=== PATIENT | female | born 1955 | race Caucasian/White ===

== ENCOUNTER 2019-06-06 12:31 | Observation (INO) | payer OTHER ==
[2019-05-30 11:30] LABS: BASOPHILS % 0.7 % (0.0-1.0); EOSINOPHILS # (AUTO) 0.1 (0.0-0.4); EOSINOPHILS % 1.8 % (0.0-6.0); HEMATOCRIT 42.1 % (34.2-44.1); HEMOGLOBIN 13.6 g/dL (12.0-16.0); LYMPHOCYTES # (AUTO) 1.9 (1.0-3.2); LYMPHOCYTES % 34.1 % (18.0-39.1); MEAN CORPUSCULAR HEMOGLOBIN 28.3 pg (28-32); MEAN CORPUSCULAR HGB CONC 32.3 g/dL (31-35); MEAN CORPUSCULAR VOLUME 87.5 fL (81-99); MONOCYTES # (AUTO) 0.7 (0.2-0.8); MONOCYTES % 11.8 % (4.4-11.3); NEUTROPHILS # (AUTO) 2.8 (2.1-6.9); NEUTROPHILS % 51.1 % (38.7-80.0); PLATELET COUNT 192 x10e3/uL (140-360); RED BLOOD COUNT 4.81 x10e6/uL (3.6-5.1); RED CELL DISTRIBUTION WIDTH 13.7 % (11.7-14.4)
[~2019-06-06] VITALS: Ht 154.9 cm; Wt 87.1 kg
[~2019-06-06 12:31] MED LIST: ADVAIR HFA 115-12 GM; ADVAIR HFA 115-12 GM IH; ADVAIR HFA 115-12 GM INH; AMITRIPTYLINE H10 MG PO; ATORVASTATIN CA10 MG PO; Aspirin PO; BACLOFEN10 MG PO; CETIRIZINE HCL10 MG PO; CLONAZEPAM0.5 MG PO; CLONAZEPAM1 MG PO; DICYCLOMINE HCL20 MG PO; FAMOTIDINE20 MG PO; GABAPENTIN400 MG PO; HYDROCHLOROTHIA25 MG PO; HYDROXYZINE HCL25 MG PO; METOPROLOL SUCC50 MG PO; MIRTAZAPINE15 MG PO; MONTELUKAST SOD10 MG PO; NORVASC5 MG PO; OMEPRAZOLE40 MG PO; PROTONIX40 MG/ML PO; PROVENTIL HFA6.7 GM; PROVENTIL HFA6.7 GM INH; REFRESH OPTIVE15 ML; SERTRALINE HCL50 MG PO; THEO-24100 MG PO; WELCHOL625 MG PO; [UNRECOGNIZED DRUG - CODE] PO
[2019-06-06] MEDS ORDERED: LIDOCAINE HCL 2% LOCAL INJ 5 ML SDV VIAL INJ ONE (14:05)
[2019-06-06] MEDS ORDERED: PROPOFOL IV EMULSION 10 MG/ML 50 ML VIAL ONE (14:05)
[2019-06-06] MEDS ORDERED: MIDAZOLAM HCL 2 MG/2 ML VIAL ONE ×2 (15:14→15:30)
[2019-06-06 20:00] VITALS: BP 147/101
[2019-06-06] MEDS: LORAZEPAM INJ 2 MG/ML VIAL IV PRN (20:45)
[2019-06-06] MEDS ORDERED: LORAZEPAM INJ 2 MG/ML VIAL ONE (20:48)
[2019-06-06 20:56] VITALS: BP 141/107
[2019-06-06 21:00] VITALS: BP 147/101
[2019-06-06 23:32] VITALS: BP 141/107
[2019-06-06 23:47] VITALS: BP 111/64
[2019-06-07] VITALS (8 sets, daily range): BP systolic 102–144; BP diastolic 64–73
[2019-06-07] MEDS: LORAZEPAM INJ 2 MG/ML VIAL IV PRN (03:45)
--- NOTE | 2019-06-07 06:27 | NUR ---
Called and spoke to Dr Russell Re: consult. She stated her privileges have for this facility. I called Dr Alba ( also consulted) office not open, was re-routed to and I left a message.
--- NOTE | 2019-06-07 07:45 | NUR ---
ASSESSMENT: Spiritual distress Pt tired and confused. Pt states she is "tired of being in pain." Pt's at bedside. Pt states she has been ill most of her life and is weary. Pt describes having a "sixth sense" and has had paranormal encounters. Pt struggles to make meaning of unusual experiences. Pt identifies as Religion. Intervention: Provided unhurried pastoral presence and empathic listening. Facilitated illness review and identification of emotions. 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 Outcome: Pt & expressed appreciation for visit. Will follow as able. MANOLO LAGUERRE Sustainable Design Coordinator Spiritual Care Department O: [phone]
--- NOTE | 2019-06-07 11:05 | Diagnostic Imaging Report ---
Examination: CT BRAIN WO CONTRAST History:Seizures. Comparison studies:Head CT performed January 24, 2016 Technique: Axial images were obtained from the skull base to the vertex. Coronal and sagittal images reconstructed from the axial data. Dose modulation, iterative reconstruction, and/or weight based adjustment of the mA/kV was utilized to reduce the radiation dose to as low as reasonably achievable. Intravenous contrast: None Findings: Scalp: No abnormalities. Bones: No fractures, blastic or lytic lesions. Brain sulci: Appropriate for age. Ventricles: Normal in size and configuration. No hydrocephalus. Extra-axial space: No abnormalities. Parenchyma: No masses, hemorrhage, or acute or chronic cortical based vascular insults.. Sellar/suprasellar region: No abnormalities. Craniocervical junction: Patent foramen magnum. No Chiari one malformation. Incidental findings: None. Impression: No new or acute intracranial abnormalities when compared to prior head CT performed January 24, 2016. Signed by: Dr. Margie Beaulieu M.D. on 06/07/2019 11:01 AM
--- NOTE | 2019-06-07 12:42 | NUR ---
DISCUSSED IN MDR'S OBSERVATION; POSSIBLE SEIZURES NURSING TO CALL FOR DC ORDERS WITH 2 OCLOCK F/U
[2019-06-07] MEDS ORDERED: HYDROXYZINE HCL 25 MG TAB PO SCH (17:00)
[2019-06-07] MEDS ORDERED: MONTELUKAST SODIUM 10 MG TAB PO SCH (21:00)
[2019-06-07] MEDS ORDERED: MIRTAZAPINE 15 MG TAB PO SCH ×2 (21:00)
[2019-06-07] MEDS ORDERED: GABAPENTIN 400 MG CAP PO SCH (21:00)
[2019-06-07] MEDS ORDERED: FAMOTIDINE 20 MG TAB PO SCH (21:00)
--- NOTE | 2019-06-08 04:41 | History and Physical ---
HISTORY OF PRESENT ILLNESS: The patient is a 64-year-old female, who has a past medical history positive for depression and anxiety, pseudoseizures, fatty liver, obesity, hyperlipidemia, hypertension, chronic back pain, came to the hospital for an EEG. She had a seizure-like episode and admitted to the medical floor for monitoring. CT of the head was negative. Rest of blood work negative. Dr. Alba, neurologist, saw the patient and recommended the patient to be discharged home. REVIEW OF SYSTEMS: CARDIOVASCULAR: NO chest pain or palpitation. RESPIRATORY: No shortness of breath. No cough. GASTROINTESTINAL: No nausea or vomiting. No diarrhea. GENITOURINARY: No frequency. No dysuria. ALLERGIES: SHE IS ALLERGIC TO A LONG LIST OF MEDICATION. SOCIAL HISTORY: She does not smoke. She does not drink. PAST MEDICAL HISTORY: Positive for fatty liver, obesity, hyperlipidemia, hypertension, gastritis, pseudoseizures, insomnia, and depression. PHYSICAL EXAMINATION: HEART: Showed regular rhythm. Normal S1, S2 sound. LUNGS: Clear bilaterally. EXTREMITIES: Show no evidence of cyanosis or hematoma. VITAL SIGNS: Blood pressure 117/73, temperature 97.8, heart rate 85 per minute, respiratory rate 18 per minute, O2 saturation 97%. FINAL IMPRESSION: 1. Pseudo-seizure. 2. Fatty liver. 3. Obesity. 4. Hyperlipidemia. 5. Hypertension. 6. Gastritis. 7. Back pain. 8. History of brain injury in the past. PLAN OF TREATMENT: Continue Bentyl 20 mg daily, Pepcid 20 mg at bedtime, gabapentin 400 mg three times a day, hydrochlorothiazide 25 mg daily. We are going to discontinue that and continue with Remeron 7.5 mg at bedtime, Singulair 10 mg daily, Protonix 40 mg daily, sertraline 25 mg daily. The patient is going to be discharged home and follow up with Dr. Alba, Neurology, who has recommended for her to be discharged home and do a followup EEG. She has diagnosis of seizure before. MD JOSE Pugh/CIARA /[id number]
[2019-06-08] MEDS ORDERED: HYDROCHLOROTHIAZIDE 25 MG TAB PO SCH (09:00)
[2019-06-08] MEDS ORDERED: PANTOPRAZOLE SOD 40 MG TABEC PO SCH (09:00)
[2019-06-08] MEDS ORDERED: SERTRALINE HCL 50 MG TAB PO SCH (09:00)
[2019-06-08] MEDS ORDERED: DICYCLOMINE HCL 20 MG TAB PO SCH (09:00)
--- NOTE | 2019-06-08 15:11 | Discharge Summary ---
HOSPITAL COURSE: A 64-year-old female, who has a past medical history positive for pseudoseizures, brain injury, fatty liver, obesity, hyperlipidemia, hypertension and recently diagnosed with gastritis, who had endoscopic evaluation. She came for an EGD. She had an episode of pseudoseizures, admitted to the hospital for observation. CT of the head came back negative. Blood work essentially unremarkable including CBC. The patient was seen by Neurology, Dr. Alba, who recommend the patient to be discharged home and follow up with him in a week for followup outpatient EEG. PHYSICAL EXAMINATION: VITAL SIGNS: Blood pressure 117/73, temperature 97.8, heart rate 85 per minute, respiratory rate 18 per minute, oxygen saturation 97%. HEART: Showed regular rhythm. Normal S1, S2 sound. LUNGS: Clear bilaterally. ABDOMEN: Soft. EXTREMITIES: Show no evidence of cyanosis or hematoma. IMPRESSION: 1. Pseudoseizures. 2. Fatty liver. 3. Obesity. 4. Gastritis. 5. Hyperlipidemia. 6. Hypertension. 7. Chronic back pain. 8. Insomnia. 9. Depression. PLAN OF TREATMENT: Continue same medication as dictated in my prior history and physical. Follow up with Neurology, Dr. Alba in a week for outpatient EEG. MD JOSE Pugh/CIARA /[id number]
--- OUTSIDE RECORDS SUMMARY | 2019-06-09 13:21 | XMS REPORT ---
Author [facility] Address Unknown Phone Unavailable Care Team Providers Care Bone Grinder Name Role Phone CECILKIANNA Unavailable Unavailable DILLAN IBRAHIM Unavailable Unavailable YOLANDA AGUILAR Unavailable Unavailable MACO DODD Unavailable Unavailable Payers Payer Name Policy Type Policy Number Effective Date Expiration Date Problems This patient has no known problems. Allergies, Adverse Reactions, Alerts Allergy Name Allergy Type Status Severity Reaction(s) Onset Date Inactive Date Treating Clinician Comments shellfish derived DA Active 2018-04-25 00:00:00 STEROIDS DA Active UT 2018-04-25 00:00:00 BLOOD THINNERS DA Active U 2018-04-25 00:00:00 tetanus and diphtheria toxoids DA Active 2017-08-01 00:00:00 penicillin G DA Active 2017-08-01 00:00:00 Sulfa (Sulfonamide Antibiotics) DA Active UT 2016-06-17 00:00:00 Tetanus Vaccines and Toxoid DA Active UT 2016-06-17 00:00:00 iodine DA Active UT 2016-06-17 00:00:00 codeine DA Active MO 2016-06-17 00:00:00 benzonatate DA Active MO 2016-06-17 00:00:00 albuterol DA Active MO 2016-06-17 00:00:00 aminocaproic acid DA Active MO 2016-06-17 00:00:00 clindamycin DA Active UT 2016-06-17 00:00:00 ciprofloxacin DA Active MO 2016-06-17 00:00:00 cyclobenzaprine DA Active MO 2016-06-17 00:00:00 brimonidine DA Active MO 2016-06-17 00:00:00 STERIODS DA Active UT 2016-06-17 00:00:00 Medications This patient has no known medications. Encounters Start Date/Time End Date/Time Encounter Type Admission Type Attending [facility] Facility Care Department Encounter ID 2019-03-08 13:44:00 2019-03-08 13:44:00 Emergency E MHSE [id number] Results Test Description Test Time Test Comments Text Results Atomic Results Result Comments CT BRAIN WO 2019-06-07 11:00:00 [place] [address] Patient Name: FIDELINA SARMIENTO MR #: [id number] : 1955 Age/Sex: 64/F Req #: [id number] Adm Physician: KIANNA HOYT MD Ordered by: KIANNA HOYT MD Report #: [id number] Location: [facility] Room/Bed: [place] [address] Procedure: [id number] CT/CT BRAIN WO Exam Date: 06/07/19 Exam Time: 1000 REPORT STATUS: Signed Examination: CT BRAIN WO CONTRAST History:Seizures. Comparison studies:Head CT performed January 24, 2016 Technique: Axial images were obtained from the skull base to the vertex. Coronal and sagittal images reconstructed from the axial data. Dose modulation, iterative reconstruction, and/or weight based adjustment of the mA/kV was utilized to reduce the radiation dose to as low as reasonably achievable. Intravenous contrast: None Findings: Scalp: No abnormalities. Bones: No fractures, blastic or lytic lesions. Brain sulci: Appropriate for age. Ventricles: Normal in size and configuration. No hydrocephalus. Extra-axial space: No abnormalities. Parenchyma: No masses, hemorrhage, or acute or chronic cortical based vascular insults.. Sellar/suprasellar region: No abnormalities. Craniocervical junction: Patent foramen magnum. No Chiari one malformation. Incidental findings: None. Impression: No new or acute intracranial abnormalities when compared to prior head CT performed January 24, 2016. Signed by: Dr. Tyrone Beaulieu M.D. on 06/07/2019 11:01 AM Dictated By: TYRONE DING MD 00 Transcribed By: DAREN on 06/07/191100 COPY TO: KIANNA HOYT MD TERMINAL ILEUM 2018-07-18 13:02:00 RUN DATE: 07/18/18 [facility] PAGE 1 RUN TIME: 1302 Specimen Inquiry RUN USER: INTERFACE PATIENT: FIDELINA SARMIENTO LOC: [facility] U #: [id number] AGE/SX: 63/F ROOM: RE07/14/18REG DR: Kianna Hoyt MD : 57 BED: DIS: STATUS: [facility] TLOC: SPEC #: [id number] RECD: 07/15/18 STATUS: FEMI SRIVASTAVA #: [id number] BOB: [birth year] [facility] DR: Kianna Hoyt MD ENTERED: 07/15/18 SP TYPE: TERM ILEUM OTHR DR: Mark Pacheco MD ORDERED: GROSS COPIES TO: Kianna Hoyt MD [address] [place] [id number] Mark Pacheco MD [address] [id number] PROCEDURES: GROSS (07/18/18-8928) TISSUES: 1. ILEUM, NOS - TERMINAL BX 2. COLON, NOS - RANDOM BX 3. DESCENDING COLON - BX CLINICAL HISTORY COLLECTION DATE: 07/14/18 ABDOMINAL PAIN, LOOSE STOOLS, COLON SCREENING FINAL DIAGNOSIS Terminal ileum, biopsy: SMALL BOWEL MUCOSA WITH UNREMARKABLE VILLOUS ARCHITECTURE AND MINIMAL CHRONIC INFLAMMATION NEGATIVE FOR MALIGNANCY Random colon, biopsy: COLONIC MUCOSA WITH MILD CHRONIC INFLAMMATION AND SCATTERED LYMPHOID AGGREGATES MILD REACTIVE EPITHELIAL CHANGE PRESENT NO HYPERPLASTIC OR ADENOMATOUS CHANGE PRESENT NEGATIVE FOR MALIGNANCY Descending colon, biopsy: COLONIC MUCOSA WITH PROMINENT LYMPHOID AGGREGATES AND MILD EDEMA NO HYPERPLASTIC OR ADENOMATOUS CHANGE PRESENT CONTINUED ON NEXT PAGE RUN DATE: 07/18/18 [place] - [facility] PAGE 2 RUN TIME: 1302 Specimen Inquiry RUN USER: INTERFACE SPEC #: [id number] PATIENT: FIDELINA SARMIENTO #[id number] (Continued) FINAL DIAGNOSIS (Continued) NEGATIVE FOR MALIGNANCY RRB/sm D [phone] MACROSCOPIC Specimen (1) is received in formalin, labeled with the patient's name, identified as "terminal ileum", and consists of oviedo biopsy tissue measuring 0.3 cm, submitted as (1). Specimen (2) is received in formalin, labeled with the patient's name, identified as "random colon", and consists of muliplt pink-light oviedo biopsy tissue measuring 0.5 cm in aggregate, submitted as (2). Specimen (3) is received in formalin, labeled with the patient's name, identified as "descending colon", and consists of red-brown biopsy tissue measuring 0.25 cm in aggregate, submitted as (3). GROSS PERFORMED AT [facility] [address] [place] [address] [phone] MICROSCOPIC MICROSCOPIC PERFORMED AT [facility] All of the stains, including any controls performed, stain appropriately. [facility] [address] [place] [address] (p)[phone] PERFORMING SITE Diagnosis performed at: [facility], [place] [address] [place], [place] [address] CONTINUED ON NEXT PAGE RUN DATE: 07/18/18 [facility]ella Cardeeo [facility] PAGE 3 RUN TIME: 1302 Specimen Inquiry RUN USER: INTERFACE SPEC #: [id number] PATIENT: FIDELINA SARMIENTO #[id number] (Continued) Signed SIGNATURE ON FILE Luis Chew 07/18/18 1302 END OF REPORT GLUBED 2018-07-14 13:39:00 GLUBED (test code=GLUBED) 91 mg/dL 74-106 Performed by certified cold molding press operator at [facility] [id number] 12:18:00* Test Item Value Reference Range Comments POTASSIUM (test code=K) 3.2 mmol/L 3.5-5.1 BASIC METABOLIC [id number] 12:23:00* Test Item Value Reference Range Comments SODIUM (test code=NA) 139 mmol/L 136-145 POTASSIUM (test code=K) 3.1 mmol/L 3.5-5.1 CHLORIDE (test code=CL) 103.0 mmol/L 98-107 CARBON DIOXIDE (test code=CO2) 27.0 mmol/L 21-32 ANION GAP (test code=GAP) 12.1 10-20 GLUCOSE (test code=GLU) 93 mg/dL 74-106 BLOOD UREA NITROGEN (test code=BUN) 14 mg/dL 7-18 GLOMERULAR FILTRATION RATE (test code=GFR) > 60 mL/min >=60 Estimated GFR by using Modified MDRD formula.Chronic kidney disease is defined as either kidney damageor GFR <60 mL/min/1.73 m2 for >3 months. CREATININE (test code=CREAT) 0.70 mg/dL 0.55-1.02 Note change in reference range due to change in reagent. BUN/CREATININE RATIO (test code=BUN/CREA) 20.6 10-20 CALCIUM (test code=CA) 9.5 mg/dL 8.5-10.1 CBC W/AUTO [id number] 12:19:00* Test Item Value Reference Range Comments WHITE BLOOD CELL (test code=WBC) 6.3 K/mm3 4.5-12.5 RED BLOOD CELL (test code=RBC) 4.97 mill/mm3 3.7-5.2 HEMOGLOBIN (test code=HGB) 13.7 gram/dL 11.5-15.5 HEMATOCRIT (test code=HCT) 42.4 % 36.0-46.0 MEAN CELL VOLUME (test code=MCV) 85.3 fL 80-98 MEAN CELL HGB (test code=MCH) 27.6 picogram 27.0-33.0 MEAN CELL HGB CONCETRATION (test code=MCHC) 32.3 gram/dL 33.0-36.0 RED CELL DISTRIBUTION WIDTH (test code=RDW) 14.0 % 11.6-16.2 RED CELL DISTRIBUTION WIDTH SD (test code=RDW-SD) 43.2 fL 37.0-51.0 PLATELET COUNT (test code=PLT) 201 K/mm3 150-450 MEAN PLATELET VOLUME (test code=MPV) 11.3 fL 6.7-11.0 NEUTROPHIL % (test code=NT%) 64.8 % 39.0-69.0 IMMATURE GRANULOCYTE % (test code=IG%) 0.5 % 0.0-5.0 LYMPHOCYTE % (test code=LY%) 26.3 % 25.0-55.0 MONOCYTE % (test code=MO%) 7.8 % 0.0-10.0 EOSINOPHIL % (test code=EO%) 0.0 % 0.0-5.0 BASOPHIL % (test code=BA%) 0.6 % 0.0-1.0 NUCLEATED RBC % (test code=NRBC%) 0.0 % 0-0 NEUTROPHIL # (test code=NT#) 4.07 K/mm3 1.8-7.7 IMMATURE GRANULOCYTE # (test code=IG#) 0.03 x10 3/uL 0-0.03 LYMPHOCYTE # (test code=LY#) 1.65 K/mm3 1.0-5.0 MONOCYTE # (test code=MO#) 0.49 K/mm3 0-0.8 EOSINOPHIL # (test code=EO#) 0.00 K/mm3 0.0-0.5 BASOPHIL # (test code=BA#) 0.04 K/mm3 0.0-0.2 NUCLEATED RBC # (test code=NRBC#) 0.00 K/mm3 0.0-0.1 MANUAL DIFF REQUIRED (test code=MDIFF) NO BASIC METABOLIC [id number] 12:18:00* Test Item Value Reference Range Comments SODIUM (test code=NA) 139 mmol/L 136-145 POTASSIUM (test code=K) 3.1 mmol/L 3.5-5.1 CHLORIDE (test code=CL) 103.0 mmol/L 98-107 CARBON DIOXIDE (test code=CO2) mmol/L 21-32 ANION GAP (test code=GAP) 10-20 GLUCOSE (test code=GLU) mg/dL 74-106 BLOOD UREA NITROGEN (test code=BUN) mg/dL 7-18 GLOMERULAR FILTRATION RATE (test code=GFR) mL/min >=60 CREATININE (test code=CREAT) mg/dL 0.55-1.02 BUN/CREATININE RATIO (test code=BUN/CREA) 10-20 CALCIUM (test code=CA) mg/dL 8.5-10.1 GASTRIC,[id number] 15:58:00 RUN DATE: 06/10/18 [place] - Lab PAGE 1 RUN TIME: 1558 Specimen Inqui ry RUN USER: INTERFACE PATIENT: FIDELINA SARMIENTO ACCT #: V [id number] LOC: [facility] U #: [id number] AGE/SX: 63/F ROOM: RE06/09/18[facility] DR: Kianna Hoyt MD : 57 BED: DIS: STATUS: [facility] TLOC: SPEC #: [id number] RECD: 06/09/18 STATUS: FEMI SRIVASTAVA #: [id number] BOB: [birth year]- SUBM DR: Kianna Hoyt MD ENTERED: 06/09/18 SP TYPE: GASTRIC BX OTHR DR: Mark Pacheco MD ORDERED: GROSS COPIES TO: Kianna oHyt MD [address] [place] [address] Mark Pacheco MD [address] [facility] [address] [place], [place] [address] PROCEDURES: GR OSS (06/10/18-105) TISSUES: GASTRIC FUNDUS - POLYP BX CS CLIN ICAL HISTORY COLLECTION DATE: 06/09/2018 HX: STOMACH POLYP DIANE VASQUEZ POLYPS FINAL DIAGNOSIS Gastric polyps, biopsy: FUNDIC TYPE GASTRIC POLYPS NEGATIVE FOR MALIGNANCY DMW/sm D 04605 MACROSCOPIC The specimen is received in formalin, labeled with the taylor ent's name, and identified as "gastric polyp snare". It consists of a oviedo dc ypoid fragment of tissue measuring 0.6 X 0.4 X 0.4 cm and multiple oviedo fragmen ts of tissue measuring 1.2 cm in aggregate. The polypoid portion is bisected and submitted CONTINUED ON NEXT PAGE ------ ------RUN DATE: 06/10/18 [facility] PAGE 2 RUN TIME: 1558 Specimen Inquiry RUN USER: INTERFACE SPEC #: [id number] PATIENT: FIDELINA SARMIENTO #[id number] (Continued) MACROSCOPIC (Continued) for microscopic evaluation in cassette (1A) and the remaining fragments are submitted for microscopic evaluation in cassette (1B). GROSS PERFORMED AT [facility] [address] [place] [address] ([phone] MICROSCOPIC MICR OSCOPIC PERFORMED AT [facility] All of the stains, including any c ontrols performed, stain appropriately. [facility] [address] [place] [address] (p)[phone] PERFORMING SITE Mabel gnosis performed at: [facility], [place] [address] [place] [address] Signed SIGN ATURE ON FILE Dee Dee Dey 06/10/18 1558 -------- ---- END OF REPORT TROPONIN [id number] 16:49:00* Test Item Value Reference Range Comments TROPONIN I (MICHAEL) (test swbw=341) < ng/mL 0.00-0.03 B-TYPE NATRIURETIC FACTOR (BNP)2018-05-14 16:49:00* Test Item Value Reference Range Comments B-TYPE NATRIURETIC PEPTIDE (BEAKER) (test ssss=133) 13 pg/mL 0-100 [id number] 16:42:00* Test Item Value Reference Range Comments MAGNESIUM (BEAKER) (test npjb=411) 2.2 mg/dL 1.6-2.6 Specimen slightly hemolyzed BASIC METABOLIC [id number] 16:42:00* Test Item Value Reference Range Comments SODIUM (BEAKER) (test cmyi=241) 143 meq/L 136-145 POTASSIUM (BEAKER) (test ijtb=238) 3.5 meq/L 3.5-5.1 Specimen slightly hemolyzed CHLORIDE (BEAKER) (test keia=660) 100 meq/L 98-107 CO2 (BEAKER) (test zkrf=993) 30 meq/L 22-29 BLOOD UREA NITROGEN (BEAKER) (test bxor=666) 9 mg/dL 7-21 CREATININE (BEAKER) (test rotl=942) 0.76 mg/dL 0.57-1.25 Specimen slightly hemolyzed GLUCOSE RANDOM (BEAKER) (test bivp=226) 108 mg/dL 70-105 CALCIUM (BEAKER) (test whbr=019) 10.3 mg/dL 8.4-10.2 EGFR (BEAKER) (test ifat=5665) 77 mL/min/1.73 sq m ESTIMATED GFR IS NOT ACCURATE CREATININE CLEARANCE IN PREDICTING GLOMERULAR FILTRATION RATE. ESTIMATED GFR IS NOT APPLICABLE FOR DIALYSIS PATIENTS. CBC W/PLT COUNT & AUTO [id number] 16:27:00* Test Item Value Reference Range Comments WHITE BLOOD CELL COUNT (BEAKER) (test rnwo=440) 6.8 K/ L 3.5-10.5 RED BLOOD CELL COUNT (BEAKER) (test eszv=453) 5.11 M/ L 3.93-5.22 HEMOGLOBIN (BEAKER) (test rczq=115) 14.4 GM/DL 11.2-15.7 HEMATOCRIT (BEAKER) (test jtxa=328) 44.5 % 34.1-44.9 MEAN CORPUSCULAR VOLUME (BEAKER) (test wpkq=779) 87.1 fL 79.4-94.8 MEAN CORPUSCULAR HEMOGLOBIN (BEAKER) (test rjqx=985) 28.2 pg 25.6-32.2 MEAN CORPUSCULAR HEMOGLOBIN CONC (BEAKER) (test qkms=620) 32.4 GM/DL 32.2-35.5 RED CELL DISTRIBUTION WIDTH (BEAKER) (test qxtg=947) 13.5 % 11.7-14.4 PLATELET COUNT (BEAKER) (test zbbn=755) 214 K/CU MM 150-450 MEAN PLATELET VOLUME (BEAKER) (test pdpl=015) 10.9 fL 9.4-12.3 NUCLEATED RED BLOOD CELLS (BEAKER) (test iuoi=659) 0 /100 WBC 0-0 NEUTROPHILS RELATIVE PERCENT (BEAKER) (test wjcg=718) 67 % LYMPHOCYTES RELATIVE PERCENT (BEAKER) (test nlae=830) 25 % MONOCYTES RELATIVE PERCENT (BEAKER) (test etgu=538) 8 % EOSINOPHILS RELATIVE PERCENT (BEAKER) (test gkwb=621) 0 % BASOPHILS RELATIVE PERCENT (BEAKER) (test ghql=736) 0 % NEUTROPHILS ABSOLUTE COUNT (BEAKER) (test stfh=077) 4.57 K/ L 1.56-6.13 LYMPHOCYTES ABSOLUTE COUNT (BEAKER) (test drvr=573) 1.68 K/ L 1.18-3.74 MONOCYTES ABSOLUTE COUNT (BEAKER) (test ceib=875) 0.51 K/ L 0.24-0.36 EOSINOPHILS ABSOLUTE COUNT (BEAKER) (test ikqf=438) 0.00 K/ L 0.04-0.36 BASOPHILS ABSOLUTE COUNT (BEAKER) (test zksk=078) 0.03 K/ L 0.01-0.08 IMMATURE GRANULOCYTES-RELATIVE PERCENT (BEAKER) (test adxo=1460) 0 % 0-1 RAD, CHEST, 1 VIEW, NON [id number] 15:54:00Reason for exam:->chest painFINAL REPORT INDICATION: chest pain COMPARISON:January 20, 2016 TECHNIQUE: Chest radiograph, single view, portable technique. FINDINGS / IM PRESSION: No pneumothorax, consolidation, pulmonary edema, or pleural effusion i s demonstrated. Cardiac and mediastinal contours are unremarkable for portable t echnique. Osseous structures unremarkable. Signed: Nelson Adam MDReport Cyndi ified Date/Time: 05/14/2018 15:54:56 Reading Location: [facility] C013X Ortho Consu Reading Room Electronically signed by: NELSON ADAM M.D. on 05/14 03:54 PM [id number] 13:35:00 RUN DATE: 04/01/18 [place] - Lab PAGE 1 RUN TIME: 1335 Specimen Inqui ry RUN USER: INTERFACE PATIENT: FIDELINA SARMIENTO ACCT #: V [id number] LOC: [facility] U #: [id number] AGE/SX: 63/F ROOM: RE03/31/18REG DR: Kianna Hoyt MD : 57 BED: DIS: STATUS: [facility] TLOC: SPEC #: [id number] RECD: 03/31/18 STATUS: FEMI REVandana #: [id number] BOB: [birth year]- SUBM DR: Kianna Hoyt MD ENTERED: 03/31/18 SP TYPE: STOMACH OTHR DR: Mark Pacheco MD ORDERED: GROSS COPIES TO: Kianna Hoyt MD [address] [place] [address] Mark Pacheco MD [address] [facility] [address] [place], [place] [address] PROCEDURES: GR OSS (04/01/18-1134) TISSUES: 1. BODY BIOPSY OF STOMACH - POLYP 2. DUODENUM, NOS - BX 3. ANTRAL BIOPSY - H-PYLORI 4. BODY BIOPSY OF STOMACH - BX CLINICAL HISTORY COLLECTION DATE: 03/31/18 HE ARTBURN FINAL DIAGNOSIS Gastric body polyp, biopsy: HYPERPLAST IC POLYP, GASTRIC MUCOSA SEPARATE FRAGMENTS GASTRIC MUCOSA WITH NO SIGNIF ICANT PATHOLOGIC ALTERATION NEGATIVE FOR HELICOBACTER ORGANISMS NEGATIVE FOR MALIGNANCY Duodenum, biopsy: DUODENAL MUCOSA WITH UNREMARKABLE VILLOUS ARCHITECTURE AND MILD CHRONIC INFLAMMATION NO INTRAEPITHELIAL ACUTE OR CHRONIC INFLAMMATION NEGATIVE FOR MAL IGNANCY Gastric antrum, biopsy: CONT INUED ON NEXT PAGE RUN DATE: 04/01/18 [place] - Lab PAGE 2 RUN TIME: 1335 Specimen Inquiry RUN USER: INTERFACE SPEC #: [id number] PATIENT: FIDELINA SARMIENTO #[id number] (Continued) FINAL DIAGNOSIS (Continued) REACTIVE GASTROPATHY NO ACUTE INFLAMMATORY INFILTRATE PRESENT NEGATIVE FOR INTESTINAL METAPLA ROMA NEGATIVE FOR HELICOBACTER ORGANISMS NEGATIVE FOR MALIGNANCY Gastric body, biopsy: FRAGMENT OF GASTRIC MUCOSA WITH NO PATHOLO GIC ALTERATION NEGATIVE FOR HELICOBACTER ORGANISMS RRB/duke Dye [phone] MACROSCOPIC The first specimen is received in formalin, labeled with the patient's name, identified as "polyp body", and consists of pink-oviedo biopsy tissue measuring 0.3 cm in aggregate, submitted as (1). The second specimen is received in formalin, labeled with the patie nt's name, identified as "duodenum", and consists of oviedo biopsy tissue measuri ng 0.35 cm in aggregate, submitted as (2). The third specimen is receive d in formalin, labeled with the patient's name, identified as "antrum", and co nsists of pink biopsy tissue measuring 0.3 cm in aggregate, submitted as (3) f or H E and Giemsa stains. The fourth specimen is received in formalin, lab eled with the patient's name, identified as "body", and consists of pink biops y tissue measuring 0.4 cm in aggregate, submitted as (4). GROSS PERFORME D AT [facility] [address] [place] [address], [place] [address] (p)[phone] MICROSCOPIC MICROSCOPIC PERFORMED A T [facility] All of the stains, including any controls performed, stain appropriately. [facility] [address] [place] [address], CONTINUED ON NEXT PAGE RUN DATE: [facility] PAGE 3 RUN TIME: 1335 Specimen Inquiry RUN US ER: INTERFACE -------- ----SPEC #: [id number] PATIENT: FIDELINA SARMIENTO #[id number] (Continued) MICROSCOPIC (Continued) [place] [address] (P)[phone] PERFORMING SITE Diagnosis lilibeth d at: [facility], [place] [address] [facility] [address] Signed SIGNATURE ON FILE Luis Chew 04/01/18 1335 END OF REPORT BASIC METABOLIC [id number] 09:09:00* Test Item Value Reference Range Comments SODIUM (MICHAEL) (test xxro=266) 141 meq/L 136-145 POTASSIUM (BEAKER) (test ofin=625) 4.0 meq/L 3.5-5.1 CHLORIDE (BEAKER) (test jeks=928) 104 meq/L 98-107 CO2 (BEAKER) (test mxez=574) 27 meq/L 22-29 BLOOD UREA NITROGEN (BEAKER) (test gqrq=401) 19 mg/dL 7-21 CREATININE (BEAKER) (test sybu=009) 0.87 mg/dL 0.57-1.25 GLUCOSE RANDOM (BEAKER) (test bmay=823) 100 mg/dL 70-105 CALCIUM (BEAKER) (test fbhn=158) 10.1 mg/dL 8.4-10.2 EGFR (BEAKER) (test etmh=5985) 66 mL/min/1.73 sq m ESTIMATED GFR IS NOT ACCURATE CREATININE CLEARANCE IN PREDICTING GLOMERULAR FILTRATION RATE. ESTIMATED GFR IS NOT APPLICABLE FOR DIALYSIS PATIENTS. [id number] 08:53:00* Test Item Value Reference Range Comments PARTIAL THROMBOPLASTIN TIME (BEAKER) (test koct=259) 30.3 seconds 22.5-36.0 CBC (HEMOGRAM ONLY)2017-12-06 08:44:00* Test Item Value Reference Range Comments WHITE BLOOD CELL COUNT (BEAKER) (test aytw=316) 7.9 K/ L 3.5-10.5 RED BLOOD CELL COUNT (BEAKER) (test ousv=147) 5.35 M/ L 3.93-5.22 HEMOGLOBIN (BEAKER) (test aekd=616) 15.1 GM/DL 11.2-15.7 HEMATOCRIT (BEAKER) (test wolo=311) 46.9 % 34.1-44.9 MEAN CORPUSCULAR VOLUME (BEAKER) (test ydjf=503) 87.7 fL 79.4-94.8 MEAN CORPUSCULAR HEMOGLOBIN (BEAKER) (test egbk=551) 28.2 pg 25.6-32.2 MEAN CORPUSCULAR HEMOGLOBIN CONC (BEAKER) (test pytu=300) 32.2 GM/DL 32.2-35.5 RED CELL DISTRIBUTION WIDTH (BEAKER) (test nawz=844) 13.7 % 11.7-14.4 PLATELET COUNT (BEAKER) (test ioje=594) 230 K/CU MM 150-450 MEAN PLATELET VOLUME (BEAKER) (test sfqd=721) 10.6 fL 9.4-12.3 NUCLEATED RED BLOOD CELLS (BEAKER) (test izui=091) 0 /100 WBC 0-0 EEG MONITORING WITH VIDEO RECORDING EACH 24 [id number] 16:47:00Reason for exam:->EMU admit- h/o PNESEPILEPSY MONITORING UNIT - VIDEO EEG STUDY EEG NUMBER: [id number] ACCESSION NUMBERS: [id number], [id number], [id number], [id number] OF RECORDIN10/04/17, and recording started at 10:42 END OF RECORDIN10/08/17, and recording ended at 08:04 TOTAL RECORDING HOURS: 93.5ICD - 10: F44.9 TECHNICAL SUMMARY: This continuous Video-EEG record is run with a digital EEG machine, 24 channels, with standard International System 10-20 electrode placements, eye movement leads, and an EKG lead.Recording Day #1 (10/04/17, 10:42 to 10/05/17, 06:15) BASELINE AWAKE: During the maximally awake state, a posterior dominant rhythm of 10 Hz alpha is present over bilateral occipital regions. More anteriorly, similar as well as faster activities occur, including much admixtures of 18-21 Hz beta activity. SLEEP: As the patient enters drowsiness, the overall background amplitudes are relatively diminished, while increased amounts of diffuse 5-7 Hz theta and rhythmical slowing emerge. With sleep, positive occipital sharp transients, vertex waves, and sleep spindles are present and symmetrically expressed. HYPERVENTILATION is not performed. PHOTIC STIMULATION is not performed. EVENTS: There are approximately 13 typical clinical events observed during recording day #1 Clinical: The typical clinical semiology is variable with waxing and waning intensity throughout each event and throughout the day, often with indistinct clinical offset. Onset is exclusively out of wakefulness. The majority of events start with right arm irregular/starting-stopping tremulousness with subsequent regional and occasion al contralateral propagation. There is often irregular/starting-stopping lateral head movement. At times, there is axial flexion/extension (rocking/swaying move ments); grimacing facial expression with eyes closed and mouth open; crying/moan ing vocalizations; dysarthric, halting and immature style speech; occasional upw horace gaze deviation with eyes open; and decreased responsiveness to stimulation. At times, the patient is able to respond to questions and commands appropriately during these events. On other occasions, patient is poorly responsive and amnes tic for some details of events. Electrographically, these events coincide with no epileptiform correlate. During periods of clinical unresponsiveness, the pat ient's typical awake background activity is present, including a normal posterio r dominant rhythm. Recording Day #2 (10/05/17, 06:15 to 10/06/17, 06:15) BASE LINE AWAKE, SLEEP: Not significantly changed compared to the previous day. EV ENTS: There are approximately 16 typical events observed during recording day #2 .Clinical: The events observed during recording day #2 are of a similar variable waxing/waning semiology as those described during recording day #1. In addition, several events are triggered by or associated with pain or noxious stimuli, e.g. "stabbing" sensation in chest/back, "electric shock" sensations in the back or legs, "high-pitched noise." Electrographically, these events coincide with no epileptiform correlate. Recording Day #3 (10/06/17, 06:15 to 10/07/17, 06:15) BASELINE AWAKE, SLEEP: Not significantly changed compared to the previous day. EVENTS: There are approximately 14 typical events observed during recording day #3.Clinical: The events observed during recording day #3 are of a similar robb iable waxing/waning semiology as those described during recording days #1 and 2. Electrographically, these events coincide with no epileptiform correlate. Rec ording Day #4 (10/07/17, 06:15 to 10/08/17, 08:04) BASELINE AWAKE, SLEEP: Not significantly changed compared to the previous day. EVENTS: There are approxi mately 10 typical events observed during recording day #4.Clinical: The events o bserved during recording day #4 are of a similar variable waxing/waning semiolog y as those described during recording days #1-3. SUMMARY OF VIDEO-EEG MONITORI NG COURSE: 1). Normal EEG of the awake, drowsy, and asleep states. 2). Approxim ately 53 habitual clinical events are observed as detailed above, described by t he patient and her as representing the full spectrum of the patient's charles bitual events of interest. Events are mostly characterized by unilateral arm irr egular/starting-stopping tremulousness with subsequent regional or contralateral propagation. There is wax/waning lateral head movement, followed by axial flexi on/extension (rocking/swaying movements), grimacing facial expression with eyes closed and mouth open, crying/moaning vocalizations, dysarthric, halting and imm ature style speech. For all captured events, concurrent EEG recordings coincide with no epileptiform correlate. Clinical Correlation: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
--- OUTSIDE RECORDS SUMMARY | 2019-06-09 13:21 | XMS REPORT | Summary of Care ---
Author Author [facility] - Health Organization [facility] - Health Address Unknown Phone Unavailable Care Team Providers Care Company Controller Name Role Phone Fabien Fernandes MD Unavailable Leena Bañuelosynpatricia MURILLO PCP Reason for Visit * Reason Comments Pain Encounter Details Care Team Description Date Type Department Sukh Harris MD [id number] [place] [address] Spondylosis of lumbar region without myelopathy or radiculopathy (Primary Dx); Chronic lumbar radiculopathy 01/12/2019 Office Visit [facility] - [address], [address] [place] [address] Allergies Comments Active Allergy Reactions Severity Noted Date Azithromycin Itching 01/07/2019 Ciprofloxacin Rash 01/27/2018 Clindamycin Other - See Medium 10/05/2016 comments, Itching Clonazepam Itching, Medium 11/23/2017 Rash, Swelling All steroids-muscle weakness t Corticosteroids Rash 01/20/2016 (Glucocorticoids) Iodine Rash 10/05/2016 Lincomycin Rash Medium 09/15/2017 Nitrofurantoin Rash 01/27/2018 steroid Other [place]-3s Anaphylaxis 01/27/2018 States it would be fatal Penicillins Other - See High 01/20/2016 comments, Shortness of Breath Sulfa (Sulfonamide Other - See 01/20/2016 Antibiotics) comments, Swelling New string of tetanus- went to ER , medication for throat closing up Tetanus Vaccines And Swelling High 01/20/2016 Toxoid documented as of this encounter (statuses as of 01/12/2019) Medications End Date Status Medication Sig Dispensed Refills Start Date Active ALBUTEROL SULFATE Inhale. 0 (PROVENTIL INHALE) Active hydrOXYzine 25 mg tablet Take 25 mg by 0 mouth every 6 (six) hours. Active montelukast 10 mg tablet Take 10 mg by 0 mouth. Active cetirizine 10 mg tablet Take 10 mg by 3 mouth every 8 morning. Active LORazepam 0.5 mg tablet Take 0.5 mg 0 by mouth 8 daily. Active fluticasone-salmeterol Inhale 2 0 (ADVAIR HFA) 115-21 Puffs 2 (two) 8 mcg/actuation inhaler times daily. Active albuterol 90 Inhale 2 0 mcg/actuation inhaler Puffs 2 (two) times daily. Active hydroCHLOROthiazide 25 mg Take 1 tablet 90 tablet 3 tablet by mouth 8 daily. Active lidocaine 5 % (700 Apply 1 Patch 30 Each 2 mg/patch) to area(s) 9 patchIndications: Chronic every 12 bilateral low back pain (twelve) with right-sided hours. sciatica, Facet arthritis of lumbar region, DDD (degenerative disc disease), lumbar Active omeprazole 40 mg capsule TAKE 1 3 CAPSULE BY 9 MOUTH EVERY DAY Active VITAMIN D2 50,000 unit TAKE ONE 2 capsule CAPSULE BY 9 MOUTH ONCE A WEEK Active famotidine 20 mg tablet Take 20 mg by 3 mouth daily. 9 Active dicyclomine 20 mg tablet 0 9 Active estradiol (ESTRACE) 0.01 Insert 0.5 g 42.5 g 3 % (0.1 mg/gram) vaginal vaginally 9 creamIndications: with Recurrent UTI fingertip x 7 days , then x 2 week Active acetaminophen-codeine Take 1 tablet 60 tablet 2 (TYLENOL-CODEINE #3) by mouth 9 300-30 mg daily. tabletIndications: Radiculopathy of thoracolumbar region Active CBD oil (ABELARDO'S HOPE) Take by 0 20:1 with safflower mouth as needed (Seizure, pain). Active AMLODIPINE 5 mg tablet TAKE 1 TABLET 30 tablet 0 BY MOUTH 9 EVERY DAY Active GABAPENTIN 400 mg TAKE 1 90 capsule 2 capsuleIndications: CAPSULE BY 9 Radiculopathy of MOUTH THREE thoracolumbar region TIMES A DAY Active mirtazapine 30 mg Take 1 tablet 30 tablet 0 tabletIndications: by mouth at 9 Pseudoseizures bedtime. 01/12/2019 Active diphenhydrAMINE Take 1 20 capsule 0 (BENADRYL) 25 mg capsule by 9 capsuleIndications: mouth every 6 Allergic reaction, (six) hours initial encounter as needed for Itching or Allergies for up to 5 days. Active famotidine (PEPCID) 20 mg Take 1 tablet 10 tablet 0 tabletIndications: by mouth 2 9 Allergic reaction, (two) times initial encounter daily. Active LISINOPRIL 5 mg TAKE 1 TABLET 30 tablet 1 tabletIndications: BY MOUTH 9 Essential hypertension EVERY DAY documented as of this encounter (statuses as of 01/12/2019) Active Problems Problem Noted Date Seizures 12/16/2018 Obesity (BMI 30-39.9) 12/16/2018 Seizure disorder 05/17/2018 Recurrent UTI 05/17/2018 Diarrhea, unspecified type 05/17/2018 Frequent falls Seizure Overview: (nonepileptic psychogenic) documented as of this encounter (statuses as of 01/12/2019) Immunizations Name Administration Dates Next Due Influenza Virus Vaccine 03/21/2017 Influenza Virus Vaccine 04/19/2018 Quad ID [id number] YRS documented as of this encounter Social History Date Tobacco Use Types Packs/Day Years Used Former Smoker Smokeless Tobacco: Never Used Drinks/Week oz/Week Comments Alcohol Use No Sex Assigned at Date Recorded Not on file Industry Job Start Date Occupation Not on file Not on file Not on file Travel End Travel History Travel Start No recent travel history available. documented as of this encounter Last Filed Vital Signs Reading Time Taken Comments Vital Sign 115/76 01/12/2019 2:10 PM CDT Blood Pressure 104 01/12/2019 2:10 PM CDT Pulse - - Temperature - - Respiratory Rate - - Oxygen Saturation - - Inhaled Oxygen Concentration 83 kg (183 lb) 01/12/2019 2:10 PM CDT Weight 154.9 cm (5' 1") 01/12/2019 2:10 PM CDT Height 34.58 01/12/2019 2:10 PM CDT Body Mass Index documented in this encounter Progress Notes * Sukh Harris MD - 01/12/2019 2:00 PM CDT Chief Complaint:continuing back pain History of Present illness: John Nieto is a 63 year old female with longstanding lower back pain. Has had problems with constipation. . 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 Seen in neurology clinic here yesterday with a manifestation of pseudo seizure, recovered without incident; desired an increase in her T3 at that time to among other things assist her in sleeping, and presents today for evaluation to that end. Location: generalized through the lower back, but also the thoracic and cervical spines and the head and scalp as well -duration: longstanding/for years -context: in the context of also psychogenic factors and pseudoseizures -radiation: equivocal -timing: longstanding -quality: rather generalized and nonspecific -improves with: medication -worsens with: certain movements PAIN NRS SCALE 0-10 SCORE OVER LAST WEEK (0=no pain and 10=worst pain imaginable): Best:3/10 Worst: 10/10 Now: 12/28 CURRENT PAIN REGIMEN: -Tylenol #3 one tablet PO bid ADVERSE EFFECTS FROM CURRENT REGIMEN: A propensity for constipation. FUNCTIONAL STATUS ON CURRENT REGIMEN: Walks using walker or behind wheelchair. Baseline impairment/cerebral palsy is u nchanged; has adapted to slide down a nearby wall to avoid injuring herself when the episodes/pseudoseizures occur OTHER MEDS TRIED/ ADVERSE SIDE EFFECTS: Muscle relaxants: Flexeril, Robaxin, Baclofen, Zanaflex, Other Neuropathic agents:Lyrica, Gabapentin, Amitriptyline, Cymbalta, Other NSAIDS: Naproxen, Mobic, Celebrex, other Patient discontinued Tylenol 3 PAIN INTERVENTIONAL PROCEDURES DONE BY US/ DATES: No recent pain interventions. Current Outpatient Prescriptions Medication Sig Dispense Refill mirtazapine 15 mg tablet Take one tab at night for 10 days then 2 tablets at night for ten days then 3 tablets at night 90 tablet 2 acetaminophen-codeine (TYLENOL-CODEINE #3) 300-30 mg tablet Take 1 tablet by mouth daily. 30 tablet 0 gabapentin 400 mg capsule Take 1 capsule by mouth 3 (three) times daily. 90 capsule 2 lisinopril 5 mg tablet Take 1 tablet by mouth daily. 30 tablet 1 dicyclomine 20 mg tablet estradiol (ESTRACE) 0.01 % (0.1 mg/gram) vaginal cream Insert 0.5 g vaginall y with fingertip x 7 days , then x 2 week 42.5 g 3 famotidine 20 mg tablet Take 20 mg by mouth daily. 3 omeprazole 40 mg capsule TAKE 1 CAPSULE BY MOUTH EVERY DAY 3 VITAMIN D2 50,000 unit capsule TAKE ONE CAPSULE BY MOUTH TWICE A WEEK 2 lidocaine 5 % (700 mg/patch) patch Apply 1 Patch to area(s) every 12 (twelve ) hours. 30 Each 2 hydroCHLOROthiazide 25 mg tablet Take 1 tablet by mouth daily. 90 tablet 3 albuterol 90 mcg/actuation inhaler Inhale 2 Puffs 2 (two) times daily. cetirizine 10 mg tablet Take 10 mg by mouth every morning. 3 fluticasone-salmeterol (ADVAIR HFA) 115-21 mcg/actuation inhaler Inhale 2 Pu ffs 2 (two) times daily. gabapentin 300 mg capsule Take 300 mg by mouth 3 (three) times daily. LORazepam 0.5 mg tablet Take 0.5 mg by mouth daily. ALBUTEROL SULFATE (PROVENTIL INHALE) Inhale. amLODIPine 5 mg tablet Take 5 mg by mouth daily. hydrOXYzine 25 mg tablet Take 25 mg by mouth every 6 (six) hours. montelukast 10 mg tablet Take 10 mg by mouth. No current facility-administered medications for this visit. Past Medical History: Diagnosis Date Depression Hyperlipidemia Hypertension IBS (irritable bowel syndrome) Osteoporosis b/l hip Seizure (nonepileptic psychogenic) Past Surgical History: Procedure Laterality Date CHOLECYSTECTOMY HYSTERECTOMY TONSILLECTOMY Review of Systems (BOLDED IF POSITIVE, OTHERWISE NEGATIVE) Other pertinent positives annotated above in HPI. General: Fatigue, Unintentional Weight Loss or Weight Gain HEENT: Dry Mouth Cardio: Myocardial infarction/Heart Attack, Heart Rhythm Abnormalities, Abnormal EKGs, History of Coronary Stents, Blood Thinning Medication (Aspirin, Plavix/Cl opidogrel, Heparin/Lovenox) Pulm: Obstructive Sleep Apnea, Snore at night, Use CPAP machine, Smoker, Chron ic Obstructive Pulmonary Disease (COPD) GI: Constipation, Diarrhea, Nausea and Peptic Ulcer Disease, Blood in Stool :Difficulty Urinating Endo: Diabetesand Steroid use Neuro: Glaucoma, Difficulty Walking,Headaches, Numbness, Seizures, Strokes and Weakness MS:Neck Pain,Back Pain, Back Surgery and Muscle Aches Heme: Clotting Difficulties and Easy Bleeding Sleep: Daytime Somnolence, Fogginess of Thought, Inability to Complete Tasks,I nsomnia Psych: Depression, Anxiety, Thoughts Harming Oneself or Thoughts of Harming Ot hers All other systems reviewed and are normal. Physical Exam: BP 108/76 (BP Location: Left arm, Patient Position: Sitting, BP CUFF SIZE: Adult Large) | Pulse 82 | Ht 5' 1" (1.549 m) | Wt 177 lb (80.3 kg) | BMI 33.44 kg/m Body mass index is 33.44 kg/m. GENERAL:John mark is a well developed, well nourishedwoman HEENT:normocephalic atraumatic and moist mucous membranes, anicteric sclera bilaterally LUNGS:normal excursion, no respiratory distress CARDIOVASCULAR:normal pulse rate, warm extremities, no gross edema noted MUSCULOSKELETAL/NEUROLOGIC EXAM: Mental Status:there is some emotional lability and halting speech, but not herbert ssly mentally impaired; there is a little latency Gait-antalgic Upper Extremities Strength: Moves upper extremities well, but displays signs of congenital nerve palsies/poo r gripping. All of this is chronic/longstanding. Spine Exam: There is generalized tenderness of the cervical, thoracic, and lumbar spines, wo rse in the lower lumbar spine, right greater than left, without radiculopathy an d with negative bilateral straight leg raise. Sree signs- positive Axial loading Skin rolling Overreaction Laboratory Last Metabolic Panel (including BUN/Cr and LFTs) CMP NA (mmol/L) Date Value 08/31/2018 145 K (mmol/L) Date Value 08/31/2018 3.4 (L) CALCIUM (mg/dL) Date Value 08/31/2018 9.7 08/31/2018 9.7 CL (mmol/L) Date Value 08/31/2018 100 BUN (mg/dL) Date Value 08/31/2018 18 CREATININE (mg/dL) Date Value 08/31/2018 0.80 GLUCOSE (mg/dL) Date Value 08/31/2018 101 CO2 TOTAL (mmol/L) Date Value 08/31/2018 33 (H) ALBUMIN (g/dL) Date Value 05/02/2018 5.1 (H) T PROTEIN (g/dL) Date Value 05/02/2018 7.6 TOTAL BILI (mg/dL) Date Value 05/02/2018 0.4 ALT(SGPT) (U/L) Date Value 05/02/2018 55 (H) AST(SGOT) (U/L) Date Value 05/02/2018 32 ALK PHOS (U/L) Date Value 05/02/2018 80 Radiology Pertinent Films No recent imaging Medical Decision Making: Dx: - Encounter Diagnosis Name Primary? Radiculopathy of thoracolumbar region Yes Assessment/Plan: It is not untoward to resume T3 BID; we have cautioned to use OTC laxatives to c ompensate for constipating effects. Medications -increase T3 to BID Rehab: Physical therapy We will recommend an evaluation by PT with sessions to start in the future once patient's pain is better controlled. Psych: Pseudoseizures are perhaps a maladaptive pain behavior Follow Up: Right lumbar medial branch blocks at L2 -L3 , L3-L4 and L4-L5 levels. documented in this encounter Plan of Treatment Care Team Description Date Type Specialty Chas Poon MD [address] [place] [id number] [place] [address] [phone] Juanita Casas, PT 01/20/2019 Ancillary Visit Physical Therapy Chas Poon MD [address] [place] [id number] [place] [address] [id number] Juanita Casas, PT 01/25/2019 Ancillary Visit Physical Therapy Cassandra Pierre MD [address] [place] [address]. [place] [address] 01/30/2019 Office Visit Internal Medicine Dieter Zohu MD [address] [place] [id number] [place] [address] [id number] 02/01/2019 Office Visit Pulmonary Disease Juanita Casas, PT 02/03/2019 Ancillary Visit Physical Therapy Sukh Harris MD [address] [facility] [id number] [place] [address] [id number] 02/09/2019 Office Visit Pain Medicine Zoila Rodas AGNP [address] [place] [address] [phone] 03/01/2019 Office Visit Nephrology Sukh Harris MD [address] [address] [phone] 03/23/2019 Office Visit Pain Medicine Health Maintenance Due Date Last Done Comments HEPATITIS C (HCV) SCREEN 1955 DTaP,Tdap,and Td Vaccines 02/23/1975 (1 - Tdap) COLONOSCOPY 02/23/2006 Zoster Recombinant 02/23/2006 Vaccine (SHINGRIX) (1 of 2) INFLUENZA VACCINE 02/19/2019 04/19/2018, 03/21/2017 MAMMOGRAM 08/08/2019 08/08/2018 LUNG CANCER SCREEN: 10/19/2019 10/18/2018 Recommended for age 55-80 with 30 + pack year history PAP SMEAR 08/02/2021 08/02/2018 PNEUMOCOCCAL 0-64 YEARS Aged Out No longer eligible based COMBINED SERIES on patient's age to complete this topic documented as of this encounter Results Not on filedocumented in this encounter Visit Diagnoses Diagnosis Spondylosis of lumbar region without myelopathy or radiculopathy - Primary Lumbosacral spondylosis without myelopathy Chronic lumbar radiculopathy Thoracic or lumbosacral neuritis or radiculitis, unspecified documented in this encounter Insurance Type Payer Benefit Subscriber ID Effective Phone Address Plan / Dates Group Medicaid [facility] xxxxxxxxx 2015-P PLAN - MANAGED MEDICAID STAR PLUS resent documented as of this encounter
--- OUTSIDE RECORDS SUMMARY | 2019-06-09 13:21 | XMS REPORT | Summary of Care ---
Author Author [facility] - Health Organization [facility] - Health Address Unknown Phone Unavailable Care Team Providers Care Petrophysical Engineer Name Role Phone Fabien Fernandes MD Unavailable Leena Bañuelosynpatricia MURILLO PCP Reason for Visit * Reason Comments Pain Encounter Details Care Team Description Date Type Department Sukh Harris MD [id number] [place] [address] Spondylosis of lumbar region without myelopathy or radiculopathy (Primary Dx); Chronic lumbar radiculopathy 01/12/2019 Office Visit [facility] - [address], [address] [place] [address] Allergies Comments Active Allergy Reactions Severity Noted Date Azithromycin Itching 01/07/2019 Ciprofloxacin Rash 01/27/2018 Clindamycin Other - See Medium 10/05/2016 comments, Itching Clonazepam Itching, Medium 11/23/2017 Rash, Swelling All steroids-muscle weakness t Corticosteroids Rash 01/20/2016 (Glucocorticoids) Iodine Rash 10/05/2016 Lincomycin Rash Medium 09/15/2017 Nitrofurantoin Rash 01/27/2018 steroid Other [place]-3s Anaphylaxis 01/27/2018 States it would be fatal [...] Description Date Type Specialty Chas Poon MD [address] [place] [id number] [place] [address] [phone] Juanita Casas, PT 01/20/2019 Ancillary Visit Physical Therapy Chas Poon MD [address] [place] [id number] [place] [address] [phone] Juanita Casas, PT 01/25/2019 Ancillary Visit Physical Therapy Cassandra Pierre MD [address] [place] [address]. [place] [address] 01/30/2019 Office Visit Internal Medicine Dieter Zhou MD [address] [place] [id number] [place] [address] [id number] 02/01/2019 Office Visit Pulmonary Disease Juanita Casas, PT 02/03/2019 Ancillary Visit Physical Therapy Sukh Harris MD 301 [facility] [id number] [place], [place] [address] 02/09/2019 Office Visit Pain Medicine Zoila Rodas AGNP [address] [place] [address] [phone] 03/01/2019 Office Visit Nephrology Health Maintenance Due Date Last Done Comments [...] Phone Address Plan / Dates Group Medicaid [employer] [place] xxxxxxxxx 2015-P PLAN - MANAGED MEDICAID STAR PLUS resent documented as of this encounter
--- OUTSIDE RECORDS SUMMARY | 2019-06-09 13:21 | XMS REPORT | Summary of Care ---
Author Author [facility] - Health Organization [facility] - Health Address Unknown Phone Unavailable Care Team Providers Care Movie Editor Name Role Phone Fabien Fernandes MD Unavailable Leena Bañuelosynpatricia MURILLO PCP Reason for Visit * Reason Comments Pain Encounter Details Care Team Description Date Type Department Sukh Harris MD [id number] [place] [address] Spondylosis of lumbar region without myelopathy or radiculopathy (Primary Dx); Chronic lumbar radiculopathy 01/12/2019 Office Visit [facility] - [address], [address] [place] [address] Allergies Comments Active Allergy Reactions Severity Noted Date Azithromycin Itching 01/07/2019 Ciprofloxacin Rash 01/27/2018 Clindamycin Other - See Medium 10/05/2016 comments, Itching Clonazepam Itching, Medium 11/23/2017 Rash, Swelling All steroids-muscle weakness t Corticosteroids Rash 01/20/2016 (Glucocorticoids) Iodine Rash 10/05/2016 Lincomycin Rash Medium 09/15/2017 Nitrofurantoin Rash 01/27/2018 steroid Other [place]-3s Anaphylaxis 01/27/2018 States it would be fatal [...] Description Date Type Specialty Chas Poon MD [address] [place] [id number] [place] [address] [phone] Juanita Casas, PT 01/20/2019 Ancillary Visit Physical Therapy Chas Poon MD [address] [place] [id number] [place] [address] [phone] Juanita Casas, PT 01/25/2019 Ancillary Visit Physical Therapy Cassandra Pierre MD [address] [place] [address]. [place] [address] 01/30/2019 Office Visit Internal Medicine Dieter Zhou MD [address] [place] [id number] [place] [address] [phone] 02/01/2019 Office Visit Pulmonary Disease Juanita Casas, PT 02/03/2019 Ancillary Visit Physical Therapy Sukh Harris MD 301 [facility] [id number] [place], [place] 7[address] 02/09/2019 Office Visit Pain Medicine Zoila Rodas AGNP [address] [place] [address] [phone] 03/01/2019 Office Visit Nephrology Health Maintenance Due [...]
--- OUTSIDE RECORDS SUMMARY | 2019-06-09 13:21 | XMS REPORT ---
Author Author Admin, [place] Organization [facility] Address [address] [facility] [address] [place] [address] Phone Allergies, Adverse Reactions, Alerts Allergy Name Reaction Description Start Date Severity Status Provider SULFA Critical Active Chirag Yin MD IODINE Critical Active Chirag Yin MD PENICILLIN Critical Active Chirag Yin MD Conditions or Problems Problem Name Problem Code Onset Date Status Entry Date Provider Comment Standard Description Annotate Depression/anxiety 300.4 Active Chirag Yin MD Dysthymic disorder Hyperlipidemia 272.4 Active Chirag Yin MD Other and unspecified hyperlipidemia Hypertension 401.1 Active Chirag Yin MD Benign essential hypertension Seizure disorder 780.39 Active Chirag Yin MD Other convulsions Medication List Medication Instructions Start Date Stop Date Generic Name NDC Status Provider Patient Instruction No Drug Therapy Prescribed - none known did ask Chirag Yin MD Vital Signs Date Name Value Unit Range Description blood pressure, diastolic 71 mm[Hg] BP cruz blood pressure, systolic 109 mm[Hg] BP sys height E&M 61 [in_us] Bdy height pulse rate E&M 77 /min Heart rate respiratory rate E&M 18 /min Resp rate temperature E&M 98.0 [degF] Body temperature weight E&M 178.13 [lb_av] Weight Measured Encounters Date Encounter Provider Code Facility 14:00:59 [facility] New Patient [facility] - [id number] Chirag Yin MD [id number] [facility]
--- OUTSIDE RECORDS SUMMARY | 2019-06-09 13:22 | XMS REPORT | Summary of Care ---
Author Author [facility] - Health Organization [facility] - Health Address Unknown Phone Unavailable Care Team Providers Care Occupational Ther Name Role Phone Fabien Fernandes MD Unavailable Dewayne Almonte DO PCP Reason for Referral * (Routine) Referred By Contact Referred To Contact Status Reason Specialty Diagnoses / Procedures Leticia Handy MD [address] [place] [phone] New Request Obstetrics & Diagnoses Gynecology Interstitial cystitis P rocedures CONSULT/REFERRAL UROGYN UroGyn Reason for Visit * Reason Comments Follow-up * (Routine) Referred By Contact Referred To Contact Status Reason Specialty Diagnoses / Procedures De Sherman, NICOLE [address] [place] [address] Dewayne Almonte DO [address] [address] New Request Internal Diagnoses Medicine Pseudoseizures P rocedures Discharge Follow-up: PCP DEWAYNE ALMONTE; 2 Weeks Encounter Details Care Team Description Date Type Department Leticia Handy MD [address] [place] [phone] Mireille Peralta MD [address] [place] [phone] Interstitial cystitis (Primary Dx) 01/16/2019 Office Visit [facility] Internal Medicine- [facility] [address] [place] [phone] Allergies Comments Active Allergy Reactions Severity Noted Date Azithromycin Itching 01/07/2019 Ciprofloxacin Rash 01/27/2018 Clindamycin Other - See Medium 10/05/2016 comments, Itching Clonazepam Itching, Medium 11/23/2017 Rash, Swelling All steroids-muscle weakness t Corticosteroids Rash 01/20/2016 (Glucocorticoids) Iodine Rash 10/05/2016 Lincomycin Rash Medium 09/15/2017 Nitrofurantoin Rash 01/27/2018 steroid Other [place]-3s Anaphylaxis 01/27/2018 States it would be fatal Penicillins Other - See High 01/20/2016 comments, Shortness of Breath Sulfa (Sulfonamide Other - See 01/20/2016 Antibiotics) comments, Swelling New string of tetanus- went to ER , medication for throat closing up Tetanus Vaccines And Swelling High 01/20/2016 Toxoid documented as of this encounter (statuses as of 01/16/2019) Medications End Date Status Medication Sig Dispensed Refills Start Date Active hydrOXYzine 25 mg tablet Take 25 mg by 0 mouth every 6 (six) hours. Active cetirizine 10 mg tablet Take 10 mg by 3 mouth every 8 morning. Active LORazepam 0.5 mg tablet Take 0.5 mg 0 by mouth 8 daily. Active hydroCHLOROthiazide 25 mg Take 1 tablet 90 tablet 3 tablet by mouth 8 daily. Active omeprazole 40 mg capsule TAKE 1 3 CAPSULE BY 9 MOUTH EVERY DAY Active VITAMIN D2 50,000 unit TAKE ONE 2 capsule CAPSULE BY 9 MOUTH ONCE A WEEK Active dicyclomine 20 mg tablet 0 9 Active CBD oil (ABELARDO'S HOPE) Take by [...] tabletIndications: by mouth at 9 Pseudoseizures bedtime. Active LISINOPRIL 5 mg TAKE 1 TABLET 30 tablet 1 tabletIndications: BY MOUTH 9 Essential hypertension EVERY DAY 01/16/2019 Discontinued ALBUTEROL SULFATE Inhale. 0 (PROVENTIL INHALE) 01/16/2019 Discontinued montelukast 10 mg tablet Take 10 mg by 0 mouth. 01/16/2019 Discontinued fluticasone-salmeterol Inhale 2 0 (ADVAIR HFA) 115-21 Puffs 2 (two) 8 mcg/actuation inhaler times daily. 01/16/2019 Discontinued albuterol 90 Inhale 2 0 mcg/actuation inhaler Puffs 2 (two) times daily. 01/16/2019 Discontinued lidocaine 5 % (700 Apply 1 Patch 30 Each 2 mg/patch) to area(s) 9 patchIndications: Chronic every 12 bilateral low back pain (twelve) with right-sided hours. sciatica, Facet arthritis of lumbar region, DDD (degenerative disc disease), lumbar 01/16/2019 Discontinued famotidine 20 mg tablet Take 20 mg by 3 mouth daily. 9 01/16/2019 Discontinued estradiol (ESTRACE) 0.01 Insert 0.5 g 42.5 g 3 % (0.1 mg/gram) vaginal vaginally 9 creamIndications: with Recurrent UTI fingertip x 7 days , then x 2 week 01/16/2019 Discontinued acetaminophen-codeine Take 1 tablet 60 tablet 2 (TYLENOL-CODEINE #3) by mouth 9 300-30 mg daily. tabletIndications: Radiculopathy of thoracolumbar region 01/16/2019 Discontinued famotidine (PEPCID) 20 mg Take 1 tablet 10 tablet 0 tabletIndications: by mouth 2 9 Allergic reaction, (two) times initial encounter daily. Status Hospital, Clinic, or Ordered Dose Route Frequency Start End Date Other Facility Date Administered Medication Discontinued lactated ringers IV 1000 mL IV Infusion CONTINUOUS 01/13/20 infusion 1,000 mL 19 9 documented as of this encounter (statuses as of 01/16/2019) Active Problems Problem Noted Date Chronic lumbar radiculopathy 01/12/2019 Overview: Added automatically from request for surgery [id number] 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/12/2019 Overview: Added automatically from request for surgery [id number] Obesity (BMI 30-39.9) 12/16/2018 Psychogenic nonepileptic seizure 05/17/2018 Recurrent UTI 05/17/2018 Diarrhea, unspecified type 05/17/2018 Frequent falls documented as of this encounter (statuses as of 01/16/2019) Resolved Problems Problem Noted Date Resolved Date 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/12/2019 01/16/2019 Overview: Added automatically from request for surgery [id number] documented as of this encounter (statuses as of 01/16/2019) Immunizations Name Administration Dates Next Due Influenza [...] Signs Reading Time Taken Comments Vital Sign 128/76 01/16/2019 2:29 PM CDT Blood Pressure 92 01/16/2019 2:29 PM CDT Pulse - - Temperature 18 01/16/2019 2:29 PM CDT Respiratory Rate 94% 01/16/2019 2:29 PM CDT Oxygen Saturation - - Inhaled Oxygen Concentration 82.9 kg (182 lb 11.2 oz) 01/16/2019 2:29 PM CDT Weight 154.9 cm (5' 1") 01/16/2019 2:29 PM CDT Height 34.52 01/16/2019 2:29 PM CDT Body Mass Index documented in this encounter Patient Instructions * Patient Instructions* Leticia Handy MD - 01/16/2019 2:10 PM CDT Referral made to urogynecology Recommend to follow up with [facility] Outpatient Psychiatry You may call these numbers to schedule: Ranjan: [phone] Sudhakar: [phone] [facility]: [facility]: [facility]: [phone] documented in this encounter Progress Notes * Leticia Handy MD - 01/16/2019 2:10 PM CDT After discussion with resident, Dr. Peralta, I personally examined this pa tient on 01/16/2019 and agree with the resident's note as written. Patient has h x of nonepileptic psychogenic seizures, recurrent UTI, bipolar who presents in c linic today for flank pain the past 4 days. Describes having calcium stones in h er urine though CT abd/pelvis from 02/2018 and 09/2018 have not showed nephrolithi asis. Multiple times checked UA/urine culture in past few months which have bee n negative. Last visit with urology was on 09/01/2018. Plan to refer to Urogyn. For psychogenic seizures and bipolar, patient should be seen by psychiatry. I actively participated in the decision-making process and in formulating the plan of care. Please see the resident's note for additional details. Leticia Handy MD, MPH [facility] Internal Medicine * Dasia Nicole MA - 01/16/2019 2:10 PM CDT John Nieto is a 63 year old female seen for a follow up visit Appearance: healthy,alert,cooperative. Medications and allergies reviewed with patient by tony * Mireille Peralta MD - 01/16/2019 2:10 PM CDT Internal Medicine Clinic Note CC: HFU HPI: John Nieto is a 63 year old female with a pertinent PMH of anxiety, depr ession, non-epileptic seizures, interstitial cystitis, bipolar disorder, hyperl ipidemia, hypertension, tobacco abuse, asthma, obesity who presents to clinic wi th for routine follow up. #Flank pain Patient has had bilateral flank pain, diffuse abdominal pain, and bloating for t he past 4 days. Also endorses dysuria, increased urinary frequency. No change in smell or appearance of urine. No fever/chills. She states that she has been [place] calcium stones in her urine again and that this induces bladder spasms. Fee ls that flank pain worsens with BM and that kidneys feel swollen. 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 Episodes still occurring 15-25 times per day, same frequency as prior to hospitalization last month. notes that they are more frequent with stres s. No falls/injuries since last visit due to seizures. Seen by psychiatry during hospitalization 1 month ago and they recommended outpatient follow up, however patient has not been scheduled. states that she has an appointment with [facility] psychiatrist in January, but would like to try for an appointment at [facility]. #HTN Taking lisinopril, amlodipine, and HCTZ as prescribed. checks blood pres sures a few times per week, while patient is sitting, at least 10 minutes after seizure episode. Highest 148/68, lowest 108/56 in past few weeks. Medications: Current Outpatient Medications Medication Sig LISINOPRIL 5 mg tablet TAKE 1 TABLET BY MOUTH EVERY DAY famotidine (PEPCID) 20 mg tablet Take 1 tablet by mouth 2 (two) times daily. mirtazapine 30 mg tablet Take 1 tablet by mouth at bedtime. GABAPENTIN 400 mg capsule TAKE 1 CAPSULE BY MOUTH THREE TIMES A DAY AMLODIPINE 5 mg tablet TAKE 1 TABLET BY MOUTH EVERY DAY CBD oil (ABELARDO'S HOPE) 20:1 with safflower Take by mouth as needed (Seizu re, pain). acetaminophen-codeine (TYLENOL-CODEINE #3) 300-30 mg tablet Take 1 tablet by mouth daily. dicyclomine 20 mg tablet estradiol (ESTRACE) 0.01 % (0.1 mg/gram) vaginal cream Insert 0.5 g vaginall y with fingertip x 7 days , then x 2 week famotidine 20 mg tablet Take 20 mg by mouth daily. omeprazole 40 mg capsule TAKE 1 CAPSULE BY MOUTH EVERY DAY VITAMIN D2 50,000 unit capsule TAKE ONE CAPSULE BY MOUTH ONCE A WEEK lidocaine 5 % (700 mg/patch) patch Apply 1 Patch to area(s) every 12 (twelve ) hours. hydroCHLOROthiazide 25 mg tablet Take 1 tablet by mouth daily. albuterol 90 mcg/actuation inhaler Inhale 2 Puffs 2 (two) times daily. cetirizine 10 mg tablet Take 10 mg by mouth every morning. fluticasone-salmeterol (ADVAIR HFA) 115-21 mcg/actuation inhaler Inhale 2 Pu ffs 2 (two) times daily. LORazepam 0.5 mg tablet Take 0.5 mg by mouth daily. ALBUTEROL SULFATE (PROVENTIL INHALE) Inhale. hydrOXYzine 25 mg tablet Take 25 mg by mouth every 6 (six) hours. montelukast 10 mg tablet Take 10 mg by mouth. PMHx: Past Medical History: Diagnosis Date Depression Frequent falls Hyperlipidemia Hypertension IBS (irritable bowel syndrome) Low back pain Osteoporosis b/l hip Seizure (nonepileptic psychogenic) PSurgical Hx: Past Surgical History: Procedure Laterality Date CHOLECYSTECTOMY HYSTERECTOMY TONSILLECTOMY Family Hx: Family History Problem Relation Age of Onset Heart Mother Hypertension Mother Diabetes Father Hypertension Father Social Hx: Social History Tobacco Use Smoking status: Former Smoker Smokeless tobacco: Never Used Substance Use Topics Alcohol use: No Drug use: No ROS: Review of Systems Constitutional: Negative for activity change, fatigue and fever. HENT: Negative for congestion and sore throat. Respiratory: Negative for cough, shortness of breath and wheezing. Cardiovascular: Negative for chest pain. Gastrointestinal: Positive for abdominal pain. Negative for constipation, diarrh ea and vomiting. Genitourinary: Positive for dysuria, frequency and flank pain. Psychiatric/Behavioral: Positive for agitation. The patient is nervous/anxious. PE: There were no vitals filed for this visit. Physical Exam Constitutional: She appears distressed. HENT: Head: Normocephalic and atraumatic. Mouth/Throat: Oropharynx is clear and moist. Eyes: EOM are normal. Cardiovascular: Normal rate and regular rhythm. Pulmonary/Chest: Breath sounds normal. Abdominal: Soft. Bowel sounds are normal. There is tenderness. Patient jumps at light touch in all quadrants of abdomen and in bilateral flank Assessment / Plan: John Nieto is a 63 year old female presents to clinic today for: #Bilateral flank pain Patient has had multiple negative UA's and urine cultures in past few months and [address] abd that did not show any evidence of stones. She has been referred to urology in the past. -Refer to urogynecology #Psychogenic non-epileptic seizures Patient needs to be seen by psychiatry, especially given unclear history of bipo lar disorder. Was told to follow up with [facility] psychiatry at last admission. -Patient's given phone numbers to obtain psychiatry appointment with [facility] Torres #HTN Patient stable and well controlled. -continue on current regimen Patient was checked out to faculty: Dr. Ole Peralta MD Internal Medicine, PGY1 [facility] Team Pager#: [phone] documented in this encounter Plan of Treatment Care Team Description Date Type Specialty Chas Poon MD [address] [id number] Juanita Casas, PT 01/20/2019 Ancillary Visit Physical Therapy Sukh Harris MD [address] [phone] Chronic lumbar radiculopathy 01/23/2019 Hospital Surgery Encounter Belkys Medley, RN [address] [place] [address] 01/23/2019 Anesthesia Surgery Event Sukh Harris MD [address] [place] [address] [phone] MEDIAL BRANCH BLOCK 01/23/2019 Surgery Surgery Chas Poon MD [address] [id number] Juanita Casas, PT 01/25/2019 Ancillary Visit Physical Therapy Gerber Ni 301 [facility] [id number] [place] [address] [phone] 01/31/2019 Office Visit Obstetrics & Gynecology Dieter Zhou MD 301 [facility] [id number] [place] [address] [phone] 02/01/2019 Office Visit Pulmonary Disease RussellJuanita issa, PT 02/03/2019 Ancillary Visit Physical Therapy Sukh Harris MD 301 [facility] [id number] [place] [address] [phone] 02/09/2019 Office Visit Pain Medicine Zoila Rodas AGNP [address] [place] [address] [phone] 03/01/2019 Office Visit Nephrology Sukh Harris MD 301 [facility] [id number] [place], [place] [phone] 03/23/2019 Office Visit Pain Medicine Health Maintenance [...] filedocumented in this encounter Visit Diagnoses Diagnosis Interstitial cystitis - Primary Chronic interstitial cystitis documented in this encounter Insurance Type Payer Benefit Subscriber ID Effective Phone Address Plan / Dates Group Medicaid [employer]HC [place] xxxxxxxxx 2015-P PLAN - MANAGED MEDICAID STAR PLUS resent documented as of this encounter
--- OUTSIDE RECORDS SUMMARY | 2019-06-09 13:22 | XMS REPORT | Summary of Care ---
Author Author [facility] - Health Organization [facility] - Health Address Unknown Phone Unavailable Care Team Providers Care Pageant Director Name Role Phone Fabien Fernandes MD Unavailable Leena Bañuelos DO PCP Reason for Visit * Reason Comments Back Pain Kidney Problem Seizures Encounter Details Care Team Description Date Type Department Unknown, Attending Silvana Florian FNP [address] [place], [place] [address] Nurse, dAam Urgent Flank pain, acute (Primary Dx); Seizure disorder 01/18/2019 Nurse Visit [facility] [address] [place] [address] Allergies Comments Active Allergy Reactions Severity Noted Date Azithromycin Itching 01/07/2019 Ciprofloxacin Rash 01/27/2018 Clindamycin Other - See Medium 10/05/2016 comments, Itching Clonazepam Itching, Medium 11/23/2017 Rash, Swelling All steroids-muscle weakness t Corticosteroids Rash 01/20/2016 (Glucocorticoids) Iodine Rash 10/05/2016 Lincomycin Rash Medium 09/15/2017 Nitrofurantoin Rash 01/27/2018 steroid Other [place]-3s Anaphylaxis 01/27/2018 States it would be fatal Penicillins Other - See High 01/20/2016 comments, Shortness of Breath Sulfa (Sulfonamide Other - See 01/20/2016 Antibiotics) comments, Swelling New string of tetanus- went to ER , medication for throat closing up Tetanus Vaccines And Swelling High 01/20/2016 Toxoid documented as of this encounter (statuses as of 01/19/2019) Medications End Date Status Medication Sig Dispensed [...] mg tablet 0 9 Active CBD oil ([employer]'S HOPE) Take by 0 20:1 with safflower [...] BY MOUTH 9 Essential hypertension EVERY DAY Active acetaminophen 500 mg Take 500 mg 0 tablet by mouth. Active acetaminophen-codeine Take 1 tablet 2 300-30 mg tablet by mouth 9 daily. Active famotidine 20 mg tablet Take 20 mg by 0 mouth. 8 Active fexofenadine 180 mg Take 180 mg 0 tablet by mouth. Active KCL 20 mEq tablet TAKE 2 0 TABLETS BY 9 MOUTH NOW FOR 1 DOSE Active SERTraline 100 mg tablet Take 100 mg 0 by mouth. Active metFORMIN 1,000 mg tablet Take 1,000 mg 0 by mouth. Active montelukast 10 mg tablet Take 10 mg by 0 mouth. 8 Active PARoxetine 20 mg tablet Take 20 mg by 0 mouth. documented as of this encounter (statuses as of 01/19/2019) Active Problems Problem Noted Date Chronic lumbar radiculopathy 01/12/2019 Overview: Added automatically from request for surgery [id number] 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/12/2019 Overview: Added automatically from request for surgery [id number] Obesity (BMI 30-39.9) 12/16/2018 Recurrent UTI 05/17/2018 Diarrhea, unspecified type 05/17/2018 Left sided numbness 01/20/2018 Altered gait 11/30/2017 Precordial pain 11/30/2017 Urinary tract infection without hematuria 11/25/2017 Psychogenic nonepileptic seizure 03/18/2016 Seizure 03/16/2016 Acute stress reaction 03/08/2016 Essential hypertension 03/08/2016 GERD (gastroesophageal reflux disease) 03/08/2016 History of asthma 03/08/2016 History of depression 03/08/2016 Hypokalemia 03/08/2016 Episodic altered awareness 02/19/2016 Frequent falls documented as of this encounter (statuses as of 01/19/2019) Resolved Problems Problem Noted Date Resolved Date 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/12/2019 01/16/2019 Overview: Added automatically from request for surgery [id number] documented as of this encounter (statuses as of 01/19/2019) Immunizations Name Administration Dates Next Due Influenza [...] Signs Reading Time Taken Comments Vital Sign 146/73 01/18/2019 4:04 PM CDT Blood Pressure 90 01/18/2019 4:04 PM CDT Pulse 36.9 C (98.5 F) 01/18/2019 4:04 PM CDT Temperature 26 01/18/2019 4:04 PM CDT Respiratory Rate 97% 01/18/2019 4:04 PM CDT Oxygen Saturation - - Inhaled Oxygen Concentration - - Weight - - Height - - Body Mass Index documented in this encounter Progress Notes * Tirso Hammond, RN - 01/18/2019 3:30 PM CDT 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 She has a hx of seizure disorder and had mult iple seizures during the rooming process. Pt unable to communicate. NICOLE Redd, called into room and ordered 3L O2 via nasal cannula which patient betty ated. EMS called and arrived on scene. Report given. Pt transferred to [facility]. Janneth Hammond RN documented in this encounter Plan of Treatment Care Team Description Date Type Specialty Sukh Harris MD [address] [id number] Chronic lumbar radiculopathy 01/23/2019 Hospital Surgery Encounter Belkys Medley RN [address] [place] [address] 01/23/2019 Anesthesia Surgery Event Sukh Harris MD [address] [place] [address] [phone] MEDIAL BRANCH BLOCK 01/23/2019 Surgery Surgery Chas Poon MD [address] [place] [id number] [place] [phone] Juanita Casas, PT 01/25/2019 Ancillary Visit Physical Therapy Gerber Ni [address] [place] [id number] [place] [address] [phone] 01/31/2019 Office Visit Obstetrics & Gynecology Dieter Zhou MD 301 [facility] [id number] [place] [address] [phone] 02/01/2019 Office Visit Pulmonary Disease Juanita Casas, PT 02/03/2019 Ancillary Visit Physical Therapy Sukh Harris MD [address] [id number] 02/09/2019 Office Visit Pain Medicine Zoila Rodas AGNP [address] [place] [address] [phone] 03/01/2019 Office Visit Nephrology Sukh Harris MD [address] [id number] [place] [address] [phone] 03/23/2019 Office Visit Pain Medicine Health Maintenance [...] filedocumented in this encounter Visit Diagnoses Diagnosis Flank pain, acute - Primary Abdominal pain, unspecified site Seizure disorder Unspecified epilepsy without mention of intractable epilepsy documented in this encounter Insurance Type Payer Benefit Subscriber ID Effective Phone Address Plan / Dates Group Medicaid [employer] [place] xxxxxxxxx 2015-P PLAN - MANAGED MEDICAID STAR PLUS resent documented as of this encounter
--- OUTSIDE RECORDS SUMMARY | 2019-06-09 13:22 | XMS REPORT | Summary of Care ---
Author Author [facility] - Health Organization [facility] - Health Address Unknown Phone Unavailable Care Team Providers Care Special Education Curriculum Specialist Name Role Phone Fabien Fernandes MD Unavailable Leena Bañuelosynh PCP Reason for Referral * Radiology Services (STAT) Referred By Contact Referred To Contact Status Reason Specialty Diagnoses / Procedures Adebayo Parker MD [address] [address] New Request Diagnostic Diagnoses Radiology Dysuria P rocedures XR KUB * Radiology Services (STAT) Referred By Contact Referred To Contact Status Reason Specialty Diagnoses / Procedures Adebayo Parker MD [address] [address] New Request Diagnostic Diagnoses Radiology Dysuria P rocedures XR KUB Reason for Visit * Reason Comments Seizures Back Pain * Auth/Cert Referred By Contact Referred To Contact Status Reason Specialty Diagnoses / Procedures [facility] Emergency Dept [address] [place] [phone] Emergency Medicine Encounter Details Care Team Description Date Type Department Adebayo Parker MD [address] [address] Dysuria (Primary Dx); History of pseudoseizure 01/18/2019 Emergency [facility] [address] [place] [phone] Allergies Comments Active Allergy Reactions Severity Noted Date Azithromycin Itching 01/07/2019 Ciprofloxacin Rash 01/27/2018 Clindamycin Other - See Medium 10/05/2016 comments, Itching Clonazepam Itching, Medium 11/23/2017 Rash, Swelling All steroids-muscle weakness t Corticosteroids Rash 01/20/2016 (Glucocorticoids) Iodine Rash 10/05/2016 Lincomycin Rash Medium 09/15/2017 Nitrofurantoin Rash 01/27/2018 steroid Other [place]-3s Anaphylaxis 01/27/2018 States it would be fatal Penicillins Other - See High 01/20/2016 comments, Shortness of Breath Sulfa (Sulfonamide Other - See 01/20/2016 Antibiotics) comments, Swelling New string of tetanus- went to ER , medication for throat closing up Tetanus Vaccines And Swelling High 01/20/2016 Toxoid documented as of this encounter (statuses as of 01/18/2019) Medications End Date Status Medication Sig Dispensed [...] tablet Take 20 mg by 0 mouth. 01/25/2019 Active cephALEXin 500 mg Take 1 14 capsule 0 capsuleIndications: capsule by 9 Dysuria mouth 2 (two) times daily for 7 days. Active phenazopyridine 200 mg Take 1 tablet 9 tablet 0 tabletIndications: by mouth 3 9 Dysuria (three) times daily. documented as of this encounter (statuses as of 01/18/2019) Active Problems Problem Noted Date Chronic lumbar radiculopathy 01/12/2019 Overview: Added automatically from request for surgery [id number] 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/12/2019 Overview: Added automatically from request for surgery [id number] Obesity (BMI 30-39.9) 12/16/2018 Recurrent UTI 05/17/2018 [...] as of this encounter (statuses as of 01/18/2019) Resolved Problems Problem Noted Date Resolved Date 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/12/2019 01/16/2019 Overview: Added automatically from request for surgery [id number] documented as of this encounter (statuses as of 01/18/2019) Immunizations Name Administration Dates Next Due Influenza [...] Signs Reading Time Taken Comments Vital Sign 102/53 01/18/2019 7:10 PM CDT Blood Pressure 58 01/18/2019 7:10 PM CDT Pulse 37 C (98.6 F) 01/18/2019 4:11 PM CDT Temperature 17 01/18/2019 7:10 PM CDT Respiratory Rate 100% 01/18/2019 7:10 PM CDT Oxygen Saturation - - Inhaled Oxygen Concentration 82.6 kg (182 lb) 01/18/2019 4:11 PM CDT Weight - - Height 34.39 01/16/2019 2:29 PM CDT Body Mass Index documented in this encounter Discharge Instructions * Instructions* Adebayo Parker MD - 01/18/2019 DIAGNOSIS 1. DYSURIA / URINARY TRACT INFECTION 2. NON-EPILEPTIC / PSEUDOSEIZURE WITHOUT CRITICAL EXAM FINDINGS NO LIFE-THREATENING FINDINGS ON TODAY'S EXAM. PROCEDURES IN THE ER TODAY: NONE MEDICATIONS ADMINISTERED IN THE ER TODAY: MORPHINE YOUR PRESCRIPTIONS AND [id number] MEDICATION RECOMMENDATIONS: RECOMMEND KEFLEX PRESCRIBED UNTIL ALL GONE RECOMMEND PYRIDIUM PRESCRIBED FOR DYSURIA (PAINFUL URINATION) CONTINUE YOUR HOME MEDICATIONS PRESCRIBED SPECIAL CARE INSTRUCTIONS: NONE FOLLOW-UP RECOMMENDATIONS: RECOMMEND FOLLOW-UP WITH A PRIMARY CARE PROVIDER IN A WEEK, ESPECIALLY IF NO IMP ROVEMENT IN SYMPTOMS. KEEP YOUR REFERRAL APPOINTMENT WITH UROGYNECOLOGY TO FOLLOW-UP WITHIN THE [facility], TRY THESE OPTIONS (CLINIC APPOIN TMENTS AVAILABLE ON [id number] BASIS): 1. SCHEDULE AN APPOINTMENT ONLINE AT WWW.[facility] 2. OR CALL THE [facility] ACCESS CENTER AT OR 3. OR CALL YOUR [facility] PHYSICIAN'S OFFICE DIRECTLY IF YOU ARE ALREADY AN ESTABLISH ED [facility] PATIENT. MAY FOLLOW-UP WITH A PROVIDER OF YOUR CHOICE, SUCH : 1. A PHYSICIAN OF YOUR CHOICE 2. [facility], . LOCATIONS IN [facility] 3. [facility], [address] [facility], [place], [place], [place]; [phone] RETURN TO ER FOR WORSENING OF SYMPTOMS. * Attachments The following attachments cannot be sent through Care Everywhere.* Dysuria (Filipino) * Urinary Tract Infections in Women (Filipino) * Cephalexin tablets or capsules (Filipino) * Phenazopyridine tablets (Filipino) documented in this encounter Plan of Treatment Care Team Description Date Type Specialty Chas Poon MD [address] [phone] Juanita Casas, PT 01/20/2019 Ancillary Visit Physical Therapy Sukh Harris MD [address] [phone] Chronic lumbar radiculopathy 01/23/2019 Hospital Surgery Encounter Belkys Medley, RN 301 [place] [address] 01/23/2019 Anesthesia Surgery Event Sukh Harris MD [address] [phone] MEDIAL BRANCH BLOCK 01/23/2019 Surgery Surgery Chas Poon MD [address] 6[address] Juanita Casas, PT 01/25/2019 Ancillary Visit Physical Therapy Gerber Ni 301 [facility] [id number] [place] [phone] 01/31/2019 Office Visit Obstetrics & Gynecology Dieter Zhou MD 301 [facility] [id number] [place], [place] [address] 02/01/2019 Office Visit Pulmonary Disease Juanita Casas, PT 02/03/2019 Ancillary Visit Physical Therapy Sukh Harris MD 301 [facility] [id number] [place] [address] 857755 02/09/2019 Office Visit Pain Medicine Zoila Rodas AGNP [address] [place] [address] [phone] 03/01/2019 Office Visit Nephrology Sukh Harris MD [address] [place] [phone] 03/23/2019 Office Visit Pain Medicine Health Maintenance [...] this topic documented as of this encounter Procedures Comments Procedure Name Priority Date/Time Associated Diagnosis XR KUB STAT 01/18/2019 Dysuria 6:04 PM CDT CBC WITH DIFFERENTIAL STAT 01/18/2019 Dysuria 5:30 PM CDT URINALYSIS STAT 01/18/2019 Dysuria 5:30 PM CDT CBC WITH DIFF Routine 01/18/2019 Dysuria 5:30 PM CDT BASIC METABOLIC PANEL STAT 01/18/2019 Dysuria (NA, K, CL, CO2, GLUCOSE, 5:30 PM CDT BUN, CREATININE, CA) HEPATIC FUNCTION PANEL STAT 01/18/2019 Dysuria (51049) (ALB,T.PRO,BILI 5:30 PM CDT T,BU/BC,ALT,AST,ALK PHOS) LIPASE STAT 01/18/2019 Dysuria 5:30 PM CDT documented in this encounter Results * XR KUB (01/18/2019 6:04 PM CDT) Specimen Impressions Performed At Findings/impression: PACS/VR/DOSE The bowel gas pattern is nonobstructive. No radiopaque stone or mass detected. Boubacar Sam MD., have reviewed this study and agree with the above report. Narrative Performed At XR KUB PACS/VR/DOSE Comparison: None available History: abdominal distention Procedure Note [facility], Radiant Results Inft User - 01/18/2019 6:20 PM CDT XR KUB Comparison: None available History: abdominal distention IMPRESSION Findings/impression: The bowel gas pattern is nonobstructive. No radiopaque stone or mass detected. Iqra Sam MD., have reviewed this study and agree with the above report. Performing Organization Address City/State/Zipcode Phone Number PACS/VR/DOSE * CBC WITH DIFFERENTIAL (01/18/2019 5:30 PM CDT) WBC 5.69 4.30 - 11.10 [facility] 10*3/L [facility] RBC 4.81 3.93 - 5.25 10*6/L [facility] HGB 13.5 11.6 - 15.0 g/dL [facility] HCT 40.6 35.7 - 45.2 % [facility] MCV 84.4 80.6 - 95.5 fL [facility] MCH 28.1 25.9 - 32.8 pg [facility] MCHC 33.3 31.6 - 35.1 g/dL [facility] RDW-SD 43.9 39.0 - 49.9 fL [facility] RDW-CV 14.3 12.0 - 15.5 % [facility] PLT 186 166 - 358 10*3/L [facility] MPV 11.1 9.5 - 12.9 fL [facility] NRBC/100 WBC 0.0 0.0 - 10.0 /100 WBCs [facility] NRBC x10^3 <0.01 10*3/L [facility] GRAN MAT (NEUT) 54.9 % [facility] % [facility] IMM GRAN % 0.40 % [facility] LYMPH % 33.7 % [facility] MONO % 10.5 % [facility] EOS % 0.0 % [facility] BASO % 0.5 % [facility] GRAN MAT 3.12 1.88 - 7.09 10*3/uL [facility] x10^3(ANC) [facility] IMM GRAN x10^3 <0.03 0.00 - 0.06 10*3/uL [facility] LYMPH x10^3 1.92 1.32 - 3.29 10*3/uL [facility] MONO x10^3 0.60 0.33 - 0.92 10*3/uL [facility] EOS x10^3 <0.03 (L) 0.03 - 0.39 10*3/uL [facility] BASO x10^3 0.03 0.01 - 0.07 10*3/uL [facility] Specimen Blood - VENOUS Performing Organization Address City/[facility]/Zipcode Phone Number [facility] CLIA: [id number], [address] [place], [place] [address] [facility] * Lipase Serum (01/18/2019 5:30 PM CDT) LIPASE 146 0 - 220 U/L [facility] Specimen Blood - VENOUS Performing Organization Address City/[facility]/Zipcode Phone Number [facility] CLIA: [id number], [address] [place], [place] [address] [facility] * Hepatic Function Panel (ALB, T.PRO, BILI T, BU/BC, ALT, AST, ALK PHOS) (01/18/2019 5:30 PM CDT) Pathologist [facility] TOTAL BILI 0.4 0.1 - 1.1 mg/dL [facility] BILI UNCON 0.2 0.1 - 1.1 mg/dL [facility] BILI CONJ 0.0 0.0 - 0.3 mg/dL [facility] T PROTEIN 7.1 6.3 - 8.2 g/dL [facility] ALBUMIN 4.5 3.5 - 5.0 g/dL [facility] ALK PHOS 70 34 - 122 U/L [facility] ALT(SGPT) 38 9 - 51 U/L [facility] AST(SGOT) 32 13 - 40 U/L [facility] Specimen Blood - VENOUS Performing Organization Address City/[facility]/Zipcode Phone Number [facility] CLIA: [id number], [address] [place], [place] [address] [facility] * Basic Metabolic Panel (NA, K, CL, CO2, GLUCOSE, BUN, CREATININE, CA) (01/18/2019 5:30 PM CDT) [facility] NA 142 135 - 145 mmol/L [facility] K 3.5 3.5 - 5.0 mmol/L [facility] CL 104 98 - 108 mmol/L [facility] CO2 TOTAL 29 23 - 31 mmol/L [facility] AGAP 9 2 - 16 [facility] BUN 15 7 - 23 mg/dL [facility] GLUCOSE 95 70 - 110 mg/dL [facility] CREATININE 0.66 0.50 - 1.04 mg/dL [facility] CALCIUM 9.7 8.6 - 10.6 mg/dL [facility] eGFR 90.7 mL/min/1.73m2 [facility] Calculation SERVICES-[facility] (Non-[facility]) eGFR 110.0 mL/min/1.73m2 [facility] Calculation [facility] ([facility]) Specimen Blood - VENOUS Narrative Performed At [facility] of Glomerular Filtration Rate (GFR) and Staging of Kidney Disease* [facility] + + + + [facility] | GFR (mL/min/1.73 m2)| With Kidney Damage|Without Kidney Damage CAMPUS + + + + |>90|Stage one| Normal + + + + |60-89|Stage two| Decreased GFR + + + + |30-59|Stage three| Stage three + + + + |15-29|Stage four | Stage four + + + + |<15 (or dialysis)|Stage five | Stage five + + + + *Each stage assumes the associated GFR level has been in effect for at least three months.Stages 1 to 5, with or without kidney disease, indicate chronic kidney disease. Notes: Determination of stages one and two (with eGFR >59mL/min/1.73 m2) requires estimation of kidney damage for at least three months as defined by structural or functional abnormalities of the kidney, manifested by either: Pathological abnormalities or Markers of kidney damage (including abnormalities in the composition of the blood or urine or abnormalities in imaging tests). Performing Organization Address City/State/Zipcode Phone Number [facility] CLIA: [id number], [address] [place] [address] [facility] * Urinalysis (01/18/2019 5:30 PM CDT) APPEARANCE Hazy (A) Clear [facility] COLOR Yellow Yellow [facility] PH 7.0 4.8 - 8.0 [facility] SP GRAVITY 1.014 1.003 - 1.030 [facility] GLU U QUAL Normal Normal [facility] BLOOD Negative Negative [facility] KETONES Negative Negative [facility] PROTEIN Negative Negative [facility] UROBILIN Normal Normal [facility] BILIRUBIN Negative Negative [facility] NITRITE Negative Negative [facility] LEUK MICHAEL 500/uL (A) Negative [facility] RBC/HPF 10 (H) 0 - 3 HPF [facility] WBC/HPF 19 (H) 0 - 5 HPF [facility] BACTERIA Moderate (A) Negative [facility] MUCOUS Slight (A) Negative LPF [facility] SQ EPITH 6 (H) <=2 HPF [facility] TRANS EPI 3 (H) <=1 HPF [facility] Specimen Urine - URINE, CLEAN CATCH Performing Organization Address City/State/Zipcode Phone Number [facility] CLIA: [id number], [address] [place] [address] [facility] documented in this encounter Visit Diagnoses Diagnosis Dysuria - Primary History of pseudoseizure documented in this encounter Administered Medications Action Date Dose Rate Site Medication Order MAR Action 01/18/2019 5:31 PM CDT 4 mg morpHINE injection 4 mg Given 4 mg, Slow IV Push, ONCE, 1 dose, Wed01/18/19 at 1830, STAT documented in this encounter Insurance Type Payer Benefit Subscriber ID Effective Phone Address Plan / Dates Group Medicaid [facility] xxxxxxxxx 2015-P PLAN - MANAGED MEDICAID STAR PLUS resent (Home) [place] [address] documented as of this encounter"
--- OUTSIDE RECORDS SUMMARY | 2019-06-09 13:22 | XMS REPORT | Summary of Care ---
Author Author [facility] - Health Organization [facility] - Health Address Unknown Phone Unavailable Care Team Providers Care Quartz Orientator Name Role Phone Fabien Fernandes MD Unavailable Leena Bañuelos DO PCP Reason for Visit * Reason Comments Results Encounter Details Care Team Description Date Type Department Leena Bañuelos DO [address] [place] [address] [place] [address] Results 12/29/2018 Telephone [facility] Internal Medicine- [facility] [address] [place] [address] Allergies Comments Active Allergy Reactions Severity Noted Date Azithromycin Itching 01/07/2019 Ciprofloxacin Rash 01/27/2018 Clindamycin Other - See Medium 10/05/2016 comments, Itching Clonazepam Itching, Medium 11/23/2017 Rash, Swelling All steroids-muscle weakness t Corticosteroids Rash 01/20/2016 (Glucocorticoids) Iodine Rash 10/05/2016 Lincomycin Rash Medium 09/15/2017 Nitrofurantoin Rash 01/27/2018 steroid Other [place]-3s Anaphylaxis 01/27/2018 States it would be fatal [...] tabletIndications: by mouth at 9 Pseudoseizures bedtime. documented as of this encounter (statuses as of 01/18/2019) Active Problems Problem Noted Date Chronic lumbar radiculopathy 01/12/2019 Overview: Added automatically from request for surgery [id number] 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/12/2019 Overview: Added automatically from request for surgery [id number] Obesity (BMI 30-39.9) 12/16/2018 Psychogenic nonepileptic seizure 05/17/2018 Recurrent UTI 05/17/2018 Diarrhea, unspecified type 05/17/2018 Frequent falls documented as of this encounter (statuses as of 01/18/2019) Resolved Problems Problem Noted Date Resolved Date 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/12/2019 01/16/2019 Overview: Added automatically from request for surgery [id number] documented as of this encounter (statuses as [...] of this encounter Last Filed Vital Signs Not on filedocumented in this encounter Plan of Treatment Care Team Description Date Type Specialty Chas Poon MD [address] [phone] Juanita Casas, PT 01/20/2019 Ancillary Visit Physical Therapy Sukh Harris MD [address] [phone] Chronic lumbar radiculopathy 01/23/2019 Hospital Surgery Encounter Belkys Medley RN 301 [place] [address] 01/23/2019 Anesthesia Surgery Event Sukh Harris MD [address] [id number] MEDIAL BRANCH BLOCK 01/23/2019 Surgery Surgery Chas Poon MD [address] [id number] Juanita Casas, PT 01/25/2019 Ancillary Visit Physical Therapy Gerber Ni [address] [id number] 01/31/2019 Office Visit Obstetrics & Gynecology Dieter Zhou MD 301 [facility] [id number] [place] [address] 609[address] 02/01/2019 Office Visit Pulmonary Disease Juanita Casas, PT 02/03/2019 Ancillary Visit Physical Therapy Sukh Harris MD [address] 697805 02/09/2019 Office Visit Pain Medicine oZila Rodas AGNP 301 [place], [place] [id number] 03/01/2019 Office Visit Nephrology Sukh Harris MD [id number] [place] [address] [phone] 03/23/2019 Office Visit Pain Medicine Health Maintenance [...] Results Not on filedocumented in this encounter Insurance Type Payer Benefit Subscriber ID Effective Phone Address Plan / Dates Group Medicaid [facility] xxxxxxxxx 2015-P PLAN - MANAGED MEDICAID STAR PLUS resent documented as of this encounter
--- OUTSIDE RECORDS SUMMARY | 2019-06-09 13:22 | XMS REPORT | Summary of Care ---
Author Author [facility] - Health Organization [facility] - Health Address Unknown Phone Unavailable Care Team Providers Care Beauty Sales Consultant Name Role Phone Fabien Fernandes MD Unavailable Leena Bañuelosynpatricia MURILLO PCP Reason for Visit * Reason Comments Pain Encounter Details Care Team Description Date Type Department Sukh Harris MD [id number] [place] [address] Spondylosis of lumbar region without myelopathy or radiculopathy (Primary Dx); Chronic lumbar radiculopathy 01/12/2019 Office Visit [facility] Pain Management - [address], [address] [place] [address] Allergies Comments Active Allergy Reactions Severity Noted Date Azithromycin Itching 01/07/2019 Ciprofloxacin Rash 01/27/2018 Clindamycin Other - See Medium 10/05/2016 comments, Itching Clonazepam Itching, Medium 11/23/2017 Rash, Swelling All steroids-muscle weakness t Corticosteroids Rash 01/20/2016 (Glucocorticoids) Iodine Rash 10/05/2016 Lincomycin Rash Medium 09/15/2017 Nitrofurantoin Rash 01/27/2018 steroid Other [place]-3s Anaphylaxis 01/27/2018 States it would be fatal [...] BY MOUTH 9 Essential hypertension EVERY DAY Status Hospital, Clinic, or Ordered Dose Route Frequency Start End Date Other Facility Date Administered Medication Active lactated ringers IV 1000 mL IV Infusion CONTINUOUS 01/13/20 infusion 1,000 mL 19 documented as of this encounter (statuses as [...] Description Date Type Specialty Chas Poon MD [address] [place] [id number] [place] [id number] Juanita Casas, PT 01/20/2019 Ancillary Visit Physical Therapy Chas Poon MD [address] [place] [id number] [place] [address] [id number] Juanita Casas, PT 01/25/2019 Ancillary Visit Physical Therapy Cassandra Pierre MD [address] [place] [address]. [place] [phone] 01/30/2019 Office Visit Internal Medicine Dieter Zhou MD [address] [place] [id number] [place] [address] [phone] 02/01/2019 Office Visit Pulmonary Disease Juanita Casas, PT 02/03/2019 Ancillary Visit Physical Therapy Sukh Harris MD [address] [address] [phone] 02/09/2019 Office Visit Pain Medicine Zoila Rodas AGNP [address] [place] [address] [phone] 03/01/2019 Office Visit Nephrology Sukh Harris MD [address] [address] [phone] 03/23/2019 Office Visit Pain Medicine Health Maintenance [...]
--- OUTSIDE RECORDS SUMMARY | 2019-06-09 13:22 | XMS REPORT | Summary of Care ---
Author Author [facility] - Health Organization [facility] - Health Address Unknown Phone Unavailable Care Team Providers Care Display Mechanic Name Role Phone Fabien Fernandes MD Unavailable Dewayne Almonte DO PCP Reason for Referral * (Routine) Referred By Contact Referred To Contact Status Reason Specialty Diagnoses / Procedures Leticia Handy MD [address] [place] [phone] New Request Obstetrics & Diagnoses Gynecology Interstitial cystitis P rocedures CONSULT/REFERRAL UROGYN UroGyn Reason for Visit * Reason Comments Follow-up * (Routine) Referred By Contact Referred To Contact Status Reason Specialty Diagnoses / Procedures De Sherman, NICOLE [address] [place] [address] Dewayne Almonte DO [address] [address] New Request Internal Diagnoses Medicine Pseudoseizures P rocedures Discharge Follow-up: PCP DEWAYNE ALMONTE; 2 Weeks Encounter Details Care Team Description Date Type Department Leticia Handy MD [address] [place] [phone] Mireille Peralta MD [address] [place] [phone] Interstitial cystitis (Primary Dx) 01/16/2019 Office Visit [facility] Internal Medicine- [facility]ty C[facility] [address] [place] [phone] Allergies Comments Active Allergy Reactions Severity Noted Date Azithromycin Itching 01/07/2019 Ciprofloxacin Rash 01/27/2018 Clindamycin Other - See Medium 10/05/2016 comments, Itching Clonazepam Itching, Medium 11/23/2017 Rash, Swelling All steroids-muscle weakness t Corticosteroids Rash 01/20/2016 (Glucocorticoids) Iodine Rash 10/05/2016 Lincomycin Rash Medium 09/15/2017 Nitrofurantoin Rash 01/27/2018 steroid Other [place]-3s Anaphylaxis 01/27/2018 States it would be fatal [...] Overview: Added automatically from request for surgery [id number] 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/12/2019 Overview: Added automatically from request for surgery [id number] Obesity (BMI 30-39.9) 12/16/2018 Psychogenic nonepileptic seizure 05/17/2018 Recurrent UTI 05/17/2018 Diarrhea, unspecified type 05/17/2018 Frequent falls documented as of this encounter (statuses as of 01/16/2019) Resolved Problems Problem Noted Date Resolved Date 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/12/2019 01/16/2019 Overview: Added automatically from request for surgery [id number] documented as of this encounter (statuses as [...] to urogynecology Recommend to follow up with [facility] Outpatient Psychiatry You may call these numbers to schedule: Ranjan: [phone] Sudhakar: [phone] [facility]: [facility]: [facility]: [phone] documented in this encounter Progress Notes * [...] for additional details. Leticia Handy MD, MPH [facility] Internal Medicine * Dasia Nicole [...] feel swollen. #Psychogenic non-epileptic seizures Per patient healthcare associate, patient had pseudoseizure episode in clinic while [...] states that she has an appointment with [facility] psychiatrist in January, but would like to try for an appointment at [facility]. #HTN Taking lisinopril, amlodipine, and [...] disorder. Was told to follow up with [facility] psychiatry at last admission. -Patient's given phone numbers to obtain psychiatry appointment with [facility] Torres #HTN Patient stable and well controlled. -continue on current regimen Patient was checked out to faculty: Dr. Ole Peralta MD Internal Medicine, PGY1 [facility] Team Pager#: [phone] documented in this encounter Plan of Treatment Care Team Description Date Type Specialty Chas Poon MD [address] [phone] Juanita Casas, PT 01/20/2019 Ancillary Visit Physical Therapy Sukh Harris MD [address] [phone] Chronic lumbar radiculopathy 01/23/2019 Hospital Surgery Encounter Belkys Medley, RN 301 [place] [address] 01/23/2019 Anesthesia Surgery Event Sukh Harris MD [address] [place] [address] [phone] MEDIAL BRANCH BLOCK 01/23/2019 Surgery Surgery Chas Poon MD [address] 612735 Juanita Casas, PT 01/25/2019 Ancillary Visit Physical Therapy Gerber Ni 301 [facility] [id number] [place] [address] [phone] 01/31/2019 Office Visit Obstetrics & Gynecology Dieter Zhou MD 301 [facility] [id number] [place] [address] 339235 02/01/2019 Office Visit Pulmonary Disease VigoJuanita issa, PT 02/03/2019 Ancillary Visit Physical Therapy Sukh Harris MD 301 [facility] [id number] [place] [address] 225855 02/09/2019 Office Visit Pain Medicine Zoila Rodas AGNP [address] [place] [address] [phone] 03/01/2019 Office Visit Nephrology Sukh Harris MD 301 [facility] [id number] [place], [place] 540745 03/23/2019 Office Visit Pain Medicine Health Maintenance [...]
--- OUTSIDE RECORDS SUMMARY | 2019-06-09 13:23 | XMS REPORT | Summary of Care ---
Author Author [facility] - Health Organization [facility] - Health Address Unknown Phone Unavailable Care Team Providers Care Production Hand Name Role Phone Fabien Fernandes MD Unavailable Dewayne Almonte DO PCP Reason for Referral * (Routine) Referred By Contact Referred To Contact Status Reason Specialty Diagnoses / Procedures Leticia Handy MD [address] [place] [phone] New Request Obstetrics & Diagnoses Gynecology Interstitial cystitis P rocedures CONSULT/REFERRAL UROGYN UroGyn Reason for Visit * Reason Comments Follow-up * (Routine) Referred By Contact Referred To Contact Status Reason Specialty Diagnoses / Procedures De Sherman, NICOLE [address] [place] [address] Dewayne Almonte DO [address] [address] New Request Internal Diagnoses Medicine Pseudoseizures P rocedures Discharge Follow-up: PCP DEWAYNE ALMONTE; 2 Weeks Encounter Details Care Team Description Date Type Department Leticia Handy MD [address] [place] [phone] Mireille Peralta MD [address] [place] [phone] Interstitial cystitis (Primary Dx) 01/16/2019 Office Visit [facility] Internal Medicine- Multispecialty Ctr [address] [place] [phone] Allergies Comments Active Allergy Reactions Severity Noted Date Azithromycin Itching 01/07/2019 Ciprofloxacin Rash 01/27/2018 Clindamycin Other - See Medium 10/05/2016 comments, Itching Clonazepam Itching, Medium 11/23/2017 Rash, Swelling All steroids-muscle weakness t Corticosteroids Rash 01/20/2016 (Glucocorticoids) Iodine Rash 10/05/2016 Lincomycin Rash Medium 09/15/2017 Nitrofurantoin Rash 01/27/2018 steroid Other [place]-3s Anaphylaxis 01/27/2018 States it would be fatal Penicillins Other - See High 01/20/2016 comments, Shortness of Breath Sulfa (Sulfonamide Other - See 01/20/2016 Antibiotics) comments, Swelling New string of tetanus- went to ER , medication for throat closing up Tetanus Vaccines And Swelling High 01/20/2016 Toxoid documented as of this encounter (statuses as of 01/20/2019) Medications End Date Status Medication Sig Dispensed [...] as of this encounter (statuses as of 01/20/2019) Active Problems Problem Noted Date Chronic lumbar radiculopathy 01/12/2019 Overview: Added automatically from request for surgery [id number] 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/12/2019 Overview: Added automatically from request for surgery [id number] Obesity (BMI 30-39.9) 12/16/2018 Recurrent UTI 05/17/2018 [...] as of this encounter (statuses as of 01/20/2019) Resolved Problems Problem Noted Date Resolved Date 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/12/2019 01/16/2019 Overview: Added automatically from request for surgery [id number] documented as of this encounter (statuses as of 01/20/2019) Immunizations Name Administration Dates Next Due Influenza [...] to urogynecology Recommend to follow up with [facility] Outpatient Psychiatry You may call these numbers to schedule: Ranjan: [phone] Sudhakar: [phone] [facility] ER: [facility]: [facility]: [phone] documented in this encounter Progress Notes * Leticia Handy MD - 01/16/2019 2:10 PM CDT After discussion with resident, Dr. Peralta, I personally examined this pa tient on 01/16/2019 and agree with the resident's note as written with following exception: CC: f/u flank pain. Patient has hx of nonepileptic psychogenic seizures, recurrent UTI, bipolar who presents in clinic today for flank pain the past 4 days. Describes having calciu m stones in her urine though CT abd/pelvis from 02/2018 and 09/2018 have not showe d nephrolithiasis. Multiple times checked UA/urine culture in past few months w hich have been negative. Last visit with urology was on 09/01/2018. Plan to ref er to Urogyn. For psychogenic seizures and bipolar, advised for patient to f/u with psychiatry. I actively participated in the decision-making process and in formulating the pl an of care. Please see the resident's note for additional details. Leticia Handy MD, MPH [facility] Internal Medicine * Dasia Nicole MA [...] feel swollen. #Psychogenic non-epileptic seizures Per patient child care leader, patient had pseudoseizure episode in clinic while [...] states that she has an appointment with [facility] psychiatrist in January, but would like to try for an appointment at [facility]. #HTN Taking lisinopril, amlodipine, and HCTZ [...] disorder. Was told to follow up with [facility] psychiatry at last admission. -Patient's given phone numbers to obtain psychiatry appointment with [facility] #HTN Patient stable and well controlled. -continue on current regimen Patient was checked out to faculty: Dr. Ole Peralta MD Internal Medicine, PGY1 [facility] Team Pager#: [phone] documented in this encounter Plan of Treatment Care Team Description Date Type Specialty Sukh Harris MD [address] [place] [address] [id number] Chronic lumbar radiculopathy 01/23/2019 Hospital Surgery Encounter Belkys Medley RN 301 [place] [address] 01/23/2019 Anesthesia Surgery Event Sukh Harris MD [address] [phone] MEDIAL BRANCH BLOCK 01/23/2019 Surgery Surgery Chas Poon MD 301 [facility] [id number] [place] [address]695 Juanita Casas, MURIEL 01/25/2019 Ancillary Visit Physical Therapy Gerber Ni 301 [facility] [id number] [place], [place] [address] 01/31/2019 Office Visit Obstetrics & Gynecology Dieter Zhou MD 301 [facility] [id number] [place], [place] [phone] 02/01/2019 Office Visit Pulmonary Disease Juanita Casas, PT 02/03/2019 Ancillary Visit Physical Therapy Sukh Harris MD 301 [facility] [id number] [place] [address] [phone] 02/09/2019 Office Visit Pain Medicine Zoila Rodas AGNP [address] [place] [address] [phone] 03/01/2019 Office Visit Nephrology Sukh Harris MD [address] [phone] 03/23/2019 Office Visit Pain Medicine Health Maintenance [...] Phone Address Plan / Dates Group Medicaid [facility] xxxxxxxxx 2015-P PLAN - MANAGED MEDICAID STAR PLUS resent documented as of this encounter
--- OUTSIDE RECORDS SUMMARY | 2019-06-09 13:23 | XMS REPORT | Summary of Care ---
Author Author [facility] - Health Organization [facility] Address Unknown Phone Unavailable Care Team Providers Care Customer Assistance Representative Name Role Phone Fabien Fernandes MD Unavailable Leena Bañuelosynpatricia MURILLO PCP Reason for Visit * Reason Comments Assessment Back Pain Encounter Details Care Team Description Date Type Department Sukh Harris MD [address] [id number] [place] [address] Assessment; Back Pain 01/23/2019 Telephone [facility] Anesthesia [facility] [address] [place] [phone] Allergies Comments Active Allergy Reactions Severity Noted Date Azithromycin Itching 01/07/2019 Ciprofloxacin Rash 01/27/2018 Clindamycin Other - See Medium 10/05/2016 comments, Itching Clonazepam Itching, Medium 11/23/2017 Rash, Swelling All steroids-muscle weakness t Corticosteroids Rash 01/20/2016 (Glucocorticoids) Iodine Rash 10/05/2016 Lincomycin Rash Medium 09/15/2017 Nitrofurantoin Rash 01/27/2018 steroid Other [place]-3s Anaphylaxis 01/27/2018 States it would be fatal Penicillins Other - See High 01/20/2016 comments, Shortness of Breath Sulfa (Sulfonamide Other - See 01/20/2016 Antibiotics) comments, Swelling New string of tetanus- went to ER , medication for throat closing up Tetanus Vaccines And Swelling High 01/20/2016 Toxoid documented as of this encounter (statuses as of 01/23/2019) Medications End Date Status Medication Sig Dispensed [...] mg tablet 0 9 Active CBD oil ([employer]S HOPE) Take by 0 20:1 with safflower [...] as of this encounter (statuses as of 01/23/2019) Active Problems Problem Noted Date Chronic lumbar radiculopathy 01/12/2019 Overview: Added automatically from request for surgery [id number] 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/12/2019 Overview: Added automatically from request for surgery [id number] Obesity (BMI 30-39.9) 12/16/2018 Recurrent UTI 05/17/2018 [...] as of this encounter (statuses as of 01/23/2019) Resolved Problems Problem Noted Date Resolved Date 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/12/2019 01/16/2019 Overview: Added automatically from request for surgery [id number] documented as of this encounter (statuses as of 01/23/2019) Immunizations Name Administration Dates Next Due Influenza [...] Date Type Specialty Chas Poon MD [address] [id number] [place] [address] [phone] Juanita Casas, PT 01/25/2019 Ancillary Visit Physical Therapy Gerber Ni [address] [id number] [place], [place] [phone] 01/31/2019 Office Visit Obstetrics & Gynecology Dieter Zhou MD 301 [facility] [id number] [place], [place] [phone] 02/01/2019 Office Visit Pulmonary Disease AugustoJuanita, PT 02/03/2019 Ancillary Visit Physical Therapy Sukh Harris MD [address] [phone] 02/09/2019 Office Visit Pain Medicine Zoila Rodas AGNP [address] [place] [address] [phone] 03/01/2019 Office Visit Nephrology Sukh Harris MD 301 [facility] [id number] [place] [address] [phone] 03/23/2019 Office Visit Pain Medicine Health Maintenance [...]
--- OUTSIDE RECORDS SUMMARY | 2019-06-09 13:23 | XMS REPORT | Summary of Care ---
Author Author [facility] - Health Organization [facility] - Health Address Unknown Phone Unavailable Care Team Providers Care Forge Utility Worker Name Role Phone Fabien Fernandes MD Unavailable Leena Bañuelosynpatricia MURILLO PCP Encounter Details Care Team Description Date Type Department Doctor Unassigned, Keachi [address] [place] [address] 01/23/2019 Orders Only [facility] 301 [place] [address] Allergies Comments Active Allergy Reactions Severity Noted Date Azithromycin Itching 01/07/2019 Ciprofloxacin Rash 01/27/2018 Clindamycin Other - See Medium 10/05/2016 comments, Itching Clonazepam Itching, Medium 11/23/2017 Rash, Swelling All steroids-muscle weakness t Corticosteroids Rash 01/20/2016 (Glucocorticoids) Iodine Rash 10/05/2016 Lincomycin Rash Medium 09/15/2017 Nitrofurantoin Rash 01/27/2018 steroid Other [place]-3s Anaphylaxis 01/27/2018 States it would be fatal [...] Overview: Added automatically from request for surgery [id number] 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/12/2019 Overview: Added automatically from request for surgery [id number] Obesity (BMI 30-39.9) 12/16/2018 Recurrent UTI 05/17/2018 [...] Overview: Added automatically from request for surgery [id number] documented as of this encounter (statuses as [...] Specialty Chas Poon MD [address] [id number] [place] [address] [phone] Juanita Casas, MURIEL 01/25/2019 Ancillary Visit Physical Therapy Gerber Ni [address] [id number] [place], [place] [phone] 01/31/2019 Office Visit Obstetrics & Gynecology Dieter Zhou MD [address] [id number] [place], [place] 196635 02/01/2019 Office Visit Pulmonary Disease Augusto Juanita, PT 02/03/2019 Ancillary Visit Physical Therapy Sukh Harris MD 301 [facility] [id number] [place] [address] 648405 02/09/2019 Office Visit Pain Medicine Zoila Rodas AGNP [address] [place] [address] [phone] 03/01/2019 Office Visit Nephrology Sukh Harris MD 301 [facility] [id number] [place] [address] [phone] 03/23/2019 Office Visit Pain Medicine Health Maintenance [...] Comments Procedure Name Priority Date/Time Associated Diagnosis DAY SURGERY - VICTORY Routine 01/23/2019 [place] 12:01 AM CDT documented in this encounter Results Not on filedocumented in this encounter Insurance Type Payer Benefit Subscriber ID Effective Phone Address Plan / Dates Group Medicaid [employer] [place] xxxxxxxxx 2015-P PLAN - MANAGED MEDICAID STAR PLUS resent documented as of this encounter
--- OUTSIDE RECORDS SUMMARY | 2019-06-09 13:23 | XMS REPORT | Summary of Care ---
Author Author [facility] - Health Organization [facility] - Health Address Unknown Phone Unavailable Care Team Providers Care Data Center Consultant Name Role Phone Fabien Fernandes MD Unavailable Leena Bañuelosynpatricia MURILLO PCP Reason for Visit * Reason Comments ED F/U Encounter Details Care Team Description Date Type Department Unique Campos, CARLITA [address] [place] [address] ED F/U 01/20/2019 Patient [facility] Allergies Comments Active Allergy Reactions Severity Noted Date Azithromycin Itching 01/07/2019 Ciprofloxacin Rash 01/27/2018 Clindamycin Other - See Medium 10/05/2016 comments, Itching Clonazepam Itching, Medium 11/23/2017 Rash, Swelling All steroids-muscle weakness t Corticosteroids Rash 01/20/2016 (Glucocorticoids) Iodine Rash 10/05/2016 Lincomycin Rash Medium 09/15/2017 Nitrofurantoin Rash 01/27/2018 steroid Other [place]-3s Anaphylaxis 01/27/2018 States it would be fatal [...] Overview: Added automatically from request for surgery [id number] 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/12/2019 Overview: Added automatically from request for surgery [id number] Obesity (BMI 30-39.9) 12/16/2018 Recurrent UTI 05/17/2018 [...] Overview: Added automatically from request for surgery [id number] documented as of this encounter (statuses as [...] Signs Not on filedocumented in this encounter Progress Notes * Unique Campos RN - 01/20/2019 2:56 PM CDT CM attempted ED follow up call. No answer, no voicemail. documented in this encounter Plan of Treatment Care Team Description Date Type Specialty Sukh Harris MD [address] [place] [address] [id number] [place] [address] [phone] Chronic lumbar radiculopathy 01/23/2019 Hospital Surgery Encounter Belkys Medley RN [address] [place] [address] 01/23/2019 Anesthesia Surgery Event Sukh Harris MD [address] [id number] MEDIAL BRANCH BLOCK 01/23/2019 Surgery Surgery Chas Poon MD 301 [facility] [id number] [place] [address] [phone] Juanita Casas, PT 01/25/2019 Ancillary Visit Physical Therapy Gerber Ni [address] [phone] 01/31/2019 Office Visit Obstetrics & Gynecology Dieter Zhou MD [address] 289455 02/01/2019 Office Visit Pulmonary Disease Juanita Casas, PT 02/03/2019 Ancillary Visit Physical Therapy Sukh Harris MD [address] [phone] 02/09/2019 Office Visit Pain Medicine Zoila Rodas AGNP 301 [place], [place] 964855 03/01/2019 Office Visit Nephrology Sukh Harris MD [address] 935165 03/23/2019 Office Visit Pain Medicine Health Maintenance [...]
--- OUTSIDE RECORDS SUMMARY | 2019-06-09 13:23 | XMS REPORT | Summary of Care ---
Author Author [facility] - Health Organization [facility] - Health Address Unknown Phone Unavailable Care Team Providers Care Compressor Assembler Name Role Phone Fabien Fernandes MD Unavailable Leena Bañuelosynh PCP Reason for Referral * (Routine) Referred By Contact Referred To Contact Status Reason Specialty Diagnoses / Procedures Sukh Harris MD [address] [facility] [address] [address] [address] New Request Diagnostic Diagnoses Radiology Spondylosis of lumbar region without myelopathy or radiculopathy Chronic lumbar radiculopathy P rocedures FL TIME OR (NON-REPORTABLE) * (Routine) Referred By Contact Referred To Contact Status Reason Specialty Diagnoses / Procedures Sukh Harris MD 301 [facility] [address] [address] New Request Diagnostic Diagnoses Radiology Spondylosis of lumbar region without myelopathy or radiculopathy Chronic lumbar radiculopathy P rocedures FL TIME OR (NON-REPORTABLE) Reason for Visit * Auth/Cert Referred By Contact Referred To Contact Status Reason Specialty Diagnoses / Procedures Encounter Details Care Team Description Date Type Department Sukh Harris MD 301 [facility] [address] [address] Chronic lumbar radiculopathy 01/23/2019 Hospital [facility] Encounter Post Anesthesia Care Unit [address] [place] [address] Allergies Comments Active Allergy Reactions Severity Noted Date Azithromycin Itching 01/07/2019 Ciprofloxacin Rash 01/27/2018 Clindamycin Other - See Medium 10/05/2016 comments, Itching Clonazepam Itching, Medium 11/23/2017 Rash, Swelling All steroids-muscle weakness t Corticosteroids Rash 01/20/2016 (Glucocorticoids) Iodine Rash 10/05/2016 Lincomycin Rash Medium 09/15/2017 Nitrofurantoin Rash 01/27/2018 steroid Other [place]-3s Anaphylaxis 01/27/2018 States it would be fatal [...] Overview: Added automatically from request for surgery [id number] 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/12/2019 Overview: Added automatically from request for surgery [id number] Obesity (BMI 30-39.9) 12/16/2018 Recurrent UTI 05/17/2018 [...] Overview: Added automatically from request for surgery [id number] documented as of this encounter (statuses as [...] Signs Reading Time Taken Comments Vital Sign 120/70 01/23/2019 10:40 AM CDT Blood Pressure 76 01/23/2019 10:40 AM CDT Pulse 36.7 C (98.1 F) 01/23/2019 9:41 AM CDT Temperature 19 01/23/2019 10:40 AM CDT Respiratory Rate 95% 01/23/2019 10:40 AM CDT Oxygen Saturation - - Inhaled Oxygen Concentration 82.6 kg (182 lb) 01/23/2019 7:52 AM CDT Weight 154.9 cm (5' 1") 01/23/2019 7:52 AM CDT Height 34.39 01/23/2019 7:52 AM CDT Body Mass Index documented in this encounter Discharge Instructions * Instructions* Trang Martin RN - 01/23/2019 Pain Discharge Instructions 1. Activity as tolerated. Try to take it easy the day of the procedure with no heavy lifting for the next few days. 2. Advance diet as tolerated. 3. Resume home medications as directed. 4. Apply ice pack to procedure site as needed for pain/discomfort. Place on fo r 20 minutes then remove for 20 minutes. Can do this 3-4 times a day. 5. May remove dressing in 24 hours. Then you may shower after dressing is remov ed. 6. No driving for the next 24 hours. 7. Call surgeon if uncontrolled pain or bleeding, or new onset of numbness or t ingling, or a headache that changes with position changes or any other concerns or questions. Contact Information [facility] ~ Daytime: [phone] After Hours: [facility] Access Line [phone] and ask to speak to the Nurse On-Juan l General Surgical Discharge Instructions: ? The medication that was used will be acting in your system for the next 24 donna rs, so you might feel a little drowsy, with impaired judgment and/ or motor func tion. This feeling should wear off. Because the medication is still in your sy stem for the next 24 hours you SHOULD NOT:o Drive a car, operate machinery or po wer tools.o Drink any alcoholic beverages.o Make any important decisions or sign any legal documents.? You should rest the remainder of the day and not engage in any physical activity. YOU ARE RESPONSIBLE FOR HAVING SOMEONE AT HOME WITH YOU DURING THE AFTERNOON AND NIGHT IMMEDIATELY FOLLOWING YOUR SURGERY. Patients s hould cough and deep breathe every 2-4 hours while awake to avoid respiratory co mplications.? Because the medications used could produce some residual nausea an d vomiting after you go home, you should eat lightly today, starting with clear liquids (broth, soft drinks, apple juice, jello) and toast or crackers, progress ing to your normal diet as tolerated. If you get sick, wait a couple of hours a nd then begin to eat. After 24 hours the nausea should be gone. If your nausea persists, call your physician.? You may experience some pain and your physician will advise you on what to take for discomfort. This should be taken as direct ed. If the pain is not relieved, contact your physician. You may also have a s ore throat from the airway/ breathing tube that was in place. You may use lozen ges, throat spray (Chloraseptic), or warm salt water gargles for symptomatic rel ief.? If you are unable to urinate within five hours after your procedure, call your physician.? The type of surgery performed will determine how much bleeding (if any) to expect. Normally, some spotting might occur. If your dressing pad become saturated, notify your physician. Elevate surgical site, if applicable, to reduce swelling and pain.? Preventing a surgical site infection:o Montez bhakta ke. It is best to quit at least 30 days before surgery, but quitting after surg carrie is also helpful. o If you are a diabetic, keep your blood sugar well controlled. WASH YOUR HANDS . o Keep your wound clean and remember to wash your hands before and after contact with the area. o Call your doctor if you have signs of infection: ? increased tenderness at the surgical site ? red streaks or increased redness of the area ? bad-smelling discharge from the incision ? fever of 101 or higher TOBACCO AVOIDANCE Exposure to tobacco either from smoking or from second hand (environmental)smoke or smokeless tobacco (snuff) is damaging to your health. This information is to encourage everyone to avoid tobacco exposure. It is recommended that you: If you smoke or use smokeless tobacco, we encourage you to quit. If you have already quit smoking, continue your good work! If you do not smoke or use smokeless tobacco, do not start. Avoid secondhand smoke. Additional Resources: You may want to contact these organizations for further information on smokin g and how to quit- [place] [employer] - http://www.lungusa.org/stop-smoking/ [place] [employer] - http://www.cancer.org/Healthy/StayAwayfromTobacco/i ndex [place] [employer] - http://www.heart.org/HEARTORG/GettingHealthy/Jamil tSmoking/Quit-Smoking_[facility]_001085_SubHomePage.jsp documented in this encounter Plan of Treatment Care Team Description Date Type Specialty Chas Poon MD 301 [facility] [id number] [place], [place] [phone] Juanita Casas, PT 01/25/2019 Ancillary Visit Physical Therapy Gerber Ni [address] [place], [place] [id number] [place], [place] [phone] 01/31/2019 Office Visit Obstetrics & Gynecology Dieter Zhou MD 301 [facility] [id number] [place], [place] [phone] 02/01/2019 Office Visit Pulmonary Disease Juanita Casas, PT 02/03/2019 Ancillary Visit Physical Therapy Sukh Harris MD 301 [facility] [place] [phone] 02/09/2019 Office Visit Pain Medicine Zoila Rodas AGNP [address] [place] [phone] 03/01/2019 Office Visit Nephrology Sukh Harris MD [address] [phone] 03/23/2019 Office Visit Pain Medicine Health Maintenance [...] Comments Procedure Name Priority Date/Time Associated Diagnosis FL TIME OR Routine 01/23/2019 Spondylosis of lumbar (NON-REPORTABLE) 9:36 AM CDT region without myelopathy or radiculopathy Chronic lumbar radiculopathy documented in this encounter Results * FL TIME OR (NON-REPORTABLE) (01/23/2019 9:36 AM CDT) Specimen Narrative Performed At These images do not require a Radiology diagnostic report. PACS Performing Organization Address City/State/[place] Phone Number PACS documented in this encounter Visit Diagnoses Diagnosis Spondylosis of lumbar region without myelopathy or radiculopathy Lumbosacral spondylosis without myelopathy Chronic lumbar radiculopathy Thoracic or lumbosacral neuritis or radiculitis, unspecified documented in this encounter Administered Medications Action Date Dose Rate Site Medication Order [facility] Action 01/23/2019 9:35 AM CDT 8 mL bupivacaine (preserv free) 0.5% Given (SENSORCAINE MPF) 0.5 % (5 mg/mL) injection PRN, Starting 01/23/19 at 0935, Until Discontinued, Routine, Intra-op 01/23/2019 9:35 AM CDT 12 mL lidocaine 1% (PF) (XYLOCAINE) injection Given PRN, Starting 01/23/19 at 0935, Until Discontinued, Routine, Intra-op 01/23/2019 9:26 AM CDT 20 mL NaCl 0.9% (NS) injection Given PRN, Starting 01/23/19 at 0926, Until Discontinued, Routine, Intra-op Action Date Dose Rate Site Medication Order [facility] Action 01/23/2019 8:00 AM CDT 1,000 mL 20 mL/hr lactated ringers IV infusion 1,000 mL New Bag at 20 mL/hr, 1,000 mL, IV Infusion, ONCE, 1 dose, 01/23/19 at 0800, Routine, DSU Pre-op documented in this encounter Insurance Type Payer Benefit Subscriber ID Effective Phone Address Plan / Dates Group Medicaid [employer]HC [place] xxxxxxxxx 2015-P PLAN - MANAGED MEDICAID STAR PLUS resent documented as of this encounter
--- OUTSIDE RECORDS SUMMARY | 2019-06-09 13:23 | XMS REPORT | Summary of Care ---
Author Author [facility] - Health Organization [facility] - Health Address Unknown Phone Unavailable Care Team Providers Care Technical Laboratory Asst Name Role Phone Fabien Fernandes MD Unavailable Leena Bañuelosynpatricia MURILLO PCP Reason for Visit * Reason Comments Assessment Encounter Details Care Team Description Date Type Department Sukh Harris MD [address] [place] [address] Assessment 01/23/[address] [facility] Anesthesia [facility] [address] [place] [address] Allergies Comments Active Allergy Reactions Severity Noted Date Azithromycin Itching 01/07/2019 Ciprofloxacin Rash 01/27/2018 Clindamycin Other - See Medium 10/05/2016 comments, Itching Clonazepam Itching, Medium 11/23/2017 Rash, Swelling All steroids-muscle weakness t Corticosteroids Rash 01/20/2016 (Glucocorticoids) Iodine Rash 10/05/2016 Lincomycin Rash Medium 09/15/2017 Nitrofurantoin Rash 01/27/2018 steroid Other [place]-3s Anaphylaxis 01/27/2018 States it would be fatal [...] mg tablet 0 9 Active CBD oil (Namely'S HOPE) Take by 0 20:1 with safflower [...] Overview: Added automatically from request for surgery [id number] 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/12/2019 Overview: Added automatically from request for surgery [id number] Obesity (BMI 30-39.9) 12/16/2018 Recurrent UTI 05/17/2018 [...] Overview: Added automatically from request for surgery [id number] documented as of this encounter (statuses as [...] Date Type Specialty Chas Poon MD [address] [place] [address] [phone] Juanita Casas, PT 01/25/2019 Ancillary Visit Physical Therapy Gerber Ni [id number] [place], [place] [address] 01/31/2019 Office Visit Obstetrics & Gynecology Dieter Zhou MD 301 [facility] [id number] [place], [place] [address] 02/01/2019 Office Visit Pulmonary Disease AugustoJuanita deal, PT 02/03/2019 Ancillary Visit Physical Therapy Sukh Harris MD [address] [id number] 02/09/2019 Office Visit Pain Medicine Zoila Rodas AGNP [address] [place] [phone] 03/01/2019 Office Visit Nephrology Sukh Harris MD 301 [facility] [id number] [place] [phone] 03/23/2019 Office Visit Pain Medicine Health Maintenance [...]
--- OUTSIDE RECORDS SUMMARY | 2019-06-09 13:24 | XMS REPORT | Summary of Care ---
Author Author [facility] - Health Organization [facility] - Health Address Unknown Phone Unavailable Care Team Providers Care Physics Tutor Name Role Phone Fabien Fernandes MD Unavailable Leena Bañuelosynpatrciia MURILLO PCP Reason for Visit * Reason Comments New Evaluation IC / hx of bladder susp * (Routine) Referred By Contact Referred To Contact Status Reason Specialty Diagnoses / Procedures Leticia Handy MD [address] [place] [phone] Closed Obstetrics & Diagnoses Gynecology Interstitial cystitis P rocedures CONSULT/REFERRAL UROGYN UroGyn Encounter Details Care Team Description Date Type Department Gerber Ni 301 [facility] [id number] [place] [address] Mixed urge and stress incontinence (Primary Dx); Chronic interstitial cystitis 01/31/2019 Office Visit [facility] [address] [place] [address] [address] [place] [address] Allergies Comments Active Allergy Reactions Severity Noted Date Azithromycin Itching 01/07/2019 Ciprofloxacin Rash 01/27/2018 Clindamycin Other - See Medium 10/05/2016 comments, Itching Clonazepam Itching, Medium 11/23/2017 Rash, Swelling All steroids-muscle weakness t Corticosteroids Rash 01/20/2016 (Glucocorticoids) Iodine Rash 10/05/2016 Lincomycin Rash Medium 09/15/2017 Nitrofurantoin Rash 01/27/2018 steroid Other [place]-3s Anaphylaxis 01/27/2018 States it would be fatal Penicillins Other - See High 01/20/2016 comments, Shortness of Breath Sulfa (Sulfonamide Other - See 01/20/2016 Antibiotics) comments, Swelling New string of tetanus- went to ER , medication for throat closing up Tetanus Vaccines And Swelling High 01/20/2016 Toxoid documented as of this encounter (statuses as of 01/31/2019) Medications End Date Status Medication Sig Dispensed [...] tablet Take 20 mg by 0 mouth. Active phenazopyridine 200 mg Take 1 tablet 9 tablet 0 tabletIndications: by mouth 3 9 Dysuria (three) times daily. documented as of this encounter (statuses as of 01/31/2019) Active Problems Problem Noted Date Chronic lumbar radiculopathy 01/12/2019 Overview: Added automatically from request for surgery [id number] 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/12/2019 Overview: Added automatically from request for surgery [id number] Obesity (BMI 30-39.9) 12/16/2018 Recurrent UTI 05/17/2018 [...] as of this encounter (statuses as of 01/31/2019) Resolved Problems Problem Noted Date Resolved Date 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/12/2019 01/16/2019 Overview: Added automatically from request for surgery [id number] documented as of this encounter (statuses as of 01/31/2019) Immunizations Name Administration Dates Next Due Influenza [...] Signs Reading Time Taken Comments Vital Sign - - Blood Pressure - - Pulse - - Temperature - - Respiratory Rate - - Oxygen Saturation - - Inhaled Oxygen Concentration 82.6 kg (182 lb 1.6 oz) 01/31/2019 3:11 PM CDT Weight - - Height 34.41 01/23/2019 7:52 AM CDT Body Mass Index documented in this encounter Progress Notes * Radha Sandoval MA - 01/31/2019 2:30 PM CDT Examination chaperoned by Radha Sandoval MA. * Betsy Valdes MD - 01/31/2019 2:30 PM CDT 01/31/2019 Visit Type: Clinic Note Primary M.D.: Leena Bañuelos John Nieto is a 63 year old female, . Chief complaint is "interstitial cystitis" HPI s/p abdominal hysterectomy and bladder suspension for endometriosis in 1991, bel ieves she still has a cervix, no h/o abnl pap smears. Has a h/o recurrent UTIs, under care of urology, last seen 08/2018 by uro [employer] and started on vaginal estroge n but was taken off due to fibrocystic breast changes. Dx with interstitial cyst itis "years ago" and given phenazopyridine in December. Currently c/o bladder spasms and sometimes difficulty urinating. Leaks continuou sly, also leaks with cough or sneeze. Feels strong urge prior to leaking. Has be en wearing diapers since 2015. Also loses urine with seizure. Gets up 3-4 times at night to urinate. Has been on medication for these problems. Has not tried ph ysical therapy. Last took antibiotics for UTI, keflex 2 weeks ago, discontinued due to swelling. Leaks stool occassionally, has internal and external hemorrhoid s. Feels bulging of vagina. Is not sexually active. MEDICATIONS none HISTORY Allergies Allergen Reactions Pcn [Penicillins] Other - See comments and Shortness of Breath States it would be fatal Tetanus Vaccines And Toxoid Swelling New string of tetanus- went to ER , medication for throat closing up Clindamycin Other - See comments and Itching Clonazepam Itching, Rash and Swelling Lincomycin Rash Azithromycin Itching Ciprofloxacin Rash Corticosteroids (Glucocorticoids) Rash All steroids-muscle weakness t Iodine Rash Nitrofurantoin Rash Other [place]-3s Anaphylaxis steroid Sulfa (Sulfonamide Antibiotics) Other - See comments and Swelling Social History Tobacco Use Smoking status: Former Smoker Smokeless tobacco: Never Used Substance Use Topics Alcohol use: No Drug use: No Family History Problem Relation Age of Onset Heart Mother Hypertension Mother Diabetes Father Hypertension Father Past Medical History: Diagnosis Date Depression Frequent falls Hyperlipidemia Hypertension IBS (irritable bowel syndrome) Low back pain Osteoporosis b/l hip Seizure (nonepileptic psychogenic) Past Surgical History: Procedure Laterality Date CHOLECYSTECTOMY HYSTERECTOMY MEDIAL BRANCH BLOCK (SHX) Right 01/23/2019 Surgeon: Sukh Harris MD; Location: [facility] TONSILLECTOMY Review of Systems Constitutional: Positive for diaphoresis, fever and unexpected weight change. HENT: Positive for hearing loss, sinus pressure, tinnitus and trouble swallowing . Negative for nosebleeds. Eyes: Positive for redness. Cataracts, glasses/contacts, blurred and double vision Respiratory: Positive for cough and shortness of breath. Cardiovascular: Positive for chest pain and palpitations. Gastrointestinal: Positive for abdominal pain, nausea and vomiting. Genitourinary: Positive for bladder incontinence, urgency, frequency, enuresis, pelvic pain and nocturia. Musculoskeletal: Positive for gait problem, joint swelling and myalgias. Neurological: Positive for dizziness, seizures, syncope, speech difficulty, weak ness and headaches. Negative for facial asymmetry. Psychiatric/Behavioral: The patient is nervous/anxious. Endocrine: Thyroid and "borderline" diabetes Physical Exam Vitals reviewed. Constitutional: She is oriented to person, place, and time. She appears well-dev eloped and well-nourished. Pulmonary/Chest: Normal inspiratory effort. Abdominal: Abdomen is soft. No tenderness present. There is no rigidity and no g uarding. Neuro/Psychiatric: Inappropriate mood and affect. Patient with speech and movement difficulties. Child-like affect, poor eye conta ct. She is oriented to person, place, and time. Skin: Skin normal. Genitourinary Comments: Patient with hx of seizure with pelvic exam. External ge nitalia examined only, without lesions. Stage 1 POP noted with valsalva. POP-Q EXAM Not done ASSESSMENT/PLAN Mixed urge and stress incontinence (primary encounter diagnosis) Comment: see HPI. Pt with hx of seizure with pelvic exam, likely unable to betty ate in office cysto or cmg. In office exam today limited but unremarkable. Plan: follow up with [facility] and follow up for pre op exam under anesthesia, cystos copy, urethral bulking. Pt may benefit from bladder instillation if able to tole rate in the future - patient states that prophylactic Tylenol and CBD oil may pr event seizure Chronic interstitial cystitis Comment: previously followed by urology, on gabapentin 400 mg TID. Reports recur rent UTIs, UDip negative today, last culture 12/2018 contaminated Plan: EUA and cysto as above Discussed treatment options and patient given educational materials on IC, bladd er irritants, and urethral bulking. Return for preop for exam under anesthesia, cystoscopy, urethral bulking. Will e mail [facility] for preop eval. Total time of visit: 45 minutes I spent less than 50% of the visit counseling and coordinating with the patient regarding bladder complaints. Betsy Valdes MD * Leticia Mcadams RN - 01/31/2019 2:30 PM CDT POCT U SP GRAV (mg/dl) Date Value 01/31/2019 1.005 POCT PH U (mg/dl) Date Value 01/31/2019 5 POCT U LEUK EST (no units) Date Value 01/31/2019 neg POCT U NIT (no units) Date Value 01/31/2019 neg POCT U PROT (no units) Date Value 01/31/2019 neg POCT U GLU (no units) Date Value 01/31/2019 neg POCT U KETONE (no units) Date Value 01/31/2019 neg POCT U UROBILI (mg/dl) Date Value 01/31/2019 neg POCT U BILI (no units) Date Value 01/31/2019 neg POCT U BLD (no units) Date Value 01/31/2019 neg POCT U COLOR (no units) Date Value 01/31/2019 yellow POCT U APPEAR (no units) Date Value 01/31/2019 clear documented in this encounter Plan of Treatment Care Team Description Date Type Specialty Dieter Zhou MD [address] [id number] [place], [place] [address] 02/01/2019 Office Visit Pulmonary Disease Juanita Casas, PT 02/03/2019 Ancillary Visit Physical Therapy Sukh Harris MD [address] [address] 02/09/2019 Office Visit Pain Medicine Gerber Ni [address] [phone] 02/21/2019 Office Visit Obstetrics & Gynecology Zoila Rodas AGNP [address] [place] [phone] 03/01/2019 Office Visit Nephrology Sukh Harris MD [address] [phone] 03/23/2019 Office Visit Pain Medicine Health Maintenance [...] Comments Procedure Name Priority Date/Time Associated Diagnosis POCT URINALYSIS Routine 01/31/2019 3:11 PM CDT documented in this encounter Results * POCT URINALYSIS W SPECIFIC GRAVITY (01/31/2019 3:11 PM CDT) POCT U SP GRAV 1.005 1.005 - 1.025 mg/dl POCT PH U 5 5 - 8 mg/dl POCT U LEUK EST neg Negative - Negative POCT U NIT neg Negative - Negative POCT U PROT neg Negative - Negative POCT U GLU neg Negative - Negative POCT U KETONE neg Negative - Negative POCT U UROBILI neg 0.2 - 1 mg/dl POCT U BILI neg Negative - Negative POCT U BLD neg Negative - Negative POCT U COLOR yellow POCT U APPEAR clear Specimen Urine - URINE, CLEAN CATCH documented in this encounter Visit Diagnoses Diagnosis Mixed urge and stress incontinence - Primary Mixed incontinence urge and stress (male)(female) Chronic interstitial cystitis documented in this encounter Insurance Type Payer Benefit Subscriber ID Effective Phone Address Plan / Dates Group Medicaid [employer]HC [place] xxxxxxxxx 2015-P PLAN - MANAGED MEDICAID STAR PLUS resent documented as of this encounter
--- OUTSIDE RECORDS SUMMARY | 2019-06-09 13:24 | XMS REPORT | Summary of Care ---
Author Author [facility] - Health Organization [facility] - Health Address Unknown Phone Unavailable Care Team Providers Care Ccnp Name Role Phone Fabien Fernandes MD Un[facility] Reason for Visit * Reason Comments Forms Encounter Details Care Team Description Date Type Department Jamison Bañuelos Addy [address] [place] [address] Forms 01/31/2019 Telephone [facility] Internal Medicine- [facility] [address] [place] [address] Allergies Comments Active Allergy Reactions Severity Noted Date Azithromycin Itching 01/07/2019 Ciprofloxacin Rash 01/27/2018 Clindamycin Other - See Medium 10/05/2016 comments, Itching Clonazepam Itching, Medium 11/23/2017 Rash, Swelling All steroids-muscle weakness t Corticosteroids Rash 01/20/2016 (Glucocorticoids) Iodine Rash 10/05/2016 Lincomycin Rash Medium 09/15/2017 Nitrofurantoin Rash 01/27/2018 steroid Other [place]-3s Anaphylaxis 01/27/2018 States it would be fatal [...] Overview: Added automatically from request for surgery [id number] 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/12/2019 Overview: Added automatically from request for surgery [id number] Obesity (BMI 30-39.9) 12/16/2018 Recurrent UTI 05/17/2018 [...] Overview: Added automatically from request for surgery [id number] documented as of this encounter (statuses as [...] Treatment Care Team Description Date Type Specialty Gerber Ni [address] [id number] [place], [place] [phone] 01/31/2019 Office Visit Obstetrics & Gynecology Dieter Zhou MD [address] [id number] [place], [place] [phone] 02/01/2019 Office Visit Pulmonary Disease Juanita Casas, PT 02/03/2019 Ancillary Visit Physical Therapy Sukh Harris MD 301 [facility] [id number] [place] [address] [phone] 02/09/2019 Office Visit Pain Medicine Zoila Rodas AGNP 301 [place] [address] [phone] 03/01/2019 Office Visit Nephrology Sukh Harris MD 301 [facility] [id number] [place] [address] [phone] 03/23/2019 Office Visit Pain Medicine Health Maintenance [...]
--- OUTSIDE RECORDS SUMMARY | 2019-06-09 13:24 | XMS REPORT | Summary of Care ---
Author Author [facility] - Health Organization [facility] - Health Address Unknown Phone Unavailable Care Team Providers Care Hoe Worker Name Role Phone Fabien Fernandes MD [facility] Reason for Visit * Reason Comments Forms Encounter Details Care Team Description Date Type Department Jamison Bañuelos Addy [address] [place] [address] Forms 01/31/2019 Telephone [facility] Internal Medicine- [facility] C[facility] [address] [place] [address] Allergies Comments Active Allergy Reactions Severity Noted Date Azithromycin Itching 01/07/2019 Ciprofloxacin Rash 01/27/2018 Clindamycin Other - See Medium 10/05/2016 comments, Itching Clonazepam Itching, Medium 11/23/2017 Rash, Swelling All steroids-muscle weakness t Corticosteroids Rash 01/20/2016 (Glucocorticoids) Iodine Rash 10/05/2016 Lincomycin Rash Medium 09/15/2017 Nitrofurantoin Rash 01/27/2018 steroid Other [place]-3s Anaphylaxis 01/27/2018 States it would be fatal [...] Overview: Added automatically from request for surgery [id number] 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/12/2019 Overview: Added automatically from request for surgery [id number] Obesity (BMI 30-39.9) 12/16/2018 Recurrent UTI 05/17/2018 [...] Overview: Added automatically from request for surgery [id number] documented as of this encounter (statuses as [...] Date Type Specialty Dieter Zhou MD 301 [facility] [id number] [place] [address] 02/01/2019 Office Visit Pulmonary Disease Juanita Casas, PT 02/03/2019 Ancillary Visit Physical Therapy Sukh Harris MD 301 [facility] [id number] [place] [address] 02/09/2019 Office Visit Pain Medicine Zoila Rodas AGNP [address] [place] [address] [phone] 03/01/2019 Office Visit Nephrology Sukh Harris MD [address] [id number] [place] [address] [phone] 03/23/2019 Office Visit Pain Medicine Health Maintenance [...]
--- OUTSIDE RECORDS SUMMARY | 2019-06-09 13:24 | XMS REPORT | Summary of Care ---
Author Author [facility] - Health Organization [facility] - Health Address Unknown Phone Unavailable Care Team Providers Care Master Machinist Name Role Phone Fabien Fernandes MD Unavailable Leena Bañuelos DO PCP Reason for Visit * Reason Comments Rx Concern/Question Assessment Encounter Details Care Team Description Date Type Department Leena Bañuelos DO [address] [address] Rx Concern/Question; Assessment 01/02/2019 Telephone [facility] Internal Medicine- [facility] C[facility] [address] [place] [address] Allergies Comments Active Allergy Reactions Severity Noted Date Azithromycin Itching 01/07/2019 Ciprofloxacin Rash 01/27/2018 Clindamycin Other - See Medium 10/05/2016 comments, Itching Clonazepam Itching, Medium 11/23/2017 Rash, Swelling All steroids-muscle weakness t Corticosteroids Rash 01/20/2016 (Glucocorticoids) Iodine Rash 10/05/2016 Lincomycin Rash Medium 09/15/2017 Nitrofurantoin Rash 01/27/2018 steroid Other [place]-3s Anaphylaxis 01/27/2018 States it would be fatal Penicillins Other - See High 01/20/2016 comments, Shortness of Breath Sulfa (Sulfonamide Other - See 01/20/2016 Antibiotics) comments, Swelling New string of tetanus- went to ER , medication for throat closing up Tetanus Vaccines And Swelling High 01/20/2016 Toxoid documented as of this encounter (statuses as of 01/30/2019) Medications End Date Status Medication Sig Dispensed Refills Start Date Active hydrOXYzine 25 mg tablet Take 25 mg by 0 mouth every 6 (six) hours. Active cetirizine 10 mg tablet Take 10 mg by 3 07/30/201 mouth every 8 morning. Active LORazepam 0.5 [...] as of this encounter (statuses as of 01/30/2019) Active Problems Problem Noted Date Chronic lumbar radiculopathy 01/12/2019 Overview: Added automatically from request for surgery [id number] 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/12/2019 Overview: Added automatically from request for surgery [id number] Obesity (BMI 30-39.9) 12/16/2018 Recurrent UTI 05/17/2018 [...] as of this encounter (statuses as of 01/30/2019) Resolved Problems Problem Noted Date Resolved Date 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/12/2019 01/16/2019 Overview: Added automatically from request for surgery [id number] documented as of this encounter (statuses as of 01/30/2019) Immunizations Name Administration Dates Next Due Influenza [...] Description Date Type Specialty Gerber Ni 301 [facility] [id number] [place], [place] [phone] 01/31/2019 Office Visit Obstetrics & Gynecology Dieter Zhou MD 301 [facility] [id number] [place] [phone] 02/01/2019 Office Visit Pulmonary Disease Juanita Casas, PT 02/03/2019 Ancillary Visit Physical Therapy Sukh Harris MD [address] [phone] 02/09/2019 Office Visit Pain Medicine Zoila Rodas AGNP [address] [place] [phone] 03/01/2019 Office Visit Nephrology Sukh Harris MD [address] [phone] 03/23/2019 Office Visit Pain Medicine Health Maintenance [...]
--- OUTSIDE RECORDS SUMMARY | 2019-06-09 13:24 | XMS REPORT | Summary of Care ---
Author Author [facility] - Health Organization [facility] - Health Address Unknown Phone Unavailable Care Team Providers Care Wastewater Superintendent Name Role Phone Fabien Fernandes MD Unavailable Leena Bañuelos DO PCP Reason for Visit * Reason Comments Assessment Encounter Details Care Team Description Date Type Department SofiaAlex turcios MD [address] [place] [address] Assessment 01/25/2019 Telephone [facility] [address] [place] [address] Allergies Comments Active Allergy Reactions Severity Noted Date Azithromycin Itching 01/07/2019 Ciprofloxacin Rash 01/27/2018 Clindamycin Other - See Medium 10/05/2016 comments, Itching Clonazepam Itching, Medium 11/23/2017 Rash, Swelling All steroids-muscle weakness t Corticosteroids Rash 01/20/2016 (Glucocorticoids) Iodine Rash 10/05/2016 Lincomycin Rash Medium 09/15/2017 Nitrofurantoin Rash 01/27/2018 steroid Other [place]-3s Anaphylaxis 01/27/2018 States it would be fatal Penicillins Other - See High 01/20/2016 comments, Shortness of Breath Sulfa (Sulfonamide Other - See 01/20/2016 Antibiotics) comments, Swelling New string of tetanus- went to ER , medication for throat closing up Tetanus Vaccines And Swelling High 01/20/2016 Toxoid documented as of this encounter (statuses as of 01/25/2019) Medications End Date Status Medication Sig Dispensed [...] as of this encounter (statuses as of 01/25/2019) Active Problems Problem Noted Date Chronic lumbar radiculopathy 01/12/2019 Overview: Added automatically from request for surgery [id number] 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/12/2019 Overview: Added automatically from request for surgery [id number] Obesity (BMI 30-39.9) 12/16/2018 Recurrent UTI 05/17/2018 [...] as of this encounter (statuses as of 01/25/2019) Resolved Problems Problem Noted Date Resolved Date 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/12/2019 01/16/2019 Overview: Added automatically from request for surgery [id number] documented as of this encounter (statuses as of 01/25/2019) Immunizations Name Administration Dates Next Due Influenza [...] Description Date Type Specialty Gerber Ni [id number] [place], [place] [address] 01/31/2019 Office Visit Obstetrics & Gynecology Dieter Zhou MD [address] [id number] [place], [place] [address] 02/01/2019 Office Visit Pulmonary Disease Lolita, Juanita, PT 02/03/2019 Ancillary Visit Physical Therapy Sukh Harris MD [address] [phone] 02/09/2019 Office Visit Pain Medicine Zoila Rodas AGNP [address] [place] [phone] 03/01/2019 Office Visit Nephrology Sukh Harris MD [address] [phone] 03/23/2019 Office Visit Pain Medicine Health Maintenance [...]
--- OUTSIDE RECORDS SUMMARY | 2019-06-09 13:24 | XMS REPORT | Summary of Care ---
Author Author [facility] - Health Organization [facility] - Health Address Unknown Phone Unavailable Care Team Providers Care Informal Waiter/Waitress Name Role Phone Fabien Fernandes MD Unavailable Leena Bañuelosynpatricia MURILLO PCP Reason for Visit * Reason Comments New Evaluation IC / hx of bladder susp * (Routine) Referred By Contact Referred To Contact Status Reason Specialty Diagnoses / Procedures Leticia Handy MD [address] [place] [phone] Closed Obstetrics & Diagnoses Gynecology Interstitial cystitis P rocedures CONSULT/REFERRAL UROGYN UroGyn Encounter Details Care Team Description Date Type Department Gerber Ni [address] [facility] [id number] [place] [address] Mixed urge and stress incontinence (Primary Dx); Chronic interstitial cystitis 01/31/2019 Office Visit [facility] [address] [place] [address] 2.[address] [place] [address] Allergies Comments Active Allergy Reactions Severity Noted Date Azithromycin Itching 01/07/2019 Ciprofloxacin Rash 01/27/2018 Clindamycin Other - See Medium 10/05/2016 comments, Itching Clonazepam Itching, Medium 11/23/2017 Rash, Swelling All steroids-muscle weakness t Corticosteroids Rash 01/20/2016 (Glucocorticoids) Iodine Rash 10/05/2016 Lincomycin Rash Medium 09/15/2017 Nitrofurantoin Rash 01/27/2018 steroid Other [place]-3s Anaphylaxis 01/27/2018 States it would be fatal [...] Overview: Added automatically from request for surgery [id number] 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/12/2019 Overview: Added automatically from request for surgery [id number] Obesity (BMI 30-39.9) 12/16/2018 Recurrent UTI 05/17/2018 [...] Overview: Added automatically from request for surgery [id number] documented as of this encounter (statuses as [...] of urology, last seen 08/2018 by uro EDITOR [employer]OOK and started on vaginal estroge n but [...] weakness t Iodine Rash Nitrofurantoin Rash Other [place]-3s Anaphylaxis steroid Sulfa (Sulfonamide Antibiotics) Other - [...] Right 01/23/2019 Surgeon: Sukh Harris MD; Location: [facility] TONSILLECTOMY Review of Systems Constitutional: [...] anesthesia, cystoscopy, urethral bulking. Will e mail [facility] for preop eval. Total time of visit: [...] Specialty Dieter Zhou MD [address] [id number] [place], [place] [address] 02/01/2019 Office Visit Pulmonary Disease Juanita Casas, PT 02/03/2019 Ancillary Visit Physical Therapy Sukh Harris MD [address] [phone] 02/09/2019 Office Visit Pain Medicine Gerber Ni [address] [phone] 02/21/2019 Office Visit Obstetrics & Gynecology Zoila Rodas AGNP [address] [place] [phone] 03/01/2019 Office Visit Nephrology Sukh Harris MD [address] [phone] 03/23/2019 Office Visit Pain Medicine Health Maintenance [...]
--- OUTSIDE RECORDS SUMMARY | 2019-06-09 13:24 | XMS REPORT | Summary of Care ---
Author Author [facility] - Health Organization [facility] Address Unknown Phone Unavailable Care Team Providers Care Kick Boxer Name Role Phone Fabien Fernandes MD Unavailable Leena Bañuelosynpatricia MURILLO PCP Reason for Visit * Reason Comments Assessment Back Pain Encounter Details Care Team Description Date Type Department Sukh Harris MD [id number] [place] [address] Assessment; Back Pain 01/23/2019 Telephone [facility] [address] [place] [address] Allergies Comments Active Allergy Reactions Severity Noted Date Azithromycin Itching 01/07/2019 Ciprofloxacin Rash 01/27/2018 Clindamycin Other - See Medium 10/05/2016 comments, Itching Clonazepam Itching, Medium 11/23/2017 Rash, Swelling All steroids-muscle weakness t Corticosteroids Rash 01/20/2016 (Glucocorticoids) Iodine Rash 10/05/2016 Lincomycin Rash Medium 09/15/2017 Nitrofurantoin Rash 01/27/2018 steroid Other [place]-3s Anaphylaxis 01/27/2018 States it would be fatal Penicillins Other - See High 01/20/2016 comments, Shortness of Breath Sulfa (Sulfonamide Other - See 01/20/2016 Antibiotics) comments, Swelling New string of tetanus- went to ER , medication for throat closing up Tetanus Vaccines And Swelling High 01/20/2016 Toxoid documented as of this encounter (statuses as of 01/24/2019) Medications End Date Status Medication Sig Dispensed [...] mg tablet 0 9 Active CBD oil ([employer] HOPE) Take by 0 20:1 with safflower [...] as of this encounter (statuses as of 01/24/2019) Active Problems Problem Noted Date Chronic lumbar radiculopathy 01/12/2019 Overview: Added automatically from request for surgery [id number] 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/12/2019 Overview: Added automatically from request for surgery [id number] Obesity (BMI 30-39.9) 12/16/2018 Recurrent UTI 05/17/2018 [...] as of this encounter (statuses as of 01/24/2019) Resolved Problems Problem Noted Date Resolved Date 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/12/2019 01/16/2019 Overview: Added automatically from request for surgery [id number] documented as of this encounter (statuses as of 01/24/2019) Immunizations Name Administration Dates Next Due Influenza [...] Specialty Chas Poon MD [address] [id number] [place] [address] [phone] Juanita Casas, PT 01/25/2019 Ancillary Visit Physical Therapy Gerber Ni [address] [id number] [place], [place] [phone] 01/31/2019 Office Visit Obstetrics & Gynecology Dieter Zhou MD 301 [facility] [id number] [place], [place] [address] 02/01/2019 Office Visit Pulmonary Disease AugustoJuanita, PT 02/03/2019 Ancillary Visit Physical Therapy Sukh Harris MD [address] [phone] 02/09/2019 Office Visit Pain Medicine Zoila Rodas AGNP [address] [place] [phone] 03/01/2019 Office Visit Nephrology Sukh Harris MD 301 [facility] [id number] [place] [phone] 03/23/2019 Office Visit Pain Medicine Health Maintenance [...]
--- OUTSIDE RECORDS SUMMARY | 2019-06-09 13:25 | XMS REPORT | Summary of Care ---
Author Author [facility] - Health Organization [facility] - Health Address Unknown Phone Unavailable Care Team Providers Care Manager Operational Name Role Phone Fabien Fernandes MD Unavailable Leena Bañuelosynpatricia MURILLO PCP Reason for Visit * Reason Comments Refill Request Encounter Details Care Team Description Date Type Department Mark Pacheco MD [address] [place] [address] Refill Request 02/01/2019 Refill [facility], [address] [place] [address] Allergies Comments Active Allergy Reactions Severity Noted Date Azithromycin Itching 01/07/2019 Ciprofloxacin Rash 01/27/2018 Clindamycin Other - See Medium 10/05/2016 comments, Itching Clonazepam Itching, Medium 11/23/2017 Rash, Swelling All steroids-muscle weakness t Corticosteroids Rash 01/20/2016 (Glucocorticoids) Iodine Rash 10/05/2016 Lincomycin Rash Medium 09/15/2017 Nitrofurantoin Rash 01/27/2018 steroid Other [place]-3s Anaphylaxis 01/27/2018 States it would be fatal Penicillins Other - See High 01/20/2016 comments, Shortness of Breath Sulfa (Sulfonamide Other - See 01/20/2016 Antibiotics) comments, Swelling New string of tetanus- went to ER , medication for throat closing up Tetanus Vaccines And Swelling High 01/20/2016 Toxoid documented as of this encounter (statuses as of 02/01/2019) Medications End Date Status Medication Sig Dispensed [...] mg tablet 0 9 Active CBD oil ([employer] HOPE) Take by 0 20:1 with safflower [...] as of this encounter (statuses as of 02/01/2019) Active Problems Problem Noted Date Chronic lumbar radiculopathy 01/12/2019 Overview: Added automatically from request for surgery [id number] 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/12/2019 Overview: Added automatically from request for surgery [id number] Obesity (BMI 30-39.9) 12/16/2018 Recurrent UTI 05/17/2018 [...] as of this encounter (statuses as of 02/01/2019) Resolved Problems Problem Noted Date Resolved Date 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/12/2019 01/16/2019 Overview: Added automatically from request for surgery [id number] documented as of this encounter (statuses as of 02/01/2019) Immunizations Name Administration Dates Next Due Influenza Virus Vaccine 03/21/2017 Influenza Virus Vaccine 04/19/2018 Quad ID [id number] documented as of this encounter Social History Date Tobacco Use Types Packs/Day Years Used Never Smoker Smokeless Tobacco: Never Used Drinks/Week oz/Week [...] Treatment Care Team Description Date Type Specialty Juanita Casas, MURIEL 02/03/2019 Ancillary Visit Physical Therapy Dieter Zhou MD [address] [id number] [place], [place] [phone] 02/04/2019 Appointment Radiology Sukh Harris MD [address] [id number] [place], [place] [phone] 02/09/2019 Office Visit Pain Medicine Gerber Ni [address] [id number] [place] [address] [phone] 02/21/2019 Office Visit Obstetrics & Gynecology Zoila Rodas AGNP 301 [place] [address] [phone] 03/01/2019 Office Visit Nephrology Test, [facility] Pulmonary Function 03/07/2019 Veneer Jointer Returner Pulmonary Function Visit Technologist Sukh Harris MD 301 [facility] [id number] [place] [address] [phone] 03/23/2019 Office Visit Pain Medicine ZhouDieter stovall MD 301 [facility] VC0028 [place] [address] [phone] 07/05/2019 Office Visit Pulmonary Disease Health Maintenance Due Date Last Done Comments [...]
--- OUTSIDE RECORDS SUMMARY | 2019-06-09 13:25 | XMS REPORT | Summary of Care ---
Author Author [facility] - Health Organization [facility] - Health Address Unknown Phone Unavailable Care Team Providers Care Director Of Medical Services Name Role Phone Fabien Fernandes MD Unavailable Leena Bañuelos DO PCP Reason for Visit * Reason Comments Forms wheelchair Encounter Details Care Team Description Date Type Department Leena Bañuelos DO [address] [place] [address] [place] [address] Forms (wheelchair) 02/06/2019 Telephone [facility] Internal Medicine- Mult[facility]ialty Ctr [address] [place] [address] Allergies Comments Active Allergy Reactions Severity Noted Date Azithromycin Itching 01/07/2019 Ciprofloxacin Rash 01/27/2018 Clindamycin Other - See Medium 10/05/2016 comments, Itching Clonazepam Itching, Medium 11/23/2017 Rash, Swelling All steroids-muscle weakness t Corticosteroids Rash 01/20/2016 (Glucocorticoids) Iodine Rash 10/05/2016 Lincomycin Rash Medium 09/15/2017 Nitrofurantoin Rash 01/27/2018 steroid Other [place]-3s Anaphylaxis 01/27/2018 States it would be fatal Penicillins Other - See High 01/20/2016 comments, Shortness of Breath Sulfa (Sulfonamide Other - See 01/20/2016 Antibiotics) comments, Swelling New string of tetanus- went to ER , medication for throat closing up Tetanus Vaccines And Swelling High 01/20/2016 Toxoid documented as of this encounter (statuses as of 02/06/2019) Medications End Date Status Medication Sig Dispensed [...] mg tablet 0 9 Active CBD oil ([employer] HOPE) Take by 0 20:1 with safflower [...] as of this encounter (statuses as of 02/06/2019) Active Problems Problem Noted Date Chronic lumbar radiculopathy 01/12/2019 Overview: Added automatically from request for surgery [id number] 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/12/2019 Overview: Added automatically from request for surgery [id number] Obesity (BMI 30-39.9) 12/16/2018 Recurrent UTI 05/17/2018 [...] as of this encounter (statuses as of 02/06/2019) Resolved Problems Problem Noted Date Resolved Date 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/12/2019 01/16/2019 Overview: Added automatically from request for surgery [id number] documented as of this encounter (statuses as of 02/06/2019) Immunizations Name Administration Dates Next Due Influenza [...] Date Type Specialty Sukh Harris MD 301 [facility] [id number] [place], [place] [phone] 02/09/2019 Office Visit Pain Medicine Gerber Ni 301 [facility] [id number] [place], [place] [address] 02/21/2019 Office Visit Obstetrics & Gynecology Zoila Rodas AGNP [address] [place] [address] [phone] 03/01/2019 Office Visit Nephrology Test, [facility] Pulmonary Function 03/07/2019 Title I Instructional Assistant Pulmonary Function Visit Technologist Sukh Harris MD [address] [id number] [place] [address] [phone] 03/23/2019 Office Visit Pain Medicine Mio Castro MD [address] [phone] 04/26/2019 Office Visit Cardiology Dieter Zhou MD [address] [id number] [place] [address] [phone] 07/05/2019 Office Visit Pulmonary Disease Health Maintenance Due Date Last Done Comments HEPATITIS C (HCV) SCREEN 1956 DTaP,Tdap,and Td Vaccines 02/23/1975 (1 - Tdap) COLONOSCOPY 02/23/2006 Zoster Recombinant 02/23/2006 Vaccine (SHINGRIX) (1 of 2) INFLUENZA VACCINE (#1) 2019 03/21/2017 MAMMOGRAM 08/08/2019 08/08/2018 PAP SMEAR 08/02/2021 08/02/2018 PNEUMOCOCCAL 0-64 YEARS [...]
--- OUTSIDE RECORDS SUMMARY | 2019-06-09 13:25 | XMS REPORT | Summary of Care ---
Author Author [facility] Organization [facility] Address Unknown Phone Unavailable Care Team Providers Care Well Testing Operator Name Role Phone JuniorMark Ashely PCP Reason for Visit * Reason Comments Follow Up pt also had seizures today Encounter Details Care Team Description Date Type Department Yenifer Rosario, DO [address] [facility] 9th [address] [place] [address] Follow Up (pt also had seizures today) 02/01/2019 Office Visit [facility] [address] [facility] 9th Floor, [address] [place] [address] Allergies Comments Active Allergy Reactions Severity Noted Date Ciprofloxacin 01/27/2018 Clindamycin/Lincomycin 09/15/2017 Iodine 01/15/2016 Clonazepam Itching, Medium 11/23/2017 Swelling, Rash Nitrofurantoin Rash 01/27/2018 steroid Other Anaphylaxis 01/27/2018 Penicillins 01/15/2016 Sulfa Antibiotics 01/15/2016 documented as of this encounter (statuses as of 02/01/2019) Medications End Date Status Medication Sig Dispensed Refills Start Date Active amlodipine (NORVASC) 5 MG Take 5 mg by 0 tabletIndications: mouth daily. Essential hypertension, Dyslipidemia, Precordial pain, SU (dyspnea on exertion) Active montelukast (SINGULAIR) Take 10 mg by 0 10 MG tabletIndications: mouth daily. Essential hypertension, Dyslipidemia, Precordial pain, SU (dyspnea on exertion) Active hydrOXYzine (ATARAX) 25 Take 25 mg by 0 MG tabletIndications: mouth 3 times Palpitations daily as needed for Itching. Active Cetirizine HCl 10 MG CAPS Take by 0 mouth. Active acetaminophen-codeine TAKE ONE (1) 0 (TYLENOL #3) 300-30 MG TABLET(S) BY 8 per tablet MOUTH EVERY SIX HOURS NEEDED FOR PAIN. Active albuterol (PROVENTIL HFA) Inhale 4 0 108 (90 base) mcg/act Puffs by inhaler mouth two times daily. Active Ergocalciferol (VITAMIN Take 50,000 0 D2 OR) Int'l Units by mouth every 7 days. Active metformin (GLUCOPHAGE) TAKE 1 TABLET 0 1000 MG tablet BY MOUTH WITH 8 A MEAL TWICE A DAY Active hydrochlorothiazide Take 25 mg by 0 (HYDRODIURIL) 25 MG mouth. 8 tablet Active Famotidine 20 MG CHEW Take by 0 mouth. Active cefdinir (OMNICEF) 300 MG Take 300 mg 0 capsule by mouth. 8 Active omeprazole (PRILOSEC) 40 Take 40 mg by 0 MG capsule mouth daily. Active famotidine (PEPCID) 20 MG TAKE 1 TABLET 3 tablet BY MOUTH 8 EVERY DAY Active dicyclomine (BENTYL) 20 0 MG tablet 9 Active lisinopril (PRINIVIL, TAKE 1 TABLET 1 ZESTRIL) 5 MG tablet BY MOUTH 9 EVERY DAY Active mirtazapine (REMERON) 15 Take one tab 0 MG tablet at night for 9 10 days then 2 tablets at night for ten days then 3 tablets at night Active gabapentin (NEURONTIN) TAKE 1 2 400 MG capsule CAPSULE BY 9 MOUTH THREE TIMES A DAY Active lorazepam (ATIVAN) 0.5 MG TAKE 1 TABLET 30 Tab 1 tablet BY MOUTH 9 EVERY DAY NEEDED FOR ANXIETY Active amitriptyline (ELAVIL) 10 Take 1 Tab by 30 Tab 5 MG tablet mouth 9 nightly. 02/01/2019 Discontinued Fluticasone-Salmeterol Inhale by 0 (ADVAIR HFA) 115-21 mouth. MCG/ACT AEROIndications: Essential hypertension, Dyslipidemia, Precordial pain, SU (dyspnea on exertion) documented as of this encounter (statuses as of 02/01/2019) Active Problems Problem Noted Date Psychogenic nonepileptic seizure 01/27/2018 Essential hypertension 12/23/2017 Precordial pain 11/30/2017 Altered gait 11/30/2017 Episodic altered awareness 02/19/2016 documented as of this encounter (statuses as of 02/01/2019) Social History Date Tobacco Use Types Packs/Day [...] Signs Reading Time Taken Comments Vital Sign 119/75 02/01/2019 1:39 PM CDT Blood Pressure 90 02/01/2019 1:39 PM CDT Pulse - - Temperature - - Respiratory Rate - - Oxygen Saturation - - Inhaled Oxygen Concentration 83.5 kg (184 lb) 02/01/2019 1:39 PM CDT Weight 160 cm (5' 3") 02/01/2019 1:39 PM CDT Height 32.59 02/01/2019 1:39 PM CDT Body Mass Index documented in this encounter Progress Notes * Yenifer Rosario DO - 02/01/2019 1:40 PM CDT Chief Complaint Patient presents with Follow Up pt also had seizures today HPI: John Nieto is a 63 y.o. year old female with history of pre-DM, HT N, HLD, chronic anxiety/depression and seizure-like episodes that have been dete rmined to be Psychogenic Nonepileptic Events. She has had her EEG 01/2016: showing 51 typical episodes with no epileptiform act ivities. MRI brain 01/2018: from [facility] w/wo - normal Past meds: topamax, keppra, Zoloft Currently: Neurontin She had her EMU stay 10/2017: with 50+ typical episodes and no epileptiform activ ity. 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 Patient has been havin g a lot of SOB and now has a CT scan planned. She was told to also see cardiolog y. She also has been having more headaches and usually after her seizure events. Her whole body feels numb and tingling all over. When it touches the sheet she f eels burning at the bottoms of her feet. She also feels hot all over. She is diaz ing Neurontin 400mg TID. She was taking Tylenol #3. This caused constipation and didn't seem to help with pain. She is seeing a pain specialist. She feels like she is being shocked. She feels like she can't control the events as well as she could in the past. She wants to know if she needs to be rechecke d. She doesn't like going to doctor's offices because it tires her out. Past Medical History: Diagnosis Date Glaucoma High blood sugar HLD (hyperlipidemia) HTN (hypertension) Kidney stone Sensorineural hearing loss acetaminophen-codeine (TYLENOL #3) 300-30 MG per tablet TAKE ONE (1) TABLET( S) BY MOUTH EVERY SIX HOURS NEEDED FOR PAIN. albuterol (PROVENTIL HFA) 108 (90 base) mcg/act inhaler Inhale 4 Puffs by [facility] two times daily. amlodipine (NORVASC) 5 MG tablet Take 5 mg by mouth daily. cefdinir (OMNICEF) 300 MG capsule Take 300 mg by mouth. Cetirizine HCl 10 MG CAPS Take by mouth. dicyclomine (BENTYL) 20 MG tablet Ergocalciferol (VITAMIN D2 OR) Take 50,000 Int'l Units by mouth every 7 days . famotidine (PEPCID) 20 MG tablet TAKE 1 TABLET BY MOUTH EVERY DAY Famotidine 20 MG CHEW Take by mouth. gabapentin (NEURONTIN) 400 MG capsule TAKE 1 CAPSULE BY MOUTH THREE TIMES A DAY hydrochlorothiazide (HYDRODIURIL) 25 MG tablet Take 25 mg by mouth. hydrOXYzine (ATARAX) 25 MG tablet Take 25 mg by mouth 3 times daily as neede d for Itching. lisinopril (PRINIVIL, ZESTRIL) 5 MG tablet TAKE 1 TABLET BY MOUTH EVERY DAY lorazepam (ATIVAN) 0.5 MG tablet TAKE 1 TABLET BY MOUTH EVERY DAY NEEDED FOR ANXIETY metformin (GLUCOPHAGE) 1000 MG tablet TAKE 1 TABLET BY MOUTH WITH A MEAL TWI CE A DAY mirtazapine (REMERON) 15 MG tablet Take one tab at night for 10 days then 2 tablets at night for ten days then 3 tablets at night montelukast (SINGULAIR) 10 MG tablet Take 10 mg by mouth daily. omeprazole (PRILOSEC) 40 MG capsule Take 40 mg by mouth daily. Review of Systems: all negative except as noted in HPI Constitutional:No weight change, fever, chills, fatigue Eyes:No diplopia, blurry vision, dry eyes Ears, Mouth, Nose, Throat:No hearing loss, tinnitus, dry mouth, vertigo Cardiovascular:No chest pain Respiratory:No difficulty breathing GI:No abdominal pain, constipation/diarrhea, nausea :No pain on urination, incontinence Skin/Teg:No rash, lacerations Musculoskeletal:No significant neck or back pain Psychiatric:No anxiety, depression Endocrine:No thyroid abnormalities, DM Hematologic:No anemia Immunologic:No recent infections Neurologic:See above Vital Signs: Vitals: 02/01/19 1339 BP: 119/75 BP Location: right arm Patient Position: Sitting Cuff Size: regular Pulse: 90 Weight: 184 lb (83.5 kg) Height: 5' 3" (1.6 m) NEUROLOGICAL EXAMINATION: GEN: NAD, intact attention and concentration Fundi: difficult to visualize due to patient cooperation Neck: no LAD, supple Mental status: Alert, oriented to person, place and time. Speech: no dysarthria Cranial Nerves: II:Acuity: deferred. PERRL, VFF III, IV, : EOMI V1-V3: decreased on left V1-3 VII: face symmetric VIII: intact to finger rub bilaterally IX, X: palate elevates equally and symmetrically XI: Shoulder shrug 5/5 XII: tongue movements symmetric and midline. Motor Examination - normal bulk and tone, no fasciculations noted in muscles R L Deltoids 5 5 Biceps 5 5 Triceps 5 5 Wrist Extension 5 5 Iliopsoas 5 5 Quadriceps 5 5 Hamstrings 5 5 Tibialis Anterior 5 5 Deep Tendon Reflexes toes downgoing bilaterally DTRs Bic Tric BR Pat Right 2+ 2+ 2+ 2+ Left 2+ 2+ 2+ 2+ Sensory Examination Decreased on left side Coordination Finger to nose testing: intact markell Gait and Station Comes in wheelchair Impression: John Nieto is a 63 y.o. year old female with pre-DM, HTN, HLD, kidney s tones, glaucoma, chronic anxiety/depression and seizure-like episodes that have been determined to be Psychogenic Nonepileptic Seizures. Patient has history of migraines as well. Neurontin has seemed to help in the past with pain control an d seizure control as well. Patient complains of continued headaches and whole tony dy pain. She also has been off any anti-depressants. Will add Elavil 10mg nightl y to help with all these symptoms. Today patient provided counseling about accep ting her diagnosis and not allowing others to stress her out. 1. Chronic migraine without aura, intractable, without status migrainosus 2. Psychogenic nonepileptic seizure Plan: 1. Elavil 10mg nightly 2. Neurontin 400mg TID Time spent: 30 minutes, > 75% spent in counseling and coordination of care CC: Markdarleen Pacheco [address] [place], [place] [address] [place] [address] Yenifer Rosario D.O. Kiosk Sales Representative Department of Neurology [facility] documented in this encounter Plan of Treatment Care Team Description Date Type Specialty Yenifer Rosario DO [address] [facility] 9th [address] [place] [address] 05/04/2019 Office Visit Neurology Health Maintenance Due Date Last Done Comments COLON CANCER SCREENIN1956 COLONOSCOPY TETANUS SHOT (ADULT) 02/23/1971 BMI FOLLOW UP PLAN 02/23/1974 HEPATITIS C SCREENING 02/23/1974 HIV SCREENING 02/23/1974 FLU VACCINE > 6 MONTHS 01/19/2019 07/07/2018 (Declined) MAMMOGRAM ANNUAL 08/08/2019 08/08/2018 CERVICAL CANCER SCREENING 08/02/2021 08/02/2018 3 YEAR FOLLOW UP documented as of this encounter Results Not on filedocumented in this encounter Visit Diagnoses Diagnosis Chronic migraine without aura, intractable, without status migrainosus - Primary Psychogenic nonepileptic seizure documented in this encounter Insurance Type Payer Benefit Subscriber ID Effective Phone Address Plan / Dates Group Medicaid [employer] xxxxxxxxx 2015- [address] [place] [id number] [place] [phone] (Home) DARLENE GARCIA [phone] documented as of this encounter
--- OUTSIDE RECORDS SUMMARY | 2019-06-09 13:25 | XMS REPORT | Summary of Care ---
Author Author [facility] - [facility] Organization [facility] - [facility] Address Unknown Phone Unavailable Care Team Providers Care Vice Admiral Name Role Phone Fabien Fernandes MD Unavailable Leena Bañuelosynpatricia MURILLO PCP Encounter Details Care Team Description Date Type Department Doctor Unassigned, [place] [address] [place] [address] 01/31/2019 Orders Only [facility] [address] [place] [address] Allergies Comments Active Allergy Reactions Severity Noted Date Azithromycin Itching 01/07/2019 Ciprofloxacin Rash 01/27/2018 Clindamycin Other - See Medium 10/05/2016 comments, Itching Clonazepam Itching, Medium 11/23/2017 Rash, Swelling All steroids-muscle weakness t Corticosteroids Rash 01/20/2016 (Glucocorticoids) Iodine Rash 10/05/2016 Lincomycin Rash Medium 09/15/2017 Nitrofurantoin Rash 01/27/2018 steroid Other [place]-3s Anaphylaxis 01/27/2018 States it would be fatal Penicillins Other - See High 01/20/2016 comments, Shortness of Breath Sulfa (Sulfonamide Other - See 01/20/2016 Antibiotics) comments, Swelling New string of tetanus- went to ER , medication for throat closing up Tetanus Vaccines And Swelling High 01/20/2016 Toxoid documented as of this encounter (statuses as of 02/02/2019) Medications End Date Status Medication Sig Dispensed [...] as of this encounter (statuses as of 02/02/2019) Active Problems Problem Noted Date Chronic lumbar radiculopathy 01/12/2019 Overview: Added automatically from request for surgery [id number] 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/12/2019 Overview: Added automatically from request for surgery [id number] Obesity (BMI 30-39.9) 12/16/2018 Recurrent UTI 05/17/2018 [...] as of this encounter (statuses as of 02/02/2019) Resolved Problems Problem Noted Date Resolved Date 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/12/2019 01/16/2019 Overview: Added automatically from request for surgery [id number] documented as of this encounter (statuses as of 02/02/2019) Immunizations Name Administration Dates Next Due Influenza [...] Treatment Care Team Description Date Type Specialty Augusto Juanita, PT 02/03/2019 Ancillary Visit Physical Therapy Dieter Zhou MD [address] [facility] [id number] [place], [place] [address] 02/04/2019 Appointment Radiology Sukh Harris MD [address] [facility] [id number] [place], [place] [phone] 02/09/2019 Office Visit Pain Medicine Gerber Ni [address] [facility] [id number] [place], [place] [phone] 02/21/2019 Office Visit Obstetrics & Gynecology Zoila Rodas AGNP [address] [place] [address] [phone] 03/01/2019 Office Visit Nephrology Test, Vtc Pulmonary Function 03/07/2019 Meat Boner Pulmonary Function Visit Technologist Sukh Harris MD [address] [facility] [id number] [place] [address] [phone] 03/23/2019 Office Visit Pain Medicine Dieter Zhou MD [address] [facility] [id number] [place] [address] [phone] 07/05/2019 Office Visit Pulmonary Disease Health Maintenance Due Date Last Done Comments HEPATITIS C (HCV) SCREEN 1955 DTaP,Tdap,and Td Vaccines 02/23/1975 (1 - Tdap) COLONOSCOPY 02/23/2006 Zoster Recombinant 02/23/2006 Vaccine (SHINGRIX) (1 of 2) INFLUENZA VACCINE 02/19/2019 04/19/2018, 03/21/2017 (Retired version) MAMMOGRAM 08/08/2019 08/08/2018 PAP SMEAR 08/02/2021 08/02/2018 PNEUMOCOCCAL 0-64 YEARS Aged Out No longer eligible based COMBINED SERIES on patient's age to complete this topic documented as of this encounter Procedures Comments Procedure Name Priority Date/Time Associated Diagnosis PATIENT QUESTIONNAIRE Routine 01/31/2019 12:01 AM CDT documented in this encounter Results Not on filedocumented in this encounter Insurance Type Payer Benefit Subscriber ID Effective Phone Address Plan / Dates Group Medicaid [employer] [place] xxxxxxxxx 2015-P PLAN - MANAGED MEDICAID STAR PLUS resent documented as of this encounter
--- OUTSIDE RECORDS SUMMARY | 2019-06-09 13:25 | XMS REPORT | Summary of Care ---
Author Author [facility] - Health Organization [facility] - Health Address Unknown Phone Unavailable Care Team Providers Care Business Analytics Specialist Name Role Phone Fabien Fernandes MD Unavailable Leena Bañuelosynpatricia MURILLO PCP Reason for Visit * Reason Comments LOW BACK PAIN Encounter Details Care Team Description Date Type Department Sukh Harris MD [address] [id number] [place] [address] Spondylosis of lumbar region without myelopathy or radiculopathy (Primary Dx) 02/09/2019 Office Visit [facility] - [address], [address] [place] [address] Allergies Comments Active Allergy Reactions Severity Noted Date Azithromycin Itching 01/07/2019 Ciprofloxacin Rash 01/27/2018 Clindamycin Other - See Medium 10/05/2016 comments, Itching Clonazepam Itching, Medium 11/23/2017 Rash, Swelling All steroids-muscle weakness t Corticosteroids Rash 01/20/2016 (Glucocorticoids) Iodine Rash 10/05/2016 Lincomycin Rash Medium 09/15/2017 Nitrofurantoin Rash 01/27/2018 steroid Other [place]-3s Anaphylaxis 01/27/2018 States it would be fatal Penicillins Other - See High 01/20/2016 comments, Shortness of Breath Sulfa (Sulfonamide Other - See 01/20/2016 Antibiotics) comments, Swelling New string of tetanus- went to ER , medication for throat closing up Tetanus Vaccines And Swelling High 01/20/2016 Toxoid documented as of this encounter (statuses as of 02/09/2019) Medications End Date Status Medication Sig Dispensed [...] mg tablet 0 9 Active CBD oil (Ne[employer]S HOPE) Take by 0 20:1 with safflower [...] as of this encounter (statuses as of 02/09/2019) Active Problems Problem Noted Date Chronic lumbar radiculopathy 01/12/2019 Overview: Added automatically from request for surgery [id number] 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/12/2019 Overview: Added automatically from request for surgery [id number] Obesity (BMI 30-39.9) 12/16/2018 Recurrent UTI 05/17/2018 [...] as of this encounter (statuses as of 02/09/2019) Resolved Problems Problem Noted Date Resolved Date 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/12/2019 01/16/2019 Overview: Added automatically from request for surgery [id number] documented as of this encounter (statuses as of 02/09/2019) Immunizations Name Administration Dates Next Due Influenza [...] Signs Reading Time Taken Comments Vital Sign 116/78 02/09/2019 1:21 PM CDT Blood Pressure 89 02/09/2019 1:21 PM CDT Pulse - - Temperature - - Respiratory Rate - - Oxygen Saturation - - Inhaled Oxygen Concentration 82.6 kg (182 lb) 02/09/2019 1:21 PM CDT Weight 154.9 cm (5' 1") 02/09/2019 1:21 PM CDT Height 34.39 02/09/2019 1:21 PM CDT Body Mass Index documented in this encounter Progress Notes * Sukh Harris MD - 02/09/2019 1:00 PM CDT Chief Complaint:back pain in remission after the injection of medial branch ordonez pplying the facets on the right side History of Present illness: John Nieto is [...] and presents today for evaluation to that end.She recently had injection of medial branch supplying the facets o n the right side and re[ported significant relief of her back pain. Location: generalized through the lower back, but [...] 10=worst pain imaginable): Best:3/10 Worst: 10/10 Now: 7/10 CURRENT PAIN REGIMEN: -Tylenol #3 one tablet [...] Wt 177 lb (80.3 kg) | BMI 33.4 4 kg/m Body mass index is 33.44 kg/m. [...] Follow Up: Right lumbar medial branch blocks RFTC at L2 -L3 , L3-L4 and L4-L5 levels on 28t h of January 2019 documented in this encounter Plan of Treatment Care Team Description Date Type Specialty Dieter Zhou MD [address] [facility] [id number] [place], [place] [phone] Test, Vtc Pulmonary Function 02/10/2019 Cable Systems Installer Pulmonary Function Visit Technologist Gerber Ni [address] [facility] [id number] [place], [place] [phone] 02/21/2019 Office Visit Obstetrics & Gynecology Zoila Rodas AGNP [address] [place], [place] [phone] 03/01/2019 Office Visit Nephrology Mio Castro MD [address] [place] [address] [place] [address] [phone] 04/26/2019 Office Visit Cardiology Dieter Zhou MD [address] [id number] [place], [place] [address] 07/05/2019 Office Visit Pulmonary Disease Sukh Harris MD [address] [id number] [place], [place] [address] 07/13/2019 Office Visit Pain Medicine Health Maintenance Due [...] radiculopathy - Primary Lumbosacral spondylosis without myelopathy documented in this encounter Insurance Type Payer Benefit Subscriber ID Effective Phone Address Plan / Dates Group Medicaid [employer] [place] xxxxxxxxx 2015-P PLAN - MANAGED MEDICAID STAR PLUS resent documented as of this encounter
--- OUTSIDE RECORDS SUMMARY | 2019-06-09 13:25 | XMS REPORT | Summary of Care ---
Author Author [facility] - Health Organization [facility] - Health Address Unknown Phone Unavailable Care Team Providers Care Clay Press Operator Name Role Phone Fabien Fernandes MD Unavailable Leena Bañuelosynh PCP Reason for Referral * MRI/CAT Scan (Routine) Referred By Contact Referred To Contact Status Reason Specialty Diagnoses / Procedures Dieter Zhou MD [address] [place] [address] [address] Closed Diagnostic Diagnoses Radiology Lung nodule P rocedures CT LOW DOSE LUNG NODULE * MRI/CAT Scan (Routine) Referred By Contact Referred To Contact Status Reason Specialty Diagnoses / Procedures Dieter Zhou MD [address] [place] [address] [address] Closed Diagnostic Diagnoses Radiology Lung nodule P rocedures CT LOW DOSE LUNG NODULE Reason for Visit * MRI/CAT Scan (Routine) Referred By Contact Referred To Contact Status Reason Specialty Diagnoses / Procedures Dieter Zhou MD [address] [facility] [address] [address] Closed Diagnostic Diagnoses Radiology Lung nodule P rocedures CT LOW DOSE LUNG NODULE Encounter Details Care Team Description Date Type Department Dieter Zhou MD [address] [facility] [address] [address] Arrived 02/04/[address] [facility] Encounter [facility] [address] [place] [phone] Allergies Comments Active Allergy Reactions Severity Noted Date Azithromycin Itching 01/07/2019 Ciprofloxacin Rash 01/27/2018 Clindamycin Other - See Medium 10/05/2016 comments, Itching Clonazepam Itching, Medium 11/23/2017 Rash, Swelling All steroids-muscle weakness t Corticosteroids Rash 01/20/2016 (Glucocorticoids) Iodine Rash 10/05/2016 Lincomycin Rash Medium 09/15/2017 Nitrofurantoin Rash 01/27/2018 steroid Other [place]-3s Anaphylaxis 01/27/2018 States it would be fatal Penicillins Other - See High 01/20/2016 comments, Shortness of Breath Sulfa (Sulfonamide Other - See 01/20/2016 Antibiotics) comments, Swelling New string of tetanus- went to ER , medication for throat closing up Tetanus Vaccines And Swelling High 01/20/2016 Toxoid documented as of this encounter (statuses as of 02/05/2019) Medications End Date Status Medication Sig Dispensed [...] as of this encounter (statuses as of 02/05/2019) Active Problems Problem Noted Date Chronic lumbar radiculopathy 01/12/2019 Overview: Added automatically from request for surgery [id number] 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/12/2019 Overview: Added automatically from request for surgery [id number] Obesity (BMI 30-39.9) 12/16/2018 Recurrent UTI 05/17/2018 [...] as of this encounter (statuses as of 02/05/2019) Resolved Problems Problem Noted Date Resolved Date 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/12/2019 01/16/2019 Overview: Added automatically from request for surgery [id number] documented as of this encounter (statuses as of 02/05/2019) Immunizations Name Administration Dates Next Due Influenza [...] Date Type Specialty Sukh Harris MD [address] [address] 02/09/2019 Office Visit Pain Medicine Gerber Ni [address] [facility] [id number] [place] [phone] 02/21/2019 Office Visit Obstetrics & Gynecology Zoila Rodas AGNP [address] [place] [phone] 03/01/2019 Office Visit Nephrology Test, Vtc Pulmonary Function 03/07/2019 Coater Brake Linings Pulmonary Function Visit Technologist Sukh Harris MD [address] [phone] 03/23/2019 Office Visit Pain Medicine Mio Catsro MD [address] [phone] 04/26/2019 Office Visit Cardiology Dieter Zhou MD [address] [facility] [id number] [place] [phone] 07/05/2019 Office Visit Pulmonary Disease Date/Time Name Type Priority Associated Diagnoses 02/04/2019 9:[address] LOW DOSE LUNG NODULE IMAGING Routine Lung nodule Order Schedule Name Type Priority Associated Diagnoses 1 Occurrences starting 02/04/2019 until 02/04/2019 CT LOW DOSE LUNG NODULE IMAGING Routine Lung nodule Health Maintenance Due Date Last Done Comments [...] filedocumented in this encounter Visit Diagnoses Diagnosis Lung nodule Solitary pulmonary nodule documented in this encounter Insurance Type Payer Benefit Subscriber ID Effective Phone Address Plan / Dates Group Medicaid [employer] [place] xxxxxxxxx 2015-P PLAN - MANAGED MEDICAID STAR PLUS resent documented as of this encounter
--- OUTSIDE RECORDS SUMMARY | 2019-06-09 13:25 | XMS REPORT | Summary of Care ---
Author Author [facility] - Health Organization [facility] - Health Address Unknown Phone Unavailable Care Team Providers Care Director Compliance Name Role Phone Mark Pacheco MD PCP Fabien Fernandes MD Unavailable Leena Bañuelos DO PCP Encounter Details Care Team Description Date Type Department Doctor Unassigned, [place] [address] [place] [address] 11/29/2018 Orders Only [facility] [address] [place] [address] Allergies Comments Active Allergy Reactions Severity Noted Date Azithromycin Itching 01/07/2019 Ciprofloxacin Rash 01/27/2018 Clindamycin Other - See Medium 10/05/2016 comments, Itching Clonazepam Itching, Medium 11/23/2017 Rash, Swelling All steroids-muscle weakness t Corticosteroids Rash 01/20/2016 (Glucocorticoids) Iodine Rash 10/05/2016 Lincomycin Rash Medium 09/15/2017 Nitrofurantoin Rash 01/27/2018 steroid Other [place]-3s Anaphylaxis 01/27/2018 States it would be fatal Penicillins Other - See High 01/20/2016 comments, Shortness of Breath Sulfa (Sulfonamide Other - See 01/20/2016 Antibiotics) comments, Swelling New string of tetanus- went to ER , medication for throat closing up Tetanus Vaccines And Swelling High 01/20/2016 Toxoid documented as of this encounter (statuses as of 02/08/2019) Medications End Date Status Medication Sig Dispensed [...] tablet 0 BY MOUTH 9 EVERY DAY documented as of this encounter (statuses as of 02/08/2019) Active Problems Problem Noted Date Chronic lumbar radiculopathy 01/12/2019 Overview: Added automatically from request for surgery [id number] 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/12/2019 Overview: Added automatically from request for surgery [id number] Obesity (BMI 30-39.9) 12/16/2018 Recurrent UTI 05/17/2018 [...] as of this encounter (statuses as of 02/08/2019) Resolved Problems Problem Noted Date Resolved Date 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/12/2019 01/16/2019 Overview: Added automatically from request for surgery [id number] documented as of this encounter (statuses as of 02/08/2019) Immunizations Name Administration Dates Next Due Influenza [...] Date Type Specialty Sukh Harris MD [address] [phone] 02/09/2019 Office Visit Pain Medicine Dieter Zhou MD [address] [phone] Test, Vt Pulmonary Function 02/10/2019 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 Pulmonary Function Visit Technologist Gerber Ni [address] [place] [address] [phone] 02/21/2019 Office Visit Obstetrics & Gynecology Zoila Rodas AGNP [address] [place] [address] [phone] 03/01/2019 Office Visit Nephrology Sukh Harris MD [address] [phone] 03/23/2019 Office Visit Pain Medicine Mio Castro MD [address] [phone] 04/26/2019 Office Visit Cardiology Dieter Zhou MD [address] [phone] 07/05/2019 Office Visit Pulmonary Disease Health Maintenance [...] Comments Procedure Name Priority Date/Time Associated Diagnosis DME/SUPPLY JUSTIFICATION Routine 11/29/2018 12:01 AM CDT documented in this encounter Results Not on filedocumented in this encounter Insurance Type Payer Benefit Subscriber ID Effective Phone Address Plan / Dates Group Medicaid [employer] COMM [place]HC [place] xxxxxxxxx 2015-P PLAN - MANAGED MEDICAID STAR PLUS resent documented as of this encounter
--- OUTSIDE RECORDS SUMMARY | 2019-06-09 13:26 | XMS REPORT | Summary of Care ---
Author Author [facility] - Health Organization [facility] - Health Address Unknown Phone Unavailable Care Team Providers Care Dental Surgeon Name Role Phone Fabien Fernandes MD Unavailable Leena Bañuelosynh PCP Reason for Referral * (Routine) Referred By Contact Referred To Contact Status Reason Specialty Diagnoses / Procedures Sukh Harris MD 301 [employer] [address] [address] New Request Diagnostic Diagnoses Radiology Spondylosis of lumbar region without myelopathy or radiculopathy P rocedures FL TIME OR (NON-REPORTABLE) * (Routine) Referred By Contact Referred To Contact Status Reason Specialty Diagnoses / Procedures Sukh Harris MD 301 [facility] [employer] [address] [address] New Request Diagnostic Diagnoses Radiology Spondylosis of lumbar region without myelopathy or radiculopathy P rocedures FL TIME OR (NON-REPORTABLE) Reason for Visit * Auth/Cert Referred By Contact Referred To Contact Status Reason Specialty Diagnoses / Procedures Encounter Details Care Team Description Date Type Department Sukh Harris MD 301 [facility] [employer] [address] [address] Spondylosis of lumbar region without myelopathy or radiculopathy 02/15/2019 Hospital [facility] Encounter Post Anesthesia Care Unit [address] [place] [address] Allergies Comments Active Allergy Reactions Severity Noted Date Azithromycin Itching 01/07/2019 Ciprofloxacin Rash 01/27/2018 Clindamycin Other - See Medium 10/05/2016 comments, Itching Clonazepam Itching, Medium 11/23/2017 Rash, Swelling All steroids-muscle weakness t Corticosteroids Rash 01/20/2016 (Glucocorticoids) Iodine Rash 10/05/2016 Lincomycin Rash Medium 09/15/2017 Nitrofurantoin Rash 01/27/2018 steroid Other [place]-3s Anaphylaxis 01/27/2018 States it would be fatal Penicillins Other - See High 01/20/2016 comments, Shortness of Breath Sulfa (Sulfonamide Other - See 01/20/2016 Antibiotics) comments, Swelling New string of tetanus- went to ER , medication for throat closing up Tetanus Vaccines And Swelling High 01/20/2016 Toxoid documented as of this encounter (statuses as of 02/15/2019) Medications End Date Status Medication Sig Dispensed [...] as of this encounter (statuses as of 02/15/2019) Active Problems Problem Noted Date Chronic lumbar radiculopathy 01/12/2019 Overview: Added automatically from request for surgery [id number] 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/12/2019 Overview: Added automatically from request for surgery [id number] Obesity (BMI 30-39.9) 12/16/2018 Recurrent UTI 05/17/2018 [...] as of this encounter (statuses as of 02/15/2019) Resolved Problems Problem Noted Date Resolved Date 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/12/2019 01/16/2019 Overview: Added automatically from request for surgery [id number] documented as of this encounter (statuses as of 02/15/2019) Immunizations Name Administration Dates Next Due Influenza [...] Signs Reading Time Taken Comments Vital Sign 165/97 02/15/2019 2:40 PM CDT Blood Pressure 62 02/15/2019 2:40 PM CDT Pulse 36.7 C (98 F) 02/15/2019 1:55 PM CDT Temperature 16 02/15/2019 1:55 PM CDT Respiratory Rate 97% 02/15/2019 2:40 PM CDT Oxygen Saturation - - Inhaled Oxygen Concentration 83.5 kg (184 lb) 02/15/2019 12:02 PM CDT Weight 162.6 cm (5' 4") 02/15/2019 12:02 PM CDT Height 31.58 02/15/2019 12:02 PM CDT Body Mass Index documented in this encounter Discharge Instructions * Instructions* Reema Ramirez, RN - 02/15/2019 Pain Discharge Instructions 1. Activity as tolerated. [...] changes or any other concerns or questions. 8. If you are a diabetic, please monitor your blood sugars more closely for one week following your injection. Steroid injections can cause an increase in your blood sugar level. Please contact your physician if you need additional hero tance in managing a high blood sugar level following your procedure. Contact Information Pain Management [facility] ~ Daytime: [phone] After Hours: [facility] Access Line [phone] and ask to speak to the Nurse [...] and pain.? Preventing a surgical site infection:o Dont smo ke. It is best to quit at [...] on smokin g and how to quit- [place] [employer] - http://www.lungusa.org/stop-smoking/ [place] [employer] - http://www.cancer.org/Healthy/StayAwayfromTobacco/i ndex [place] [employer] - http://www.heart.org/HEARTORG/GettingHealthy/Jamil tSmoking/Quit-Smoking_[facility]_001085_SubHomePage.jsp documented in this encounter Plan of Treatment Care Team Description Date Type Specialty Gerber Ni 301 [facility] [place], [place] [address] 02/21/2019 Office Visit Obstetrics & Gynecology Zoila Rodas AGNP [address] [place] [phone] 03/01/2019 Office Visit Nephrology Mio Castro MD [address] [phone] 04/26/2019 Office Visit Cardiology Dietre Zhou MD 301 [facility] [id number] [place], [place] [address] 07/05/2019 Office Visit Pulmonary Disease Sukh Harris MD 301 [facility] [id number] [place], [place] [address] 07/13/2019 Office Visit Pain Medicine Order Schedule Name Type Priority Associated Diagnoses ONCE for 1 Occurrences starting 02/15/2019 until 02/15/2019 POCT Glucose LAB Routine Health Maintenance Due Date Last Done Comments [...] Date/Time Associated Diagnosis FL TIME OR Routine 02/15/2019 Spondylosis of lumbar (NON-REPORTABLE) 1:50 PM CDT region without myelopathy or radiculopathy CONSENT/REFUSAL FOR Routine 02/15/2019 DIAGNOSIS AND TREATMENT 10:55 AM CDT ASSIGNMENT OF BENEFITS Routine 02/15/2019 10:54 AM CDT documented in this encounter Results * FL TIME OR (NON-REPORTABLE) (02/15/2019 1:50 PM CDT) Specimen Narrative Performed At These images do not require a Radiology diagnostic report. PACS Performing Organization Address City/State/Zipcode Phone Number PACS documented in this encounter Visit Diagnoses Diagnosis Spondylosis of lumbar region without myelopathy or radiculopathy Lumbosacral spondylosis without myelopathy documented in this encounter Administered Medications Action Date Dose Rate Site Medication Order MAR Action 02/15/2019 2:02 PM CDT 1 tablet HYDROcodone-acetaminophen (NORCO 5) Given 5-325 mg tablet 1 tablet 1 tablet, Oral, PRN, Starting Wed02/15/19 at 1356, Until Discontinued, Routine, Pain (scale 4-6), PACU lactated ringers IV infusion 500 mL at 75 mL/hr, 500 mL, IV Infusion, CONTINUOUS, Starting Wed02/15/19 at 1400, Until Discontinued, Routine, PACU lactated ringers IV infusion 500 mL at 42 mL/hr, 500 mL, IV Infusion, CONTINUOUS, Starting Wed02/15/19 at 1400, Until Discontinued, Routine, PACU 02/15/2019 1:36 PM CDT 4 mL lidocaine 1% (PF) (XYLOCAINE) injection Given PRN, Starting Wed02/15/19 at 1336, Until Discontinued, Routine, Intra-op 02/15/2019 1:29 PM CDT 2 mL lidocaine PF 2% (XYLOCAINE-MPF) Given injection PRN, Starting Wed02/15/19 at 1329, Until Discontinued, Routine, Intra-op 02/15/2019 2:03 PM CDT 2 mg morpHINE injection 2 mg Given 2 mg, Slow IV Push, Q5MIN PRN, 5 doses, Starting Wed02/15/19 at 1356, Until Discontinued, Routine, Pain (scale 4-6), PACU morpHINE injection 4 mg 4 mg, Slow IV Push, Q5MIN PRN, 2 doses, Starting Wed02/15/19 at 1356, Until Discontinued, Routine, Pain (scale 7-10), PACU 02/15/2019 1:29 PM CDT 20 mL NaCl 0.9% (NS) injection Given PRN, Starting Wed02/15/19 at 1329, Until Discontinued, Routine, Intra-op ondansetron (ZOFRAN (PF)) injection 4 mg 4 mg, Slow IV Push, PRN, 1 dose, Starting Wed02/15/19 at 1356, Until Discontinued, Routine, Nausea and Vomiting (N/V), PACU Action Date Dose Rate Site Medication Order MAR Action 02/15/2019 11:47 AM CDT 500 mL 20 mL/hr lactated ringers IV infusion 1,000 mL New Bag at 20 mL/hr, 1,000 mL, IV Infusion, ONCE, 1 dose, Wed02/15/19 at 1130, Routine, DSU Pre-op documented in this encounter Insurance Type Payer Benefit Subscriber ID Effective Phone Address Plan / Dates Group Medicaid [employer] COMM UHC [place] xxxxxxxxx 2015-P PLAN - MANAGED MEDICAID STAR PLUS resent documented as of this encounter
--- OUTSIDE RECORDS SUMMARY | 2019-06-09 13:26 | XMS REPORT | Summary of Care ---
Author Author [facility] - Health Organization [facility] - Health Address Unknown Phone Unavailable Care Team Providers Care Piece Hand Name Role Phone Fabien Fernandes MD Unavailable Leena Bañuelosynpatricia MURILLO PCP Reason for Visit * Reason Comments LOW BACK PAIN Encounter Details Care Team Description Date Type Department Sukh Harris MD [address] [id number] [place] [address] Spondylosis of lumbar region without myelopathy or radiculopathy (Primary Dx) 02/09/2019 Office Visit [facility] Pain Management - [address], [address] [place] [address] Allergies Comments Active Allergy Reactions Severity Noted Date Azithromycin Itching 01/07/2019 Ciprofloxacin Rash 01/27/2018 Clindamycin Other - See Medium 10/05/2016 comments, Itching Clonazepam Itching, Medium 11/23/2017 Rash, Swelling All steroids-muscle weakness t Corticosteroids Rash 01/20/2016 (Glucocorticoids) Iodine Rash 10/05/2016 Lincomycin Rash Medium 09/15/2017 Nitrofurantoin Rash 01/27/2018 steroid Other [place]-3s Anaphylaxis 01/27/2018 States it would be fatal [...] mg tablet 0 9 Active CBD oil ([employer]'S HOPE) Take by 0 20:1 with safflower [...] Overview: Added automatically from request for surgery [id number] 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/12/2019 Overview: Added automatically from request for surgery [id number] Obesity (BMI 30-39.9) 12/16/2018 Recurrent UTI 05/17/2018 [...] Overview: Added automatically from request for surgery [id number] documented as of this encounter (statuses as [...] Date Type Specialty Dieter Zhou MD 301 [facility] [id number] [place], [place] [phone] Test, Vtc Pulmonary Function 02/10/2019 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
--- OUTSIDE RECORDS SUMMARY | 2019-06-09 13:26 | XMS REPORT | Summary of Care ---
Author Author [facility] - Health Organization [facility] - Health Address Unknown Phone Unavailable Care Team Providers Care Welder Apprentice Gas Name Role Phone Fabien Fernandes MD Unavailable BañuelosLeena Alberta PCP Encounter Details Care Team Description Date Type Department Dieter Zhou MD 301 [facility] [id number] [place] [address] [phone] 02/10/2019 Orders Only [facility] [address] [place] [phone] Allergies Comments Active Allergy Reactions Severity Noted Date Azithromycin Itching 01/07/2019 Ciprofloxacin Rash 01/27/2018 Clindamycin Other - See Medium 10/05/2016 comments, Itching Clonazepam Itching, Medium 11/23/2017 Rash, Swelling All steroids-muscle weakness t Corticosteroids Rash 01/20/2016 (Glucocorticoids) Iodine Rash 10/05/2016 Lincomycin Rash Medium 09/15/2017 Nitrofurantoin Rash 01/27/2018 steroid Other [place]-3s Anaphylaxis 01/27/2018 States it would be fatal Penicillins Other - See High 01/20/2016 comments, Shortness of Breath Sulfa (Sulfonamide Other - See 01/20/2016 Antibiotics) comments, Swelling New string of tetanus- went to ER , medication for throat closing up Tetanus Vaccines And Swelling High 01/20/2016 Toxoid documented as of this encounter (statuses as of 02/13/2019) Medications End Date Status Medication Sig Dispensed [...] mouth 3 9 Dysuria (three) times daily. Status Hospital, Clinic, or Ordered Dose Route Frequency Start End Date Other Facility Date Administered Medication Active lactated ringers IV 1000 mL IV Infusion CONTINUOUS 02/10/20 infusion 1,000 mL 19 documented as of this encounter (statuses as of 02/13/2019) Active Problems Problem Noted Date Chronic lumbar radiculopathy 01/12/2019 Overview: Added automatically from request for surgery [id number] 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/12/2019 Overview: Added automatically from request for surgery [id number] Obesity (BMI 30-39.9) 12/16/2018 Recurrent UTI 05/17/2018 [...] as of this encounter (statuses as of 02/13/2019) Resolved Problems Problem Noted Date Resolved Date 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/12/2019 01/16/2019 Overview: Added automatically from request for surgery [id number] documented as of this encounter (statuses as of 02/13/2019) Immunizations Name Administration Dates Next Due Influenza [...] Date Type Specialty Sukh Harris MD 301 [facility] [id number] [place] [address] Spondylosis of lumbar region without myelopathy or radiculopathy 02/15/2019 Hospital Surgery Encounter Alisa Mejía RN 02/15/2019 Anesthesia Surgery Event Sukh Harris MD 301 [facility] [id number] [place], [place] [address] RADIOFREQUENCY THERMOCOAGULATION 02/15/2019 Surgery Surgery Gerber Ni 301 [facility] [id number] [place], [place] [address] 02/21/2019 Office Visit Obstetrics & Gynecology Zoila Rodas AGNP 301 [place], [place] [address] 03/01/2019 Office Visit Nephrology Mio Castro MD [address] [phone] 04/26/2019 Office Visit Cardiology Dieter Zhou MD 301 [facility] [id number] [place], [place] [address] 07/05/2019 Office Visit Pulmonary Disease Sukh Harris MD 301 [facility] [id number] [place], [place] [address] 07/13/2019 Office Visit Pain Medicine Health Maintenance [...] Comments Procedure Name Priority Date/Time Associated Diagnosis PULMONARY FUNCTION TEST Routine 02/10/2019 (RESULTS) 11:14 AM CDT documented in this encounter Results Not on filedocumented in this encounter Insurance Type Payer Benefit Subscriber ID Effective Phone Address Plan / Dates Group Medicaid [employer] COMM [employer]HC [place] xxxxxxxxx 2015-P PLAN - MANAGED MEDICAID STAR PLUS resent documented as of this encounter
--- OUTSIDE RECORDS SUMMARY | 2019-06-09 13:26 | XMS REPORT | Summary of Care ---
Author Author [facility] - Health Organization [facility] - Health Address Unknown Phone Unavailable Care Team Providers Care Mosaic Tile Maker Name Role Phone Fabien Fernandes MD Unavailable Leena Bañuelosynpatricia MURILLO PCP Reason for Visit * Reason Comments LOW BACK PAIN Encounter Details Care Team Description Date Type Department Sukh Harris MD [address] [id number] [place] [address] Spondylosis of lumbar region without myelopathy or radiculopathy (Primary Dx) 02/09/2019 Office Visit [facility] Pain Management - [address], [address] [place] [address] Allergies Comments Active Allergy Reactions [...] mg tablet 0 9 Active CBD oil ([employer]S HOPE) Take by 0 20:1 with safflower [...] Overview: Added automatically from request for surgery [id number] 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/12/2019 Overview: Added automatically from request for surgery [id number] Obesity (BMI 30-39.9) 12/16/2018 Recurrent UTI 05/17/2018 [...] Overview: Added automatically from request for surgery [id number] documented as of this encounter (statuses as [...] Date Type Specialty Dieter Zhou MD 301 [facility] [id number] [place], [place] [phone] Test, Vtc Pulmonary Function 02/10/2019 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 Pulmonary Function Visit Technologist Gerber Ni [address] [place] [address] [id number] [place], [place] [phone] 02/21/2019 Office Visit Obstetrics & Gynecology Zoila Rodas AGNP [address] [place] [phone] 03/01/2019 Office Visit Nephrology Mio Castro MD [address] [place] [phone] 04/26/2019 Office Visit Cardiology Dieter Zhou MD [address] [id number] [place], [place] [phone] 07/05/2019 Office Visit Pulmonary Disease Sukh Harris MD [address] [id number] [place] [address] 07/13/2019 Office Visit Pain Medicine Order Schedule Name Type Priority Associated Diagnoses ONCE for 1 Occurrences starting 02/09/2019 until 02/09/2019 CASE REQUEST: PROCEDURES Routine Spondylosis of lumbar RADIOFREQUENCY region without myelopathy THERMOCOAGULATION or radiculopathy Health Maintenance Due Date Last Done Comments [...]
--- OUTSIDE RECORDS SUMMARY | 2019-06-09 13:26 | XMS REPORT | Summary of Care ---
Author Author [facility] - Health Organization [facility] - Health Address Unknown Phone Unavailable Care Team Providers Care Mobile Sales Technician Name Role Phone Fabien Fernandes MD Unavailable Leena Bañuelos DO PCP Reason for Visit * Reason Comments Forms Encounter Details Care Team Description Date Type Department Isak Butt [address] [phone] Forms 02/15/2019 Telephone [facility] Internal Medicine- [facility]ty Ctr [address] [place] [address] Allergies Comments Active Allergy Reactions Severity Noted Date Azithromycin Itching 01/07/2019 Ciprofloxacin Rash 01/27/2018 Clindamycin Other - See Medium 10/05/2016 comments, Itching Clonazepam Itching, Medium 11/23/2017 Rash, Swelling All steroids-muscle weakness t Corticosteroids Rash 01/20/2016 (Glucocorticoids) Iodine Rash 10/05/2016 Lincomycin Rash Medium 09/15/2017 Nitrofurantoin Rash 01/27/2018 steroid Other [place]-3s Anaphylaxis 01/27/2018 States it would be fatal [...] mg tablet 0 9 Active CBD oil ([employer]'S HOPE) Take by 0 20:1 with safflower [...] Overview: Added automatically from request for surgery [id number] 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/12/2019 Overview: Added automatically from request for surgery [id number] Obesity (BMI 30-39.9) 12/16/2018 Recurrent UTI 05/17/2018 [...] Overview: Added automatically from request for surgery [id number] documented as of this encounter (statuses as [...] Description Date Type Specialty Gerber Ni 301 [facility] [id number] [place] [address] 02/21/2019 Office Visit Obstetrics & Gynecology Zoila Rodas AGNP [address] [place] [address] 03/01/2019 Office Visit Nephrology Mio Castro MD [address] [place] [phone] 04/26/2019 Office Visit Cardiology Dieter Zhou MD [address] [id number] [place], [place] [phone] 07/05/2019 Office Visit Pulmonary Disease Sukh Harris MD [address] [id number] [place] [address] 07/13/2019 Office Visit Pain Medicine Health Maintenance [...]
--- OUTSIDE RECORDS SUMMARY | 2019-06-09 13:26 | XMS REPORT | Summary of Care ---
Author Author [facility] - Health Organization [facility] - Health Address Unknown Phone Unavailable Care Team Providers Care Remote Pilot Operator Name Role Phone Fabien Fernandes MD Unavailable Leena Bañuelosynpatricia MURILLO PCP Encounter Details Care Team Description Date Type Department Doctor Unassigned, [place] [address] [place] [address] 02/15/2019 Orders Only [facility] [address] [place] [address] Allergies Comments Active Allergy Reactions Severity Noted Date Azithromycin Itching 01/07/2019 Ciprofloxacin Rash 01/27/2018 Clindamycin Other - See Medium 10/05/2016 comments, Itching Clonazepam Itching, Medium 11/23/2017 Rash, Swelling All steroids-muscle weakness t Corticosteroids Rash 01/20/2016 (Glucocorticoids) Iodine Rash 10/05/2016 Lincomycin Rash Medium 09/15/2017 Nitrofurantoin Rash 01/27/2018 steroid Other [place]-3s Anaphylaxis 01/27/2018 States it would be fatal [...] Overview: Added automatically from request for surgery [id number] 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/12/2019 Overview: Added automatically from request for surgery [id number] Obesity (BMI 30-39.9) 12/16/2018 Recurrent UTI 05/17/2018 [...] Overview: Added automatically from request for surgery [id number] documented as of this encounter (statuses as [...] Description Date Type Specialty Gerber Ni [address] [facility] [id number] [place], [place] [phone] 02/21/2019 Office Visit Obstetrics & Gynecology Zoila Rodas AGNP [address] [place] [phone] 03/01/2019 Office Visit Nephrology Mio Castro MD [address] MACK [address] [place] [phone] 04/26/2019 Office Visit Cardiology Dieter Zhou MD [address] [id number] [place], [place] [phone] 07/05/2019 Office Visit Pulmonary Disease Sukh Harris MD [address] [id number] [place], [place] [phone] 07/13/2019 Office Visit Pain Medicine Health Maintenance [...] Associated Diagnosis DAY SURGERY - VICTORY Routine 02/15/2019 [place] 12:01 AM CDT documented in this encounter Results Not on filedocumented in this encounter Insurance Type Payer Benefit Subscriber ID Effective Phone Address Plan / Dates Group Medicaid [facility] xxxxxxxxx 2015-P PLAN - MANAGED MEDICAID STAR PLUS resent documented as of this encounter
--- OUTSIDE RECORDS SUMMARY | 2019-06-09 13:26 | XMS REPORT | Summary of Care ---
Author Author [facility] - Health Organization [facility] - Health Address Unknown Phone Unavailable Care Team Providers Care Pipe And Tank Fabricator Name Role Phone Fabien Fernandes MD Unavailable Edda Leena Alberta PCP Reason for Visit * Reason Comments Shortness of Breath Cough * (Routine) Referred By Contact Referred To Contact Status Reason Specialty Diagnoses / Procedures Dieter Zhou MD [address] [facility] [id number] [place] [address] Closed Pulmonary Diagnoses Function Dyspnea on Technologist exertion P rocedures SIX MINUTE WALK Preferred Location: [facility] [place] PULMONARY STRESS TESTING Encounter Details Care Team Description Date Type Department Dieter Zhou MD [address] [employer] [id number] [place] [address] Test, Vtc Pulmonary Function Dyspnea on exertion 02/10/2019 Patient Centered Care Specialist [facility] Health Pulmonary- Visit [facility] [address] [place] [phone] Allergies Comments Active Allergy Reactions Severity Noted Date Azithromycin Itching 01/07/2019 Ciprofloxacin Rash 01/27/2018 Clindamycin Other - See Medium 10/05/2016 comments, Itching Clonazepam Itching, Medium 11/23/2017 Rash, Swelling All steroids-muscle weakness t Corticosteroids Rash 01/20/2016 (Glucocorticoids) Iodine Rash 10/05/2016 Lincomycin Rash Medium 09/15/2017 Nitrofurantoin Rash 01/27/2018 steroid Other [place]-3s Anaphylaxis 01/27/2018 States it would be fatal Penicillins Other - See High 01/20/2016 comments, Shortness of Breath Sulfa (Sulfonamide Other - See 01/20/2016 Antibiotics) comments, Swelling New string of tetanus- went to ER , medication for throat closing up Tetanus Vaccines And Swelling High 01/20/2016 Toxoid documented as of this encounter (statuses as of 02/10/2019) Medications End Date Status Medication Sig Dispensed [...] as of this encounter (statuses as of 02/10/2019) Active Problems Problem Noted Date Chronic lumbar radiculopathy 01/12/2019 Overview: Added automatically from request for surgery [id number] 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/12/2019 Overview: Added automatically from request for surgery [id number] Obesity (BMI 30-39.9) 12/16/2018 Recurrent UTI 05/17/2018 [...] as of this encounter (statuses as of 02/10/2019) Resolved Problems Problem Noted Date Resolved Date 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/12/2019 01/16/2019 Overview: Added automatically from request for surgery [id number] documented as of this encounter (statuses as of 02/10/2019) Immunizations Name Administration Dates Next Due Influenza [...] Date Type Specialty Sukh Harris MD [address] [phone] Spondylosis of lumbar region without myelopathy or radiculopathy 02/15/2019 Hospital Surgery Encounter Sukh Harris MD [address] [phone] RADIOFREQUENCY THERMOCOAGULATION 02/15/2019 Surgery Surgery Gerber Ni [address] [place] [id number] [place] [address] [phone] 02/21/2019 Office Visit Obstetrics & Gynecology Zoila Rodas AGNP [address] [place] [phone] 03/01/2019 Office Visit Nephrology Mio Castro MD [address] [phone] 04/26/2019 Office Visit Cardiology Dieter Zhou MD 301 [facility] [id number] [place] [phone] 07/05/2019 Office Visit Pulmonary Disease Sukh Harris MD [address] [phone] 07/13/2019 Office Visit Pain Medicine Health Maintenance [...] filedocumented in this encounter Visit Diagnoses Diagnosis Dyspnea on exertion Other dyspnea and respiratory abnormality documented in this encounter Insurance Type Payer Benefit Subscriber ID Effective Phone Address Plan / Dates Group Medicaid [employer] [place] xxxxxxxxx 2015-P PLAN - MANAGED MEDICAID STAR PLUS resent documented as of this encounter
--- OUTSIDE RECORDS SUMMARY | 2019-06-09 13:27 | XMS REPORT | Summary of Care ---
Author Author [facility] - Health Organization [facility] - Health Address Unknown Phone Unavailable Care Team Providers Care Human Resources Records Clerk Name Role Phone Fabien Fernandes MD Unavailable Leena Bañuelos DO PCP Reason for Visit * Reason Comments Forms wheel chair Encounter Details Care Team Description Date Type Department Leena Bañuelos DO [address] [place] [place] [phone] Forms (wheel chair) 02/16/2019 Telephone [facility] Internal [facility]- [facility] [address] [place] [phone] Allergies Comments Active Allergy Reactions Severity Noted Date Azithromycin Itching 01/07/2019 Ciprofloxacin Rash 01/27/2018 Clindamycin Other - See Medium 10/05/2016 comments, Itching Clonazepam Itching, Medium 11/23/2017 Rash, Swelling All steroids-muscle weakness t Corticosteroids Rash 01/20/2016 (Glucocorticoids) Iodine Rash 10/05/2016 Lincomycin Rash Medium 09/15/2017 Nitrofurantoin Rash 01/27/2018 steroid Other [place]-3s Anaphylaxis 01/27/2018 States it would be fatal Penicillins Other - See High 01/20/2016 comments, Shortness of Breath Sulfa (Sulfonamide Other - See 01/20/2016 Antibiotics) comments, Swelling New string of tetanus- went to ER , medication for throat closing up Tetanus Vaccines And Swelling High 01/20/2016 Toxoid documented as of this encounter (statuses as of 02/16/2019) Medications End Date Status Medication Sig Dispensed [...] mg tablet 0 9 Active CBD oil ([employer] HOPE) Take by 0 20:1 with safflower [...] as of this encounter (statuses as of 02/16/2019) Active Problems Problem Noted Date Chronic lumbar radiculopathy 01/12/2019 Overview: Added automatically from request for surgery [id number] 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/12/2019 Overview: Added automatically from request for surgery [id number] Obesity (BMI 30-39.9) 12/16/2018 Recurrent UTI 05/17/2018 [...] as of this encounter (statuses as of 02/16/2019) Resolved Problems Problem Noted Date Resolved Date 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/12/2019 01/16/2019 Overview: Added automatically from request for surgery [id number] documented as of this encounter (statuses as of 02/16/2019) Immunizations Name Administration Dates Next Due Influenza [...] Team Description Date Type Specialty Gerber Ni [address] [place] [address] [id number] [place], [place] [phone] 02/21/2019 Office Visit Obstetrics & Gynecology Zoila Rodas AGNP [address] [place] [phone] 03/01/2019 Office Visit Nephrology Mio Castro MD [address] [place] [phone] 04/26/2019 Office Visit Cardiology Dieter Zhou MD [address] [id number] [place], [place] [phone] 07/05/2019 Office Visit Pulmonary Disease Sukh Harris MD [address] [id number] [place] [address] 07/13/2019 Office Visit Pain Medicine [...]
--- OUTSIDE RECORDS SUMMARY | 2019-06-09 13:27 | XMS REPORT | Summary of Care ---
Author Author [facility] - Health Organization [facility] - Health Address Unknown Phone Unavailable Care Team Providers Care Passenger Booking Clerk Name Role Phone Fabien Fernandes MD Unavailable Leena Bañuelosynh PCP Reason for Referral * (JAMES) Referred By Contact Referred To Contact Status Reason Specialty Diagnoses / Procedures Dieter Zhou MD [address] [place] [address] New Request Cardiology Diagnoses Dyspnea on exertion Chest pain, unspecified type P rocedures CONSULT/REFERRAL CARDIOLOGY * (Routine) Referred By Contact Referred To Contact Status Reason Specialty Diagnoses / Procedures Dieter Zhou MD [address] [place] [address] Closed Pulmonary Diagnoses Function Dyspnea on Technologist exertion P rocedures SIX MINUTE WALK Preferred Location: [facility] PFT Lab [place] PULMONARY STRESS TESTING * MRI/CAT Scan (Routine) Referred By Contact Referred To Contact Status Reason Specialty Diagnoses / Procedures Dieter Zhou MD [address] [place] [address] Closed Diagnostic Diagnoses Radiology Lung nodule P rocedures CT LOW DOSE LUNG NODULE Reason for Visit * Reason Comments Follow-up Encounter Details Care Team Description Date Type Department iDeter Zhou MD [address] [facility] [place] [address] [phone] Lung nodule (Primary Dx); Dyspnea on exertion; Chest pain, unspecified type 02/01/2019 [facility] [address] [place] [phone] Allergies Comments Active Allergy Reactions Severity Noted [...] as of this encounter (statuses as of 02/23/2019) Medications End Date Status Medication Sig Dispensed [...] as of this encounter (statuses as of 02/23/2019) Active Problems Problem Noted Date Chronic lumbar radiculopathy 01/12/2019 Overview: Added automatically from request for surgery [id number] 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/12/2019 Overview: Added automatically from request for surgery [id number] Obesity (BMI 30-39.9) 12/16/2018 Recurrent UTI 05/17/2018 [...] as of this encounter (statuses as of 02/23/2019) Resolved Problems Problem Noted Date Resolved Date 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/12/2019 01/16/2019 Overview: Added automatically from request for surgery [id number] documented as of this encounter (statuses as of 02/23/2019) Immunizations Name Administration Dates Next Due Influenza [...] Signs Reading Time Taken Comments Vital Sign 103/72 02/01/2019 10:33 AM CDT Blood Pressure 84 02/01/2019 10:33 AM CDT Pulse 35.8 C (96.4 F) 02/01/2019 10:33 AM CDT Temperature - - Respiratory Rate 94% 02/01/2019 10:33 AM CDT Oxygen Saturation - - Inhaled Oxygen Concentration 83 kg (183 lb) 02/01/2019 10:33 AM CDT Weight - - Height 34.58 01/23/2019 7:52 AM CDT Body Mass Index documented in this encounter Progress Notes * Dieter Zhou MD - 02/01/2019 10:30 AM CDT Attestation: Today 01 February 2019, I interviewed, examined, and discussed the patient with Dr Damian. I concur with his note, assessments, plans as written. [facility] * Bhupinder Damian MD - 02/01/2019 10:30 AM CDT Pulmonology Note CC: Patient presents to clinic today as f/u SOB and SU HPI: Ms Nieto is a 63 year old female with history of HTN, anxiety, Vit D defi ciency, anxiety, depression, Non epileptic psychogenic seizure here for f/u SOB and SU. Patient previously w ith reported h/o asthma in which SOB episodes related to having psychogenic seiz ures. She was previously hospitalized in 11/2018 for having non-epileptic seizure s in which seizures were terminated in injection of saline per charts from disch arge summary. She reports that a previous hospital physician stopped her inhaler medication and she has not had any inhalers in past 2 months without any worsen ing of SOB, SU. She still has substantial daily baseline level of SOB, SU as p revious visit which she increased with chest tightness and chest pain especially worsened when she has increased stress at home. Medications: phenazopyridine 200 mg tablet Take 1 tablet by mouth 3 (three) times daily. acetaminophen 500 mg tablet Take 500 mg by mouth. acetaminophen-codeine 300-30 mg tablet Take 1 tablet by mouth daily. famotidine 20 mg tablet Take 20 mg by mouth. fexofenadine 180 mg tablet Take 180 mg by mouth. KCL 20 mEq tablet TAKE 2 TABLETS BY MOUTH NOW FOR 1 DOSE metFORMIN 1,000 mg tablet Take 1,000 mg by mouth. montelukast 10 mg tablet Take 10 mg by mouth. PARoxetine 20 mg tablet Take 20 mg by mouth. SERTraline 100 mg tablet Take 100 mg by mouth. LISINOPRIL 5 mg tablet TAKE 1 TABLET BY MOUTH EVERY DAY mirtazapine 30 mg tablet Take 1 tablet by mouth at bedtime. GABAPENTIN 400 mg capsule TAKE 1 CAPSULE BY MOUTH THREE TIMES A DAY AMLODIPINE 5 mg tablet TAKE 1 TABLET BY MOUTH EVERY DAY CBD oil ([employer]) 20:1 with safflower Take by mouth as needed ([place] re, pain). dicyclomine 20 mg tablet omeprazole 40 mg capsule TAKE 1 CAPSULE BY MOUTH EVERY DAY VITAMIN D2 50,000 unit capsule TAKE ONE CAPSULE BY MOUTH ONCE A WEEK hydroCHLOROthiazide 25 mg tablet Take 1 tablet by mouth daily. cetirizine 10 mg tablet Take 10 mg by mouth every morning. LORazepam 0.5 mg tablet Take 0.5 mg by mouth daily. hydrOXYzine 25 mg tablet Take 25 mg by mouth every 6 (six) hours. Allergies: Allergies Allergen Reactions Pcn [Penicillins] Other - [...] weakness t Iodine Rash Nitrofurantoin Rash Other [place]-3s Anaphylaxis steroid Sulfa (Sulfonamide Antibiotics) Other - See comments and Swelling Past Medical History: Diagnosis Date Depression Frequent falls Hyperlipidemia Hypertension IBS (irritable bowel syndrome) Low back pain Osteoporosis b/l hip Seizure (nonepileptic psychogenic) Past Surgical History: Procedure Laterality Date CHOLECYSTECTOMY HYSTERECTOMY MEDIAL BRANCH BLOCK (SHX) Right 01/23/2019 Surgeon: Sukh Harris MD; Location: [facility] TONSILLECTOMY Social History Tobacco Use Smoking status: Never Smoker Smokeless tobacco: Never Used Substance Use Topics Alcohol use: No Drug use: No Social History Social History Narrative Not on file Family History Problem Relation Age of Onset Heart Mother Hypertension Mother Diabetes Father Hypertension Father REVIEW OF SYSTEMS Constitutional: appetite: good , no chills, no fatigue, no fever ,no weight gain , no weight loss Eyes: - itching, - redness and - change in vision Ears: - ear pain, - discharge and - infection Nose: - clear rhinorrhea, - congestion, - itching and - post nasal drip Mouth/Throat: - hoarseness, - throat itching, - throat soreness and - throat swe lling Cardiovascular: - chest pain, - palpitations, - high blood pressure and -swellin g of hands or feet Respiratory: - cough, - sputum, - wheezing, + short of breath and - chest tightn ess Gastrointestinal: - change in appetite, - nausea, - vomiting and - sour taste Skin: - dryness, - hives, - itching and - rash Endocrine: - diabetes, - thyroid problems and - cold or heat intolerance Allergy/Immunology: As above Musculoskeletal: no back pain, no joint pain, nojoint stiffness and joint swelli ng Hem/Lymph: No anemia,no bleeding disorder,no blood clots and no bruising Neuro: no dizziness, no fainting,no headache and no paresthesia Psych: no anxiety, no attention problems and no depression PHYSICAL EXAM BP 103/72 (BP Location: Left arm, Patient Position: Sitting, BP CUFF SIZE: Adult Large) | Pulse 84 | Temp 35.8 C (96.4 F) (Oral) | Wt 183 lb (83 kg) | L MP (LMP Unknown) | SpO2 94% | BMI 34.58 kg/m General: alert, oriented times three, no apparent distress, appearing age approp riate. Head: normocephalic and atraumatic Eyes: anicteric sclera, pupils are equally round and reactive to light, extraocu lar movements are intact. Ears: external ears normal, canals clear, tympanic membranes normal. Nose: no drainage or sinus tenderness Oropharynx: mucosa pink and moist. Neck: supple, no bruit, no lymphadenopathy or thyromegaly Cardiovascular: regular rate and rhythm, no murmur, peripheral pulses palpable a nd normal. Lungs: no wheezes or crackles. Lymphatic: non-palpable nodes in neck, clavicular, axillary regions Extremities: no cyanosis, no edema, intact times four. Skin: skin color, texture, and turgor are normal. Neurologic: normal gait and station LABS: 10/18/2018 CT thorax: IMPRESSION 1. Scattered bilateral pulmonary nodules measuring up to 11 mm in the left lower lobe. The largest nodules in the left lower lobe and right middle lobe are grossly unchanged compared to the prior CT abdomen/pelvis from 02/25/2018. In addition comment there is slight mosaic attenuation pattern throughout both lungs. This constellation of findings is nonspecific, but can be seen with DIPNECH (diffuse idiopathic pulmonary neuroendocrine cell hyperplasia). Short-term 3 month follow-up chest CT, PET/CT, and/or tissue sampling is recommended. ASSESSMENT/PLAN ICD-10-CM ICD-9-CM 1. Lung nodule R91.1 793.11 2. Dyspnea on exertion R06.09 786.09 3. Chest pain, unspecified type R07.9 786.50 Ms Nieto is a 64 year old female here for f/u SOB and SU. She previously had a diagnosis of asthma but has been off all inhalers without any significant worse fly of symptoms and did not previously had any obstruction on previous PFTs. He r SOB, SU, and CP are likely related to significant anxiety with uncontrolled p sychogenic seizures. Patient wanting referral to see cardiology for chest pain w hich is not unreasonable having some cardiac risk factors with DM, HTN, HLD. We will monitor off inhaler therapy and do 6MWT. She will need a repeat CT to f/u p revious pulmonary nodules seen on last CT along with mosiac pattern nonspecific to DIPNECH. Plan: -CT thorax to evaluate nodules -6 minute walk test -continue to monitor off inhalers Follow up in 3 months Patient seen and discussed with Dr. Winnie Damian M.D. Allergy and Immunology Fellow, PGY-4 * Jacob Gutierrez - 02/01/2019 10:30 AM CDT John Nieto is a 63 year old female Chief Complaint Patient presents with Follow-up documented in this encounter Plan of Treatment Care Team Description Date Type Specialty Zoila Rodas AGNP [address] [place], [place] [id number] 03/01/2019 Office Visit Nephrology Mio Castro MD [address] [address] 04/26/2019 Office Visit Cardiology Dieter Zhou MD [address] [facility] [id number] [place], [place] [id number] 07/05/2019 Office Visit Pulmonary Disease Sukh Harris MD [address] [facility] [facility] [id number] [place], [place] [id number] 07/13/2019 Office Visit Pain Medicine Order Schedule Name Type Priority Associated Diagnoses Ordered: 02/01/2019 SIX MINUTE WALK Preferred PULMONARY Routine Dyspnea on exertion Location: [place] [facility] PFT Lab Health Maintenance Due Date Last Done Comments [...] topic documented as of this encounter Results * CT LOW DOSE LUNG NODULE (02/04/2019 9:54 AM CDT) Specimen Impressions Performed At .Scattered bilateral pulmonary nodules measuring up to 11 mm in the left PACS/VR/DOSE lower lobe, unchanged compared to be prior CT from 10/18/2018, with the larger nodules in the left lower and right middle lobes unchanged compared to the prior CT abdomen/pelvis from 02/25/2018. In addition, there is slight mosaic attenuation pattern throughout both lungs. This constellation of findings is nonspecific, but can be seen with diffuse idiopathic pulmonary neuroendocrine cell hyperplasia (DIPNECH). If the patient has certain high risk factors (significant smoking history), a follow-up chest CT is recommended in 18-24 months, otherwisechest, an optional CT in 18-24 months can be performed. Recommendations for Follow-up and Management of Indeterminate Lung Nodules Detected Incidentally on Non-screening CT can be found in the following article (Adapted from the Fleischner Society 2017). http://pubs.rsna.org/doi/full/10.1148/radiol.2098743828 Narrative Performed At PROCEDURE: CT CHEST NON CONTRAST - NODULE PROTOCOL PACS/VR/DOSE CLINICAL INDICATION: previous lung nodules COMPARISON: Chest CT 10/18/2018. TECHNIQUE: Low dose helical CT was acquired from lung apices to bases, and reconstructed at 1.25 mm, without intravenous contrast. Axial MIPS and coronal and sagittal MPR reconstructions were generated and reviewed. MIP and coronal & sagittal MPR images were generated and reviewed. (DFOV=40 cm) FINDINGS: Lower neck/thyroid: Unremarkable. Lungs: A left lower lobe 11 mm nodule is unchanged (2:299). A right middle lobe 6 mm nodule is unchanged (2:262). A right lower lobe 3 mm nodule is unchanged (2:203). An ill-defined medial right lower lobe 5 mm nodule is unchanged (2:314). Right lower lobe 4 mm nodule is unchanged (2:311). Other scattered 2 to 3 mm nodules also unchanged. No new suspicious pulmonary nodules are seen. Slight mosaic attenuation pattern is noted in both lungs. Central airway: The central airways are patent. Pleura: No pleural effusion, thickening or pneumothorax. Thoracic aorta and great vessels:Normal in diameter. Pulmonary arteries: Unremarkable. Heart and pericardium: Scattered multivessel coronary arterial calcification. Calcification of the mitral annulus is noted. The heart is normal in size. No significant pericardial effusion is seen. Lymph nodes: No enlarged thoracic lymph nodes. Mediastinum: Unremarkable. Thoracic spine and chest wall: No aggressive osseous lesion is seen. An intraosseous hemangioma is again noted in the T2 vertebral body. Other Lines/Tubes/Devices/Hardware: None Visualized upper abdomen: The liver is diffusely hypoattenuating compared to the spleen, suggestive of fatty infiltration. Changes of cholecystectomy are noted. Procedure Note [facility], Radiant Results Inft User - 02/05/2019 12:40 PM CDT PROCEDURE: CT CHEST NON CONTRAST - NODULE PROTOCOL CLINICAL INDICATION: previous lung nodules COMPARISON: Chest CT 10/18/2018. TECHNIQUE: Low dose helical CT was acquired from lung apices to bases, and reconstructed at 1.25 mm, without intravenous contrast. Axial MIPS and coronal and sagittal MPR reconstructions were generated and reviewed. MIP and coronal & sagittal MPR images were generated and reviewed. (DFOV=40 cm) FINDINGS: Lower neck/thyroid: Unremarkable. Lungs: A left lower lobe 11 mm nodule is unchanged (2:299). A right middle lobe 6 mm nodule is unchanged (2:262). A right lower lobe 3 mm nodule is unchanged (2:203). An ill-defined medial right lower lobe 5 mm nodule is unchanged (2:314). Right lower lobe 4 mm nodule is unchanged (2:311). Other scattered 2 to 3 mm nodules also unchanged. No new suspicious pulmonary nodules are seen. Slight mosaic attenuation pattern is noted in both lungs. Central airway: The central airways are patent. Pleura: No pleural effusion, thickening or pneumothorax. Thoracic aorta and great vessels: Normal in diameter. Pulmonary arteries: Unremarkable. Heart and pericardium: Scattered multivessel coronary arterial calcification. Calcification of the mitral annulus is noted. The heart is normal in size. No significant pericardial effusion is seen. Lymph nodes: No enlarged thoracic lymph nodes. Mediastinum: Unremarkable. Thoracic spine and chest wall: No aggressive osseous lesion is seen. An intraosseous hemangioma is again noted in the T2 vertebral body. Other Lines/Tubes/Devices/Hardware: None Visualized upper abdomen: The liver is diffusely hypoattenuating compared to the spleen, suggestive of fatty infiltration. Changes of cholecystectomy are noted. IMPRESSION 1. Scattered bilateral pulmonary nodules measuring up to 11 mm in the left lower lobe, unchanged compared to be prior CT from 10/18/2018, with the larger nodules in the left lower and right middle lobes unchanged compared to the prior CT abdomen/pelvis from 02/25/2018. In addition, there is slight mosaic attenuation pattern throughout both lungs. This constellation of findings is nonspecific, but can be seen with diffuse idiopathic pulmonary neuroendocrine cell hyperplasia (DIPNECH). If the patient has certain high risk factors (significant smoking history), a follow-up chest CT is recommended in 18-24 months, otherwisechest, an optional CT in 18-24 months can be performed. Recommendations for Follow-up and Management of Indeterminate Lung Nodules Detected Incidentally on Non-screening CT can be found in the following article (Adapted from the Fleischner Society 2017). http://pubs.rsna.org/doi/full/10.1148/radiol.0870494009 Performing Organization Address City/State/Zipcode Phone Number PACS/VR/DOSE documented in this encounter Visit Diagnoses Diagnosis Lung nodule - Primary Solitary pulmonary nodule Dyspnea on exertion Other dyspnea and respiratory abnormality Chest pain, unspecified type documented in this encounter Insurance Type Payer Benefit Subscriber ID Effective Phone Address Plan / Dates Group Medicaid [employer] [place] xxxxxxxxx 2015- PLAN - MANAGED MEDICAID [place] documented as of this encounter"
--- OUTSIDE RECORDS SUMMARY | 2019-06-09 13:27 | XMS REPORT | Summary of Care ---
Author Author [facility] - Health Organization [facility] - Health Address Unknown Phone Unavailable Care Team Providers Care Lever Tender Name Role Phone Fabien Fernandes MD Unavailable Leena Bañuelosynpatricia MURILLO PCP Encounter Details Care Team Description Date Type Department Doctor Unassigned, [place] [address] [place] [address] 03/01/[address] [facility] [address] [place] [address] Allergies Comments Active Allergy Reactions Severity Noted Date Azithromycin Itching 01/07/2019 Ciprofloxacin Rash 01/27/2018 Clindamycin Other - See Medium 10/05/2016 comments, Itching Clonazepam Itching, Medium 11/23/2017 Rash, Swelling All steroids-muscle weakness t Corticosteroids Rash 01/20/2016 (Glucocorticoids) Iodine Rash 10/05/2016 Lincomycin Rash Medium 09/15/2017 Nitrofurantoin Rash 01/27/2018 steroid Other [place]-3s Anaphylaxis 01/27/2018 States it would be fatal Penicillins Other - See High 01/20/2016 comments, Shortness of Breath Sulfa (Sulfonamide Other - See 01/20/2016 Antibiotics) comments, Swelling New string of tetanus- went to ER , medication for throat closing up Tetanus Vaccines And Swelling High 01/20/2016 Toxoid documented as of this encounter (statuses as of 03/01/2019) Medications End Date Status Medication Sig Dispensed [...] as of this encounter (statuses as of 03/01/2019) Active Problems Problem Noted Date Chronic lumbar radiculopathy 01/12/2019 Overview: Added automatically from request for surgery [id number] 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/12/2019 Overview: Added automatically from request for surgery [id number] Obesity (BMI 30-39.9) 12/16/2018 Recurrent UTI 05/17/2018 [...] as of this encounter (statuses as of 03/01/2019) Resolved Problems Problem Noted Date Resolved Date 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/12/2019 01/16/2019 Overview: Added automatically from request for surgery [id number] documented as of this encounter (statuses as of 03/01/2019) Immunizations Name Administration Dates Next Due Influenza [...] Description Date Type Specialty Zoila Rodas AGNP [address] [place] [id number] Arrived 03/01/2019 Office Visit Nephrology Mio Castro MD [address] [address] 04/26/2019 Office Visit Cardiology Dieter Zhou MD [address] [facility] [id number] [place] [address] 07/05/2019 Office Visit Pulmonary Disease Sukh Harris MD [id number] [place] [address] [phone] 07/13/2019 Office Visit Pain Medicine Health Maintenance [...] Comments Procedure Name Priority Date/Time Associated Diagnosis NO SHOW OR MISSED Routine 03/01/2019 APPOINTMENT POLICY 1:04 PM CDT ACKNOWLEDGEMENT documented in this encounter Results Not on filedocumented in this encounter Insurance Type Payer Benefit Subscriber ID Effective Phone Address Plan / Dates Group [facility] [id number] 2019-P [phone] [address] [facility] [address] [place] [address] documented as of this encounter
--- OUTSIDE RECORDS SUMMARY | 2019-06-09 13:27 | XMS REPORT | Summary of Care ---
Author Author [facility] - Health Organization [facility] - Health Address Unknown Phone Unavailable Care Team Providers Care Accounting Administrative Assistant Name Role Phone Fabien Fenrandes MD Unavailable Leena Bañuelosynpatricia MURILLO PCP Reason for Visit * Reason Comments Assessment Encounter Details Care Team Description Date Type Department Carmel Gamez MD [address] [place] [address] Assessment 02/17/2019 Telephone [facility] [address] [place] [phone] Allergies Comments Active Allergy Reactions Severity Noted Date Azithromycin Itching 01/07/2019 Ciprofloxacin Rash 01/27/2018 Clindamycin Other - See Medium 10/05/2016 comments, Itching Clonazepam Itching, Medium 11/23/2017 Rash, Swelling All steroids-muscle weakness t Corticosteroids Rash 01/20/2016 (Glucocorticoids) Iodine Rash 10/05/2016 Lincomycin Rash Medium 09/15/2017 Nitrofurantoin Rash 01/27/2018 steroid Other [place]-3s Anaphylaxis 01/27/2018 States it would be fatal Penicillins Other - See High 01/20/2016 comments, Shortness of Breath Sulfa (Sulfonamide Other - See 01/20/2016 Antibiotics) comments, Swelling New string of tetanus- went to ER , medication for throat closing up Tetanus Vaccines And Swelling High 01/20/2016 Toxoid documented as of this encounter (statuses as of 02/17/2019) Medications End Date Status Medication Sig Dispensed [...] as of this encounter (statuses as of 02/17/2019) Active Problems Problem Noted Date Chronic lumbar radiculopathy 01/12/2019 Overview: Added automatically from request for surgery [id number] 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/12/2019 Overview: Added automatically from request for surgery [id number] Obesity (BMI 30-39.9) 12/16/2018 Recurrent UTI 05/17/2018 [...] as of this encounter (statuses as of 02/17/2019) Resolved Problems Problem Noted Date Resolved Date 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/12/2019 01/16/2019 Overview: Added automatically from request for surgery [id number] documented as of this encounter (statuses as of 02/17/2019) Immunizations Name Administration Dates Next Due Influenza [...] Description Date Type Specialty Zoila Rodas AGNP [address] [place] [address] 03/01/2019 Office Visit Nephrology Mio Castro MD [address] [place] [phone] 04/26/2019 Office Visit Cardiology Dieter Zhou MD [id number] [place], [place] [address] 07/05/2019 Office Visit Pulmonary Disease Sukh Harris MD [id number] [place] [address] [phone] 07/13/2019 Office Visit Pain Medicine Health Maintenance [...] Phone Address Plan / Dates Group Medicaid [facility] xxxxxxxxx 2015-P PLAN - MANAGED MEDICAID [place] documented as of this encounter
--- OUTSIDE RECORDS SUMMARY | 2019-06-09 13:27 | XMS REPORT | Summary of Care ---
Author Author [facility] - Health Organization [facility] - Health Address Unknown Phone Unavailable Care Team Providers Care Wire Twisting Machine Operator Name Role Phone Fabien Fernandes MD Unavailable Leena Bañuelosynh PCP Reason for Referral * (JAMES) Referred By Contact Referred To Contact Status Reason Specialty Diagnoses / Procedures Dieter Zhou MD [address] [place] [address] New Request Cardiology Diagnoses Dyspnea on exertion Chest pain, unspecified type P rocedures CONSULT/REFERRAL CARDIOLOGY * (Routine) Referred By Contact Referred To Contact Status Reason Specialty Diagnoses / Procedures Dieter Zhou MD [address] [place] [address] Closed Pulmonary Diagnoses Function Dyspnea on Technologist exertion P rocedures SIX MINUTE WALK Preferred Location: [facility] PFT Lab [facility] PULMONARY STRESS TESTING * MRI/CAT Scan (Routine) Referred By Contact Referred To Contact Status Reason Specialty Diagnoses / Procedures Dieter Zhou MD [address] [place] [address] Closed Diagnostic Diagnoses Radiology Lung nodule P rocedures CT LOW DOSE LUNG NODULE Reason for Visit * Reason Comments Follow-up Encounter Details Care Team Description Date Type Department Dieter Zhou MD [address] [facility] [employer] [place] [address] [phone] Lung nodule (Primary Dx); Dyspnea on exertion; Chest pain, unspecified type 02/01/2019 [facility] [address] [place] [phone] Allergies Comments Active Allergy Reactions Severity Noted Date Azithromycin Itching 01/07/2019 Ciprofloxacin Rash 01/27/2018 Clindamycin Other - See Medium 10/05/2016 comments, Itching Clonazepam Itching, Medium 11/23/2017 Rash, Swelling All steroids-muscle weakness t Corticosteroids Rash 01/20/2016 (Glucocorticoids) Iodine Rash 10/05/2016 Lincomycin Rash Medium 09/15/2017 Nitrofurantoin Rash 01/27/2018 steroid Other [place]-3s Anaphylaxis 01/27/2018 States it would be fatal [...] Overview: Added automatically from request for surgery [id number] 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/12/2019 Overview: Added automatically from request for surgery [id number] Obesity (BMI 30-39.9) 12/16/2018 Recurrent UTI 05/17/2018 [...] Overview: Added automatically from request for surgery [id number] documented as of this encounter (statuses as [...] TABLET BY MOUTH EVERY DAY CBD oil ([employer]OPE) 20:1 with safflower Take by mouth [...] weakness t Iodine Rash Nitrofurantoin Rash Other [place]-3s Anaphylaxis steroid Sulfa (Sulfonamide Antibiotics) Other - See comments and Swelling Past Medical History: Diagnosis Date Depression Frequent falls Hyperlipidemia Hypertension IBS (irritable bowel syndrome) Low back pain Osteoporosis b/l hip Seizure (nonepileptic psychogenic) Past Surgical History: Procedure Laterality Date CHOLECYSTECTOMY HYSTERECTOMY MEDIAL BRANCH BLOCK (SHX) Right 01/23/2019 Surgeon: Sukh Harris MD; Location: [facility] ([facility]3] TONSILLECTOMY Social History Tobacco Use Smoking status: [...] Date Type Specialty Zoila Rodas AGNP [address] [place], [place] [phone] 03/01/2019 Office Visit Nephrology Mio Castro MD [address] [phone] 04/26/2019 Office Visit Cardiology Dieter Zhou MD [address] [facility] [id number] [place], [place] [phone] 07/05/2019 Office Visit Pulmonary Disease Sukh Harris MD [address] [facility] [id number] [place], [place] [phone] 07/13/2019 Office Visit Pain Medicine Order Schedule Name Type Priority Associated Diagnoses Ordered: 02/01/2019 SIX MINUTE WALK Preferred PULMONARY Routine Dyspnea on exertion Location: [place] [facility] PFT Lab Health Maintenance Due Date [...] article (Adapted from the Fleischner Society 2017). http://pubs.rsna.org/doi/full/10.1148/radiol.9669632841 Narrative Performed At PROCEDURE: CT CHEST NON [...] article (Adapted from the Fleischner Society 2017). http://pubs.rsna.org/doi/full/10.1148/radiol.4923196661 Performing Organization Address City/State/Zipcode Phone Number PACS/VR/DOSE documented in this encounter Visit Diagnoses Diagnosis Lung nodule - Primary Solitary pulmonary nodule Dyspnea on exertion Other dyspnea and respiratory abnormality Chest pain, unspecified type documented in this encounter Insurance Type Payer Benefit Subscriber ID Effective Phone Address Plan / Dates Group Medicaid [employer] [place] xxxxxxxxx 2015- PLAN - MANAGED MEDICAID DWARF documented as of this encounter"
--- OUTSIDE RECORDS SUMMARY | 2019-06-09 13:27 | XMS REPORT | Summary of Care ---
Author Author [facility] - Health Organization [facility] - Health Address Unknown Phone Unavailable Care Team Providers Care Cell Attendant Name Role Phone Fabien Fernandes MD Unavailable Leena Bañuelos DO PCP Reason for Visit * Reason Comments Forms Encounter Details Care Team Description Date Type Department Isak Butt [address] [phone] Forms 02/16/2019 Telephone [facility] Internal [facility]- [facility] [address] [place] [phone] Allergies Comments Active Allergy Reactions Severity Noted Date Azithromycin Itching 01/07/2019 Ciprofloxacin Rash 01/27/2018 Clindamycin Other - See Medium 10/05/2016 comments, Itching Clonazepam Itching, Medium 11/23/2017 Rash, Swelling All steroids-muscle weakness t Corticosteroids Rash 01/20/2016 (Glucocorticoids) Iodine Rash 10/05/2016 Lincomycin Rash Medium 09/15/2017 Nitrofurantoin Rash 01/27/2018 steroid Other [place]-3s Anaphylaxis 01/27/2018 States it would be fatal [...] mg tablet 0 9 Active CBD oil ([employer] H[employer]) Take by 0 20:1 with safflower [...] Overview: Added automatically from request for surgery [id number] 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/12/2019 Overview: Added automatically from request for surgery [id number] Obesity (BMI 30-39.9) 12/16/2018 Recurrent UTI 05/17/2018 [...] Overview: Added automatically from request for surgery [id number] documented as of this encounter (statuses as [...] Description Date Type Specialty Gerber Ni [address] [facility] [id number] [place] [address] 02/21/2019 Office Visit Obstetrics & Gynecology Zoila Rodas AGNP [address] [place] [phone] 03/01/2019 Office Visit Nephrology Mio Castro MD [address] [place] [phone] 04/26/2019 Office Visit Cardiology Dieter Zhou MD [address] [id number] [place], [place] [phone] 07/05/2019 Office Visit Pulmonary Disease Sukh Harris MD [address] [id number] [place] [address] 07/13/2019 Office Visit Pain Medicine [...]
--- OUTSIDE RECORDS SUMMARY | 2019-06-09 13:28 | XMS REPORT | Summary of Care ---
Author Author [facility] - Health Organization [facility] - Health Address Unknown Phone Unavailable Care Team Providers Care Communications Clerk Name Role Phone Fabien Fernandes MD Unavailable Leena Bañuelosynpatricia MURILLO PCP Reason for Visit * Reason Comments LAB Encounter Details Care Team Description Date Type Department Zoila Rodas AGNP [address] [place] [phone] Vtc-Lab Hypertension, unspecified type 03/01/2019 Contact Centre Supervisor [facility] [address] [place] [phone] Allergies Comments Active Allergy Reactions Severity Noted Date Azithromycin Itching 01/07/2019 Ciprofloxacin Rash 01/27/2018 Clindamycin Other - See Medium 10/05/2016 comments, Itching Clonazepam Itching, Medium 11/23/2017 Rash, Swelling All steroids-muscle weakness t Corticosteroids Rash 01/20/2016 (Glucocorticoids) Iodine Rash 10/05/2016 Lincomycin Rash Medium 09/15/2017 Nitrofurantoin Rash 01/27/2018 steroid Other [place]-3s Anaphylaxis 01/27/2018 States it would be fatal [...] mg tablet 0 9 Active CBD oil ([employer] HOPE) Take by 0 20:1 with safflower [...] Overview: Added automatically from request for surgery [id number] 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/12/2019 Overview: Added automatically from request for surgery [id number] Obesity (BMI 30-39.9) 12/16/2018 Recurrent UTI 05/17/2018 [...] Overview: Added automatically from request for surgery [id number] documented as of this encounter (statuses as [...] Treatment Care Team Description Date Type Specialty Mio Castro MD [address] [place] [phone] 04/26/2019 Office Visit Cardiology Dieter Zhou MD [address] [id number] [place] [address] 07/05/2019 Office Visit Pulmonary Disease Sukh Harris MD [address] [facility] [id number] [place], [place] [phone] 07/13/2019 Office Visit Pain Medicine Zoila Rodas AGNP [address] [place] [phone] 08/30/2019 Office Visit Nephrology Health Maintenance Due Date [...] filedocumented in this encounter Visit Diagnoses Diagnosis Hypertension, unspecified type documented in this encounter Insurance Type Payer Benefit Subscriber ID Effective Phone Address Plan / Dates Group O [facility] [id number] 2019-P [phone] [address] [facility] [id number] [place] [address] (Home) [place] [address] documented as of this encounter
--- OUTSIDE RECORDS SUMMARY | 2019-06-09 13:28 | XMS REPORT | Summary of Care ---
Author Author [facility] - Health Organization [facility] - Health Address Unknown Phone Unavailable Care Team Providers Care Clam Bed Laborer Name Role Phone Fabien Fernandes MD Unavailable Leena Bañuelosynpatricia MURILLO PCP Reason for Visit * Reason Comments Refill Request Encounter Details Care Team Description Date Type Department Sukh Harris MD [id number] [place] [address] Refill Request 03/06/2019 Refill [facility] Pain Management - [address], [address] [place] [address] Allergies Comments Active Allergy Reactions Severity Noted Date Azithromycin Itching 01/07/2019 Ciprofloxacin Rash 01/27/2018 Clindamycin Other - See Medium 10/05/2016 comments, Itching Clonazepam Itching, Medium 11/23/2017 Rash, Swelling All steroids-muscle weakness t Corticosteroids Rash 01/20/2016 (Glucocorticoids) Iodine Rash 10/05/2016 Lincomycin Rash Medium 09/15/2017 Nitrofurantoin Rash 01/27/2018 steroid Other [place]-3s Anaphylaxis 01/27/2018 States it would be fatal Penicillins Other - See High 01/20/2016 comments, Shortness of Breath Sulfa (Sulfonamide Other - See 01/20/2016 Antibiotics) comments, Swelling New string of tetanus- went to ER , medication for throat closing up Tetanus Vaccines And Swelling High 01/20/2016 Toxoid documented as of this encounter (statuses as of 03/06/2019) Medications End Date Status Medication Sig Dispensed Refills Start Date Active hydrOXYzine 25 mg tablet Take 25 mg by 0 mouth every 6 (six) hours. Active cetirizine 10 mg tablet Take 10 mg by 3 mouth every 8 morning. Active LORazepam 0.5 mg tablet Take 0.5 mg 0 by mouth 8 daily. Active omeprazole 40 [...] 0 BY MOUTH 9 EVERY DAY Active mirtazapine 30 mg Take 1 [...] mouth 3 9 Dysuria (three) times daily. Active hydroCHLOROthiazide 25 mg Take 1 tablet 90 tablet 3 tabletIndications: by mouth 9 Hypertension, unspecified daily. type Active GABAPENTIN 400 mg TAKE 1 90 capsule 2 capsuleIndications: CAPSULE BY 9 Radiculopathy of MOUTH THREE thoracolumbar region TIMES A DAY 03/06/2019 Discontinued GABAPENTIN 400 mg TAKE 1 90 capsule 2 capsuleIndications: CAPSULE BY 9 Radiculopathy of MOUTH THREE thoracolumbar region TIMES A DAY Status Hospital, Clinic, or Ordered Dose Route Frequency Start End Date Other Facility Date Administered Medication Active lactated ringers IV 1000 mL IV Infusion CONTINUOUS 02/10/20 infusion 1,000 mL 19 documented as of this encounter (statuses as of 03/06/2019) Active Problems Problem Noted Date Chronic lumbar radiculopathy 01/12/2019 Overview: Added automatically from request for surgery [id number] 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/12/2019 Overview: Added automatically from request for surgery [id number] Obesity (BMI 30-39.9) 12/16/2018 Recurrent UTI 05/17/2018 [...] as of this encounter (statuses as of 03/06/2019) Resolved Problems Problem Noted Date Resolved Date 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/12/2019 01/16/2019 Overview: Added automatically from request for surgery [id number] documented as of this encounter (statuses as of 03/06/2019) Immunizations Name Administration Dates Next Due Influenza [...] Castro MD [address] [place] [phone] 04/26/2019 Office Visit Cardiology Dieter Zhou MD [address] [facility] [id number] [place], [place] [phone] 07/05/2019 Office Visit Pulmonary Disease Sukh Harris MD [address] [facility] [id number] [place], [place] [address] 07/13/2019 Office Visit Pain Medicine Zoila Rodas AGNP [address] [place], [place] [phone] 08/30/2019 Office Visit Nephrology Health Maintenance Due [...] filedocumented in this encounter Visit Diagnoses Diagnosis Radiculopathy of thoracolumbar region Thoracic or lumbosacral neuritis or radiculitis, unspecified documented in this encounter Insurance Type Payer Benefit Subscriber ID Effective Phone Address Plan / Dates Group O [facility] [id number] 2019-P [phone] [address] [id number] [id number] [place] [address] documented as of this encounter
--- OUTSIDE RECORDS SUMMARY | 2019-06-09 13:28 | XMS REPORT | Summary of Care ---
Author Author [facility] - Health Organization [facility] - Health Address Unknown Phone Unavailable Care Team Providers Care Golf Manager Name Role Phone Fabien Fernandes MD Unavailable Leena Bañuelosynpatricia MURILLO PCP Reason for Visit * Reason Comments Follow-up Kidney Problem Encounter Details Care Team Description Date Type Department Zoila Rodas AGNP [address] [place] [id number] Hypertension, unspecified type (Primary Dx) 03/01/2019 Office Visit [facility] [address] [place] [address] Allergies Comments Active Allergy Reactions Severity Noted Date Azithromycin Itching 01/07/2019 Ciprofloxacin Rash 01/27/2018 Clindamycin Other - See Medium 10/05/2016 comments, Itching Clonazepam Itching, Medium 11/23/2017 Rash, Swelling All steroids-muscle weakness t Corticosteroids Rash 01/20/2016 (Glucocorticoids) Iodine Rash 10/05/2016 Lincomycin Rash Medium 09/15/2017 Nitrofurantoin Rash 01/27/2018 steroid Other High Falls-3s Anaphylaxis 01/27/2018 States it would be fatal Penicillins Other - See High 01/20/2016 comments, Shortness of Breath Sulfa (Sulfonamide Other - See 01/20/2016 Antibiotics) comments, Swelling New string of tetanus- went to ER , medication for throat closing up Tetanus Vaccines And Swelling High 01/20/2016 Toxoid documented as of this encounter (statuses as of 03/02/2019) Medications End Date Status Medication Sig Dispensed [...] by mouth 9 Hypertension, unspecified daily. type 03/02/2019 Discontinued hydroCHLOROthiazide 25 mg Take 1 tablet 90 tablet 3 tablet by mouth 8 daily. Status Hospital, Clinic, or Ordered Dose Route Frequency Start End Date Other Facility Date Administered Medication Active lactated ringers IV 1000 mL IV Infusion CONTINUOUS 02/10/20 infusion 1,000 mL 19 documented as of this encounter (statuses as of 03/02/2019) Active Problems Problem Noted Date Chronic lumbar radiculopathy 01/12/2019 Overview: Added automatically from request for surgery [id number] 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/12/2019 Overview: Added automatically from request for surgery [id number] Obesity (BMI 30-39.9) 12/16/2018 Recurrent UTI 05/17/2018 [...] as of this encounter (statuses as of 03/02/2019) Resolved Problems Problem Noted Date Resolved Date 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/12/2019 01/16/2019 Overview: Added automatically from request for surgery [id number] documented as of this encounter (statuses as of 03/02/2019) Immunizations Name Administration Dates Next Due Influenza Virus Vaccine 03/21/2017 Influenza Virus Vaccine 04/19/2018 Quad ID [id number] documented as of this encounter Social History Date Tobacco Use Types Packs/Day Years Used Never Smoker Smokeless Tobacco: Never Used Tobacco Cessation: Counseling Given: No Drinks/Week oz/Week Comments Alcohol Use No Sex Assigned at Date Recorded Not on file Industry Job Start Date Occupation Not on file Not on file Not on file Travel End Travel History Travel Start No recent travel history available. documented as of this encounter Last Filed Vital Signs Reading Time Taken Comments Vital Sign 167/107 03/01/2019 2:33 PM CDT Blood Pressure 94 03/01/2019 2:33 PM CDT Pulse 36.8 C (98.3 F) 03/01/2019 2:31 PM CDT Temperature 18 03/01/2019 2:31 PM CDT Respiratory Rate 94% 03/01/2019 2:31 PM CDT Oxygen Saturation - - Inhaled Oxygen Concentration 82.6 kg (182 lb) 03/01/2019 2:31 PM CDT Weight - - Height 31.24 02/15/2019 12:02 PM CDT Body Mass Index documented in this encounter Progress Notes * Zoila Rodas AGNP - 03/01/2019 1:30 PM CDT DATE OF SERVICE: 03/01/2019 CHIEF COMPLAINT: Follow-Up for HTN and "Bladder and Kidney Pain" HISTORY OF PRESENT ILLNESS: John Nieto is a 63 year old female who has a pas t medical history of Depression, Frequent falls, Hyperlipidemia, Hypertension, I BS (irritable bowel syndrome), Low back pain, Osteoporosis b/l hip, and Seizure. She also has no past medical history of Pap smear abnormality of cervix, STD (s exually transmitted disease), or Tuberculosis. who presents for routine follow-u p. At last visit, patient was complaining of "passing lots of kidney stones" th at resembled "spikes" and passed a "white one the size of a thumbnail." At that time, we advised using a urine strainer so that we could see the stones. They did not follow-up regarding this and denies reoccurrence. Today, she is complai fly of persistent bladder and back pain that is causing her "to have more seizu res." She has tried phenazopyridine without much relief. On 02/16/2019, patient had a radiofrequency ablation of L2, L3, and L4 medial branches. At that time, patient stated her "pain was gone" but has now returned. Denies fever or chill s. Denies gross hematuria, slow stream, feeling of not emptying bladder, foul-s melling urine, and/or foamy/frothy urine. Denies chest pain, palpitations, dizz iness, syncope, presyncope, or peripheral edema. No peripheral edema. Endorses compliance with medications. It is important to note that she had three psycho genic nonepileptic events during this visit. MEDICATIONS: Current Outpatient Medications on File Prior to Visit Medication Sig Dispense Refill phenazopyridine 200 mg tablet Take 1 tablet by mouth 3 (three) times daily. 9 tablet 0 acetaminophen 500 mg tablet Take 500 mg by mouth. acetaminophen-codeine 300-30 mg tablet Take 1 tablet by mouth daily. 2 famotidine 20 mg tablet Take 20 mg by mouth. fexofenadine 180 mg tablet Take 180 mg by mouth. KCL 20 mEq tablet TAKE 2 TABLETS BY MOUTH NOW FOR 1 DOSE 0 metFORMIN 1,000 mg tablet Take 1,000 mg by mouth. montelukast 10 mg tablet Take 10 mg by mouth. PARoxetine 20 mg tablet Take 20 mg by mouth. SERTraline 100 mg tablet Take 100 mg by mouth. LISINOPRIL 5 mg tablet TAKE 1 TABLET BY MOUTH EVERY DAY 30 tablet 1 mirtazapine 30 mg tablet Take 1 tablet by mouth at bedtime. 30 tablet 0 GABAPENTIN 400 mg capsule TAKE 1 CAPSULE BY MOUTH THREE TIMES A DAY 90 capsu le 2 AMLODIPINE 5 mg tablet TAKE 1 TABLET BY MOUTH EVERY DAY 30 tablet 0 CBD oil (ABELARDO'S HOPE) 20:1 with safflower Take by mouth as needed (Seizu re, pain). dicyclomine 20 mg tablet omeprazole 40 mg capsule TAKE 1 CAPSULE BY MOUTH EVERY DAY 3 VITAMIN D2 50,000 unit capsule TAKE ONE CAPSULE BY MOUTH ONCE A WEEK 2 cetirizine 10 mg tablet Take 10 mg by mouth every morning. 3 LORazepam 0.5 mg tablet Take 0.5 mg by mouth daily. hydrOXYzine 25 mg tablet Take 25 mg by mouth every 6 (six) hours. Current Facility-Administered Medications on File Prior to Visit Medication Dose Route Frequency Provider Last Rate Last Dose lactated ringers IV infusion 1,000 mL 1,000 mL IV Infusion CONTINUOUS Sukh Murray MD PHYSICAL EXAMINATION: Vitals: 03/01/19 1431 03/01/19 1433 BP: (!) 155/92 (!) 167/107 BP Location: Right arm Patient Position: Standing Standing BP CUFF SIZE: Adult Large Pulse: 89 94 Resp: 18 Temp: 36.8 C (98.3 F) TempSrc: Oral SpO2: 94% Weight: 182 lb (82.6 kg) GENERAL: Patient is awake, alert, oriented, and cooperative. SKIN: No significant skin lesions, and/or color changes. HEENT: Normocephalic, atraumatic, pink conjunctivae NECK: Supple CHEST: Clear to auscultation and percussion. HEART: Normal S1, S2, without murmurs, rubs, and/or gallops. EXTREMITIES: No clubbing, cyanosis, and/or edema. NEURO: In wheelchair. No non-epileptic seizures during this visit. LABORATORY DATA: BMP NA (mmol/L) Date Value 03/01/2019 144 K (mmol/L) Date Value 03/01/2019 4.4 CALCIUM (mg/dL) Date Value 03/01/2019 10.1 CL (mmol/L) Date Value 03/01/2019 104 BUN (mg/dL) Date Value 03/01/2019 17 CREATININE (mg/dL) Date Value 03/01/2019 0.77 GLUCOSE (mg/dL) Date Value 03/01/2019 98 CO2 TOTAL (mmol/L) Date Value 03/01/2019 31 ASSESSMENT/PLAN: Calcium oxalate crystals in urine (primary encounter diagnosis) Comment: Patient has history calcium oxalate that are currently resolved per uri nalysis. Repeat CTAP (10/18/2018) showed no hydronephrosis, stones, or masses. Serum creatinine stable and WNL. UA unremarkable. Plan: Continue HCTZ 25mg daily. Hypertension, unspecified type Comment: Today, blood pressure is elevated due to psychogenic nonepileptic event s. Difficult to assess. Would like to increase lisinopril and decrease amlodip ine to reduce pill burden. We've been encouraging home blood pressure monitorin g so that we can adjust these doses but without compliance. Plan: Continue HCTZ 25mg daily. Continue lisinopril 5mg daily. Continue amlodi pine 5mg daily. Keep home record BID for one week. Call office if BP is > 150/90 or <100 systolic persistently. Today, due to seizure-like events, it is not an appropriate time for adjusting medications. Psychogenic Nonepileptic Events Comment: Patient had three events due to lower back per her report during this clinic visit. Plan: Continue to follow neurology. FOLLOW-UP: PRN. If more convenient, may follow PCP closely to adjust antihyper tensives to reduce pill burden as her kidney function is normal. Zoila Rodas, RN, MSN, AGPCNP- Nurse Practitioner Division of Nephrology & Hypertension 4.[address] [facility] O [phone] F [phone] M [phone] [email or web address] Louie Garcia RN - 03/01/2019 1:30 PM CDT Ns stat called,Pt has history of seizures, having multiple seizures in room. Hus band at side holding patient providing safety from injury. Pt came out of seizu re AOX3. Odilia Rodas at side with assessment, visit continued. No new rx given a t time. V/S 143/79, 87, 95%. Pt left in no distress * Devang Turk MA - 03/01/2019 1:30 PM CDT John Nieto is a 64 year old female seen for a follow up visit; patient has co mes to clinic independent in ambulation for follow up Chief Complaint Patient presents with Follow-up Kidney Problem . Pt comes accompanied by self and spouse . Pt in NAD w/ pain reported 02/28. Pt preferred language is Spanish. Pt. denies f all in last 12 months. Allergies and medications reviewed and updated. Patient Active Problem List Diagnosis Psychogenic nonepileptic seizure Recurrent UTI Diarrhea, unspecified type Frequent falls Obesity (BMI 30-39.9) Chronic lumbar radiculopathy Spondylosis of lumbar region without myelopathy or radiculopathy Acute stress reaction Altered gait Episodic altered awareness Essential hypertension GERD (gastroesophageal reflux disease) History of asthma History of depression Hypokalemia Left sided numbness Precordial pain Seizure Urinary tract infection without hematuria Allergies Allergen Reactions Pcn [Penicillins] Other - [...] weakness t Iodine Rash Nitrofurantoin Rash Other High Falls-3s Anaphylaxis steroid Sulfa (Sulfonamide Antibiotics) Other - See comments and Swelling Current Outpatient Medications on File Prior to Visit Medication Sig Dispense Refill phenazopyridine 200 mg tablet Take 1 tablet by mouth 3 (three) times daily. 9 tablet 0 acetaminophen 500 mg tablet Take 500 mg by mouth. acetaminophen-codeine 300-30 mg tablet Take 1 tablet by mouth daily. 2 famotidine 20 mg tablet Take 20 mg by mouth. fexofenadine 180 mg tablet Take 180 mg by mouth. KCL 20 mEq tablet TAKE 2 TABLETS BY MOUTH NOW FOR 1 DOSE 0 metFORMIN 1,000 mg tablet Take 1,000 mg by mouth. montelukast 10 mg tablet Take 10 mg by mouth. PARoxetine 20 mg tablet Take 20 mg by mouth. SERTraline 100 mg tablet Take 100 mg by mouth. LISINOPRIL 5 mg tablet TAKE 1 TABLET BY MOUTH EVERY DAY 30 tablet 1 mirtazapine 30 mg tablet Take 1 tablet by mouth at bedtime. 30 tablet 0 GABAPENTIN 400 mg capsule TAKE 1 CAPSULE BY MOUTH THREE TIMES A DAY 90 capsu le 2 AMLODIPINE 5 mg tablet TAKE 1 TABLET BY MOUTH EVERY DAY 30 tablet 0 CBD oil (ABELARDO'S HOPE) 20:1 with safflower Take by mouth as needed (Seizu re, pain). dicyclomine 20 mg tablet omeprazole 40 mg capsule TAKE 1 CAPSULE BY MOUTH EVERY DAY 3 VITAMIN D2 50,000 unit capsule TAKE ONE CAPSULE BY MOUTH ONCE A WEEK 2 hydroCHLOROthiazide 25 mg tablet Take 1 tablet by mouth daily. 90 tablet 3 cetirizine 10 mg tablet Take 10 mg by mouth every morning. 3 LORazepam 0.5 mg tablet Take 0.5 mg by mouth daily. hydrOXYzine 25 mg tablet Take 25 mg by mouth every 6 (six) hours. Current Facility-Administered Medications on File Prior to Visit Medication Dose Route Frequency Provider Last Rate Last Dose lactated ringers IV infusion 1,000 mL 1,000 mL IV Infusion CONTINUOUS Sukh Murray MD .fyp documented in this encounter Plan of Treatment Care Team Description Date Type Specialty Mio Castro MD [address] [place] [address] [phone] 04/26/2019 Office Visit Cardiology Dieter Zhou MD [id number] [place], [place] [id number] 07/05/2019 Office Visit Pulmonary Disease Sukh Harris MD [address] [facility] [id number] [place], [place] [address] 07/13/2019 Office Visit Pain Medicine Zoila Rodas AGNP [address] [place] [address] [phone] 08/30/2019 Office Visit Nephrology Health Maintenance Due [...] Comments Procedure Name Priority Date/Time Associated Diagnosis PROTEIN CREAT RATIO URINE Routine 03/01/2019 Hypertension, unspecified RANDOM 4:34 PM CDT type URINALYSIS Routine 03/01/2019 Hypertension, unspecified 4:34 PM CDT type PROFILE / HEMOGRAM Routine 03/01/2019 Hypertension, unspecified 3:36 PM CDT type BASIC METABOLIC PANEL Routine 03/01/2019 Hypertension, unspecified (NA, K, CL, CO2, GLUCOSE, 3:36 PM CDT type BUN, CREATININE, CA) MAGNESIUM Routine 03/01/2019 Hypertension, unspecified 3:36 PM CDT type PHOSPHORUS Routine 03/01/2019 Hypertension, unspecified 3:36 PM CDT type documented in this encounter Results * PROTEIN CREAT RATIO URINE RANDOM (03/01/2019 4:34 PM CDT) T. PROT U 7 mg/dL [facility] CREAT U 102.0 mg/dL [facility] Protein/Creatin 0.1 0.0 - 2.0 [facility] ine Ratio [facility] Specimen Urine - URINE, CLEAN CATCH Performing Organization Address [facility] Corporationcode Phone Number [facility] CLIA: [id number], [address] [place], [place] [id number] [facility] * URINALYSIS (03/01/2019 4:34 PM CDT) APPEARANCE Hazy (A) Clear [facility] COLOR Yellow Yellow [facility] PH 5.0 4.8 - 8.0 [facility] SP GRAVITY 1.017 1.003 - 1.030 [facility] GLU U QUAL Normal Normal [facility] BLOOD Negative Negative [facility] KETONES Negative Negative [facility] PROTE[facility] Negative Negative [facility] UROBILIN Normal Normal [facility] BILIRUBIN Negative Negative [facility] NITRITE Negative Negative [facility] LEUK MICHAEL 75/uL (A) Negative [facility] RBC/HPF 1 0 - 3 HPF [facility] WBC/HPF 2 0 - 5 HPF [facility] BACTERIA Few (A) Negative [facility] MUCOUS Slight (A) Negative LPF [facility] SQ EPITH 1 <=2 HPF [facility] Specimen Urine - URINE, CLEAN CATCH Performing Organization Address City/[facility]/Zipcode Phone Number [facility] CLIA: [id number], [address] [place] [address] [facility] * MAGNESIUM (03/01/2019 3:36 PM CDT) MAGNESIUM 2.0 1.7 - 2.4 mg/dL [facility] Specimen Blood Performing Organization Address City/[facility]/Zipcode Phone Number [facility] CLIA: [id number], [address] [place] [address] [facility] * PHOSPHORUS (03/01/2019 3:36 PM CDT) PHOSPHORUS 3.7 2.5 - 5.0 mg/dL [facility] Specimen Blood Performing Organization Address City/[facility]/Zipcode Phone Number [facility] CLIA: [id number], [address] [place] [address] [facility] * BASIC METABOLIC PANEL (03/01/2019 3:36 PM CDT) NA 144 135 - 145 mmol/L [facility] K 4.4 3.5 - 5.0 mmol/L [facility] CL 104 98 - 108 mmol/L [facility] CO2 TOTAL 31 23 - 31 mmol/L [facility] AGAP 9 2 - 16 [facility] BUN 17 7 - 23 mg/dL [facility] GLUCOSE 98 70 - 110 mg/dL [facility] CREATININE 0.77 0.50 - 1.04 mg/dL [facility] CALCIUM 10.1 8.6 - 10.6 mg/dL [facility] eGFR 75.7 mL/min/1.73m2 [facility] Calculation [facility] (Non-[facility] [place]) eGFR 91.8 mL/min/1.73m2 [facility] Calculation [facility] ([facility]) Specimen Blood Narrative Performed At Association of Glomerular Filtration Rate (GFR) and Staging of Kidney Disease* [facility] + + + + [facility] | GFR (mL/min/1.73 m2)| With Kidney Damage|Without [...] tests). Performing Organization Address City/State/Zipcode Phone Number [facility] CLIA: [id number], [address] [place] [address] [facility] * CBC W/NO DIFF (03/01/2019 3:36 PM CDT) WBC 6.21 4.30 - 11.10 [facility] 10*3/L [facility] RBC 5.05 3.93 - 5.25 10*6/L [facility] HGB 14.2 11.6 - 15.0 g/dL [facility] HCT 44.0 35.7 - 45.2 % [facility] MCH 28.1 25.9 - 32.8 pg [facility] MCV 87.1 80.6 - 95.5 fL [facility] MCHC 32.3 31.6 - 35.1 g/dL [facility] PLT 207 166 - 358 10*3/L [facility] MPV 10.5 9.5 - 12.9 fL [facility] RDW-CV 13.9 12.0 - 15.5 % [facility] RDW-SD 44.2 39.0 - 49.9 fL [facility] NRBC x10^3 <0.01 10*3/L [facility] NRBC/100 WBC 0.0 0.0 - 10.0 /100 WBCs [facility] IPF % 3.8Comment: Platelet count 1.3 - 7.7 % [facility] measured by fluorescence [facility] method. [facility] Specimen Blood Performing Organization Address City/State/Zipcode Phone Number [facility] CLIA: [id number], [address] [place] [address] [facility] documented in this encounter Visit Diagnoses Diagnosis Hypertension, unspecified type - Primary documented in this encounter Insurance Type Payer Benefit Subscriber ID Effective Phone Address Plan / Dates Group [facility] [id number] 2019-P [phone] [address] [facility] [id number] [place] [address] documented as of this encounter
--- OUTSIDE RECORDS SUMMARY | 2019-06-09 13:28 | XMS REPORT | Summary of Care ---
Author Author [facility] - Health Organization [facility] - Health Address Unknown Phone Unavailable Care Team Providers Care Numerical Control Lathe Operator Name Role Phone Fabien Fernandes MD Unavailable Leena Bañuelosynh PCP Reason for Visit * Reason Comments Refill Request Encounter Details Care Team Description Date Type Department Lidya Patel MD [address] [place] [address] Refill Request 03/01/2019 Refill [facility] [address] [place] [address] Allergies Comments Active Allergy Reactions Severity Noted Date Azithromycin Itching 01/07/2019 Ciprofloxacin Rash 01/27/2018 Clindamycin Other - See Medium 10/05/2016 comments, Itching Clonazepam Itching, Medium 11/23/2017 Rash, Swelling All steroids-muscle weakness t Corticosteroids Rash 01/20/2016 (Glucocorticoids) Iodine Rash 10/05/2016 Lincomycin Rash Medium 09/15/2017 Nitrofurantoin Rash 01/27/2018 steroid Other Henefer-3s Anaphylaxis 01/27/2018 States it would be fatal Penicillins Other - See High 01/20/2016 comments, Shortness of Breath Sulfa (Sulfonamide Other - See 01/20/2016 Antibiotics) comments, Swelling New string of tetanus- went to ER , medication for throat closing up Tetanus Vaccines And Swelling High 01/20/2016 Toxoid documented as of this encounter (statuses as of 03/03/2019) Medications End Date Status Medication Sig Dispensed [...] mouth 3 9 Dysuria (three) times daily. 03/02/2019 Discontinued hydroCHLOROthiazide 25 mg Take 1 tablet 90 tablet 3 tablet by mouth 8 daily. Status Hospital, Clinic, or Ordered Dose Route Frequency Start End Date Other Facility Date Administered Medication Active lactated ringers IV 1000 mL IV Infusion CONTINUOUS 02/10/20 infusion 1,000 mL 19 documented as of this encounter (statuses as of 03/03/2019) Active Problems Problem Noted Date Chronic lumbar radiculopathy 01/12/2019 Overview: Added automatically from request for surgery [id number] 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/12/2019 Overview: Added automatically from request for surgery [id number] Obesity (BMI 30-39.9) 12/16/2018 Recurrent UTI 05/17/2018 [...] as of this encounter (statuses as of 03/03/2019) Resolved Problems Problem Noted Date Resolved Date 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/12/2019 01/16/2019 Overview: Added automatically from request for surgery [id number] documented as of this encounter (statuses as of 03/03/2019) Immunizations Name Administration Dates Next Due Influenza [...] Castro MD [address] [place] [phone] 04/26/2019 Office Visit Cardiology Dieter Zhou MD [id number] [place] [address] [phone] 07/05/2019 Office Visit Pulmonary Disease Sukh Harris MD [address] [facility] [address] [place] [address] [phone] 07/13/2019 Office Visit Pain Medicine Zoila Rodas AGNP [address] [place] [phone] 08/30/2019 Office Visit Nephrology Health Maintenance Due [...] Effective Phone Address Plan / Dates Group [facility] [id number] 2019-P [phone] [address] [facility] [address] [place] [address] documented as of this encounter
--- OUTSIDE RECORDS SUMMARY | 2019-06-09 13:28 | XMS REPORT | Summary of Care ---
Author Author [facility] - Health Organization [facility] - Health Address Unknown Phone Unavailable Care Team Providers Care Multiple Cut Off Saw Operator Name Role Phone Fabien Fernandes MD Unavailable Leena Bañuelosynpatricia MURILLO PCP Reason for Visit * Reason Comments Refill Request Encounter Details Care Team Description Date Type Department Leticia Handy MD [address] [place] [phone] Refill Request 03/05/2019 Refill [facility] Internal Medicine- [facility] [place] [phone] Allergies Comments Active Allergy Reactions Severity Noted Date Azithromycin Itching 01/07/2019 Ciprofloxacin Rash 01/27/2018 Clindamycin Other - See Medium 10/05/2016 comments, Itching Clonazepam Itching, Medium 11/23/2017 Rash, Swelling All steroids-muscle weakness t Corticosteroids Rash 01/20/2016 (Glucocorticoids) Iodine Rash 10/05/2016 Lincomycin Rash Medium 09/15/2017 Nitrofurantoin Rash 01/27/2018 steroid Other Baxter-3s Anaphylaxis 01/27/2018 States it would be fatal Penicillins Other - See High 01/20/2016 comments, Shortness of Breath Sulfa (Sulfonamide Other - See 01/20/2016 Antibiotics) comments, Swelling New string of tetanus- went to ER , medication for throat closing up Tetanus Vaccines And Swelling High 01/20/2016 Toxoid documented as of this encounter (statuses as of 03/07/2019) Medications End Date Status Medication Sig Dispensed [...] by mouth at 9 Pseudoseizures bedtime. Active acetaminophen 500 mg Take 500 mg [...] mouth 9 Hypertension, unspecified daily. type Active LISINOPRIL 5 mg TAKE 1 TABLET 30 tablet 1 tabletIndications: BY MOUTH 9 Essential hypertension EVERY DAY 03/05/2019 Discontinued LISINOPRIL 5 mg TAKE 1 TABLET 30 tablet 1 tabletIndications: BY MOUTH 9 Essential hypertension EVERY DAY Status Hospital, Clinic, or Ordered Dose Route Frequency Start End Date Other Facility Date Administered Medication Active lactated ringers IV 1000 mL IV Infusion CONTINUOUS 02/10/20 infusion 1,000 mL 19 documented as of this encounter (statuses as of 03/07/2019) Active Problems Problem Noted Date Chronic lumbar radiculopathy 01/12/2019 Overview: Added automatically from request for surgery [id number] 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/12/2019 Overview: Added automatically from request for surgery [id number] Obesity (BMI 30-39.9) 12/16/2018 Recurrent UTI 05/17/2018 [...] as of this encounter (statuses as of 03/07/2019) Resolved Problems Problem Noted Date Resolved Date 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/12/2019 01/16/2019 Overview: Added automatically from request for surgery [id number] documented as of this encounter (statuses as of 03/07/2019) Immunizations Name Administration Dates Next Due Influenza [...] Castro MD [address] MACK [address] [place] [phone] 04/26/2019 Office Visit Cardiology Dieter Zhou MD [id number] [place] [address] [phone] 07/05/2019 Office Visit Pulmonary Disease Sukh Harris MD [address] [facility] [id number] [place] [address] [phone] 07/13/2019 Office Visit Pain Medicine Zoila Rodas AGNP [address] [place] [address] [phone] 08/30/2019 Office Visit Nephrology Health Maintenance Due [...] filedocumented in this encounter Visit Diagnoses Diagnosis Essential hypertension Unspecified essential hypertension documented in this encounter Insurance Type Payer Benefit Subscriber ID Effective Phone Address Plan / Dates Group [facility] [id number] 2019-P [phone] [address] [facility] [address] [place] [address] documented as of this encounter
--- OUTSIDE RECORDS SUMMARY | 2019-06-09 13:28 | XMS REPORT | Summary of Care ---
Author Author [facility] - Health Organization [facility] - Health Address Unknown Phone Unavailable Care Team Providers Care Scrip Clerk Name Role Phone Fabien Fernandes MD Unavailable Leena Bañuelosynpatricia MURILLO PCP Reason for Visit * Reason Comments Follow-up Kidney Problem Encounter Details Care Team Description Date Type Department Zoila Rodas AGNP [address] [place] [phone] Hypertension, unspecified type (Primary Dx) 03/01/2019 Office Visit [facility] [address] [place] [phone] Allergies Comments Active Allergy Reactions Severity Noted Date Azithromycin Itching 01/07/2019 Ciprofloxacin Rash 01/27/2018 Clindamycin Other - See Medium 10/05/2016 comments, Itching Clonazepam Itching, Medium 11/23/2017 Rash, Swelling All steroids-muscle weakness t Corticosteroids Rash 01/20/2016 (Glucocorticoids) Iodine Rash 10/05/2016 Lincomycin Rash Medium 09/15/2017 Nitrofurantoin Rash 01/27/2018 steroid 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 States it would be fatal [...] Overview: Added automatically from request for surgery [id number] 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/12/2019 Overview: Added automatically from request for surgery [id number] Obesity (BMI 30-39.9) 12/16/2018 Recurrent UTI 05/17/2018 [...] Overview: Added automatically from request for surgery [id number] documented as of this encounter (statuses as [...] Practitioner Division of Nephrology & Hypertension 4.200 [facility] O [phone] F [phone] M [phone] [email or web address] Louie Garcia RN - 03/01/2019 1:30 [...] pain reported 02/28. Pt preferred language is Romansh. Pt. denies f all in last 12 [...] weakness t Iodine Rash Nitrofurantoin Rash Other Solomon-3s Anaphylaxis steroid Sulfa (Sulfonamide Antibiotics) Other - [...] Castro MD [address] [place] [phone] 04/26/2019 Office Visit Cardiology Dieter Zhou MD [id number] [place], [place] [phone] 07/05/2019 Office Visit Pulmonary Disease Sukh Harris MD [address] [facility] [id number] [place], [place] [phone] 07/13/2019 Office Visit Pain Medicine Zoila Rodas AGNP [address] [place] [phone] 08/30/2019 Office Visit Nephrology Health Maintenance Due [...] PM CDT) T. PROT U 7 mg/dL [facility] CREAT U 102.0 mg/dL [facility] Protein/Creatin 0.1 0.0 - 2.0 [facility] ine Ratio [facility] Specimen Urine - URINE, CLEAN CATCH Performing Organization Address [facility] Cent[facility]ode Phone Number [facility] CLIA: [id number], [address] [place], [place] [phone] [facility] * URINALYSIS (03/01/2019 4:34 PM CDT) APPEARANCE Hazy (A) Clear [facility] COLOR Yellow Yellow [facility] PH 5.0 4.8 - 8.0 [facility] SP GRAVITY 1.017 1.003 - 1.030 [facility] GLU U QUAL Normal Normal [facility] BLOOD Negative Negative [facility] KETONES Negative Negative [facility] PROTEIN Negative Negative [facility] UROBILIN Normal Normal [facility] BILIRUBIN Negative Negative [facility] NITRITE Negative Negative [facility] LEUK MICHAEL 75/uL (A) Negative [facility] RBC/HPF 1 0 - 3 HPF [facility] WBC/HPF 2 0 - 5 HPF [facility] BACTERIA Few (A) Negative [facility] MUCOUS Slight (A) Negative LPF [facility] SQ EPITH 1 <=2 HPF [facility] Specimen Urine - URINE, CLEAN CATCH Performing Organization Address City/[facility]/Zipcode Phone Number [facility] CLIA: [id number], [address] [place] [address] [facility] * MAGNESIUM (03/01/2019 3:36 PM CDT) MAGNESIUM 2.0 1.7 - 2.4 mg/dL [facility] Specimen Blood Performing Organization Address City/[facility]/Zipcode Phone Number [facility] CLIA: [id number], [address] [place] [address] [facility] * PHOSPHORUS (03/01/2019 3:36 PM CDT) PHOSPHORUS 3.7 2.5 - 5.0 mg/dL [facility] Specimen Blood Performing Organization Address City/[facility]/Zipcode Phone Number [facility] CLIA: [id number], [address] [place] [address] [facility] * BASIC METABOLIC PANEL (03/01/2019 3:36 PM CDT) NA 144 135 - 145 mmol/L [facility] K 4.4 3.5 - 5.0 mmol/L [facility] CL 104 98 - 108 mmol/L [facility] CO2 TOTAL 31 23 - 31 mmol/L [facility] AGAP 9 2 - 16 [facility] BUN 17 7 - 23 mg/dL [facility] GLUCOSE 98 70 - 110 mg/dL [facility] CREATININE 0.77 0.50 - 1.04 mg/dL [facility] CALCIUM 10.1 8.6 - 10.6 mg/dL [facility] eGFR 75.7 mL/min/1.73m2 [facility] Calculation [facility] ([facility]) eGFR 91.8 mL/min/1.73m2 [facility] Calculation [facility] ([facility]) Specimen Blood Narrative Performed At Association of Glomerular Filtration Rate (GFR) and Staging of Kidney Disease* [facility] + + + + [facility] | GFR (mL/min/1.73 m2)| With Kidney Damage|Without [...] tests). Performing Organization Address City/State/Zipcode Phone Number [facility] CLIA: [id number], [address] [place] [address] [facility] * CBC W/NO DIFF (03/01/2019 3:36 PM CDT) WBC 6.21 4.30 - 11.10 [facility] 10*3/L [facility] RBC 5.05 3.93 - 5.25 10*6/L [facility] HGB 14.2 11.6 - 15.0 g/dL [facility] HCT 44.0 35.7 - 45.2 % [facility] MCH 28.1 25.9 - 32.8 pg [facility] MCV 87.1 80.6 - 95.5 fL [facility] MCHC 32.3 31.6 - 35.1 g/dL [facility] PLT 207 166 - 358 10*3/L [facility] MPV 10.5 9.5 - 12.9 fL [facility] RDW-CV 13.9 12.0 - 15.5 % [facility] RDW-SD 44.2 39.0 - 49.9 fL [facility] NRBC x10^3 <0.01 10*3/L [facility] NRBC/100 WBC 0.0 0.0 - 10.0 /100 WBCs [facility] IPF % 3.8Comment: Platelet count 1.3 - 7.7 % [facility] measured by fluorescence [facility] method. [facility] Specimen Blood Performing Organization Address City/State/Zipcode Phone Number [facility] CLIA: [id number], [address] [place] [address] [facility] documented in this encounter Visit Diagnoses Diagnosis Hypertension, unspecified type - Primary documented in this encounter Insurance Type Payer Benefit Subscriber ID Effective Phone Address Plan / Dates Group [facility] [id number] 2019-P [phone] [address] [employer] [facility] [address] [place] [address] documented as of this encounter
--- OUTSIDE RECORDS SUMMARY | 2019-06-09 13:29 | XMS REPORT | Clinical Summary ---
Author Author [facility] - Health Organization [facility] - Health Address Unknown Phone Unavailable Care Team Providers Care Head Bellhop Captain Name Role Phone Fabien Fernandes MD Unavailable Marvin Oconnor MD PCP Cady Team 25 Unavailable Allergies Comments Active Allergy Reactions Severity Noted Date Azithromycin Itching 01/07/2019 Ciprofloxacin Rash 01/27/2018 Clindamycin Other - See Medium 10/05/2016 comments, Itching Clonazepam Itching, Medium 11/23/2017 Rash, Swelling All steroids-muscle weakness t Corticosteroids Other - See 01/20/2016 (Glucocorticoids) comments Iodine Rash 10/05/2016 Lincomycin Rash Medium 09/15/2017 Nitrofurantoin Rash 01/27/2018 Other [place]-3s Anaphylaxis 01/27/2018 States it would be fatal Penicillins Other - See High 01/20/2016 comments, Shortness of Breath Shellfish Derived Other - See 03/18/2019 comments Sulfa (Sulfonamide Other - See 01/20/2016 Antibiotics) comments, Swelling New string of tetanus- went to ER , medication for throat closing up Tetanus Vaccines And Swelling High 01/20/2016 Toxoid Medications End Date Status Medication Sig Dispensed [...] A WEEK Active dicyclomine 20 mg tablet Take 20 mg by 0 mouth 4 9 (four) times daily. Active CBD oil (ABELARDO'S HOPE) Take by 0 20:1 with safflower mouth as needed (Seizure, pain). Active famotidine 20 mg tablet Take 20 mg by 0 mouth. 8 Active SERTraline 100 mg tablet Take 100 mg 0 by mouth. Active montelukast 10 mg tablet Take 10 mg by 0 mouth. 8 Active hydroCHLOROthiazide 25 mg Take 1 tablet 90 tablet 3 tabletIndications: by mouth 9 Hypertension, unspecified daily. type Active GABAPENTIN 400 mg TAKE 1 90 capsule 2 capsuleIndications: CAPSULE BY 9 Radiculopathy of MOUTH THREE thoracolumbar region TIMES A DAY Active amitriptyline 10 mg Take 10 mg by 0 tablet mouth at bedtime. Active triamcinolone 55 mcg Use 1 [place] 1 Bottle 1 nasal inhalerIndications: in each 9 Viral URI with cough, nostril 2 Nasal sinus congestion (two) times daily. Active LISINOPRIL 5 mg TAKE 1 TABLET 30 tablet 1 tabletIndications: BY MOUTH 9 Essential hypertension EVERY DAY Active SERTraline 25 mg Take one 60 tablet 1 tabletIndications: tablet by 9 Psychogenic nonepileptic mouth daily seizure Active mirtazapine 15 mg Take 1 tablet 30 tablet 1 tabletIndications: by mouth at 9 Psychogenic nonepileptic bedtime. seizure 04/06/2019 cefpodoxime 200 mg Take 1 tablet 20 tablet 0 tabletIndications: Acute by mouth 2 9 maxillary sinusitis, (two) times recurrence not specified daily for 10 days. Status Hospital, Clinic, or Ordered Dose Route Frequency Start End Date Other Facility Date Administered Medication Ended LORazepam (ATIVAN) 2 mg IM ONCE 03/27/20 injection 2 mg 19 9 Ended lidocaine 1% (XYLOCAINE) Bladder Irri ONCE 03/29/20 20 mL, sodium bicarbonate 19 9 1 mEq/mL (8.4 %) 5 mEq, heparin 50,000 Units, water for injection, sterile 15 mL irrigationIndications: Chronic interstitial cystitis Ended lidocaine 1% (XYLOCAINE) Bladder Irri ONCE 04/05/20 20 mL, sodium bicarbonate 19 9 1 mEq/mL (8.4 %) 5 mEq, heparin 50,000 Units, water for injection, sterile 15 mL irrigationIndications: Chronic interstitial cystitis Active Problems Problem Noted Date Chronic lumbar radiculopathy 01/12/2019 Overview: Added automatically from request for surgery [id number] 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/12/2019 Overview: Added automatically from request for surgery [id number] Obesity (BMI 30-39.9) 12/16/2018 Recurrent UTI 05/17/2018 Diarrhea, unspecified type 05/17/2018 Left sided numbness 01/20/2018 Altered gait 11/30/2017 Precordial pain 11/30/2017 Urinary tract infection without hematuria 11/25/2017 Psychogenic nonepileptic seizure 03/18/2016 Seizure 03/16/2016 Acute stress reaction 03/08/2016 Essential hypertension 03/08/2016 GERD (gastroesophageal reflux disease) 03/08/2016 History of asthma 03/08/2016 History of depression 03/08/2016 Hypokalemia 03/08/2016 Episodic altered awareness 02/19/2016 Frequent falls Resolved Problems Problem Noted Date Resolved Date 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/12/2019 01/16/2019 Overview: Added automatically from request for surgery [id number] Encounters Care Team Description Date Type Specialty Leticia Handy MD Refill Request 04/06/2019 Refill Internal Medicine Gerber Ni MD Nurse, [facility] Chronic interstitial cystitis (Primary Dx) 04/05/2019 Nurse Visit Obstetrics & Gynecology Marvin Oconnor MD Viral URI with cough (Primary Dx); Nasal sinus congestion; Encounter for HCV screening test for low risk patient 04/03/2019 Office Visit Internal Medicine Jessie De Leon MD 03/31/2019 Office Visit Allergy & Immunology: Internal Medicine Gerber Ni MD Nurse, [facility] Chronic interstitial cystitis (Primary Dx) 03/29/2019 Nurse Visit Obstetrics & Gynecology Charlotte Mijares RN ED F/U 03/28/2019 Patient Case Management Outreach Agata Erazo FNP Acute maxillary sinusitis, recurrence not specified (Primary Dx); Seizure-like activity; Chest pressure; Congestion of nasal sinus; Cough 03/27/2019 Emergency Emergency Medicine Unknown, Attending Nurse, [facility] Seizure (Primary Dx) 03/27/2019 Urgent Care Family Medicine Eleno Mcnamara MD Chronic interstitial cystitis (Primary Dx); Mixed stress and urge urinary incontinence; Recurrent UTI (urinary tract infection) 03/24/2019 Office Visit Obstetrics & Gynecology Doctor Unassigned, [place] 03/24/2019 Orders Only Charlotte Mijares RN Transition Of Care 03/22/2019 Transition of Case Management Care Giuliano Edwards, Maggie Mukherjee MD Seizure 03/18/2019 Emergency Medicine - Inpatient only - 03/21/2019 Leena Bañuelos DO Medical Records 03/15/2019 Telephone Internal [place] Lab Results 03/15/2019 Telephone Internal [place] MD Mixed incontinence urge and stress (Primary Dx); Bladder pain 03/13/2019 Office Visit Internal Medicine Zoila Rodas AGNP Notification 03/09/2019 Telephone Nephrology Zoila Rodas AGNP Assessment; Prescription; Allergic reaction 03/08/2019 Telephone Nephrology Sukh Harris MD Refill Request 03/06/2019 Refill Pain Medicine Leticia Handy MD Refill Request 03/05/2019 Refill Internal Medicine Zoila Rodas AGNP Vtc-Lab Hypertension, unspecified type 03/01/2019 Devulcanizer Loader Phlebotomy Visit Zoila Rodas AGNP Hypertension, unspecified type (Primary Dx) 03/01/2019 Office Visit Nephrology Doctor Unassigned, [place] 03/01/2019 Orders Only Lidya Patel MD Refill Request 03/01/2019 Refill Nephrology Carmel Gamez MD Assessment 02/17/2019 Telephone Surgery Leena Bañuelos DO Forms (wheel chair) 02/16/2019 Telephone Internal Medicine Isak Butt MD Forms 02/16/2019 Telephone Internal Medicine Esther Vickers MD Randle, Darlene, RN 02/15/2019 Anesthesia Surgery Event Sukh Harris MD RADIOFREQUENCY THERMOCOAGULATION 02/15/2019 Surgery Surgery Sukh Harris MD Spondylosis of lumbar region without myelopathy or radiculopathy 02/15/2019 Hospital Surgery Encounter Doctor Unassigned, [place] 02/15/2019 Orders Only Isak Butt MD Forms 02/15/2019 Telephone Internal Medicine Dieter Zhou MD Test, [facility] Pulmonary Function Dyspnea on exertion 02/10/2019 Devulcanizer Loader Pulmonary Function Visit Technologist Dieter Zhou MD 02/10/2019 Orders Only Pulmonary Disease Sukh Harris MD Spondylosis of lumbar region without myelopathy or radiculopathy (Primary Dx) 02/09/2019 Office Visit Pain Medicine Leena Bañuelos DO Forms (wheelchair) 02/06/2019 Telephone Internal Medicine Dieter Zhou MD 02/04/2019 [facility] Radiology Encounter Doctor Unassigned, [place] 02/02/2019 Orders Only Dieter Zhou MD Lung nodule (Primary Dx); Dyspnea on exertion; Chest pain, unspecified type 02/01/2019 Office Visit Pulmonary Disease Mark Pacheco MD Refill Request 02/01/2019 Refill Family Medicine Gerber Ni MD Mixed urge and stress incontinence (Primary Dx); Chronic interstitial cystitis 01/31/2019 Office Visit Obstetrics & Gynecology Doctor Unassigned, [place] 01/31/2019 Orders Only Jamison Bañuelos MD Forms 01/31/2019 Telephone Internal Medicine Alex Sofia MD Assessment 01/25/2019 Telephone Surgery Jamison Escobar MD Tamayo, Corina, RN 01/23/2019 Anesthesia Surgery Event Sukh Harris MD MEDIAL BRANCH BLOCK 01/23/2019 Surgery Surgery Sukh Harris MD Chronic lumbar radiculopathy 01/23/2019 Hospital Surgery Encounter Doctor Unassigned, [place] 01/23/2019 Orders Only Sukh Harris MD Assessment 01/23/2019 Telephone Pain Medicine Sukh Harris MD Assessment; Back Pain 01/23/2019 Telephone Pain Medicine Unique Campos, RESOURCE SPECIALIST F/U 01/20/2019 Patient Case Management Outreach Adebayo Parker MD Dysuria (Primary Dx); History of pseudoseizure 01/18/2019 Emergency Emergency Medicine Unknown, Attending Silvana Florian FNP Nurse, [facility] Fl[facility] pain, acute (Primary Dx); Seizure disorder 01/18/2019 Nurse Visit Family Medicine Leticia Handy MD Muraleedharan, Anjali, MD Interstitial cystitis (Primary Dx) 01/16/2019 Office Visit Internal Medicine Sukh Harris MD Spondylosis of lumbar region without myelopathy or radiculopathy (Primary Dx); Chronic lumbar radiculopathy 01/12/2019 Office Visit Pain Medicine Unique Campos, RESOURCE SPECIALIST F/U 01/10/2019 Patient Case Management Outreach Leticia Handy MD Refill Request 01/09/2019 Refill Internal Medicine Maria Del Rosario Saucedo, MICHELLE Allergic reaction, initial encounter (Primary Dx) 01/07/2019 Emergency Emergency Medicine Mark Pacheco MD Refill Request 01/07/2019 Refill Family Medicine Cahs Poon MD Litchfield, Patrica, PT Radiculopathy of thoracolumbar region (Primary Dx); Chronic bilateral low back pain without sciatica; Seizure disorder; Frequent falls 01/05/2019 Ancillary Visit Physical Therapy from Last 3 Months Immunizations Name Administration Dates Next Due Influenza Virus Vaccine 03/21/2017 Influenza Virus Vaccine 04/19/2018 Quad ID [id number] YRS Family History Medical History Relation Name Comments Diabetes Father Hypertension Father Heart Mother Hypertension Mother Relation Name Status Comments Father Mother Social History Date Tobacco Use Types Packs/Day Years Used Never Smoker Smokeless Tobacco: Never Used Tobacco Cessation: Counseling Given: No Drinks/Week oz/Week Comments Alcohol Use No Sex Assigned at Date Recorded Not on file Industry Job Start Date Occupation Not on file Not on file Not on file Travel End Travel History Travel Start No recent travel history available. Last Filed Vital Signs Reading Time Taken Comments Vital Sign 122/76 04/07/2019 1:56 PM CDT Blood Pressure 87 04/07/2019 1:56 PM CDT Pulse 37.2 C (98.9 F) 04/03/2019 10:49 AM CDT Temperature 18 04/07/2019 1:56 PM CDT Respiratory Rate 98% 04/03/2019 10:49 AM CDT RA Oxygen Saturation - - Inhaled Oxygen Concentration 82.6 kg (182 lb 1.6 oz) 04/05/2019 10:51 AM CDT Weight 154.9 cm (5' 1") 04/07/2019 1:56 PM CDT Height 34.41 04/03/2019 10:49 AM CDT Body Mass Index Plan of Treatment Care Team Description Date Type Specialty Gerber Ni MD [address] [facility] [id number] [place], [place] [phone] Nurse, [facility] 04/12/2019 Nurse Visit Obstetrics & Gynecology Nurse, [facility] 04/19/2019 Nurse Visit Obstetrics & Gynecology Nurse, [facility] 04/26/2019 Nurse Visit Obstetrics & Gynecology Mauricio Yip MD [address] [place] [address] [phone] 05/22/2019 Office Visit Cardiology Dieter Zhou MD [address] [place] [address] [id number] [place], [place] [phone] 07/05/2019 Office Visit Pulmonary Disease Marvin Oconnor MD [address] [place] [address] [phone] 07/12/2019 Office Visit Internal Medicine Sukh Harris MD [address] [place] [address] [id number] [place], [place] [phone] 07/13/2019 Office Visit Pain [place] MD [address] [place] [address] [place] [address] [phone] 08/07/2019 Office Visit Internal Medicine Zoila Rodas AGNP [address] [place] [address] [phone] 08/30/2019 Office Visit Nephrology Health Maintenance Due Date Last Done Comments HEPATITIS C (HCV) SCREEN 1955 DTaP,Tdap,and Td Vaccines 02/23/1975 (1 - Tdap) Zoster Recombinant 02/23/2006 Vaccine (SHINGRIX) (1 of 2) INFLUENZA VACCINE (#1) 2019 03/21/2017 Breast Cancer Screening 08/08/2019 08/08/2018 (MAMMOGRAM) PAP SMEAR 08/02/2021 08/02/2018 COLONOSCOPY 08/19/2021 08/19/2016 PNEUMOCOCCAL 0-64 YEARS Aged Out No longer eligible based COMBINED SERIES on patient's age to complete this topic Procedures Comments Procedure Name Priority Date/Time Associated Diagnosis TROPONIN I STAT 03/27/2019 Chest pressure 2:08 PM CDT XR CHEST 1 VW STAT 03/27/2019 Seizure-like activity 11:27 AM CDT CBC WITH DIFFERENTIAL STAT 03/27/2019 Seizure-like activity 11:15 AM CDT PHOSPHORUS STAT 03/27/2019 Seizure-like activity 11:15 AM CDT MAGNESIUM STAT 03/27/2019 Seizure-like activity 11:15 AM CDT CREATINE KINASE STAT 03/27/2019 Seizure-like activity 11:15 AM CDT N-TERMINAL PRO-BNP STAT 03/27/2019 Seizure-like activity 11:15 AM CDT TROPONIN I STAT 03/27/2019 Seizure-like activity 11:15 AM CDT HEPATIC FUNCTION PANEL STAT 03/27/2019 Seizure-like activity (64225) (ALB,T.PRO,BILI 11:15 AM CDT T,BU/BC,ALT,AST,ALK PHOS) BASIC METABOLIC PANEL STAT 03/27/2019 Seizure-like activity (NA, K, CL, CO2, GLUCOSE, 11:15 AM CDT BUN, CREATININE, CA) CBC WITH DIFFERENTIAL Routine 03/27/2019 Seizure-like activity 11:15 AM CDT URINALYSIS STAT 03/27/2019 Seizure-like activity 11:15 AM CDT EKG-12 LEAD STAT 03/27/2019 Chest pressure 10:37 AM CDT EMERGENCY SERVICES Routine 03/27/2019 AGREEMENTS AND 12:01 AM CDT AUTHORIZATIONS POCT URINALYSIS Routine 03/24/2019 Chronic interstitial 3:38 PM CDT cystitis Mixed stress and urge urinary incontinence Recurrent UTI (urinary tract infection) PATIENT QUESTIONNAIRE Routine 03/24/2019 12:01 AM CDT CBC WITH DIFFERENTIAL Routine 03/19/2019 3:56 AM CDT MAGNESIUM Routine 03/19/2019 3:56 AM CDT BASIC METABOLIC PANEL Routine 03/19/2019 (NA, K, CL, CO2, GLUCOSE, 3:56 AM CDT BUN, CREATININE, CA) CBC WITH DIFFERENTIAL Routine 03/19/2019 3:56 AM CDT URINE CULTURE Routine 03/18/2019 3:12 PM CDT GALV/CLC ONLY - URINE STAT 03/18/2019 Seizure DRUG (IMMUNOASSAY) - 4 ER 10:45 AM CDT PANEL URINALYSIS STAT 03/18/2019 Seizure 10:45 AM CDT EKG-12 LEAD Routine 03/18/2019 10:[address] HEAD WO CONTRAST STAT 03/18/2019 Seizure 10:24 AM CDT XR CHEST 1 VW STAT 03/18/2019 Seizure 10:24 AM CDT EXTRA TUBE URINE CULTURE Routine 03/18/2019 10:13 AM CDT EXTRA TUBE DK. GREEN STAT 03/18/2019 10:13 AM CDT CBC WITH DIFFERENTIAL STAT 03/18/2019 Seizure 10:13 AM CDT ETHANOL STAT 03/18/2019 Seizure 10:13 AM CDT N-TERMINAL PRO-BNP STAT 03/18/2019 Seizure 10:13 AM CDT PROTHROMBIN TIME / INR STAT 03/18/2019 Seizure 10:13 AM CDT ACTIVATED PARTIAL STAT 03/18/2019 Seizure THRMPLAS ULI 10:13 AM CDT TROPONIN I STAT 03/18/2019 Seizure 10:13 AM CDT HEPATIC FUNCTION PANEL STAT 03/18/2019 Seizure ([id number]) (ALB,T.PRO,BILI 10:13 AM CDT T,BU/BC,ALT,AST,ALK PHOS) BASIC METABOLIC PANEL STAT 03/18/2019 Seizure (NA, K, CL, CO2, GLUCOSE, 10:13 AM CDT BUN, CREATININE, CA) CBC WITH DIFFERENTIAL Routine 03/18/2019 Seizure 10:13 AM CDT EKG-12 LEAD STAT 03/18/2019 10:01 AM CDT HOSPITAL ADMISSION Routine 03/18/2019 12:01 AM CDT HOSPITAL ADMISSION Routine 03/18/2019 12:01 AM CDT URINE CULTURE Routine 03/13/2019 Mixed incontinence urge 1:04 PM CDT and stress URINALYSIS Routine 03/13/2019 Mixed incontinence urge 12:01 PM CDT and stress POCT URINALYSIS Routine 03/13/2019 Bladder pain REFERRAL- Routine 03/07/2019 REQUEST/RESPONSE 12:01 AM CDT PROTEIN CREAT RATIO URINE Routine 03/01/2019 Hypertension, unspecified RANDOM 4:34 PM CDT type URINALYSIS Routine 03/01/2019 Hypertension, unspecified 4:34 PM CDT type MAGNESIUM Routine 03/01/2019 Hypertension, unspecified 3:36 PM CDT type PHOSPHORUS Routine 03/01/2019 Hypertension, unspecified 3:36 PM CDT type BASIC METABOLIC PANEL Routine 03/01/2019 Hypertension, unspecified (NA, K, CL, CO2, GLUCOSE, 3:36 PM CDT type BUN, CREATININE, CA) PROFILE / HEMOGRAM Routine 03/01/2019 Hypertension, unspecified 3:36 PM CDT type [facility] PATIENT FINANCIAL Routine 03/01/2019 POLICY 1:05 PM CDT NO SHOW OR MISSED Routine 03/01/2019 APPOINTMENT POLICY 1:04 PM CDT ACKNOWLEDGEMENT FL TIME OR Routine 02/15/2019 Spondylosis of lumbar (NON-REPORTABLE) 1:50 PM CDT region without myelopathy or radiculopathy RADIOFREQUENCY Level 5 02/15/2019 Spondylosis of lumbar THERMOCOAGULATION (greater 12:52 PM CDT region without myelopathy than 5 or radiculopathy days) Special Needs . Radiofrequ ency of the Medial Branchof L2, L3, L4, and L5 CONSENT/REFUSAL FOR Routine 02/15/2019 DIAGNOSIS AND TREATMENT 10:55 AM CDT ASSIGNMENT OF BENEFITS Routine 02/15/2019 10:54 AM CDT DAY SURGERY - VICTORY Routine 02/15/2019 [place] 12:01 AM CDT PULMONARY FUNCTION TEST Routine 02/10/2019 (RESULTS) 11:[address] LOW DOSE LUNG NODULE Routine 02/04/2019 Lung nodule 9:54 AM CDT DME/SUPPLY JUSTIFICATION Routine 02/02/2019 12:01 AM CDT DME/SUPPLY JUSTIFICATION Routine 02/02/2019 12:01 AM CDT POCT URINALYSIS Routine 01/31/2019 3:11 PM CDT PATIENT QUESTIONNAIRE Routine 01/31/2019 12:01 AM CDT FL TIME OR Routine 01/23/2019 Spondylosis of lumbar (NON-REPORTABLE) 9:36 AM CDT region without myelopathy or radiculopathy Chronic lumbar radiculopathy MEDIAL BRANCH BLOCK Level 5 01/23/2019 Spondylosis of lumbar (greater 9:08 AM CDT region without myelopathy than 5 or radiculopathy days) Chronic lumbar radiculopathy Special Needs Medial branch block Right side Levels L2-L3, L3-L4,L4-L 5 CONSENT/REFUSAL FOR Routine 01/23/2019 DIAGNOSIS AND TREATMENT 6:56 AM CDT ASSIGNMENT OF BENEFITS Routine 01/23/2019 6:55 AM CDT DAY SURGERY - VICTORY Routine 01/23/2019 [place] 12:01 AM CDT XR KUB STAT 01/18/2019 Dysuria 6:04 PM CDT CBC WITH DIFFERENTIAL STAT 01/18/2019 Dysuria 5:30 PM CDT LIPASE STAT 01/18/2019 Dysuria 5:30 PM CDT HEPATIC FUNCTION PANEL STAT 01/18/2019 Dysuria ([id number]) (ALB,T.PRO,BILI 5:30 PM CDT T,BU/BC,ALT,AST,ALK PHOS) BASIC METABOLIC PANEL STAT 01/18/2019 Dysuria (NA, K, CL, CO2, GLUCOSE, 5:30 PM CDT BUN, CREATININE, CA) CBC WITH DIFF Routine 01/18/2019 Dysuria 5:30 PM CDT URINALYSIS STAT 01/18/2019 Dysuria 5:30 PM CDT EMERGENCY SERVICES Routine 01/18/2019 AGREEMENTS AND 12:01 AM CDT AUTHORIZATIONS URINALYSIS STAT 01/07/2019 Allergic reaction, 5:57 PM CDT initial encounter XR CHEST 1 VW STAT 01/07/2019 Allergic reaction, 5:41 PM CDT initial encounter EXTRA TUBE LT. BLUE STAT 01/07/2019 5:05 PM CDT CBC WITH DIFFERENTIAL STAT 01/07/2019 Allergic reaction, 5:05 PM CDT initial encounter TROPONIN I STAT 01/07/2019 Allergic reaction, 5:05 PM CDT initial encounter BASIC METABOLIC PANEL STAT 01/07/2019 Allergic reaction, (NA, K, CL, CO2, GLUCOSE, 5:05 PM CDT initial encounter BUN, CREATININE, CA) CBC WITH DIFF Routine 01/07/2019 Allergic reaction, 5:05 PM CDT initial encounter EKG-12 LEAD STAT 01/07/2019 4:55 PM CDT EKG-12 LEAD Routine 01/07/2019 4:45 PM CDT EMERGENCY SERVICES Routine 01/07/2019 AGREEMENTS AND 12:01 AM CDT AUTHORIZATIONS from Last 3 Months Results * TROPONIN I (03/27/2019 2:08 PM CDT) Only the most recent of 4 results within the time period is included. TROPONIN I 0.002 <=0.034 ng/mL [facility] Specimen Blood - ARM, LEFT Narrative Performed At Equal or Less than 0.034 ng/ml---Normal [facility] Note: Cardiac troponin begins to rise 3-4 hours after the onset of ischemia. [facility] Repeat in 4-6 hours if the sample was drawn within 3-4 hours of the onset of the SANBORN symptom and found normal. Between 0.035 and 0.120 ng/mL--- Borderline. Questionable myocardial injury or necrosis Note: Serial measurement may be necessary to confirm or exclude the diagnosis of myocardial injury or necrosis; Clinical correlation (symptoms, EKGs, imaging studies, and others) required; Repeat in 4-6 hours if clinically indicated. Equal or Higher than 0.121 ng/mL---Abnormal. Myocardial Injury or Necrosis Likely Biotin has been reported to cause a negative bias, interpret results relative to patient's use of biotin. Performing Organization Address City/State/Zipcode Phone Number [facility] CLIA: [id number], [address] [place] [address] [facility] * XR CHEST 1 VW (03/27/2019 11:27 AM CDT) Only the most recent of 3 results within the time period is included. Specimen Impressions Performed At Mild pulmonary vascular congestion. PACS/VR/DOSE I, Yeimi Red MD., have reviewed this study and agree with the above report. Narrative Performed At * * * * * * * * ORIGINAL REPORT * * * * * * * * PACS/VR/DOSE EXAM: XR CHEST 1 VW HISTORY: cough TECHNIQUE: AP view of the chest COMPARISON: 03/18/2019 FINDINGS: The study is slightly underpenetrated. Prominence of the pulmonary vasculature is likely due to mild congestion. The lungs are otherwise clear without focal consolidation. No pleural effusion or pneumothorax is identified. The heart measures on the upper limit of normal. No acute bony abnormality. Procedure Note Rust, Radiant Results Inft User - 03/27/2019 5:52 PM CDT * * * * * * * * ORIGINAL REPORT * * * * * * * * EXAM: XR CHEST 1 VW HISTORY: cough TECHNIQUE: AP view of the chest COMPARISON: 03/18/2019 FINDINGS: The study is slightly underpenetrated. Prominence of the pulmonary vasculature is likely due to mild congestion. The lungs are otherwise clear without focal consolidation. No pleural effusion or pneumothorax is identified. The heart measures on the upper limit of normal. No acute bony abnormality. IMPRESSION Mild pulmonary vascular congestion. IYeimi MD., have reviewed this study and agree with the above report. Performing Organization Address City/State/Zipcode Phone Number PACS/VR/DOSE * CBC WITH DIFFERENTIAL (03/27/2019 11:15 AM CDT) Only the most recent of 5 results within the time period is included. WBC 5.81 4.30 - 11.10 [facility] 10*3/L [facility] RBC 4.78 3.93 - 5.25 10*6/L [facility] HGB 13.5 11.6 - 15.0 g/dL [facility] HCT 41.0 35.7 - 45.2 % [facility] MCV 85.8 80.6 - 95.[address] [facility] MCH 28.2 25.9 - 32.[address] [facility] MCHC 32.9 31.6 - 35.1 g/dL [facility] RDW-SD 40.7 39.0 - 49.9 fL [facility] RDW-CV 13.1 12.0 - 15.5 % [facility] PLT 190 166 - 358 10*3/L [facility] MPV 10.8 9.5 - 12.[address] [facility] NRBC/100 WBC 0.0 0.0 - 10.0 /[address] [facility] NRBC x10^3 <0.01 10*3/L [facility] GRAN MAT (NEUT) 59.5 % [facility] % [facility] IMM GRAN % 0.20 % [facility] LYMPH % 30.5 % [facility] MONO % 9.3 % [facility] EOS % 0.0 % [facility] BASO % 0.5 % [facility] GRAN MAT 3.46 1.88 - 7.09 10*3/uL [facility] x10^3(ANC) [facility] IMM GRAN x10^3 <0.03 0.00 - 0.06 10*3/uL [facility] LYMPH x10^3 1.77 1.32 - 3.29 10*3/uL [facility] MONO x10^3 0.54 0.33 - 0.92 10*3/uL [facility] EOS x10^3 <0.03 (L) 0.03 - 0.39 10*3/uL [facility] BASO x10^3 0.03 0.01 - 0.07 10*3/uL [facility] Specimen Blood - ARM, LEFT Performing Organization Address City/State/Zipcode Phone Number [facility] CLIA: [id number], [facility] [place], [place] [id number] [facility] * N-TERMINAL PRO-BNP (03/27/2019 11:15 AM CDT) Only the most recent of 2 results within the time period is included. NT-proBNP 57 <=125 pg/mL [facility] [facility] Specimen Blood - ARM, LEFT Narrative Performed At Biotin has been reported to cause a negative bias, interpret results relative to [facility] patient's use of biotin. [facility] Performing Organization Address City/State/Zipcode Phone Number [facility] CLIA: [id number], [facility] [place] [address] [facility] * Urinalysis (03/27/2019 11:15 AM CDT) Only the most recent of 6 results within the time period is included. APPEARANCE Hazy (A) Clear [facility] COLOR Yellow Yellow [facility] PH 5.0 4.8 - 8.0 [facility] SP GRAVITY 1.016 1.003 - 1.030 [facility] GLU U QUAL Normal Normal [facility] BLOOD Negative Negative [facility] KETONES Negative Negative [facility] PROTEIN Negative Negative [facility] UROBILIN Normal Normal [facility] BILIRUBIN Negative Negative [facility] NITRITE Negative Negative [facility] LEUK MICHAEL 75/uL (A) Negative [facility] RBC/HPF 1 0 - 3 HPF [facility] WBC/HPF 5 0 - 5 HPF [facility] BACTERIA Negative Negative [facility] SQ EPITH 5 (H) <=2 HPF [facility] Specimen Urine - URINE, CLEAN CATCH Performing Organization Address City/[facility]/Zipcode Phone Number [facility] CLIA: [id number], [address] [place] [address] [facility] * Basic Metabolic Panel (NA, K, CL, CO2, GLUCOSE, BUN, CREATININE, CA) (03/27/2019 11:15 AM CDT) Only the most recent of 6 results within the time period is included. NA 142 135 - 145 mmol/L [facility] K 3.6 3.5 - 5.0 mmol/L [facility] CL 102 98 - 108 mmol/L [facility] CO2 TOTAL 30 23 - 31 mmol/L [facility] AGAP 10 2 - 16 [facility] BUN 20 7 - 23 mg/dL [facility] GLUCOSE 104 70 - 110 mg/dL [facility] CREATININE 0.74 0.50 - 1.04 mg/dL [facility] CALCIUM 9.9 8.6 - 10.6 mg/dL [facility] SERVICES-[facility] eGFR 79.3 mL/min/1.73m2 [facility] Calculation [facility] eGFR 96.1 mL/min/1.73m2 [facility] Calculation [facility] ([facility]) Specimen Blood - ARM, LEFT Narrative Performed At Association of Glomerular Filtration Rate (GFR) and Staging of Kidney Disease* [facility] + + + + [facility] | GFR (mL/min/1.73 m2) | With Kidney Damage | Without Kidney Damage CAMPUS + + + + | >90 | Stage one | Normal + + + + | 60-89 | Stage two | Decreased GFR + + + + | 30-59 | Stage three | Stage three + + + + | 15-29 | Stage four | Stage four + + + + | <15 (or dialysis) | Stage five | Stage five + + + + *Each stage assumes the associated GFR level has been in effect for at least three months. Stages 1 to 5, with or without kidney [...] tests). Performing Organization Address City/State/Zipcode Phone Number [facility] CLIA: [id number], [address] [place] [address] [facility] * Hepatic Function Panel (ALB, T.PRO, BILI T, BU/BC, ALT, AST, ALK PHOS) (03/27/2019 11:15 AM CDT) Only the most recent of 3 results within the time period is included. TOTAL BILI 0.3 0.1 - 1.1 mg/dL [facility] BILI UNCON 0.2 0.1 - 1.1 mg/dL [facility] BILI CONJ 0.0 0.0 - 0.3 mg/dL [facility] T PROTEIN 7.2 6.3 - 8.2 g/dL [facility] ALBUMIN 4.4 3.5 - 5.0 g/dL [facility] ALK PHOS 71 34 - 122 U/L [facility] ALT(SGPT) 37 9 - 51 U/L [facility] AST(SGOT) 25 13 - 40 U/L [facility] Specimen Blood - ARM, LEFT Performing Organization Address City/[facility] Phone Number [facility] CLIA: [id number], [address] [place] [address] [facility] * MAGNESIUM (03/27/2019 11:15 AM CDT) Only the most recent of 3 results within the time period is included. MAGNESIUM 1.9 1.7 - 2.4 mg/dL [facility] Specimen Blood - ARM, LEFT Performing Organization Address [facility] Centercode Phone Number [facility] CLIA: [id number], [address] [place] [address] [facility] * CREATINE KINASE (03/27/2019 11:15 AM CDT) CK 84 33 - 194 U/L [facility] Specimen Blood - ARM, LEFT Performing Organization Address [facility] Phone Number [facility] CLIA: [id number], [address] [place] [address] [facility] * PHOSPHORUS (03/27/2019 11:15 AM CDT) Only the most recent of 2 results within the time period is included. PHOSPHORUS 4.0 2.5 - 5.0 mg/dL [facility] Specimen Blood - ARM, LEFT Performing Organization Address [facility]/Zipcode Phone Number [facility] CLIA: [id number], [address] [place] [address] [facility] * EKG-12 LEAD ROUTINE (03/27/2019 10:37 AM CDT) Narrative Performed At Agata Erazo FNP 03/27/2019 3:04 PM EKG-12 LEAD ROUTINE Date/Time: 03/27/2019 12:26 PM Performed by: Agata Earzo FNP Authorized by: Agata Erazo FNP ECG reviewed by ED Physician in the absence of a cost reduction engineer: yes Previous ECG: Previous ECG: Compared to current Comparison ECG info: 11/2018 Similarity: No change Interpretation: Interpretation: non-specific Rate: ECG rate: 72 ECG rate assessment: normal Rhythm: Rhythm: sinus rhythm Ectopy: Ectopy: none QRS: QRS axis: Normal QRS intervals: Normal Conduction: Conduction: normal ST segments: ST segments: Normal T waves: T waves: normal Comments: Incomplete RBBB seen on old EKG as well. * EMERGENCY SERVICES AGREEMENTS AND AUTHORIZATIONS (03/27/2019 12:01 AM CDT) Only the most recent of 3 results within the time period is included. Specimen Performing Organization Address City/[facility] Phone Number [facility] * POCT URINALYSIS W SPECIFIC GRAVITY (03/24/2019 3:38 PM CDT) Only the most recent of 3 results within the time period is included. POCT U SP GRAV 1.025 1.005 - 1.025 mg/dl POCT PH U 5 5 - 8 mg/dl POCT U LEUK EST neg Negative - Negative POCT U NIT neg Negative - Negative POCT U PROT neg Negative - Negative POCT U GLU normal Negative - Negative POCT U KETONE neg Negative - Negative POCT U UROBILI normal 0.2 - 1 mg/dl POCT U BILI neg Negative - Negative POCT U BLD neg Negative - Negative POCT U COLOR belinda POCT U APPEAR cloudy Specimen Urine - URINE, CLEAN CATCH * PATIENT QUESTIONNAIRE (03/24/2019 12:01 AM CDT) Only the most recent of 2 results within the time period is included. Specimen Performing Organization Address City/[facility] Phone Number [facility] * URINE CULTURE (03/18/2019 3:12 PM CDT) Only the most recent of 2 results within the time period is included. URINE CULTURE >100,000 CFU/mL Escherichia [facility] coli SERVICES Specimen Urine - URINE, CLEAN CATCH Antibiotic Method Susceptibility Organism Amoxacillin/Clavulanic acid SUSCEPTIBILITY TESTING 4: Susceptible Escherichia coli Ampicillin SUSCEPTIBILITY TESTING >=32: Resistant Escherichia coli Ampicillin/Sulbactam SUSCEPTIBILITY TESTING 8: Susceptible Escherichia coli Cefazolin SUSCEPTIBILITY TESTING <=4: Susceptible Escherichia coli Ceftriaxone SUSCEPTIBILITY TESTING <=1: Susceptible Escherichia coli Ertapenem SUSCEPTIBILITY TESTING <=0.5: Susceptible Escherichia coli Gentamicin SUSCEPTIBILITY TESTING <=1: Susceptible Escherichia coli Levofloxacin SUSCEPTIBILITY TESTING <=0.12: Susceptible Escherichia coli Nitrofurantoin SUSCEPTIBILITY TESTING <=16: Susceptible Escherichia coli Piperacillin/Tazobactam SUSCEPTIBILITY TESTING <=4: Susceptible Escherichia coli Trimethoprim/Sulfamethoxazole SUSCEPTIBILITY TESTING >=320: Resistant Escherichia coli Comment: Nitrofurantoin is not recommended for use in treating pyelonephritis or systemic disease. Performing Organization Address City/State/Zipcode Phone Number [facility] CLIA: [id number], [address] [place] [address] [facility] * Drug Screen ER (03/18/2019 10:45 AM CDT) AMPHET Negative Negative [facility] Cocaine Negative Negative [facility] Metabolite SERVICES-[facility] OPIATES Negative Negative [facility] THC Negative Negative [facility] Specimen Urine - URINE, CLEAN CATCH Narrative Performed At Urine Drug Cutoff Ranges [facility] Amphetamine: 1,000 ng/mL [facility] Cocaine: 150 ng/mL [facility] Opiates: 300 ng/mL Cannabinoids: 50 ng/mL The results are to be used only for medical (i.e., treatment) purposes. Unconfirmed screening results must not be used for non-medical purposes (e.g., employment testing, legal testing). Performing Organization Address City/State/Zipcode Phone Number [facility] CLIA: [id number], [address] [place] [address] [facility] * EKG-12 LEAD (03/18/2019 10:42 AM CDT) Specimen Performing Organization Address City/[facility]/Zipcode Phone Number [facility] * CT HEAD WO CONTRAST (03/18/2019 10:24 AM CDT) Specimen Impressions Performed At Impression: PACS/VR/DOSE No acute intracranial abnormality I, Charmaine Self MD., have reviewed this study and agree with the above report. Narrative Performed At * * * * * * * * ORIGINAL REPORT * * * * * * * * PACS/VR/DOSE Exam: CT HEAD WO CONTRAST Clinical History: Seizure, new, abn neuro exam, nontraumatic Altered mental status (AMS), non-specific Dizziness, persistent/recurrent, cardiac or vascular cause suspected Technique:CT of head was obtained without intravenous contrast. Sagittal and coronal reformats were generated. Comparison: MRI head without contrast dated 12/20/2018 Findings: The ventricles and the cerebral sulci are normal in caliber and configuration. No hydrocephalus or pathological extra-axial collection noted. Basal cisterns are unremarkable. No intraparenchymal hemorrhage is noted. The galindo-white matter differentiation is maintained. No midline shift or brain herniation noted. Right sphenoid sinus retention cyst. Bilateral mastoid air cells and paranasal sinuses are otherwise clear. The calvarium and the skull base are intact. Procedure Note Rust, Radiant Results Inft User - 03/18/2019 10:35 AM CDT * * * * * * * * ORIGINAL REPORT * * * * * * * * Exam: CT HEAD WO CONTRAST Clinical History: Seizure, new, abn neuro exam, nontraumatic Altered mental status (AMS), non-specific Dizziness, persistent/recurrent, cardiac or vascular cause suspected Technique:CT of head was obtained without intravenous contrast. Sagittal and coronal reformats were generated. Comparison: MRI head without contrast dated 12/20/2018 Findings: The ventricles and the cerebral sulci are normal in caliber and configuration. No hydrocephalus or pathological extra-axial collection noted. Basal cisterns are unremarkable. No intraparenchymal hemorrhage is noted. The galindo-white matter differentiation is maintained. No midline shift or brain herniation noted. Right sphenoid sinus retention cyst. Bilateral mastoid air cells and paranasal sinuses are otherwise clear. The calvarium and the skull base are intact. IMPRESSION Impression: No acute intracranial abnormality I, Charmaine Self MD., have reviewed this study and agree with the above report. Performing Organization Address City/State/Zipcode Phone Number PACS/VR/DOSE * EXTRA TUBE CARLI. REGGIE (03/18/2019 10:13 AM CDT) Specimen Blood Performing Organization Address City/State/Zipcode Phone Number [facility] CLIA: [id number], [address] [place] [address] [facility] * EXTRA TUBE URINE CULTURE (03/18/2019 10:13 AM CDT) Specimen Urine - URINE, CLEAN CATCH Performing Organization Address [facility] Phone Number [facility] CLIA: [id number], [address] [place] [address] [facility] * aPTT (03/18/2019 10:13 AM CDT) APTT Patient 32 26 - 36 Seconds [facility] Specimen Blood - VENOUS Performing Organization Address [facility] Centercode Phone Number [facility] CLIA: [id number], [address] [place] [address] [facility] * Prothrombin Time (PT) / INR (03/18/2019 10:13 AM CDT) PROTIME PATIENT 11.4 10.1 - 12.6 Seconds [facility] INR 1.0Comment: Normal INR <1.1; [facility] Warfarin Therapeutic range 2.0 [facility] to 3.0 or 2.5 to 3.5, [facility] depending upon the indications. Specimen Blood - VENOUS Performing Organization Address [facility] Centercode Phone Number [facility] CLIA: [id number], [address] [place] [address] [facility] * Ethanol Level (03/18/2019 10:13 AM CDT) ALCOHOL <10 mg/dL [facility] Specimen Blood - VENOUS Narrative Performed At Toxic Greater than or equal to 80 mg/dL. [facility] NOTE: Whole blood values are approximately 10% to 15% lower than serum and [facility] plasma. CAMPUS Performing Organization Address [facility]/Zipcode Phone Number [facility] CLIA: [id number], [address] [place] [address] [facility] * HOSPITAL ADMISSION (03/18/2019 12:01 AM CDT) Only the most recent of 2 results within the time period is included. Specimen Performing Organization Address City/State/Zipcode Phone Number HIM * REFERRAL- REQUEST/RESPONSE (03/07/2019 12:01 AM CDT) Specimen Performing Organization Address City/State/Zipcode Phone Number [facility] * PROTEIN CREAT RATIO URINE RANDOM (03/01/2019 4:34 PM CDT) T. PROT U 7 mg/dL [facility] CREAT U 102.0 mg/dL [facility] Protein/Creatin 0.1 0.0 - 2.0 [facility] ine Ratio Urine [facility] Specimen Urine - URINE, CLEAN CATCH Performing Organization Address City/State/Zipcode Phone Number [facility] CLIA: [id number], [address] [place] [address] [facility] * CBC W/NO DIFF (03/01/2019 3:36 PM CDT) WBC 6.21 4.30 - 11.10 [facility] 10*3/L [facility] RBC 5.05 3.93 - 5.25 10*6/L [facility] HGB 14.2 11.6 - 15.0 g/dL [facility] HCT 44.0 35.7 - 45.2 % [facility] MCH 28.1 25.9 - 32.8 pg [facility] MCV 87.1 80.6 - 95.5 fL [facility] MCHC 32.3 31.6 - 35.1 g/dL [facility] PLT 207 166 - 358 10*3/L [facility] MPV 10.5 9.5 - 12.9 fL [facility] RDW-CV 13.9 12.0 - 15.5 % [facility] RDW-SD 44.2 39.0 - 49.9 fL [facility] NRBC x10^3 <0.01 10*3/L [facility] NRBC/100 WBC 0.0 0.0 - 10.0 /100 WBCs [facility] IPF % 3.8Comment: Platelet count 1.3 - 7.7 % [facility] measured by fluorescence [facility] method. [facility] Specimen Blood Performing Organization Address [facility]/State/[facility] Centercode Phone Number [facility] CLIA: [id number], [address] [place] [address] [facility] * [facility] PATIENT FINANCIAL POLICY (03/01/2019 1:05 PM CDT) Specimen Performing Organization Address [facility]/State/Zipcode Phone Number [facility] * NO SHOW OR MISSED APPOINTMENT POLICY ACKNOWLEDGEMENT (03/01/2019 1:04 PM CDT) Specimen Performing Organization Address [facility]/State/Zipcode Phone Number [facility] * [place] TIME OR (NON-REPORTABLE) (02/15/2019 1:50 PM CDT) Only the most recent of 2 results within the time period is included. Specimen Narrative Performed At These images do not require a Radiology diagnostic report. PACS Performing Organization Address [facility]/State/[facility] Centercode Phone Number PACS * CONSENT/REFUSAL FOR DIAGNOSIS AND TREATMENT (02/15/2019 10:55 AM CDT) Only the most recent of 2 results within the time period is included. Specimen Performing Organization Address [facility]/State/Zipcode Phone Number [facility] * ASSIGNMENT OF BENEFITS (02/15/2019 10:54 AM CDT) Only the most recent of 2 results within the time period is included. Specimen Performing Organization Address [facility]/State/Zipcode Phone Number [facility] * DAY SURGERY - [facility] (02/15/2019 12:01 AM CDT) Specimen Performing Organization Address [facility]/State/Zipcode Phone Number [facility] * PULMONARY FUNCTION TEST (RESULTS) (02/10/2019 11:14 AM CDT) Specimen Performing Organization Address [facility]/State/Zipcode Phone Number PFT * CT LOW DOSE LUNG NODULE (02/04/2019 9:54 AM CDT) Specimen Impressions Performed At 1. Scattered bilateral pulmonary nodules measuring up [...] article (Adapted from the Fleischner Society 2017). http://pubs.rsna.org/doi/full/10.1148/radiol.7628969122 Narrative Performed At PROCEDURE: CT CHEST NON [...] article (Adapted from the Fleischner Society 2017). http://pubs.rsna.org/doi/full/10.1148/radiol.4743678110 Performing Organization Address City/State/Zipcode Phone Number PACS/VR/DOSE * DME/SUPPLY JUSTIFICATION (02/02/2019 12:01 AM CDT) Only the most recent of 2 results within the time period is included. Specimen Performing Organization Address City/State/Zipcode Phone Number HIM * [facility] (01/23/2019 12:01 AM CDT) Specimen Performing Organization Address City/State/Zipcode Phone Number [facility] * XR KUB (01/18/2019 6:04 PM CDT) [...] Organization Address City/State/Zipcode Phone Number PACS/VR/DOSE * Lipase Serum (01/18/2019 5:30 PM CDT) LIPASE 146 0 - 220 U/L [facility] SERVICES-[facility] Specimen Blood - VENOUS Performing Organization Address City/State/Zipcode Phone Number [facility] CLIA: [id number], [address] [place] [address] SERVICES-[facility] * EXTRA TUBE LT. BLUE (01/07/2019 5:05 PM CDT) Specimen Blood Performing Organization Address City/State/Zipcode Phone Number [facility] CLIA: [id number], [address] [place] [address] [facility] * EKG-12 LEAD (01/07/2019 4:45 PM CDT) Specimen Performing Organization Address City/State/Zipcode Phone Number HST from Last 3 Months Insurance Type Payer Benefit Subscriber ID Effective Phone Address Plan / Dates Group HMO [facility] [id number] 2019-P [phone] [address] [facility] [address] [place] [address]
--- OUTSIDE RECORDS SUMMARY | 2019-06-09 13:29 | XMS REPORT | Summary of Care ---
Author Author [facility] - Health Organization [facility] - Health Address Unknown Phone Unavailable Care Team Providers Care [employer] Operations Manager Name Role Phone Fabien Fernandes MD Unavailable Leena Bañuelosynpatricia MURILLO PCP Reason for Visit * Reason Comments Assessment Prescription Allergic reaction Encounter Details Care Team Description Date Type Department Zoila Rodas AGNP [address] [place] [id number] Assessment; Prescription; Allergic reaction 03/08/2019 [facility]phone [facility] [address] [place] [phone] Allergies Comments Active Allergy Reactions Severity Noted Date Azithromycin Itching 01/07/2019 Ciprofloxacin Rash 01/27/2018 Clindamycin Other - See Medium 10/05/2016 comments, Itching Clonazepam Itching, Medium 11/23/2017 Rash, Swelling All steroids-muscle weakness t Corticosteroids Rash 01/20/2016 (Glucocorticoids) Iodine Rash 10/05/2016 Lincomycin Rash Medium 09/15/2017 Nitrofurantoin Rash 01/27/2018 steroid Other [place]-3s Anaphylaxis 01/27/2018 States it would be fatal Penicillins Other - See High 01/20/2016 comments, Shortness of Breath Sulfa (Sulfonamide Other - See 01/20/2016 Antibiotics) comments, Swelling New string of tetanus- went to ER , medication for throat closing up Tetanus Vaccines And Swelling High 01/20/2016 Toxoid documented as of this encounter (statuses as of 03/09/2019) Medications End Date Status Medication Sig Dispensed [...] MOUTH 9 Essential hypertension EVERY DAY Active GABAPENTIN 400 mg TAKE 1 90 capsule 2 capsuleIndications: CAPSULE BY 9 Radiculopathy of MOUTH THREE thoracolumbar region TIMES A DAY Status Hospital, Clinic, or Ordered Dose Route Frequency Start End Date Other Facility Date Administered Medication Active lactated ringers IV 1000 mL IV Infusion CONTINUOUS 08/22/20 infusion 1,000 mL 19 documented as of this encounter (statuses as of 03/09/2019) Active Problems Problem Noted Date Chronic lumbar radiculopathy 01/12/2019 Overview: Added automatically from request for surgery [id number] 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/12/2019 Overview: Added automatically from request for surgery [id number] Obesity (BMI 30-39.9) 12/16/2018 Recurrent UTI 05/17/2018 [...] as of this encounter (statuses as of 03/09/2019) Resolved Problems Problem Noted Date Resolved Date 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/12/2019 01/16/2019 Overview: Added automatically from request for surgery [id number] documented as of this encounter (statuses as of 03/09/2019) Immunizations Name Administration Dates Next Due Influenza [...] Castro MD [address] [place] [address] [place] [phone] 04/26/2019 Office Visit Cardiology Dieter Zhou MD [id number] [place] [address] [phone] 07/05/2019 Office Visit Pulmonary Disease Sukh Harris MD [address] [facility] [id number] [place], [place] [id number] 07/13/2019 Office Visit Pain Medicine Zoila Rodas AGNP [address] [place] [phone] 08/30/2019 Office Visit Nephrology Health Maintenance Due [...] Phone Address Plan / Dates Group HMO [facility] [id number] 2019-P [phone] [address] [facility] [id number] [place] [address] documented as of this encounter
--- OUTSIDE RECORDS SUMMARY | 2019-06-09 13:30 | XMS REPORT | Clinical Summary ---
Author Author [facility] - Health Organization [facility] - Health Address Unknown Phone Unavailable Care Team Providers Care Clipper Machine Name Role Phone Fabien Fernandes MD Unavailable [...] Rash Medium 09/15/2017 Nitrofurantoin Rash 01/27/2018 Other [place]-3s Anaphylaxis 01/27/2018 States it would be fatal [...] bedtime. Active triamcinolone 55 mcg Use 1 Roberts 1 Bottle 1 nasal inhalerIndications: in each [...] Overview: Added automatically from request for surgery [id number] 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/12/2019 Overview: Added automatically from request for surgery [id number] Obesity (BMI 30-39.9) 12/16/2018 Recurrent UTI 05/17/2018 [...] Overview: Added automatically from request for surgery [id number] Encounters Care Team Description Date Type Specialty Leticia Handy MD Refill Request 04/06/2019 Refill Internal Medicine Gerber Ni MD Nurse, [facility] Chronic interstitial cystitis (Primary Dx) 04/05/2019 Nurse Visit Obstetrics & Gynecology Marvin Oconnor MD Viral URI with cough (Primary Dx); Nasal sinus congestion; Encounter for HCV screening test for low risk patient 04/03/2019 Office Visit Internal Medicine Jessie De Leon MD 03/31/2019 Office Visit Allergy & Immunology: Internal Medicine Gerber Ni MD Nurse, [facility] Chronic interstitial cystitis (Primary Dx) 03/29/2019 [...] Office Visit Obstetrics & Gynecology Doctor Unassigned, [place] 03/24/2019 Orders Only Charlotte Mijares RN Transition Of Care 03/22/2019 Transition of Case Management Care Giuliano Edwards, Maggie Mukherjee MD Seizure 03/18/2019 Emergency Medicine - Inpatient only - 03/21/2019 Leena Bañuelos DO Medical Records 03/15/2019 Telephone Internal HolualoaMarvin Oconnor MD Lab Results 03/15/2019 Telephone Internal HolualoaMarvin Oconnor MD Mixed incontinence urge and stress (Primary Dx); Bladder pain 03/13/2019 Office Visit Internal Medicine Zoila Rodas AGNP Notification 03/09/2019 Telephone Nephrology Zoila Rodas AGNP Assessment; Prescription; Allergic reaction 03/08/2019 Telephone Nephrology Sukh Harris MD Refill Request 03/06/2019 Refill Pain Medicine Leticia Handy MD Refill Request 03/05/2019 Refill Internal Medicine Zoila Rodas AGNP Vtc-Lab Hypertension, unspecified type 03/01/2019 [facility] Phle[facility] Visit Zoila Rodas AGNP Hypertension, unspecified type (Primary Dx) 03/01/2019 Office Visit Nephrology Doctor Unassigned, [place] 03/01/2019 Orders Only Lidya Patel MD Refill [...] radiculopathy 02/15/2019 Hospital Surgery Encounter Doctor Unassigned, [place] 02/15/2019 Orders Only Isak Butt MD Forms 02/15/2019 Telephone Internal Medicine Dieter Zhou MD Test, [facility] Pulmonary Function Dyspnea on exertion 02/10/2019 [place] Pulmonary Function Visit Technologist Dieter Zhou MD 02/10/2019 Orders Only Pulmonary Disease Sukh Harris MD Spondylosis of lumbar region without myelopathy or radiculopathy (Primary Dx) 02/09/2019 Office Visit Pain Medicine Leena Bañuelos DO Forms (wheelchair) 02/06/2019 Telephone Internal Medicine Dieter Zhou MD 02/04/2019 [facility] Radiology Encounter Doctor Unassigned, [place] 02/02/2019 Orders Only Dieter Zhou MD Lung nodule (Primary Dx); Dyspnea on exertion; Chest pain, unspecified type 02/01/2019 Office Visit Pulmonary Disease Mark Pacheco MD Refill Request 02/01/2019 Refill Family Medicine Gerber Ni MD Mixed urge and stress incontinence (Primary Dx); Chronic interstitial cystitis 01/31/2019 Office Visit Obstetrics & Gynecology Doctor Unassigned, [place] 01/31/2019 Orders Only Jamison Bañuelos MD Forms 01/31/2019 Telephone Internal Medicine Alex Sofia MD Assessment 01/25/2019 Telephone Surgery Jamison Escobar MD Tamayo, Corina, RN 01/23/2019 Anesthesia Surgery Event Sukh Harris MD MEDIAL BRANCH BLOCK 01/23/2019 Surgery Surgery Sukh Harris MD Chronic lumbar radiculopathy 01/23/2019 Hospital Surgery Encounter Doctor Unassigned, [place] 01/23/2019 Orders Only Sukh Harris MD Assessment 01/23/2019 Telephone Pain Medicine Sukh Harris MD Assessment; Back Pain 01/23/2019 Telephone Pain Medicine Unique Campos, WEB SITE ADMIN F/U 01/20/2019 Patient Case Management Outreach Adebayo [...] 01/12/2019 Office Visit Pain Medicine Unique Campos, WEB SITE ADMIN F/U 01/10/2019 Patient Case Management Outreach Leticia Handy MD Refill Request 01/09/2019 Refill Internal Medicine Maria Del Rosario Saucedo, MICHELLE Allergic reaction, initial encounter (Primary Dx) 01/07/2019 Emergency Emergency Medicine Mark Pacheco MD Refill Request 01/07/2019 Refill Family Medicine Chas Poon MD [place], Patrica, PT Radiculopathy of [...] Date Type Specialty Gerber Ni MD [address] [facility] [id number] [place], [place] [phone] Nurse, [facility] 04/12/2019 Nurse Visit Obstetrics & Gynecology Nurse, [facility] 04/19/2019 Nurse Visit Obstetrics & Gynecology Nurse, [facility] 04/26/2019 Nurse Visit Obstetrics & Gynecology Mauricio Yip MD [address] [place] [phone] 05/22/2019 Office Visit Cardiology Dieter Zhou MD [address] [place] [address] [id number] [place], [place] [phone] 07/05/2019 Office Visit Pulmonary Disease Marvin Oconnor MD [address] [place] [phone] 07/12/2019 Office Visit Internal Medicine Sukh Harris MD [address] [place] [address] [id number] [place], [place] [phone] 07/13/2019 Office Visit Pain HolualoaMarvin Oconnor MD [address] [place] [address] [phone] 08/07/2019 Office Visit Internal Medicine Zoila Rodas AGNP [address] [place] [phone] 08/30/2019 Office Visit Nephrology Health Maintenance Due [...] HEPATIC FUNCTION PANEL STAT 03/27/2019 Seizure-like activity ([id number]) (ALB,T.PRO,BILI 11:15 AM CDT T,BU/BC,ALT,AST,ALK PHOS) BASIC [...] CDT HEPATIC FUNCTION PANEL STAT 03/18/2019 Seizure ([id number]) (ALB,T.PRO,BILI 10:13 AM CDT T,BU/BC,ALT,AST,ALK PHOS) BASIC [...] 03/01/2019 Hypertension, unspecified 3:36 PM CDT type [facility] PATIENT FINANCIAL Routine 03/01/2019 POLICY 1:05 PM [...] CDT HEPATIC FUNCTION PANEL STAT 01/18/2019 Dysuria ([id number]) (ALB,T.PRO,BILI 5:30 PM CDT T,BU/BC,ALT,AST,ALK PHOS) BASIC [...] is included. TROPONIN I 0.002 <=0.034 ng/mL [facility] Specimen Blood - ARM, LEFT Narrative Performed At Equal or Less than 0.034 ng/ml---Normal [facility] Note: Cardiac troponin begins to rise 3-4 hours after the onset of ischemia. [facility] Repeat in 4-6 hours if the sample was drawn within 3-4 hours of the onset of the [place] symptom and found normal. Between 0.035 and [...] biotin. Performing Organization Address City/State/Zipcode Phone Number [facility] CLIA: [id number], [address] [place] [address] [facility] * XR CHEST 1 VW [...] normal. No acute bony abnormality. Procedure Note [facility], Radiant Results Inft User - 03/27/2019 5:52 [...] 5.81 4.30 - 11.10 [facility] 10*3/L [facility] RBC 4.78 3.93 - 5.25 10*6/L [facility] HGB 13.5 11.6 - 15.0 g/dL [facility] HCT 41.0 35.7 - 45.2 % [facility] MCV 85.8 80.6 - 95.5 fL [facility] MCH 28.2 25.9 - 32.8 pg [facility] MCHC 32.9 31.6 - 35.1 g/dL [facility] RDW-SD 40.7 39.0 - 49.9 fL [facility] RDW-CV 13.1 12.0 - 15.5 % [facility] PLT 190 166 - 358 10*3/L [facility] MPV 10.8 9.5 - 12.9 fL [facility] NRBC/100 WBC 0.0 0.0 - 10.0 /100 WBCs [facility] NRBC x10^3 <0.01 10*3/L [facility] GRAN MAT (NEUT) 59.5 % [facility] % [facility] IMM GRAN % 0.20 % [facility] LYMPH % 30.5 % [facility] MONO % 9.3 % [facility] EOS % 0.0 % [facility] BASO % 0.5 % [facility] GRAN MAT 3.46 1.88 - 7.09 10*3/uL [facility] x10^3(ANC) [facility] IMM GRAN x10^3 <0.03 0.00 - 0.06 10*3/uL [facility] LYMPH x10^3 1.77 1.32 - 3.29 10*3/uL [facility] MONO x10^3 0.54 0.33 - 0.92 10*3/uL [facility] EOS x10^3 <0.03 (L) 0.03 - 0.39 10*3/uL [facility] BASO x10^3 0.03 0.01 - 0.07 10*3/uL [facility] Specimen Blood - ARM, LEFT Performing Organization Address City/State/Zipcode Phone Number [facility] CLIA: [id number], [facility] [place], [place] [address] [facility] * N-TERMINAL PRO-BNP (03/27/2019 11:15 AM CDT) Only the most recent of 2 results within the time period is included. NT-proBNP 57 <=125 pg/mL [facility] Specimen Blood - ARM, LEFT Narrative Performed At Biotin has been reported to cause a negative bias, interpret results relative to [facility] patient's use of biotin. [facility] Performing Organization Address City/State/Zipcode Phone Number [facility] CLIA: [id number], [facility] [place] [address] [facility] * Urinalysis (03/27/2019 11:15 AM CDT) Only the most recent of 6 results within the time period is included. APPEARANCE Hazy (A) Clear [facility] COLOR Yellow Yellow [facility] PH 5.0 4.8 - 8.0 [facility] SP GRAVITY 1.016 1.003 - 1.030 [facility] GLU U QUAL Normal Normal [facility] BLOOD Negative Negative [facility] KETONES Negative Negative [facility] PROTEIN Negative Negative [facility] UROBILIN Normal Normal [facility] BILIRUBIN Negative Negative [facility] NITRITE Negative Negative [facility] LEUK MICHAEL 75/uL (A) Negative [facility] RBC/HPF 1 0 - 3 HPF [facility] WBC/HPF 5 0 - 5 HPF [facility] BACTERIA Negative Negative [facility] SQ EPITH 5 (H) <=2 HPF [facility] Specimen Urine - URINE, CLEAN CATCH Performing Organization Address City/[facility]/Zipcode Phone Number [facility] CLIA: [id number], [address] [place] [address] [facility] * Basic Metabolic Panel (NA, K, CL, CO2, GLUCOSE, BUN, CREATININE, CA) (03/27/2019 11:15 AM CDT) Only the most recent of 6 results within the time period is included. NA 142 135 - 145 mmol/L [facility] K 3.6 3.5 - 5.0 mmol/L [facility] CL 102 98 - 108 mmol/L [facility] CO2 TOTAL 30 23 - 31 mmol/L [facility] AGAP 10 2 - 16 [facility] BUN 20 7 - 23 mg/dL [facility] GLUCOSE 104 70 - 110 mg/dL [facility] CREATININE 0.74 0.50 - 1.04 mg/dL [facility] CALCIUM 9.9 8.6 - 10.6 mg/dL [facility] eGFR 79.3 mL/min/1.73m2 [facility] Calculation [facility]) eGFR 96.1 mL/min/1.73m2 [facility] Calculation [facility] ([facility]) Specimen Blood - ARM, LEFT Narrative Performed At Association of Glomerular Filtration Rate (GFR) and Staging of Kidney Disease* [facility] + + + + [facility] | GFR (mL/min/1.73 m2) | With Kidney [...] tests). Performing Organization Address City/State/Zipcode Phone Number [facility] CLIA: [id number], [address] [place] [address] [facility] * Hepatic Function Panel (ALB, T.PRO, BILI T, BU/BC, ALT, AST, ALK PHOS) (03/27/2019 11:15 AM CDT) Only the most recent of 3 results within the time period is included. TOTAL BILI 0.3 0.1 - 1.1 mg/dL [facility] BILI UNCON 0.2 0.1 - 1.1 mg/dL [facility] BILI CONJ 0.0 0.0 - 0.3 mg/dL [facility] T PROTEIN 7.2 6.3 - 8.2 g/dL [facility] ALBUMIN 4.4 3.5 - 5.0 g/dL [facility] ALK PHOS 71 34 - 122 U/L [facility] ALT(SGPT) 37 9 - 51 U/L [facility] AST(SGOT) 25 13 - 40 U/L [facility] Specimen Blood - ARM, LEFT Performing Organization Address City/[facility] Phone Number [facility] CLIA: [id number], [address] [place] [phone] [facility] * MAGNESIUM (03/27/2019 11:15 AM CDT) Only the most recent of 3 results within the time period is included. MAGNESIUM 1.9 1.7 - 2.4 mg/dL [facility] Specimen Blood - ARM, LEFT Performing Organization Address [facility] Phone Number [facility] CLIA: [id number], [address] [place] [phone] [facility] * CREATINE KINASE (03/27/2019 11:15 AM CDT) CK 84 33 - 194 U/L [facility] Specimen Blood - ARM, LEFT Performing Organization Address [facility] Phone Number [facility] CLIA: [id number], [address] [place] [phone] [facility] * PHOSPHORUS (03/27/2019 11:15 AM CDT) Only the most recent of 2 results within the time period is included. PHOSPHORUS 4.0 2.5 - 5.0 mg/dL [facility] Specimen Blood - ARM, LEFT Performing Organization Address [facility]/Zipcode Phone Number [facility] CLIA: [id number], [address] [place] [phone] [facility] * EKG-12 LEAD ROUTINE (03/27/2019 10:37 AM CDT) Narrative Performed At Agata Erazo FNP 03/27/2019 3:04 PM EKG-12 LEAD ROUTINE Date/Time: 03/27/2019 12:26 PM Performed by: Agata Erazo FNP Authorized by: Agata Erazo FNP ECG reviewed by ED Physician in the absence of a lumber tallier: yes Previous ECG: Previous ECG: Compared to [...] Specimen Performing Organization Address City/[facility]/[place] Phone Number [facility] * POCT URINALYSIS W SPECIFIC GRAVITY [...] Specimen Performing Organization Address City/[facility] Phone Number [facility] * URINE CULTURE (03/18/2019 3:12 PM CDT) Only the most recent of 2 results within the time period is included. URINE CULTURE >100,000 CFU/mL Escherichia [facility] coli SERVICES Specimen Urine - URINE, [...] disease. Performing Organization Address City/State/Zipcode Phone Number [facility] SERVICES CLIA: [id number], [address] [place] [address] [facility] * Drug Screen ER (03/18/2019 10:45 AM CDT) AMPHET Negative Negative [facility] Cocaine Negative Negative [facility] Metabolite [facility] OPIATES Negative Negative [facility] THC Negative Negative [facility] Specimen Urine - URINE, CLEAN CATCH Narrative Performed At Urine Drug Cutoff Ranges [facility] Amphetamine: 1,000 ng/mL [facility] Cocaine: 150 ng/mL [place] Opiates: 300 ng/mL Cannabinoids: 50 ng/mL The results are to be used only for medical (i.e., treatment) purposes. Unconfirmed screening results must not be used for non-medical purposes (e.g., employment testing, legal testing). Performing Organization Address City/State/Zipcode Phone Number [facility] CLIA: [id number], [address] [place] [address] [facility] * EKG-12 LEAD (03/18/2019 10:42 AM [...] the skull base are intact. Procedure Note [facility], Radiant Results Inft User - 03/18/2019 10:35 [...] Blood Performing Organization Address City/State/Zipcode Phone Number [facility] CLIA: [id number], [address] [place] [address] [facility] * EXTRA TUBE URINE CULTURE (03/18/2019 10:13 AM CDT) Specimen Urine - URINE, CLEAN CATCH Performing Organization Address [facility] Phone Number [facility] CLIA: [id number], [address] [place] [address] [facility] * aPTT (03/18/2019 10:13 AM CDT) APTT Patient 32 26 - 36 Seconds [facility] Specimen Blood - VENOUS Performing Organization Address [facility] Phone Number [facility] CLIA: [id number], [address] [place] [address] [facility] * Prothrombin Time (PT) / INR (03/18/2019 10:13 AM CDT) PROTIME PATIENT 11.4 10.1 - 12.6 Seconds [facility] INR 1.0Comment: Normal INR <1.1; [facility] Warfarin Therapeutic range 2.0 [facility] to 3.0 or 2.5 to 3.5, [facility] depending upon the indications. Specimen Blood - VENOUS Performing Organization Address [facility] Phone Number [facility] CLIA: [id number], [address] [place] [address] [facility] * Ethanol Level (03/18/2019 10:13 AM CDT) ALCOHOL <10 mg/dL [facility] Specimen Blood - VENOUS Narrative Performed At Toxic Greater than or equal to 80 mg/dL. [facility] NOTE: Whole blood values are approximately 10% to 15% lower than serum and [facility] plasma. CAMPUS Performing Organization Address [facility]/Zipcode Phone Number [facility] CLIA: [id number], [address] [place] [address] [facility] * HOSPITAL ADMISSION (03/18/2019 12:01 AM CDT) Only the most recent of 2 results within the time period is included. Specimen Performing Organization Address City/State/Zipcode Phone Number [facility] * REFERRAL- REQUEST/RESPONSE (03/07/2019 12:01 AM CDT) Specimen Performing Organization Address City/State/Zipcode Phone Number [facility] * PROTEIN CREAT RATIO URINE RANDOM (03/01/2019 4:34 PM CDT) T. PROT U 7 mg/dL [facility] CREAT U 102.0 mg/dL [facility] Protein/Creatin 0.1 0.0 - 2.0 [facility] ine Ratio Urine [facility] Specimen Urine - URINE, CLEAN CATCH Performing Organization Address City/State/Zipcode Phone Number [facility] CLIA: [id number], [address] [place] [address] [facility] * CBC W/NO DIFF (03/01/2019 3:36 PM CDT) WBC 6.21 4.30 - 11.10 [facility] 10*3/L [facility] RBC 5.05 3.93 - 5.25 10*6/L [facility] HGB 14.2 11.6 - 15.0 g/dL [facility] HCT 44.0 35.7 - 45.2 % [facility] MCH 28.1 25.9 - 32.8 pg [facility] MCV 87.1 80.6 - 95.5 fL [facility] MCHC 32.3 31.6 - 35.1 g/dL [facility] PLT 207 166 - 358 10*3/L [facility] MPV 10.5 9.5 - 12.9 fL [facility] RDW-CV 13.9 12.0 - 15.5 % [facility] RDW-SD 44.2 39.0 - 49.9 fL [facility] NRBC x10^3 <0.01 10*3/L [facility] NRBC/100 WBC 0.0 0.0 - 10.0 /100 WBCs [facility] IPF % 3.8Comment: Platelet count 1.3 - 7.7 % [facility] measured by fluorescence [facility] method. [facility] Specimen Blood Performing Organization Address [facility] Phone Number [facility] CLIA: [id number], [address] [place] [address] [facility] * [facility] PATIENT FINANCIAL POLICY (03/01/2019 1:05 PM CDT) Specimen Performing Organization Address [facility]/State/Zipcode Phone Number [facility] * NO SHOW OR MISSED APPOINTMENT POLICY ACKNOWLEDGEMENT (03/01/2019 1:04 PM CDT) Specimen Performing Organization Address [facility]/State/Zipcode Phone Number HIM * [place] TIME OR (NON-REPORTABLE) (02/15/2019 1:50 PM CDT) Only the most recent of 2 results within the time period is included. Specimen Narrative Performed At These images do not require a Radiology diagnostic report. PACS Performing Organization Address [facility]/State[facility] Phone Number PACS * CONSENT/REFUSAL FOR DIAGNOSIS AND TREATMENT (02/15/2019 10:55 AM CDT) Only the most recent of 2 results within the time period is included. Specimen Performing Organization Address [facility]/State/Zipcode Phone Number HIM * ASSIGNMENT OF BENEFITS (02/15/2019 10:54 AM CDT) Only the most recent of 2 results within the time period is included. Specimen Performing Organization Address [facility]/State/Zipcode Phone Number HIM * DAY SURGERY - [facility] (02/15/2019 12:01 AM CDT) Specimen Performing Organization Address [facility]/State/Zipcode Phone Number [facility] * PULMONARY FUNCTION TEST (RESULTS) (02/10/2019 11:14 AM CDT) Specimen Performing Organization Address [facility]/State/Zipcode Phone Number PFT * CT LOW [...] article (Adapted from the Fleischner Society 2017). http://pubs.rsna.org/doi/full/10.1148/radiol.8118935911 Narrative Performed At PROCEDURE: CT CHEST NON [...] article (Adapted from the Fleischner Society 2017). http://pubs.rsna.org/doi/full/10.1148/radiol.5081700754 Performing Organization Address City/State/Zipcode Phone Number PACS/VR/DOSE * DME/SUPPLY JUSTIFICATION (02/02/2019 12:01 AM CDT) Only the most recent of 2 results within the time period is included. Specimen Performing Organization Address City/State/Zipcode Phone Number HIM * DAY SURGERY - [place] [facility] (01/23/2019 12:01 AM CDT) Specimen Performing Organization [...] CDT) LIPASE 146 0 - 220 U/L [facility] SERVICES-[facility] Specimen Blood - VENOUS Performing Organization Address City/State/Zipcode Phone Number [facility] CLIA: [id number], [address] [place] [address] SERVICES-[facility] * EXTRA TUBE LT. BLUE (01/07/2019 5:05 PM CDT) Specimen Blood Performing Organization Address City/State/Zipcode Phone Number [facility] CLIA: [id number], [address] [place] [address] [facility] * EKG-12 LEAD (01/07/2019 4:45 PM CDT) Specimen Performing Organization Address City/State/Zipcode Phone Number HST from Last 3 Months Insurance Type Payer Benefit Subscriber ID Effective Phone Address Plan / Dates Group HMO [facility] [id number] 2019-P [phone] [address] [facility] [id number] [place] [address]
--- OUTSIDE RECORDS SUMMARY | 2019-06-09 13:31 | XMS REPORT | Clinical Summary ---
Author Author [facility] - Health Organization [facility] - Health Address Unknown Phone Unavailable Care Team Providers Care Director Multimedia Name Role Phone Fabien Fernandes MD Unavailable Marvin Oconnor MD PCP [place], Team 25 Unavailable Allergies Comments Active Allergy Reactions Severity Noted Date Azithromycin Itching 01/07/2019 Ciprofloxacin Rash 01/27/2018 Clindamycin Other - See Medium 10/05/2016 comments, Itching Clonazepam Itching, Medium 11/23/2017 Rash, Swelling All steroids-muscle weakness Corticosteroids Other - See 01/20/2016 (Glucocorticoids) comments Iodine Rash 10/05/2016 Lincomycin Rash Medium 09/15/2017 Nitrofurantoin Rash 01/27/2018 Other [place]-3s Anaphylaxis 01/27/2018 States it would be fatal Penicillins Other - See High 01/20/2016 comments, Shortness of Breath Shellfish Derived Other - See 03/18/2019 comments New string of tetanus- went to ER [...] bedtime. Active triamcinolone 55 mcg Use 1 [place] 1 Bottle 1 nasal inhalerIndications: in each [...] mouth at 9 Psychogenic nonepileptic bedtime. seizure Active ketorolac 10 mg Take 1 tablet 10 tablet 0 tabletIndications: Chest by mouth 9 pain, unspecified type, every 6 (six) Atypical chest pain, hours as Psychogenic nonepileptic needed for seizure Pain (scale 4-6) or Pain (scale 7-10). Active Nitrofurantoin&Nit. 0 Macrocryst 100 mg capsule 9 Active sulfamethoxazole-trimetho Take 1 tablet 6 tablet 0 prim (BACTRIM DS) 800-160 by mouth 2 9 mg per tabletIndications: (two) times Recurrent UTI daily. Status Hospital, Clinic, or Ordered Dose Route Frequency Start End Date Other Facility Date Administered Medication Ended lidocaine 1% (XYLOCAINE) Bladder Irri ONCE 04/19/20 20 mL, sodium bicarbonate 19 9 1 mEq/mL (8.4 %) 5 mEq, heparin 50,000 Units, water for injection, sterile 15 mL irrigationIndications: Chronic interstitial cystitis Ended lidocaine 1% (XYLOCAINE) Bladder Irri ONCE 04/26/20 20 mL, sodium bicarbonate 19 9 1 mEq/mL (8.4 %) 5 mEq, heparin 50,000 Units, water for injection, sterile 15 mL irrigationIndications: Chronic interstitial cystitis Active Problems Problem Noted Date Chronic lumbar radiculopathy 01/12/2019 Overview: Added automatically from request for surgery [id number] 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/12/2019 Overview: Added automatically from request for surgery [id number] Obesity (BMI 30-39.9) 12/16/2018 Recurrent UTI 05/17/2018 [...] Overview: Added automatically from request for surgery [id number] Encounters Care Team Description Date Type Specialty Ciara Merrill FNP Recurrent UTI (Primary Dx); Right flank pain 05/04/2019 Office Visit Urology Eleno Mcnamara MD Rx Concern/Question (Medication) 05/03/2019 Telephone Obstetrics & Gynecology Mauricio Yip MD Monitor, [facility] Holter 05/02/2019 Hospital Heart Station Encounter Doctor Unassigned, [place] 05/02/2019 Orders Only Eleno Mcnamara MD Recurrent UTI (urinary tract infection) (Primary Dx); Pain pelvic 05/01/2019 Office Visit Obstetrics & Gynecology Belinda Field FNP Psychogenic nonepileptic seizure (Primary Dx) 04/29/2019 Emergency Emergency Medicine Gerber Ni MD Nurse, [facility] Chronic interstitial cystitis (Primary Dx) 04/26/2019 Nurse Visit Obstetrics & Gynecology Mauricio Yip MD 1, [facility] Echo Room 1, [facility] Insurance Law Specialist Palpitations 04/25/2019 Hospital Echocardiograph Encounter Gerber Ni MD Nurse, [facility] Chronic interstitial cystitis (Primary Dx) 04/19/2019 Nurse Visit Obstetrics & Gynecology Mauricio Yip MD Palpitations (Primary Dx) 04/17/2019 Office Visit Cardiology Marvin Oconnor MD Generalized abdominal pain (Primary Dx); Hx of bleeding disorder; Frequency of urination; Flu vaccine need; Need for shingles vaccine 04/17/2019 Office Visit Internal Medicine Charlotte Mijares RN ED F/U 04/12/2019 Patient Case Management Outreach Cecilio Aceves MD Psychogenic nonepileptic seizure (Primary Dx); Chest pain, unspecified type; Atypical chest pain 04/11/2019 Emergency Emergency Medicine Eleno Mcnamara MD Assessment 04/10/2019 Telephone Obstetrics & Gynecology HandyLeticia MD Refill Request 04/06/2019 Refill Internal Medicine Gerber Ni MD Nurse, [facility] Chronic interstitial cystitis (Primary Dx) 04/05/2019 Nurse Visit Obstetrics & Gynecology Marvin Oconnor MD Viral URI with cough (Primary Dx); Nasal sinus congestion; Encounter for HCV screening test for low risk patient 04/03/2019 Office Visit Internal Medicine Jessie De Leon MD Adverse effect of drug, subsequent encounter (Primary Dx); Multiple drug allergies; Penicillin allergy 03/31/2019 Office Visit Allergy & Immunology: Internal Medicine Gerber Ni MD Nurse, [facility] Chronic interstitial cystitis (Primary Dx) 03/29/2019 Nurse Visit Obstetrics & Gynecology Charlotte Mijares RN ED F/U 03/28/2019 Patient Case Management Outreach Agata Erazo FNP Acute maxillary sinusitis, recurrence not specified (Primary Dx); Seizure-like activity; Chest pressure; Congestion of nasal sinus; Cough 03/27/2019 Emergency Emergency Medicine Unknown, Attending Nurse, [facility] Seizure (Primary Dx) 03/27/2019 Urgent Care Family Medicine Eleno Mcnamara MD Chronic interstitial cystitis (Primary Dx); Mixed stress and urge urinary incontinence; Recurrent UTI (urinary tract infection) 03/24/2019 Office Visit Obstetrics & Gynecology Doctor Unassigned, [place] 03/24/2019 Orders Only Charlotte Mijares RN Transition Of Care 03/22/2019 Transition of Case Management Care Giuliano Edwards, Maggie Mukherjee MD Seizure 03/18/2019 Emergency Medicine - Inpatient only - 03/21/2019 Leena Bañuelos DO Medical Records 03/15/2019 Telephone Internal [place] MD Lab Results 03/15/2019 Telephone Internal [place] MD Mixed incontinence urge and stress (Primary Dx); Bladder pain 03/13/2019 Office Visit Internal Medicine Zoila Rodas AGNP Notification 03/09/2019 Telephone Nephrology Zoila Rodas AGNP Assessment; Prescription; Allergic reaction 03/08/2019 Telephone Nephrology Sukh Harris MD Refill Request 03/06/2019 Refill Pain Medicine Leticia Handy MD Refill Request 03/05/2019 Refill Internal Medicine Zoila Rodas AGNP Vtc-Lab Hypertension, unspecified type 03/01/2019 [facility] Phlebotomy Visit Zoila Rodas AGNP Hypertension, unspecified type (Primary Dx) 03/01/2019 Office Visit Nephrology Doctor Unassigned, [place] 03/01/2019 Orders Only Lidya Patel MD Refill [...] radiculopathy 02/15/2019 Hospital Surgery Encounter Doctor Unassigned, [place] 02/15/2019 Orders Only Isak Butt MD Forms 02/15/2019 Telephone Internal Medicine Dieter Zhou MD Test, Vtc Pulmonary Function Dyspnea on exertion 02/10/2019 Scene [facility] Pulmonary Function Visit Technologist Dieter Zhou MD 02/10/2019 Orders Only Pulmonary Disease Sukh Harris MD Spondylosis of lumbar region without myelopathy or radiculopathy (Primary Dx) 02/09/2019 Office Visit Pain Medicine from Last 3 Months Immunizations Name Administration Dates Next Due Influenza Virus Vaccine 04/21/2018, 03/21/2017 Influenza Virus Vaccine 04/17/2019 Quad .5 mL IM 6+ MO Influenza Virus Vaccine 04/19/2018 Quad ID 18-64 YRS Zoster Vaccine 04/17/2019 (Deferred: Vaccine Unavailable) Recombinant Family History Medical History Relation Name Comments [...] Signs Reading Time Taken Comments Vital Sign 145/82 05/04/2019 9:57 AM MASK DESIGNER Blood Pressure 85 05/04/2019 9:57 AM MASK DESIGNER Pulse 37 C (98.6 F) 05/04/2019 9:57 AM MASK DESIGNER Temperature 18 05/04/2019 9:57 AM MASK DESIGNER Respiratory Rate 94% 05/04/2019 9:57 AM MASK DESIGNER Oxygen Saturation - - Inhaled Oxygen Concentration 84.1 kg (185 lb 6.4 oz) 05/04/2019 9:57 AM MASK DESIGNER Weight 154.9 cm (5' 1") 05/04/2019 9:57 AM MASK DESIGNER Height 35.03 05/04/2019 9:57 AM MASK DESIGNER Body Mass Index Plan of Treatment Care Team Description Date Type Specialty Ciara Merrill, NURSE EPIDEMIOLOGIST [address] [place] [address] [phone] 05/15/2019 Appointment Radiology Dieter Zhou MD [address] [place] [address] [phone] 07/05/2019 Office Visit Pulmonary Disease Marvin Oconnor MD [address] [place] [address] [place] [address] [phone] 07/12/2019 Office Visit Internal Medicine Sukh Harris MD [address] [facility] [id number] [place], [place] [id number] 07/13/2019 Office Visit Pain Medicine Boom Santiago MD [address] [place] [address]. [place] [phone] 07/20/2019 Office Visit Cardiology Marvin Oconnor MD [address] [place] [address] [place] [address] [phone] 08/07/2019 Office Visit Internal [place] MD [address] [place] [address] [place] [address] [phone] 08/21/2019 Office Visit Internal Medicine Zoila Rodas AGNP [address] [place] [address] [phone] 08/30/2019 Office Visit Nephrology Health Maintenance Due Date Last Done Comments HEPATITIS C (HCV) SCREEN 1955 DTaP,Tdap,and Td Vaccines 02/23/1975 (1 - Tdap) Zoster Recombinant 02/23/2006 Vaccine (SHINGRIX) (1 of 2) Breast Cancer Screening 08/08/2019 08/08/2018 (MAMMOGRAM) PAP SMEAR 08/02/2021 08/02/2018 COLONOSCOPY 08/19/2021 08/19/2016 INFLUENZA VACCINE Completed 04/17/2019, 04/21/2018, 03/21/2017 PNEUMOCOCCAL 0-64 YEARS Aged Out No longer eligible based COMBINED SERIES on patient's age to complete this topic Procedures Comments Procedure Name Priority Date/Time Associated Diagnosis CONSENT/REFUSAL FOR Routine 05/02/2019 DIAGNOSIS AND TREATMENT 9:01 AM MASK DESIGNER ASSIGNMENT OF BENEFITS Routine 05/02/2019 9:00 AM MASK DESIGNER URINE CULTURE Routine 05/01/2019 Recurrent UTI (urinary 4:25 PM MASK DESIGNER tract infection) Pain pelvic CYTO URINE Routine 05/01/2019 Recurrent UTI (urinary 4:22 PM MASK DESIGNER tract infection) Pain pelvic EKG-12 LEAD Routine 04/29/2019 3:32 PM MASK DESIGNER EMERGENCY SERVICES Routine 04/29/2019 AGREEMENTS AND 12:01 AM MASK DESIGNER AUTHORIZATIONS ECHO ROUTINE W/DOPPLER Routine 04/25/2019 Palpitations COLOR 1:58 PM MASK DESIGNER FLU VACC ([id number]), 6+ Routine 04/17/2019 Flu vaccine need MONTHS, IM, QUAD 8:39 AM CDT COMP. METABOLIC PANEL STAT 04/11/2019 Chest pain, unspecified (22252) 2:01 PM CDT type EKG-12 LEAD Routine 04/11/2019 1:49 PM CDT CBC WITH DIFFERENTIAL STAT 04/11/2019 Chest pain, unspecified 1:27 PM CDT type TROPONIN I STAT 04/11/2019 Chest pain, unspecified 1:27 PM CDT type CBC WITH DIFFERENTIAL STAT 04/11/2019 Chest pain, unspecified 1:27 PM CDT type EKG-12 LEAD Routine 04/11/2019 1:25 PM CDT EMERGENCY SERVICES Routine 04/11/2019 AGREEMENTS AND 12:01 AM CDT AUTHORIZATIONS AUTHORIZATION TO RELEASE Routine 04/07/2019 PHI TO [facility] 12:01 AM CDT AUTHORIZATION FOR RELEASE Routine 04/07/2019 OF PHI 12:01 AM CDT PSYCHIATRY CLINIC PATIENT Routine 04/07/2019 INFORMATION 12:01 AM CDT TROPONIN I STAT 03/27/2019 Chest pressure 2:08 [...] HEPATIC FUNCTION PANEL STAT 03/27/2019 Seizure-like activity (30136) (ALB,T.PRO,BILI 11:15 AM CDT T,BU/BC,ALT,AST,ALK PHOS) BASIC METABOLIC PANEL STAT 03/27/2019 Seizure-like activity (NA, K, CL, CO2, GLUCOSE, 11:15 AM CDT BUN, CREATININE, CA) CBC WITH DIFFERENTIAL Routine 03/27/2019 Seizure-like activity 11:15 AM CDT URINALYSIS STAT 03/27/2019 Seizure-like activity 11:15 AM CDT EKG-12 LEAD Routine 03/27/2019 11:10 AM CDT EKG-12 LEAD STAT 03/27/2019 Chest [...] CDT HEPATIC FUNCTION PANEL STAT 03/18/2019 Seizure (85537) (ALB,T.PRO,BILI 10:13 AM CDT T,BU/BC,ALT,AST,ALK PHOS) BASIC [...] 03/01/2019 Hypertension, unspecified 3:36 PM CDT type [facility] PATIENT FINANCIAL Routine 03/01/2019 POLICY 1:05 [...] TEST Routine 02/10/2019 (RESULTS) 11:14 AM CDT from Last 3 Months Results * CONSENT/REFUSAL FOR DIAGNOSIS AND TREATMENT (05/02/2019 9:01 AM MASK DESIGNER) Only the most recent of 2 results within the time period is included. Specimen Performing Organization Address City/[facility] Phone Number HIM * ASSIGNMENT OF BENEFITS (05/02/2019 9:00 AM MASK DESIGNER) Only the most recent of 2 results within the time period is included. Specimen Performing Organization Address City/[facility] Phone Number HIM * URINE CULTURE (05/01/2019 4:25 PM MASK DESIGNER) Only the most recent of 3 results within the time period is included. URINE CULTURE >100,000 CFU/mL Citrobacter [facility] freundii SERVICES Specimen Urine - URINE, CLEAN CATCH Antibiotic Method Susceptibility Organism Cefazolin SUSCEPTIBILITY TESTING >=64: Resistant Citrobacter freundii Ceftriaxone SUSCEPTIBILITY TESTING >=64: Resistant Citrobacter freundii Ertapenem SUSCEPTIBILITY TESTING <=0.5: Susceptible Citrobacter freundii Gentamicin SUSCEPTIBILITY TESTING <=1: Susceptible Citrobacter freundii Imipenem SUSCEPTIBILITY TESTING <=0.25: Susceptible Citrobacter freundii Levofloxacin SUSCEPTIBILITY TESTING <=0.12: Susceptible Citrobacter freundii Nitrofurantoin SUSCEPTIBILITY TESTING <=16: Susceptible Citrobacter freundii Piperacillin/Tazobactam SUSCEPTIBILITY TESTING >=128: Resistant Citrobacter freundii Trimethoprim/Sulfamethoxazole SUSCEPTIBILITY TESTING <=20: Susceptible Citrobacter freundii Comment: Nitrofurantoin is not recommended for use in treating pyelonephritis or systemic disease. Performing Organization Address [facility] Services[facility] Phone Number [facility] CLIA: [id number], [address] [place] [address] [facility] * CYTO URINE (05/01/2019 4:22 PM MASK DESIGNER) Case Report Non-Gynecologic Cytology [facility] SERVICES Case: [id number] Authorizing Provider: Eleno Mcnamara MD Collected: 05/01/2019 1898 Ordering Location: [facility] Received: 05/01/2019 69[address] [facility] Pathologist: Ellen Baer MD Specimen: URINE, CLEAN CATCH Final Diagnosis URINE, VOIDED: [facility] Electronically - NEGATIVE FOR MALIGNANCY (SEE SERVICES signed by Keyur, COMMENT) Ellen Louie MD I have personally reviewed all on 05/03/2019 at specimens/slides and agree 1:04 PM with all statements made by residents, fellows or pathologist assistants whose name(s) may appear on this report. Final Diagnosis Few benign urothelial cells, [facility] Comment admixed with squamous SERVICES epithelial cells are seen. No malignant cells identified. Clinical bladder pain [facility] Information SERVICES Gross A1. URINE, VOIDED [facility] Description Received is 30 cc's of urine SERVICES in 15 cc's PreservCyt preservative Prepared 2 slides (Papanicolaou stained: 1 cytospin preparation and 1 Thinprep preparation) Embedded Images [facility] SERVICES Specimen Urine - URINE, CLEAN CATCH Performing Organization Address City/State/Zipcode Phone Number [facility] CLIA: [id number], [address] [place] [address] * EKG-12 LEAD (04/29/2019 3:32 PM MASK DESIGNER) Specimen Performing Organization Address City/[facility]/Zipcode Phone Number [facility] * EMERGENCY SERVICES AGREEMENTS AND AUTHORIZATIONS (04/29/2019 12:01 AM MASK DESIGNER) Only the most recent of 3 results within the time period is included. Specimen Performing Organization Address City/[facility]/Zipcode Phone Number HIM * ECHO ROUTINE W/DOPPLER COLOR (04/25/2019 1:58 PM MASK DESIGNER) Specimen Performing Organization Address City/[facility]/Zipcode Phone Number ECHO * COMP. METABOLIC PANEL (20417) (04/11/2019 2:01 PM CDT) NA 138 135 - 145 mmol/L [facility] SERVICES K 3.7Comment: Slight hemolysis 3.5 - 5.0 mmol/L [facility] CL 102 98 - 108 mmol/L [facility] CO2 TOTAL 29 23 - 31 mmol/L [facility] AGAP 7 2 - 16 [facility] SERVICES BUN 13Comment: Slight hemolysis 7 - 23 mg/dL [facility] SERVICES GLUCOSE 99 70 - 110 mg/dL [facility] CREATININE 0.51 0.50 - 1.04 mg/dL [facility] TOTAL BILI 0.4 0.1 - 1.1 mg/dL [facility] SERVICES CALCIUM 9.4 8.6 - 10.6 mg/dL [facility] T PROTEIN 7.1 6.3 - 8.2 g/dL [facility] SERVICES ALBUMIN 4.3 3.5 - 5.0 g/dL [facility] ALK PHOS 68Comment: Slight hemolysis 34 - 122 U/L [facility] ALTv 31 5 - 35 U/L [facility] AST(SGOT) 39Comment: Slight hemolysis 13 - 40 U/L [facility] SERVICES eGFR 121.8 mL/min/1.73m2 [facility] Calculation SERVICES (Non-) eGFR 147.6 mL/min/1.73m2 [facility] Calculation SERVICES () Specimen Blood - VENOUS Narrative Performed At Association of Glomerular Filtration Rate (GFR) and Staging of Kidney Disease* [facility] + + + + SERVICES | GFR (mL/min/1.73 m2) | With Kidney Damage | Without Kidney Damage + + + + | >90 | [...] tests). Performing Organization Address City/State/Zipcode Phone Number [facility] CLIA: [id number], [address] [place] [address] * EKG-12 LEAD (04/11/2019 1:49 PM CDT) Specimen Performing Organization Address City/State/Zipcode Phone Number [facility] * CBC WITH DIFFERENTIAL (04/11/2019 1:27 PM CDT) Only the most recent of 4 results within the time period is included. WBC 8.40 4.30 - 11.10 [facility] 10*3/L SERVICES RBC 5.20 3.93 - 5.25 10*6/L [facility] SERVICES HGB 14.8 11.6 - 15.0 g/dL [facility] HCT 44.2 35.7 - 45.2 % [facility] MCV 85.0 80.6 - 95.5 fL [facility] MCH 28.5 25.9 - 32.8 pg [facility] MCHC 33.5 31.6 - 35.1 g/dL [facility] RDW-SD 40.3 39.0 - 49.9 fL [facility] RDW-CV 13.0 12.0 - 15.5 % [facility] PLT 191 166 - 358 10*3/L [facility] MPV 11.2 9.5 - 12.9 fL [facility] NRBC/100 WBC 0.0 0.0 - 10.0 /100 WBCs [facility] NRBC x10^3 <0.01 10*3/L [facility] GRAN MAT (NEUT) 55.7 % [facility] % SERVICES IMM GRAN % 0.20 % [facility] LYMPH % 34.0 % [facility] MONO % 9.6 % [facility] EOS % 0.0 % [facility] BASO % 0.5 % [facility] GRAN MAT 4.67 1.88 - 7.09 10*3/uL [facility] x10^3(ANC) SERVICES IMM GRAN x10^3 <0.03 0.00 - 0.06 10*3/uL [facility] LYMPH x10^3 2.86 1.32 - 3.29 10*3/uL [facility] MONO x10^3 0.81 0.33 - 0.92 10*3/uL [facility] EOS x10^3 <0.03 (L) 0.03 - 0.39 10*3/uL [facility] BASO x10^3 0.04 0.01 - 0.07 10*3/uL [facility] Specimen Blood - VENOUS Performing Organization Address City/State/Zipcode Phone Number [facility] CLIA: [id number], [address] [place] [address] [facility] * TROPONIN I (04/11/2019 1:27 PM CDT) Only the most recent of 4 results within the time period is included. TROPONIN I 0.008 <=0.034 ng/mL [facility] SERVICES Specimen Blood - VENOUS Narrative Performed At Equal or Less than 0.034 ng/ml---Normal [facility] Note: Cardiac troponin begins to rise 3-4 hours after the onset of ischemia. SERVICES Repeat in 4-6 hours if the sample was drawn within 3-4 hours of the onset of the symptom and found normal. Between 0.035 and [...] biotin. Performing Organization Address City/State/Zipcode Phone Number [facility] CLIA: [id number], [address] [place] [address] [facility] * PSYCHIATRY CLINIC PATIENT INFORMATION (04/07/2019 12:01 AM CDT) Specimen Performing Organization Address City/State/Zipcode Phone Number [facility] * AUTHORIZATION TO RELEASE PHI TO [facility] (04/07/2019 12:01 AM CDT) Specimen Performing Organization Address City/State/Zipcode Phone Number [facility] * AUTHORIZATION FOR RELEASE OF PHI (04/07/2019 12:01 AM CDT) Specimen Performing Organization Address City/State/Zipcode Phone Number [facility] * XR CHEST 1 VW (03/27/2019 11:27 [...] normal. No acute bony abnormality. Procedure Note [facility], Radiant Results Inft User - [...] Organization Address City/State/Zipcode Phone Number PACS/VR/DOSE * N-TERMINAL PRO-BNP (03/27/2019 11:15 AM CDT) Only the most recent of 2 results within the time period is included. NT-proBNP 57 <=125 pg/mL [facility] Specimen Blood - ARM, LEFT Narrative Performed At Biotin has been reported to cause a negative bias, interpret results relative to [facility] patient's use of biotin. [facility] Performing Organization Address City/State/Zipcode Phone Number [facility] CLIA: [id number], [address] [place] [address] [facility] * Urinalysis (03/27/2019 11:15 AM CDT) Only the most recent of 4 results within the time period is included. APPEARANCE Hazy (A) Clear [facility] COLOR Yellow Yellow [facility] PH 5.0 4.8 - 8.0 [facility] SP GRAVITY 1.016 1.003 - 1.030 [facility] GLU U QUAL Normal Normal [facility] BLOOD Negative Negative [facility] KETONES Negative Negative [facility] PROTEIN Negative Negative [facility] UROBILIN Normal Normal [facility] BILIRUBIN Negative Negative [facility] NITRITE Negative Negative [facility] LEUK MICHAEL 75/uL (A) Negative [facility] RBC/HPF 1 0 - 3 HPF [facility] WBC/HPF 5 0 - 5 HPF [facility] BACTERIA Negative Negative [facility] SQ EPITH 5 (H) <=2 HPF [facility] Specimen Urine - URINE, CLEAN CATCH Performing Organization Address City/State/Zipcode Phone Number [facility] CLIA: [id number], [address] [place], [place] [id number] [facility] * Basic Metabolic Panel (NA, K, CL, CO2, GLUCOSE, BUN, CREATININE, CA) (03/27/2019 11:15 AM CDT) Only the most recent of 4 results within the time period is included. NA 142 135 - 145 mmol/L [facility] K 3.6 3.5 - 5.0 mmol/L [facility] CL 102 98 - 108 mmol/L [facility] CO2 TOTAL 30 23 - 31 mmol/L [facility] AGAP 10 2 - 16 [facility] BUN 20 7 - 23 mg/dL [facility] GLUCOSE 104 70 - 110 mg/dL [facility] CREATININE 0.74 0.50 - 1.04 mg/dL [facility] CALCIUM 9.9 8.6 - 10.6 mg/dL [facility] eGFR 79.3 mL/min/1.73m2 [facility] Calculation [facility] (Non-[facility]) eGFR 96.1 mL/min/1.73m2 [facility] Calculation [facility] ([facility] [place]) Specimen Blood - ARM, LEFT Narrative Performed At Association of Glomerular Filtration Rate (GFR) and Staging of Kidney Disease* [facility] + + + + [facility] | GFR (mL/min/1.73 m2) | With Kidney [...] abnormalities in imaging tests). Performing Organization Address City/[facility] Phone Number [facility] CLIA: [id number], [address] [id number] [facility] * Hepatic Function Panel (ALB, T.PRO, BILI T, BU/BC, ALT, AST, ALK PHOS) (03/27/2019 11:15 AM CDT) Only the most recent of 2 results within the time period is included. TOTAL BILI 0.3 0.1 - 1.1 mg/dL [facility] BILI UNCON 0.2 0.1 - 1.1 mg/dL [facility] BILI CONJ 0.0 0.0 - 0.3 mg/dL [facility] T PROTEIN 7.2 6.3 - 8.2 g/dL [facility] ALBUMIN 4.4 3.5 - 5.0 g/dL [facility] ALK PHOS 71 34 - 122 U/L [facility] ALT(SGPT) 37 9 - 51 U/L [facility] AST(SGOT) 25 13 - 40 U/L [facility] Specimen Blood - ARM, LEFT Performing Organization Address City/[facility]/Zipcode Phone Number [facility] CLIA: [id number], [address] [place] [address] [facility] * MAGNESIUM (03/27/2019 11:15 AM CDT) Only the most recent of 3 results within the time period is included. MAGNESIUM 1.9 1.7 - 2.4 mg/dL [facility] Specimen Blood - ARM, LEFT Performing Organization Address [facility] Servicescode Phone Number [facility] CLIA: [id number], [address] [place] [address] [facility] * CREATINE KINASE (03/27/2019 11:15 AM CDT) CK 84 33 - 194 U/L [facility] Specimen Blood - ARM, LEFT Performing Organization Address [facility] Servicescook Phone Number [facility] CLIA: [id number], [address] [place] [address] [facility] * PHOSPHORUS (03/27/2019 11:15 AM CDT) Only the most recent of 2 results within the time period is included. PHOSPHORUS 4.0 2.5 - 5.0 mg/dL [facility] Specimen Blood - ARM, LEFT Performing Organization Address [facility] Servicescode Phone Number [facility] CLIA: [id number], [address] [place] [address] [facility] * EKG-12 LEAD (03/27/2019 11:10 AM CDT) Specimen Performing Organization Address City/[facility] Servicescode Phone Number [facility] * EKG-12 LEAD ROUTINE (03/27/2019 10:37 AM CDT) Narrative Performed At Agata Erazo FNP 03/27/2019 3:04 PM EKG-12 LEAD ROUTINE Date/Time: 03/27/2019 12:26 PM Performed by: Agata Erazo FNP Authorized by: Agata Erazo FNP ECG reviewed by ED Physician in the absence of a pushcart peddler: yes Previous ECG: Previous ECG: Compared to current Comparison ECG info: 11/2018 Similarity: No change Interpretation: Interpretation: non-specific Rate: ECG rate: 72 ECG rate assessment: normal Rhythm: Rhythm: sinus rhythm Ectopy: Ectopy: none QRS: QRS axis: Normal QRS intervals: Normal Conduction: Conduction: normal ST segments: ST segments: Normal T waves: T waves: normal Comments: Incomplete RBBB seen on old EKG as well. * POCT URINALYSIS W SPECIFIC GRAVITY (03/24/2019 [...] * PATIENT QUESTIONNAIRE (03/24/2019 12:01 AM CDT) Specimen Performing Organization Address City/State/Zipcode Phone Number HIM * Drug Screen ER (03/18/2019 10:45 AM CDT) AMPHET Negative Negative [facility] Cocaine Negative Negative [facility] Metabolite SERVICES-[facility] OPIATES Negative Negative [facility] THC Negative Negative [facility] Specimen Urine - URINE, CLEAN CATCH Narrative Performed At Urine Drug Cutoff Ranges [facility] Amphetamine: 1,000 ng/mL [facility] Cocaine: 150 ng/mL CAMP[facility] Opiates: 300 ng/mL Cannabinoids: 50 ng/mL The results are to be used only for medical (i.e., treatment) purposes. Unconfirmed screening results must not be used for non-medical purposes (e.g., employment testing, legal testing). Performing Organization Address City/State/Zipcode Phone Number [facility] CLIA: [id number], [address] [place] [address] [facility] * EKG-12 LEAD (03/18/2019 10:42 AM CDT) Specimen Performing Organization Address City/State/Zipcode Phone Number [facility] * CT HEAD WO CONTRAST (03/18/2019 10:24 AM CDT) Specimen Impressions Performed At Impression: PACS/VR/DOSE No acute intracranial abnormality Charmaine Sam MD., have reviewed this study and [...] the skull base are intact. Procedure Note [facility], Radiant Results Inft User - 03/18/2019 10:35 [...] intact. IMPRESSION Impression: No acute intracranial abnormality Charmaine Sam MD., have reviewed this study and agree with the above report. Performing Organization Address [facility] Servicescook Phone Number PACS/VR/DOSE * EXTRA TUBE DK. GREEN (03/18/2019 10:13 AM CDT) Specimen Blood Performing Organization Address [facility] Phone Number [facility] CLIA: [id number], [address] [place] [address] [facility] * EXTRA TUBE URINE CULTURE (03/18/2019 10:13 AM CDT) Specimen Urine - URINE, CLEAN CATCH Performing Organization Address [facility] Phone Number [facility] CLIA: [id number], [address] [place] [address] [facility] * aPTT (03/18/2019 10:13 AM CDT) APTT Patient 32 26 - 36 Seconds [facility] Specimen Blood - VENOUS Performing Organization Address [facility] Phone Number [facility] CLIA: [id number], [address] [place] [address] [facility] * Prothrombin Time (PT) / INR (03/18/2019 10:13 AM CDT) PROTIME PATIENT 11.4 10.1 - 12.6 Seconds [facility] INR 1.0Comment: Normal INR <1.1; [facility] Warfarin Therapeutic range 2.0 [facility] to 3.0 or 2.5 to 3.5, [facility] depending upon the indications. Specimen Blood - VENOUS Performing Organization Address [facility] Phone Number [facility] CLIA: [id number], [address] [place] [address] [facility] * Ethanol Level (03/18/2019 10:13 AM CDT) ALCOHOL <10 mg/dL [facility] Specimen Blood - VENOUS Narrative Performed At Toxic Greater than or equal to 80 mg/dL. [facility] NOTE: Whole blood values are approximately 10% to 15% lower than serum and [facility] plasma. CAMPUS Performing Organization Address [facility] Phone Number [facility] CLIA: [id number], [address] [place] [address] [facility] * HOSPITAL ADMISSION (03/18/2019 12:01 AM CDT) Only the most recent of 2 results within the time period is included. Specimen Performing Organization Address [facility] Servicescode Phone Number [facility] * REFERRAL- REQUEST/RESPONSE (03/07/2019 12:01 AM CDT) Specimen Performing Organization Address City/[facility]/Zipcode Phone Number HIM * PROTEIN CREAT RATIO URINE RANDOM (03/01/2019 4:34 PM CDT) T. PROT U 7 mg/dL [facility] CREAT U 102.0 mg/dL [facility] Protein/Creatin 0.1 0.0 - 2.0 [facility] ine Ratio Urine [facility] Specimen Urine - URINE, CLEAN CATCH Performing Organization Address [facility] Phone Number [facility] CLIA: [id number], [address] [place] [address] [facility] * CBC W/NO DIFF (03/01/2019 3:36 PM CDT) WBC 6.21 4.30 - 11.10 [facility] 10*3/L [facility] RBC 5.05 3.93 - 5.25 10*6/L [facility] HGB 14.2 11.6 - 15.0 g/dL [facility] HCT 44.0 35.7 - 45.2 % [facility] MCH 28.1 25.9 - 32.8 pg [facility] MCV 87.1 80.6 - 95.5 fL [facility] MCHC 32.3 31.6 - 35.1 g/dL [facility] PLT 207 166 - 358 10*3/L [facility] MPV 10.5 9.5 - 12.9 fL [facility] RDW-CV 13.9 12.0 - 15.5 % [facility] RDW-SD 44.2 39.0 - 49.9 fL [facility] NRBC x10^3 <0.01 10*3/L [facility] NRBC/100 WBC 0.0 0.0 - 10.0 /100 WBCs [facility] IPF % 3.8Comment: Platelet count 1.3 - 7.7 % [facility] measured by fluorescence [facility] method. [facility] Specimen Blood Performing Organization Address City/State/Zipcode Phone Number [facility] CLIA: [id number], [address] [place] [address] [facility] * [facility] PATIENT FINANCIAL POLICY (03/01/2019 1:05 PM CDT) Specimen Performing Organization Address City/State/Zipcode Phone Number HIM * NO SHOW OR MISSED APPOINTMENT POLICY ACKNOWLEDGEMENT (03/01/2019 1:04 PM CDT) Specimen Performing Organization Address City/State/Zipcode Phone Number HIM * FL TIME OR (NON-REPORTABLE) (02/15/2019 1:50 PM CDT) Specimen Narrative Performed At These images do not require a Radiology diagnostic report. PACS Performing Organization Address City/State/Zipcode Phone Number PACS * DAY SURGERY - [facility] (02/15/2019 12:01 AM CDT) Specimen Performing Organization Address City/State/Zipcode Phone Number HIM * PULMONARY FUNCTION TEST (RESULTS) (02/10/2019 11:14 AM CDT) Specimen Performing Organization Address City/State/Zipcode Phone Number PFT from Last 3 Months Insurance Type Payer Benefit Subscriber ID Effective Phone Address Plan / Dates Group HMO HIM [facility] [employer] [id number] 2019-P [phone] [address] [facility] [id number] [place] [address]
--- OUTSIDE RECORDS SUMMARY | 2019-06-09 13:31 | XMS REPORT | Clinical Summary ---
Author Author [facility] - Health Organization [facility] - Health Address Unknown Phone Unavailable Care Team Providers Care Source Inspector Name Role Phone Fabien Fernandes MD Unavailable [...] Rash Medium 09/15/2017 Nitrofurantoin Rash 01/27/2018 Other [place]-3s Anaphylaxis 01/27/2018 States it would be fatal [...] bedtime. Active triamcinolone 55 mcg Use 1 [place] 1 Bottle 1 nasal inhalerIndications: in each [...] Overview: Added automatically from request for surgery [id number] 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/12/2019 Overview: Added automatically from request for surgery [id number] Obesity (BMI 30-39.9) 12/16/2018 Recurrent UTI 05/17/2018 [...] Overview: Added automatically from request for surgery [id number] Encounters Care Team Description Date Type Specialty Ciara Merrill FNP Recurrent UTI (Primary Dx); Right flank pain 05/04/2019 Office Visit Urology Eleno Mcnamara MD Rx Concern/Question (Medication) 05/03/2019 Telephone Obstetrics & Gynecology Mauricio Yip MD Monitor, Clc Holter 05/02/2019 Hospital Heart Station Encounter Doctor Unassigned, [place] 05/02/2019 Orders Only Eleno Mcnamara MD Recurrent UTI (urinary tract infection) (Primary Dx); Pain pelvic 05/01/2019 Office Visit Obstetrics & Gynecology Belinda Field FNP Psychogenic nonepileptic seizure (Primary Dx) 04/29/2019 Emergency Emergency Medicine Gerber Ni MD Nurse, [facility] Chronic interstitial cystitis (Primary Dx) 04/26/2019 Nurse Visit Obstetrics & Gynecology Mauricio Yip MD 1, [facility] Echo Room 1, [facility] Ic Designer Standard Cells Palpitations 04/25/2019 Hospital Echocardiograph Encounter Gerber Ni MD Nurse, [facility] Chronic interstitial cystitis (Primary Dx) 04/19/2019 Nurse [...] Refill Internal Medicine Gerber Ni MD Nurse, [facility] Chronic interstitial cystitis (Primary Dx) 04/05/2019 Nurse [...] Immunology: Internal Medicine Gerber Ni MD Nurse, [facility] Chronic interstitial cystitis (Primary Dx) 03/29/2019 Nurse Visit Obstetrics & Gynecology Charlotte Mijares RN ED F/U 03/28/2019 Patient Case Management Outreach Agata Erazo FNP Acute maxillary sinusitis, recurrence not specified (Primary Dx); Seizure-like activity; Chest pressure; Congestion of nasal sinus; Cough 03/27/2019 Emergency Emergency Medicine Unknown, Attending Nurse, [facility] Seizure (Primary Dx) 03/27/2019 Urgent Care Family Medicine Eleno Mcnamara MD Chronic interstitial cystitis (Primary Dx); Mixed stress and urge urinary incontinence; Recurrent UTI (urinary tract infection) 03/24/2019 Office Visit Obstetrics & Gynecology Doctor Unassigned, [place] 03/24/2019 Orders Only Charlotte Mijares RN Transition Of Care 03/22/2019 Transition of Case Management Care Giuliano Edwards, Maggie Mukherjee MD Seizure 03/18/2019 Emergency Medicine - Inpatient only - 03/21/2019 Leena Bañuelos DO Medical Records 03/15/2019 Telephone Internal [place] Lab Results 03/15/2019 Telephone Internal [place] MD Mixed incontinence urge and stress (Primary Dx); Bladder pain 03/13/2019 Office Visit Internal Medicine Zoila Rodas AGNP Notification 03/09/2019 Telephone Nephrology Zoila Rodas AGNP Assessment; Prescription; Allergic reaction 03/08/2019 Telephone Nephrology Sukh Harris MD Refill Request 03/06/2019 Refill Pain Medicine Leticia Handy MD Refill Request 03/05/2019 Refill Internal Medicine Zoila Rodas AGNP Vtc-Lab Hypertension, unspecified type 03/01/2019 Chief Power Dispatcher Phlebotomy Visit Zoila Rodas AGNP Hypertension, unspecified type (Primary Dx) 03/01/2019 Office Visit Nephrology Doctor Unassigned, [place] 03/01/2019 Orders Only Lidya Patel MD Refill Request 03/01/2019 Refill Nephrology Carmel Gamez MD Assessment 02/17/2019 Telephone Surgery Leena Bañuelos DO Forms (wheel chair) 02/16/2019 Telephone Internal Medicine Isak Butt MD Forms 02/16/2019 Telephone Internal Medicine Esther Vickers MD Randle, Darlene, RN 02/15/2019 Anesthesia Surgery Event Sukh aHrris MD RADIOFREQUENCY THERMOCOAGULATION 02/15/2019 Surgery Surgery Sukh Harris MD Spondylosis of lumbar region without myelopathy or radiculopathy 02/15/2019 Hospital Surgery Encounter Doctor Unassigned, [place] 02/15/2019 Orders Only Isak Butt MD Forms 02/15/2019 Telephone Internal Medicine Dieter Zhou MD Test, Vtc Pulmonary Function Dyspnea on exertion 02/10/2019 Chief Power Dispatcher Pulmonary Function Visit Technologist Dieter Zhou MD [...] Comments Vital Sign 145/82 05/04/2019 9:57 AM PERINATAL TECH Blood Pressure 85 05/04/2019 9:57 AM PERINATAL TECH Pulse 37 C (98.6 F) 05/04/2019 9:57 AM PERINATAL TECH Temperature 18 05/04/2019 9:57 AM PERINATAL TECH Respiratory Rate 94% 05/04/2019 9:57 AM PERINATAL TECH Oxygen Saturation - - Inhaled Oxygen Concentration 84.1 kg (185 lb 6.4 oz) 05/04/2019 9:57 AM PERINATAL TECH Weight 154.9 cm (5' 1") 05/04/2019 9:57 AM PERINATAL TECH Height 35.03 05/04/2019 9:57 AM PERINATAL TECH Body Mass Index Plan of Treatment Care Team Description Date Type Specialty Ciara Merrill, GARBAGE WORKER [address] [place] [address] [phone] 05/15/2019 Appointment Radiology Dieter Zhou MD [address] [place] [address] [phone] 07/05/2019 Office Visit Pulmonary Disease Marvin Oconnor MD [address] [place] [address] [place] [address] [phone] 07/12/2019 Office Visit Internal Medicine Sukh Harris MD [address] [facility] [address] [place], [place] [address] 07/13/2019 Office Visit Pain Medicine Boom Santiago MD [address] [place] [address]. [place] [phone] 07/20/2019 Office Visit Cardiology Marvin Oconnor MD [address] [place] [place] [address] [phone] 08/07/2019 Office Visit Internal [place] MD [address] [place] [address] [place] [address] [phone] 08/21/2019 Office Visit Internal Medicine Zoila Rodas AGNP [address] [place] [address] [phone] 08/30/2019 Office Visit Nephrology Health Maintenance Due [...] Routine 05/02/2019 DIAGNOSIS AND TREATMENT 9:01 AM PERINATAL TECH ASSIGNMENT OF BENEFITS Routine 05/02/2019 9:00 AM PERINATAL TECH URINE CULTURE Routine 05/01/2019 Recurrent UTI (urinary 4:25 PM PERINATAL TECH tract infection) Pain pelvic CYTO URINE Routine 05/01/2019 Recurrent UTI (urinary 4:22 PM PERINATAL TECH tract infection) Pain pelvic EKG-12 LEAD Routine 04/29/2019 3:32 PM PERINATAL TECH EMERGENCY SERVICES Routine 04/29/2019 AGREEMENTS AND 12:01 AM PERINATAL TECH AUTHORIZATIONS ECHO ROUTINE W/DOPPLER Routine 04/25/2019 Palpitations COLOR 1:58 PM PERINATAL TECH FLU VACC ([id number]), 6+ Routine 04/17/2019 Flu vaccine need MONTHS, IM, QUAD 8:39 AM CDT COMP. METABOLIC PANEL STAT 04/11/2019 Chest pain, unspecified (25805) 2:01 PM CDT type EKG-12 LEAD Routine [...] AUTHORIZATION TO RELEASE Routine 04/07/2019 PHI TO [facility] 12:01 AM CDT AUTHORIZATION FOR RELEASE Routine [...] HEPATIC FUNCTION PANEL STAT 03/27/2019 Seizure-like activity (33724) (ALB,T.PRO,BILI 11:15 AM CDT T,BU/BC,ALT,AST,ALK PHOS) BASIC [...] CDT HEPATIC FUNCTION PANEL STAT 03/18/2019 Seizure (55025) (ALB,T.PRO,BILI 10:13 AM CDT T,BU/BC,ALT,AST,ALK PHOS) BASIC [...] 03/01/2019 Hypertension, unspecified 3:36 PM CDT type [facility] PATIENT FINANCIAL Routine 03/01/2019 POLICY 1:05 [...] FOR DIAGNOSIS AND TREATMENT (05/02/2019 9:01 AM PERINATAL TECH) Only the most recent of 2 results within the time period is included. Specimen Performing Organization Address City/[facility] Phone Number HIM * ASSIGNMENT OF BENEFITS (05/02/2019 9:00 AM PERINATAL TECH) Only the most recent of 2 results within the time period is included. Specimen Performing Organization Address City/[facility] Services[facility] Phone Number HIM * URINE CULTURE (05/01/2019 4:25 PM PERINATAL TECH) Only the most recent of 3 results within the time period is included. URINE CULTURE >100,000 CFU/mL Citrobacter [facility] freundii SERVICES Specimen Urine - URINE, [...] pyelonephritis or systemic disease. Performing Organization Address [facility] Phone Number [facility] CLIA: [id number], [address] [place] [address] [facility] * CYTO URINE (05/01/2019 4:22 PM PERINATAL TECH) Case Report Non-Gynecologic Cytology [facility] Case: [id number] Authorizing Provider: Eleno Mcnamara MD Collected: 05/01/2019 [id number] Ordering Location: [facility] Received: 05/01/2019 2411 [facility] Pathologist: Ellen Baer MD Specimen: URINE, CLEAN CATCH Final Diagnosis URINE, VOIDED: [facility] Electronically - NEGATIVE FOR MALIGNANCY (SEE SERVICES signed by Keyur, COMMENT) Ellen Louie MD I have personally reviewed all on 05/03/2019 at specimens/slides and agree 1:04 PM with all statements made by residents, fellows or pathologist assistants whose name(s) may appear on this report. Final Diagnosis Few benign urothelial cells, [facility] Comment admixed with squamous SERVICES epithelial cells are seen. No malignant cells identified. Clinical bladder pain [facility] Information SERVICES Gross A1. URINE, VOIDED [facility] Description Received is 30 cc's of urine SERVICES in 15 cc's PreservCyt preservative Prepared 2 slides (Papanicolaou stained: 1 cytospin preparation and 1 Thinprep preparation) Embedded Images [facility] SERVICES Specimen Urine - URINE, CLEAN CATCH Performing Organization Address City/State/Zipcode Phone Number [facility] CLIA: [id number], [address] [place] [address] * EKG-12 LEAD (04/29/2019 3:32 PM PERINATAL TECH) Specimen Performing Organization Address City/[facility]/Zipcode Phone Number [facility]ST * EMERGENCY SERVICES AGREEMENTS AND AUTHORIZATIONS (04/29/2019 12:01 AM PERINATAL TECH) Only the most recent of 3 results within the time period is included. Specimen Performing Organization Address City/[facility]/Zipcode Phone Number HIM * ECHO ROUTINE W/DOPPLER COLOR (04/25/2019 1:58 PM PERINATAL TECH) Specimen Performing Organization Address City/[facility]/Zipcode Phone Number ECHO * COMP. METABOLIC PANEL (76742) (04/11/2019 2:01 PM CDT) NA 138 135 - 145 mmol/L [facility] K 3.7Comment: Slight hemolysis 3.5 - 5.0 mmol/L [facility] CL 102 98 - 108 mmol/L [facility] CO2 TOTAL 29 23 - 31 mmol/L [facility] AGAP 7 2 - 16 [facility] BUN 13Comment: Slight hemolysis 7 - 23 mg/dL [facility] GLUCOSE 99 70 - 110 mg/dL [facility] CREATININE 0.51 0.50 - 1.04 mg/dL [facility] TOTAL BILI 0.4 0.1 - 1.1 mg/dL [facility] CALCIUM 9.4 8.6 - 10.6 mg/dL [facility] T PROTEIN 7.1 6.3 - 8.2 g/dL [facility] ALBUMIN 4.3 3.5 - 5.0 g/dL [facility] ALK PHOS 68Comment: Slight hemolysis 34 - 122 U/L [facility] ALTv 31 5 - 35 U/L [facility] AST(SGOT) 39Comment: Slight hemolysis 13 - 40 U/L [facility] SERVICES eGFR 121.8 mL/min/1.73m2 [facility] Calculation SERVICES (Non-) eGFR 147.6 mL/min/1.73m2 [facility] Calculation SERVICES () Specimen Blood - VENOUS Narrative Performed At Association of Glomerular Filtration Rate (GFR) and Staging of Kidney Disease* [facility] + + + + SERVICES | [...] tests). Performing Organization Address City/State/Zipcode Phone Number [facility] CLIA: [id number], [address] [place] [address] * EKG-12 LEAD (04/11/2019 1:49 PM CDT) Specimen Performing Organization Address City/State/Zipcode Phone Number [facility] * CBC WITH DIFFERENTIAL (04/11/2019 1:27 PM CDT) Only the most recent of 4 results within the time period is included. WBC 8.40 4.30 - 11.10 [facility] 10*3/L SERVICES RBC 5.20 3.93 - 5.25 10*6/L [facility] HGB 14.8 11.6 - 15.0 [...] SERVICES MPV 11.2 9.5 - 12.9 fL [facility] NRBC/100 WBC 0.0 0.0 - [...] VENOUS Performing Organization Address City/State/Zipcode Phone Number [facility] CLIA: [id number], [address] [place] [address] [facility] * TROPONIN I (04/11/2019 1:27 PM CDT) Only the most recent of 4 results within the time period is included. TROPONIN I 0.008 <=0.034 ng/mL [facility] SERVICES Specimen Blood - VENOUS Narrative Performed At Equal or Less than 0.034 ng/ml---Normal [facility] Note: Cardiac troponin begins to [...] biotin. Performing Organization Address City/State/Zipcode Phone Number [facility] CLIA: [id number], [address] [place] [address] [facility] * PSYCHIATRY CLINIC PATIENT INFORMATION (04/07/2019 12:01 AM CDT) Specimen Performing Organization Address City/State/Zipcode Phone Number [facility] * AUTHORIZATION TO RELEASE PHI TO [facility] (04/07/2019 12:01 AM CDT) Specimen Performing Organization Address City/State/Zipcode Phone Number [facility] * AUTHORIZATION FOR RELEASE OF PHI (04/07/2019 12:01 AM CDT) Specimen Performing Organization Address City/State/Zipcode Phone Number [facility] * XR CHEST 1 VW (03/27/2019 11:27 [...] normal. No acute bony abnormality. Procedure Note [facility], Radiant Results Inft User - 03/27/2019 5:52 [...] period is included. NT-proBNP 57 <=125 pg/mL [facility] Specimen Blood - ARM, LEFT Narrative Performed At Biotin has been reported to cause a negative bias, interpret results relative to [facility] patient's use of biotin. [facility] Performing Organization Address City/State/Zipcode Phone Number [facility] CLIA: [id number], [address] [place] [address] [facility] * Urinalysis (03/27/2019 11:15 AM CDT) Only the most recent of 4 results within the time period is included. APPEARANCE Hazy (A) Clear [facility] COLOR Yellow Yellow [facility] PH 5.0 4.8 - 8.0 [facility] SP GRAVITY 1.016 1.003 - 1.030 [facility] GLU U QUAL Normal Normal [facility] BLOOD Negative Negative [facility] KETONES Negative Negative [facility] PROTEIN Negative Negative [facility] UROBILIN Normal Normal [facility] BILIRUBIN Negative Negative [facility] NITRITE Negative Negative [facility] LEUK MICHAEL 75/uL (A) Negative [facility] RBC/HPF 1 0 - 3 HPF [facility] WBC/HPF 5 0 - 5 HPF [facility] BACTERIA Negative Negative [facility] SQ EPITH 5 (H) <=2 HPF [facility] Specimen Urine - URINE, CLEAN CATCH Performing Organization Address City/State/Zipcode Phone Number [facility] CLIA: [id number], [address] [place], [place] [id number] [facility] * Basic Metabolic Panel (NA, K, CL, CO2, GLUCOSE, BUN, CREATININE, CA) (03/27/2019 11:15 AM CDT) Only the most recent of 4 results within the time period is included. NA 142 135 - 145 mmol/L [facility] K 3.6 3.5 - 5.0 mmol/L [facility] CL 102 98 - 108 mmol/L [facility] CO2 TOTAL 30 23 - 31 mmol/L [facility] AGAP 10 2 - 16 [facility] BUN 20 7 - 23 mg/dL [facility] GLUCOSE 104 70 - 110 mg/dL [facility] CREATININE 0.74 0.50 - 1.04 mg/dL [facility] CALCIUM 9.9 8.6 - 10.6 mg/dL [facility] eGFR 79.3 mL/min/1.73m2 [facility] Calculation [facility] (Non-[facility]) eGFR 96.1 mL/min/1.73m2 [facility] Calculation [facility] ([facility]) Specimen Blood - ARM, LEFT Narrative Performed At Association of Glomerular Filtration Rate (GFR) and Staging of Kidney Disease* [facility] + + + + [facility] | GFR (mL/min/1.73 m2) | With Kidney [...] abnormalities in imaging tests). Performing Organization Address City/[facility] Phone Number [facility] CLIA: [id number], [address] [phone] [facility] * Hepatic Function Panel (ALB, T.PRO, BILI T, BU/BC, ALT, AST, ALK PHOS) (03/27/2019 11:15 AM CDT) Only the most recent of 2 results within the time period is included. TOTAL BILI 0.3 0.1 - 1.1 mg/dL [facility] BILI UNCON 0.2 0.1 - 1.1 mg/dL [facility] BILI CONJ 0.0 0.0 - 0.3 mg/dL [facility] T PROTEIN 7.2 6.3 - 8.2 g/dL [facility] ALBUMIN 4.4 3.5 - 5.0 g/dL [facility] ALK PHOS 71 34 - 122 U/L [facility] ALT(SGPT) 37 9 - 51 U/L [facility] AST(SGOT) 25 13 - 40 U/L [facility] Specimen Blood - ARM, LEFT Performing Organization Address City/[facility]/Zipcode Phone Number [facility] CLIA: [id number], [address] [place] [address] [facility] * MAGNESIUM (03/27/2019 11:15 AM CDT) Only the most recent of 3 results within the time period is included. MAGNESIUM 1.9 1.7 - 2.4 mg/dL [facility] Specimen Blood - ARM, LEFT Performing Organization Address [facility] Phone Number [facility] CLIA: [id number], [address] [place] [address] [facility] * CREATINE KINASE (03/27/2019 11:15 AM CDT) CK 84 33 - 194 U/L [facility] Specimen Blood - ARM, LEFT Performing Organization Address [facility] Phone Number [facility] CLIA: [id number], [address] [place] [address] [facility] * PHOSPHORUS (03/27/2019 11:15 AM CDT) Only the most recent of 2 results within the time period is included. PHOSPHORUS 4.0 2.5 - 5.0 mg/dL [facility] Specimen Blood - ARM, LEFT Performing Organization Address [facility] Phone Number [facility] CLIA: [id number], [address] [place] [address] [facility] * EKG-12 LEAD (03/27/2019 11:10 AM CDT) Specimen Performing Organization Address City/[facility] Phone Number [facility] * EKG-12 LEAD ROUTINE (03/27/2019 10:37 AM CDT) Narrative Performed At Agata Erazo FNP 03/27/2019 3:04 PM EKG-12 LEAD ROUTINE Date/Time: 03/27/2019 12:26 PM Performed by: Agata Erazo FNP Authorized by: Agata Erazo FNP ECG reviewed by ED Physician in the absence of a weekend receptionist: yes Previous ECG: Previous ECG: Compared to [...] (03/18/2019 10:45 AM CDT) AMPHET Negative Negative [facility] SERVICES-[facility] Cocaine Negative Negative [facility] Metabolite SERVICES-[facility] OPIATES Negative Negative [facility] SERVICES-[facility] THC Negative Negative [facility] SERVICES-[facility] Specimen Urine - URINE, CLEAN CATCH Narrative Performed At Urine Drug Cutoff Ranges [facility] Amphetamine: 1,000 ng/mL [facility] Cocaine: 150 ng/mL [facility]AMP[facility] Opiates: 300 ng/mL Cannabinoids: 50 ng/mL The results are to be used only for medical (i.e., treatment) purposes. Unconfirmed screening results must not be used for non-medical purposes (e.g., employment testing, legal testing). Performing Organization Address City/State/Zipcode Phone Number [facility] CLIA: [id number], [address] [place] [address] [facility] * EKG-12 LEAD (03/18/2019 10:42 AM CDT) [...] with the above report. Performing Organization Address [facility] Phone Number PACS/VR/DOSE * EXTRA TUBE DK. GREEN (03/18/2019 10:13 AM CDT) Specimen Blood Performing Organization Address [facility] Phone Number [facility] CLIA: [id number], [address] [place] [address] [facility] * EXTRA TUBE URINE CULTURE (03/18/2019 10:13 AM CDT) Specimen Urine - URINE, CLEAN CATCH Performing Organization Address [facility] Phone Number [facility] CLIA: [id number], [address] [place] [address] [facility] * aPTT (03/18/2019 10:13 AM CDT) APTT Patient 32 26 - 36 Seconds [facility] Specimen Blood - VENOUS Performing Organization Address [facility] Phone Number [facility] CLIA: [id number], [address] [place] [address] [facility] * Prothrombin Time (PT) / INR (03/18/2019 10:13 AM CDT) PROTIME PATIENT 11.4 10.1 - 12.6 Seconds [facility] INR 1.0Comment: Normal INR <1.1; [facility] Warfarin Therapeutic range 2.0 [facility] to 3.0 or 2.5 to 3.5, [facility] depending upon the indications. Specimen Blood - VENOUS Performing Organization Address [facility] Phone Number [facility] CLIA: [id number], [address] [place] [address] [facility] [place] * Ethanol Level (03/18/2019 10:13 AM CDT) ALCOHOL <10 mg/dL [facility] Specimen Blood - VENOUS Narrative Performed At Toxic Greater than or equal to 80 mg/dL. [facility] NOTE: Whole blood values are approximately 10% to 15% lower than serum and [facility] plasma. CAMPUS Performing Organization Address [facility] Phone Number [facility] CLIA: [id number], [address] [place] [address] [facility] [place] * HOSPITAL ADMISSION (03/18/2019 12:01 AM CDT) Only the most recent of 2 results within the time period is included. Specimen Performing Organization Address [facility] Phone Number HIM * REFERRAL- REQUEST/RESPONSE (03/07/2019 12:01 AM CDT) Specimen Performing Organization Address City/[facility]/Zipcode Phone Number HIM * PROTEIN CREAT RATIO URINE RANDOM (03/01/2019 4:34 PM CDT) T. PROT U 7 mg/dL [facility] CREAT U 102.0 mg/dL [facility] Protein/Creatin 0.1 0.0 - 2.0 [facility] ine Ratio Urine [facility] Specimen Urine - URINE, CLEAN CATCH Performing Organization Address [facility] Phone Number [facility] CLIA: [id number], [address] [place] [address] [facility] * CBC W/NO DIFF (03/01/2019 3:36 PM CDT) WBC 6.21 4.30 - 11.10 [facility] 10*3/L [facility] RBC 5.05 3.93 - 5.25 10*6/L [facility] HGB 14.2 11.6 - 15.0 g/dL [facility] HCT 44.0 35.7 - 45.2 % [facility] MCH 28.1 25.9 - 32.8 pg [facility] MCV 87.1 80.6 - 95.5 fL [facility] MCHC 32.3 31.6 - 35.1 g/dL [facility] PLT 207 166 - 358 10*3/L [facility] MPV 10.5 9.5 - 12.9 fL [facility] RDW-CV 13.9 12.0 - 15.5 % [facility] RDW-SD 44.2 39.0 - 49.9 fL [facility] NRBC x10^3 <0.01 10*3/L [facility] NRBC/100 WBC 0.0 0.0 - 10.0 /100 WBCs [facility] IPF % 3.8Comment: Platelet count 1.3 - 7.7 % [facility] measured by fluorescence [facility] method. [facility] Specimen Blood Performing Organization Address City/State/Zipcode Phone Number [facility] CLIA: [id number], [address] [place] [address] [facility] * [facility] PATIENT FINANCIAL POLICY (03/01/2019 1:05 PM [...] Number PACS * [facility] - [facility] (02/15/2019 12:01 AM CDT) Specimen Performing Organization Address City/State/Zipcode Phone Number HIM * PULMONARY FUNCTION TEST (RESULTS) (02/10/2019 11:14 AM CDT) Specimen Performing Organization Address City/State/Zipcode Phone Number PFT from Last 3 Months Insurance Type Payer Benefit Subscriber ID Effective Phone Address Plan / Dates Group HMO HIM [facility] [id number] 2019-P [phone] [address] [employer] [facility] [id number] [place] [address]
--- OUTSIDE RECORDS SUMMARY | 2019-06-09 13:32 | XMS REPORT | Clinical Summary ---
Author Author [facility] - Health Organization [facility] - Health Address Unknown Phone Unavailable Care Team Providers Care Race Car Driver Name Role Phone Fabien Fernandes MD Unavailable [...] Rash Medium 09/15/2017 Nitrofurantoin Rash 01/27/2018 Other [place]-3s Anaphylaxis 01/27/2018 States it would be fatal [...] bedtime. Active triamcinolone 55 mcg Use 1 [place] 1 Bottle 1 nasal inhalerIndications: in each 9 Viral URI with cough, nostril 2 Nasal sinus congestion (two) times daily. Active LISINOPRIL 5 mg TAKE 1 TABLET 30 tablet 1 tabletIndications: BY MOUTH 9 Essential hypertension EVERY DAY Active ketorolac 10 mg Take 1 tablet [...] per tabletIndications: (two) times Recurrent UTI daily. Active SERTraline 25 mg Take one 60 tablet 1 tabletIndications: tablet by 9 Psychogenic nonepileptic mouth daily seizure Active mirtazapine 15 mg Take 1 tablet 30 tablet 1 tabletIndications: by mouth at 9 Psychogenic nonepileptic bedtime. seizure Active mirtazapine 7.5 mg Take 1 tablet 30 tablet 1 tabletIndications: by mouth at 9 Psychogenic nonepileptic bedtime. seizure, Trauma and stressor-related disorder Status Hospital, Clinic, or Ordered Dose Route [...] Overview: Added automatically from request for surgery [id number] 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/12/2019 Overview: Added automatically from request for surgery [id number] Obesity (BMI 30-39.9) 12/16/2018 Recurrent UTI 05/17/2018 [...] Overview: Added automatically from request for surgery [id number] Encounters Care Team Description Date Type Specialty Ciara Merrill, NICOLE Recurrent UTI (Primary Dx); Right flank pain 05/04/2019 Office Visit Urology Eleno Mcnamara MD Rx Concern/Question (Medication) 05/03/2019 Telephone Obstetrics & Gynecology Mauricio Yip MD Monitor, Clc Holter 05/02/2019 Hospital Heart Station Encounter Doctor Unassigned, [place] 05/02/2019 Orders Only Eleno Mcnamara MD Recurrent UTI (urinary tract infection) (Primary Dx); Pain pelvic 05/01/2019 Office Visit Obstetrics & Gynecology Emir, Belinda Rosa, CERTIFIED MASTER SAFE TECHNICIAN Psychogenic nonepileptic seizure (Primary Dx) 04/29/2019 Emergency Emergency Medicine Gerber Ni MD Nurse, [facility] Chronic interstitial cystitis (Primary Dx) 04/26/2019 Nurse Visit Obstetrics & Gynecology Mauricio Yip MD 1, Clc Echo Room 1, [facility] General Practitioner Palpitations 04/25/2019 Hospital Echocardiograph Encounter Gerber Ni MD Nurse, [facility] Chronic interstitial cystitis (Primary Dx) [...] Refill Internal Medicine Gerber Ni MD Nurse, [facility] Chronic interstitial cystitis (Primary Dx) [...] Immunology: Internal Medicine Gerber Ni MD Nurse, [facility] Chronic interstitial cystitis (Primary Dx) [...] Office Visit Obstetrics & Gynecology Doctor Unassigned, [place] 03/24/2019 Orders Only Charlotte Mijares RN Transition Of Care 03/22/2019 Transition of Case Management Care Giuliano Edwards DO Garg, Parul, MD Seizure 03/18/2019 Emergency Medicine - Inpatient only - 03/21/2019 Leena Bañuelos DO Medical Records 03/15/2019 Telephone Internal IsabellaMarvin Oconnor MD Lab Results 03/15/2019 Telephone Internal IsabellaMarvin Oconnor MD Mixed incontinence urge and stress (Primary Dx); Bladder pain 03/13/2019 Office Visit Internal Medicine Zoila Rodas AGNP Notification 03/09/2019 Telephone Nephrology Zoila Rodas AGNP Assessment; Prescription; Allergic reaction 03/08/2019 Telephone Nephrology Sukh Harris MD Refill Request 03/06/2019 Refill Pain Medicine Leticia Handy MD Refill Request 03/05/2019 Refill Internal Medicine Zoila Rodas AGNP Vtc-Lab Hypertension, unspecified type 03/01/2019 [facility] Phlebotomy Visit Zoila Rodas AGNP Hypertension, unspecified type (Primary Dx) 03/01/2019 Office Visit Nephrology Doctor Unassigned, [place] 03/01/2019 Orders Only Lidya Patel MD Refill [...] radiculopathy 02/15/2019 Hospital Surgery Encounter Doctor Unassigned, [place] 02/15/2019 Orders Only Isak Butt MD Forms 02/15/2019 Telephone Internal Medicine Dieter Zhou MD Test, Vtc Pulmonary Function Dyspnea on exertion 02/10/2019 Avid Editor Pulmonary Function Visit Technologist Dieter Zhou MD [...] Signs Reading Time Taken Comments Vital Sign 127/78 05/11/2019 1:33 PM FINANCIAL ADMINISTRATIVE ASSISTANT Blood Pressure 92 05/11/2019 1:33 PM FINANCIAL ADMINISTRATIVE ASSISTANT Pulse 37 C (98.6 F) 05/04/2019 9:57 AM FINANCIAL ADMINISTRATIVE ASSISTANT Temperature 18 05/11/2019 1:33 PM FINANCIAL ADMINISTRATIVE ASSISTANT Respiratory Rate 94% 05/04/2019 9:57 AM FINANCIAL ADMINISTRATIVE ASSISTANT Oxygen Saturation - - Inhaled Oxygen Concentration 83.9 kg (185 lb) 05/11/2019 1:33 PM FINANCIAL ADMINISTRATIVE ASSISTANT Weight 154.9 cm (5' 1") 05/11/2019 1:33 PM FINANCIAL ADMINISTRATIVE ASSISTANT Height 34.96 05/11/2019 1:33 PM FINANCIAL ADMINISTRATIVE ASSISTANT Body Mass Index Plan of Treatment Care Team Description Date Type Specialty Ciara Merrill, CERTIFIED MASTER SAFE TECHNICIAN [address] [place] [address] [phone] 05/15/2019 Appointment Radiology Dieter Zhou MD [address] [facility] [id number] [place] [phone] 07/05/2019 Office Visit Pulmonary Disease Marvin Oconnor MD [address] [place] [address] [place] [address] [phone] 07/12/2019 Office Visit Internal Medicine Sukh Harris MD [address] [facility] [id number] [place], [place] [id number] 07/13/2019 Office Visit Pain Medicine Boom Santiago MD [address] [place] [address]. [place] [address] 07/20/2019 Office Visit Cardiology Marvin Oconnor MD [address] [place] [address] [place] [address] [phone] 08/07/2019 Office Visit Internal IsabellaMarvin Oconnor MD [address] [place] [address] [place] [address] [phone] 08/21/2019 Office Visit Internal Medicine Zoila Rodas AGNP [address] [place] [address] [phone] 08/30/2019 Office Visit Nephrology Health Maintenance Due [...] Routine 05/02/2019 DIAGNOSIS AND TREATMENT 9:01 AM FINANCIAL ADMINISTRATIVE ASSISTANT ASSIGNMENT OF BENEFITS Routine 05/02/2019 9:00 AM FINANCIAL ADMINISTRATIVE ASSISTANT URINE CULTURE Routine 05/01/2019 Recurrent UTI (urinary 4:25 PM FINANCIAL ADMINISTRATIVE ASSISTANT tract infection) Pain pelvic CYTO URINE Routine 05/01/2019 Recurrent UTI (urinary 4:22 PM FINANCIAL ADMINISTRATIVE ASSISTANT tract infection) Pain pelvic EKG-12 LEAD Routine 04/29/2019 3:32 PM FINANCIAL ADMINISTRATIVE ASSISTANT EMERGENCY SERVICES Routine 04/29/2019 AGREEMENTS AND 12:01 AM FINANCIAL ADMINISTRATIVE ASSISTANT AUTHORIZATIONS ECHO ROUTINE W/DOPPLER Routine 04/25/2019 Palpitations COLOR 1:58 PM FINANCIAL ADMINISTRATIVE ASSISTANT FLU VACC ([id number]), 6+ Routine 04/17/2019 Flu vaccine need MONTHS, IM, QUAD 8:39 AM CDT COMP. METABOLIC PANEL STAT 04/11/2019 Chest pain, unspecified (54026) 2:01 PM CDT type EKG-12 LEAD Routine [...] AUTHORIZATION TO RELEASE Routine 04/07/2019 PHI TO [facility] 12:01 AM CDT AUTHORIZATION FOR RELEASE [...] HEPATIC FUNCTION PANEL STAT 03/27/2019 Seizure-like activity (14187) (ALB,T.PRO,BILI 11:15 AM CDT T,BU/BC,ALT,AST,ALK PHOS) BASIC [...] CDT HEPATIC FUNCTION PANEL STAT 03/18/2019 Seizure ([id number]) (ALB,T.PRO,BILI 10:13 AM CDT T,BU/BC,ALT,AST,ALK PHOS) BASIC [...] 03/01/2019 Hypertension, unspecified 3:36 PM CDT type [facility] PATIENT FINANCIAL Routine 03/01/2019 POLICY [...] FOR DIAGNOSIS AND TREATMENT (05/02/2019 9:01 AM FINANCIAL ADMINISTRATIVE ASSISTANT) Only the most recent of 2 results within the time period is included. Specimen Performing Organization Address City/[facility] Phone Number HIM * ASSIGNMENT OF BENEFITS (05/02/2019 9:00 AM FINANCIAL ADMINISTRATIVE ASSISTANT) Only the most recent of 2 results within the time period is included. Specimen Performing Organization Address City/[facility] Phone Number HIM * URINE CULTURE (05/01/2019 4:25 PM FINANCIAL ADMINISTRATIVE ASSISTANT) Only the most recent of 3 results within the time period is included. URINE CULTURE >100,000 CFU/mL Citrobacter [facility] LABORATORY freundii SERVICES Specimen Urine - [...] pyelonephritis or systemic disease. Performing Organization Address City/State/[facility] Hospitalcode Phone Number [facility] LABORATORY SERVICES CLIA: [id number], [address] [place] [address] [address] [facility] * CYTO URINE (05/01/2019 4:22 PM FINANCIAL ADMINISTRATIVE ASSISTANT) Case Report Non-Gynecologic Cytology [facility]ORATORY SERVICES Case: [id number] Authorizing Provider: Eleno Mcnamara MD Collected: 05/01/2019 [id number] Ordering Location: [facility] Received: 05/01/2019 1628 [facility] Pathologist: Ellen Baer MD Specimen: URINE, CLEAN CATCH Final Diagnosis URINE, VOIDED: [facility]OR[facility]ORY Electronically - NEGATIVE FOR MALIGNANCY (SEE SERVICES signed by Keyur, COMMENT) Ellen Louie MD I have personally reviewed all on 05/03/2019 at specimens/slides and agree 1:04 PM with all statements made by residents, fellows or pathologist assistants whose name(s) may appear on this report. Final Diagnosis Few benign urothelial cells, [facility] Comment admixed with squamous SERVICES epithelial cells are seen. No malignant cells identified. Clinical bladder pain [facility] LABORAT[facility] Information SERVICES Gross A1. URINE, VOIDED [facility] LABORATORY Description Received is 30 cc's of urine SERVICES in 15 cc's PreservCyt preservative Prepared 2 slides (Papanicolaou stained: 1 cytospin preparation and 1 Thinprep preparation) Embedded Images [facility] LABORATORY SERVICES Specimen Urine - URINE, CLEAN CATCH Performing Organization Address City/State/Zipcode Phone Number [facility]ORATORY SERVICES CLIA: [id number], [address] [place] [address] * EKG-12 LEAD (04/29/2019 3:32 PM FINANCIAL ADMINISTRATIVE ASSISTANT) Specimen Performing Organization Address City/State/Zipcode Phone Number [facility] * EMERGENCY SERVICES AGREEMENTS AND AUTHORIZATIONS (04/29/2019 12:01 AM FINANCIAL ADMINISTRATIVE ASSISTANT) Only the most recent of 3 results within the time period is included. Specimen Performing Organization Address City/[facility]/Zipcode Phone Number HIM * ECHO ROUTINE W/DOPPLER COLOR (04/25/2019 1:58 PM FINANCIAL ADMINISTRATIVE ASSISTANT) Specimen Performing Organization Address City/[facility]/Zipcode Phone Number ECHO * COMP. METABOLIC PANEL (68855) (04/11/2019 2:01 PM CDT) NA 138 135 - 145 mmol/L [facility] LABORATORY SERVICES K 3.7Comment: Slight hemolysis 3.5 - 5.0 mmol/L [facility]ORAT[facility] SERVICES CL 102 98 - 108 mmol/L [facility] SERVICES CO2 TOTAL 29 23 - 31 mmol/L [facility] SERVICES AGAP 7 2 - 16 [facility] SERVICES BUN 13Comment: Slight hemolysis 7 - 23 mg/dL [facility] SERVICES GLUCOSE 99 70 - 110 mg/dL [facility] SERVICES CREATININE 0.51 0.50 - 1.04 mg/dL [facility] SERVICES TOTAL BILI 0.4 0.1 - 1.1 mg/dL [facility] CALCIUM 9.4 8.6 - 10.6 mg/dL [facility] T PROTEIN 7.1 6.3 - 8.2 g/dL [facility] ALBUMIN 4.3 3.5 - 5.0 g/dL [facility] ALK PHOS 68Comment: Slight hemolysis 34 - 122 U/L [facility] ALTv 31 5 - 35 U/L [facility] AST(SGOT) 39Comment: Slight hemolysis 13 - 40 U/L [facility] eGFR 121.8 mL/min/1.73m2 [facility] LABORATORY Calculation SERVICES (Non-) eGFR 147.6 mL/min/1.73m2 [facility]ORATORY Calculation SERVICES () Specimen Blood - VENOUS Narrative Performed At Association of Glomerular Filtration Rate (GFR) and Staging of Kidney Disease* [facility] + + + + SERVICES | [...] Number [facility] SERVICES CLIA: [id number], [address] [place] [address] * EKG-12 LEAD (04/11/2019 1:49 PM CDT) Specimen Performing Organization Address City/State/Zipcode Phone Number [facility] * CBC WITH DIFFERENTIAL (04/11/2019 1:27 PM CDT) Only the most recent of 4 results within the time period is included. WBC 8.40 4.30 - 11.10 [facility] 10*3/L SERVICES RBC 5.20 3.93 - 5.25 10*6/L [facility] HGB 14.8 11.6 - 15.0 g/dL [facility] HCT 44.2 35.7 - 45.2 % [facility] MCV 85.0 80.6 - 95.5 fL [facility] SERVICES MCH 28.5 25.9 - 32.8 pg [facility] MCHC 33.5 31.6 - 35.1 g/dL [facility]ORATORY SERVICES RDW-SD 40.3 39.0 - 49.9 fL [facility] RDW-CV 13.0 12.0 - 15.5 % [facility] PLT 191 166 - 358 10*3/L [facility] MPV 11.2 9.5 - 12.9 fL [facility]ATORY SERVICES NRBC/100 WBC 0.0 0.0 - [...] VENOUS Performing Organization Address City/State/Zipcode Phone Number [facility]ATORY SERVICES CLIA: [id number], [address] [place] [address] * TROPONIN I (04/11/2019 1:27 PM CDT) Only the most recent of 4 results within the time period is included. TROPONIN I 0.008 <=0.034 ng/mL [facility]ORATORY SERVICES Specimen Blood - VENOUS Narrative Performed At Equal or Less than 0.034 ng/ml---Normal [facility] Note: Cardiac troponin begins [...] biotin. Performing Organization Address City/State/Zipcode Phone Number [facility]ATORY SERVICES CLIA: [id number], [address] [place] [address] [address] [facility] * PSYCHIATRY CLINIC PATIENT INFORMATION (04/07/2019 12:01 AM CDT) Specimen Performing Organization Address City/State/Zipcode Phone Number [facility] * AUTHORIZATION TO RELEASE PHI TO [facility] (04/07/2019 12:01 AM CDT) Specimen Performing Organization Address City/State/Zipcode Phone Number [facility] * AUTHORIZATION FOR RELEASE OF PHI (04/07/2019 12:01 AM CDT) Specimen Performing Organization Address City/State/Zipcode Phone Number [facility] * XR CHEST 1 VW [...] normal. No acute bony abnormality. Procedure Note Ut, Radiant Results Inft User - 03/27/2019 5:52 [...] with the above report. Performing Organization Address City/[facility]/Zipcode Phone Number PACS/VR/DOSE * N-TERMINAL PRO-BNP (03/27/2019 11:15 AM CDT) Only the most recent of 2 results within the time period is included. NT-proBNP 57 <=125 pg/mL [facility] LABORATORY [facility] Specimen Blood - ARM, LEFT Narrative Performed At [facility] has been reported to cause a negative bias, interpret results relative to [facility] LABORATORY patient's use of biotin. [facility] Performing Organization Address City/[facility]/Zipcode Phone Number [facility]ORY CLIA: [id number], [address] [place] [address] [facility] * Urinalysis (03/27/2019 11:15 AM CDT) Only the most recent of 4 results within the time period is included. APPEARANCE Hazy (A) Clear [facility] COLOR Yellow Yellow [facility] PH 5.0 4.8 - 8.0 [facility] SP GRAVITY 1.016 1.003 - 1.030 [facility] GLU U QUAL Normal Normal [facility] BLOOD Negative Negative [facility] KETONES Negative Negative [facility] PROTEIN Negative Negative [facility] UROBILIN Normal Normal [facility] BILIRUBIN Negative Negative [facility] NITRITE Negative Negative [facility] LEUK MICHAEL 75/uL (A) Negative [facility] RBC/HPF 1 0 - 3 HPF [facility] WBC/HPF 5 0 - 5 HPF [facility] BACTERIA Negative Negative [facility] SQ EPITH 5 (H) <=2 HPF [facility] Specimen Urine - URINE, CLEAN CATCH Performing Organization Address City/State/Zipcode Phone Number [facility] CLIA: [id number], [address] [place] [address] [facility] * Basic Metabolic Panel (NA, K, CL, CO2, GLUCOSE, BUN, CREATININE, CA) (03/27/2019 11:15 AM CDT) Only the most recent of 4 results within the time period is included. NA 142 135 - 145 mmol/L [facility] K 3.6 3.5 - 5.0 mmol/L [facility] CL 102 98 - 108 mmol/L [facility] CO2 TOTAL 30 23 - 31 mmol/L [facility] AGAP 10 2 - 16 [facility] BUN 20 7 - 23 mg/dL [facility] GLUCOSE 104 70 - 110 mg/dL [facility] CREATININE 0.74 0.50 - 1.04 mg/dL [facility] CALCIUM 9.9 8.6 - 10.6 mg/dL [facility] eGFR 79.3 mL/min/1.73m2 [facility] LAB[facility]ATORY Calculation [facility] ([facility]) eGFR 96.1 mL/min/1.73m2 [facility] Calculation [facility]) Specimen Blood - ARM, LEFT Narrative Performed At Association of Glomerular Filtration Rate (GFR) and Staging of Kidney Disease* [facility] + + + + [facility] | GFR (mL/min/1.73 m2) | With [...] [facility] CLIA: [id number], [address] [place] [address] [facility] * Hepatic Function Panel (ALB, T.PRO, BILI T, BU/BC, ALT, AST, ALK PHOS) (03/27/2019 11:15 AM CDT) Only the most recent of 2 results within the time period is included. TOTAL BILI 0.3 0.1 - 1.1 mg/dL [facility] BILI UNCON 0.2 0.1 - 1.1 mg/dL [facility] BILI CONJ 0.0 0.0 - 0.3 mg/dL [facility] T PROTEIN 7.2 6.3 - 8.2 g/dL [facility] ALBUMIN 4.4 3.5 - 5.0 g/dL [facility] ALK PHOS 71 34 - 122 U/L [facility] ALT(SGPT) 37 9 - 51 U/L [facility] AST(SGOT) 25 13 - 40 U/L [facility] Specimen Blood - ARM, LEFT Performing Organization Address [facility] Phone Number [facility] CLIA: [id number], [address] [place] [address] [facility] * MAGNESIUM (03/27/2019 11:15 AM CDT) Only the most recent of 3 results within the time period is included. MAGNESIUM 1.9 1.7 - 2.4 mg/dL [facility] Specimen Blood - ARM, LEFT Performing Organization Address [facility] Phone Number [facility] CLIA: [id number], [address] [place] [address] [facility] * CREATINE KINASE (03/27/2019 11:15 AM CDT) CK 84 33 - 194 U/L [facility] Specimen Blood - ARM, LEFT Performing Organization Address [facility] Phone Number [facility] CLIA: [id number], [address] [place] [address] [facility] * PHOSPHORUS (03/27/2019 11:15 AM CDT) Only the most recent of 2 results within the time period is included. PHOSPHORUS 4.0 2.5 - 5.0 mg/dL [facility] Specimen Blood - ARM, LEFT Performing Organization Address [facility] Phone Number [facility] CLIA: [id number], [address] [place] [address] [facility] * EKG-12 LEAD (03/27/2019 11:10 AM CDT) Specimen Performing Organization Address City/[facility] Phone Number [facility] * EKG-12 LEAD ROUTINE (03/27/2019 10:37 AM CDT) Narrative Performed At Agata Erazo FNP 03/27/2019 3:04 PM EKG-12 LEAD ROUTINE Date/Time: 03/27/2019 12:26 PM Performed by: Agata Erazo FNP Authorized by: Agata Erazo FNP ECG reviewed by ED Physician in the absence of a hand cooper helper: yes Previous ECG: Previous ECG: Compared to [...] 12:01 AM CDT) Specimen Performing Organization Address City/State/[facility] Phone Number HIM * Drug Screen ER (03/18/2019 10:45 AM CDT) AMPHET Negative Negative [facility] SERVICES-[facility] Cocaine Negative Negative [facility] Metabolite SERVICES-[facility] OPIATES Negative Negative [facility] SERVICES-[facility] THC Negative Negative [facility] SERVICES-[facility] Specimen Urine - URINE, CLEAN CATCH Narrative Performed At Urine Drug Cutoff Ranges [facility] Amphetamine: 1,000 ng/mL [facility] Cocaine: 150 ng/mL CAMPUS Opiates: 300 ng/mL Cannabinoids: 50 ng/mL The results are to be used only for medical (i.e., treatment) purposes. Unconfirmed screening results must not be used for non-medical purposes (e.g., employment testing, legal testing). Performing Organization Address City/State/[facility] Phone Number [facility] CLIA: [id number], [address] [place] [address] [facility] * EKG-12 LEAD (03/18/2019 10:42 AM [...] the skull base are intact. Procedure Note [facility], Radiant Results Inft User - 03/18/2019 10:35 [...] with the above report. Performing Organization Address City/[facility]code Phone Number PACS/VR/DOSE * EXTRA TUBE DK. GREEN (03/18/2019 10:13 AM CDT) Specimen Blood Performing Organization Address [facility] Phone Number [facility] CLIA: [id number], [address] [place] [address] [facility] * EXTRA TUBE URINE CULTURE (03/18/2019 10:13 AM CDT) Specimen Urine - URINE, CLEAN CATCH Performing Organization Address [facility] Phone Number [facility] CLIA: [id number], [address], [place] [address] [facility] * aPTT (03/18/2019 10:13 AM CDT) APTT Patient 32 26 - 36 Seconds [facility] Specimen Blood - VENOUS Performing Organization Address [facility] Phone Number [facility] CLIA: [id number], [address] [place], [place] [address] [facility] * Prothrombin Time (PT) / INR (03/18/2019 10:13 AM CDT) PROTIME PATIENT 11.4 10.1 - 12.6 Seconds [facility] INR 1.0Comment: Normal INR <1.1; [facility] Warfarin Therapeutic range 2.0 [facility] to 3.0 or 2.5 to 3.5, [facility] depending upon the indications. Specimen Blood - VENOUS Performing Organization Address [facility] Phone Number [facility] CLIA: [id number], [address] [place] [address] [facility] * Ethanol Level (03/18/2019 10:13 AM CDT) ALCOHOL <10 mg/dL [facility] Specimen Blood - VENOUS Narrative Performed At Toxic Greater than or equal to 80 mg/dL. [facility] NOTE: Whole blood values are approximately 10% to 15% lower than serum and [facility] plasma. CAMPUS Performing Organization Address City/State/Zipcode Phone Number [facility] CLIA: [id number], [address] [place] [address] [facility] * HOSPITAL ADMISSION (03/18/2019 12:01 AM CDT) Only the most recent of 2 results within the time period is included. Specimen Performing Organization Address City/[facility]/Zipcode Phone Number [facility] * REFERRAL- REQUEST/RESPONSE (03/07/2019 12:01 AM CDT) Specimen Performing Organization Address City/[facility]/Zipcode Phone Number [facility] * PROTEIN CREAT RATIO URINE RANDOM (03/01/2019 4:34 PM CDT) T. PROT U 7 mg/dL [facility] CREAT U 102.0 mg/dL [facility] Protein/Creatin 0.1 0.0 - 2.0 [facility] ine Ratio Urine [facility] Specimen Urine - URINE, CLEAN CATCH Performing Organization Address [facility] Phone Number [facility] CLIA: [id number], [address] [place] [address] [facility] * CBC W/NO DIFF (03/01/2019 3:36 PM CDT) WBC 6.21 4.30 - 11.10 [facility] 10*3/L [facility] RBC 5.05 3.93 - 5.25 10*6/L [facility] HGB 14.2 11.6 - 15.0 g/dL [facility] HCT 44.0 35.7 - 45.2 % [facility]ORAT[facility] MCH 28.1 25.9 - 32.8 pg [facility] MCV 87.1 80.6 - 95.5 fL [facility] MCHC 32.3 31.6 - 35.1 g/dL [facility] PLT 207 166 - 358 10*3/L [facility] MPV 10.5 9.5 - 12.9 fL [facility] RDW-CV 13.9 12.0 - 15.5 % [facility] RDW-SD 44.2 39.0 - 49.9 fL [facility] NRBC x10^3 <0.01 10*3/L [facility] NRBC/100 WBC 0.0 0.0 - 10.0 /100 WBCs [facility] IPF % 3.8Comment: Platelet count 1.3 - 7.7 % [facility] measured by fluorescence [facility] method. [facility] Specimen Blood Performing Organization Address City/State/Zipcode Phone Number [facility] CLIA: [id number], [address] [place] [address] [facility] * [facility] PATIENT FINANCIAL POLICY (03/01/2019 1:05 PM CDT) Specimen Performing Organization Address City/State/Zipcode Phone Number [facility] * NO SHOW OR MISSED APPOINTMENT POLICY ACKNOWLEDGEMENT (03/01/2019 1:04 PM CDT) Specimen Performing Organization Address City/State/Zipcode Phone Number [facility] * FL TIME OR (NON-REPORTABLE) (02/15/2019 1:50 PM CDT) Specimen Narrative Performed At These images do not require a Radiology diagnostic report. PACS Performing Organization Address City/State/Zipcode Phone Number PACS * DAY SURGERY - [facility] (02/15/2019 12:01 AM CDT) Specimen Performing Organization Address City/State/Zipcode Phone Number [facility] * PULMONARY FUNCTION TEST (RESULTS) (02/10/2019 11:14 AM CDT) Specimen Performing Organization Address City/State/Zipcode Phone Number PFT from Last 3 Months Insurance Type Payer Benefit Subscriber ID Effective Phone Address Plan / Dates Group [facility] [id number] 2019-P [phone] [facility] [employer] [facility] [id number] [place] [address]
--- OUTSIDE RECORDS SUMMARY | 2019-06-09 13:33 | XMS REPORT | Clinical Summary ---
Author Author [facility] - Health Organization [facility] - Health Address Unknown Phone Unavailable Care Team Providers Care Forepart Reducer Name Role Phone Fabien Fernandes MD Unavailable [...] Rash Medium 09/15/2017 Nitrofurantoin Rash 01/27/[address] Anaphylaxis 01/27/2018 States it would be fatal [...] bedtime. Active triamcinolone 55 mcg Use 1 [place] 1 Bottle 1 nasal inhalerIndications: in each [...] Overview: Added automatically from request for surgery [id number] 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/12/2019 Overview: Added automatically from request for surgery [id number] Obesity (BMI 30-39.9) 12/16/2018 Recurrent UTI 05/17/2018 [...] Overview: Added automatically from request for surgery [id number] Encounters Care Team Description Date Type Specialty Ciara Merrill, NICOLE Recurrent UTI (Primary Dx); Right flank pain 05/04/2019 Office Visit Urology Eleno Mcnamara MD Rx Concern/Question (Medication) 05/03/2019 Telephone Obstetrics & Gynecology Mauricio Yip MD Monitor, Clc Holter 05/02/2019 Hospital Heart Station Encounter Doctor Unassigned, [place] 05/02/2019 Orders Only Eleno Mcnamara MD Recurrent UTI (urinary tract infection) (Primary Dx); Pain pelvic 05/01/2019 Office Visit Obstetrics & Gynecology Emir, Belinda Rosa, TITLE MANAGER Psychogenic nonepileptic seizure (Primary Dx) 04/29/2019 Emergency Emergency Medicine Gerber Ni MD Nurse, [facility] Chronic interstitial cystitis (Primary Dx) 04/26/2019 Nurse Visit Obstetrics & Gynecology Mauricio Yip MD 1, Clc Echo Room 1, [facility] Hand Laminator Palpitations 04/25/2019 Hospital Echocardiograph Encounter Gerber Ni MD Nurse, [facility] Chronic interstitial cystitis (Primary Dx) [...] Refill Internal Medicine Gerber Ni MD Nurse, [facility] Chronic interstitial cystitis (Primary Dx) [...] Immunology: Internal Medicine Gerber Ni MD Nurse, [facility] Chronic interstitial cystitis (Primary Dx) [...] Office Visit Obstetrics & Gynecology Doctor Unassigned, [place] 03/24/2019 Orders Only Charlotte Mijares RN Transition Of Care 03/22/2019 Transition of Case Management Care Giuliano Edwards DO Garg, Parul, MD Seizure 03/18/2019 Emergency Medicine - Inpatient only - 03/21/2019 Leena Bañuelos DO Medical Records 03/15/2019 Telephone Internal SasserMarvin Oconnor MD Lab Results 03/15/2019 Telephone Internal SasserMarvin Oconnor MD Mixed incontinence urge and stress (Primary Dx); Bladder pain 03/13/2019 Office Visit Internal Medicine Zoila Rodas AGNP Notification 03/09/2019 Telephone Nephrology Zoila Rodas AGNP Assessment; Prescription; Allergic reaction 03/08/2019 Telephone Nephrology Sukh Harris MD Refill Request 03/06/2019 Refill Pain Medicine Leticia Handy MD Refill Request 03/05/2019 Refill Internal Medicine Zoila Rodas AGNP Vtc-Lab Hypertension, unspecified type 03/01/2019 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 Grader Phlebotomy Visit Zoila Rodas AGNP Hypertension, unspecified type (Primary Dx) 03/01/2019 Office Visit Nephrology Doctor Unassigned, [place] 03/01/2019 Orders Only Lidya Patel MD Refill Request 03/01/2019 Refill Nephrology aCrmel Gamez MD Assessment 02/17/2019 Telephone Surgery Leena Bañuelos DO Forms (wheel chair) 02/16/2019 Telephone Internal Medicine Isak Butt MD Forms 02/16/2019 Telephone Internal Medicine Esther Vickers MD Randle, Darlene, RN 02/15/2019 Anesthesia Surgery Event Sukh Harris MD RADIOFREQUENCY THERMOCOAGULATION 02/15/2019 Surgery Surgery Sukh Harris MD Spondylosis of lumbar region without myelopathy or radiculopathy 02/15/2019 Hospital Surgery Encounter Doctor Unassigned, [place] 02/15/2019 Orders Only Isak Butt MD Forms 02/15/2019 Telephone Internal Medicine Dieter Zhou MD Test, Vtc Pulmonary Function Dyspnea on exertion 02/10/2019 Poultry Grader Pulmonary Function Visit Technologist Dieter Zhou MD [...] Comments Vital Sign 127/78 05/11/2019 1:33 PM DIRECTOR PRINT Blood Pressure 92 05/11/2019 1:33 PM DIRECTOR PRINT Pulse 37 C (98.6 F) 05/04/2019 9:57 AM DIRECTOR PRINT Temperature 18 05/11/2019 1:33 PM DIRECTOR PRINT Respiratory Rate 94% 05/04/2019 9:57 AM DIRECTOR PRINT Oxygen Saturation - - Inhaled Oxygen Concentration 83.9 kg (185 lb) 05/11/2019 1:33 PM DIRECTOR PRINT Weight 154.9 cm (5' 1") 05/11/2019 1:33 PM DIRECTOR PRINT Height 34.96 05/11/2019 1:33 PM DIRECTOR PRINT Body Mass Index Plan of Treatment Care Team Description Date Type Specialty Ciara Merrill, TITLE MANAGER [address] [place] [address] [phone] 05/15/2019 Appointment Radiology Dieter Zhou MD [address] [facility] [id number] [place] [phone] 07/05/2019 Office Visit Pulmonary Disease Marvin Oconnor MD [address] [place] [address] [phone] 07/12/2019 Office Visit Internal Medicine Sukh Harris MD [address] [facility] [id number] [place], [place] [phone] 07/13/2019 Office Visit Pain Medicine Boom Santiago MD [address] [place] [address]. [place] [address] 07/20/2019 Office Visit Cardiology Marvin Oconnor MD [address] [place] [address] [phone] 08/07/2019 Office Visit Internal SasserMarvin Oconnor MD [address] [place] [place] [address] [phone] 08/21/2019 Office Visit Internal Medicine Zoila Rodas AGNP [address] [place] [address] [phone] 08/30/2019 Office Visit Nephrology Health Maintenance Due [...] Routine 05/02/2019 DIAGNOSIS AND TREATMENT 9:01 AM DIRECTOR PRINT ASSIGNMENT OF BENEFITS Routine 05/02/2019 9:00 AM DIRECTOR PRINT URINE CULTURE Routine 05/01/2019 Recurrent UTI (urinary 4:25 PM DIRECTOR PRINT tract infection) Pain pelvic CYTO URINE Routine 05/01/2019 Recurrent UTI (urinary 4:22 PM DIRECTOR PRINT tract infection) Pain pelvic EKG-12 LEAD Routine 04/29/2019 3:32 PM DIRECTOR PRINT EMERGENCY SERVICES Routine 04/29/2019 AGREEMENTS AND 12:01 AM DIRECTOR PRINT AUTHORIZATIONS ECHO ROUTINE W/DOPPLER Routine 04/25/2019 Palpitations COLOR 1:58 PM DIRECTOR PRINT FLU VACC ([id number]), 6+ Routine 04/17/2019 Flu vaccine need MONTHS, IM, QUAD 8:39 AM CDT COMP. METABOLIC PANEL STAT 04/11/2019 Chest pain, unspecified (11756) 2:01 PM CDT type EKG-12 LEAD Routine [...] AUTHORIZATION TO RELEASE Routine 04/07/2019 PHI TO [facility] 12:01 AM CDT AUTHORIZATION FOR RELEASE [...] HEPATIC FUNCTION PANEL STAT 03/27/2019 Seizure-like activity (79716) (ALB,T.PRO,BILI 11:15 AM CDT T,BU/BC,ALT,AST,ALK PHOS) BASIC [...] CDT HEPATIC FUNCTION PANEL STAT 03/18/2019 Seizure ([id number]) (ALB,T.PRO,BILI 10:13 AM CDT T,BU/BC,ALT,AST,ALK PHOS) BASIC [...] 03/01/2019 Hypertension, unspecified 3:36 PM CDT type [facility] PATIENT FINANCIAL Routine 03/01/2019 POLICY 1:05 [...] FOR DIAGNOSIS AND TREATMENT (05/02/2019 9:01 AM DIRECTOR PRINT) Only the most recent of 2 results within the time period is included. Specimen Performing Organization Address City/[facility] Hospital[facility] Phone Number HIM * ASSIGNMENT OF BENEFITS (05/02/2019 9:00 AM DIRECTOR PRINT) Only the most recent of 2 results within the time period is included. Specimen Performing Organization Address City/[facility] Phone Number HIM * URINE CULTURE (05/01/2019 4:25 PM DIRECTOR PRINT) Only the most recent of 3 results within the time period is included. URINE CULTURE >100,000 CFU/mL Citrobacter [facility] freundii SERVICES Specimen Urine - [...] pyelonephritis or systemic disease. Performing Organization Address City/State/[facility] Hospitalcode Phone Number [facility] SERVICES CLIA: [id number], [address] [place] [address] [facility] * CYTO URINE (05/01/2019 4:22 PM DIRECTOR PRINT) Case Report Non-Gynecologic Cytology [facility] SERVICES Case: [id number] Authorizing Provider: Eleno Mcnamara MD Collected: 05/01/2019 [id number] Ordering Location: [facility] Received: 05/01/2019 1628 [facility] Pathologist: Ellen Baer MD Specimen: URINE, CLEAN CATCH Final Diagnosis URINE, VOIDED: [facility] Electronically - NEGATIVE FOR MALIGNANCY (SEE SERVICES signed by Keyur, COMMENT) Ellen Louie MD I have personally reviewed all on 05/03/2019 at specimens/slides and agree 1:04 PM with all statements made by residents, fellows or pathologist assistants whose name(s) may appear on this report. Final Diagnosis Few benign urothelial cells, [facility] Comment admixed with squamous SERVICES epithelial cells are seen. No malignant cells identified. Clinical bladder pain [facility] Information SERVICES Gross A1. URINE, VOIDED [facility] Description Received is 30 cc's of urine SERVICES in 15 cc's PreservCyt preservative Prepared 2 slides (Papanicolaou stained: 1 cytospin preparation and 1 Thinprep preparation) Embedded Images [facility] SERVICES Specimen Urine - URINE, CLEAN CATCH Performing Organization Address City/State/Zipcode Phone Number [facility] SERVICES CLIA: [id number], [address] [place] [address] * EKG-12 LEAD (04/29/2019 3:32 PM DIRECTOR PRINT) Specimen Performing Organization Address City/State/Zipcode Phone Number [facility] * EMERGENCY SERVICES AGREEMENTS AND AUTHORIZATIONS (04/29/2019 12:01 AM DIRECTOR PRINT) Only the most recent of 3 results within the time period is included. Specimen Performing Organization Address City/[facility]/Zipcode Phone Number HIM * ECHO ROUTINE W/DOPPLER COLOR (04/25/2019 1:58 PM DIRECTOR PRINT) Specimen Performing Organization Address City/[facility]/Zipcode Phone Number ECHO * COMP. METABOLIC PANEL ([id number]) (04/11/2019 2:01 PM CDT) NA 138 135 - 145 mmol/L [facility] SERVICES K 3.7Comment: Slight hemolysis 3.5 - 5.0 mmol/L [facility] CL 102 98 - 108 mmol/L [facility] CO2 TOTAL 29 23 - 31 mmol/L [facility] SERVICES AGAP 7 2 - 16 [facility] BUN 13Comment: Slight hemolysis 7 - 23 mg/dL [facility] SERVICES GLUCOSE 99 70 - 110 mg/dL [facility] SERVICES CREATININE 0.51 0.50 - 1.04 mg/dL [facility] SERVICES TOTAL BILI 0.4 0.1 - 1.1 mg/dL [facility] CALCIUM 9.4 8.6 - 10.6 mg/dL [facility] T PROTEIN 7.1 6.3 - 8.2 g/dL [facility] ALBUMIN 4.3 3.5 - 5.0 g/dL [facility] ALK PHOS 68Comment: Slight hemolysis 34 - 122 U/L [facility] ALTv 31 5 - 35 U/L [facility] AST(SGOT) 39Comment: Slight hemolysis 13 - 40 U/L [facility] eGFR 121.8 mL/min/1.73m2 [facility] Calculation SERVICES (Non-) eGFR 147.6 mL/min/1.73m2 [facility] Calculation SERVICES () Specimen Blood - VENOUS Narrative Performed At Association of Glomerular Filtration Rate (GFR) and Staging of Kidney Disease* [facility] + + + + SERVICES | [...] tests). Performing Organization Address City/State/Zipcode Phone Number [facility] CLIA: [id number], [address] [place] [address] * EKG-12 LEAD (04/11/2019 1:49 PM [...] SERVICES MCV 85.0 80.6 - 95.5 fL [facility] SERVICES MCH 28.5 25.9 - 32.8 pg [facility] MCHC 33.5 31.6 - 35.1 g/dL [facility] RDW-SD 40.3 39.0 - 49.9 fL [facility] RDW-CV 13.0 12.0 - 15.5 % [facility] PLT 191 166 - 358 10*3/L [facility] MPV 11.2 9.5 - 12.9 fL [facility] NRBC/100 WBC 0.0 0.0 - [...] VENOUS Performing Organization Address City/State/Zipcode Phone Number [facility] CLIA: [id number], [address] [place] [address] * TROPONIN I (04/11/2019 1:27 PM CDT) Only the most recent of 4 results within the time period is included. TROPONIN I 0.008 <=0.034 ng/mL [facility] SERVICES Specimen Blood - VENOUS Narrative Performed At Equal or Less than 0.034 ng/ml---Normal [facility] Note: Cardiac troponin begins to [...] biotin. Performing Organization Address City/State/Zipcode Phone Number [facility] CLIA: [id number], [address] [place] [address] [facility] * PSYCHIATRY CLINIC PATIENT INFORMATION (04/07/2019 12:01 AM CDT) Specimen Performing Organization Address City/State/Zipcode Phone Number [facility] * AUTHORIZATION TO RELEASE PHI TO [facility] (04/07/2019 12:01 AM CDT) Specimen Performing Organization Address City/State/Zipcode Phone Number [facility] * AUTHORIZATION FOR RELEASE OF PHI (04/07/2019 12:01 AM CDT) Specimen Performing Organization Address City/State/Zipcode Phone Number [facility] * XR CHEST 1 VW (03/27/2019 [...] with the above report. Performing Organization Address City/[facility]/Zipcode Phone Number PACS/VR/DOSE * N-TERMINAL PRO-BNP (03/27/2019 11:15 AM CDT) Only the most recent of 2 results within the time period is included. NT-proBNP 57 <=125 pg/mL [facility] Specimen Blood - ARM, LEFT Narrative Performed At [facility] has been reported to cause a negative bias, interpret results relative to [facility] patient's use of biotin. [facility] Performing Organization Address City/[facility]/Zipcode Phone Number [facility] CLIA: [id number], [address] [place] [address] [facility] * Urinalysis (03/27/2019 11:15 AM CDT) Only the most recent of 4 results within the time period is included. APPEARANCE Hazy (A) Clear [facility] COLOR Yellow Yellow [facility] PH 5.0 4.8 - 8.0 [facility] SP GRAVITY 1.016 1.003 - 1.030 [facility] GLU U QUAL Normal Normal [facility] BLOOD Negative Negative [facility] KETONES Negative Negative [facility] PROTEIN Negative Negative [facility] UROBILIN Normal Normal [facility] BILIRUBIN Negative Negative [facility] NITRITE Negative Negative [facility] LEUK MICHAEL 75/uL (A) Negative [facility] RBC/HPF 1 0 - 3 HPF [facility] WBC/HPF 5 0 - 5 HPF [facility] BACTERIA Negative Negative [facility] SQ EPITH 5 (H) <=2 HPF [facility] Specimen Urine - URINE, CLEAN CATCH Performing Organization Address City/State/Zipcode Phone Number [facility] CLIA: [id number], [address] [place] [address] [facility] * Basic Metabolic Panel (NA, K, CL, CO2, GLUCOSE, BUN, CREATININE, CA) (03/27/2019 11:15 AM CDT) Only the most recent of 4 results within the time period is included. NA 142 135 - 145 mmol/L [facility] K 3.6 3.5 - 5.0 mmol/L [facility] CL 102 98 - 108 mmol/L [facility] CO2 TOTAL 30 23 - 31 mmol/L [facility] AGAP 10 2 - 16 [facility] BUN 20 7 - 23 mg/dL [facility] GLUCOSE 104 70 - 110 mg/dL [facility] CREATININE 0.74 0.50 - 1.04 mg/dL [facility] CALCIUM 9.9 8.6 - 10.6 mg/dL [facility] eGFR 79.3 mL/min/1.73m2 [facility] Calculation [facility] (Non-[facility] Citizen Of [place]) eGFR 96.1 mL/min/1.73m2 [facility] Calculation [facility] ([facility] Citizen Of [place]) Specimen Blood - ARM, LEFT Narrative Performed At Association of Glomerular Filtration Rate (GFR) and Staging of Kidney Disease* [facility] + + + + [facility] | GFR (mL/min/1.73 m2) | With [...] tests). Performing Organization Address City/State/Zipcode Phone Number [facility] CLIA: [id number], [address] [place] [address] [facility] * Hepatic Function Panel (ALB, T.PRO, BILI T, BU/BC, ALT, AST, ALK PHOS) (03/27/2019 11:15 AM CDT) Only the most recent of 2 results within the time period is included. TOTAL BILI 0.3 0.1 - 1.1 mg/dL [facility] BILI UNCON 0.2 0.1 - 1.1 mg/dL [facility] BILI CONJ 0.0 0.0 - 0.3 mg/dL [facility] T PROTEIN 7.2 6.3 - 8.2 g/dL [facility] ALBUMIN 4.4 3.5 - 5.0 g/dL [facility] ALK PHOS 71 34 - 122 U/L [facility] ALT(SGPT) 37 9 - 51 U/L [facility] AST(SGOT) 25 13 - 40 U/L [facility] Specimen Blood - ARM, LEFT Performing Organization Address [facility] Phone Number [facility] CLIA: [id number], [address] [place] [address] [facility] * MAGNESIUM (03/27/2019 11:15 AM CDT) Only the most recent of 3 results within the time period is included. MAGNESIUM 1.9 1.7 - 2.4 mg/dL [facility] Specimen Blood - ARM, LEFT Performing Organization Address [facility] Phone Number [facility] CLIA: [id number], [address] [place] [address] [facility] * CREATINE KINASE (03/27/2019 11:15 AM CDT) CK 84 33 - 194 U/L [facility] Specimen Blood - ARM, LEFT Performing Organization Address [facility] Phone Number [facility] CLIA: [id number], [address] [place] [address] [facility] * PHOSPHORUS (03/27/2019 11:15 AM CDT) Only the most recent of 2 results within the time period is included. PHOSPHORUS 4.0 2.5 - 5.0 mg/dL [facility] Specimen Blood - ARM, LEFT Performing Organization Address [facility] Hospitalcode Phone Number [facility] CLIA: [id number], [address] [place] [address] [facility] * EKG-12 LEAD (03/27/2019 11:10 AM CDT) Specimen Performing Organization Address City/[facility] Phone Number [facility] * EKG-12 LEAD ROUTINE (03/27/2019 10:37 AM CDT) Narrative Performed At Agata Erazo FNP 03/27/2019 3:04 PM EKG-12 LEAD ROUTINE Date/Time: 03/27/2019 12:26 PM Performed by: Agata Erazo FNP Authorized by: Agata Erazo FNP ECG reviewed by ED Physician in the absence of a hourly manager: yes Previous ECG: Previous ECG: Compared to [...] 12:01 AM CDT) Specimen Performing Organization Address City/State/[facility] Hospital[facility] Phone Number HIM * Drug Screen ER (03/18/2019 10:45 AM CDT) AMPHET Negative Negative [facility] Cocaine Negative Negative [facility] Metabolite SERVICES-[facility] OPIATES Negative Negative [facility] SERVICES-[facility] THC Negative Negative [facility] Specimen Urine - URINE, CLEAN CATCH Narrative Performed At Urine Drug Cutoff Ranges [facility] Amphetamine: 1,000 ng/mL [facility] Cocaine: 150 ng/mL CAMPUS Opiates: 300 ng/mL Cannabinoids: 50 ng/mL The results are to be used only for medical (i.e., treatment) purposes. Unconfirmed screening results must not be used for non-medical purposes (e.g., employment testing, legal testing). Performing Organization Address City/State/[facility] Hospital[facility] Phone Number [facility] CLIA: [id number], [address] [place] [address] [facility] * EKG-12 LEAD (03/18/2019 10:42 [...] with the above report. Performing Organization Address City/[facility] Phone Number PACS/VR/DOSE * EXTRA TUBE DK. GREEN (03/18/2019 10:13 AM CDT) Specimen Blood Performing Organization Address [facility] Phone Number [facility] CLIA: [id number], [address] [place] [address] [facility] * EXTRA TUBE URINE CULTURE (03/18/2019 10:13 AM CDT) Specimen Urine - URINE, CLEAN CATCH Performing Organization Address [facility] Phone Number [facility] CLIA: [id number], [address] [place], [place] [address] [facility] * aPTT (03/18/2019 10:13 AM CDT) APTT Patient 32 26 - 36 Seconds [facility] Specimen Blood - VENOUS Performing Organization Address [facility] Phone Number [facility] CLIA: [id number], [address] [place], [place] [address] [facility] * Prothrombin Time (PT) / INR (03/18/2019 10:13 AM CDT) PROTIME PATIENT 11.4 10.1 - 12.6 Seconds [facility] INR 1.0Comment: Normal INR <1.1; [facility] Warfarin Therapeutic range 2.0 [facility] to 3.0 or 2.5 to 3.5, [facility] depending upon the indications. Specimen Blood - VENOUS Performing Organization Address [facility] Phone Number [facility] CLIA: [id number], [address] [place] [address] [facility] * Ethanol Level (03/18/2019 10:13 AM CDT) ALCOHOL <10 mg/dL [facility] Specimen Blood - VENOUS Narrative Performed At Toxic Greater than or equal to 80 mg/dL. [facility] NOTE: Whole blood values are approximately 10% to 15% lower than serum and [facility] plasma. CAMPUS Performing Organization Address City/State/Zipcode Phone Number [facility] CLIA: [id number], [address] [place] [address] [facility] * HOSPITAL ADMISSION (03/18/2019 12:01 AM CDT) Only the most recent of 2 results within the time period is included. Specimen Performing Organization Address City/[facility]/Zipcode Phone Number HIM * REFERRAL- REQUEST/RESPONSE (03/07/2019 12:01 AM CDT) Specimen Performing Organization Address City/[facility] [facility]/Zipcode Phone Number HIM * PROTEIN CREAT RATIO URINE RANDOM (03/01/2019 4:34 PM CDT) T. PROT U 7 mg/dL [facility] CREAT U 102.0 mg/dL [facility] Protein/Creatin 0.1 0.0 - 2.0 [facility] ine Ratio Urine [facility] Specimen Urine - URINE, CLEAN CATCH Performing Organization Address [facility] Phone Number [facility] CLIA: [id number], [address] [place] [address] [facility] * CBC W/NO DIFF (03/01/2019 3:36 PM CDT) WBC 6.21 4.30 - 11.10 [facility] 10*3/L [facility] RBC 5.05 3.93 - 5.25 10*6/L [facility] HGB 14.2 11.6 - 15.0 g/dL [facility] HCT 44.0 35.7 - 45.2 % [facility] MCH 28.1 25.9 - 32.8 pg [facility] MCV 87.1 80.6 - 95.5 fL [facility] MCHC 32.3 31.6 - 35.1 g/dL [facility] PLT 207 166 - 358 10*3/L [facility] MPV 10.5 9.5 - 12.9 fL [facility] RDW-CV 13.9 12.0 - 15.5 % [facility] RDW-SD 44.2 39.0 - 49.9 fL [facility] NRBC x10^3 <0.01 10*3/L [facility] NRBC/100 WBC 0.0 0.0 - 10.0 /100 WBCs [facility] IPF % 3.8Comment: Platelet count 1.3 - 7.7 % [facility] measured by fluorescence [facility] method. [facility] Specimen Blood Performing Organization Address City/State/Zipcode Phone Number [facility] CLIA: [id number], [address] [place] [address] [facility] * [facility] PATIENT FINANCIAL POLICY (03/01/2019 1:05 PM CDT) Specimen Performing Organization Address City/State/Zipcode Phone Number [facility] * NO SHOW OR MISSED APPOINTMENT POLICY ACKNOWLEDGEMENT (03/01/2019 1:04 PM CDT) Specimen Performing Organization Address City/State/Zipcode Phone Number [facility] * FL TIME OR (NON-REPORTABLE) (02/15/2019 1:50 PM CDT) Specimen Narrative Performed At These images do not require a Radiology diagnostic report. PACS Performing Organization Address City/State/Zipcode Phone Number PACS * DAY SURGERY - [facility] (02/15/2019 12:01 AM CDT) Specimen Performing Organization Address City/State/Zipcode Phone Number [facility] * PULMONARY FUNCTION TEST (RESULTS) (02/10/2019 11:14 AM CDT) Specimen Performing Organization Address City/State/Zipcode Phone Number PFT from Last 3 Months Insurance Type Payer Benefit Subscriber ID Effective Phone Address Plan / Dates Group HMO [facility] [id number] 2019-P [phone] [address] [facility] [employer] [facility] [id number] [place] [address]
--- NOTE | 2019-06-09 19:30 | Consultation ---
DATE OF CONSULTATION: 06/07/2019 Neurology Consultation. HISTORY OF PRESENT ILLNESS: Mrs. 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 She comes initially for a colonoscopy and apparently had seizures afterwards. She is a very poor historian meandering her history pattern, but history was acquired from her significant other, who was at the bedside. States she comes in for an elective or planned colonoscopy and then after this procedure itself, she had 2 to 3 seizures, but then she has a prolonged postictal state. She reports she has had seizures most of her life, at times having 300 seizures a day, which seems unlikely, but at other times having as much as 30 seizures a day and then she had a 7-year hiatus with no events at all. Anyway, at this time she is awake and responsive and not having seizures and she was recently taken off antiepileptics by her neurologist after being recorded and found to have no evidence of epileptic activity. REVIEW OF SYSTEMS: She endorses abdominal pain, chest pain, diffuse myalgias, back pain, headaches, double vision, etc. Overall, fully positive review of systems of questionable medical or clinical use. FAMILY HISTORY: Endorses a family history of psychiatric illness. Denies of seizures and endorses history of strokes. SOCIAL HISTORY: Denies tobacco, alcohol, or drugs. PHYSICAL EXAMINATION: VITAL SIGNS: Stable. She is afebrile. Her blood pressure is 130s/70s, heart rate is 86 and regular. HEENT: Extraocular muscles intact. Face is symmetric and tongue is midline. Speech is infantile, but clear. There is no nuchal rigidity. Trachea is midline. CARDIOVASCULAR: Regular rate and rhythm. PULMONARY: Clear to auscultation. ABDOMEN: Soft and nontender with no distention. EXTREMITIES: There is no edema in the lower extremities. Her strength is 4+/5 in uppers and lowers. Reflexes are diminished. Sensory exam is grossly intact and symmetric. Toes are mute to evaluation. No tics on exam. ASSESSMENT AND PLAN: Ms. John Nieto has a history of possible seizures as well as a very complex medical history including significant psychiatric illnesses. 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 So, I will discuss with the family and decide if we are going to start her on low-dose carbamazepine to treat that and then she will need further workup and evaluation as an outpatient to adjust medications or an EMG and a muscle biopsy to prove or disprove a channelopathy. Family is stating they are okay with this plan and so we will progress as such. MD HERVE ARGUETA/ARMENL /[id number]
== END 2019-06-07 18:13 | disposition home or self-care (01) ==
LOC: OR 12:31 → PACU V 15:55 → IMCU 20:31
PROVIDERS: ADMIT Internal Medicine Gastroenterology; ATTEND Internal Medicine Gastroenterology
DX: F44.9 Dissociative and conversion disorder, unspecified (principal); K76.0 Fatty (change of) liver, not elsewhere classified; E66.01 Morbid (severe) obesity due to excess calories; Z68.36 Body mass index [BMI] 36.0-36.9, adult; E78.5 Hyperlipidemia, unspecified; I10 Essential (primary) hypertension; K29.70 Gastritis, unspecified, without bleeding; Z87.820 Personal history of traumatic brain injury; K44.9 Diaphragmatic hernia without obstruction or gangrene; K31.7 Polyp of stomach and duodenum
CPT/HCPCS: 36415; 43239; 43251; 70450; 85025; 93005; G0378 ×2; J2001; J2060 ×2; J2250; J2704; 43235

== ENCOUNTER 2019-11-08 15:26 | Emergency (ER) | payer OTHER ==
[~2019-11-08] VITALS: Ht 154.9 cm; Wt 87.1 kg
[2019-11-08] MEDS ORDERED: SODIUM CHLORIDE 0.9% 1000ML 1,000 ML IV STA (16:39)
--- NOTE | 2019-11-08 16:50 | Emergency Department Note ---
History of Present Illnes History of Present Illness Chief Complaint: Seizure History of Present Illness This is a 64 year old female . c/o sz and fall out of chair/walker hit back of head c/o pain o head neck and pelvis Pt arrived via EMS with c/o fall and seizure. Per patients she was having multiple seizures while at [employer]. Pt states she was then having a seizure and her spouse told her to sit down in her walker, states then there was a break in the floor and states she feel backwards while spouse was pushing her. States he hit the back of her head on the floor. Reports pain from back of her head to her pelvic bone. 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 Any updates have been documented here. (LAVONNE RAMON NP) Past Medical History Recent Fever: No Clinical Suspicion of Infectio: No New/Unexplained Change in Ment: No Past Medical History: Hypertension, Asthma, Seizure Disorder, Migraines, Anxiety, Depression, Hyperlipedemia, Chronic Back Pain Other Medical History: Osteoporosis, Sleep Apnea, Irritable bowel Dz, Past Surgical History: Hysterectomy, T&A Other Surgery: NOSE SURGERY BLADDER SUSPENSION LEFT & RIGHT BREAST-FIB. CYSTS REMOVED (LAVONNE RAMON NP) Social History Smoking Cessation: Never Smoker Alcohol Use: None Any Illegal Drug Use: No TB Exposure/Symptoms: No (LAVONNE RAMON NP) Family History Family history of heart diseas: No (LAVONNE RAMON NP) Other Last Tetanus: UTD (LAVONNE RAMON NP) Review of Systems Review of Systems Constitutional: no symptoms EENTM: no symptoms Cardiovascular: no symptoms Respiratory: no symptoms Gastrointestinal: no symptoms Genitourinary: no symptoms Musculoskeletal: back pain, neck pain Neurological: headache Psychological: no symptoms Endocrine: no symptoms Hematological/Lymphatic: no symptoms Review of other systems All other systems reviewed and negative. (LAVONNE RAMON NP) Physical Exam Related Data Allergies: Coded Allergies: Neuromuscular Blockers, Steroidal (Verified Allergy, Unknown, 06/17/15) Penicillins (Verified Allergy, Unknown, 01/06/16) Shellfish (Verified Allergy, Unknown, 01/06/16) Sulfa (Sulfonamide Antibiotics) (Verified Allergy, Unknown, 05/16/16) Tetanus Vaccines and Toxoid (Verified Allergy, Unknown, 01/06/16) acetaminophen (Verified Allergy, Unknown, 06/17/15) albuterol (Unverified Allergy, Unknown, 05/16/16) alprazolam (Verified Allergy, Unknown, 01/06/16) aminocaproic acid (Verified Allergy, Unknown, 01/06/16) azithromycin (Verified Allergy, Unknown, 01/06/16) benzonatate (Verified Allergy, Unknown, 01/06/16) brimonidine (Verified Allergy, Unknown, 01/06/16) brimonidine tartrate (Verified Allergy, Unknown, 01/06/16) budesonide (Unverified Allergy, Unknown, 05/16/16) buspirone (Unverified Allergy, Unknown, 05/16/16) cefaclor (Verified Allergy, Unknown, 01/06/16) cefuroxime (Verified Allergy, Unknown, 01/06/16) cephalexin (Verified Allergy, Unknown, 01/06/16) cerivastatin (Verified Allergy, Unknown, 01/06/16) ciprofloxacin (Verified Allergy, Unknown, 01/06/16) citalopram (Unverified Allergy, Unknown, 05/16/16) clarithromycin (Verified Allergy, Unknown, 01/06/16) clemastine (Verified Allergy, Unknown, 01/06/16) clindamycin (Unverified Allergy, Unknown, 05/16/16) codeine (Verified Allergy, Unknown, 01/06/16) cyclobenzaprine (Verified Allergy, Unknown, 06/17/15) diclofenac (Verified Allergy, Unknown, 06/17/15) dicyclomine (Verified Allergy, Unknown, 01/06/16) diphenhydramine (Verified Allergy, Unknown, 01/06/16) doxycycline (Verified Allergy, Unknown, 01/06/16) erythromycin base (Verified Allergy, Unknown, 01/06/16) famotidine (Verified Allergy, Unknown, 01/06/16) fexofenadine (Verified Allergy, Unknown, 01/06/16) flavoxate (Verified Allergy, Unknown, 01/06/16) fluoxetine (Verified Allergy, Unknown, 01/06/16) fluticasone (Unverified Allergy, Unknown, 05/16/16) fluvastatin (Verified Allergy, Unknown, 01/06/16) formoterol (Unverified Allergy, Unknown, 05/16/16) guaifenesin (Verified Allergy, Unknown, 01/06/16) hydrocodone (Verified Allergy, Unknown, 01/06/16) ibuprofen (Verified Allergy, Unknown, 01/06/16) iodine (Verified Allergy, Unknown, 01/06/16) ipratropium (Verified Allergy, Unknown, 01/06/16) latanoprost (Verified Allergy, Unknown, 01/06/16) latex (Verified Allergy, Unknown, 01/06/16) levocetirizine (Verified Allergy, Unknown, 01/06/16) loratadine (Verified Allergy, Unknown, 01/06/16) metoprolol (Verified Allergy, Unknown, 01/06/16) mirtazapine (Unverified Allergy, Unknown, 05/16/16) misoprostol (Verified Allergy, Unknown, 01/06/16) mupirocin (Unverified Allergy, Unknown, 05/16/16) naproxen (Verified Allergy, Unknown, 01/06/16) neomycin (Verified Allergy, Unknown, 05/16/16) niacin (Unverified Allergy, Unknown, 05/16/16) nitrofurantoin (Verified Allergy, Unknown, 01/06/16) phenazopyridine (Unverified Allergy, Unknown, 05/16/16) phenylephrine HCl (Verified Allergy, Unknown, 01/06/16) pilocarpine (Verified Allergy, Unknown, 01/06/16) polymyxin B (Verified Allergy, Unknown, 01/06/16) prednisone (Verified Allergy, Unknown, 01/06/16) pseudoephedrine (Verified Allergy, Unknown, 01/06/16) pseudoephedrine HCl (Verified Allergy, Unknown, 01/06/16) rofecoxib (Verified Allergy, Unknown, 01/06/16) simvastatin (Verified Allergy, Unknown, 01/06/16) sulfamethoxazole (Verified Allergy, Unknown, 01/06/16) triamcinolone (Verified Allergy, Unknown, 01/06/16) trimethoprim (Verified Allergy, Unknown, 01/06/16) valsartan (Verified Allergy, Unknown, 01/06/16) zafirlukast (Verified Allergy, Unknown, 01/06/16) Uncoded Allergies: ALBUTEROL PILL FORM (Allergy, Unknown, 06/17/15) STEROIDS (Allergy, Unknown, 06/17/15) Triage Vital Signs Vital Signs Date Time Temp Pulse Resp B/P (MAP) Pulse Ox O2 Delivery O2 Flow Rate FiO2 11/08/19 15:49 98.6 77 18 160/95 98 Vital signs reviewed: Yes (LAVONNE RAMON TOY CONSULTANT) Physical Exam CONSTITUTIONAL Constitutional: well-developed, well-nourished HENT HENT: normocephalic; atraumatic (fall hit back of head and neck ) HENT L/R: left ext ear normal, right ext ear normal EYES Eyes: PERRL, conjunctivae normal NECK c-collar intact c/o neck pain post fall Neck: JVD, cervical adenopathy PULMONARY Pulmonary: effort normal, breath sounds normal CARDIOVASCULAR Cardiovascular: regular rhythm, heart sounds normal, capillary refill normal, normal rate GASTROINTESTINAL Abdominal: soft, nontender, bowel sounds normal GENITOURINARY Genitourinary: exam deferred SKIN Skin: warm, dry MUSCULOSKELETAL Musculoskeletal: other (c/o low back pelvis pain post fall ) NEUROLOGICAL Neurological: alert, oriented x 3, no gross motor or sensory deficits PSYCHOLOGICAL Psychological: mood/affect normal, judgement normal Exam - additional comments pt sts was in [employer] felt like was going to have sz sat down in walker chair was pushing her out to car wheel of chair got caught in crack and pt fell out of chair hit back of head c/o charles neck pain and low back / pelvis pain (LAVONNE RAMON TOY CONSULTANT) Results Laboratory Laboratory Laboratory Tests Test 11/08/19 18:55 11/08/19 17:02 Urine Color Yellow (YELLOW) Urine Clarity Sl cloudy (CLEAR) Urine pH 6.5 (5 - 7) Urine Specific [place] 1.020 (1.010-1.025) Urine Protein Negative (NEGATIVE) Urine Glucose (UA) Negative (NEGATIVE) Urine Ketones Negative (NEGATIVE) Urine Blood Negative (NEGATIVE) Urine Nitrite Negative (NEGATIVE) Urine Bilirubin Negative (NEGATIVE) Urine Urobilinogen 0.2 mg/dL (0.2 - 1) Urine Leukocyte Esterase Negative (NEGATIVE) Urine Opiates Screen Negative (NEGATIVE) Urine Methadone Screen Negative (NEGATIVE) Urine Barbiturates Screen Negative (NEGATIVE) Urine Phencyclidine Screen Negative (NEGATIVE) Urine Amphetamines Screen Negative (NEGATIVE) Urine Methamphetamines Screen Negative (NEGATIVE) Urine Benzodiazepines Screen Negative (NEGATIVE) Urine Cocaine Screen Negative (NEGATIVE) Urine Cannabinoids Screen Negative (NEGATIVE) White Blood Count 5.29 x10e3/uL (4.8-10.8) Red Blood Count 4.84 x10e6/uL (3.6-5.1) Hemoglobin 12.8 g/dL (12.0-16.0) Hematocrit 40.0 % (34.2-44.1) Mean Corpuscular Volume 82.6 fL (81-99) Mean Corpuscular Hemoglobin 26.4 pg (28-32) Mean Corpuscular Hemoglobin Concent 32.0 g/dL (31-35) Red Cell Distribution Width 13.4 % (11.7-14.4) Platelet Count 181 x10e3/uL (140-360) Neutrophils (%) (Auto) 58.5 % (38.7-80.0) Lymphocytes (%) (Auto) 29.9 % (18.0-39.1) Monocytes (%) (Auto) 8.7 % (4.4-11.3) Eosinophils (%) (Auto) 1.9 % (0.0-6.0) Basophils (%) (Auto) 0.8 % (0.0-1.0) Neutrophils # (Auto) 3.1 (2.1-6.9) Lymphocytes # (Auto) 1.6 (1.0-3.2) Monocytes # (Auto) 0.5 (0.2-0.8) Eosinophils # (Auto) 0.1 (0.0-0.4) Basophils # (Auto) 0.0 (0.0-0.1) Absolute Immature Granulocyte (auto 0.01 x10e3/uL (0-0.1) Sodium Level 142 mmol/L (136-145) Potassium Level 3.1 mmol/L (3.5-5.1) Chloride Level 105 mmol/L (98-107) Carbon Dioxide Level 24 mmol/L (22-29) Anion Gap 16.1 mmol/L (8-16) Blood Urea Nitrogen 14 mg/dL (7-26) Creatinine 0.79 mg/dL (0.57-1.11) Estimat Glomerular Filtration Rate > 60 ML/MIN (60-) BUN/Creatinine Ratio 18 (6-25) Glucose Level 108 mg/dL (74-118) Calcium Level 9.4 mg/dL (8.4-10.2) Total Bilirubin 0.3 mg/dL (0.2-1.2) Aspartate Amino Transf (AST/SGOT) 25 IU/L (5-34) Alanine Aminotransferase (ALT/SGPT) 31 IU/L (0-55) Alkaline Phosphatase 66 IU/L (40-150) Creatine Kinase 84 IU/L (29-168) Creatine Kinase MB 1.00 ng/mL (0-5.0) Troponin I 0.001 ng/mL (0-0.300) Total Protein 7.1 g/dL (6.5-8.1) Albumin 4.1 g/dL (3.5-5.0) Globulin 3.0 g/dL (2.3-3.5) Albumin/Globulin Ratio 1.4 (0.8-2.0) Laboratory Tests Test 11/08/19 17:02 White Blood Count 5.29 x10e3/uL (4.8-10.8) Red Blood Count 4.84 x10e6/uL (3.6-5.1) Hemoglobin 12.8 g/dL (12.0-16.0) Hematocrit 40.0 % (34.2-44.1) Mean Corpuscular Volume 82.6 fL (81-99) Mean Corpuscular Hemoglobin 26.4 pg (28-32) Mean Corpuscular Hemoglobin Concent 32.0 g/dL (31-35) Red Cell Distribution Width 13.4 % (11.7-14.4) Platelet Count 181 x10e3/uL (140-360) Neutrophils (%) (Auto) 58.5 % (38.7-80.0) Lymphocytes (%) (Auto) 29.9 % (18.0-39.1) Monocytes (%) (Auto) 8.7 % (4.4-11.3) Eosinophils (%) (Auto) 1.9 % (0.0-6.0) Basophils (%) (Auto) 0.8 % (0.0-1.0) Neutrophils # (Auto) 3.1 (2.1-6.9) Lymphocytes # (Auto) 1.6 (1.0-3.2) Monocytes # (Auto) 0.5 (0.2-0.8) Eosinophils # (Auto) 0.1 (0.0-0.4) Basophils # (Auto) 0.0 (0.0-0.1) Absolute Immature Granulocyte (auto 0.01 x10e3/uL (0-0.1) Sodium Level 142 mmol/L (136-145) Potassium Level 3.1 mmol/L (3.5-5.1) Chloride Level 105 mmol/L (98-107) Carbon Dioxide Level 24 mmol/L (22-29) Anion Gap 16.1 mmol/L (8-16) Blood Urea Nitrogen 14 mg/dL (7-26) Creatinine 0.79 mg/dL (0.57-1.11) Estimat Glomerular Filtration Rate > 60 ML/MIN (60-) BUN/Creatinine Ratio 18 (6-25) Glucose Level 108 mg/dL (74-118) Calcium Level 9.4 mg/dL (8.4-10.2) Total Bilirubin 0.3 mg/dL (0.2-1.2) Aspartate Amino Transf (AST/SGOT) 25 IU/L (5-34) Alanine Aminotransferase (ALT/SGPT) 31 IU/L (0-55) Alkaline Phosphatase 66 IU/L (40-150) Creatine Kinase 84 IU/L (29-168) Creatine Kinase MB 1.00 ng/mL (0-5.0) Troponin I 0.001 ng/mL (0-0.300) Total Protein 7.1 g/dL (6.5-8.1) Albumin 4.1 g/dL (3.5-5.0) Globulin 3.0 g/dL (2.3-3.5) Albumin/Globulin Ratio 1.4 (0.8-2.0) Lab results reviewed: Yes (LAVONNE RAMON NP) Imaging Impressions Procedure: [id number] DX/PELVIS AP 1-2 VIEWS Exam Date: 11/08/19 Exam Time: 1809 REPORT STATUS: Signed EXAMINATION: AP pelvis Film CLINICAL HISTORY:Status post fall COMPARISON: None. DISCUSSION: The bones are well-mineralized. No acute, displaced fractures or dislocations. Mild degenerative changes in bilateral hip joints. Degenerative changes are also noted in the lower lumbosacral spine. No aggressive lytic or suspicious sclerotic lesions. No gross soft tissue abnormalities. IMPRESSION: 1. No acute abnormalities. Signed by: Dr. Shannon Payne M.D. on 11/08/2019 6:35 PM Dictated By: SHANNON PAYNE MD 34 Transcribed By: DAREN on 11/08/191834 Procedure: [id number] CT/CT LUMBAR SPINE WO Exam Date: 11/08/19 Exam Time: 1740 REPORT STATUS: Signed EXAMINATION: CT of the lumbar spine HISTORY: Seizure, trauma, pain COMPARISON: None available TECHNIQUE: Multidetector helical axial images were obtained without contrast from L1 to S1. The images were reconstructed using bone and soft tissue algorithms and were viewed in axial, sagittal, and coronal planes. Dose modulation, iterative reconstruction, and/or weight based adjustment of the mA/kV was utilized to reduce the radiation dose to as low as reasonably achievable. FINDINGS: Alignment: Normal alignment and lordosis. Subtle left-sided curvature. Vertebral bodies: Normal height and density. Paraspinal muscles: Normal. Intervertebral disks: L1-L2: Normal L2-L3: Normal L3-L4: Mild symmetric disc bulge and facet arthrosis. No spinal canal or foraminal stenoses. L4-L5: Symmetric disc bulge, ligamenta flava thickening and moderate facet arthrosis. Minimal spinal canal narrowing. Mild right foraminal stenoses. L5-S1: Decreased disc height, mild symmetric disc bulge, bilateral facet arthrosis. No spinal canal or foraminal stenosis. Sacroiliac joints: No acute abnormalities, mild degenerative changes. IMPRESSION: 1. No acute fractures or dislocations. 2. Mild degenerative canal or foraminal narrowing at L4-L5. 3. Moderate chronic facet arthrosis at L4-L5. 4. Note is made that acute traumatic thecal sac/cauda equina, ligamentous or vascular injury cannot adequately be assessed with CT. Signed by: Dr. Richard Daniels M.D. on 11/08/2019 6:55 PM Dictated By: RICHARD DANIELS MD 54 Transcribed By: DAREN on 11/08/191854 Procedure: [id number] CT/CT CERVICAL SPINE WO Exam Date: 11/08/19 Exam Time: 1740 REPORT STATUS: Signed EXAMINATION: Head and cervical spine CT without contrast. HISTORY: Seizure, trauma, pain COMPARISON: Head CT 06/07/2019 TECHNIQUE: Multidetector axial images were obtained without contrast from the foramen magnum to the vertex and through the cervical spine. The images were reconstructed using brain and bone algorithms. Thin section brain images were reformatted into coronal and sagittal planes. Dose modulation, iterative reconstruction, and/or weight based adjustment of the mA/kV was utilized to reduce the radiation dose to as low as reasonably achievable. HEAD CT FINDINGS: Skull/scalp: No lytic or blastic lesions. No fractures. Parenchyma: Normal. No mass, hemorrhage or CT evidence of acute vascular insult. Brain volume: Prominence of the cerebellar folia which may be related to atrophy, perhaps associated to chronic anticonvulsant medication in the appropriate clinical setting. Ventricles: No hydrocephalus or displacement. Arteries: No density suggestive of thrombus. Dural sinuses: No abnormal density. Extra-axial spaces: No abnormal density. Foramen magnum: No mass, Chiari malformation, or basilar invagination. Sella: No obvious mass. Paranasal/mastoid sinuses: Hypo pneumatization and sclerosis of the right mastoid air cells, which may represent sequela from remote/chronic inflammatory process in the appropriate clinical setting. Otherwise clear. CERVICAL SPINE CT FINDINGS: Alignment:Normal alignment and lordosis. Soft tissues: Normal. Vertebrae: Normal height and density. No acute fracture, infection or neoplasm. Partially visualized benign hemangioma in the right side of the T2 vertebral body. Degenerative changes: No significant degenerative changes, no spinal canal or foraminal stenosis. IMPRESSION: Head CT: 1. No acute postraumatic intracranial hemorrhage, particularly no hemorrhage. 2. Mild infratentorial volume loss, unchanged from prior study. Cervical spine CT: No acute fractures or dislocations. Note: Acute post traumatic spinal cord, vascular or ligamentous injury cannot adequately be assessed with CT. Signed by: Dr. Richard Daniels M.D. on 11/08/2019 6:51 PM Dictated By: RICHARD DANIELS MD Electronically Signed By: RICHARD DANIELS MD on 11/07 Procedure: [id number] CT/CT BRAIN WO Exam Date: 11/08/19 Exam Time: 1740 REPORT STATUS: Signed EXAMINATION: Head and cervical spine CT without contrast. HISTORY: Seizure, trauma, pain COMPARISON: Head CT 06/07/2019 TECHNIQUE: Multidetector axial images were obtained without contrast from the foramen magnum to the vertex and through the cervical spine. The images were reconstructed using brain and bone algorithms. Thin section brain images were reformatted into coronal and sagittal planes. Dose modulation, iterative reconstruction, and/or weight based adjustment of the mA/kV was utilized to reduce the radiation dose to as low as reasonably achievable. HEAD CT FINDINGS: Skull/scalp: No lytic or blastic lesions. No fractures. Parenchyma: Normal. No mass, hemorrhage or CT evidence of acute vascular insult. Brain volume: Prominence of the cerebellar folia which may be related to atrophy, perhaps associated to chronic anticonvulsant medication in the appropriate clinical setting. Ventricles: No hydrocephalus or displacement. Arteries: No density suggestive of thrombus. Dural sinuses: No abnormal density. Extra-axial spaces: No abnormal density. Foramen magnum: No mass, Chiari malformation, or basilar invagination. Sella: No obvious mass. Paranasal/mastoid sinuses: Hypo pneumatization and sclerosis of the right mastoid air cells, which may represent sequela from remote/chronic inflammatory process in the appropriate clinical setting. Otherwise clear. CERVICAL SPINE CT FINDINGS: Alignment:Normal alignment and lordosis. Soft tissues: Normal. Vertebrae: Normal height and density. No acute fracture, infection or neoplasm. Partially visualized benign hemangioma in the right side of the T2 vertebral body. Degenerative changes: No significant degenerative changes, no spinal canal or foraminal stenosis. IMPRESSION: Head CT: 1. No acute postraumatic intracranial hemorrhage, particularly no hemorrhage. 2. Mild infratentorial volume loss, unchanged from prior study. Cervical spine CT: No acute fractures or dislocations. Note: Acute post traumatic spinal cord, vascular or ligamentous injury cannot adequately be assessed with CT. Signed by: Dr. Richard Daniels M.D. on 11/08/2019 6:51 PM Dictated By: RICHARD DANIELS MD 50 Transcribed By: DAREN on 11/08/191850 (LAVONNE RAMON NP) Procedures 12 Lead ECG Interpretation Entry Clerk: Interpreted by ED physician (David) Date: November 08, 2019 Time: 17:10 Prior CLOSING MANAGER tracings: reviewed Rhythm: sinus rhythm Rate: normal BPM: 67 QRS axis: normal Conduction: incomplete RBBB Clinical Impression: normal ECG (LAVONNE RAMON NP) Critical Care Time Subsequent provider I assumed direction of critical care for this patient from another provider of my specialty. (LAVONNE RAMON NP) Assessment & Plan Reassessment Reassessment 64y f presented to ed c/o charles neck pain back/pelvis pain post fall out of chair - pt sts was in [employer] felt like was going to have sz sat down in walker chair was pushing her out to car wheel of chair got caught in crack and pt fell out of chair hit back of head c/o charles neck pain and low back / pelvis pain - Dr Hernandez in eval pt status - lab ekg ct brain ct cervical rad pelvis lumbar ordered (LAVONNE RAMON NP) Assessment & Plan Final Impression: (1) Contusion (2) Head injury (3) Neck pain Assessment & Plan Dr Talavera in eval pt status - discussed lab ct results plan of care and f/u instructions 1. follow up with your doctor / neurologist in 1-2 days without fail 2. tylenol and motrin 3. return to ed as needed (LAVONNE RAMON NP) Depart Disposition: HOME, SELF-CARE Last Vital Signs Date Time Temp Pulse Resp B/P (MAP) Pulse Ox O2 Delivery O2 Flow Rate FiO2 11/08/19 15:49 98.6 77 18 160/95 98 (LAVONNE RAMON NP) Home Meds Reported Medications Dicyclomine Hcl (DICYCLOMINE HCL) 20 Mg Tablet, 20 MG PO DAILY, TAB 05/30/19 Omeprazole (OMEPRAZOLE) 40 Mg Capsule., PO DAILY 05/30/19 Gabapentin (GABAPENTIN) 400 Mg Capsule, 400 MG PO TID, #30 CAP 05/30/19 Hydrochlorothiazide (HYDROCHLOROTHIAZIDE) 25 Mg Tablet, 25 MG PO DAILY, #30 TAB 05/30/19 Cetirizine Hcl (CETIRIZINE HCL) 10 Mg Tablet, PO DAILY 05/30/19 Famotidine (FAMOTIDINE) 20 Mg Tab, 20 MG PO HS, #30 TAB 05/30/19 Montelukast Sodium (MONTELUKAST SODIUM) 10 Mg Tablet, 10 MG PO DAILY, #30 TAB 05/30/19 Mirtazapine (MIRTAZAPINE) 15 Mg Tab, 7.5 MG PO HS, TAB 05/30/19 Sertraline Hcl (SERTRALINE HCL) 50 Mg Tablet, 25 MG PO DAILY, #30 TAB 05/30/19 [Smx/Tmp] No Conflict Check, 1 TAB PO BID 05/30/19 Physician Attestation Provider Attestation The patient's history, exam findings, diagnostics, and a summary of any interventions or procedures was reviewed in detail with our VANESSA. I personally interviewed and examined the patient, and I have reviewed and agree with the HPI andexam. My personal exam shows [ patient with diffuse back pain s/p fall. Anxious . S/W Spouse who states that patient has 10 "seizure" like actiivty per day. Injury at [employer] after patient fell over chair. Multiple requests for pain medication. Prior to discharge patient with myoclonic activity but fully cognizant. Plan to discharge to home with instructions to f/u to PCP and neurology ]. I confirm the diagnosis as documented by the VANESSA. I have reviewed and agree with the care plan articulated in the disposition section. (LAVONNE TALAVERA DO) LAVONNE RAMON NP November 08, 2019 16:50 LAVONNE TALAVERA DO November 08, 2019 19:09
[2019-11-08] MEDS ORDERED: SODIUM CHLORIDE 0.9% 1000ML 1,000 ML ONE (17:17)
[2019-11-08 17:19] LABS: BASOPHILS % 0.8 % (0.0-1.0); EOSINOPHILS # (AUTO) 0.1 (0.0-0.4); EOSINOPHILS % 1.9 % (0.0-6.0); HEMOGLOBIN 12.8 g/dL (12.0-16.0); LYMPHOCYTES # (AUTO) 1.6 (1.0-3.2); LYMPHOCYTES % 29.9 % (18.0-39.1); MEAN CORPUSCULAR HEMOGLOBIN 26.4 pg (28-32); MEAN CORPUSCULAR VOLUME 82.6 fL (81-99); MONOCYTES # (AUTO) 0.5 (0.2-0.8); MONOCYTES % 8.7 % (4.4-11.3); NEUTROPHILS # (AUTO) 3.1 (2.1-6.9); NEUTROPHILS % 58.5 % (38.7-80.0); PLATELET COUNT 181 x10e3/uL (140-360); RED BLOOD COUNT 4.84 x10e6/uL (3.6-5.1); RED CELL DISTRIBUTION WIDTH 13.4 % (11.7-14.4)
[2019-11-08 17:36] LABS: ALANINE AMINOTRANSFERASE 31 IU/L (0-55); ALBUMIN 4.1 g/dL (3.5-5.0); ALBUMIN/GLOBULIN RATIO 1.4 (0.8-2.0); ALKALINE PHOSPHATASE 66 IU/L (40-150); ANION GAP 16.1 mmol/L (8-16); BLOOD UREA NITROGEN 14 mg/dL (7-26); BUN/CREATININE RATIO 18 (6-25); CALCIUM 9.4 mg/dL (8.4-10.2); CARBON DIOXIDE 24 mmol/L (22-29); CHLORIDE 105 mmol/L (98-107); CREATINE KINASE 84 IU/L (29-168); CREATININE, SERUM 0.79 mg/dL (0.57-1.11); EST GLOMERULAR FILTRATION RATE > 60 ML/MIN (60-); GLUCOSE 108 mg/dL (74-118); POTASSIUM 3.1 mmol/L (3.5-5.1); SODIUM 142 mmol/L (136-145)
[2019-11-08] MEDS ORDERED: POTASSIUM CHLORIDE 20 MEQ TAB CR PO STA (18:15)
--- NOTE | 2019-11-08 18:38 | Diagnostic Imaging Report ---
EXAMINATION: AP pelvis Film CLINICAL HISTORY:Status post fall COMPARISON: None. DISCUSSION: The bones are well-mineralized. No acute, displaced fractures or dislocations. Mild degenerative changes in bilateral hip joints. Degenerative changes are also noted in the lower lumbosacral spine. No aggressive lytic or suspicious sclerotic lesions. No gross soft tissue abnormalities. IMPRESSION: 1. No acute abnormalities. Signed by: Dr. Omar Payne M.D. on 11/08/2019 6:35 PM
--- NOTE | 2019-11-08 18:55 | Diagnostic Imaging Report ---
EXAMINATION: Head and cervical spine CT without contrast. HISTORY: Seizure, trauma, pain COMPARISON: Head CT 06/07/2019 TECHNIQUE: Multidetector axial images were obtained without contrast from the foramen magnum to the vertex and through the cervical spine. The images were reconstructed using brain and bone algorithms. Thin section brain images were reformatted into coronal and sagittal planes. Dose modulation, iterative reconstruction, and/or weight based adjustment of the mA/kV was utilized to reduce the radiation dose to as low as reasonably achievable. HEAD CT FINDINGS: Skull/scalp: No lytic or blastic lesions. No fractures. Parenchyma: Normal. No mass, hemorrhage or CT evidence of acute vascular insult. Brain volume: Prominence of the cerebellar folia which may be related to atrophy, perhaps associated to chronic anticonvulsant medication in the appropriate clinical setting. Ventricles: No hydrocephalus or displacement. Arteries: No density suggestive of thrombus. Dural sinuses: No abnormal density. Extra-axial spaces: No abnormal density. Foramen magnum: No mass, Chiari malformation, or basilar invagination. Sella: No obvious mass. Paranasal/mastoid sinuses: Hypo pneumatization and sclerosis of the right mastoid air cells, which may represent sequela from remote/chronic inflammatory process in the appropriate clinical setting. Otherwise clear. CERVICAL SPINE CT FINDINGS: Alignment:Normal alignment and lordosis. Soft tissues: Normal. Vertebrae: Normal height and density. No acute fracture, infection or neoplasm. Partially visualized benign hemangioma in the right side of the T2 vertebral body. Degenerative changes: No significant degenerative changes, no spinal canal or foraminal stenosis. IMPRESSION: Head CT: 1. No acute postraumatic intracranial hemorrhage, particularly no hemorrhage. 2. Mild infratentorial volume loss, unchanged from prior study. Cervical spine CT: No acute fractures or dislocations. Note: Acute post traumatic spinal cord, vascular or ligamentous injury cannot adequately be assessed with CT. Signed by: Dr. Criss Daniels M.D. on 11/08/2019 6:51 PM
--- NOTE | 2019-11-08 18:58 | Diagnostic Imaging Report ---
EXAMINATION: CT of the lumbar spine HISTORY: Seizure, trauma, pain COMPARISON: None available TECHNIQUE: Multidetector helical axial images were obtained without contrast from L1 to S1. The images were reconstructed using bone and soft tissue algorithms and were viewed in axial, sagittal, and coronal planes. Dose modulation, iterative reconstruction, and/or weight based adjustment of the mA/kV was utilized to reduce the radiation dose to as low as reasonably achievable. FINDINGS: Alignment: Normal alignment and lordosis. Subtle left-sided curvature. Vertebral bodies: Normal height and density. Paraspinal muscles: Normal. Intervertebral disks: L1-L2: Normal L2-L3: Normal L3-L4: Mild symmetric disc bulge and facet arthrosis. No spinal canal or foraminal stenoses. L4-L5: Symmetric disc bulge, ligamenta flava thickening and moderate facet arthrosis. Minimal spinal canal narrowing. Mild right foraminal stenoses. L5-S1: Decreased disc height, mild symmetric disc bulge, bilateral facet arthrosis. No spinal canal or foraminal stenosis. Sacroiliac joints: No acute abnormalities, mild degenerative changes. IMPRESSION: 1. No acute fractures or dislocations. 2. Mild degenerative canal or foraminal narrowing at L4-L5. 3. Moderate chronic facet arthrosis at L4-L5. 4. Note is made that acute traumatic thecal sac/cauda equina, ligamentous or vascular injury cannot adequately be assessed with CT. Signed by: Dr. Criss Daniels M.D. on 11/08/2019 6:55 PM
[2019-11-08 19:06] LABS: BILIRUBIN,URINE NEGATIVE (NEGATIVE); CLARITY,URINE SL CLOUDY (CLEAR); COLOR,URINE YELLOW (YELLOW); KETONES,URINE NEGATIVE (NEGATIVE); LEUKOCYTE ESTERASE ,URINE NEGATIVE (NEGATIVE); NITRITE,URINE NEGATIVE (NEGATIVE); PROTEIN,URINE DIPSTICK NEGATIVE (NEGATIVE); URINE UROBILINOGEN 0.2 mg/dL (0.2 - 1)
[2019-11-08 19:09] LABS: AMPHETAMINES SCREEN,URINE NEGATIVE (NEGATIVE); BENZODIAZEPINES SCREEN,URINE NEGATIVE (NEGATIVE); PHENCYCLIDINE SCREEN,URINE NEGATIVE (NEGATIVE)
--- NOTE | 2019-11-08 19:11 | NUR ---
cervial collar removed per MD request.
--- NOTE | 2019-11-08 19:21 | NUR ---
report given to Donny SAVAGE
[2019-11-08 19:27] LABS: BACTERIA,URINE MODERATE /HPF; MUCUS,URINE FEW (RARE)
[2019-11-08 20:31] VITALS: BP 149/80
--- OUTSIDE RECORDS SUMMARY | 2019-11-09 10:01 | XMS REPORT ---
Author Author John Siegel Organization [employer] Address Unknown Phone Unavailable Care Team Providers Care Ash Kier Boiler Name Role Phone Robbin Siegel CP Unavailable Allergies No Known Allergies Problems Problem Type Condition Code Onset Dates Condition Statu s Problem Benign hypertensive heart disease withou t congestive heart failure I11.9 Active Problem Uncomplicated asthma, unspecified asthma severity J45. 909 Active Problem Reflux esophagitis K21.0 Active Problem PTSD (post-traumatic stress disorder) F43.10 Active Assessment Benign hypertensive heart disease withou t congestive heart failure I11.9 Active Medications Medication Code System Code Instructions Start Date End Date Status Dosage Diovan HCT [facility] 17482846022 80-12.5 MG Orally Once a day September 20 18 Active 1 tablet Results No Known Results Summary Purpose [employer] Submission
--- OUTSIDE RECORDS SUMMARY | 2019-11-09 10:01 | XMS REPORT ---
Author Author John Siegel Organization [employer] Address Unknown Phone Unavailable Care Team Providers Care Aircraft Restorer Name Role Phone Robbin Siegel CP Unavailable Allergies, Adverse Reactions, Alerts Substance Reaction Event Type Penicillin Info Not Available Drug Allergy sulfa Info Not Available Drug Allergy Iodine Info Not Available Drug Allergy steroids Info Not Available Non Drug Allergy Problems Problem Type Condition Code Onset Dates Condition Statu s Assessment Uncomplicated asthma, unspecified asthma severity J45. 909 Active Assessment Reflux esophagitis K21.0 Active Assessment PTSD (post-traumatic stress disorder) F43.10 Active Assessment Palpitations R00.2 Active Problem Benign hypertensive heart disease withou t congestive heart failure I11.9 Active Problem Uncomplicated asthma, unspecified asthma severity J45. 909 Active Problem Reflux esophagitis K21.0 Active Assessment Seizure R56.9 Active Assessment Benign hypertensive heart disease withou t congestive heart failure I11.9 Active Problem PTSD (post-traumatic stress disorder) F43.10 Active Assessment Precordial pain R07.2 Active Medications Medication Code System Code Instructions Start Date End Date Status Dosage HydrOXYzine HCl ND 29909706069 25 MG Orally DIRECTED Active 1 tablet 3 times a day and 2 tablets at bed time Montelukast Sodium ND 33181764343 10 MG Orally Once a day Active 1 tablet in the evening Ativan ND 63609529605 2 MG Orally Once a day Activ e 1 tablet at bedtime as needed Metoprolol NDC 0 50 MG Orally Active not def ined Omeprazole ND 26294625359 40 MG Orally Once a day A ctive 1 capsule Advair Diskus [facility] [address]-47 250-50 MCG/DOSE Inhalation Active not defined Amlodipine Besylate ND 55561855455 5 MG Orally Once a day Active 1 tablet Sertraline HCl ND 69167177604 100 MG Orally Once a day Active 1 tablet Lorazepam ND 68448655292 0.5 MG Orally every 6 hrs Active 1 tablet as needed Atenolol ND 62985103818 25 MG Orally Once a day Act frederick 1 tablet Proventil HFA [facility] 53588028911 108 (90 Base) MCG/ACT Inhalation e very 4 hrs Active 2 puffs as needed Vital Signs Date/Time: May 20, 2017 BMI 34.76 Index Weight 178 lbs Height 5'1 in Cardiac Monitoring Heart Rate 96 /min Blood Pressure Diastolic 86 mm Hg Blood Pressure Systolic 122 mm Hg Results No Known Results Summary Purpose [employer] Submission
--- OUTSIDE RECORDS SUMMARY | 2019-11-09 10:01 | XMS REPORT ---
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 Name Role Phone Robbin Siegel CP Unavailable [...] Instructions Start Date End Date Status Dosage Amlodipine Besylate [facility] 60287864144 5 MG Orally Once a day Active 1 tablet Metoprolol ND 0 50 MG Orally Active not def ined Montelukast Sodium ND 90712367838 10 MG Orally Once a day Active 1 tablet in the evening Diovan HCT ND 84273998862 80-12.5 MG Orally Once a day Active 1 tablet Atenolol ND 28910341095 25 MG Orally Once a day Act frederick 1 tablet Sertraline HCl ND 16337367658 100 MG Orally Once a day Active 1 tablet Atenolol ND 53820213298 25 MG Orally Once a day Act frederick 1 tablet Ativan ND 64061859689 2 MG Orally Once a day Activ e 1 tablet at bedtime as needed Proventil HFA [facility] 12383504198 108 (90 Base) MCG/ACT Inhalation e very 4 hrs Active 2 puffs as needed Omeprazole ND 91861681290 40 MG Orally Once a day A ctive 1 capsule HydrOXYzine HCl [facility] 84024534494 25 MG Orally DIRECTED Active 1 tablet 3 times a day and 2 tablets at bed time Lorazepam [facility] 17356417969 0.5 MG Orally every 6 hrs Active 1 tablet as needed Advair Diskus [facility] [address]-62 250-50 MCG/DOSE Inhalation Active not defined Vital Signs Date/Time: October 19, 2017 BMI 35.93 Index Weight 184 lbs Height 5'1 in Cardiac Monitoring Heart Rate 104 /min Blood Pressure Diastolic 86 mm Hg Blood Pressure Systolic 144 mm Hg Results No Known Results Summary Purpose [employer] Submission
--- OUTSIDE RECORDS SUMMARY | 2019-11-09 10:01 | XMS REPORT | Clinical Summary ---
Author Author [facility] Organization [facility] Address Unknown Phone Unavailable Care Team Providers Care Load Out Supervisor Name Role Phone PCP Unavailable Allergies Comments Active Allergy Reactions Severity Noted Date Zafirlukast 03/08/2014 Fexofenadine Rash, Itching 07/29/2012 Eyes itchy and puffy Brimonidine Tartrate 12/13/2013 Diclofenac-Misoprostol Rash, Itching 07/29/2012 Sulfamethoxazole-Trimetho Rash, Itching 07/29/2012 prim Cerivastatin Rash, Itching 02/27/2013 Diphenhydramine Hcl Breathing 07/29/2012 problems, Rash, Itching Dicyclomine Rash, Itching 07/29/2012 Clarithromycin Rash, Itching 07/29/2012 Cefaclor Rash, Itching 07/29/2012 Cefuroxime Axetil Rash, Itching 07/29/2012 Cephalexin Rash, 07/29/2012 Itching, Swelling Ciprofloxacin Rash, Itching 07/29/2012 Loratadine Rash, 07/29/2012 Itching, Angioedema Codeine Rash, Itching 07/29/2012 Valsartan Rash, Itching 07/29/2012 Doxycycline Itching 07/29/2012 Phenylephrine-Guaifenesin Rash, Itching 07/29/2012 Erythromycin Lactobionate Rash, Itching 07/29/2012 Erythromycin (Bulk) Rash, 07/29/2012 Itching, Angioedema Flavoxate Hcl 03/08/2014 Iodine And Iodide Hives, 07/29/2012 Containing Products Itching, Swelling Eye itch Latanoprost 12/13/2013 Latex, Natural Rubber 03/10/2013 Fluvastatin Rash, Itching 07/29/2012 Hydrocodone-Acetaminophen Rash, Itching 07/29/2012 Nitrofurantoin Rash, Itching 07/29/2012 Monohyd/M-Cryst Nitrofurantoin Rash, Itching 07/29/2012 Macrocrystalline Metoprolol Tartrate Rash 08/02/2012 Ibuprofen Rash, Itching 07/29/2012 Guaifenesin Rash, Itching 07/29/2012 Nose bleed Triamcinolone Acetonide Itching, 07/29/2012 Other Lygexerb-Hrnddkqtx-Ir Itching 02/27/2013 Bilateral leg numbness Neuromuscular Blockers, Other 07/29/2012 Steroidal Penicillins Anaphylaxis 07/29/2012 Famotidine Rash, Itching 07/29/2012 Prednisone Rash, Itching 07/29/2012 laryngoedema Fluoxetine Rash, Itching High 09/21/2012 Shellfish Containing Hives, 07/29/2012 Products Itching, Swelling Sulfa (Sulfonamide Rash, 07/29/2012 Antibiotics) Itching, Swelling Clemastine Rash, Itching 07/29/2012 Patient states went to ED for allergic reaction to Tdap. Tetanus Vaccines And Rash, 08/02/2012 Toxoid Itching, Swelling Rofecoxib Rash, Itching 07/29/2012 Alprazolam Rash, Itching 07/29/2012 Levocetirizine Rash, Itching 07/29/2012 itching of the throat, tightness in the neck, chest pain, and heavy breathing; last dose was 04/02/2015; stated she only took 1 dose of the medicine Azithromycin Rash, Itching High 07/29/2012 Simvastatin Rash, Itching 07/29/2012 Medications End Date Status Medication Sig Dispensed Refills Start Date Active niacin, Take 1 tablet 90 tablet 1 antihyperlipidemic, by mouth at 3 (NIASPAN) 500 mg extended bedtime. release tabletIndications: Hyperlipidemia Active peak flow meter by 1 Device 0 DeviIndications: Asthma Misc.(Non-Estuardo 4 g; Combo Route) route. Active latanoprost (XALATAN) instill 1 7.5 mL 1 09/20 0.005 % ophthalmic drop into 4 solution both eyes every night at bedtime Active brimonidine (ALPHAGAN P) Instill 1 15 mL 1 0 0.15 % ophthalmic Drop in each 4 solution eye 2 times daily. Active pilocarpine (ISOPTO Instill 1 15 mL 1 CARPINE) 1 % ophthalmic Drop in each 4 solutionIndications: eye 4 times Glaucoma suspect daily. Active albuterol (PROVENTIL) 2 Take 1 tablet 180 tablet 8 mg tabletIndications: by mouth 3 4 Asthmatic bronchitis times daily as needed for Other (prn for shortness of breath). Active Nebulizer & Compressor by 1 Device 0 For Neb DeviIndications: Misc.(Non-Estuardo 4 Asthma g; Combo Route) route. Active ipratropium (ATROVENT) Inhale 2.5 mL 250 mL 4 1 0.02 % nebulizer by mouth 4 4 solutionIndications: times daily. Asthmatic bronchitis Active albuterol (PROVENTIL HFA) Inhale 2 20.1 g 6 90 mcg/actuation Puffs by 4 inhalerIndications: mouth 4 times Asthma daily as needed for Wheezing. Active EPINEPHrine (EPIPEN Inject 0.3 mL 2 Each 1 05/21 2-ERIC) 0.3 mg/0.3 mL intramuscular 4 (1:1,000) ly as needed injectionIndications: for Multiple drug allergies, Anaphylaxis. Itching Active benzonatate (TESSALON Take 1 30 capsule 0 05/21 PERLES) 100 mg capsule by 4 capsuleIndications: mouth 3 times Sorethroat daily as needed for up to 30 doses for Cough. Active aminocaproic acid take 16ml by 237 mL 0 08/22/ 01 (AMICAR) 25 % syrup mouth swish 5 around in your mouth for 2 minutes and then spit out. take every 4 hours for 1 to 2 days after your procedure Active ezetimibe (ZETIA) 10 mg Take 1 tablet 90 tablet 1 tablet by mouth 5 daily. Active albuterol (PROVENTIL) 2.5 Inhale 3 mL 300 mL 4 mg /3 mL (0.083 %) by mouth 5 nebulizer every 4 hours solutionIndications: as needed for Asthma Wheezing or Shortness of Breath. Active naproxen (NAPROSYN) 375 Take 1 tablet 30 tablet 0 mg tabletIndications: by mouth 2 5 Neck pain, Back pain times daily as needed for Pain. Active metoprolol (TOPROL XL) 50 Take 1 tablet 90 tablet 1 mg extended release by mouth 5 tabletIndications: HTN daily. (hypertension) Active cyclobenzaprine Take 1 tablet 30 tablet 0 11/23/19 1 (FLEXERIL) 10 mg by mouth 2 5 tabletIndications: times daily Musculoskeletal pain as needed for Muscle Spasms. Active traMADol (ULTRAM) 50 mg Take 1 tablet 30 tablet 0 tabletIndications: Caries by mouth 5 every 6 hours as needed for Pain. Active nystatin (NYSTOP) 100,000 Apply to 15 g 11 unit/gram topical affected area 5 powderIndications: 3 times Intertrigo daily. Active nystatin (MYCOSTATIN) Apply to 30 g 3 12/20 topical creamIndications: affected area 5 Intertrigo 2 times daily. Active Nebulizer & Compressor by 1 Device 0 For Neb DeviIndications: Misc.(Non-Estuardo 5 Asthma g; Combo Route) route. Active traMADol (ULTRAM) 50 mg Take 1 tablet 30 tablet 0 tabletIndications: by mouth 5 Right-sided low back pain every 6 hours without sciatica as needed for Pain. Active artificial tears Instill in 7 g 0 (LACRI-LUBE) 56.8-42.5 % each eye As 5 OintIndications: Eye directed. pain, bilateral Active hydrOXYzine (ATARAX) 25 Take 1 tab in 90 tablet 2 mg tabletIndications: the morning 5 Anxiety state, and 2 tabs at unspecified bedtime. Active theophylline (THEOCHRON) Take 1 tablet 90 tablet 1 100 mg extended release by mouth 5 tabletIndications: daily. Asthmatic bronchitis, severe persistent, with acute exacerbation Active clonazePAM (KLONOPIN) 1 Take 1 tablet 60 tablet 2 mg tabletIndications: JARON by mouth 2 6 (generalized anxiety times daily. disorder) Active Problems Problem Noted Date Influenza vaccination declined 04/10/2015 Chronic low back pain-no surg intervention ; PT ; URI (upper respiratory infection) 03/29/2015 JARON (generalized anxiety disorder) 12/19/2014 Osteopenia- 2014 - to review next visit with pt 12/06/2014 Knee pain 06/10/2014 Diverticulosis; int hemorrhoids per colonoscopy 4 05/20/2014 Asthma 04/10/2014 Glaucoma suspect 12/13/2013 Dry eye syndrome 12/13/2013 Glaucoma 10/13/2013 Cyst- 1 cm- rt forearm ; non tender 10/13/2013 Bladder spasm 01/19/2013 Multiple drug allergies 11/21/2012 HISTORY OF HYSTERECTOMY/ BSO; endometriosis 08/24/19 13 Interstitial cystitis 08/12/2012 Fatty liver 08/12/2012 Hearing impaired- since , ; had tubes ea rly; 1980 last hearing 07/29/2012 evaluation Caregiver stress- daughter 28 yr with TBI needing hel p and has sz history- 07/29/2012 pt finds difficult to handle sz Hyperlipidemia-on diet; rash itching with zocor ; st arted zetia as of 07/29/201207/2013 -not taking as of 06/2014; allerg ic to fish/oil HTN (hypertension)- taking toprol 07/29/2012 H/O allergy to multiple drugs- ref to allergy special ist done 07/29/2012 Immunizations Name Administration Dates Next Due Influenza Vaccine 05/30/2015, 09/18/2013 (Def erred: Patient Refused) Ipratropium 0.02t (2.5ml) 07/26/2014 Pneumoccoccal 12/06/2014 (Deferred: Contr aindication - deferred ( many allergies)) Tdap Tetanus, diphtheria, 07/29/2012 acellular pertussis Vaccine Family History Medical History Relation Name Comments Cancer Father Diabetes Father Relation Name Status Comments Brother Alive Father Mother Alive Sister Alive Social History Date Tobacco Use Types Packs/Day Years Used Never Smoker Smokeless Tobacco: Never Used Tobacco Cessation: Counseling Given: No Drinks/Week oz/Week Comments Alcohol Use No Sex Assigned at Date Recorded Not on file Industry Job Start Date Occupation Not on file Not on file Not on file Travel End Travel History Travel Start No recent travel history available. Last Filed Vital Signs Not on file Plan of Treatment Health Maintenance Due Date Last Done Comments Colorectal Cancer Scrn 07/24/2014 07/24/2013 Annual (FIT/FOBT) Age 50 to 75 Breast Cancer Scrn 03/11/2016 03/11/2015, 014, 03/03/2013 (Yearly) Cervical Cancer Scrn (3 08/03/2016 08/03/2013, , 08/23/2012, Yrs) Additional history exists Results Not on fileafter 11/07/2018 Insurance Type Payer Benefit Subscriber ID Effective Phone Address Plan / Dates Group [facility] xxxxxxxxx 2015- [phone] [facility] Present [id number] [facility] [id number] [facility] xxxxxxxxx 2015- [phone] [facility] Present [id number] [place] [address]
--- OUTSIDE RECORDS SUMMARY | 2019-11-09 10:01 | XMS REPORT | Clinical Summary ---
Author Author [facility] Organization [facility] Address Unknown Phone Unavailable Care Team Providers Care Condenser Tester Name Role Phone Mark Pacheco MD PCP Allergies Comments Active Allergy Reactions Severity Noted Date Clindamycin Itching Medium 11/25/2017 Unknown reaction Corticosteroids Rash Medium 01/20/2016 (Glucocorticoids) Unknown reaction Iodine And Iodide Shortness Of High 01/20/2016 Containing Products Breath Lincomycin Rash Medium 09/15/2017 rash Nitrofurantoin 04/20/2018 Monohyd/M-Cryst Penicillins Shortness Of High 01/20/2016 Breath Shellfish Containing Rash Low 8 Products unknown Sulfa (Sulfonamide Rash Medium 01/20/2016 Antibiotics) Unknown reaction Tetanus Vaccines And Rash Low 6 Toxoid Medications End Date Status Medication Sig Dispensed Refills Start Date Active montelukast (SINGULAIR) Take 10 mg by 1 10 mg tablet mouth every 8 evening. Active cetirizine (ZyrTEC) 10 MG Take 10 mg by 3 10/20 tablet mouth every 8 morning. Active VITAMIN D2 50,000 unit Take 50,000 2 11/11/07 22 capsule Units by 8 mouth every 7 days. Pt takes on Wednesday Active hydrOXYzine (ATARAX) 25 Take 25 mg by 2 MG tablet mouth every 8 morning. Active hydrOXYzine (ATARAX) 25 Take 50 mg by 0 MG tablet mouth every evening. Active LORAZepam (ATIVAN) 0.5 MG Take 1.5 mg 0 10/19 tablet by mouth 3 8 (three) times a day. Active losartan (COZAAR) 50 MG Take 50 mg by 2 tablet mouth every 8 morning. Active albuterol (PROAIR Inhale 2 0 HFA,PROVENTIL puffs every 6 HFA,VENTOLIN HFA) 90 (six) hours mcg/actuation inhaler as needed (RESCUE INHALER). Active ADVAIR HFA 115-21 Inhale 2 2 mcg/actuation inhaler puffs 2 (two) 8 times a day. Active acetaminophen (TYLENOL) Take 500 mg 0 500 MG tablet by mouth every 6 (six) hours as needed for mild pain. Active sertraline (ZOLOFT) 100 Take 100 mg 0 MG tablet by mouth nightly. Active gabapentin (NEURONTIN) Take 300 mg 0 300 mg capsule by mouth 3 (three) times a day. Active acetaminophen-codeine Take 1 tablet 0 (TYLENOL WITH CODEINE #3) by mouth 300-30 mg per tablet every 6 (six) hours as needed for moderate pain. Active omeprazole (PriLOSEC) 40 Take 40 mg by 0 MG capsule mouth daily. Active dicyclomine (BENTYL) 10 Take 10 mg by 0 MG capsule mouth 3 (three) times a day. Active amLODIPine (NORVASC) 5 mg Take 5 mg by 0 tablet mouth daily. Active hydroCHLOROthiazide Take 25 mg by 0 (HYDRODIURIL) 25 MG mouth daily. tablet Active metFORMIN (GLUCOPHAGE) Take 1,000 mg 0 1,000 mg tablet by mouth 2 (two) times a day with meals. Active fexofenadine (MAXI) Take 180 mg 0 180 MG tablet by mouth daily as needed. Active NON FORMULARY Administer 1 0 drop to both eyes daily as needed. BLINK EYE DROPS. POLYETHYLENE GLYCOL 400.25% Active NON FORMULARY Take 2 drops 0 by mouth every 8 (eight) hours as needed. CBD OIL Active famotidine (PEPCID) 20 MG Take 20 mg by 3 tablet mouth daily. 8 Active Problems Problem Noted Date Other chest pain 05/08/2018 Psychogenic nonepileptic seizure 04/20/2018 Seizure 01/23/2018 Left sided numbness 01/20/2018 Urinary tract infection without hematuria 11/25/2017 Immunizations Name Administration Dates Next Due FLUCELVAX QUAD PF 04/21/2018 Family History Medical History Relation Name Comments Cancer Brother Lung cancer Brother Hearing loss Father Heart disease Father Hyperlipidemia Father Vision loss Father Dementia Mother Hearing loss Mother Heart disease Mother Hyperlipidemia Mother Mental illness Mother Multiple sclerosis Sister Relation Name Status Comments Brother Father Mother Sister Social History Date Tobacco Use Types Packs/Day [...] Health Maintenance Due Date Last Done Comments CERVICAL CANCER SCREENING 02/23/1977 BREAST CANCER SCREENING 02/23/2006 COLONOSCOPY SCREENING 02/23/2006 SHINGLES VACCINES (#1) 02/23/2006 INFLUENZA VACCINE 01/20/2020 04/21/2018 Results Not on fileafter 11/07/2018 Insurance Type Payer Benefit Subscriber ID Effective Phone Address Plan / Dates Group HMO [employer] xxxxxxxxx [id number] [employer] resent [facility] Advance Directives For more information, please contact: [phone] 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
--- OUTSIDE RECORDS SUMMARY | 2019-11-09 10:01 | XMS REPORT | Continuity of Care Document ---
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 Active Prob chris 01/20/2018 Robbin Siegel Uncomplicated asthma, unspecified asthma severity Active Diagnosis 01/20/2018 Robbin Siegel Reflux esophagitis Active Diagnosis 01/20/2018 Robbin Siegel PTSD (post-traumatic stress disorder) Active Diagnosis 01/20/2018 Robbin Siegel Palpitations Active Diagnosis 01/20/2018 Robbin Siegel Seizure Active Diagnosis 01/20/2018 Robbin Siegel Precordial pain Active Diagnosis 01/20/2018 Robbin Siegel Medications Medication Details Route Status Patient Instructions Ordering Provider Order Date Source Diovan HCT 1 tablet Orally Active 80-12.5 MG Orally Once a day med 09/20/2017 Robbin Siegel Proventil HFA 2 puffs as needed Inhalation Active 108 (90 Base) MCG/ACT Inhalation every 4 hrs Robbin Siegel Ativan 1 tablet at bedtime as needed Orally Active 2 MG Orally Once a day Robbin Siegel Sertraline HCl 1 tablet Orally Active 100 MG Orally Once a da y Robbin Siegel Montelukast Sodium 1 tablet in the evening Orally Active 10 MG Orally Once a day santosh Siegel Advair Diskus not defined Inhalation Active 250-50 MCG/DOSE Inhalation santosh Siegel Metoprolol not defined Orally Active 50 MG Orally Robbin Siegel Amlodipine Besylate 1 tablet Orally Active 5 MG Orally Once a day Robbin Siegel Atenolol 1 tablet Orally Active 25 MG Orally Once a day Robbin Siegel HydrOXYzine HCl 1 tablet 3 jessica es a day and 2 tablets at bed time Orally Active 25 MG Orally DIRECTED Robbin Siegel Lorazepam 1 tablet as needed Orally Active 0.5 MG Orally every 6 hrs Robbin Siegel Omeprazole 1 capsule Orally Active 40 MG Orally Once a day [facility] Diovan HCT 1 tablet Orally Active 80-12.5 MG Orally Once a day [facility] Atenolol 1 tablet Orally Active 25 MG [facility] Allergies, Adverse Reactions, Alerts Substance Category Reaction Severity Reaction type Status Date Reported Comments Source Penicillin Adverse Reaction Info Not Available Adverse Reaction Active 10/19/2017 Robbin Greshammed sulfa Adverse Reaction Info Not Available Adverse Reaction Active 10/19/2017 med [facility] Iodine Adverse Reaction Info Not Available Adverse Reaction Active 10/19/2017 med med steroids Adverse Reaction Info Not Available Ad[facility] Immun[facility] No Data Provided for This Section Results No Data Provided for This Section Pathology Reports No Data Provided for This Section Diagnostic Reports No Data Provided for This Section Consultation Notes No Data Provided for This Section Discharge Summaries No Data Provided for This Section History and Physicals No Data Provided for This Section Vital Signs Vital Sign Value Date Comments Source Weight 184 10/19/2017 Ahmed Ahmed Heart Rate 104 10/19/2017 Ahmed Ahmed Diastolic (mm Hg) 86 10/19/2017 Ahmed Ahmed Systolic (mm Hg) 144 10/19/2017 Ahmed Ahmed Weight 178 05/20/2017 Ahmed Ahmed Heart Rate 96 05/20/2017 Ahmed Ahmed Diastolic (mm Hg) 86 05/20/2017 Ahmed Ahmed Systolic (mm Hg) 122 05/20/2017 Ahmed Ahmed Weight 164 03/18/2017 Ahmed Ahmed Heart Rate 94 03/18/2017 Ahmed Ahmed Diastolic (mm Hg) 82 03/18/2017 Ahmed Ahmed Systolic (mm Hg) 132 03/18/2017 Ahmed Ahmed Weight 164 02/11/2017 Ahmed Ahmed Heart Rate 82 02/11/2017 Ahmed Ahmed Diastolic (mm Hg) 80 02/11/2017 Ahmed Ahmed Systolic (mm Hg) 106 02/11/2017 Ahmed Ahmed Encounters No Data Provided for This Section Procedures No Data Provided for This Section Assessment and Plan No Data Provided for This Section Plan of Care No Data Provided for This Section Social History No Data Provided for This Section Family History No Data Provided for This Section Advance Directives No Data Provided for This Section Functional Status No Data Provided for This Section
--- OUTSIDE RECORDS SUMMARY | 2019-11-09 10:01 | XMS REPORT ---
Author Author John Siegel Organization [employer] Address Unknown Phone Unavailable Care Team Providers Care Casting Tester Name Role Phone Robbin Siegel CP Unavailable [...] End Date Status Dosage HydrOXYzine HCl ND 01886968183 25 MG Orally DIRECTED Active 1 tablet 3 times a day and 2 tablets at bed time Amlodipine Besylate ND 75653513519 5 MG Orally Once a day Active 1 tablet Metoprolol NDC 0 50 MG Orally Active not def ined Atenolol ND 54932146809 25 MG Orally Once a day Act frederick 1 tablet Omeprazole ND 88587765602 40 MG Orally Once a day A ctive 1 capsule Montelukast Sodium ND 41976855552 10 MG Orally Once a day Active 1 tablet in the evening Lorazepam ND 90522404476 0.5 MG Orally every 6 hrs Active 1 tablet as needed Sertraline HCl ND 55605393248 100 MG Orally Once a day Active 1 tablet Ativan ND 14317821878 2 MG Orally Once a day Activ e 1 tablet at bedtime as needed Proventil HFA [facility] 61232563955 108 (90 Base) MCG/ACT Inhalation e very 4 hrs Active 2 puffs as needed Advair Diskus [facility] [address]-23 250-50 MCG/DOSE Inhalation Active not defined Vital Signs Date/Time: Feb 11, 2017 BMI 32.03 Index Weight 164 lbs Height 5'1 in Cardiac Monitoring Heart Rate 82 /min Blood Pressure Diastolic 80 mm Hg Blood Pressure Systolic 106 mm Hg Results No Known Results Summary Purpose [employer] Submission
--- OUTSIDE RECORDS SUMMARY | 2019-11-09 10:01 | XMS REPORT | Clinical Summary ---
Author Author [facility] Address Unknown Phone Unavailable Care Team Providers Care Flat Lock Operator Name Role Phone Sharpless PCP Allergies Comments Active Allergy Reactions Severity Noted Date Unknown reaction Clindamycin 01/20/2016 All steroids-muscle weakness t Corticosteroids 01/20/2016 (Glucocorticoids) Fish Containing Products 10/04/2017 Throat gets tight Iodine And Iodide Itching, Rash High 01/20/2016 Containing Products States it would be fatal Penicillins High 01/20/2016 Shellfish Containing 10/04/2017 Products Sulfa (Sulfonamide Swelling 01/20/2016 Antibiotics) New string of tetanus- went to ER , medication for throat closing up Tetanus Vaccines And Swelling High 6 Toxoid Medications End Date Status Medication Sig Dispensed Refills Start Date Active albuterol HFA (VENTOLIN Inhale 1 puff 0 HFA) 90 mcg/actuation by mouth via inhaler inhaler every 6 (six) hours as needed for Wheezing. Active hydrOXYzine (ATARAX) 25 Take 25 mg by 0 MG tablet mouth 2 (two) times daily Takes one tablet in am and 2 tablets in pm. Active montelukast (SINGULAIR) Take 10 mg by 0 10 mg tablet mouth nightly. Active cetirizine (ZYRTEC) 10 MG Take 10 mg by 0 tablet mouth daily. Active PARoxetine (PAXIL) 20 MG Take 20 mg by 0 tablet mouth every morning. Active losartan (COZAAR) 50 MG Take 50 mg by 0 tablet mouth daily. Active UNKNOWN Place into 0 both eyes 2 (two) times daily Bepotastine besilate opthalamic solution 1.5% BID . Active UNKNOWN Place into 0 both eyes 3 (three) times daily Systane Lubricant eye drops . Active UNKNOWN Place into 0 both eyes 2 (two) times daily Blink gel tears . Active LORazepam (ATIVAN) 0.5 MG Take 0.5 mg 0 tablet by mouth 3 (three) times daily For seizure disorder . Active ergocalciferol (VITAMIN Take 50,000 0 D2) 50,000 unit capsule Units by mouth once a week. Active fluticasone-salmeterol Inhale 2 0 (ADVAIR HFA) 115-21 puffs by mcg/actuation inhaler mouth via inhaler 2 (two) times daily. 12/08/2018 sucralfate (CARAFATE) 1 Take 1 tablet 120 tablet 0 12/08/201 gram tablet (1 g total) 8 by mouth 4 (four) times daily before meals and nightly. 05/14/2019 naproxen (NAPROSYN) 375 Take 1 tablet 20 tablet 0 05/14/201 MG tablet (375 mg 8 total) by mouth 2 (two) times daily with breakfast and dinner. Active Problems Problem Noted Date Seizures 12/07/2017 Chest pain 12/06/2017 Psychogenic nonepileptic seizure 03/18/2016 Seizure 03/16/2016 Seizure disorder 03/08/2016 Hypokalemia 03/08/2016 Hypertension 03/08/2016 GERD (gastroesophageal reflux disease) 03/08/2016 History of asthma 03/08/2016 Acute stress reaction 03/08/2016 History of depression 03/08/2016 Encounters Care Team Description Date Type Specialty Yenifer Rosario DO Psychogenic nonepileptic seizure; Episode of altered consciousness 08/04/2019 Hospital Encounter Yenifer Rosario DO Psychogenic nonepileptic seizure (Primar y Dx); Episode of altered consciousness 07/31/2019 Outside Orders Central Scheduling after 11/07/2018 Social History Date Tobacco Use Types Packs/Day Years Used Never Smoker Smokeless Tobacco: Never Used Alcohol Use Drinks/Week oz/Week Comments No Sex Assigned at Date Recorded Not on file Industry Job Start Date Occupation Not on file Not on file Not on file Travel End Travel History Travel Start No recent travel history available. Last Filed Vital Signs Not on file Plan of Treatment Not on file Procedures Comments Procedure Name Priority Date/Time Associated Diag nosis EEG AWAKE AND DROWSY Routine 08/04/2019 Psychogen ic nonepileptic 2:21 PM CREAM GATHERER seizure Episode of altered consciousness after 11/07/2018 Results * EEG Awake & Drowsy (08/04/2019 2:21 PM CREAM GATHERER) Specimen Narrative Performed At DATE OF TEST: 08-04-2019 GE RIS DATE OF REPORT: 08-04-2019 [id number] ACC: [id number] Start: 1349 Stop: 1421 ICD-10: R56.9 CPT Code: 93811 HISTORY: 64 yo female here for psychogenic nonep ileptic seizures. Patient states many doctors have told her that events are nonepileptic and aren't treating her correctly. She used to have 100-300 per day (per ). Events occur daily, some last ing 30 seconds and others lasting a few minutes. MEDICATIONS: Gabapentin TECHNICAL SUMMARY: This is a digital video EEG recorded wi 32 input channels reviewed with bipolar and referential montages u sing the modified combinatorial system nomenclature. DESCRIPTION OF RECORD: During the maximally alert state a 9-10 Hz posterior dominant rhythm was seen that was symmetric, reactive t o eye opening and well modulated. More anteriorly, low voltage frontocentral beta predominated. Drowsiness was characteri zed by alpha attenuation, increased frontocentral theta and decre ased eye blinks. Stage 2 sleep structures were not seen. HV: Hyperventilation was attempted but patient unable to tolerate. not performed for 3 minutes PHOTIC STIMULATION: Flash stimulation w as performed from 1-3 Hz and led to patient having an event. Photic stimulation was stopped at this point. Events: Clinical: Prolonged events of side to s edie head shaking with asynchronous arm and leg involvement th at waxed and wanted throughout recording. Events could last up to 5 mi nutes. Isolated events of brief bursts of head shaking lasting 1 second were also seen. EEG: No EEG correlate IMPRESSION: Normal Awake and Drowsy EEG Paroxysmal Events (side to side head sh aking and b/l arm and leg movements) EEG: No EEG correlate CLINICAL CORRELATION: This is a normal awake and drowsy EEG. The patient had several clinical events con sisting of side to side head shaking and asynchronous arm and leg sh aking which had no EEG correlate. The clinical semiology of saji events is most consistent with a diagnosis of nonepileptic seizur es. No areas of focal dysfunction or epileptiform discharges were seen. Sean Santos MD, MS Neurophysiology/Epilepsy Attending Procedure Note Interface, External Ris In - 08/04/2019 2:51 PM CREAM GATHERER DATE OF TEST: 08-04-2019 DATE OF REPORT: 08-04-2019 [id number] ACC: [id number] Start: 1349 Stop: 1421 ICD-10: R56.9 CPT Code: 43855 HISTORY: 64 yo female here for psychogenic nonepi leptic seizures. Patient states many doctors have told her that events are nonepileptic and aren't treating her correctly. She used to have 100-300 per day (per ). Events occur daily, some lasting 30 seconds and others lasting a few minutes. MEDICATIONS: Gabapentin TECHNICAL SUMMARY: This is a digital video EEG recorded with 32 input channels reviewed with bipolar and referential montages using the modified combinatorial system nomenclature. DESCRIPTION OF RECORD: During the maximally alert state a 9-10 Hz posterior dominant rhythm was seen that was symmetric, reactive to eye opening and well modulated. More anteriorly, low voltage frontocentral beta predominated. Drowsiness was characterized by alpha attenuation, increased frontocentral theta and decreased eye blinks. Stage 2 sleep structures were not seen. HV: Hyperventilation was attempted but patient unable to tolerate. not performed for 3 minutes PHOTIC STIMULATION: Flash stimulation was performed from 1-3 Hz and led to patient having an event. Photic stimulation was stopped at this point. Events: Clinical: Prolonged events of side to side head shaking with asynchronous arm and leg involvement that waxed and wanted throughout recording. Events could last up to 5 minutes. Isolated events of brief bursts of head shaking lasting 1 second were also seen. EEG: No EEG correlate IMPRESSION: Normal Awake and Drowsy EEG Paroxysmal Events (side to side head shaking and b/l arm and leg movements) EEG: No EEG correlate CLINICAL CORRELATION: This is a normal awake and drowsy EEG. The patient had several clinical events consisting of side to side head shaking and asynchronous arm and leg shaking which had no EEG correlate. The clinical semiology of these events is most consistent with a diagnosis of nonepileptic seizures. No areas of focal dysfunction or epileptiform discharges were seen. Sean Santos MD, MS Neurophysiology/Epilepsy Attending Performing Organization Address City/State/Zipcode Ph one Number GE RIS after 11/07/2018 Insurance Payer Benefit Subscriber ID Type Phone Address Plan / Group MEDICAID - MEDICAID MGD JESSICA xxxxxxxxx Medica id CARE COMM STAR Contracted PLAN [employer] CHOICE COMMUNITY xxxxxxxxxxxx HMO/POS HLTH CHOICE EXCHANGE [phone] Advance Directives For more information, please contact: [facility] [address] [place] [address] Date Inactivated Comments Code Status Date Activated 12/08/2017 5:02 PM Full Code 12/06/2017 7:10 AM This code status was determined by: Patient 10/08/2017 2:35 PM Full Code 10/04/2017 8:44 AM This code status was determined by: Patient 03/18/2016 3:42 PM Full Code 03/16/2016 1:11 PM This code status was determined by: Patient 01/21/2016 3:38 AM Full Code 01/20/2016 7:27 PM This code status was determined by: Patient
--- OUTSIDE RECORDS SUMMARY | 2019-11-09 10:01 | XMS REPORT ---
Author Author John Siegel Organization [employer] Address Unknown Phone Unavailable Care Team Providers Care Granite Worker Name Role Phone Robbin Siegel CP Unavailable [...] Instructions Start Date End Date Status Dosage Proventil HFA [facility] [id number] 108 (90 Base) MCG/ACT Inhalation e very 4 hrs Active 2 puffs as needed Ativan ND 94361278421 2 MG Orally Once a day Activ e 1 tablet at bedtime as needed Sertraline HCl ND 16051764215 100 MG Orally Once a day Active 1 tablet Montelukast Sodium ND 42218409883 10 MG Orally Once a day Active 1 tablet in the evening Advair Diskus [facility] [address]-08 250-50 MCG/DOSE Inhalation Active not defined Metoprolol NDC 0 50 MG Orally Active not def ined Amlodipine Besylate ND 29505752576 5 MG Orally Once a day Active 1 tablet Atenolol ND 09482186651 25 MG Orally Once a day Act frederick 1 tablet HydrOXYzine HCl ND 30893305723 25 MG Orally DIRECTED Active 1 tablet 3 times a day and 2 tablets at bed time Lorazepam [facility] 49352785247 0.5 MG Orally every 6 hrs Active 1 tablet as needed Omeprazole [facility] 94472247831 40 MG Orally Once a day A ctive 1 capsule Vital Signs Date/Time: Mar 18, 2017 BMI 32.03 Index Weight 164 lbs Height 5'1 in Cardiac Monitoring Heart Rate 94 /min Blood Pressure Diastolic 82 mm Hg Blood Pressure Systolic 132 mm Hg Results No Known Results Summary Purpose eClinicalWorks Submission
--- OUTSIDE RECORDS SUMMARY | 2019-11-09 10:02 | XMS REPORT ---
Author Author [facility] t Organization [facility] Address 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 Name Role Phone NONSTAFF PCP Unavailable LAVONNE SAHNI Attphys Unavailable Doctor Unassigned, Name No Attphys Unavailable Draw, Lab Clc-Bls Attphys Unavailable Chito ZAZUETA, Benny Bruno Attphys Unavailable Dakotah Cee MD Attphys KIANNA JACOB Attphys Unavailable DILLAN IBRAHIM Attphys Unavailable CASEYM, MAHBOOB Attphys Unavailable MACO DODD Attphys Unavailable KIANNA JACOB Admphys Unavailable ALAM, MAHBOOB Admphys Unavailable MACO DODD Admphys Unavailable Payers Payer Name Policy Type Policy Number Effective Date Expiration Date [facility] Excha [id number] 2018 00:0 0:00 [facility] Problems Condition Name Condition Details Condition Category Status Onset Date Resolution Date Last Treatment Date Treating Clinician Comments Source Other chest pain Other chest pain Disease Active 2018-05-08 00:00:00 [place] Psychogenic nonepileptic seizure Psychogenic nonepileptic seizur e Disease Active 2018-04-20 00:00:00 [place] Seizure Seizure Disease Active 2018-01-23 00:00:00 Porter Emanuel Left sided numbness Left sided numbness Disease Active 2018-01-20 00:00 :00 [place] Urinary tract infection without hematuria Urinary trac t infection without hematuria Disease Active 2017-11-25 00:00:00 Wes riddle [place] Seizure Seizure Problem Active 2016-01-24 00:00:00 [facility] Angina pectoris Angina pectoris Problem Active 2015-12-23 00:00:00 [facility] Influenza vaccination declined Influenza vaccination declined Disea se Active 2015-04-10 00:00:00 Jairon taylor Chronic low back pain-no surg intervention ; PT ; 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 Diverticulosis; int hemorrhoids per colonoscopy 10/2013 Diverticulosis; int hemorrhoids per colonoscopy 10/2013 Disease Active 2014-05-20 00:00:00 [place] [facility] Asthma Asthma Disease Active 2014-04-10 00:00:00 [place] [facility] Glaucoma suspect Glaucoma suspect Disease Active 2013-12-13 00:00:00 [facility] Dry eye syndrome Dry eye syndrome Disease Active 2013-12-13 00:00:00 [facility] Glaucoma Glaucoma Disease Active 2013-10-13 00:00:00 [facility] Cyst- 1 cm- rt forearm ; non tender Cyst- 1 cm- rt forearm ; non tender Disease Active 2013-10-13 00:00:00 [facility] Bladder spasm Bladder spasm Disease Active 2013-01-19 00:00:00 [facility] Multiple drug allergies Multiple drug allergies Disease Active 2012-11-21 00:00:00 [facility] HISTORY OF HYSTERECTOMY/ BSO; endometriosis HISTORY OF HYSTERECTOMY/ BSO; endometriosis Disease Active 2012-08-23 00:00:00 [facility] Interstitial cystitis Interstitial cystitis Disease Active 201 08-20-21 00:00:00 [facility] Fatty liver Fatty liver Disease Active 2012-08-12 00:00:00 [facility] Hearing impaired- since , ; had tubes early; 1979 last hearing evaluation Hearing impaired- since , ; had tubes early; 1979 last hearing evaluation Disease Active 2012-07-29 00:00:00 [facility] Caregiver stress- daughter 28 yr with TB I needing help and has sz history- pt finds difficult to handle sz Caregiver stress- daughter 28 yr with TB I needing help and has sz history- pt finds difficult to handle sz Disease Ac tive 2012-07-29 00:00:00 [facility] Hyperlipidemia-on diet; rash itching wit h zocor ; started zetia as of 07/2013 - not taking as of 06/2014; allergic to fish/oil Hyperlipidemia-on diet; rash itching with zocor ; started zetia as of 07/2013 -not taking as of 06/2014; allergic to fish/oil Disease Active 2012-07-29 00:00:00 [facility] HTN (hypertension)- taking toprol HTN (hypertension)- taking top rol Disease Active 2012-07-29 00:00:00 [facility] H/O allergy to multiple drugs- ref to allergy speciali st done H/O allergy to multiple drugs- ref to curatorial specialist done Disease Active 2012-07-29 00:00:00 [facility] Non-cardiac chest pain Non-cardiac chest pain Problem Active [facility] Benign hypertensive heart disease without congestive h eart failure Benign hypertensive heart disease without congestive heart failure Active Problem 01/20/2018 Robbin Siegel Problem Active 2018-01-20 02:46 :35 Robbin Siegel Uncomplicated asthma, unspecified asthma severity Uncomplicated asthma, unspecified asthma severity Active Diagnosis 01/20/2018 Robbin Siegel Diagnosis Active 2018-01-20 02:46:35 A hmed Ahmed Reflux esophagitis Refl ux esophagitis Active Diagnosis 01/20/2018 Ahmed Ahmed Diagnosis Active 2018-01-20 02:46:35 Mpmed Mpmed PTSD (post-traumatic stress disorder) PTSD (post- traumatic stress disorder) Active Diagnosis 01/20/2018 Ahmed Ahmed Diagnosis Active 2018-01-20 02:46:35 Robbin Greshammed Palpitations Palp itations Active Diagnosis 01/20/2018 Ahmed Ahmed Diagnosis Active 2018-01-20 02:46:35 A hmed med Seizure Seiz ure Active Diagnosis 01/20/2018 Ahmed Ahmed Diagnosis Active 2018-01-20 02:46:35 Mpmed Mpmed Precordial pain Prec ordial pain Active Diagnosis 01/20/2018 Ahmed med Diagnosis Active 2018-01-20 02:46:35 Robbin Greshammed Allergies, Adverse Reactions, Alerts Allergy Name Allergy Type Status Severity Reaction(s) Onset Date Inacti ve Date Treating Clinician Comments Source shellfish derived FA Active SV 2018-04-25 00:00:00 [facility] BLOOD THINNERS DA Active U 2018-04-25 00:00:00 [facility] STEROIDS DA Active [place] 2018-04-25 00:00:00 [facility] shellfish derived DA Active SV 2018-04-25 00:00:00 [facility] Nitrofurantoin Monohyd/M-Cryst Propensity to adverse reactions to d rug Active 2018-04-20 00:00:00 hemal Emanuel Clindamycin Propensity to adverse reactions to drug Active Itching 2017-11-25 00:00:00 Porter cool sulfa sulfa Active Info Not Available 2017-10-19 00:00:00 [facility] Iodine Iodine Active Info Not Available 2017-10-19 00:00:00 [facility] steroids steroids Active Info Not Available 2017-10-19 00:00:00 [facility] Shellfish Containing Products Propensity to adverse reactions to dr ug Active Rash 2017-10-04 00:00:00 Porter Emanuel Lincomycin Propensity to adverse reactions to drug Active Rash 2017-09-15 00:00:00 Porter cool tetanus and diphtheria toxoids DA Active SV 2017-08-01 00: 00:00 [facility] penicillin G DA Active SV 2017-08-01 00:00:00 [facility] Sulfa (Sulfonamide Antibiotics) DA Active [place] 2016-06-17 00 :00:00 [facility] iodine DA Active [place] 2016-06-17 00:00:00 [facility] benzonatate DA Active [place] 2016-06-17 00:00:00 [facility] aminocaproic acid DA Active MO 2016-06-17 00:00:00 [facility] clindamycin DA Active [place] 2016-06-17 00:00:00 [facility] ciprofloxacin DA Active MO 2016-06-17 00:00:00 [facility] cyclobenzaprine DA Active MO 2016-06-17 00:00:00 [facility] brimonidine DA Active MO 2016-06-17 00:00:00 [facility] Tetanus Vaccines and Toxoid DA Active [place] 2016-06-17 00:00: 00 [facility] codeine DA Active [place] 2016-06-17 00:00:00 [facility] albuterol DA Active [place] 2016-06-17 00:00:00 [facility] STERIODS DA Active [place] 2016-06-17 00:00:00 [facility] Sulfa (Sulfonamide Antibiotics) Allergy to Substance Active Unkno wn 2016-05-16 00:00:00 [facility] Niacin Allergy to Substance Active Unknown 2016-05-16 00:00:00 [facility] Albuterol Allergy to Substance Active Unknown 2016-05-16 00:00:00 [facility] Neomycin Allergy to Substance Active Unknown 2016-05-16 00:00:00 [facility] Clindamycin Allergy to Substance Active Unknown 2016-05-16 00:00:0 0 [facility] Mupirocin Allergy to Substance Active Unknown 2016-05-16 00:00:00 [facility] Budesonide Allergy to Substance Active Unknown 2016-05-16 00:00:00 [facility] Buspirone Allergy to Substance Active Unknown 2016-05-16 00:00:00 [facility] Phenazopyridine Allergy to Substance Active Unknown 2016-05-16 00: 00:00 [facility] Fluticasone Allergy to Substance Active Unknown 2016-05-16 00:00:0 0 [facility] Citalopram Allergy to Substance Active Unknown 2016-05-16 00:00:00 [facility] Formoterol Allergy to Substance Active Unknown 2016-05-16 00:00:00 [facility] Mirtazapine Allergy to Substance Active Unknown 2016-05-16 00:00:0 0 [facility] Corticosteroids (Glucocorticoids) Propensity to adverse reac tions to drug Active Rash 2016-01-20 00:00:00 Unknown re action [place] Iodine And Iodide Containing Products Propensity to adverse reactions to drug Active Shortness Of Breath 2016-01-20 00:00:00 Unknown reaction [place] Penicillins Propensity to adverse reactions to drug Active Shortness Of Breath 2016-01-20 00:00:00 [place] Sulfa (Sulfonamide Antibiotics) Propensity to adverse reactions to drug Active Rash 2016-01-20 00:00:00 unknown Houst[place]on gonzalez [place] Tetanus Vaccines And Toxoid Propensity to adverse reactions to drug Active Rash 2016-01-20 00:00:00 Unknown reaction [place] phenylephrine HCl Allergy to Substance Active Unknown 2015-12-20 8 00:00:00 [facility] pseudoephedrine HCl Allergy to Substance Active Unknown 2015-12 00:00:00 [facility] iodine Allergy to Substance Active Unknown 2016-01-06 00:00:00 [facility] brimonidine tartrate Allergy to Substance Active Unknown 2016-01-06 00:00:00 [facility] Penicillin Allergy to Substance Active Unknown 2016-01-06 00:00:00 [facility] Tetanus Vaccines and Toxoid Allergy to Substance Active Unknown 2016-01-06 00:00:00 [facility] Shellfish Allergy to Substance Active Unknown 2016-01-06 00:00:00 [facility] Guaifenesin Allergy to Substance Active Unknown 2016-01-06 00:00:0 0 [facility] Misoprostol Allergy to Substance Active Unknown 2016-01-06 00:00:0 0 [facility] Alprazolam Allergy to Substance Active Unknown 2016-01-06 00:00:00 [facility] Codeine Allergy to Substance Active Unknown 2016-01-06 00:00:00 [facility] Hydrocodone Allergy to Substance Active Unknown 2016-01-06 00:00:0 0 [facility] Benzonatate Allergy to Substance Active Unknown 2016-01-06 00:00:0 0 [facility] Pilocarpine Allergy to Substance Active Unknown 2016-01-06 00:00:0 0 [facility] Pseudoephedrine Allergy to Substance Active Unknown 2016-01-06 00: 00:00 [facility] aminocaproic acid Allergy to Substance Active Unknown 2015-12-20 8 00:00:00 [facility] Prednisone Allergy to Substance Active Unknown 2016-01-06 00:00:00 [facility] Triamcinolone Allergy to Substance Active Unknown 2016-01-06 00:00 :00 [facility] Ibuprofen Allergy to Substance Active Unknown 2016-01-06 00:00:00 [facility] Naproxen Allergy to Substance Active Unknown 2016-01-06 00:00:00 [facility] Cephalexin Allergy to Substance Active Unknown 2016-01-06 00:00:00 [facility] Cefaclor Allergy to Substance Active Unknown 2016-01-06 00:00:00 [facility] Doxycycline Allergy to Substance Active Unknown 2016-01-06 00:00:0 0 [facility] Erythromycin base Allergy to Substance Active Unknown 2015-12-20 8 00:00:00 [facility] Sulfamethoxazole Allergy to Substance Active Unknown 2016-01-06 00:00:00 [facility] Nitrofurantoin Allergy to Substance Active Unknown 2016-01-06 00:0 0:00 [facility] Trimethoprim Allergy to Substance Active Unknown 2016-01-06 00:00: 00 [facility] Ciprofloxacin Allergy to Substance Active Unknown 2016-01-06 00:00 :00 [facility] Famotidine Allergy to Substance Active Unknown 2016-01-06 00:00:00 [facility] Cefuroxime Allergy to Substance Active Unknown 2016-01-06 00:00:00 [facility] Clarithromycin Allergy to Substance Active Unknown 2016-01-06 00:0 0:00 [facility] Simvastatin Allergy to Substance Active Unknown 2016-01-06 00:00:0 0 [facility] Metoprolol Allergy to Substance Active Unknown 2016-01-06 00:00:00 [facility] Azithromycin Allergy to Substance Active Unknown 2016-01-06 00:00: 00 [facility] Loratadine Allergy to Substance Active Unknown 2016-01-06 00:00:00 [facility] Fluvastatin Allergy to Substance Active Unknown 2016-01-06 00:00:0 0 [facility] Clemastine Allergy to Substance Active Unknown 2016-01-06 00:00:00 [facility] Fluoxetine Allergy to Substance Active Unknown 2016-01-06 00:00:00 [facility] Dicyclomine Allergy to Substance Active Unknown 2016-01-06 00:00:0 0 [facility] Flavoxate Allergy to Substance Active Unknown 2016-01-06 00:00:00 [facility] Diphenhydramine Allergy to Substance Active Unknown 2016-01-06 00: 00:00 [facility] Polymyxin b Allergy to Substance Active Unknown 2016-01-06 00:00:0 0 [facility] Ipratropium Allergy to Substance Active Unknown 2016-01-06 00:00:0 0 [facility] Latanoprost Allergy to Substance Active Unknown 2016-01-06 00:00:0 0 [facility] Fexofenadine Allergy to Substance Active Unknown 2016-01-06 00:00: 00 [facility] Brimonidine Allergy to Substance Active Unknown 2016-01-06 00:00:0 0 [facility] Zafirlukast Allergy to Substance Active Unknown 2016-01-06 00:00:0 0 [facility] Valsartan Allergy to Substance Active Unknown 2016-01-06 00:00:00 [facility] cerivastatin Allergy to Substance Active Unknown 2016-01-06 00:00: 00 [facility] Rofecoxib Allergy to Substance Active Unknown 2016-01-06 00:00:00 [facility] Latex Allergy to Substance Active Unknown 2016-01-06 00:00:00 [facility] Levocetirizine Allergy to Substance Active Unknown 2016-01-06 00:0 0:00 [facility] Neuromuscular Blockers, Steroidal Allergy to Substance Active Unk nown 2015-06-17 00:00:00 [facility] Acetaminophen Allergy to Substance Active Unknown 2015-06-17 00:00 :00 [facility] Diclofenac Allergy to Substance Active Unknown 2015-06-17 00:00:00 [facility] Cyclobenzaprine Allergy to Substance Active Unknown 2015-06-17 00: 00:00 [facility] ALBUTEROL PILL FORM Allergy to Substance Active Unknown 2015-05 00:00:00 [facility] STEROIDS Allergy to Substance Active Unknown 2015-06-17 00:00:00 [facility] Zafirlukast Propensity to adverse reactions to drug Active 2014-03-08 00:00:00 [facility] Flavoxate Hcl Propensity to adverse reactions to drug Active 2014-03-08 00:00:00 [facility] Brimonidine Tartrate Propensity to adverse reactions to drug Active 2013-12-13 00:00:[address] [facility] Latanoprost Propensity to adverse reactions to drug Active 2013-12-13 00:00:[address] [facility] Latex, Natural Rubber Propensity to adverse reactions to drug Active 2013-03-10 00:00:00 [facility] Cerivastatin Propensity to adverse reactions to drug Active Rash, Itching 2013-02-27 00:00:00 [facility] Qqnoewsg-Iukkkvkmr-Ww Propensity to adverse reactions to drug Active Itching 2013-02-27 00:00:00 [facility] Fluoxetine Propensity to adverse reactions to drug Active Rash, Itching 2012-09-21 00:00:00 laryngoedema [facility] Metoprolol Tartrate Propensity to adverse reactions to drug Active Rash 2012-08-02 00:00:00 [facility] Tetanus Vaccines And Toxoid Propensity to adverse reactions to drug Active Rash, Itching, Swelling 2012-08-02 00:00:00 [facility] states went to ED for allergic reaction to Tdap. [facility] Fexofenadine Propensity to adverse reactions to drug Active Rash, Itching 2012-07-29 00:00:00 [facility] Diclofenac-Misoprostol Propensity to adverse reactions to drug Acti ve Rash, Itching 2012-07-29 00:00:00 [facility] Sulfamethoxazole-Trimethoprim Propensity to adverse reactions to dr ug Active Rash, Itching 2012-07-29 00:00:00 [facility] Diphenhydramine Hcl Propensity to adverse reactions to drug Active Breathing problems, Rash, Itching 2012-07-29 00:00:00 [facility] Dicyclomine Propensity to adverse reactions to drug Active Rash, Itching 2012-07-29 00:00[facility] Propensity to adverse reactions to drug Active Rash, Itching 2012-07-29 00:00:00 [facility] Cefaclor Propensity to adverse reactions to drug Active Rash, Itching 2012-07-29 00:00:00 [facility] Cefuroxime Axetil Propensity to adverse reactions to drug Active Rash, Itching 2012-07-29 00:00:00 [facility] katty Cephalexin Propensity to adverse reactions to drug Active Rash, Itching, Swelling 2012-07-29 00:00:00 [facility] Ciprofloxacin Propensity to adverse reactions to drug Active Rash, Itching 2012-07-29 00:00:00 [facility] Loratadine Propensity to adverse reactions to drug Active Rash, Itching, Angioedema 2012-07-29 00:00:00 [facility] katty Codeine Propensity to adverse reactions to drug Active Rash, Itching 2012-07-29 00:00:00 [facility] Valsartan Propensity to adverse reactions to drug Active Rash, Itching 2012-07-29 00:00:00 [facility] Doxycycline Propensity to adverse reactions to drug Active Itching 2012-07-29 00:00:00 [facility] Phenylephrine-Guaifenesin Propensity to adverse reactions to drug A ctive Rash, Itching 2012-07-29 00:00:00 [facility] Erythromycin Lactobionate Propensity to adverse reactions to drug A ctive Rash, Itching 2012-07-29 00:00:00 [facility] Erythromycin (Bulk) Propensity to adverse reactions to drug Active Rash, Itching, Angioedema 2012-07-29 00:00:00 [facility] Iodine And Iodide Containing Products Propensity to adverse reactions to drug Active Hives, Itching, Swelling 2012-07-29 00:00:00 [facility] Fluvastatin Propensity to adverse reactions to drug Active Rash, Itching 2012-07-29 00:00:00 [facility] Hydrocodone-Acetaminophen Propensity to adverse reactions to drug A ctive Rash, Itching 2012-07-29 00:00:00 [facility] Nitrofurantoin Monohyd/M-Cryst Propensity to adverse reactions to d rug Active Rash, Itching 2012-07-29 00:00:00 [facility] Nitrofurantoin Macrocrystalline Propensity to adverse reactions to drug Active Rash, Itching 2012-07-29 00:00:00 [facility] Ibuprofen Propensity to adverse reactions to drug Active Rash, Itching 2012-07-29 00:00:00 [facility] Guaifenesin Propensity to adverse reactions to drug Active Rash, Itching 2012-07-29 00:00:00 [facility] Triamcinolone Acetonide Propensity to adverse reactions to drug Act frederick Itching, Other 2012-07-29 00:00:[address] [facility] Neuromuscular Blockers, Steroidal Propensity to adverse reac tions to drug Active Other 2012-07-29 00:00:[address] [facility] Penicillins Propensity to adverse reactions to drug Active Anaphylaxis 2012-07-29 00:00:00 [facility] Famotidine Propensity to adverse reactions to drug Active Rash, Itching 2012-07-29 00:00:00 [facility] Prednisone Propensity to adverse reactions to drug Active Rash, Itching 2012-07-29 00:00:00 [facility] Shellfish Containing Products Propensity to adverse reactions to dr ug Active Hives, Itching, Swelling 2012-07-29 00:00:00 [facility] Sulfa (Sulfonamide Antibiotics) Propensity to adverse reactions to drug Active Rash, Itching, Swelling 2012-07-29 00:00:00 [facility] Clemastine Propensity to adverse reactions to drug Active Rash, Itching 2012-07-29 00:00:00 [facility] Rofecoxib Propensity to adverse reactions to drug Active Rash, Itching 2012-07-29 00:00:00 [facility] Alprazolam Propensity to adverse reactions to drug Active Rash, Itching 2012-07-29 00:00:00 [facility] Levocetirizine Propensity to adverse reactions to drug Active Rash, Itching 2012-07-29 00:00:00 [facility] Azithromycin Propensity to adverse reactions to drug Active Rash, Itching 2012-07-29 00:00:00 itching of the throa t, tightness in the neck, chest pain, and heavy breathing; last dose was 04/02/2015; stated she only took [address] [facility] Simvastatin Propensity to adverse reactions to drug Active Rash, Itching 2012-07-29 00:00:00 [facility] Family History Family Member Diagnosis Comments Start Date Stop Date Source Natural brother Cancer [facility] ethodist Natural brother Lung cancer [place] Natural father Hearing loss [place] Natural father Heart disease [place] Natural father Hyperlipidemia [place] Natural father Vision loss [facility] ethodist Natural father Cancer [facility] Natural father [facility] Natural mother Dementia [facility] thodist Natural mother Hearing loss [place] Natural mother Heart disease [place] [facility] [place] Hyperlipidemia [place] Mental illness [place] Natural sister Multiple sclerosis [facility] Social History Social Habit Start Date Stop Date Quantity Comments Source Sex Assigned At [facility] Alcohol intake 2016-01-09 00:00:00 2016-01-09 00:00:00 [facility] Smoking Status Start Date Stop Date Source Never smoker [facility] Medications Ordered Medication Name Filled Medication Name Start Date Stop Da te Current Medication? Ordering Clinician Indication Dosage Frequency Signature (SIG) Comments Components Source hydrOXYzine (ATARAX) 25 MG tablet 2018-05-11 18:27:00 Yes 50mg QD Take 50 mg by mouth every evening. Porter hernandez albuterol (PROAIR HFA,PROVENTIL HFA,VENTOLIN HFA) 90 mcg/act uation inhaler 2018-05-11 18:27:00 Yes 2{puff} Q6H Inhale 2 puffs every 6 (six) hours as needed (RESCUE INHALER). Porter king acetaminophen (TYLENOL) 500 MG tablet 2018-05-11 18:27:00 Y es 500mg Q6H Take 500 mg by mouth every 6 (six) hours as needed for mild pain. Porter Emanuel sertraline (ZOLOFT) 100 MG tablet 2018-05-11 18:27:00 Yes 100mg QD Take 100 mg by mouth nightly. Porter Methtracy king gabapentin (NEURONTIN) 300 mg capsule 2018-05-11 18:27:00 Yes 300mg [id number] Take 300 mg by mouth 3 (three) times a day. Porter Emanuel acetaminophen-codeine (TYLENOL WITH CODEINE #3) 300-30 mg pe r tablet 2018-05-11 18:27:00 Yes 1{tbl} Q6H Take 1 tablet by mouth every 6 (six) hours as needed for moderate pain. Sujata Emanuel omeprazole (PriLOSEC) 40 MG capsule 2018-05-11 18:27:00 Yes 40mg QD Take 40 mg by mouth daily. Porter Emanuel dicyclomine (BENTYL) 10 MG capsule 2018-05-11 18:27:00 Y es 10mg [id number] Take 10 mg by mouth 3 (three) times a day. Porter Emanuel amLODIPine (NORVASC) 5 mg tablet 2018-05-11 18:27:00 Yes 5mg QD Take 5 mg by mouth daily. Proter Emanuel hydroCHLOROthiazide (HYDRODIURIL) 25 MG tablet 2018-05-11 18:27: 00 Yes 25mg QD Take 25 mg by mouth daily. Shireen Emanuel metFORMIN (GLUCOPHAGE) 1,000 mg tablet 2018-05-11 18:27:00 Yes 1000mg Q.5D Take 1,000 mg by mouth 2 (two) times a day with meals. Porter Emanuel fexofenadine (MAXI) 180 MG tablet 2018-05-11 18:27:00 Ye rell 180mg Q24H Take 180 mg by mouth daily as needed. Wes Emanuel NON FORMULARY 2018-05-11 18:27:00 Yes 1[dr esteves] Q24H Administer 1 drop to both eyes daily as needed. BLINK EYE DROPS. POLYETHYLENE GLYCOL 400.25% Porter Emanuel NON FORMULARY 2018-05-11 18:27:00 Yes 2[dr esteves] Q8H Take 2 drops by mouth every 8 (eight) hours as needed. CBD OIL Porter Emanuel famotidine (PEPCID) 20 MG tablet 2018-04-23 00:00:00 Yes 20mg QD Take 20 mg by mouth daily. Porter Emanuel Proventil HFA 2018-01-20 02:46:35 Yes Robbin Greshammed 2 puffs as needed Robbin Siegel Ativan 2018-01-20 02:46:35 Yes Ahmed Mpmed 1 tablet at bedtime as needed Robbin Siegel Sertraline HCl 2018-01-20 02:46:35 Yes Ahmed Mpmed 1 tablet Robbin Siegel Montelukast Sodium 2018-01-20 02:46:35 Yes Ahmed Ahmed 1 tablet in the evening Ahmed Robbin Advair Diskus 2018-01-20 02:46:35 Yes Ahmed Ahmed not defined Ahmed Mpmed Metoprolol 2018-01-20 02:46:35 Yes Mpmed Mpmed no t defined Ahmed Mpmed Amlodipine Besylate 2018-01-20 02:46:35 Yes Ahmed Ahmed 1 tablet Robbin Siegel Atenolol 2018-01-20 02:46:35 Yes Ahmed Mpmed 1 ta blet Ahmed Mpmed HydrOXYzine HCl 2018-01-20 02:46:35 Yes Ahmed Ahmed 1 tablet 3 times a day and 2 tablets at bed time Robbin Lundy ed Lorazepam 2018-01-20 02:46:35 Yes Ahmed Mpmed 1 t ablet as needed Ahsantosh Greshammed Omeprazole 2018-01-20 02:46:35 Yes Ahmed Ahmed 1 capsule Robbin Siegel Diovan HCT 2018-01-20 02:46:35 Yes Ahmed Ahmed 1 tablet Ahmed Ahmed Atenolol 2018-01-20 02:46:35 Yes Ahmed Ahmed 1 ta blet Robbin Greshammed losartan (COZAAR) 50 MG tablet 2017-11-13 00:00:00 Yes 50mg QD Take 50 mg by mouth every morning. [place] [facility] cetirizine (ZyrTEC) 10 MG tablet 2017-11-11 00:00:00 Yes 10mg QD Take 10 mg by mouth every morning. [place] [facility]ist VITAMIN D2 50,000 unit capsule 2017-11-11 00:00:00 Yes [id number] Q1W Take 50,000 Units by mouth every 7 days. Pt takes on Wednesday [place] hydrOXYzine (ATARAX) 25 MG tablet 2017-11-11 00:00:00 Yes 25mg QD Take 25 mg by mouth every morning. [facility] wseleydavidst LORAZepam (ATIVAN) 0.5 MG tablet 2017-11-01 00:00:00 Yes 1.5mg Q.[id number] Take 1.5 mg by mouth 3 (three) times a day. [place] montelukast (SINGULAIR) 10 mg tablet 2017-10-31 00:00:00 Ye s 10mg QD Take 10 mg by mouth every evening[facility] ADVAIR HFA 115-21 mcg/actuation inhaler 2017-09-25 00:00:00 Yes 2{puff} Q.5D Inhale 2 puffs 2 (two) times a day. [place] Diovan HCT 2017-09-20 00:00:00 Yes Ahmed Ahmed 1 tablet Robbin Siegel clonazePAM (KLONOPIN) 1 mg tablet 2016-01-09 00:00:00 Yes JARON (generalized anxiety disorder) 1mg Q.5D Take 1 tablet by mouth [address] [facility] Amlodipine Besylate (Norvasc) 5 Mg Tab, 5 Mg Oral Amlo dipine Besylate (Norvasc) 5 Mg Tab, 5 Mg Oral 2015-12-25 00:00:00 2019-05-30 00:00:00 No Ancelmo mcgee Md 5 Daily [facility] Aspirin 81 Mg Tabec, 81 Mg Oral Aspirin 81 Mg Tabec, 81 Mg O ral 2015-12-25 00:00:2019-05-30 00:00:00 No Ancelmo Vazquez Md 81 Every Mo rning [facility] Colesevelam Hcl (Welchol) 625 Mg Tablet, 1875 Mg Oral Colesevelam Hcl (Welchol) 625 Mg Tablet, 1875 Mg Oral 2015-12-25 00:00:00 2019-05-30 00:00:00 No Ancelmo Vazquez Md 1875 Twice Daily With Meals [facility] Pantoprazole Sod (Protonix) 40 Mg/Ml Susp, 40 Mg Oral Pantoprazole Sod (Protonix) 40 Mg/Ml Susp, 40 Mg Oral 2015-12-25 00:00:00 2019-05-30 00:00:00 No Ancelmo Vazquez Md 40 Daily [facility] theophylline (THEOCHRON) 100 mg extended release tablet 2015-05-30 00:00:00 Yes Asthmatic bronchitis, severe persistent, with acute ex acerbation 100mg QD Take 1 tablet by mouth daily. [facility] hydrOXYzine (ATARAX) 25 mg tablet 2015-05-23 00:00:00 Yes Anxiety state, unspecified Take 1 tab in the morning and 2 tabs [address] bedtim eCoy [facility] artificial tears (LACRI-LUBE) 56.8-42.5 % Oint 2015-05-17 00 :00:00 Yes Eye pain, bilateral Instill in each eye As directed. [facility] traMADol (ULTRAM) 50 mg tablet 2015-02-28 00:00:00 Yes Right-sided low back pain without sciatica 50mg Take 1 tablet by mouth every 6 hours as needed for Pain. [facility] Nebulizer & Compressor For Neb Marie 2015-01-14 00:00:00 Yes Asthma by Misc.(Non-Drug; Combo Route) route. [facility] nystatin (NYSTOP) 100,000 unit/gram topical powder 2014-12 00:00:00 Yes Intertrigo Apply to affected area [address] [facility] nystatin (MYCOSTATIN) topical cream 2015-01-08 00:00:00 Yes Intertrigo Q.5D Apply to affected area [address] [facility] traMADol (ULTRAM) 50 mg tablet 2014-12-03 00:00:00 Yes Caries 50mg Take 1 tablet by mouth every 6 hours as needed for Pain. [facility] metoprolol (TOPROL XL) 50 mg extended release tablet 2 00:00:00 Yes HTN (hypertension) 50mg QD Take 1 tablet by mouth daily. [facility] cyclobenzaprine (FLEXERIL) 10 mg tablet 2014-11-22 00:00:00 Yes Musculoskeletal pain 10mg Take 1 tablet by mo uth 2 times daily as needed for Muscle Spasms. [facility] naproxen (NAPROSYN) 375 mg tablet 2014-11-06 00:00:00 Ye s Back pain 375mg Take 1 tablet by mouth 2 times daily as needed for Pain. [facility] albuterol (PROVENTIL) 2.5 mg /3 mL (0.083 %) nebulizer solut ion 2014-09-27 00:00:00 Yes Asthma 2.5mg Inhale 3 m L by mouth every 4 hours as needed for Wheezing or Shortness of Breath. [facility] ezetimibe (ZETIA) 10 mg tablet 2014-09-19 00:00:00 Yes 10mg QD Take 1 tablet by mouth daily. [facility] aminocaproic acid (AMICAR) 25 % syrup 2014-08-22 00:00:00 Y es take 16ml by mouth swish around in your mouth for 2 minutes and then spit out. take every 4 hours for 1 to [address] [facility] albuterol (PROVENTIL HFA) 90 mcg/actuation inhaler 2014-05 00:00:00 Yes Asthma 2{puff} Inhale 2 Puffs by mouth 4 ti mes daily as needed for Wheezing. [facility] EPINEPHrine (EPIPEN 2-ERIC) 0.3 mg/0.3 mL (1:1,000) injection 2014-05-30 00:00:00 Yes Itching .3mg Inject 0.3 mL intramuscularly as needed for Anaphylaxis. [facility] benzonatate (TESSALON PERLES) 100 mg capsule 2014-05-30 00:0 0:00 Yes Sorethroat 100mg Take 1 capsule by mo uth 3 times daily as needed for up to [address] [facility] ipratropium (ATROVENT) 0.02 % nebulizer solution 2014-05-03 00:00:00 Yes Asthmatic bronchitis .5mg Inhale 2.5 mL by mouth [address] [facility] Nebulizer & Compressor For Neb Marie 2014-04-10 00:00:00 Yes Asthma by [facility].(Non-Drug; Combo Route) route. [facility] albuterol (PROVENTIL) 2 mg tablet 2014-02-22 00:00:00 Yes Asthmatic bronchitis 2mg Take 1 tablet by sofia th 3 times daily as needed for Other (prn for shortness of breath). [facility] pilocarpine (ISOPTO CARPINE) 1 % ophthalmic solution 00:00:00 Yes Glaucoma suspect 1[drp] Instill 1 Drop in each eye [address] [facility] brimonidine (ALPHAGAN P) 0.15 % ophthalmic solution 10-27 00:00:00 Yes 1[drp] Q.5D Instill 1 Drop in each eye [address] [facility] latanoprost (XALATAN) 0.005 % ophthalmic solution 2013-10-17 00:00:00 Yes instill 1 drop into both eyes every night at [facility] peak flow meter 2013-10-13 00:00:00 Yes Asth ma by [facility].(Non-Drug; Combo Route) route. [facility] niacin, antihyperlipidemic, (NIASPAN) 500 mg extended releas e tablet 2013-04-26 00:00:00 Yes Hyperlipidemia 500mg Take 1 tablet by mouth at bedtime. [facility] Cetirizine Hcl 10 Mg Tablet Cetirizine Hcl 10 Mg Tablet Yes Daily [facility] Dicyclomine Hcl 20 Mg Tablet Dicyclomine Hcl 20 Mg Tablet Y es [address] [facility] Famotidine 20 Mg Tab Famotidine 20 Mg Tab Yes 20 Bedtime [facility] Gabapentin 400 Mg Capsule Gabapentin 400 Mg Capsule Yes [address] [facility] Hydrochlorothiazide 25 Mg Tablet Hydrochlorothiazide 25 Mg Tablet Yes 25 Daily [facility] Mirtazapine 15 Mg Tab Mirtazapine 15 Mg Tab Yes 7.5 Bedtime [facility] Montelukast Sodium 10 Mg Tablet Montelukast Sodium 10 Mg Tablet Yes 10 Daily [facility] Omeprazole 40 Mg Capsule. Omeprazole 40 Mg Capsule. Yes Daily [facility] Sertraline Hcl 50 Mg Tablet Sertraline Hcl 50 Mg Tablet Yes 25 Daily [facility] Smx/Tmp Smx/Tmp Yes 1 Twice A Day [facility] Amitriptyline Hcl 10 Mg Tablet, 10 Mg Oral Amitriptyli ne Hcl 10 Mg Tablet, 10 Mg Oral 2019-06-07 00:00:00 No 10 Bedtime [facility] Hydroxyzine Hcl 25 Mg Tablet, 25 Mg Oral Hydroxyzine H cl 25 Mg Tablet, 25 Mg Oral 2019-06-07 00:00:00 No 25 Twice A Day [facility] Mirtazapine 15 Mg Tab, 15 Mg Oral Mirtazapine 15 Mg Tab, 15 Mg O ral 2019-06-07 00:00:00 No 15 Bedtime [facility] Albuterol Sulfate (Proventil Hfa) 6.7 Gm Hfa.aer.ad, 2 Dose Inhalation Albuterol Sulfate (Proventil Hfa) 6.7 Gm Hfa.aer.ad, 2 Dose Inhalation 2019-05-30 00:00:00 No 2 Four Times Daily as needed for Wheezing [facility] Albuterol Sulfate (Proventil Hfa) 6.7 Gm Hfa.aer.ad, A lbuterol Sulfate (Proventil Hfa) 6.7 Gm Hfa.aer.ad, 2019-05-30 00:00:00 No [facility] Albuterol Sulfate (Proventil Hfa) 6.7 Gm Hfa.aer.ad, A lbuterol Sulfate (Proventil Hfa) 6.7 Gm Hfa.aer.ad, 2019-05-30 00:00:00 No [facility] Atorvastatin Calcium 10 Mg Tablet, 10 Mg Oral Atorvast atin Calcium 10 Mg Tablet, 10 Mg Oral 2019-05-30 00:00:00 No 10 Today At 9:0 0PM [facility] Baclofen 10 Mg Tablet, 10 Mg Oral Baclofen 10 Mg Tablet, 10 Mg O ral 2019-05-30 00:00:00 No 10 Bedtime [facility] Carboxymethylcellulos/Glycerin (Refresh Optive Eye Noah ps) 15 Ml Drops, Carboxymethylcellulos/Glycerin (Refresh Optive Eye Drops) 15 Ml Drops, 2019-05-30 00:00:00 No [facility] Clonazepam 1 Mg Tablet, 1 Mg Oral Clonazepam 1 Mg Tablet, 1 Mg O ral 2019-05-30 00:00:00 No 1 Twice A Day [facility] Clonazepam 0.5 Mg Tablet, 0.5 Mg Oral Clonazepam 0.5 Mg Tablet, 0.5 Mg Oral 2019-05-30 00:00:00 No .5 Daily [facility] Clonazepam 1 Mg Tablet, 1 Mg Oral Clonazepam 1 Mg Tablet, 1 Mg O ral 2019-05-30 00:00:00 No 1 Bedtime [facility] Fluticasone/Salmeterol (Advair Hfa 115-2 1 Mcg Inhaler) 12 Gm Hfa.aer.ad, 1 Inh Inhalation Fluticasone/Salmeterol (Advair Hfa 115-2 1 Mcg Inhaler) 12 Gm Hfa.aer.ad, 1 Inh Inhalation 2019-05-30 00:00:00 No 1 Twice A Day [facility] Fluticasone/Salmeterol (Advair Hfa 115-2 1 Mcg Inhaler) 12 Gm Hfa.aer.ad, 1 Inh Inhalation Fluticasone/Salmeterol (Advair Hfa 115-2 1 Mcg Inhaler) 12 Gm Hfa.aer.ad, 1 Inh Inhalation 2019-05-30 00:00:00 No 1 Twice A Day [facility] Fluticasone/Salmeterol (Advair Hfa 115-21 Mcg Inhaler) 12 Gm Hfa.aer.ad, Fluticasone/Salmeterol (Advair Hfa 115-21 Mcg Inhaler) 12 Gm Hfa.aer.ad, 2019-05-30 00:00:00 No [facility] Hydroxyzine Hcl 25 Mg Tablet, 50 Mg Oral Hydroxyzine H cl 25 Mg Tablet, 50 Mg Oral 2019-05-30 00:00:00 No 50 Bedtime [facility] Hydroxyzine Hcl 25 Mg Tablet, 25 Mg Oral Hydroxyzine H cl 25 Mg Tablet, 25 Mg Oral 2019-05-30 00:00:00 No 25 Daily [facility] Metoprolol Succinate 50 Mg Tab.er.24h, 50 Mg Oral Meto prolol Succinate 50 Mg Tab.er.24h, 50 Mg Oral 2019-05-30 00:00:00 No 50 D aily [facility] Montelukast Sodium 10 Mg Tablet, 10 Mg Oral Montelukas t Sodium 10 Mg Tablet, 10 Mg Oral 2019-05-30 00:00:00 No 10 Daily [facility] Omeprazole 40 Mg Capsule., 40 Mg Oral Omeprazole 40 Mg Cap prateek.dr, 40 Mg Oral 2019-05-30 00:00:00 No 40 Daily [facility] Theophylline Anhydrous (Willam-24) 100 Mg Cap.er.24h, 10 0 Mg Oral Theophylline Anhydrous (Willam-24) 100 Mg Cap.er.24h, 100 Mg Oral 2019-05-30 00:00:0 0 No 100 Daily [facility] Immunizations Ordered Immunization Name Filled Immunization Name Date Status Comments Source FLUCELVAX QUAD PF 2018-04-21 00:00:00 Completed [place] Influenza Vaccine 2015-05-30 00:00:[address] [facility] Ipratropium 0.02t (2.5ml) 2014-07-26 00:00:[address] [facility] Tdap Tetanus, diphtheria, acellular pertussis Vaccine 2012-07-29 00:00:[address] [facility] Vital Signs Vital Name Observation Time Observation Value Comments Source Weight 2017-10-19 18:30:00 Ahmed Ah med Heart Rate 2017-10-19 18:30:00 Ahmed Ah med Diastolic (mm Hg) 2017-10-19 18:30:00 [facility] ed Ahmed Systolic (mm Hg) 2017-10-19 18:30:00 Yaron Siegel Weight 2017-05-20 19:15:00 Ahmed Ah med Heart Rate 2017-05-20 19:15:00 Ahmed Ah med Diastolic (mm Hg) 2017-05-20 19:15:00 [facility] ed med Systolic (mm Hg) 2017-05-20 19:15:00 Ahme d Ahmed Weight 2017-03-18 19:45:00 Ahmed Ah med Heart Rate 2017-03-18 19:45:00 Ahmed Ah med Diastolic (mm Hg) 2017-03-18 19:45:00 Ahm ed Ahmed Systolic (mm Hg) 2017-03-18 19:45:00 Ahme d Ahmed Weight 2017-02-11 20:15:00 Ahmed Ah med Heart Rate 2017-02-11 20:15:00 Ahmed Ah med Diastolic (mm Hg) 2017-02-11 20:15:00 Ahm ed Ahmed Systolic (mm Hg) 2017-02-11 20:15:00 Ahme d Ahmed Procedures Procedure Date / Time Performed Performing Clinician [facility] e Computed tomography of brain without radiopaque contrast 201 03-02-18 00:00:00 KIANNA JACOB [facility] EGD (esophagogastroduodenoscopy) 2019-06-06 00:00:00 KARTIK JACOB [facility] Plan of Care Planned Activity Planned Date Details Comments Source Future Scheduled Test 2020-01-20 00:00:00 INFLUENZA VACCINE [code = INFLUENZA VACCINE] [facility] Scheduled Test 2016-08-03 00:00:00 Cervical Cancer Sc rn (3 Yrs) [code = Cervical Cancer Scrn (3 Yrs)] [facility] Scheduled Test 2016-03-11 00:00:00 Breast Cancer Scrn (Yearly) [code = Breast Cancer Scrn (Yearly)] [facility] Scheduled Test 2014-07-24 00:00:00 Colorectal Cancer Scrn Annual (FIT/FOBT) Age 50 to 75 [code = Colorectal Cancer Scrn Annual (FIT/FOBT) Age 50 to 75] [facility] Scheduled Test 2006-02-23 00:00:00 BREAST CANCER SCRE ENING [code = BREAST CANCER SCREENING] [facility] Scheduled Test 2006-02-23 00:00:00 COLONOSCOPY SCREEN ING [code = COLONOSCOPY SCREENING] [facility] Scheduled Test 2006-02-23 00:00:00 SHINGLES VACCINES (#1) [code = SHINGLES VACCINES (#1)] [facility] Scheduled Test 1977-02-23 00:00:00 Screening for cl gnant neoplasm of cervix (procedure) [code = 535682474] [facility] Encounters Start Date/Time End Date/Time Encounter Type Admission Type Attendi [facility] Care Department Encounter ID Source 2019-11-09 08:59:59 Outpatient MHIEALT MHIEALT [id number] [facility] 2019-11-08 00:00:00 2019-11-08 00:00:00 Orders Only D octor Unassigned, [place] [facility] [id number] 2019-11-06 09:46:57 2019-11-06 10:01:57 Professional Development Director Visit [facility] [id number] 2019-11-05 00:00:00 2019-11-05 00:00:00 Nurse Triage Chito Kiana Benny [facility] [id number] 2019-10-26 07:32:56 2019-11-01 16:04:39 Telemedicine Visit Jaye [facility] [id number] 2019-06-06 15:55:00 2019-06-07 18:13:00 Discharged Inpatient (obs) 3 KIANNA JACOB [facility] [id number] [facility] 2019-03-08 13:44:00 2019-03-08 13:44:00 Emergency E [facility]SE [facility] [id number] [facility] 2017-10-19 13:30:00 2017-10-19 13:30:00 Outpatient [facility] Sarika Sauceda [id number] [employer] 2017-09-22 09:18:00 2017-09-22 09:18:00 Outpatient [facility] [place] [id number] [employer] 2017-05-20 13:15:00 2017-05-20 13:15:00 Outpatient [facility] [place] [id number] [employer] 2017-03-18 13:45:00 2017-03-18 13:45:00 Outpatient [facility] [place] [id number] [employer] 2017-02-11 14:15:00 2017-02-11 14:15:00 Outpatient [facility] [place] [id number] [employer] Results Test Description Test Time Test Comments Results Result Comments Source CT LUMBAR SPINE WO 2019-11-08 18:52:00 [place] [address] Patient Name: FIDELINA SARMIENTO MR #: [id number] : 1955 Age/Sex: 64/F Req #: [id number] Adm Physician: Ordered by: LAVONNE RAMON MELTER [employer] Report #: [id number] Location: ER Room/Bed: Procedure: [id number] CT/CT LUMBAR SPINE WO Exam Date: 11/08/19 Exam Time: 1740 REPORT STATUS: Signed EXAMINATION: CT of the lumbar spine HISTORY: Seizure, trauma, pain COMPARISON: None available TECHNIQUE: Multidetector helical axial images were obtained without contrast from L1 to S1. The images were reconstructed using bone and soft tissue algorithms and were viewed in axial, sagittal, and coronal planes. Dose modulation, iterative reconstruction, and/or weight based adjustment of the mA/kV was utilized to reduce the radiation dose to as low as reasonably achievable. FINDINGS: Alignment: Normal alignment and lordosis. Subtle left-sided curvature. Vertebral bodies: Normal height and density. Paraspinal muscles: Normal. Intervertebral disks: L1-L2: Normal L2- L3: Normal L3-L4: Mild symmetric disc bulge and facet arthrosis. No spinal canal or foraminal stenoses. L4-L5: Symmetric disc bulge, ligamenta flava thickening and moderate facet arthrosis. Minimal spinal canal narrowing. Mild right foraminal stenoses. L5-S1: Decreased disc height, mild symmetric disc bulge, bilateral facet arthrosis. No spinal canal or foraminal stenosis. Sacroiliac joints: No acute abnormalities, mild degenerative changes. IMPRESSION: 1. No acute fractures or dislocations. 2. Mild degenerative canal or foraminal narrowing at L4-L5. 3. Moderate chronic facet arthrosis at L4-L5. 4. Note is made that acute traumatic thecal sac/cauda equina, ligamentous or vascular injury cannot adequately be assessed with CT. Signed by: Dr. Richard Daniels M.D. on 11/08/2019 6:55 PM Dictated By: RICHARD DANIELS MD 55 Transcribed By: DAREN on 11/08/191854 COPY TO: LAVONNE RAMON MELTER [employer] CT CERVICAL SPINE WO 2019-11-08 18:46:00 [place] [address] Patient Name: FIDELINA SARMIENTO MR #: [id number] : 1955 Age/Sex: 64/F Req #: [id number] Adm Physician: Ordered by: LAVONNE RAMON MELTER [employer] Report #: [id number] Location: ER Room/Bed: Procedure: [id number] CT/CT CERVICAL SPINE WO Exam Date: 11/08/19 Exam Time: 1740 REPORT STATUS: Signed EXAMINATION: Head and cervical spine CT without contrast. HISTORY: Seizure, trauma, pain COMPARISON: Head CT 06/07/2019 TECHNIQUE: Multidetector axial images were obtained without contrast from the foramen magnum to the vertex and through the cervical spine. The images were reconstructed using brain and bone algorithms. Thin section brain images were reformatted into coronal and sagittal planes. Dose modulation, iterative reconstruction, and/or weight based adjustment of the mA/kV was utilized to reduce the radiation dose to as low as reasonably achievable. HEAD CT FINDINGS: Skull/scalp: No lytic or blastic lesions. No fractures. Parenchyma: Normal. No mass, hemorrhage or CT evidence of acute vascular insult. Brain volume: Prominence of the cerebellar folia which may be related to atrophy, perhaps associated to chronic anticonvulsant medication in the appropriate clinical setting. Ventricles: No hydrocephalus or displacement. Arteries: No density suggestive of thrombus. Dural sinuses: No abnormal density. Extra-axial spaces: No abnormal density. Foramen magnum: No mass, Chiari malformation, or basilar invagination. Sella: No obvious mass. Paranasal/mastoid sinuses: Hypo pneumatization and sclerosis of the right mastoid air cells, which may represent sequela from remote/chronic inflammatory process in the appropriate clinical setting. Otherwise clear. CERVICAL SPINE CT FINDINGS: Alignment:Normal alignment and lordosis. Soft tissues: Normal. Vertebrae: Normal height and density. No acute fracture, infection or neoplasm. Partially visualized benign hemangioma in the right side of the T2 vertebral body. Degenerative changes: No significant degenerative changes, no spinal canal or foraminal stenosis. IMPRESSION: Head CT: 1. No acute postraumatic intracranial hemorrhage, particularly no hemorrhage. 2. Mild infratentorial volume loss, unchanged from prior study. Cervical spine CT: No acute fractures or dislocations. Note: Acute post traumatic spinal cord, vascular or ligamentous injury cannot adequately be assessed with CT. Signed by: Dr. Richard Daniels M.D. on 11/08/2019 6:51 PM Dictated By: RICHARD DANIELS MD 50 Transcribed By: DAREN on 11/08/191850 COPY TO: LAVONNE RAMON NP CT BRAIN WO 2019-11-08 18:46:00 [place] [address] Patient Name: FIDELINA SARMIENTO MR #: [id number] : 1955 Age/Sex: 64/F Req #: [id number] [facility] Physician: Ordered by: LAVONNE RAMON NP Report #: [id number] Location: ER Room/Bed: Procedure: [id number] CT/CT BRAIN WO Exam Date: 11/08/19 Exam Time: 1740 REPORT STATUS: Signed EXAMINATION: Head and cervical spine CT without contrast. HISTORY: Seizure, trauma, pain COMPARISON: Head CT 06/07/2019 TECHNIQUE: Multidetector axial images were obtained without contrast from the foramen magnum to the vertex and through the cervical spine. The images were reconstructed using brain and bone algorithms. Thin section brain images were reformatted into coronal and sagittal planes. Dose modulation, iterative reconstruction, and/or weight based adjustment of the mA/kV was utilized to reduce the radiation dose to as low as reasonably achievable. HEAD CT FINDINGS: Skull/scalp: No lytic or blastic lesions. No fractures. Parenchyma: Normal. No mass, hemorrhage or CT evidence of acute vascular insult. Brain volume: Prominence of the cerebellar folia which may be related to atrophy, perhaps associated to chronic anticonvulsant medication in the appropriate clinical setting. Ventricles: No hydrocephalus or displacement. Arteries: No density suggestive of thrombus. Dural sinuses: No abnormal density. Extra-axial spaces: No abnormal density. Foramen magnum: No mass, Chiari malformation, or basilar invagination. Sella: No obvious mass. Paranasal/mastoid sinuses: Hypo pneumatization and sclerosis of the right mastoid air cells, which may represent sequela from remote/chronic inflammatory process in the appropriate clinical setting. Otherwise clear. CERVICAL SPINE CT FINDINGS: Alignment:Normal alignment and lordosis. Soft tissues: Normal. Vertebrae: Normal height and density. No acute fracture, infection or neop lasm. Partially visualized benign hemangioma in the right side of the T2 vertebral body. Degenerative changes: No significant degenerative changes, no spinal canal or foraminal stenosis. IMPRESSION: Head CT: 1. No acute postraumatic intracranial hemorrhage, particularly no hemorrhage. 2. Mild infratentorial volume loss, unchanged from prior study. Cervical spine CT: No acute fractures or dislocations. Note: Acute post traumatic spinal cord, vascular or ligamentous injury cannot adequately be assessed with CT. Signed by: Dr. Richard Daniels M.D. on 11/08/2019 6:51 PM Dictated By: RICHARD DANIELS MD 50 Transcribed By: DAREN on 11/08/191850 COPY TO: LAVONNE RAMON [employer] PELVIS AP 1-2 VIEWS 2019-11-08 18:34:00 [place] [address] Patient Name: FIDELINA SARMIENTO MR #: [id number] : 1955 Age/Sex: 64/F Req #: [id number] Adm Physician: Ordered by: LAVONNE RAMON [employer] Report #: [id number] Location: ER Room/Bed: Procedure: [id number] DX/PELVIS AP 1-2 VIEWS Exam Date: 11/08/19 Exam Time: 1809 REPORT STATUS: Signed EXAMINATION: AP pelvis Film CLINICAL HISTORY:Status post fall COMPARISON: None. DISCUSSION: The bones are well-mineralized. No acute, displaced fractures or dislocations. Mild degenerative changes in bilateral hip joints. Degenerative changes are also noted in the lower lumbosacral spine. No aggressive lytic or suspicious sclerotic lesions. No gross soft tissue abnormalities. IMPRESSION: 1. No acute abnormalities. Signed by: Dr. Omar Latham M.D. on 11/08/2019 6:35 PM Dictated By: OMAR LATHAM MD 34 Transcribed By: DAREN on 11/08/191834 COPY TO: LAVONNE RAMON [employer] - XR SWLW FUNC W/C V 2019-09-29 13:08:00 FAX: Kianna Navarro MD [phone] [place]: St: [facility] FAX: Marvin Carver MD [phone] Name: GUILLERMINAFIDELINA RENTERIA [facility] : 1955 Age/S: 64/F [address] [place] [address] Unit #: [id number] Loc: [place] [address] Phys: Kianna Jacbo MD Acct: [id number] Dis Date: Status: REG CLI PHONE #: [phone] Exam Date: 09/29/20191126 FAX #: [phone] Reason: DYSPHAGIA R13.10 EXAMS: CPT CODE: [id number] XR SWLW FUNC W/C V 34149 Modified barium swallow: HISTORY: Dysphasia, epilepsy, lung nodules. FINDINGS: The study was performed with speech pathology using various barium consistencies. The oral stage of the swallow is normal with all tested consistencies. In the pharyngeal stage there is vallecular pooling with thin and thick liquid. The patient showed no laryngeal penetration or tracheal aspiration with any material. Please refer to speech pathology report for additional exam detail. Reference air kerma: 1.86 mGy, fluoroscopy time 58 seconds SL: [id number] at 1308 Reported and signed by: Jan Shaffer M.D. CC: Kianna Jacob M.D.; Marvin Caba MD Technologist: RT Lana(R) Trnscrd Date/Time/By: 09/29/2019 (9705) : By: NayETG Orig Print D/T: S: 09/29/2019 (4202) PAGE 1 Signed Report EEG AWAKE AND DROWSY 2019-08-04 14:51:00 Reason for exam:->P sychogenic nonepilieptic seizure DATE OF TEST: 08-04-2019 DATE OF REPORT: 08-04-2019 EE 0264 ACC: [id number] Start: 1349 Stop: 1421 ICD-10: R56.9 CPT Code: 27684 HISTORY: 64 yo female here for psychogenic nonepileptic seizures. Patient states many doctors have told [...] focal dysfunction or epileptiform discharges were seen. Kevin Yuan MD, MS Neurophysiology/Epilepsy Attending BRAIN WO 2019-06-07 11:00:00 [place] [address] Patient Name: FIDELINA SARMIENTO MR #: [id number] : 1955 Age/Sex: 64/F Req #: [id number] Adm Physician: KIANNA JACOB MD Ordered by: KIANNA JACOB MD Report #: [id number] Location: [facility] Room/Bed: [place] [address] Procedure: [id number] CT/CT BRAIN WO Exam Date: 06/07/19 Exam Time: 1000 REPORT STATUS: Signed Examination: CT BRAIN WO CONTRAST History:Seizures. Comparison studies:Head CT performed January 24, 2016 Technique: Axial images were obtained from the skull base to the vertex. Coronal and sagittal images reconstructed from the axial data. Dose modula tion, iterative reconstruction, and/or weight based adjustment of [...] performed January 24, 2016. Signed by: Dr. Margie Beaulieu M.D. on 06/07/2019 11:01 AM Dictated By: MARGIE DING MD 1101 Transcr ibed By: DAREN on 06/07/19 1101 COPY TO: KIANNA JACOB MD White Blood Count 2019-05-30 12:03:00 Test Item White Blood Count (test code = 6690-2) 5.52 4.8-10.8 [facility] Febqq3371-01-20 12:03:00* Test Item Value Reference Range Interpretation Comments Red Blood Count (test code = 789-8) 4.81 3.6-5.1 [facility] Hospital[facility]emoglobin2019-12-10 12:03:00* Test Item Value Reference Range Interpretation Comments Hemoglobin (test code = 62823-0) 13.6 12.0-16.0 [facility] HospitalHematocrit2019-12-10 12:03:00* Test Item Value Reference Range Interpretation Comments Hematocrit (test code = 4544-3) 42.1 34.2-44.1 [facility] HospitalMean Corpuscular Vgfgmt5074-50-68 12:03:00* Test Item Value Reference Range Interpretation Comments Mean Corpuscular Volume (test code = 787-2) 87.5 81-99 [facility] Corpuscular Qiiwcjhtvy8645-51-60 12:03:00* Test Item Value Reference Range Interpretation Comments Mean Corpuscular Hemoglobin (test code = 785-6) 28.3 28-32 [facility] Concent 2019-05-30 12:03:00* Test Item Value Reference Range Interpretation Comments Mean Corpuscular Hemoglobin Concent (test code = 786-4) 32.3 31-35 [facility] Cell Distribution Xhhwo6725-39-32 12:03:00* Test Item Value Reference Range Interpretation Comments Red Cell Distribution Width (test code = 31949-1) 13.7 11.7 -14.4 [facility] HospitalPlatelet Pdpgy5924-12-91 12:03:00* Test Item Value Reference Range Interpretation Comments Platelet Count (test code = 777-3) 192 140-360 [facility] HospitalNeutrophils (%) (Auto)2019-05-30 12:03:00 * Test Item Value Reference Range Interpretation Comments Neutrophils (%) (Auto) (test code = 10379-3) 51.1 38.7-80.0 [facility] HospitalLymphocytes (%) (Auto)2019-05-30 12:03:00 * Test Item Value Reference Range Interpretation Comments Lymphocytes (%) (Auto) (test code = 736-9) 34.1 18.0-39.1 [facility] HospitalMonocytes (%) (Auto)2019-05-30 12:03:00* Test Item Value Reference Range Interpretation Comments Monocytes (%) (Auto) (test code = 5905-5) 11.8 4.4-11.3 [facility] HospitalEosinophils (%) (Auto)2019-05-30 12:03:00 * Test Item Value Reference Range Interpretation Comments Eosinophils (%) (Auto) (test code = 713-8) 1.8 0.0-6.0 [facility] HospitalBasophils (%) (Auto)2019-05-30 12:03:00* Test Item Value Reference Range Interpretation Comments Basophils (%) (Auto) (test code = 706-2) 0.7 0.0-1.0 [facility] HospitalIM GRANULOCYTES %2019-05-30 12:03:00* Test Item Value Reference Range Interpretation Comments IM GRANULOCYTES % (test code = IM GRANULOCYTES %) 0.5 0.0- 1.0 [facility] HospitalNeutrophils # (Auto)2019-05-30 12:03:00* Test Item Value Reference Range Interpretation Comments Neutrophils # (Auto) (test code = 751-8) 2.8 2.1-6.9 [facility] HospitalLymphocytes # (Auto)2019-05-30 12:03:00* Test Item Value Reference Range Interpretation Comments Lymphocytes # (Auto) (test code = 90397-9) 1.9 1.0-3.2 [facility] HospitalMonocytes # (Auto)2019-05-30 12:03:00* Test Item Value Reference Range Interpretation Comments Monocytes # (Auto) (test code = 742-7) 0.7 0.2-0.8 [facility] HospitalEosinophils # (Auto)2019-05-30 12:03:00* Test Item Value Reference Range Interpretation Comments Eosinophils # (Auto) (test code = 711-2) 0.1 0.0-0.4 [facility] HospitalBasophils # (Auto)2019-05-30 12:03:00* Test Item Value Reference Range Interpretation Comments Basophils # (Auto) (test code = 704-7) 0.0 0.0-0.1 [facility] HospitalAbsolute Immature Granulocyte (auto 2019-05-30 12:03:00* Test Item Value Reference Range Interpretation Comments Absolute Immature Granulocyte (auto (geneva t code = Absolute Immature Granulocyte (auto) 0.03 0-0.1 [facility] HospitalTERMINAL [id number] 13:02:00 RUN DATE: 07/18/18 [employer] PAGE 1 RUN TIME: 1302 Specimen Inqui ry RUN USER: INTERFACE PATIENT: FIDELINA SARMIENTO ACCT #: [id number] LOC: [place] U #: [id number] AGE/SX: 63/F ROOM: RE07/14/18REG DR: Kianna Jacob MD : 57 BED: DIS: STATUS: [facility] TLOC: SPEC #: [id number] RECD: 07/15/18 STATUS: [facility] #: [id number] BOB: 07/14/18-8 [facility] DR: Kianna Jacob MD ENTERED: 07/15/18 SP TYPE: TERM ILEUM OTHR DR: Mark Pacheco MD ORDERED: GROSS COPIES TO: Kianna Jacob MD [address] [place] [phone] Mark Pacheco MD [address] [address] PROCEDURES: GR OSS (07/18/18-1157) TISSUES: 1. ILEUM, NOS - TERMINAL BX 2. CO BIANKA, NOS - RANDOM BX 3. DESCENDING COLON [...] PROMINENT LYMPHOID AGGREGATES AND MILD EDEMA NO HY PERPLASTIC OR ADENOMATOUS CHANGE PRESENT JANESSA NUED ON NEXT PAGE RUN DATE: 07/18/18 [facility] - Lab PAGE 2 RUN TIME: 1302 Specimen Inquiry RUN USER: INTERFACE SPEC #: [id number] ATIENT: FIDELINA SARMINETO #[id number] (Continued) FINAL DIAGNOSIS (Continued) NEGATIVE FOR MALIGNANCY RRB/sm D [phone] MACROSCOPIC Specimen (1) is received in formalin, labeled with the patient's name, identified as "terminal ileum", and consists of oviedo biopsy tissue measuring 0.3 cm, submitted as (1). Spe cimen (2) is received in formalin, labeled with the patient's name, identified as "random colon", and consists of muliplt pink-light oviedo biopsy tissue measu ring 0.5 cm in aggregate, submitted as (2). Specimen (3) is received in fo rmalin, labeled with the patient's name, identified as "descending colon", and consists of red-brown biopsy tissue measuring 0.25 cm in aggregate, submitted as (3). GROSS PERFORMED AT [facility] [address] [place] [address] ([phone] MICROSCOP IC MICROSCOPIC PERFORMED AT [facility] All of the stains, inclu ding any controls performed, stain appropriately. [facility] [address] [place] [address] ([phone] PERFORMING SIT E Diagnosis performed at: [facility] [address] [place], [place] [phone] CONTINUED ON NEXT PAGE RUN DATE: 07/18/18 [place] [facility] PAGE 3 RUN TIME: 1302 Specimen Inquiry RUN USER: I GHADA S PEC #: [id number] PATIENT: FIDELINA SARMIENTO #[id number] (Continued) Signed SIGNATURE ON FILE Luis Chew 07/18/18 1302 END OF REPORT GLUBED 2018-07-14 13:39:00* Test Item Value Reference Range Interpretation Comments GLUBED (test code = GLUBED) 91 mg/dL 74-106 N Performed by certified ripening room operator at [facility] [id number] 12:18:00* Test Item Value Reference Range Interpretation Comments POTASSIUM (test code = K) 3.2 mmol/L 3.5-5.1 L BASIC METABOLIC [id number] 12:23:00* Test Item Value Reference Range Interpretation Comments SODIUM (test code = NA) 139 mmol/L 136-145 N POTASSIUM (test code = K) 3.1 mmol/L 3.5-5.1 L CHLORIDE (test code = CL) 103.0 mmol/L 98-107 N CARBON DIOXIDE (test code = CO2) 27.0 mmol/L 21-32 N ANION GAP (test code = GAP) 12.1 10-20 N GLUCOSE (test code = GLU) 93 mg/dL 74-106 N BLOOD UREA NITROGEN (test code = BUN) 14 mg/dL 7-18 N GLOMERULAR FILTRATION RATE (test code = GFR) > 60 mL/min >=60 Estimated GFR by using Modified MDRD formula.Chronic kidney disease is defined as either kidney damageor GFR <60 mL/min/1.73 m2 for >3 months. CREATININE (test code = CREAT) 0.70 mg/dL 0.55-1.02 N Note change in reference range due to change in reagent. BUN/CREATININE RATIO (test code = BUN/CREA) 20.6 10-20 H CALCIUM (test code = CA) 9.5 mg/dL 8.5-10.1 N CBC W/AUTO [id number] 12:19:00* Test Item Value Reference Range Interpretation Comments WHITE BLOOD CELL (test code = WBC) 6.3 K/mm3 4.5-12.5 N RED BLOOD CELL (test code = RBC) 4.97 mill/mm3 3.7-5.2 N HEMOGLOBIN (test code = HGB) 13.7 gram/dL 11.5-15.5 N HEMATOCRIT (test code = HCT) 42.4 % 36.0-46.0 N MEAN CELL VOLUME (test code = MCV) 85.3 fL 80-98 N MEAN CELL HGB (test code = MCH) 27.6 picogram 27.0-33.0 N MEAN CELL HGB CONCETRATION (test code = MCHC) 32.3 gram/dL 33.0-36. 0 L RED CELL DISTRIBUTION WIDTH (test code = RDW) 14.0 % 11.6-16. 2 N RED CELL DISTRIBUTION WIDTH SD (test code = RDW-SD) 43.2 fL 37 .0-51.0 N PLATELET COUNT (test code = PLT) 201 K/mm3 150-450 N MEAN PLATELET VOLUME (test code = MPV) 11.3 fL 6.7-11.0 H NEUTROPHIL % (test code = NT%) 64.8 % 39.0-69.0 N IMMATURE GRANULOCYTE % (test code = IG%) 0.5 % 0.0-5.0 N LYMPHOCYTE % (test code = LY%) 26.3 % 25.0-55.0 N MONOCYTE % (test code = MO%) 7.8 % 0.0-10.0 N EOSINOPHIL % (test code = EO%) 0.0 % 0.0-5.0 N BASOPHIL % (test code = BA%) 0.6 % 0.0-1.0 N NUCLEATED RBC % (test code = NRBC%) 0.0 % 0-0 N NEUTROPHIL # (test code = NT#) 4.07 K/mm3 1.8-7.7 N IMMATURE GRANULOCYTE # (test code = IG#) 0.03 x10 3/uL 0-0.03 N LYMPHOCYTE # (test code = LY#) 1.65 K/mm3 1.0-5.0 N MONOCYTE # (test code = MO#) 0.49 K/mm3 0-0.8 N EOSINOPHIL # (test code = EO#) 0.00 K/mm3 0.0-0.5 N BASOPHIL # (test code = BA#) 0.04 K/mm3 0.0-0.2 N NUCLEATED RBC # (test code = NRBC#) 0.00 K/mm3 0.0-0.1 N MANUAL DIFF REQUIRED (test code = MDIFF) NO BASIC METABOLIC [id number] 12:18:00* Test Item Value Reference Range Interpretation Comments SODIUM (test code = NA) 139 mmol/L 136-145 N POTASSIUM (test code = K) 3.1 mmol/L 3.5-5.1 L CHLORIDE (test code = CL) 103.0 mmol/L 98-107 N CARBON DIOXIDE (test code = CO2) mmol/L 21-32 ANION GAP (test code = GAP) 10-20 GLUCOSE (test code = GLU) mg/dL 74-106 BLOOD UREA NITROGEN (test code = BUN) mg/dL 7-18 GLOMERULAR FILTRATION RATE (test code = GFR) mL/min >=60 CREATININE (test code = CREAT) mg/dL 0.55-1.02 BUN/CREATININE RATIO (test code = BUN/CREA) 10-20 CALCIUM (test code = CA) mg/dL 8.5-10.1 GASTRIC,[id number] 15:58:00 RUN DATE: 06/10/18 [employer] PAGE 1 RUN TIME: 1558 Specimen Inqui ry RUN USER: INTERFACE PATIENT: FIDELINA SARMIENTO ACCT #: [id number] LOC: [place] U #: [id number] AGE/SX: 63/F ROOM: RE06/09/18REG DR: Kianna Jacob MD : 57 BED: DIS: STATUS: [facility] TLOC: SPEC #: [id number] RECD: 06/09/18 STATUS: [facility] #: [id number] BOB: 06/09/18- [facility] DR: Kianna Jacob MD ENTERED: 06/09/18 SP TYPE: GASTRIC BX OTHR DR: Mark Pacheco MD ORDERED: GROSS COPIES TO: Kianna Jacob MD [address] [place] [phone] Mark Pacheco MD [address] [address] PROCEDURES: GR OSS (06/10/18-1052) TISSUES: GASTRIC FUNDUS - POLYP BX CS CLIN ICAL HISTORY COLLECTION DATE: 06/09/2018 HX: STOMACH POLYP DIANE VASQUEZ POLYPS FINAL DIAGNOSIS Gastric polyps, biopsy: FUNDIC TYPE GASTRIC POLYPS NEGATIVE FOR MALIGNANCY DMW/sm D 73839 MACROSCOPIC The specimen is received in formalin, labeled with the taylor ent's name, and identified as "gastric polyp snare". It consists of a oviedo dc ypoid fragment of tissue measuring 0.6 X 0.4 X 0.4 cm and multiple oviedo fragmen ts of tissue measuring 1.2 cm in aggregate. The polypoid portion is bisected and submitted CONTINUED ON NEXT PAGE ------ ------RUN DATE: 06/10/18 [place] - Lab PAGE 2 RUN TIME: 1558 Specimen Inquiry RUN USER: INTERFACE SPEC #: [id number] PATIENT: GUILLERMINAFIDELINA MYRA #[id number] (Continued) MACROSCOPIC (Continued) for microscopic evaluation in cassette (1A) and the remaining fragments are submitted for microscopic evaluation in cassette (1B). GROSS PERFORMED AT [facility] [address] [place], [place] [id number] [phone] MICROSCOPIC MICR OSCOPIC PERFORMED AT [facility] All of the stains, including any c ontrols performed, stain appropriately. [address] [address] ([phone] PERFORMING SITE Mabel gnosis performed at: [facility], [place] [address] [place] [phone] Signed SIGN ATURE ON FILE Dee Dee Dey 06/10/18 1558 -------- ---- END OF REPORT TROPONIN [id number] 16:49:00* Test Item Value Reference Range Interpretation Comments TROPONIN I (BEAKER) (test code = 397) < ng/mL 0.00-0.03 B-TYPE NATRIURETIC FACTOR (BNP)2018-05-14 16:49:00* Test Item Value Reference Range Interpretation Comments B-TYPE NATRIURETIC PEPTIDE (BEAKER) (test code = 700) 13 pg/mL 0-100 [id number] 16:42:00* Test Item Value Reference Range Interpretation Comments MAGNESIUM (BEAKER) (test code = 627) 2.2 mg/dL 1.6-2.6 Specimen slightly hemolyzed BASIC METABOLIC [id number] 16:42:00* Test Item Value Reference Range Interpretation Comments SODIUM (BEAKER) (test code = 381) 143 meq/L 136-145 POTASSIUM (BEAKER) (test code = 379) 3.5 meq/L 3.5-5.1 Specimen slightly hemolyzed CHLORIDE (BEAKER) (test code = 382) 100 meq/L 98-107 CO2 (BEAKER) (test code = 355) 30 meq/L 22-29 H BLOOD UREA NITROGEN (BEAKER) (test code = 354) 9 mg/dL 7-21 CREATININE (BEAKER) (test code = 358) 0.76 mg/dL 0.57-1.25 Specimen slightly hemolyzed GLUCOSE RANDOM (BEAKER) (test code = 652) 108 mg/dL 70-105 H CALCIUM (BEAKER) (test code = 697) 10.3 mg/dL 8.4-10.2 H EGFR (BEAKER) (test code = 1092) 77 mL/min/1.73 sq m ESTIMATED GFR IS NOT ACCURATE CREATININE CLEARANCE IN PREDICTING GLOMERULAR FILTRATION RATE. ESTIMATED GFR IS NOT APPLICABLE FOR DIALYSIS PATIENTS. CBC W/PLT COUNT & AUTO [id number] 16:27:00* Test Item Value Reference Range Interpretation Comments WHITE BLOOD CELL COUNT (BEAKER) (test code = 775) 6.8 K/ L 3.5- 10.5 RED BLOOD CELL COUNT (BEAKER) (test code = 761) 5.11 M/ L 3.93-5 .22 HEMOGLOBIN (BEAKER) (test code = 410) 14.4 GM/DL 11.2-15.7 HEMATOCRIT (BEAKER) (test code = 411) 44.5 % 34.1-44.9 MEAN CORPUSCULAR VOLUME (BEAKER) (test code = 753) 87.1 fL 79. 4-94.8 MEAN CORPUSCULAR HEMOGLOBIN (BEAKER) (test code = 751) 28.2 pg 25.6-32.2 MEAN CORPUSCULAR HEMOGLOBIN CONC (BEAKER) (test code = 752) 32.4 GM/DL 32.2-35.5 RED CELL DISTRIBUTION WIDTH (BEAKER) (test code = 412) 13.5 % 11.7-14.4 PLATELET COUNT (BEAKER) (test code = 756) 214 K/CU MM 150-450 MEAN PLATELET VOLUME (BEAKER) (test code = 754) 10.9 fL 9.4-12 .3 NUCLEATED RED BLOOD CELLS (BEAKER) (test code = 413) 0 /100 WBC 0 -0 NEUTROPHILS RELATIVE PERCENT (BEAKER) (test code = 429) 67 % LYMPHOCYTES RELATIVE PERCENT (BEAKER) (test code = 430) 25 % MONOCYTES RELATIVE PERCENT (BEAKER) (test code = 431) 8 % EOSINOPHILS RELATIVE PERCENT (BEAKER) (test code = 432) 0 % BASOPHILS RELATIVE PERCENT (BEAKER) (test code = 437) 0 % NEUTROPHILS ABSOLUTE COUNT (BEAKER) (test code = 670) 4.57 K/ L 1.56-6.13 LYMPHOCYTES ABSOLUTE COUNT (BEAKER) (test code = 414) 1.68 K/ L 1.18-3.74 MONOCYTES ABSOLUTE COUNT (BEAKER) (test code = 415) 0.51 K/ L 0. 24-0.36 H EOSINOPHILS ABSOLUTE COUNT (BEAKER) (test code = 416) 0.00 K/ L 0.04-0.36 L BASOPHILS ABSOLUTE COUNT (BEAKER) (test code = 417) 0.03 K/ L 0. 01-0.08 IMMATURE GRANULOCYTES-RELATIVE PERCENT (BEAKER) (test code = 2801) 0 % 0-1 RAD, CHEST, 1 VIEW, NON [id number] 15:54:00Reason for exam:->chest painFINAL REPORT INDICATION: chest pain COMPARISON:January 20, 2016 TECHNIQUE: Chest radiograph, single view, portable technique. FINDINGS / IM PRESSION: No pneumothorax, consolidation, pulmonary edema, or pleural effusion i s demonstrated. Cardiac and mediastinal contours are unremarkable for portable t echnique. Osseous structures unremarkable. Signed: Daja Adam Cyndi ified Date/Time: 05/14/2018 15:54:56 Reading Location: [facility] [id number] [facility] Reading Room Electronically signed by: DAJA ADAM M.D. on 05/14 03:54 PM [id number] 13:35:00 RUN DATE: 04/01/18 [place] [facility] PAGE 1 RUN TIME: 1335 Specimen Inqui ry RUN USER: INTERFACE PATIENT: FIDELINA SARMIENTO ACCT #: [id number] LOC: [place] U #: [id number] AGE/SX: 63/F ROOM: RE03/31/18REG DR: Kianna Jacob MD : 57 BED: DIS: STATUS: [facility] TLOC: SPEC #: [id number] RECD: 03/31/18 STATUS: [facility] #: [id number] BOB: 03/31/18 DR: Kianna Jacob MD ENTERED: 03/31/18 SP TYPE: STOMACH OTHR DR: Mark Pacheco MD ORDERED: GROSS COPIES TO: Kianna Jacob MD [address] [place] [phone] Mark Pacheco MD [address] [address] PROCEDURES: GR OSS (04/01/18-1134) TISSUES: 1. BODY [...] INUED ON NEXT PAGE RUN DATE: 04/01/18 [place] - Lab PAGE 2 RUN TIME: 1335 Specimen Inquiry RUN USER: INTERFACE SPEC #: [id number] PATIENT: FIDELINA SARMIENTO #[id number] (Continued) FINAL DIAGNOSIS (Continued) REACTIVE GASTROPATHY NO ACUTE INFLAMMATORY INFILTRATE PRESENT NEGATIVE FOR INTESTINAL METAPLA ROMA NEGATIVE FOR HELICOBACTER ORGANISMS NEGATIVE FOR MALIGNANCY Gastric body, biopsy: FRAGMENT OF GASTRIC MUCOSA WITH NO PATHOLO GIC ALTERATION NEGATIVE FOR HELICOBACTER ORGANISMS RRB/duke D [phone] MACROSCOPIC The first specimen is received in [...] submitted as (4). GROSS PERFORME D AT [facility] [address] [facility], [place] [address] ([phone] MICROSCOPIC MICROSCOPIC PERFORMED A T [facility] All of the stains, including any controls performed, stain appropriately. [facility] [address] [facility], CONTINUED ON NEXT PAGE RUN DATE: [place] - Lab PAGE 3 RUN TIME: 1335 Specimen Inquiry RUN US ER: INTERFACE -------- ----SPEC #: [id number] PATIENT: FIDELINA SARMIENTO #[id number] (Continued) MICROSCOPIC (Continued) [place] [address] (P)[phone] PERFORMING SITE Diagnosis performe d at: [facility], [place] [address] [place] [address] Signed SIGNATURE ON FILE AngelkirstiechekoLuis R 04/01/18 1335 END OF REPORT BASIC METABOLIC [id number] 09:09:00* Test Item Value Reference Range Interpretation Comments SODIUM (BEAKER) (test code = 381) 141 meq/L 136-145 POTASSIUM (BEAKER) (test code = 379) 4.0 meq/L 3.5-5.1 CHLORIDE (BEAKER) (test code = 382) 104 meq/L 98-107 CO2 (BEAKER) (test code = 355) 27 meq/L 22-29 BLOOD UREA NITROGEN (BEAKER) (test code = 354) 19 mg/dL 7-21 CREATININE (BEAKER) (test code = 358) 0.87 mg/dL 0.57-1.25 GLUCOSE RANDOM (BEAKER) (test code = 652) 100 mg/dL 70-105 CALCIUM (BEAKER) (test code = 697) 10.1 mg/dL 8.4-10.2 EGFR (BEAKER) (test code = 1092) 66 mL/min/1.73 sq m ESTIMATED GFR IS NOT ACCURATE CREATININE CLEARANCE IN PREDICTING GLOMERULAR FILTRATION RATE. ESTIMATED GFR IS NOT APPLICABLE FOR DIALYSIS PATIENTS. [id number] 08:53:00* Test Item Value Reference Range Interpretation Comments PARTIAL THROMBOPLASTIN TIME (BEAKER) (test code = 760) 30.3 seconds 22.5-36.0 CBC (HEMOGRAM ONLY)2017-12-06 08:44:00* Test Item Value Reference Range Interpretation Comments WHITE BLOOD CELL COUNT (BEAKER) (test code = 775) 7.9 K/ L 3.5- 10.5 RED BLOOD CELL COUNT (BEAKER) (test code = 761) 5.35 M/ L 3.93-5 .22 H HEMOGLOBIN (BEAKER) (test code = 410) 15.1 GM/DL 11.2-15.7 HEMATOCRIT (BEAKER) (test code = 411) 46.9 % 34.1-44.9 H MEAN CORPUSCULAR VOLUME (BEAKER) (test code = 753) 87.7 fL 79. 4-94.8 MEAN CORPUSCULAR HEMOGLOBIN (BEAKER) (test code = 751) 28.2 pg 25.6-32.2 MEAN CORPUSCULAR HEMOGLOBIN CONC (BEAKER) (test code = 752) 32.2 GM/DL 32.2-35.5 RED CELL DISTRIBUTION WIDTH (BEAKER) (test code = 412) 13.7 % 11.7-14.4 PLATELET COUNT (BEAKER) (test code = 756) 230 K/CU MM 150-450 MEAN PLATELET VOLUME (BEAKER) (test code = 754) 10.6 fL 9.4-12 .3 NUCLEATED RED BLOOD CELLS (BEAKER) (test code = 413) 0 /100 WBC 0 -0 EEG MONITORING WITH VIDEO RECORDING EACH 24 [id number] 16:47:00Reason for exam:->EMU admit- h/o PNESEPILEPSY MONITORING UNIT - VIDEO EEG STUDY EEG NUMBER: [id number] ACCESSION NUMBERS: [id number], [id number], [id number], [id number] OF RECORDIN10/04/17, and recording started at 10:42 [...] are observed as detailed above, described by travon catalan patient and her as representing the full [...] to pharmacologic effects of the patient's medications. Travon catalan documented semiologic features of prolonged event duration, [...] these events was in 2016. She is sometimes able to warn her [...] her involvement in psychotherapy with her current service counselor or (with anticipated hypnosis therapy) and encouraged further pursuits aiming to enhance coping mechanisms, stress management, and communication channels. We en courage openness toward exploration of existing emotional conflict that may be p otentially suppressed. She was encouraged to follow-up with her mental health pr oviders and primary Neurologist for further management. 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 - VIDEO EEG STUDY EEG NUMBER: [id number] ACCESSION NUMBERS: [id number], [id number], [id number], [id number] OF RECORDIN10/04/17, and recordi ng started at 10:42 END OF RECORDIN10/08/17, and recording ended at 08:04 TOT AL RECORDING HOURS: 93.5ICD 10 = F44.9 TECHNICAL SUMMARY: This continuous Video- EEG record is run with a digital EEG machine, 24 channels, with standard Interna tional System 10-20 electrode placements, eye movement leads, and an EKG lead.Re cording Day #1 (10/04/17, 10:42 to 10/05/17, 06:15) BASELINE AWAKE: During th e maximally awake state, a posterior dominant rhythm of 10 Hz alpha is present o cyndi bilateral occipital regions. More anteriorly, similar as well as faster acti vities occur, including much admixtures of 18-21 Hz beta activity. SLEEP: As the patient enters drowsiness, the overall background amplitudes are relatively diminished, while increased amounts of diffuse 5-7 Hz theta and rhythmical slowi ng emerge. With sleep, positive occipital sharp transients, vertex waves, and sl eep spindles are present and symmetrically expressed. HYPERVENTILATION is not performed. PHOTIC STIMULATION is not performed. EVENTS: There are approximatel y 13 typical clinical events observed during recording day #1 Clinical: The typi grace clinical semiology is variable with waxing and waning intensity throughout e ach event and throughout the day, often with indistinct clinical offset. Onset is exclusively out of wakefulness. The majority of events start with right arm irregular/starting-stopping tremulousness with subsequent regional and occasiona l contralateral propagation. There is often irregular/starting-stopping lateral head movement. At times, there is axial flexion/extension (rocking/swaying movem ents); grimacing facial expression with eyes closed and mouth open; crying/moani ng vocalizations; dysarthric, halting and immature style speech; occasional upwa rd gaze deviation with eyes open; and decreased responsiveness to stimulation. A t times, the patient is able to respond to questions and commands appropriately during these events. On other occasions, patient is poorly responsive and amnest ic for some details of events. Electrographically, these events coincide with no epileptiform correlate. During periods of clinical unresponsiveness, the taylor ent's typical awake background activity is present, including a normal posterior dominant rhythm. Recording Day #2 (10/05/17, 06:15 to 10/06/17, 06:15) BASEL INE AWAKE, SLEEP: Not significantly changed compared to the previous day. KALEB NTS: There are approximately 16 typical events observed during recording day #2. Clinical: The events observed during recording day #2 are of a similar variable waxing/waning semiology as those described during recording day #1. In addition, several events are triggered by or associated with pain or noxious stimuli, e.g. "stabbing" sensation in chest/back, "electric shock" sensations in the back or legs, "high-pitched noise." Electrographically, these events coincide with no e pileptiform correlate. Recording Day #3 (10/06/17, 06:15 to 10/07/17, 06:15) BASELINE AWAKE, SLEEP: Not significantly changed compared to the previous day. EVENTS: There are approximately 14 typical events observed during recording day #3.Clinical: The events observed during recording day #3 are of a similar vari able waxing/waning semiology as those described during recording days #1 and 2. Electrographically, these events coincide with no epileptiform correlate. Cash rding Day #4 (10/07/17, 06:15 to 10/08/17, 08:04) BASELINE AWAKE, SLEEP: Not significantly changed compared to the previous day. EVENTS: There are approxim ately 10 typical events observed during recording day #4.Clinical: The events ob served during recording day #4 are of a similar variable waxing/waning semiology as those described during recording days #1-3. SUMMARY OF VIDEO-EEG MONITORING COURSE: 1). Normal EEG of the awake, drowsy, and asleep states. 2). Approxima tely 53 habitual clinical events are observed as detailed above, described by wesley jacobo patient and her as representing the full spectrum of the patient's hab itual events of interest. Events are mostly characterized by unilateral arm irre gular/starting-stopping tremulousness with subsequent regional or contralateral propagation. There is wax/waning lateral head movement, followed by axial flexio n/extension (rocking/swaying movements), grimacing facial expression with eyes c losed and mouth open, crying/moaning vocalizations, dysarthric, halting and lala ture style speech. For all captured events, concurrent EEG recordings coincide w ith no epileptiform correlate. Clinical Correlation: Excessive diffuse beta a ctivity can be related to pharmacologic effects of the patient's medications. e documented semiologic features of prolonged event duration, waxing and waning event tempo, and associated emotional overlay with crying out/moaning are all ordonez pportive of a functional neurologic etiology to the captured non-epileptic event s. Care management summary: Careful exploration of Mrs. Sarmiento's presentat ion uncovered one predominant paroxysm of interest, which has variable/evolving intensity and clinical manifestations. Onset of these events was in 2016. She is sometimes able to warn her that a seizure is imminent although she is u nable to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 (test code = 413) 0 /100 WBC 0 -0 NEUTROPHILS RELATIVE PERCENT (BEAKER) (test code = 429) 57 % LYMPHOCYTES RELATIVE PERCENT (BEAKER) (test code = 430) 33 % MONOCYTES RELATIVE PERCENT (BEAKER) (test code = 431) 9 % EOSINOPHILS RELATIVE PERCENT (BEAKER) (test code = 432) 0 % BASOPHILS RELATIVE PERCENT (BEAKER) (test code = 437) 1 % NEUTROPHILS ABSOLUTE COUNT (BEAKER) (test code = 670) 3.56 K/ L 1.56-6.13 LYMPHOCYTES ABSOLUTE COUNT (BEAKER) (test code = 414) 2.06 K/ L 1.18-3.74 MONOCYTES ABSOLUTE COUNT (BEAKER) (test code = 415) 0.57 K/ L 0. 24-0.36 H EOSINOPHILS ABSOLUTE COUNT (BEAKER) (test code = 416) 0.01 K/ L 0.04-0.36 L BASOPHILS ABSOLUTE COUNT (BEAKER) (test code = 417) 0.03 K/ L 0. 01-0.08 IMMATURE GRANULOCYTES-RELATIVE PERCENT (BEAKER) (test code = 2801) 0 % 0-1
--- OUTSIDE RECORDS SUMMARY | 2019-11-09 10:05 | XMS REPORT | Summary of Care ---
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 [facility] [employer] [facility] ON Visit CLINICS LAB [facility] [address] , [address]; [address] [place] [address] Allergies Comments Active Allergy Reactions Severity Noted Date Azithromycin Itching 01/07/2019 Ciprofloxacin Rash 01/27/2018 Clindamycin Other - See Medium 10/05/2016 comments, Itching Clonazepam Itching, Medium 11/23/2017 Rash, Swelling All steroids-muscle weakness Corticosteroids Other - See 01/20/2016 (Glucocorticoids) comments Iodine Rash 10/05/2016 Lincomycin Rash Medium 09/15/2017 Nitrofurantoin Rash 01/27/2018 Other [place]ona-3s Anaphylaxis 01/27/2018 States it would be fatal Penicillins Other - See High 01/20/2016 comments, Shortness of Breath Shellfish Derived Other - See 03/18/2019 comments BActrim Rash Sulfamethizole Rash 07/05/2019 New string of tetanus- went to ER , medication for throat closing up Tetanus Vaccines And Swelling High 6 Toxoid documented as of this encounter (statuses as of 07/13/2019) Medications End Date Status Medication Sig Dispensed Refills Start Date Active cetirizine 10 mg tablet Take 10 mg by 3 mouth every 8 morning. Active LORazepam 0.5 mg tablet Take 0.5 mg 0 by mouth 8 daily. Active omeprazole 40 mg capsule TAKE 1 3 08/19 CAPSULE BY 9 MOUTH EVERY DAY Active VITAMIN D2 50,000 unit TAKE ONE 2 08/06/ 01 capsule CAPSULE BY 9 MOUTH ONCE A WEEK Active dicyclomine 20 mg tablet Take 20 mg by 0 06/27 mouth 4 9 (four) times daily. Active famotidine 20 mg tablet Take 20 mg by 0 mouth. 8 Active SERTraline 100 mg tablet Take 100 mg 0 by mouth. Active montelukast 10 mg tablet Take 10 mg by 0 10/31 mouth. 8 Active hydroCHLOROthiazide 25 mg Take 1 tablet 90 tablet 3 tabletIndications: by mouth 9 Hypertension, unspecified daily. type Active amitriptyline 10 mg Take 10 mg by 0 tablet mouth at bedtime. Active triamcinolone 55 mcg Use 1 [place] 1 Bottle 1 04/03 nasal inhalerIndications: in each 9 Viral URI with cough, nostril 2 Nasal sinus congestion (two) times daily. Active LISINOPRIL 5 mg TAKE 1 TABLET 30 tablet 1 04/06/20 1 tabletIndications: BY MOUTH 9 Essential hypertension EVERY DAY Active ketorolac 10 mg Take 1 tablet 10 tablet 0 04/11/20 1 tabletIndications: Chest by mouth 9 pain, unspecified type, every 6 (six) Atypical chest pain, hours as Psychogenic nonepileptic needed for seizure Pain (scale 4-6) or Pain (scale 7-10). Active SERTraline 25 mg Take one 60 tablet 1 tabletIndications: tablet by 9 Psychogenic nonepileptic mouth daily seizure Active carBAMazepine 200 mg 12 0 hr tablet 9 Active gabapentin 400 mg TAKE 1 90 capsule 2 07/13/19 2 capsuleIndications: CAPSULE BY 0 Radiculopathy of MOUTH THREE thoracolumbar region TIMES A DAY documented as of this encounter (statuses as of 07/13/2019) Active Problems Problem Noted Date Chronic lumbar radiculopathy 01/12/2019 Overview: Added automatically from request for ordonez 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 01/12/2019 Overview: Added automatically from request for josé luis silvestre [id number] Obesity (BMI 30-39.9) 12/16/2018 Recurrent UTI 05/17/2018 [...] as of this encounter (statuses as of 07/13/2019) Resolved Problems Problem Noted Date Resolved Date Spondylosis of lumbar region without myelopathy or radiculo johanna 01/12/2019 01/16/2019 Overview: Added automatically from request for josé luis silvestre [id number] documented as of this encounter (statuses as of 07/13/2019) Immunizations Name Administration Dates Next Due Influenza Virus Vaccine 04/21/2018, 03/21/2017 Influenza Virus Vaccine 04/17/2019 Quad .5 mL IM 6+ MO Influenza Virus Vaccine 04/19/2018 Quad ID 18-64 YRS Zoster Vaccine 04/17/2019 (Deferred: Vacci ne Unavailable) Recombinant documented as of this encounter Social History Date Tobacco Use Types Packs/Day Years Used Never Smoker Smokeless Tobacco: Never Used Drinks/Week oz/Week Comments Alcohol Use No Financial Resource Strain Answer Date Recorde d How hard is it for you to pay for the very basics Not hard at all 07/02/2019 like food, housing, medical care, and h eating? Food Insecurity Answer Date Recorded Within the past 12 months, you worried that your Never stephanie e 07/02/2019 food would run out before you got money to buy more. Within the past 12 months, the food you bought Never true 07/02/2019 just didn't last and you didn't have mo george to get more. Transportation Needs Answer Date Recorded In the past 12 months, has lack of transportation No 07/02/2019 kept you from medical appointments or f rom getting medications? In the past 12 months, has lack of transportation No 07/02/2019 kept you from meetings, work, or gettin g things needed for daily living? Sex Assigned at Date Recorded Not on file Industry Job Start Date Occupation Not on file Not on file Not on file Travel End Travel History Travel Start No recent travel history available. documented as of this encounter Last Filed Vital Signs Not on filedocumented in this encounter Plan of Treatment Care Team Description Date Type Specialty Boom Santiago MD [address] [place] [phone] 07/20/2019 Office Visit Cardiology Beth Marquez MD [address] [place] [phone] 07/21/2019 Office Visit Psychiatry Marvin Oconnor MD [address] [place] [address] Dr. Casanova [address] [place] [address] [phone] 08/21/2019 Office Visit Internal Medicine Zoila Rodas AGNP [address] [place] [phone] 09/06/2019 Office Visit Nephrology Eleno Mcnamara MD [address] [place] [address] [phone] 09/15/2019 Office Visit Obstetrics & Gyneco logSukh Lockwood MD [address] [place] [address] [id number] [place], [place] [phone] 11/23/2019 Office Visit Pain Medicine Dieter Zhou MD [address] [place] [address] [id number] [place], [place] [phone] 01/03/2020 Office Visit Pulmonary Disease Date/Time Name Type Priority Associated Diag noses 07/13/2019 4:19 PM [facility]LL [facility] URINALYSIS LAB Routine Dysuria 07/13/2019 4:19 PM [facility] URINE CULTURE LAB Routine Dysuria Health Maintenance Due Date Last Done Comments HEPATITIS C (HCV) SCREEN 1955 Zoster Recombinant 02/23/2006 Vaccine (SHINGRIX) (1 of 2) Breast Cancer Screening 08/08/2019 08/08/2018 (MAMMOGRAM) PAP SMEAR 08/02/2021 08/02/2018 COLONOSCOPY 06/22/2023 06/22/2018, 017 INFLUENZA VACCINE Completed 04/17/2019, 018, 03/21/2017 DTaP,Tdap,and Td Vaccines Discontinued PNEUMOCOCCAL 0-64 YEARS Discontinued COMBINED SERIES documented as of this encounter Results Not on filedocumented in this encounter Visit Diagnoses Diagnosis Dysuria documented in this encounter Insurance Type Payer Benefit Subscriber ID Effective Phone Address Plan / Dates Group [facility] [id number] 2019-P [address] [facility] [id number] [place] [address] documented as of this encounter
--- OUTSIDE RECORDS SUMMARY | 2019-11-09 10:05 | XMS REPORT | Summary of Care ---
Author Author [facility] - Health Organization [facility] - Health Address Unknown Phone Unavailable Care Team Providers Care Cement Cutter Name Role Phone Fabien Fernandes MD Unavailable Marvin Oconnor MD PCP Ulysses Lazar 25 Unavailable Reason for Visit * Reason Comments Pain Encounter Details Care Team Description Date Type Department Sukh Harris MD [id number] [place] [address] Spondylosis of lumbar region without mye lopathy or radiculopathy (Primary Dx); Radiculopathy of thoracolumbar region 07/13/2019 Office Visit [facility] - [address], [address] [place] [address] Allergies Comments Active Allergy Reactions Severity Noted Date Azithromycin Itching 01/07/2019 Ciprofloxacin Rash 01/27/2018 Clindamycin Other - See Medium 10/05/2016 comments, Itching Clonazepam Itching, Medium 11/23/2017 Rash, Swelling All steroids-muscle weakness Corticosteroids Other - See 01/20/2016 (Glucocorticoids) comments Iodine Rash 10/05/2016 Lincomycin Rash Medium 09/15/2017 Nitrofurantoin Rash 01/27/2018 Other [place]-3s Anaphylaxis 01/27/2018 States it would be fatal [...] bedtime. 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58 07/13/2019 1:10 PM TURF KEEPER Body Mass Index documented in this encounter Progress Notes * Sukh Harris MD - 07/13/2019 1:00 PM TURF KEEPER Chief Complaint:back pain in remission after the injection of medial branch ordonez pplying the facets on the right side.Seizures / psedoseizures persist and remain s to be the same problem History of Present illness: John Nieto is a 63 year old female with longstanding lower back pain. Has had problems with constipation.. 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 Location: generalized through the lower back, but also the thoracic and cervical spines and the head and scalp as well -duration: longstanding/for years -context: in the context of also psychogenic factors and pseudoseizures -radiation: equivocal -timing: longstanding -quality: rather generalized and nonspecific -improves with: medication -worsens with: certain movements PAIN NRS SCALE 0-10 SCORE OVER LAST WEEK (0 = no pain and 10 = worst pain imaginable): Best:3/10 Worst: 3/10 Now: 310 CURRENT PAIN REGIMEN: -Tylenol #3 one tablet [...] other systems reviewed and are normal. Physical Exam:BP (!) 147/92 | Pulse 92 | Ht 5' 1" (1.549 m) | Wt 183 lb (83 k g) | LMP (LMP Unknown) | BMI 34.58 kg/m GENERAL:John mark is a well developed, well [...] levels on 28t h of January 2019 still keeps her free from major pain issues. KEEPER documented in this encounter Plan of Treatment Care Team Description Date Type Specialty Marvin Oconnor MD [address] Casanova [address] [place] [phone] 07/13/2019 Office Visit Internal Medicine Boom Santiago MD [address] [place] [phone] 07/20/2019 Office Visit Cardiology Beth Marquez MD [address] [place] [phone] 07/21/2019 Office Visit Psychiatry Marvin Oconnor MD [address] Casanova [address] [place] [address] [phone] 08/07/2019 Office Visit Internal MechanicstownMarvin Oconnor MD [address] Casanova [address] [place] [address] 08/21/2019 Office Visit Internal Medicine Zoila Rodas AGNP [address] [place] [address] [phone] 09/06/2019 Office Visit Nephrology Eleno Mcnamara MD [address] [place] [address] [phone] 09/15/2019 Office Visit Obstetrics & Gyneco johan Zhou, Dieter Vazquez MD [address] [place] [address] [id number] [place], [place] [phone] 01/03/2020 Office Visit Pulmonary Disease Health Maintenance Due [...] Diagnoses Diagnosis Spondylosis of lumbar region without my elopathy or radiculopathy - Primary Lumbosacral spondylosis without myelopa thy Radiculopathy of thoracolumbar region Thoracic or lumbosacral neuritis or rad iculitis, unspecified documented in this encounter Insurance Type Payer Benefit Subscriber ID Effective Phone Address Plan / Dates Group [facility] [id number] 2019-P [address] [facility] [id number] [place] [address] documented as of this encounter
--- OUTSIDE RECORDS SUMMARY | 2019-11-09 10:05 | XMS REPORT | Summary of Care ---
Author Author [facility] - Health Organization [facility] - Health Address Unknown Phone Unavailable Care Team Providers Care Retail Loss Prevention Investigator Name Role Phone Fabien Fernandes MD Unavailable Marvin Oconnor MD PCP Ulysses Lazar 25 Unavailable Reason for Visit * Reason Comments Pain Encounter Details Care Team Description Date Type Department Sukh Harris MD [id number] [place] [address] Spondylosis of lumbar region without mye lopathy or radiculopathy (Primary Dx); Radiculopathy of thoracolumbar region 07/13/2019 Office Visit [facility] - [address], [address] [place] [address] Allergies Comments Active Allergy Reactions Severity Noted Date Azithromycin Itching 01/07/2019 Ciprofloxacin Rash 01/27/2018 Clindamycin Other - See Medium 10/05/2016 comments, Itching Clonazepam Itching, Medium 11/23/2017 Rash, Swelling All steroids-muscle weakness Corticosteroids Other - See 01/20/2016 (Glucocorticoids) comments Iodine Rash 10/05/2016 Lincomycin Rash Medium 09/15/2017 Nitrofurantoin Rash 01/27/2018 Other [place]-3s Anaphylaxis 01/27/2018 States it would be fatal [...] bedtime. 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 01/12/2019 Overview: Added automatically from request for josé luis silvestre [id number] Obesity (BMI 30-39.9) 12/16/2018 Recurrent UTI 05/17/2018 [...] automatically from request for josé luis silvestre [id number] documented as of this encounter (statuses as [...] Comments Vital Sign 147/92 07/13/2019 1:10 PM PAROLE HEARING OFFICER Blood Pressure 92 07/13/2019 1:10 PM PAROLE HEARING OFFICER Pulse - - Temperature - - Respiratory Rate - - Oxygen Saturation - - Inhaled Oxygen Concentration 83 kg (183 lb) 07/13/2019 1:10 PM PAROLE HEARING OFFICER Weight 154.9 cm (5' 1") 07/13/2019 1:10 PM PAROLE HEARING OFFICER Height 34.58 07/13/2019 1:10 PM PAROLE HEARING OFFICER Body Mass Index documented in this encounter Progress Notes * Sukh Harris MD - 07/13/2019 1:00 PM PAROLE HEARING OFFICER Chief Complaint:back pain in remission after the [...] keeps her free from major pain issues. LE HEARING OFFICER documented in this encounter Plan of Treatment Care Team Description Date Type Specialty Marvin Oconnor MD [address] [place] [address] [place] [address] 07/13/2019 Office Visit Internal Medicine Boom Santiago MD [address] [place] [phone] 07/20/2019 Office Visit Cardiology Beth Marquez MD [address] [place] [phone] 07/21/2019 Office Visit Psychiatry Marvin Oconnor MD [address] [place] [address] [place] [phone] 08/07/2019 Office Visit Internal [place] O[place] MD [address] [place] [address] [place] [address] 08/21/2019 Office Visit Internal Medicine Zoila Rodas AGNP [address] [place] [address] [phone] 09/06/2019 Office Visit Nephrology Eleno Mcnamara MD [address] [place] [address] [phone] 09/15/2019 Office Visit Obstetrics & Gyneco johan Zhou, Dieter Vazquez MD [address] [place] [address] [id number] [place], [place] [phone] 01/03/2020 Office Visit Pulmonary Disease Health Maintenance [...] Effective Phone Address Plan / Dates Group [facility] [id number] 2019-P [address] [facility] [id number] [place] [address] documented as of this encounter
--- OUTSIDE RECORDS SUMMARY | 2019-11-09 10:05 | XMS REPORT | Summary of Care ---
Author Author [facility] - Health Organization [facility] - Health Address Unknown Phone Unavailable Care Team Providers Care Rn Quality Name Role Phone Fabien Fernandes MD Unavailable Marvin Oconnor MD PCP lUysses Lazar 25 Unavailable Reason for Visit * Reason Comments Urinary Problem Encounter Details Care Team Description Date Type Department Marvin Oconnor MD [address] [place] [address] Dysuria (Primary Dx); Pseudoseizure 07/13/2019 [facility] [address] [place] [address] Allergies Comments Active Allergy Reactions Severity Noted Date Azithromycin Itching 01/07/2019 Ciprofloxacin Rash 01/27/2018 Clindamycin Other - See Medium 10/05/2016 comments, Itching Clonazepam Itching, Medium 11/23/2017 Rash, Swelling All steroids-muscle weakness Corticosteroids Other - See 01/20/2016 (Glucocorticoids) comments Iodine Rash 10/05/2016 Lincomycin Rash Medium 09/15/2017 Nitrofurantoin Rash 01/27/2018 Other [place]-3s Anaphylaxis 01/27/2018 States it would be fatal Penicillins Other - See High 01/20/2016 comments, Shortness of Breath Shellfish Derived Other - See 03/18/2019 comments BActrim Rash Sulfamethizole Rash 07/05/2019 New string of tetanus- went to ER , medication for throat closing up Tetanus Vaccines And Swelling High 6 Toxoid documented as of this encounter (statuses as of 07/14/2019) Medications End Date Status Medication Sig Dispensed [...] bedtime. 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 01/12/2019 Overview: Added automatically from request for ordonez rgery [id number] Obesity (BMI 30-39.9) 12/16/2018 Recurrent UTI 05/17/2018 [...] as of this encounter (statuses as of 07/14/2019) Resolved Problems Problem Noted Date Resolved Date Spondylosis of lumbar region without myelopathy or radiculo johanna 01/12/2019 01/16/2019 Overview: Added automatically from request for ordonez rgery [id number] documented as of this encounter (statuses as of 07/14/2019) Immunizations Name Administration Dates Next Due Influenza [...] Signs Reading Time Taken Comments Vital Sign 159/79 07/13/2019 3:05 PM LOFT WORKER HEAD Blood Pressure 86 07/13/2019 3:05 PM LOFT WORKER HEAD Pulse 37 C (98.6 F) 07/13/2019 3:05 PM LOFT WORKER HEAD Temperature 18 07/13/2019 3:05 PM LOFT WORKER HEAD Respiratory Rate 95% 07/13/2019 3:05 PM LOFT WORKER HEAD RA Oxygen Saturation - - Inhaled Oxygen Concentration 83.5 kg (184 lb) 07/13/2019 3:05 PM LOFT WORKER HEAD Weight 154.9 cm (5' 1") 07/13/2019 3:05 PM LOFT WORKER HEAD Height 34.77 07/13/2019 3:05 PM LOFT WORKER HEAD Body Mass Index documented in this encounter Progress Notes * Marvin Oconnor MD - 07/13/2019 3:00 PM LOFT WORKER HEAD [facility] Note CC: Dysuria HPI: John Nieto is a 64 year old female with PMH of non-epileptic seizure, ch ronic interstitial cystitis, HTN, HLD,multiple drug allergies, osteoporosis, anxiety/depression, seasonal allergies, kidney stones presents for hospital and ED follow up. Patient was admitted on 07/02 for pseudoseizures, was observed and evaluated by neurology and discharged on 07/03. She was having some UTI symptoms so was given prescription of bactrim. She later broke out into a rash in bila teral legs so she presented to the ED where she was given benadryl and observed. She was not given any steroids as patient reported an allergy to every formula tion. Patient was stable so patient was sent home and bactrim was added to her allergy list. Of note, patient was seen by pulm on 07/05, was doing well breathing green without any inhalers so they were removed from her medication list and planned to be ob served. Diagnosis of DIPNECH is still in consideration. Also, EGD was done by [facility] on 06/06/19 as f/u for gastric polyps found in the past. It showed small hiatal hernia, mucosal erythema suggestive of gastritis, and several gastric po lyps largest was 11-15 mm that was removed by hot snare. Plans to /f/u next wed of the biopsy. Results of EGD have been submitted to be scanned into chart. Patient complains today again of bladder pain with urination before, during and after urination with associated high frequency of urination. She seems to have these symptoms with every clinic visit, UA not always reflecting a UTI. Current ly follows closely with urogyn for bladder pain syndrome, had been getting bladd er installations which have not been helpful with symptoms. Both patient and Osmin notes seizures have been happening more frequently , always daily and often more than dozen episodes a day. Both are frustrated th at no one is able to help them and they are always told by different doctors kayla t this is either fake, non-life threatening or some other doctor's job. Medications: Current Outpatient Medications Medication Sig gabapentin 400 mg capsule TAKE 1 CAPSULE BY MOUTH THREE TIMES A DAY carBAMazepine 200 mg 12 hr tablet SERTraline 25 mg tablet Take one tablet by mouth daily ketorolac 10 mg tablet Take 1 tablet by mouth every 6 (six) hours as needed for Pain (scale 4-6) or Pain (scale 7-10). LISINOPRIL 5 mg tablet TAKE 1 TABLET BY MOUTH EVERY DAY triamcinolone 55 mcg nasal inhaler Use 1 Senath in each nostril 2 (two) times daily. amitriptyline 10 mg tablet Take 10 mg by mouth at bedtime. hydroCHLOROthiazide 25 mg tablet Take 1 tablet by mouth daily. famotidine 20 mg tablet Take 20 mg by mouth. montelukast 10 mg tablet Take 10 mg by mouth. SERTraline 100 mg tablet Take 100 mg by mouth. dicyclomine 20 mg tablet Take 20 mg by mouth 4 (four) times daily. omeprazole 40 mg capsule TAKE 1 CAPSULE BY MOUTH EVERY DAY VITAMIN D2 50,000 unit capsule TAKE ONE CAPSULE BY MOUTH ONCE A WEEK cetirizine 10 mg tablet Take 10 mg by mouth every morning. LORazepam 0.5 mg tablet Take 0.5 mg by mouth daily. PMHx: Past Medical History: Diagnosis Date Depression Frequent falls Hyperlipidemia Hypertension IBS (irritable bowel syndrome) Low back pain Osteoporosis b/l hip Seizure (nonepileptic psychogenic) PSurgical Hx: Past Surgical History: Procedure Laterality Date CHOLECYSTECTOMY HYSTERECTOMY MEDIAL BRANCH BLOCK (SHX) Right 01/23/2019 Surgeon: Sukh Harris MD; Location: [facility] RADIOFREQUENCY THERMOCOAGULATION N/A 02/15/2019 Surgeon: Sukh Harris MD; Location: [facility] Location TONSILLECTOMY Family Hx: Family History Problem Relation Age of Onset Heart Mother Hypertension Mother Diabetes Father Hypertension Father Social Hx: Social History Tobacco Use Smoking status: Never Smoker Smokeless tobacco: Never Used Substance Use Topics Alcohol use: No Drug use: No ROS: Gen: Negative Eyes: Negative ENT: Negative CV: Negative Resp: Negative GI: Negative : Dysuria, urinary freqency Musc: Low back pain Skin: Negative Psych/Neuro: Frequent seizures Endo: Negative Heme/Lymph: Negative Allerg/Imm: Negative PE: Vitals: Blood pressure (!) 159/79, pulse 86, temperature 37 C (98.6 F), tem perature source Oral, resp. rate 18, height 5' 1" (1.549 m), weight 184 lb (83.5 kg), SpO2 95 %. General: no acute distress and alert, obese Eyes: PERRL and EOMI ENT: pharynx normal, no thyromegaly Cardiovascular: Heart regular, rate, rhythm, no murmurs; no edema Respiratory: clear to auscultation, no respiratory distress GI: abd soft, non-tender, non-distended, +BS, no HSM Musc: no spinal or paraspinal TTP, no joint effusions, strength 5/5 x4, gait nor mal Skin: intact and warm, dry Neuro: initially was convulsing head, both arms and legs but was still able to c ommunicate and respond to questioning with arm gestures, facial expressions Psych: After seizure resolution, cooperative and mood/affect normal Heme / Lymph / Imm: no lymphadenopathy Chart Review (Labs / Radiology): CBC, BMP from 07/05/19 reviewed, wnl Assessment / Plan: John Nieto is a 64 year old female presents to clinic today for: Dysuria (primary encounter diagnosis) Comment: most likely continuation of her known chronic interstitial cystitis. V carrie limited in the number of abx choices because of her extensive allergy list e prosper if UTI is found. Apparently Cefuroxime prescribed by Dr. Mcnamara on 06/19 was t olerated well, will use for future infections. Plan: - obtain screening: URINALYSIS, URINE CULTURE - f/u w/ urogyn for management of her CIC Pseudoseizure Comment: Had 10-15 minute episode in clinic today, was able to communicate and r espond with grunts, facial expressions and hand gestures while her entire body w as convulsing which is consistent with her known diagnosis of pseudoseizure. Wi ll need close f/u and management by her psychiatry team. She had been told by [facility] ED providers to establish with neurology but I believe this would be of l imited utility. Plan: - c/w psychiatry f/u - agree with their plan of zoloft 25 mg daily, remeron 22.5 mg qhs, melatonin 3 mg qhs prn - c/w psychotherapy by [facility] - flu vaccine 04/17/19 - shingrix deferred; readdress next visit - allergic to Tdap - Colonoscopydone, 08/2016 Dr. Kianna Hoyt, found hemorrhoids and polyps, plan to repeat in 5 years - pap smear done 08/02/18 - mammogram done 08/08/18 Follow-up: 4 months Marvin Oconnor MD WORKER HEAD documented in this encounter Plan of Treatment Care Team Description Date Type Specialty Boom Santiago MD [address] [place] [phone] 07/20/2019 Office Visit Cardiology Beth Marquez MD [address] [place] [address] [phone] 07/21/2019 Office Visit Psychiatry Marvin Oconnor MD [address] [place], [place] [phone] 08/21/2019 Office Visit Internal Medicine Zoila Rodas AGNP [address] [place] [address] [phone] 09/06/2019 Office Visit Nephrology Eleno Mcnamara MD [address] [place] [address] [phone] 09/15/2019 Office Visit Obstetrics & Gyneco Sukh Rocha MD [address] [facility] [id number] [place], [place] [phone] 11/23/2019 Office Visit Pain Medicine Dieter Zhou MD [address] [facility] [id number] [place], [place] [phone] 01/03/2020 Office Visit Pulmonary Disease Date/Time Name Type Priority Associated Diag noses 07/13/2019 4:19 PM LOFT WORKER HEAD URINE CULTURE LAB Routine Dysuria Order Schedule Name Type Priority Associated Diag noses Expected: 07/13/2019, Expires: 1 URINE CULTURE LAB Routine Dysuria Health Maintenance Due Date Last Done Comments HEPATITIS C (HCV) SCREEN 1955 Zoster Recombinant 02/23/2006 Vaccine (SHINGRIX) (1 of 2) Breast Cancer Screening 08/08/2019 08/08/2018 (MAMMOGRAM) PAP SMEAR 08/02/2021 08/02/2018 COLONOSCOPY 06/22/2023 06/22/2018, 017 INFLUENZA VACCINE Completed 04/17/2019, 018, 03/21/2017 DTaP,Tdap,and Td Vaccines Discontinued PNEUMOCOCCAL 0-64 YEARS Discontinued COMBINED SERIES documented as of this encounter Results * URINALYSIS (07/13/2019 4:19 PM LOFT WORKER HEAD) APPEARANCE Hazy (A) Clear [facility] COLOR Yellow Yellow [facility] PH 5.0 4.8 - 8.0 [facility] SP GRAVITY 1.024 1.003 - 1.030 [facility] GLU U QUAL Normal Normal [facility] BLOOD Negative Negative [facility] KETONES Negative Negative [facility] PROTEIN 30 mg/dL (A) Negative [facility] UROBILIN Normal Normal [facility] BILIRUBIN Negative Negative [facility] NITRITE Negative Negative [facility] LEUK MICHAEL Negative Negative [facility] RBC/HPF 1 0 - 3 HPF [facility] WBC/HPF 1 0 - 5 HPF [facility] BACTERIA Negative Negative [facility] MUCOUS Moderate (A) Negative LPF [facility] SQ EPITH 18 (H) <=2 HPF [facility] Specimen Urine - URINE, CLEAN CATCH Performing Organization Address City/State/Zipcode Ph one Number [facility] CLIA: [id number], [address] [place] [address] [facility] documented in this encounter Visit Diagnoses Diagnosis Dysuria - Primary Pseudoseizure Other convulsions documented in this encounter Insurance Type Payer Benefit Subscriber ID Effective Phone Address Plan / Dates Group HMO [facility] [id number] 2019-P [address] [facility] [id number] [place] [address] documented as of this encounter
--- OUTSIDE RECORDS SUMMARY | 2019-11-09 10:05 | XMS REPORT | Summary of Care ---
Author Author [facility] - Health Organization [facility] - Health Address Unknown Phone Unavailable Care Team Providers Care Plastic Fixture Builder Name Role Phone Fabien Fernandes MD Unavailable Marvin Oconnor MD PCP [place] Team 25 Unavailable Encounter Details Care Team Description Date Type Department Doctor Unassigned, [place] [address] [place] [address] 07/28/[address] [facility] [address] [place] [address] Allergies Comments Active Allergy Reactions Severity Noted Date Azithromycin Itching 01/07/2019 Ciprofloxacin Rash 01/27/2018 Clindamycin Other - See Medium 10/05/2016 comments, Itching Clonazepam Itching, Medium 11/23/2017 Rash, Swelling All steroids-muscle weakness Corticosteroids Other - See 01/20/2016 (Glucocorticoids) comments Iodine Rash 10/05/2016 Lincomycin Rash Medium 09/15/2017 Nitrofurantoin Rash 01/27/2018 Other [place]-3s Anaphylaxis 01/27/2018 States it would be fatal Penicillins Other - See High 01/20/2016 comments, Shortness of Breath Shellfish Derived Other - See 03/18/2019 comments BActrim Rash Sulfamethizole Rash 07/05/2019 New string of tetanus- went to ER , medication for throat closing up Tetanus Vaccines And Swelling High 6 Toxoid documented as of this encounter (statuses as of 07/28/2019) Medications End Date Status Medication Sig Dispensed Refills Start Date Active cetirizine 10 mg tablet Take 10 mg by 3 mouth every 8 morning. Active omeprazole 40 mg capsule 40 mg 2 (two) 3 08/19 times daily. 9 Active VITAMIN D2 50,000 unit TAKE ONE 2 02/16/2 01 capsule CAPSULE BY 9 MOUTH ONCE A WEEK Active dicyclomine 20 mg tablet Take 20 mg by 0 06/27 mouth 4 9 (four) times daily. Active famotidine 40 mg tablet Take 40 mg by 0 mouth 2 (two) 8 times daily. Active montelukast 10 mg tablet Take 10 mg by 0 10/31 mouth. 8 Active hydroCHLOROthiazide 25 mg Take 1 tablet 90 tablet 3 tabletIndications: by mouth 9 Hypertension, unspecified daily. type Active gabapentin 400 mg TAKE 1 90 capsule 2 07/13/19 2 capsuleIndications: CAPSULE BY 0 Radiculopathy of MOUTH THREE thoracolumbar region TIMES A DAY Active SERTraline 50 mg Take one 30 tablet 2 tabletIndications: tablet by 0 Psychogenic nonepileptic mouth daily seizure Active coenzyme Q10 100 mg Take 100 mg 0 softgel by mouth. 0 Active hydrOXYzine 25 mg tablet Take 25 mg by 0 mouth 2 (two) times daily. Active cannabidiol, CBD, Take by 0 (CANNABIDIOL ORAL) mouth 3 (three) times daily as needed. 08/03/2019 Active cefUROXime 250 mg Take 1 tablet 14 tablet 0 tabletIndications: by mouth 2 0 Dysuria (two) times daily for 7 days. 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 01/12/2019 Overview: Added automatically from request for ordonez rgery [id number] Obesity (BMI 30-39.9) 12/16/2018 Recurrent UTI 05/17/2018 [...] as of this encounter (statuses as of 07/28/2019) Resolved Problems Problem Noted Date Resolved Date Spondylosis of lumbar region without myelopathy or radiculo johanna 01/12/2019 01/16/2019 Overview: Added automatically from request for josé luis silvestre [id number] documented as of this encounter (statuses as of 07/28/2019) Immunizations Name Administration Dates Next Due Influenza Virus Vaccine 04/21/2018, 03/21/2017 Influenza Virus Vaccine 04/17/2019 Quad .5 mL IM 6+ MO Influenza Virus Vaccine 04/19/2018 Quad ID 18-64 YRS Zoster Vaccine 07/26/2019 Recombinant documented as of this encounter Social [...] Specialty Dieter Zhou MD [id number] [place] [address] [phone] Test, Vtc Pulmonary Function 07/28/2019 Steam And Power Superintendent Pulmonary Function Visit Technologist Della, Laurie, HISTORY FACULTY MEMBER [address] [place], [place] [phone] 08/03/2019 Office Visit Psychiatry Marvin Oconnor MD [address] [place], [place] [phone] 08/21/2019 Office Visit Internal Medicine Zoila Rodas AGNP [address] [place] [address] [phone] 09/06/2019 Office Visit Nephrology Beth Marquez MD [address] [place] [phone] 09/07/2019 Office Visit Psychiatry Kashif Cee MD [address] [place] [phone] 09/14/2019 Office Visit Neurology Eleno Mcnamara MD [address] [place] [address] [phone] 09/15/2019 Office Visit Obstetrics & Gyneco logy Sukh Harris MD [address] [place] [address] [id number] [place], [place] [phone] 11/23/2019 Office Visit Pain Medicine Dieter Zhou MD [address] [place] [address] [id number] [place], [place] [phone] 01/03/2020 Office Visit Pulmonary Disease Health Maintenance Due Date Last Done Comments HEPATITIS C (HCV) SCREEN 1955 Breast Cancer Screening 08/08/2019 08/08/2018 (MAMMOGRAM) Zoster Recombinant 09/20/2019 07/26/2019 Vaccine (SHINGRIX) (2 of 2) PAP SMEAR 08/02/2021 08/02/2018 COLONOSCOPY 06/22/2023 06/22/2018, 017 INFLUENZA VACCINE Completed 04/17/2019, 018, 03/21/2017 DTaP,Tdap,and Td Vaccines Discontinued PNEUMOCOCCAL 0-64 YEARS Discontinued COMBINED SERIES documented as of this encounter Procedures Comments Procedure Name Priority Date/Time Associated Diag nosis EXTERNAL PROVIDER RECORDS Routine 07/28/2019 12:01 AM GEOTHERMAL HEAT PUMP MACHINIST EXTERNAL PROVIDER RECORDS Routine 07/28/2019 12:01 AM GEOTHERMAL HEAT PUMP MACHINIST documented in this encounter Results Not on filedocumented in this encounter Insurance Type Payer Benefit Subscriber ID Effective Phone Address Plan / Dates Group [facility] [id number] 2019-P [address] [facility] [address] [place] [address] documented as of this encounter
--- OUTSIDE RECORDS SUMMARY | 2019-11-09 10:05 | XMS REPORT | Clinical Summary ---
Author Author [facility] - [facility] Organization [facility] - [facility] Address Unknown Phone Unavailable Care Team Providers Care Visiting Professor Name Role Phone Fabien Fernandes MD Unavailable [...] Rash Medium 09/15/2017 Nitrofurantoin Rash 01/27/2018 Other [place]-3s Anaphylaxis 01/27/2018 States it would be fatal [...] VITAMIN D2 50,000 unit TAKE ONE 2 08/06/2 01 capsule CAPSULE BY 9 MOUTH ONCE A WEEK Active dicyclomine 20 mg tablet Take 20 mg by 0 06/27 mouth 4 9 (four) times daily. Active famotidine 20 mg tablet Take 20 mg by 0 11/03/ 201 mouth. 8 Active SERTraline 100 mg tablet Take 100 mg 0 by mouth. Active montelukast 10 mg tablet Take 10 mg by 0 10/31 mouth. 8 Active hydroCHLOROthiazide 25 mg Take 1 tablet 90 tablet 3 tabletIndications: by mouth 9 Hypertension, unspecified daily. type Active amitriptyline 10 mg Take 10 mg by 0 tablet mouth at bedtime. Active triamcinolone 55 mcg Use 1 [place] 1 Bottle 1 04/03 nasal inhalerIndications: in [...] (scale 4-6) or Pain (scale 7-10). Active carBAMazepine 200 mg 12 0 hr tablet 9 Active gabapentin 400 mg TAKE 1 90 capsule 2 07/13/19 2 capsuleIndications: CAPSULE BY 0 Radiculopathy of MOUTH THREE thoracolumbar region TIMES A DAY Active SERTraline 50 mg Take one 30 tablet 2 tabletIndications: tablet by 0 Psychogenic nonepileptic mouth daily seizure 06/26/2019 cefUROXime 500 mg Take 1 tablet 14 tablet 0 tabletIndications: by mouth 2 9 Recurrent UTI (urinary (two) times tract infection) daily for 7 days. 07/10/2019 sulfamethoxazole-trimetho Take 1 tablet 14 tablet 0 prim 800-160 mg per by mouth 2 0 tabletIndications: (two) times Psychogenic nonepileptic daily for 7 seizure, Urinary tract days. 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 01/12/2019 Overview: [facility] [id number] Obesity (BMI 30-39.9) 12/16/2018 Recurrent UTI 05/17/2018 [...] automatically from request for josé luis silvestre [id number] Encounters Care Team Description Date Type Specialty Boom Santiago MD Palpitations (Primary Dx) 07/20/2019 Office Visit Cardiology Doctor Unassigned, [place] 07/17/2019 Orders Only Marvin Oconnor MD Results 07/14/2019 Telephone Internal [place]vin Oconnor MD Pcp-Lab Dysuria 07/13/2019 Sanitarian Aide Phlebotomy Visit Marvin Oconnor MD Dysuria (Primary Dx); Pseudoseizure 07/13/2019 Office Visit Internal Medicine Sukh Harris MD Spondylosis of lumbar region without mye lopathy or radiculopathy (Primary Dx); Radiculopathy of thoracolumbar region 07/13/2019 Office Visit Pain Medicine Cecilio Aceves MD Rash (Primary Dx); Psychogenic nonepileptic seizure; Acute stress reaction 07/05/2019 Emergency Emergency Medicine Dieter Zhou MD Dyspnea on exertion (Primary Dx); Lung nodule; Gastroesophageal reflux disease without esophagitis; Other chronic gastritis, presence of bleeding unspecified 07/05/2019 Office Visit Pulmonary Disease Eli Hurley DO Albustami, Omar, MD Armstrong, Robin, MD Eisenberg, Michael, MD Seizure 07/02/2019 Emergency Medicine - Inpatien t only - 07/03/2019 Yudy Fernandes MD Pcp-Lab Urinary frequency; Dysuria 06/30/2019 Sanitarian Aide Phlebotomy Visit Unknown, Attending Yudy Fernandes MD Castillo, Jorge, MD Urinary frequency (Primary Dx); Dysuria; Convulsions, unspecified convulsion type 06/30/2019 Office Visit Internal Medicine Goldie Culver RN 06/29/2019 Abstract Public Health & [facility] Preventive Medicine Doctor Unassigned, [place] 06/22/2019 Orders Only Eleno Mcnamara MD Notification (of medication filled) 06/19/2019 Telephone Obstetrics & Gyneco logy Eleno Mcnamara MD Recurrent UTI (urinary tract infection) (Primary Dx) 06/16/2019 Office Visit Obstetrics & Gyneco logy Ramiro Wright FNP Acute cystitis with hematuria (Primary D x) 06/02/2019 Emergency Emergency Medicine Eleno Mcnamara MD Assessment 06/02/2019 Telephone Obstetrics & Gyneco logy Ciara Merrill FNP Notification 06/01/2019 Telephone Urology Isak Varner FNP Lab Results 06/01/2019 Telephone Family Medicine Leticia Handy MD Surgery Clearance 05/29/2019 Telephone Internal Medicine Isak Varner FNP Results 05/26/2019 Telephone Family Medicine Unknown, Attending Doug Egan FNP Urinary tract infection without hematuri a, site unspecified (Primary Dx); Yeast infection; Cough; Seizure 05/24/2019 Urgent Care Family [place]Marvin Oconnor MD Assessment; FLU; URINARY TRACT INFECTION ; Bladder Pain 05/24/2019 Telephone Internal Medicine Mauricio Yip MD Results 05/23/2019 Telephone Cardiology Leticia Handy MD Medical Records ([facility] ) 05/17/2019 Telephone Internal Medicine Ciara Merrill FNP 05/15/2019 Hospital Radiology Encounter Sukh Harris MD Refill Request 05/15/2019 Telephone Pain Medicine Ciara Merrill FNP Xray Results 05/15/2019 Telephone Urology Mauricio Yip MD Surgery Clearance 05/12/2019 Telephone Cardiology Doctor Unassigned, [place] 05/12/2019 Orders Only Doctor Unassigned, [place] 05/08/2019 Orders Only Ciara Merrill FNP Recurrent UTI (Primary Dx); Right flank pain 05/04/2019 Office Visit Urology Eleno Mcnamara MD Rx Concern/Question (Medication) 05/03/2019 Telephone Obstetrics & Gyneco Mauricio Dobson MD Monitor, [facility] Holter 05/02/2019 Hospital Heart Station Encounter Doctor Unassigned, [place] 05/02/2019 Orders Only Eleno Mcnamara MD Recurrent UTI (urinary tract infection) (Primary Dx); Pain pelvic 05/01/2019 Office Visit Obstetrics & Gyneco Belinda Cook, [employer] Psychogenic nonepileptic seizure (Primar y Dx) 04/29/2019 Emergency Emergency Medicine Gerber Ni MD Nurse, s [facility] Chronic interstitial cystitis (Primary D x) 04/26/2019 Nurse Visit Obstetrics & Gyneco Mauricio Dobson MD 1, [facility] Echo Room 1, [facility] 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 04/25/2019 Hospital Echocardiograph Encounter from Last 3 Months Immunizations Name Administration [...] No Drinks/Week oz/Week Comments Alcohol Use No Financial [...] Signs Reading Time Taken Comments Vital Sign 139/81 07/21/2019 1:04 PM GAMING TABLE OPERATOR Blood Pressure 94 07/21/2019 1:04 PM GAMING TABLE OPERATOR Pulse 37 C (98.6 F) 07/13/2019 3:05 PM GAMING TABLE OPERATOR Temperature 18 07/21/2019 1:04 PM GAMING TABLE OPERATOR Respiratory Rate 94% 07/20/2019 11:15 AM GAMING TABLE OPERATOR Oxygen Saturation - - Inhaled Oxygen Concentration 81.6 kg (180 lb) 07/21/2019 1:04 PM GAMING TABLE OPERATOR Weight 154.9 cm (5' 1") 07/21/2019 1:04 PM GAMING TABLE OPERATOR Height 34.01 07/21/2019 1:04 PM GAMING TABLE OPERATOR Body Mass Index Plan of Treatment Care Team Description Date Type Specialty Test, Vtc Pulmonary Function 07/28/2019 Sanitarian Aide Pulmonary Function Visit Technologist Marvin Oconnor MD [address] [place] [address] [phone] 08/21/2019 Office Visit Internal Medicine Zoila Rodas AGNP [address] [place] [address] [phone] 09/06/2019 Office Visit Nephrology Kashif Cee MD [address] [place] [address]. [place] [address] 09/14/2019 Office Visit Neurology Eleno Mcnamara MD [address] [place] [address] [phone] 09/15/2019 Office Visit Obstetrics & Gyneco rowenay Sukh Harris MD [address] [facility] [id number] [place], [place] [id number] 11/23/2019 Office Visit Pain Medicine Dieter Zhou MD [address] [facility] [id number] [place], [place] [id number] 01/03/2020 Office Visit Pulmonary Disease Health Maintenance Due Date Last Done Comments HEPATITIS C (HCV) SCREEN 1955 Zoster Recombinant 02/23/2006 Vaccine (SHINGRIX) (1 of 2) Breast Cancer Screening 08/08/2019 08/08/2018 (MAMMOGRAM) PAP SMEAR 08/02/2021 08/02/2018 COLONOSCOPY 06/22/2023 06/22/2018, 017 INFLUENZA VACCINE Completed 04/17/2019, 018, 03/21/2017 DTaP,Tdap,and Td Vaccines Discontinued PNEUMOCOCCAL 0-64 YEARS Discontinued COMBINED SERIES Procedures Comments Procedure Name Priority Date/Time Associated Diag nosis EKG-12 LEAD Routine 07/20/2019 11:23 AM GAMING TABLE OPERATOR EXTERNAL PROVIDER RECORDS Routine 07/17/2019 12:01 AM GAMING TABLE OPERATOR URINE CULTURE Routine 07/13/2019 Dysuria 4:19 PM GAMING TABLE OPERATOR URINALYSIS Routine 07/13/2019 Dysuria 4:19 PM GAMING TABLE OPERATOR EXTERNAL PROVIDER RECORDS Routine 07/11/2019 12:01 AM GAMING TABLE OPERATOR CBC WITH DIFFERENTIAL STAT 07/05/2019 Rash 1:35 PM GAMING TABLE OPERATOR CBC WITH DIFFERENTIAL STAT 07/05/2019 Rash 1:35 PM GAMING TABLE OPERATOR BASIC METABOLIC PANEL STAT 07/05/2019 Rash (NA, K, CL, CO2, GLUCOSE, 1:35 PM GAMING TABLE OPERATOR BUN, CREATININE, CA) EMERGENCY SERVICES Routine 07/05/2019 AGREEMENTS AND 12:01 AM GAMING TABLE OPERATOR AUTHORIZATIONS EXTRA TUBE URINE CULTURE Routine 07/02/2019 9:54 AM GAMING TABLE OPERATOR URINALYSIS STAT 07/02/2019 Cough 9:54 AM GAMING TABLE OPERATOR XR CHEST 1 VW STAT 07/02/2019 Cough 7:58 AM GAMING TABLE OPERATOR EXTRA TUBE LT. BLUE STAT 07/02/2019 7:40 AM GAMING TABLE OPERATOR CBC WITH DIFFERENTIAL STAT 07/02/2019 Cough 7:40 AM GAMING TABLE OPERATOR COMP. METABOLIC PANEL STAT 07/02/2019 Cough (71153) 7:40 AM GAMING TABLE OPERATOR CBC WITH DIFFERENTIAL Routine 07/02/2019 Cough 7:40 AM GAMING TABLE OPERATOR CONSENT/REFUSAL FOR Routine 07/02/2019 DIAGNOSIS AND TREATMENT 7:08 AM GAMING TABLE OPERATOR HOSPITAL ADMISSION Routine 07/02/2019 12:01 AM GAMING TABLE OPERATOR URINALYSIS JAMES 06/30/2019 Urinary frequen cy 2:37 PM GAMING TABLE OPERATOR Dysuria URINE CULTURE JAMES 06/30/2019 Urinary frequen cy 2:37 PM GAMING TABLE OPERATOR Dysuria EXTERNAL PROVIDER RECORDS Routine 06/22/2019 12:01 AM GAMING TABLE OPERATOR URINE CULTURE Routine 06/16/2019 Recurrent UTI ( urinary 11:12 AM GAMING TABLE OPERATOR tract infection) POCT URINALYSIS Routine 06/16/2019 Recurrent UTI (urinary 11:05 AM GAMING TABLE OPERATOR tract infection) EXTRA TUBE URINE CULTURE STAT 06/02/2019 7:24 PM GAMING TABLE OPERATOR EXTRA TUBE LT. BLUE STAT 06/02/2019 7:24 PM GAMING TABLE OPERATOR CBC WITH DIFFERENTIAL STAT 06/02/2019 Acute cy stitis with 7:24 PM GAMING TABLE OPERATOR hematuria HEPATIC FUNCTION PANEL STAT 06/02/2019 Acute c ystitis with (80644) (ALB,T.PRO,BILI 7:24 PM GAMING TABLE OPERATOR hematuria T,BU/BC,ALT,AST,ALK PHOS) BASIC METABOLIC PANEL STAT 06/02/2019 Acute cy stitis with (NA, K, CL, CO2, GLUCOSE, 7:24 PM GAMING TABLE OPERATOR hematuria BUN, CREATININE, CA) CBC WITH DIFFERENTIAL Routine 06/02/2019 Acute cy stitis with 7:24 PM GAMING TABLE OPERATOR hematuria URINALYSIS STAT 06/02/2019 Acute cystitis with 7:24 PM GAMING TABLE OPERATOR hematuria EMERGENCY SERVICES Routine 06/02/2019 AGREEMENTS AND 12:01 AM GAMING TABLE OPERATOR AUTHORIZATIONS AUTHORIZATION FOR RELEASE Routine 05/30/2019 OF PHI 12:01 AM GAMING TABLE OPERATOR URINE CULTURE Routine 05/24/2019 Urinary tract i nfection 1:15 PM GAMING TABLE OPERATOR without hematuria, site unspecified POCT URINALYSIS STAT 05/24/2019 Urinary tract infection 12:21 PM GAMING TABLE OPERATOR without hematuria, site unspecified CT ABDOMEN PELVIS WO Routine 05/15/2019 Recurrent UTI CONTRAST 8:18 AM GAMING TABLE OPERATOR Right flank pain MEDICAL RELEASE/CLEARANCE Routine 05/12/2019 FORMS 12:01 AM GAMING TABLE OPERATOR REFERRAL- Routine 05/08/2019 REQUEST/RESPONSE 12:01 AM GAMING TABLE OPERATOR CARDIAC MONITORING Routine 05/02/2019 9:30 AM GAMING TABLE OPERATOR CONSENT/REFUSAL FOR Routine 05/02/2019 DIAGNOSIS AND TREATMENT 9:01 AM GAMING TABLE OPERATOR ASSIGNMENT OF BENEFITS Routine 05/02/2019 9:00 AM GAMING TABLE OPERATOR URINE CULTURE Routine 05/01/2019 Recurrent UTI ( urinary 4:25 PM GAMING TABLE OPERATOR tract infection) Pain pelvic CYTO URINE Routine 05/01/2019 Recurrent UTI ( urinary 4:22 PM GAMING TABLE OPERATOR tract infection) Pain pelvic EKG-12 LEAD Routine 04/29/2019 3:32 PM GAMING TABLE OPERATOR EMERGENCY SERVICES Routine 04/29/2019 AGREEMENTS AND 12:01 AM GAMING TABLE OPERATOR AUTHORIZATIONS ECHO ROUTINE W/DOPPLER Routine 04/25/2019 Palpita tions COLOR 1:58 PM GAMING TABLE OPERATOR from Last 3 Months Results * EKG-12 LEAD (07/20/2019 11:23 AM GAMING TABLE OPERATOR) Specimen Performing Organization Address City/State/Zipcode Ph one Number HST * EXTERNAL PROVIDER RECORDS (07/17/2019 12:01 AM GAMING TABLE OPERATOR) Only the most recent of 3 results within the time period is included. Specimen Performing Organization Address City/State/Zipcode Ph one Number HIM * URINE CULTURE (07/13/2019 4:19 PM GAMING TABLE OPERATOR) Only the most recent of 5 results within the time period is included. URINE CULTURE >100,000 CFU/mL Klebsiella [facility] pneumoniae SERVICES Specimen Urine - URINE, CLEAN CATCH Antibiotic Method Susceptibility Organism Amoxacillin/Clavulanic acid SUSCEPTIBILITY TESTING <=2: Susceptible Klebsiella pneumoniae Ampicillin SUSCEPTIBILITY TESTING >=32: Resistant Klebsiella pneumoniae Ampicillin/Sulbactam SUSCEPTIBILITY TESTING 4: Susceptible Klebsiella pneumoniae Cefazolin SUSCEPTIBILITY TESTING <=4: Susceptible Klebsiella pneumoniae Ceftriaxone SUSCEPTIBILITY TESTING <=1: Susceptible Klebsiella pneumoniae Ertapenem SUSCEPTIBILITY TESTING <=0.5: Susceptible Klebsiella pneumoniae Gentamicin SUSCEPTIBILITY TESTING <=1: Susceptible Klebsiella pneumoniae Levofloxacin SUSCEPTIBILITY TESTING 1: Susceptible Klebsiella pneumoniae Nitrofurantoin SUSCEPTIBILITY TESTING 64: Intermediate Klebsiella pneumoniae Piperacillin/Tazobactam SUSCEPTIBILITY TESTING <=4: Susceptible Klebsiella pneumoniae Trimethoprim/Sulfamethoxazole SUSCEPTIBILITY TESTING >=320: Resistant Klebsiella pneumoniae Comment: Nitrofurantoin is not recommended for use in treating pyelonephritis or systemic disease. Performing Organization Address [facility] Ph one Number [facility] CLIA: [id number], [address] [place] [id number] [facility] * URINALYSIS (07/13/2019 4:19 PM GAMING TABLE OPERATOR) Only the most recent of 4 results within the time period is included. APPEARANCE Hazy (A) Clear [facility] COLOR Yellow Yellow [facility] PH 5.0 4.8 - 8.0 [facility] SP GRAVITY 1.024 1.003 - 1.030 [facility] GLU U QUAL Normal Normal [facility] BLOOD Negative Negative [facility] KETONES Negative Negative [facility] PROTEIN 30 mg/dL (A) Negative [facility] UROBILIN Normal Normal [facility] BILIRUBIN Negative Negative [facility] NITRITE Negative Negative [facility] LEUK MICHAEL Negative Negative [facility] RBC/HPF 1 0 - 3 HPF [facility] WBC/HPF 1 0 - 5 HPF [facility] BACTERIA Negative Negative [facility] MUCOUS Moderate (A) Negative LPF [facility] SQ EPITH 18 (H) <=2 HPF [facility] Specimen Urine - URINE, CLEAN CATCH Performing Organization Address [facility] one Number [facility] CLIA: [id number], [address] [place] [address] [facility] * CBC WITH DIFFERENTIAL (07/05/2019 1:35 PM GAMING TABLE OPERATOR) Only the most recent of 3 results within the time period is included. WBC 5.02 4.30 - 11.10 [facility] 10*3/L [facility] RBC 4.40 3.93 - 5.25 10*6/L [facility] HGB 12.5 11.6 - 15.0 g/dL [facility] RY [facility] HCT 37.5 35.7 - 45.2 % [facility] MCV 85.2 80.6 - 95.5 fL [facility] MCH 28.4 25.9 - 32.8 pg [facility] MCHC 33.3 31.6 - 35.1 g/dL [facility] RDW-SD 42.9 39.0 - 49.9 fL [facility] RDW-CV 13.8 12.0 - 15.5 % [facility] PLT 151 (L) 166 - 358 10*3/L [facility] MPV 10.8 9.5 - 12.9 fL [facility] NRBC/100 WBC 0.0 0.0 - 10.0 /100 WBCs [facility] NRBC x10^3 <0.01 10*3/L [facility] GRAN MAT (NEUT) 64.5 % [facility] Y % [facility] IMM GRAN % 0.40 % [facility] LYMPH % 25.3 % [facility] MONO % 9.2 % [facility] EOS % 0.2 % [facility] BASO % 0.4 % [facility] GRAN MAT 3.24 1.88 - 7.09 10*3/uL [facility] x10^3(ANC) [facility] IMM GRAN x10^3 <0.03 0.00 - 0.06 10*3/uL [facility] LYMPH x10^3 1.27 (L) 1.32 - 3.29 10*3/uL [facility] MONO x10^3 0.46 0.33 - 0.92 10*3/uL [facility] EOS x10^3 <0.03 (L) 0.03 - 0.39 10*3/uL [facility] BASO x10^3 <0.03 0.01 - 0.07 10*3/uL [facility] Specimen Blood - HAND, RIGHT Performing Organization Address City/State/Zipcode Ph one Number [facility] CLIA: [id number], [address] [place], [place] [address] [facility] * BASIC METABOLIC PANEL (NA, K, CL, CO2, GLUCOSE, BUN, CREATININE, CA) (07/05/2019 1:35 PM GAMING TABLE OPERATOR) Only the most recent of 2 results within the time period is included. NA 140 135 - 145 mmol/L [facility] K 3.2 (L) 3.5 - 5.0 mmol/L [facility] CL 104 98 - 108 mmol/L [facility] Y [facility] CO2 TOTAL 26 23 - 31 mmol/L [facility] AGAP 10 2 - 16 [facility] BUN 15 7 - 23 mg/dL [facility] GLUCOSE 92 70 - 110 mg/dL [facility] CREATININE 0.61 0.50 - 1.04 mg/dL [facility] CALCIUM 9.0 8.6 - 10.6 mg/dL [facility] eGFR 99.1 mL/min/1.73m2 [facility] Calculation [facility] ([facility] [place]) eGFR 120.1 mL/min/1.73m2 [facility] Calculation [facility] ([facility] [place]) Specimen Blood - HAND, RIGHT Narrative Performed At Association of Glomerular Filtration Rate (GFR) and S taging of Kidney Disease* [facility] + + +------ + [facility] | GFR (mL/min/1.73 m2) | With Kidney Damage | [facility] Kidney Damage [place] + + -------+ + | >90 | S tage one | Normal + + -------+ + | 60-89 | St age two | Decreased GFR + + -------+ + | 30-59 | St age three | Stage three + + -------+ + | 15-29 | St age four | Stage four + + -------+ + | <15 (or dialysis) | Stage fi ve | Stage five + + -------+ + *Each stage assumes the associated GFR level has been in effect for at least three months. Stages 1 to 5, with or without kidney disease, indicate chronic kidney disease. Notes: Determination of stages one and two (with eGFR >59mL/min/1.73 m2) requires estimation of kidney damage fo r at least three months as defined by structural or functional abnormalities of the kidney, manifested by either: Pathological abnormalities or Markers o f kidney damage (including abnormalities in the composition of the blood or urin e or abnormalities in imaging tests). Performing Organization Address [facility] one Number [facility] CLIA: [id number], [address] [place], [place] [address] [facility] * EMERGENCY SERVICES AGREEMENTS AND AUTHORIZATIONS (07/05/2019 12:01 AM GAMING TABLE OPERATOR) Only the most recent of 3 results within the time period is included. Specimen Performing Organization [facility] one Number HIM * EXTRA TUBE URINE CULTURE (07/02/2019 9:54 AM GAMING TABLE OPERATOR) Only the most recent of 2 results within the time period is included. Specimen Urine - URINE, CLEAN CATCH Performing Organization Address [facility] one Number [facility] CLIA: [id number], [address] [place], [place] [address] [facility] * Chest 1 View (07/02/2019 7:58 AM GAMING TABLE OPERATOR) Specimen Impressions Performed At No acute cardiopulmonary abnormality PACS/VR/DOSE Narrative Performed At EXAM: XR CHEST 1 VW PACS/VR/DOSE HISTORY: cough COMPARISON: 03/27/2019. FINDINGS: The lungs are clear. No pleural effusio n or pneumothorax is seen. No focal consolidation is seen. The heart is normal in size. No acute osseous abnormality is identif ied. Procedure Note [facility], Radiant Results Inft User - 07/02/2019 9:04 AM GAMING TABLE OPERATOR EXAM: XR CHEST 1 VW HISTORY: cough COMPARISON: 03/27/2019. FINDINGS: The lungs are clear. No pleural effusion or pneumothorax is seen. No focal consolidation is seen. The heart is normal in size. No acute osseous abnormality is identified. IMPRESSION No acute cardiopulmonary abnormality Performing Organization Address [facility] one Number PACS/VR/DOSE * EXTRA TUBE LT. BLUE (07/02/2019 7:40 AM GAMING TABLE OPERATOR) Only the most recent of 2 results within the time period is included. Specimen Blood Performing Organization Address City/State/Zipcode Ph one Number [facility] CLIA: [id number], [address] [place], [place] [address] [facility] * COMP. METABOLIC PANEL (48350) (07/02/2019 7:40 AM GAMING TABLE OPERATOR) NA 140 135 - 145 mmol/L [facility] K 3.2 (L) 3.5 - 5.0 mmol/L [facility] CL 101 98 - 108 mmol/L [facility] CO2 TOTAL 28 23 - 31 mmol/L [facility] AGAP 11 2 - 16 [facility] BUN 16 7 - 23 mg/dL [facility] GLUCOSE 122 (H) 70 - 110 mg/dL [facility] CREATININE 0.59 0.50 - 1.04 mg/dL [facility] TOTAL BILI 0.5 0.1 - 1.1 mg/dL [facility] CALCIUM 8.7 8.6 - 10.6 mg/dL [facility] T PROTEIN 6.7 6.3 - 8.2 g/dL [facility] ALBUMIN 4.3 3.5 - 5.0 g/dL [facility] ALK PHOS 74 34 - 122 U/L [facility] ALTv 31 5 - 35 U/L [facility] AST(SGOT) 30 13 - 40 U/L [facility] eGFR 102.9 mL/min/1.73m2 [facility] Calculation [facility] ([facility]) eGFR 124.8 mL/min/1.73m2 [facility] Specimen Blood - VENOUS Narrative Performed At Association of Glomerular Filtration Rate (GFR) and S taging of Kidney Disease* [facility] + + +------ + SERVICES-CLEAR QUAN | GFR (mL/min/1.73 m2) | With Kidney Damage | [facility] + + -------+ + | >90 | S tage one | Normal + + -------+ + | 60-89 | St age two | Decreased GFR + + -------+ + | 30-59 | St age three | Stage three + + -------+ + | 15-29 | St age four | Stage four + + -------+ + | <15 (or dialysis) | Stage fi ve | Stage five + + -------+ + *Each stage assumes the associated GFR level has been in effect for at least three months. Stages 1 to 5, with or without kidney disease, indicate chronic kidney disease. Notes: Determination of stages one and two (with eGFR >59mL/min/1.73 m2) requires estimation of kidney damage fo r at least three months as defined by structural or functional abnormalities of the kidney, manifested by either: Pathological abnormalities or Markers o f kidney damage (including abnormalities in the composition of the blood or urin e or abnormalities in imaging tests). Performing Organization Address City/State/[facility] Ph one Number [facility] CLIA: [id number], [address] [place], [place] [address] [facility] * CONSENT/REFUSAL FOR DIAGNOSIS AND TREATMENT (07/02/2019 7:08 AM GAMING TABLE OPERATOR) Only the most recent of 2 results within the time period is included. Specimen Performing Organization Address City/[facility] Ph one Number [facility] * HOSPITAL ADMISSION (07/02/2019 12:01 AM GAMING TABLE OPERATOR) Specimen Performing Organization Address [facility] Ph one Number HIM * POCT URINALYSIS W SPECIFIC GRAVITY (06/16/2019 11:05 AM GAMING TABLE OPERATOR) Only the most recent of 2 results within the time period is included. POCT U SP GRAV 1.015 1.005 - 1.025 mg/dl POCT PH U 5.0 5 - 8 mg/dl POCT U LEUK EST neg Negative - Negative POCT U NIT positive (A) Negative - Negative POCT U PROT neg Negative - Negative POCT U GLU neg Negative - Negative POCT U KETONE neg Negative - Negative POCT U UROBILI neg 0.2 - 1 mg/dl POCT U BILI neg Negative - Negative POCT U BLD neg Negative - Negative POCT U COLOR yellow POCT U APPEAR hazy Specimen Urine - URINE, CLEAN CATCH Narrative Performed At accurate development and interpretation of all internal controls * Hepatic Function Panel (ALB, T.PRO, BILI T, BU/BC, ALT, AST, ALK PHOS) (06/02/2019 7:24 PM GAMING TABLE OPERATOR) TOTAL BILI 0.3 0.1 - 1.1 mg/dL [facility] BILI UNCON 0.2 0.1 - 1.1 mg/dL [facility] BILI CONJ 0.0 0.0 - 0.3 mg/dL [facility] T PROTEIN 7.4 6.3 - 8.2 g/dL [facility] ALBUMIN 4.7 3.5 - 5.0 g/dL [facility] ALK PHOS 69 34 - 122 U/L [facility] ALTv 34 5 - 35 U/L [facility] AST(SGOT) 30 13 - 40 U/L [facility] Specimen Blood - ARM, RIGHT Performing Organization Address City/State/Zipcode Ph one Number [facility] CLIA: [id number], [address] [place] [id number] [address] [facility] * AUTHORIZATION FOR RELEASE OF PHI (05/30/2019 12:01 AM GAMING TABLE OPERATOR) Specimen Performing Organization Address City/[facility] Ph one Number HIM * CT ABDOMEN PELVIS WO CONTRAST (05/15/2019 8:18 AM GAMING TABLE OPERATOR) Specimen Impressions Performed At No nephrolithiasis or other abnormalities to explain patient's right flank PACS/VR/DOSE pain. Fatty infiltration of the liver. Mild splenomegaly, stable. Stable pulmonary nodules as outlined ab ove (stable since 02/25/2018). Consider repeat CT in February 2020 to ensure stability (per Fleischner Society recommendations). Preliminary Report Dictated by Resident : Connor Solo I, Jaswinder Dubon MD., have reviewe d this study and agree with the above report. Narrative Performed At EXAM: CT ABDOMEN AND PELVIS WITHOUT CONTRAST PACS/VR /DOSE HISTORY: right flank pain Flank pain, s tone disease suspected COMPARISON: 10/18/2018 CT abdomen pelvis TECHNIQUE AND FINDINGS: Contiguous axia l imaging from the level of the lung bases through the pubic symphysis was p erformed without contrast. Coronal and sagittal reconstructions were obtai hcelle. Auto mA and/or iterative reconstruction were used to reduce radi ation dose. FINDINGS: LOWER THORAX: Stable 5 mm right middle lobe and 10 mm left lower lobe noncalcified pulmonary nodules. The pradeep g bases are otherwise clear. No cardiomegaly. Mitral annular calcificat ions are noted. LIVER: The liver is diffusely hypoatten uating suggesting fatty infiltration. Normal size and contour. No focal hepatic lesion. GALLBLADDER AND BILIARY TREE: Prior cho lecystectomy. No biliary ductal dilation. SPLEEN: Mild splenomegaly (14.8 cm). PANCREAS: No ductal dilation or masses. ADRENAL GLANDS: No adrenal nodules. KIDNEYS: No hydronephrosis, stones, or masses. Subcentimeter left lower pole exophytic cortical hypodensity, to o small to characterize, likely cyst. PERITONEUM AND RETROPERITONEUM: No free air or fluid. LYMPH NODES: No lymphadenopathy. GI TRACT: No dilation or wall thickenin g. Prior appendectomy. PELVIS/BLADDER: The urinary bladder is unremarkable. Prior hysterectomy. VESSELS: Mild scattered atherosclerotic calcifications. BONES AND SOFT TISSUES: No suspicious b anuj lesions. Early grade 1 degenerative anterolisthesis of L4 on L 5 due to facet arthropathy. Procedure Note [facility], Radiant Results Inft User - 05/15/2019 9:04 AM GAMING TABLE OPERATOR EXAM: CT ABDOMEN AND PELVIS WITHOUT CONTRAST HISTORY: right flank pain Flank pain, stone disease suspected COMPARISON: 10/18/2018 CT abdomen pelvis TECHNIQUE AND FINDINGS: Contiguous axial imaging from the level of the lung bases through the pubic symphysis was performed without contrast. Coronal and sagittal reconstructions were obtained. Auto mA and/or iterative reconstruction were used to reduce radiation dose. FINDINGS: LOWER THORAX: Stable 5 mm right middle lobe and 10 mm left lower lobe noncalcified pulmonary nodules. The lung bases are otherwise clear. No cardiomegaly. Mitral annular calcifications are noted. LIVER: The liver is diffusely hypoattenuating suggesting fatty infiltration. Normal size and contour. No focal hepatic lesion. GALLBLADDER AND BILIARY TREE: Prior cholecystectomy. No biliary ductal dilation. SPLEEN: Mild splenomegaly (14.8 cm). PANCREAS: No ductal dilation or masses. ADRENAL GLANDS: No adrenal nodules. KIDNEYS: No hydronephrosis, stones, or masses. Subcentimeter left lower pole exophytic cortical hypodensity, too small to characterize, likely cyst. PERITONEUM AND RETROPERITONEUM: No free air or fluid. LYMPH NODES: No lymphadenopathy. GI TRACT: No dilation or wall thickening. Prior appendectomy. PELVIS/BLADDER: The urinary bladder is unremarkable. Prior hysterectomy. VESSELS: Mild scattered atherosclerotic calcifications. BONES AND SOFT TISSUES: No suspicious bony lesions. Early grade 1 degenerative anterolisthesis of L4 on L5 due to facet arthropathy. IMPRESSION No nephrolithiasis or other abnormalities to explain patient's right flank pain. Fatty infiltration of the liver. Mild splenomegaly, stable. Stable pulmonary nodules as outlined above (stable since 02/25/2018). Consider repeat CT in February 2020 to ensure stability (per Fleischner Society recommendations). Preliminary Report Dictated by Resident: Connor Solo I, Jaswinder Dubon MD., have reviewed this study and agree with the above report. Performing Organization Address City/State/Zipcode Ph one Number PACS/VR/DOSE * MEDICAL RELEASE/CLEARANCE FORMS (05/12/2019 12:01 AM GAMING TABLE OPERATOR) Specimen Performing Organization Address City/State/Zipcode Ph one Number HIM * REFERRAL- REQUEST/RESPONSE (05/08/2019 12:01 AM GAMING TABLE OPERATOR) Specimen Performing Organization Address City/State/Zipcode Ph one Number [facility] * Cardiac Monitoring (05/02/2019 9:30 AM GAMING TABLE OPERATOR) Specimen Performing Organization Address City/State/Zipcode Ph one Number [facility] * ASSIGNMENT OF BENEFITS (05/02/2019 9:00 AM GAMING TABLE OPERATOR) Specimen Performing Organization Address City/State/Zipcode Ph one Number HIM * CYTO URINE (05/01/2019 4:22 PM GAMING TABLE OPERATOR) Case Report Non-Gynecologic Cytology [facility] Case: [id number] Authorizing Provider: Eleno Mcnamara MD Collected: 05/01/2019 1622 Ordering Location: [facility] Received: 05/01/2019 1620 [facility] Pathologist: Ellen Baer MD Specimen: URINE, CLEAN CATCH Final Diagnosis URINE, VOIDED: [facility] Electronical ly - NEGATIVE FOR MALIGNANCY (SEE SERVICES signed by Keyur, COMMENT) Ellen Louie MD I have personally reviewed all on 05/03/2019 at specimens/slides and agree 1:04 PM with all statements made by residents, fellows or pathologist assistants whose name(s) may appear on this report. Final Diagnosis Few benign urothelial cells, [facility] Comment admixed with squamous SERVICES epithelial cells are seen. No malignant cells identified. Clinical bladder pain [facility] Information SERVICES Gross A1. URINE, VOIDED [facility] Description Received is 30 cc's of urine SERVICES in 15 cc's PreservCyt preservative Prepared 2 slides (Papanicolaou stained: 1 cytospin preparation and 1 Thinprep preparation) Embedded Images [facility] SERVICES Specimen Urine - URINE, CLEAN CATCH Performing Organization Address City/State/Zipcode Ph one Number [facility] SERVICES CLIA: [id number], [address] [place] [address] * EKG-12 LEAD (04/29/2019 3:32 PM GAMING TABLE OPERATOR) Specimen Performing Organization Address City/[facility] Ph one Number [facility] * ECHO ROUTINE W/DOPPLER COLOR (04/25/2019 1:58 PM GAMING TABLE OPERATOR) Specimen Performing Organization Address City/[facility] Ph one Number ECHO from Last 3 Months Insurance Type Payer Benefit Subscriber ID Effective Phone Address Plan / Dates Group [facility] [id number] 2019-[address] [facility] [place] [facility] [id number] [place] [address]
--- OUTSIDE RECORDS SUMMARY | 2019-11-09 10:05 | XMS REPORT | Clinical Summary ---
Author Author [facility] - Health Organization [facility] - Health Address Unknown Phone Unavailable Care Team Providers Care Stores Laborer Name Role Phone Fabien Fernandes MD Unavailable Marvin Ocononr MD PCP Cady, Team 25 Unavailable Allergies Comments Active Allergy Reactions Severity Noted Date Azithromycin Itching 01/07/2019 Ciprofloxacin Rash 01/27/2018 Clindamycin Other - See Medium 10/05/2016 comments, Itching Clonazepam Itching, Medium 11/23/2017 Rash, Swelling All steroids-muscle weakness Corticosteroids Other - See 01/20/2016 (Glucocorticoids) comments Iodine Rash 10/05/2016 Lincomycin Rash Medium 09/15/2017 Nitrofurantoin Rash 01/27/2018 Other Herrick-3s Anaphylaxis 01/27/2018 States it would be fatal [...] bedtime. 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 01/12/2019 Overview: [facility] [id number] Obesity (BMI 30-39.9) 12/16/2018 Recurrent UTI 05/17/2018 [...] of lumbar region without myelopathy or radiculo joahnna 01/12/2019 01/16/2019 Overview: Added automatically from request for josé luis silvestre [id number] Encounters Care Team Description Date Type Specialty Boom Santiago MD Palpitations (Primary Dx) 07/20/2019 Office Visit Cardiology Doctor Unassigned, [place] 07/17/2019 Orders Only Marvin Oconnor MD Results 07/14/2019 Telephone Internal [place] MD Pcp-Lab Dysuria 07/13/2019 Drive[address] Sealer Phlebotomy Visit Marvin Oconnor MD Dysuria (Primary [...] Fernandes MD Pcp-Lab Urinary frequency; Dysuria 06/30/2019 Drive[address] Sealer Phlebotomy Visit Unknown, Attending Yudy Fernandes MD Castillo, Jorge, MD Urinary frequency (Primary Dx); Dysuria; Convulsions, unspecified convulsion type 06/30/2019 Office Visit Internal Medicine Goldie Culver RN 06/29/2019 Abstract [facility] Preventive Medicine Doctor Unassigned, [place] 06/22/2019 Orders Only Eleno Mcnamara MD Notification [...] infection; Cough; Seizure 05/24/2019 Urgent Care Family [place] MD Assessment; FLU; URINARY TRACT INFECTION ; Bladder Pain 05/24/2019 Telephone Internal Medicine Mauricio Yip MD Results 05/23/2019 Telephone Cardiology Leticia Handy MD Medical Records ([facility] ) 05/17/2019 Telephone Internal Medicine Ciara Merrill FNP 05/15/2019 Hospital Radiology Encounter Sukh Harris MD Refill Request 05/15/2019 Telephone Pain Medicine Ciara Merrill FNP Xray Results 05/15/2019 Telephone Urology Mauricio Yip MD Surgery Clearance 05/12/2019 Telephone Cardiology Doctor Unassigned, [place] 05/12/2019 Orders Only Doctor Unassigned, [place] 05/08/2019 Orders Only Ciara Merrill FNP Recurrent UTI (Primary Dx); Right flank pain 05/04/2019 Office Visit Urology Eleno Mcnamara MD Rx Concern/Question (Medication) 05/03/2019 Telephone Obstetrics & Gyneco Mauricio Dobson MD Monitor, [facility] Holter 05/02/2019 Hospital Heart Station Encounter Doctor Unassigned, [place] 05/02/2019 Orders Only Eleno Mcnamara MD Recurrent UTI (urinary tract infection) (Primary Dx); Pain pelvic 05/01/2019 Office Visit Obstetrics & Gyneco Belinda Cook, HISTOLOGIST Psychogenic nonepileptic seizure (Primar y Dx) 04/29/2019 Emergency Emergency Medicine Gerber Ni MD Nurse, s [facility] Chronic interstitial cystitis (Primary D x) 04/26/2019 Nurse Visit Obstetrics & Gyneco Mauricio Dobson MD 1, [facility] Echo Room 1, [facility] Grapple Crew Leader Palpitations 04/25/2019 Hospital Echocardiograph Encounter from Last [...] Comments Vital Sign 139/81 07/21/2019 1:04 PM METAL ENGRAVER Blood Pressure 94 07/21/2019 1:04 PM METAL ENGRAVER Pulse 37 C (98.6 F) 07/13/2019 3:05 PM METAL ENGRAVER Temperature 18 07/21/2019 1:04 PM METAL ENGRAVER Respiratory Rate 94% 07/20/2019 11:15 AM METAL ENGRAVER Oxygen Saturation - - Inhaled Oxygen Concentration 81.6 kg (180 lb) 07/21/2019 1:04 PM METAL ENGRAVER Weight 154.9 cm (5' 1") 07/21/2019 1:04 PM METAL ENGRAVER Height 34.01 07/21/2019 1:04 PM METAL ENGRAVER Body Mass Index Plan of Treatment Care Team Description Date Type Specialty Test, Vtc Pulmonary Function 07/28/2019 Drive[address] Sealer Pulmonary Function Visit Technologist Marvin Oconnor MD [address] [place] [address] [id number] 08/21/2019 Office Visit Internal Medicine Zoila Rodas AGNP [address] [place] [address] [id number] 09/06/2019 Office Visit Nephrology Kashif Cee MD [address] [place] [address]. [place] [address] 09/14/2019 Office Visit Neurology Eleno Mcnamara MD [address] [place] [address] [phone] 09/15/2019 Office Visit Obstetrics & Gyneco rowenay Sukh Harris MD [address] [facility] [id number] [place], [place] [id number] 11/23/2019 Office Visit Pain Medicine Dieter Zhou MD [address] [facility] [id number] [place], [place] [phone] 01/03/2020 Office Visit Pulmonary Disease Health Maintenance [...] nosis EKG-12 LEAD Routine 07/20/2019 11:23 AM METAL ENGRAVER EXTERNAL PROVIDER RECORDS Routine 07/17/2019 12:01 AM METAL ENGRAVER URINE CULTURE Routine 07/13/2019 Dysuria 4:19 PM METAL ENGRAVER URINALYSIS Routine 07/13/2019 Dysuria 4:19 PM METAL ENGRAVER EXTERNAL PROVIDER RECORDS Routine 07/11/2019 12:01 AM METAL ENGRAVER CBC WITH DIFFERENTIAL STAT 07/05/2019 Rash 1:35 PM METAL ENGRAVER CBC WITH DIFFERENTIAL STAT 07/05/2019 Rash 1:35 PM METAL ENGRAVER BASIC METABOLIC PANEL STAT 07/05/2019 Rash (NA, K, CL, CO2, GLUCOSE, 1:35 PM METAL ENGRAVER BUN, CREATININE, CA) EMERGENCY SERVICES Routine 07/05/2019 AGREEMENTS AND 12:01 AM METAL ENGRAVER AUTHORIZATIONS EXTRA TUBE URINE CULTURE Routine 07/02/2019 9:54 AM METAL ENGRAVER URINALYSIS STAT 07/02/2019 Cough 9:54 AM METAL ENGRAVER XR CHEST 1 VW STAT 07/02/2019 Cough 7:58 AM METAL ENGRAVER EXTRA TUBE LT. BLUE STAT 07/02/2019 7:40 AM METAL ENGRAVER CBC WITH DIFFERENTIAL STAT 07/02/2019 Cough 7:40 AM METAL ENGRAVER COMP. METABOLIC PANEL STAT 07/02/2019 Cough (71877) 7:40 AM METAL ENGRAVER CBC WITH DIFFERENTIAL Routine 07/02/2019 Cough 7:40 AM METAL ENGRAVER CONSENT/REFUSAL FOR Routine 07/02/2019 DIAGNOSIS AND TREATMENT 7:08 AM METAL ENGRAVER HOSPITAL ADMISSION Routine 07/02/2019 12:01 AM METAL ENGRAVER URINALYSIS JAMES 06/30/2019 Urinary frequen cy 2:37 PM METAL ENGRAVER Dysuria URINE CULTURE JAMES 06/30/2019 Urinary frequen cy 2:37 PM METAL ENGRAVER Dysuria EXTERNAL PROVIDER RECORDS Routine 06/22/2019 12:01 AM METAL ENGRAVER URINE CULTURE Routine 06/16/2019 Recurrent UTI ( urinary 11:12 AM METAL ENGRAVER tract infection) POCT URINALYSIS Routine 06/16/2019 Recurrent UTI (urinary 11:05 AM METAL ENGRAVER tract infection) EXTRA TUBE URINE CULTURE STAT 06/02/2019 7:24 PM METAL ENGRAVER EXTRA TUBE LT. BLUE STAT 06/02/2019 7:24 PM METAL ENGRAVER CBC WITH DIFFERENTIAL STAT 06/02/2019 Acute cy stitis with 7:24 PM METAL ENGRAVER hematuria HEPATIC FUNCTION PANEL STAT 06/02/2019 Acute c ystitis with (61248) (ALB,T.PRO,BILI 7:24 PM METAL ENGRAVER hematuria T,BU/BC,ALT,AST,ALK PHOS) BASIC METABOLIC PANEL STAT 06/02/2019 Acute cy stitis with (NA, K, CL, CO2, GLUCOSE, 7:24 PM METAL ENGRAVER hematuria BUN, CREATININE, CA) CBC WITH DIFFERENTIAL Routine 06/02/2019 Acute cy stitis with 7:24 PM METAL ENGRAVER hematuria URINALYSIS STAT 06/02/2019 Acute cystitis with 7:24 PM METAL ENGRAVER hematuria EMERGENCY SERVICES Routine 06/02/2019 AGREEMENTS AND 12:01 AM METAL ENGRAVER AUTHORIZATIONS AUTHORIZATION FOR RELEASE Routine 05/30/2019 OF PHI 12:01 AM METAL ENGRAVER URINE CULTURE Routine 05/24/2019 Urinary tract i nfection 1:15 PM METAL ENGRAVER without hematuria, site unspecified POCT URINALYSIS STAT 05/24/2019 Urinary tract infection 12:21 PM METAL ENGRAVER without hematuria, site unspecified CT ABDOMEN PELVIS WO Routine 05/15/2019 Recurrent UTI CONTRAST 8:18 AM METAL ENGRAVER Right flank pain MEDICAL RELEASE/CLEARANCE Routine 05/12/2019 FORMS 12:01 AM METAL ENGRAVER REFERRAL- Routine 05/08/2019 REQUEST/RESPONSE 12:01 AM METAL ENGRAVER CARDIAC MONITORING Routine 05/02/2019 9:30 AM METAL ENGRAVER CONSENT/REFUSAL FOR Routine 05/02/2019 DIAGNOSIS AND TREATMENT 9:01 AM METAL ENGRAVER ASSIGNMENT OF BENEFITS Routine 05/02/2019 9:00 AM METAL ENGRAVER URINE CULTURE Routine 05/01/2019 Recurrent UTI ( urinary 4:25 PM METAL ENGRAVER tract infection) Pain pelvic CYTO URINE Routine 05/01/2019 Recurrent UTI ( urinary 4:22 PM METAL ENGRAVER tract infection) Pain pelvic EKG-12 LEAD Routine 04/29/2019 3:32 PM METAL ENGRAVER EMERGENCY SERVICES Routine 04/29/2019 AGREEMENTS AND 12:01 AM METAL ENGRAVER AUTHORIZATIONS ECHO ROUTINE W/DOPPLER Routine 04/25/2019 Palpita tions COLOR 1:58 PM METAL ENGRAVER from Last 3 Months Results * EKG-12 LEAD (07/20/2019 11:23 AM METAL ENGRAVER) Specimen Performing Organization Address City/State/Zipcode Ph one Number [facility]ST * EXTERNAL PROVIDER RECORDS (07/17/2019 12:01 AM METAL ENGRAVER) Only the most recent of 3 results within the time period is included. Specimen Performing Organization Address City/State/Zipcode Ph one Number HIM * URINE CULTURE (07/13/2019 4:19 PM METAL ENGRAVER) Only the most recent of 5 results within the time period is included. URINE CULTURE >100,000 CFU/mL Klebsiella [facility] pneumoniae SERVICES Specimen Urine - [...] pyelonephritis or systemic disease. Performing Organization Address [facility] [place] [place] Ph one Number [facility] CLIA: [id number], [address] [place] [id number] [facility] * URINALYSIS (07/13/2019 4:19 PM METAL ENGRAVER) Only the most recent of 4 results within the time period is included. APPEARANCE Hazy (A) Clear [facility] COLOR Yellow Yellow [facility] PH 5.0 4.8 - 8.0 [facility] SP GRAVITY 1.024 1.003 - 1.030 [facility] GLU U QUAL Normal Normal [facility] BLOOD Negative Negative [facility] KETONES Negative Negative [facility] PROTEIN 30 mg/dL (A) Negative [facility] UROBILIN Normal Normal [facility] BILIRUBIN Negative Negative [facility] NITRITE Negative Negative [facility] LEUK MICHAEL Negative Negative [facility] RBC/HPF 1 0 - 3 HPF [facility] WBC/HPF 1 0 - 5 HPF [facility] BACTERIA Negative Negative [facility] MUCOUS Moderate (A) Negative LPF [facility] SQ EPITH 18 (H) <=2 HPF [facility] Specimen Urine - URINE, CLEAN CATCH Performing Organization Address [facility] one Number [facility] CLIA: [id number], [address] [place] [phone] [facility] * CBC WITH DIFFERENTIAL (07/05/2019 1:35 PM METAL ENGRAVER) Only the most recent of 3 results within the time period is included. WBC 5.02 4.30 - 11.10 [facility] 10*3/L [facility] RBC 4.40 3.93 - 5.25 10*6/L [facility] HGB 12.5 11.6 - 15.0 g/dL [facility] RY [facility] HCT 37.5 35.7 - 45.2 % [facility] MCV 85.2 80.6 - 95.5 fL [facility] MCH 28.4 25.9 - 32.8 pg [facility] MCHC 33.3 31.6 - 35.1 g/dL [facility] RDW-SD 42.9 39.0 - 49.9 fL [facility] RDW-CV 13.8 12.0 - 15.5 % [facility] PLT 151 (L) 166 - 358 10*3/L [facility] MPV 10.8 9.5 - 12.9 fL [facility] NRBC/100 WBC 0.0 0.0 - 10.0 /100 WBCs [facility] NRBC x10^3 <0.01 10*3/L [facility] GRAN MAT (NEUT) 64.5 % [facility] Y % [facility] IMM GRAN % 0.40 % [facility] LYMPH % 25.3 % [facility] MONO % 9.2 % [facility] EOS % 0.2 % [facility] BASO % 0.4 % [facility] GRAN MAT 3.24 1.88 - 7.09 10*3/uL [facility] x10^3(ANC) [facility] IMM GRAN x10^3 <0.03 0.00 - 0.06 10*3/uL [facility] LYMPH x10^3 1.27 (L) 1.32 - 3.29 10*3/uL [facility] MONO x10^3 0.46 0.33 - 0.92 10*3/uL [facility] EOS x10^3 <0.03 (L) 0.03 - 0.39 10*3/uL [facility] BASO x10^3 <0.03 0.01 - 0.07 10*3/uL [facility] Specimen Blood - HAND, RIGHT Performing Organization Address City/State/Zipcode Ph one Number [facility] CLIA: [id number], [address] [place], [place] [address] [facility] * BASIC METABOLIC PANEL (NA, K, CL, CO2, GLUCOSE, BUN, CREATININE, CA) (07/05/2019 1:35 PM METAL ENGRAVER) Only the most recent of 2 results within the time period is included. NA 140 135 - 145 mmol/L [facility] K 3.2 (L) 3.5 - 5.0 mmol/L [facility] CL 104 98 - 108 mmol/L [facility] Y [facility] CO2 TOTAL 26 23 - 31 mmol/L [facility] AGAP 10 2 - 16 [facility] BUN 15 7 - 23 mg/dL [facility] GLUCOSE 92 70 - 110 mg/dL [facility] CREATININE 0.61 0.50 - 1.04 mg/dL [facility] CALCIUM 9.0 8.6 - 10.6 mg/dL [facility] RY [facility] eGFR 99.1 mL/min/1.73m2 [facility] Calculation [facility] (Non-[facility] Maltese) eGFR 120.1 mL/min/1.73m2 [facility] Calculation [facility] ([facility] Maltese) Specimen Blood - HAND, RIGHT Narrative Performed At Association of Glomerular Filtration Rate (GFR) and S taging of Kidney Disease* [facility] + + +------ + [facility] | GFR (mL/min/1.73 m2) | With Kidney Damage | W [facility] Kidney Damage [place] + + -------+ + | >90 | [...] abnormalities in imaging tests). Performing Organization Address [facility] one Number [facility] CLIA: [id number], [address] [place], [place] [address] [facility] * EMERGENCY SERVICES AGREEMENTS AND AUTHORIZATIONS (07/05/2019 12:01 AM METAL ENGRAVER) Only the most recent of 3 results within the time period is included. Specimen Performing Organization [facility] one Number HIM * EXTRA TUBE URINE CULTURE (07/02/2019 9:54 AM METAL ENGRAVER) Only the most recent of 2 results within the time period is included. Specimen Urine - URINE, CLEAN CATCH Performing Organization Address [facility] one Number [facility] CLIA: [id number], [address] [place], [place] [address] [facility] * Chest 1 View (07/02/2019 7:58 AM METAL ENGRAVER) Specimen Impressions Performed At No acute cardiopulmonary abnormality PACS/VR/DOSE Narrative Performed At EXAM: XR CHEST 1 VW PACS/VR/DOSE HISTORY: cough COMPARISON: 03/27/2019. FINDINGS: The lungs are clear. No pleural effusio n or pneumothorax is seen. No focal consolidation is seen. The heart is normal in size. No acute osseous abnormality is identif ied. Procedure Note [facility], Radiant Results Inft User - 07/02/2019 9:04 AM METAL ENGRAVER EXAM: XR CHEST 1 VW HISTORY: cough COMPARISON: 03/27/2019. FINDINGS: The lungs are clear. No pleural effusion or pneumothorax is seen. No focal consolidation is seen. The heart is normal in size. No acute osseous abnormality is identified. IMPRESSION No acute cardiopulmonary abnormality Performing Organization Address [facility] one Number PACS/VR/DOSE * EXTRA TUBE LT. BLUE (07/02/2019 7:40 AM METAL ENGRAVER) Only the most recent of 2 results within the time period is included. Specimen Blood Performing Organization Address City/State/Zipcode Ph one Number [facility] CLIA: [id number], [address] [place], [place] [address] [facility] * COMP. METABOLIC PANEL ([id number]) (07/02/2019 7:40 AM METAL ENGRAVER) NA 140 135 - 145 mmol/L [facility] K 3.2 (L) 3.5 - 5.0 mmol/L [facility] CL 101 98 - 108 mmol/L [facility] CO2 TOTAL 28 23 - 31 mmol/L [facility] AGAP 11 2 - 16 [facility] BUN 16 7 - 23 mg/dL [facility] GLUCOSE 122 (H) 70 - 110 mg/dL [facility] CREATININE 0.59 0.50 - 1.04 mg/dL [facility] TOTAL BILI 0.5 0.1 - 1.1 mg/dL [facility] CALCIUM 8.7 8.6 - 10.6 mg/dL [facility] T PROTEIN 6.7 6.3 - 8.2 g/dL [facility] ALBUMIN 4.3 3.5 - 5.0 g/dL [facility] ALK PHOS 74 34 - 122 U/L [facility] ALTv 31 5 - 35 U/L [facility] AST(SGOT) 30 13 - 40 U/L [facility] eGFR 102.9 mL/min/1.73m2 [facility] Calculation [place] (Non-[facility] Maltese) eGFR 124.8 mL/min/1.73m2 [facility] Calculation [facility] ([facility] Maltese) Specimen Blood - VENOUS Narrative Performed At Association of Glomerular Filtration Rate (GFR) and S taging of Kidney Disease* [facility] + + +------ + SERVICES-CLEAR QUAN [...] abnormalities in imaging tests). Performing Organization Address City/State/[facility] Ph one Number [facility] CLIA: [id number], [address] [place], [place] [address] [facility] * CONSENT/REFUSAL FOR DIAGNOSIS AND TREATMENT (07/02/2019 7:08 AM METAL ENGRAVER) Only the most recent of 2 results within the time period is included. Specimen Performing Organization Address City/[facility] Ph one Number HIM * HOSPITAL ADMISSION (07/02/2019 12:01 AM METAL ENGRAVER) Specimen Performing Organization Address [facility] [place] [place] Ph one Number HIM * POCT URINALYSIS W SPECIFIC GRAVITY (06/16/2019 11:05 AM METAL ENGRAVER) Only the most recent of 2 results [...] ALT, AST, ALK PHOS) (06/02/2019 7:24 PM METAL ENGRAVER) TOTAL BILI 0.3 0.1 - 1.1 mg/dL [facility] Y [facility] BILI UNCON 0.2 0.1 - 1.1 mg/dL [facility] BILI CONJ 0.0 0.0 - 0.3 mg/dL [facility]OR[facility] Y [facility] T PROTEIN 7.4 6.3 - 8.2 g/dL [facility] ALBUMIN 4.7 3.5 - 5.0 g/dL [facility] ALK PHOS 69 34 - 122 U/L [facility] ALTv 34 5 - 35 U/L [facility] AST(SGOT) 30 13 - 40 U/L [facility] Specimen Blood - ARM, RIGHT Performing Organization Address City/State/Zipcode Ph one Number [facility] CLIA: [id number], [address] [place] [address] 98 [facility] * AUTHORIZATION FOR RELEASE OF PHI (05/30/2019 12:01 AM METAL ENGRAVER) Specimen Performing Organization Address City/[facility] [place] [place] Ph one Number HIM * CT ABDOMEN PELVIS WO CONTRAST (05/15/2019 8:18 AM METAL ENGRAVER) Specimen Impressions Performed At No nephrolithiasis or [...] contrast. Coronal and sagittal reconstructions were obtai chelle. Auto mA and/or iterative reconstruction were used [...] Results Inft User - 05/15/2019 9:04 AM METAL ENGRAVER EXAM: CT ABDOMEN AND PELVIS WITHOUT CONTRAST [...] * MEDICAL RELEASE/CLEARANCE FORMS (05/12/2019 12:01 AM METAL ENGRAVER) Specimen Performing Organization Address City/State/Zipcode Ph one Number HIM * REFERRAL- REQUEST/RESPONSE (05/08/2019 12:01 AM METAL ENGRAVER) Specimen Performing Organization Address City/State/Zipcode Ph one Number HIM * Cardiac Monitoring (05/02/2019 9:30 AM METAL ENGRAVER) Specimen Performing Organization Address City/State/Zipcode Ph one Number [facility] * ASSIGNMENT OF BENEFITS (05/02/2019 9:00 AM METAL ENGRAVER) Specimen Performing Organization Address City/State/Zipcode Ph one Number HIM * CYTO URINE (05/01/2019 4:22 PM METAL ENGRAVER) Case Report Non-Gynecologic Cytology [facility] Case: [id number] Authorizing Provider: Eleno Mcnamara MD Collected: 05/01/2019 1622 Ordering Location: [facility] Received: 05/01/[address] [facility] Pathologist: Ellen Baer MD Specimen: URINE, CLEAN CATCH Final Diagnosis URINE, VOIDED: [facility] Electronical ly - NEGATIVE FOR MALIGNANCY (SEE SERVICES signed by Keyur, COMMENT) Ellen Louie MD I have personally reviewed all on 05/03/2019 at specimens/slides and agree 1:04 PM with all statements made by residents, fellows or pathologist assistants whose name(s) may appear on this report. Final Diagnosis Few benign urothelial cells, [facility] Comment admixed with squamous SERVICES epithelial cells are seen. No malignant cells identified. Clinical bladder pain [facility] Information SERVICES Gross A1. URINE, VOIDED [facility] Description Received is 30 cc's of urine SERVICES in 15 cc's PreservCyt preservative Prepared 2 slides (Papanicolaou stained: 1 cytospin preparation and 1 Thinprep preparation) Embedded Images [facility] Specimen Urine - URINE, CLEAN CATCH Performing Organization Address City/State/Zipcode Ph one Number [facility] CLIA: [id number], [address] [place], [place] [address] * EKG-12 LEAD (04/29/2019 3:32 PM METAL ENGRAVER) Specimen Performing Organization Address City/[facility] Ph one Number HST * ECHO ROUTINE W/DOPPLER COLOR (04/25/2019 1:58 PM METAL ENGRAVER) Specimen Performing Organization Address City/[facility] Ph one Number ECHO from Last 3 Months Insurance Type Payer Benefit Subscriber ID Effective Phone Address Plan / Dates Group HMO [facility] [id number] 2019-P [address] [facility] ROKT [facility] [id number] [place] [address]
--- OUTSIDE RECORDS SUMMARY | 2019-11-09 10:05 | XMS REPORT | Summary of Care ---
Author Author [facility] - Health Organization [facility] - Health Address Unknown Phone Unavailable Care Team Providers Care Project/Production Manager Imaging Name Role Phone Fabien Fernandes MD Unavailable Marvin Oconnor MD PCP Ulysses Lazar 25 Unavailable Reason for Visit * Reason Comments Pain Encounter Details Care Team Description Date Type Department Sukh Harris MD [id number] [place] [address] Spondylosis of lumbar region without mye lopathy or radiculopathy (Primary Dx); Radiculopathy of thoracolumbar region 07/13/2019 Office Visit [facility] - [address], [address] [place] [address] Allergies Comments Active Allergy Reactions Severity Noted Date Azithromycin Itching 01/07/2019 Ciprofloxacin Rash 01/27/2018 Clindamycin Other - See Medium 10/05/2016 comments, Itching Clonazepam Itching, Medium 11/23/2017 Rash, Swelling All steroids-muscle weakness Corticosteroids Other - See 01/20/2016 (Glucocorticoids) comments Iodine Rash 10/05/2016 Lincomycin Rash Medium 09/15/2017 Nitrofurantoin Rash 01/27/2018 Other [place]-3s Anaphylaxis 01/27/2018 States it would be fatal [...] bedtime. 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 01/12/2019 Overview: Added automatically from request for josé luis silvestre [id number] Obesity (BMI 30-39.9) 12/16/2018 Recurrent UTI 05/17/2018 [...] automatically from request for josé luis silvestre [id number] documented as of this encounter (statuses as [...] Comments Vital Sign 147/92 07/13/2019 1:10 PM CHROMOSOMAL DISORDERS COUNSELOR Blood Pressure 92 07/13/2019 1:10 PM CHROMOSOMAL DISORDERS COUNSELOR Pulse - - Temperature - - Respiratory Rate - - Oxygen Saturation - - Inhaled Oxygen Concentration 83 kg (183 lb) 07/13/2019 1:10 PM CHROMOSOMAL DISORDERS COUNSELOR Weight 154.9 cm (5' 1") 07/13/2019 1:10 PM CHROMOSOMAL DISORDERS COUNSELOR Height 34.58 07/13/2019 1:10 PM CHROMOSOMAL DISORDERS COUNSELOR Body Mass Index documented in this encounter Progress Notes * Sukh Harris MD - 07/13/2019 1:00 PM CHROMOSOMAL DISORDERS COUNSELOR Chief Complaint:back pain in remission after the [...] keeps her free from major pain issues. MOSOMAL DISORDERS COUNSELOR documented in this encounter Plan of Treatment Care Team Description Date Type Specialty Marvin Oconnor MD [address] [place] [address] [place] [address] 07/13/2019 Office Visit Internal Medicine Boom Santiago MD [address] [place] [phone] 07/20/2019 Office Visit Cardiology Beth Marquez MD [address] [place] [phone] 07/21/2019 Office Visit Psychiatry Marvin Oconnor MD [address] [place] [address] [place] [address] [phone] 08/07/2019 Office Visit Internal VanderbiltMarvin Oconnor MD [address] [place] [address] [place] [address] 08/21/2019 Office Visit Internal Medicine Zoila Rodas AGNP [address] [place] [address] [phone] 09/06/2019 Office Visit Nephrology Eleno Mcnamara MD [address] [place] [address] [phone] 09/15/2019 Office Visit Obstetrics & Gyneco johan Zhou, Dieter Vazquez MD [address] [place] [address] [id number] [place], [place] [address] 01/03/2020 Office Visit Pulmonary Disease Health Maintenance [...] / Dates Group [facility] [id number] 2019-P [address] [place] [address] documented as of this encounter
--- OUTSIDE RECORDS SUMMARY | 2019-11-09 10:05 | XMS REPORT | Summary of Care ---
Author Author [facility] - Health Organization [facility] - Health Address Unknown Phone Unavailable Care Team Providers Care Sheet Rock Taper Helper Name Role Phone Fabien Fernandes MD Unavailable Marvin Oconnor MD PCP [place]ady Team 25 Unavailable Encounter Details Care Team Description Date Type Department Doctor Unassigned, [place] [address] [place] [address] 07/17/2019 Orders Only [facility] [address] [place] [address] Allergies Comments Active Allergy Reactions Severity Noted Date Azithromycin Itching 01/07/2019 Ciprofloxacin Rash 01/27/2018 Clindamycin Other - See Medium 10/05/2016 comments, Itching Clonazepam Itching, Medium 11/23/2017 Rash, Swelling All steroids-muscle weakness Corticosteroids Other - See 01/20/2016 (Glucocorticoids) comments Iodine Rash 10/05/2016 Lincomycin Rash Medium 09/15/2017 Nitrofurantoin Rash 01/27/2018 Other [place]-3s Anaphylaxis 01/27/2018 States it would be fatal Penicillins Other - See High 01/20/2016 comments, Shortness of Breath Shellfish Derived Other - See 03/18/2019 comments BActrim Rash Sulfamethizole Rash 07/05/2019 New string of tetanus- went to ER , medication for throat closing up Tetanus Vaccines And Swelling High 6 Toxoid documented as of this encounter (statuses as of 07/17/2019) Medications End Date Status Medication Sig Dispensed [...] bedtime. 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 01/12/2019 Overview: Added automatically from request for josé luis silvestre [id number] Obesity (BMI 30-39.9) 12/16/2018 Recurrent UTI 05/17/2018 [...] as of this encounter (statuses as of 07/17/2019) Resolved Problems Problem Noted Date Resolved Date Spondylosis of lumbar region without myelopathy or radiculo johanna 01/12/2019 01/16/2019 Overview: Added automatically from request for josé luis penacarrie [id number] documented as of this encounter (statuses as of 07/17/2019) Immunizations Name Administration Dates Next Due Influenza [...] Description Date Type Specialty Boom Santiago MD [address] [place] [address] [phone] 07/20/2019 Office Visit Cardiology James Palumbo MD [address] [facility] [address] [facility] [place], [place] [address] Beth Marquez MD [address] [place] [address] [phone] 07/21/2019 Office Visit Psychiatry Marvin Oconnor MD [address] [place] [address] [place] [address] [phone] 08/21/2019 Office Visit Internal Medicine Zoila Rodas AGNP [address] [place] [address] [phone] 09/06/2019 Office Visit Nephrology Eleno Mcnamara MD [address] [place] [address] [phone] 09/15/2019 Office Visit Obstetrics & Gyneco logy Sukh Harris MD [address] [facility] [id number] [place], [place] [phone] 11/23/2019 Office Visit Pain Medicine Dieter Zhou MD [address] [facility] [id number] [place], [place] [phone] 01/03/2020 Office Visit Pulmonary Disease Health Maintenance [...] Associated Diag nosis EXTERNAL PROVIDER RECORDS Routine 07/17/2019 12:01 AM TRAVERSE ROD 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 [facility] [address] [place] [address] documented as of this encounter
--- OUTSIDE RECORDS SUMMARY | 2019-11-09 10:05 | XMS REPORT | Summary of Care ---
Author Author [facility] - Health Organization [facility] - Health Address Unknown Phone Unavailable Care Team Providers Care Silverer Name Role Phone Fabien Fernandes MD Unavailable Marvin Oconnor MD PCP Ulysses Lazar 25 Unavailable Reason for Visit * Reason Comments Urinary Problem Encounter Details Care Team Description Date Type Department Marvin Oconnor MD [address] [place] [address] Dysuria (Primary Dx); Pseudoseizure 07/13/2019 [facility] [address] [place] [phone] Allergies Comments Active Allergy Reactions Severity Noted Date Azithromycin Itching 01/07/2019 Ciprofloxacin Rash 01/27/2018 Clindamycin Other - See Medium 10/05/2016 comments, Itching Clonazepam Itching, Medium 11/23/2017 Rash, Swelling All steroids-muscle weakness Corticosteroids Other - See 01/20/2016 (Glucocorticoids) comments Iodine Rash 10/05/2016 Lincomycin Rash Medium 09/15/2017 Nitrofurantoin Rash 01/27/2018 Other [place]-3s Anaphylaxis 01/27/2018 States it would be fatal [...] bedtime. 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 01/12/2019 Overview: Added automatically from request for ordonez rgery [id number] Obesity (BMI 30-39.9) 12/16/2018 Recurrent UTI 05/17/2018 [...] Added automatically from request for ordonez rgery [id number] documented as of this encounter (statuses as [...] Comments Vital Sign 159/79 07/13/2019 3:05 PM PROMOTIONS INTERN Blood Pressure 86 07/13/2019 3:05 PM PROMOTIONS INTERN Pulse 37 C (98.6 F) 07/13/2019 3:05 PM PROMOTIONS INTERN Temperature 18 07/13/2019 3:05 PM PROMOTIONS INTERN Respiratory Rate 95% 07/13/2019 3:05 PM PROMOTIONS INTERN RA Oxygen Saturation - - Inhaled Oxygen Concentration 83.5 kg (184 lb) 07/13/2019 3:05 PM PROMOTIONS INTERN Weight 154.9 cm (5' 1") 07/13/2019 3:05 PM PROMOTIONS INTERN Height 34.77 07/13/2019 3:05 PM PROMOTIONS INTERN Body Mass Index documented in this encounter Progress Notes * Marvin Oconnor MD - 07/13/2019 3:00 PM PROMOTIONS INTERN [facility] Note CC: Dysuria HPI: John [...] triamcinolone 55 mcg nasal inhaler Use 1 [place] in each nostril 2 (two) times daily. [...] Right 01/23/2019 Surgeon: Sukh Harris MD; Location: [place] [facility] RADIOFREQUENCY THERMOCOAGULATION N/A 02/15/2019 Surgeon: Sukh Harris MD; Location: [place] OR Location TONSILLECTOMY Family Hx: Family History [...] qhs prn - c/w psychotherapy by [facility] - flu vaccine 04/17/19 - shingrix deferred; readdress next visit - allergic to Tdap - Colonoscopydone, 08/2016 Dr. Kianna Hoyt, found hemorrhoids and polyps, plan to repeat in 5 years - pap smear done 08/02/18 - mammogram done 08/08/18 Follow-up: 4 months Marvin Oconnor MD OTIONS INTERN documented in this encounter Plan of Treatment Care Team Description Date Type Specialty Boom Santiago MD [address] [place] [phone] 07/20/2019 Office Visit Cardiology Beth Marquez MD [address] [place] [address] [phone] 07/21/2019 Office Visit Psychiatry Marvin Oconnor MD [address] [place], [place] [phone] 08/21/2019 Office Visit Internal Medicine Zoila Rodas AGNP [address] [place] [address] [phone] 09/06/2019 Office Visit Nephrology Eleno Mcnamara MD [address] [place] [address] [phone] 09/15/2019 Office Visit Obstetrics & Gyneco Sukh Rocha MD [address] [facility] [id number] [place], [place] [address] 11/23/2019 Office Visit Pain Medicine Dieter Zhou MD [address] [facility] [id number] [place], [place] [address] 01/03/2020 Office Visit Pulmonary Disease Date/Time Name Type Priority Associated Diag noses 07/13/2019 4:19 PM PROMOTIONS INTERN URINE CULTURE LAB Routine Dysuria Order Schedule [...] encounter Results * URINALYSIS (07/13/2019 4:19 PM PROMOTIONS INTERN) APPEARANCE Hazy (A) Clear [facility] [...] HPF [facility] BACTERIA Negative Negative [facility] MUCOUS Moderate (A) Negative LPF [facility] SQ EPITH 18 (H) <=2 HPF [facility] Specimen Urine - URINE, CLEAN CATCH Performing Organization Address City/State/Zipcode Ph one Number [facility] CLIA: [id number], [address] [place] [address] [facility] documented in this encounter Visit Diagnoses Diagnosis Dysuria - Primary Pseudoseizure Other convulsions documented in this encounter Insurance Type Payer Benefit Subscriber ID Effective Phone Address Plan / Dates Group HMO [facility] [id number] 2019-P [address] [facility] [address] [place] [address] documented as of this encounter
--- OUTSIDE RECORDS SUMMARY | 2019-11-09 10:05 | XMS REPORT | Summary of Care ---
Author Author [facility] - Health Organization [facility] - Health Address Unknown Phone Unavailable Care Team Providers Care Licensed Optician Name Role Phone Fabien Fernandes MD Unavailable Marvin Oconnor MD PCP Ulysses Lazar 25 Unavailable Reason for Visit * Reason Comments Results Encounter Details Care Team Description Date Type Department Marvin Oconnor MD [address] [place] [address] Results 07/14/2019 [facility]phone [facility] [address] [place] [phone] Allergies Comments Active Allergy Reactions Severity Noted Date Azithromycin Itching 01/07/2019 Ciprofloxacin Rash 01/27/2018 Clindamycin Other - See Medium 10/05/2016 comments, Itching Clonazepam Itching, Medium 11/23/2017 Rash, Swelling All steroids-muscle weakness Corticosteroids Other - See 01/20/2016 (Glucocorticoids) comments Iodine Rash 10/05/2016 Lincomycin Rash Medium 09/15/2017 Nitrofurantoin Rash 01/27/2018 Other [place]-3s Anaphylaxis 01/27/2018 States it would be [...] bedtime. 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 01/12/2019 Overview: Added automatically from request for josé luis silvestre [id number] Obesity (BMI 30-39.9) 12/16/2018 Recurrent UTI 05/17/2018 [...] automatically from request for josé luis silvestre [id number] documented as of this encounter (statuses as [...] Description Date Type Specialty Boom Santiago MD [address] [place] [phone] 07/20/2019 Office Visit Cardiology James Palumbo MD [address] [facility] [address] [facility] [place], [place] [id number] Beth Marquez MD [address] [place] [address] [phone] 07/21/2019 Office Visit Psychiatry Marvin Oconnor MD [address] [place] [place] [address] [phone] 08/21/2019 Office Visit Internal Medicine Zoila Rodas AGNP [address] [place] [address] [phone] 09/06/2019 Office Visit Nephrology Eleno Mcnamara MD [address] [place] [address] [phone] 09/15/2019 Office Visit Obstetrics & Gyneco rowenay Sukh Harris MD [address] [place] [address] [id number] [place], [place] [address] 11/23/2019 Office Visit Pain Medicine Dieter Zhou MD [address] [place] [address] [id number] [place], [place] 9[address] 01/03/2020 Office Visit Pulmonary Disease Health Maintenance [...] Phone Address Plan / Dates Group [facility] [id number] 2019-P [address] [employer] [facility] [employer] [facility] [id number] [place] [address] documented as of this encounter
--- OUTSIDE RECORDS SUMMARY | 2019-11-09 10:05 | XMS REPORT | Summary of Care ---
Author Author [facility] - Health Organization [facility] - Health Address Unknown Phone Unavailable Care Team Providers Care Solderer Assembly Repair Name Role Phone Fabien Fernandes MD Unavailable Marvin Oconnor MD PCP Cady Team 25 Unavailable Reason for Visit * Reason Comments Rash Allergic reaction Abdominal Pain Urinary Problem Encounter Details Care Team Description Date Type Department Cecilio Aceves MD [id number] [place] [address] Rash (Primary Dx); Psychogenic nonepileptic seizure; Acute stress reaction 07/05/2019 Emergency [facility] [address] [place] [address] Allergies Comments Active Allergy Reactions Severity Noted Date Azithromycin Itching 01/07/2019 Ciprofloxacin Rash 01/27/2018 Clindamycin Other - See Medium 10/05/2016 comments, Itching Clonazepam Itching, Medium 11/23/2017 Rash, Swelling All steroids-muscle weakness Corticosteroids Other - See 01/20/2016 (Glucocorticoids) comments Iodine Rash 10/05/2016 Lincomycin Rash Medium 09/15/2017 Nitrofurantoin Rash 01/27/2018 Other Riva-3s Anaphylaxis 01/27/2018 States it would be fatal Penicillins Other - See High 01/20/2016 comments, Shortness of Breath Shellfish Derived Other - See 03/18/2019 comments BActrim Rash Sulfamethizole Rash 07/05/2019 New string of tetanus- went to ER , medication for throat closing up Tetanus Vaccines And Swelling High 6 Toxoid documented as of this encounter (statuses as of 07/05/2019) Medications End Date Status Medication Sig Dispensed [...] bedtime. Active triamcinolone 55 mcg Use 1 [place] 1 Bottle 1 04/03 nasal inhalerIndications: in [...] 9 Psychogenic nonepileptic mouth daily seizure Active gabapentin 400 mg TAKE 1 90 capsule 2 05/16/20 1 capsuleIndications: CAPSULE BY 9 Radiculopathy of MOUTH THREE thoracolumbar region TIMES A DAY Active carBAMazepine 200 mg 12 0 hr tablet 9 07/10/2019 Active sulfamethoxazole-trimetho Take 1 tablet 14 tablet 0 prim 800-160 mg per by mouth 2 0 tabletIndications: (two) times Psychogenic nonepileptic daily for 7 seizure, Urinary tract days. 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 01/12/2019 Overview: Added automatically from request for josé luis silvestre [id number] Obesity (BMI 30-39.9) 12/16/2018 Recurrent UTI 05/17/2018 [...] as of this encounter (statuses as of 07/05/2019) Resolved Problems Problem Noted Date Resolved Date Spondylosis of lumbar region without myelopathy or radiculo johanna 01/12/2019 01/16/2019 Overview: Added automatically from request for josé luis silvestre [id number] documented as of this encounter (statuses as of 07/05/2019) Immunizations Name Administration Dates Next Due Influenza [...] Signs Reading Time Taken Comments Vital Sign 140/77 07/05/2019 1:59 PM SHOT GRINDER OPERATOR Blood Pressure 61 07/05/2019 1:59 PM SHOT GRINDER OPERATOR Pulse 36.9 C (98.5 F) 07/05/2019 1:00 PM SHOT GRINDER OPERATOR Temperature 16 07/05/2019 1:59 PM SHOT GRINDER OPERATOR Respiratory Rate 93% 07/05/2019 1:59 PM SHOT GRINDER OPERATOR Oxygen Saturation - - Inhaled Oxygen Concentration 83.9 kg (185 lb) 07/05/2019 1:00 PM SHOT GRINDER OPERATOR Weight - - Height 34.96 07/05/2019 10:27 AM SHOT GRINDER OPERATOR Body Mass Index documented in this encounter Discharge Instructions * Instructions* Cecilio Aceves MD - 07/05/2019 You have been diagnosed with : rash You have been prescribed (If this is an antibiotic please finish the entire pres cription): stop bactrim. Drink lots of water. Please follow up with PCP in 2-3 days to be rechecked. Return to the closest Emergency Department for: measured fever over 100.4F with rash, peeling skin, other concerning symptoms documented in this encounter Plan of Treatment Care Team Description Date Type Specialty Sukh Harris MD [address] [facility] [id number] [place] [address] 07/13/2019 Office Visit Pain [place] MD [address] [place] [address] 07/13/2019 Office Visit Internal Medicine Boom Santiago MD 301 [facility] [place] [phone] 07/20/2019 Office Visit Cardiology Beth Marquez MD [address] [place] [address]. [place] [phone] 07/21/2019 Office Visit Psychiatry Marvin Oconnor MD [address] [place] [address] [place] [address] [phone] 08/07/2019 Office Visit Internal [place] MD [address] [place] [address] [place] [address] 08/21/2019 Office Visit Internal Medicine Zoila Rodas AGNP [address] [place] [address] [phone] 09/06/2019 Office Visit Nephrology Eleno Mcnamara MD [address] [place] [address] [phone] 09/15/2019 Office Visit Obstetrics & Gyneco Dieter Powell MD [address] [place] [address] [id number] [place], [place] [phone] 01/03/2020 Office Visit Pulmonary Disease Health Maintenance Due Date Last Done Comments HEPATITIS C (HCV) SCREEN 1955 PNEUMOCOCCAL 0-64 YEARS 02/23/1962 COMBINED SERIES (1 of 1 - PPSV23) DTaP,Tdap,and Td Vaccines 02/23/1967 (1 - Tdap) Zoster Recombinant 02/23/2006 Vaccine (SHINGRIX) (1 of 2) Breast Cancer Screening 08/08/2019 08/08/2018 (MAMMOGRAM) PAP SMEAR 08/02/2021 08/02/2018 COLONOSCOPY 06/22/2023 06/22/2018, 017 INFLUENZA VACCINE Completed 04/17/2019, 018, 03/21/2017 documented as of this encounter Procedures Comments Procedure Name Priority Date/Time Associated Diag nosis CBC WITH DIFFERENTIAL STAT 07/05/2019 Rash 1:35 PM SHOT GRINDER OPERATOR CBC WITH DIFFERENTIAL STAT 07/05/2019 Rash 1:35 PM SHOT GRINDER OPERATOR BASIC METABOLIC PANEL STAT 07/05/2019 Rash (NA, K, CL, CO2, GLUCOSE, 1:35 PM SHOT GRINDER OPERATOR BUN, CREATININE, CA) documented in this encounter Results * CBC WITH DIFFERENTIAL (07/05/2019 1:35 PM SHOT GRINDER OPERATOR) WBC 5.02 4.30 - 11.10 [facility] 10*3/L [facility] RBC 4.40 3.93 - 5.25 10*6/L [facility] HGB 12.5 11.6 - 15.0 g/dL [facility] HCT 37.5 35.7 - 45.2 % [facility] MCV 85.2 80.6 - 95.5 fL [facility] MCH 28.4 25.9 - 32.8 pg [facility] MCHC 33.3 31.6 - 35.1 g/dL [facility] RDW-SD 42.9 39.0 - 49.9 fL [facility] RDW-CV 13.8 12.0 - 15.5 % [facility] PLT 151 (L) 166 - 358 10*3/L [facility] MPV 10.8 9.5 - 12.9 fL [facility] NRBC/100 WBC 0.0 0.0 - 10.0 /100 WBCs [facility] NRBC x10^3 <0.01 10*3/L [facility] GRAN MAT (NEUT) 64.5 % [facility] Y % [facility] IMM GRAN % 0.40 % [facility] LYMPH % 25.3 % [facility] MONO % 9.2 % [facility] EOS % 0.2 % [facility] BASO % 0.4 % [facility] GRAN MAT 3.24 1.88 - 7.09 10*3/uL [facility] x10^3(ANC) [facility] IMM GRAN x10^3 <0.03 0.00 - 0.06 10*3/uL [facility] LYMPH x10^3 1.27 (L) 1.32 - 3.29 10*3/uL [facility] MONO x10^3 0.46 0.33 - 0.92 10*3/uL [facility] EOS x10^3 <0.03 (L) 0.03 - 0.39 10*3/uL [facility] BASO x10^3 <0.03 0.01 - 0.07 10*3/uL [facility] Specimen Blood - HAND, RIGHT Performing Organization Address City/[facility] Ph one Number [facility] CLIA: [id number], [address] [place], [place] [address] [facility] * BASIC METABOLIC PANEL (NA, K, CL, CO2, GLUCOSE, BUN, CREATININE, CA) (07/05/2019 1:35 PM SHOT GRINDER OPERATOR) NA 140 135 - 145 mmol/L [facility] K 3.2 (L) 3.5 - 5.0 mmol/L [facility] CL 104 98 - 108 mmol/L [facility] CO2 TOTAL 26 23 - 31 mmol/L [facility] AGAP 10 2 - 16 [facility] BUN 15 7 - 23 mg/dL [facility] GLUCOSE 92 70 - 110 mg/dL [facility] CREATININE 0.61 0.50 - 1.04 mg/dL [facility] CALCIUM 9.0 8.6 - 10.6 mg/dL [facility] R[facility] eGFR 99.1 mL/min/1.73m2 [facility] Calculation SERVICES-[facility] (Non-[facility]) eGFR 120.1 mL/min/1.73m2 [facility] Calculation [facility] Specimen Blood - HAND, RIGHT Narrative Performed At Association of Glomerular Filtration Rate (GFR) and S taging of Kidney Disease* [facility] + + +------ + [facility] | GFR (mL/min/1.73 m2) | With Kidney Damage | [facility] Kidney Damage LAMAR + + -------+ + | >90 | [...] abnormalities in imaging tests). Performing Organization Address City/[facility] Ph one Number [facility] CLIA: [id number], [address] [place], [place] [address] [facility] documented in this encounter Visit Diagnoses Diagnosis Rash - Primary Rash and other nonspecific skin eruptio n Psychogenic nonepileptic seizure Acute stress reaction Other acute reactions to stress documented in this encounter Insurance Type Payer Benefit Subscriber ID Effective Phone Address Plan / Dates Group HMO [facility] [id number] 2019[facility] [facility] [id number] [email or web address] [id number] (Home) [place] [address] documented as of this encounter"
--- OUTSIDE RECORDS SUMMARY | 2019-11-09 10:06 | XMS REPORT | Summary of Care ---
Author Author [facility] - Health Organization [facility] - Health Address Unknown Phone Unavailable Care Team Providers Care Staff Training And Development Manager Name Role Phone Fabien Fernandes MD Unavailable Marvin Oconnor MD PCP Ulysses Lazar 25 Unavailable Reason for Visit * Reason Comments Assessment Encounter Details Care Team Description Date Type Department Merrill Parks MD [address] [place] [address] Assessment 08/07/2019 Telephone [facility] Surgery- [address] [place] [address] Allergies Comments Active Allergy Reactions Severity Noted Date Azithromycin Itching 01/07/2019 Ciprofloxacin Rash 01/27/2018 Clindamycin Other - See Medium 10/05/2016 comments, Itching Clonazepam Itching, Medium 11/23/2017 Rash, Swelling All steroids-muscle weakness Corticosteroids Other - See 01/20/2016 (Glucocorticoids) comments Iodine Rash 10/05/2016 Lincomycin Rash Medium 09/15/2017 Nitrofurantoin Rash 01/27/2018 Other [place]-3s Anaphylaxis 01/27/2018 States it would be fatal Penicillins Other - See High 01/20/2016 comments, Shortness of Breath Shellfish Derived Other - See 03/18/2019 comments BActrim Rash Sulfamethizole Rash 07/05/2019 New string of tetanus- went to ER , medication for throat closing up Tetanus Vaccines And Swelling High 6 Toxoid documented as of this encounter (statuses as of 08/07/2019) Medications End Date Status Medication Sig Dispensed Refills Start Date Active cetirizine 10 mg tablet Take 10 mg by 3 mouth every 8 morning. Active omeprazole 40 mg capsule 40 mg 2 (two) 3 08/19 times daily. 9 Active dicyclomine 20 mg tablet Take 20 [...] mouth 3 (three) times daily as needed. Active Cholecalciferol, Vitamin Take 1 tablet 90 tablet 3 D3, 400 unit by mouth 0 ChewIndications: Vitamin daily. 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 [address] [phone] 08/21/2019 Office Visit Internal Medicine Della, Laurie, MANUFACTURING RECRUITER [address] [place], [place] [phone] 08/31/2019 Office Visit Psychiatry Zoila Rodas AGNP [address] [place] [address] [phone] 09/06/2019 Office Visit Nephrology Beth Marquez MD [address] [place] [phone] 09/07/2019 Office Visit Psychiatry Kashif Cee MD [address] [place] [phone] 09/14/2019 Office Visit Neurology Eleno Mcnamara MD [address] [place] [address] [phone] 09/15/2019 Office Visit Obstetrics & Gyneco logy Sukh Harris MD [address] [facility] [id number] [place], [place] [phone] 11/23/2019 Office Visit Pain Medicine ZhouDieter stovall MD [address] [facility] [id number] [place], [place] [address] 01/03/2020 Office Visit Pulmonary Disease Health Maintenance [...] Phone Address Plan / Dates Group [facility] [id number] 2019-P [address] [facility] [id number] [place] [address] documented as of this encounter
--- OUTSIDE RECORDS SUMMARY | 2019-11-09 10:06 | XMS REPORT | Summary of Care ---
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 [facility] KnowFu [facility] ON Visit [facility]ICS [facility] [address], [address]; [address] [place] [address] Allergies Comments Active Allergy Reactions Severity Noted Date Azithromycin Itching 01/07/2019 Ciprofloxacin Rash 01/27/2018 Clindamycin Other - See Medium 10/05/2016 comments, Itching Clonazepam Itching, Medium 11/23/2017 Rash, Swelling All steroids-muscle weakness Corticosteroids Other - See 01/20/2016 (Glucocorticoids) comments Iodine Rash 10/05/2016 Lincomycin Rash Medium 09/15/2017 Nitrofurantoin Rash 01/27/2018 Other [place]-3s Anaphylaxis 01/27/2018 States it would be fatal Penicillins Other - See High 01/20/2016 comments, Shortness of Breath Shellfish Derived Other - See 03/18/2019 comments BActrim Rash Sulfamethizole Rash 07/05/2019 New string of tetanus- went to ER , medication for throat closing up Tetanus Vaccines And Swelling High 6 Toxoid documented as of this encounter (statuses as of 07/26/2019) Medications End Date Status Medication Sig Dispensed Refills Start Date Active cetirizine 10 mg tablet Take 10 mg by 3 mouth every 8 morning. Active omeprazole 40 mg capsule 40 mg 2 (two) 3 08/19 times daily. 9 Active VITAMIN D2 50,000 unit TAKE ONE 2 01 capsule CAPSULE BY 9 MOUTH ONCE [...] mouth 3 (three) times daily as needed. 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 01/12/2019 Overview: Added automatically from request for ordonez rgery [id number] Obesity (BMI 30-39.9) 12/16/2018 Recurrent UTI 05/17/2018 [...] as of this encounter (statuses as of 07/26/2019) Resolved Problems Problem Noted Date Resolved Date Spondylosis of lumbar region without myelopathy or radiculo johanna 01/12/2019 01/16/2019 Overview: Added automatically from request for josé luis silvestre [id number] documented as of this encounter (statuses as of 07/26/2019) Immunizations Name Administration Dates Next Due Influenza [...] Specialty Dieter Zhou MD [address] [id number] [place], [place] [id number] Test, Vtc Pulmonary Function 07/28/2019 Orthodontic Lab Technician Pulmonary Function Visit Technologist Laurie Hull LPC [address] [place], [place] [phone] 08/03/2019 Office Visit Psychiatry Marvin Oconnor MD [address] [place], [place] [phone] 08/21/2019 Office Visit Internal Medicine Zoila Rodas AGNP [address] [place] [address] [phone] 09/06/2019 Office Visit Nephrology Beth Marquez MD [address] [place] [phone] 09/07/2019 Office Visit Psychiatry Kashif Cee MD [address] [place] [phone] 09/14/2019 Office Visit Neurology Eleno Mcnamara MD [address] [place] [address] [phone] 09/15/2019 Office Visit Obstetrics & Gyneco Sukh Rocha MD [address] [place] [address] [id number] [place], [place] [phone] 11/23/2019 Office Visit Pain Medicine Dieter Zhou MD [address] [place] [address] [id number] [place], [place] [phone] 01/03/2020 Office Visit Pulmonary Disease Date/Time Name Type Priority Associated Diag noses 07/26/2019 4:25 PM 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 [facility] [id number] [place] [address] (Home) [place] [address] documented as of this encounter
--- OUTSIDE RECORDS SUMMARY | 2019-11-09 10:06 | XMS REPORT | Summary of Care ---
Author Author [facility] - Health Organization [facility] - Health Address Unknown Phone Unavailable Care Team Providers Care Shipsmith Name Role Phone Fabien Fernandes MD Unavailable Marvin Oconnor MD PCP Ulysses Lazar 25 Unavailable Reason for Referral * (Routine) Referred By Contact Referred To Contact Status Reason Specialty Diagnoses / Procedures Marvin Oconnor MD [address] [facility] [address] [place] [id number] New Request Orthopedic Diagnoses Surgery Chronic pain of right ankle P rocedures CONSULT/REFERRAL ORTHOPAEDIC SURGERY * Radiology Services (Routine) Referred By Contact Referred To Contact Status Reason Specialty Diagnoses / Procedures Marvin Oconnor MD [address] [facility] [employer] [address] [address] [place] [id number] New Request Diagnostic Diagnoses Radiology Osteoporosis without current pathological fracture, unspecified osteoporosis type P rocedures DEXA AXIAL (HIP AND SPINE) Reason for Visit * Reason Comments Bladder Pain DYSURIA Encounter Details Care Team Description Date Type Department Marvin Oconnor MD [address] [facility] [employer] [address] [address] [place] [phone] Osteoporosis without current pathologica l fracture, unspecified osteoporosis type (Primary Dx); Dysuria; Need for shingles vaccine; Chronic pain of right ankle 07/26/2019 Office Visit [facility] [address] [place] [phone] Allergies Comments Active Allergy Reactions Severity Noted Date Azithromycin Itching 01/07/2019 Ciprofloxacin Rash 01/27/2018 Clindamycin Other - See Medium 10/05/2016 comments, Itching Clonazepam Itching, Medium 11/23/2017 Rash, Swelling All steroids-muscle weakness Corticosteroids Other - See 01/20/2016 (Glucocorticoids) comments Iodine Rash 10/05/2016 Lincomycin Rash Medium 09/15/2017 Nitrofurantoin Rash 01/27/2018 Other [place]-3s Anaphylaxis 01/27/2018 States it would be fatal Penicillins Other - See High 01/20/2016 comments, Shortness of Breath Shellfish Derived Other - See 03/18/2019 comments BActrim Rash Sulfamethizole Rash 07/05/2019 New string of tetanus- went to ER , medication for throat closing up Tetanus Vaccines And Swelling High 6 Toxoid documented as of this encounter (statuses as of 07/27/2019) Medications End Date Status Medication Sig Dispensed [...] Dysuria (two) times daily for 7 days. 07/26/2019 Discontinued LORazepam 0.5 mg tablet Take 0.5 mg 0 by mouth 8 daily. 07/26/2019 Discontinued SERTraline 100 mg tablet Take 100 mg 0 by mouth. 07/26/2019 Discontinued amitriptyline 10 mg Take 10 mg by 0 tablet mouth at bedtime. 07/26/2019 Discontinued triamcinolone 55 mcg Use 1 [place] 1 Bottle 1 04/03 nasal inhalerIndications: in each 9 Viral URI with cough, nostril 2 Nasal sinus congestion (two) times daily. 07/26/2019 Discontinued LISINOPRIL 5 mg TAKE 1 TABLET 30 tablet 1 04/06/20 1 tabletIndications: BY MOUTH 9 Essential hypertension EVERY DAY 07/26/2019 Discontinued ketorolac 10 mg Take 1 tablet 10 tablet 0 04/11/20 1 tabletIndications: Chest by mouth 9 pain, unspecified type, every 6 (six) Atypical chest pain, hours as Psychogenic nonepileptic needed for seizure Pain (scale 4-6) or Pain (scale 7-10). 07/26/2019 Discontinued carBAMazepine 200 mg 12 0 hr tablet 9 documented as of this encounter (statuses as of 07/27/2019) Active Problems Problem Noted Date Chronic lumbar radiculopathy 01/12/2019 Overview: Added automatically from request for ordonez rgery [id number] 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 01/12/2019 Overview: Added automatically from request for ordonez rgery [id number] Obesity (BMI 30-39.9) 12/16/2018 Recurrent UTI 05/17/2018 [...] as of this encounter (statuses as of 07/27/2019) Resolved Problems Problem Noted Date Resolved Date Spondylosis of lumbar region without myelopathy or radiculo johanna 01/12/2019 01/16/2019 Overview: Added automatically from request for josé luis silvestre [id number] documented as of this encounter (statuses as of 07/27/2019) Immunizations Name Administration Dates Next Due Influenza [...] Signs Reading Time Taken Comments Vital Sign 144/91 07/26/2019 3:13 PM [employer] Blood Pressure 72 07/26/2019 3:13 PM [employer] Pulse 37 C (98.6 F) 07/26/2019 3:13 PM [employer] Temperature 18 07/26/2019 3:13 PM [employer] Respiratory Rate 96% 07/26/2019 3:13 PM [employer] RA Oxygen Saturation - - Inhaled Oxygen Concentration 82.6 kg (182 lb) 07/26/2019 3:13 PM [employer] Weight 154.9 cm (5' 1") 07/26/2019 3:13 PM [employer] Height 34.39 07/26/2019 3:13 PM [employer] Body Mass Index documented in this encounter Progress Notes * Marvin Oconnor MD - 07/26/2019 3:30 PM [employer] [facility] Note CC: Dysuria HPI: John Nieto is a 64 year old female with PMH of non-epileptic seizure, ch ronic interstitial cystitis, HTN, HLD,multiple drug allergies, osteoporosis, anxiety/depression, seasonal allergies, kidney stones presents for evaluation of dysuria. Patient notes she has the same burning with urination, before during and after every time she needs to go and she urinates frequently, at least every hour. She says often she cannot get to the restroom in time and urinates in her pull-ups. She has trouble saying if this has changed from before but finds it distressing and this bladder discomfort is often a trigger for her pseudoseizur es. Saw neurologist on 07/24/19 at [facility] for migraines (possibly to reduce the number of psuedoseizures) With plans to get botox injections depending on if insurance will pay for it. Melatonin has been helpful according to the patient in getting more sleep. Also started using CBD oil TID which both the patient and has said it helps to calm the patient down and decrease frequency of the seizu res. In regards to the patient's other medical problems, patient recently followed up with her OS GI doc who told her that the EGD biopsies looked good and increased one of her medications to BID. Patient also has a known diagnosis of osteopor osis from a DEXA done in 09/2017 that shows osteoporosis of bilateral femoral nec k. Patient is unsure if she had been on an oral bisphosphonate before, thinks m aybe have tried alendronate and wasn't able to tolerate. Medications: Current Outpatient Medications Medication Sig cefUROXime 250 mg tablet Take 1 tablet by mouth 2 (two) times daily for 7 da ys. cannabidiol, CBD, (CANNABIDIOL ORAL) Take by mouth 3 (three) times daily as needed. coenzyme Q10 100 mg softgel Take 100 mg by mouth. SERTraline 50 mg tablet Take one tablet by mouth daily gabapentin 400 mg capsule TAKE 1 CAPSULE BY MOUTH THREE TIMES A DAY hydroCHLOROthiazide 25 mg tablet Take 1 tablet by mouth daily. famotidine 40 mg tablet Take 40 mg by mouth 2 (two) times daily. montelukast 10 mg tablet Take 10 mg by mouth. dicyclomine 20 mg tablet Take 20 mg by mouth 4 (four) times daily. omeprazole 40 mg capsule 40 mg 2 (two) times daily. cetirizine 10 mg tablet Take 10 mg by mouth every morning. hydrOXYzine 25 mg tablet Take 25 mg by mouth 2 (two) times daily. VITAMIN D2 50,000 unit capsule TAKE ONE CAPSULE BY MOUTH ONCE A WEEK PMHx: Past Medical History: Diagnosis Date Depression Frequent falls Hyperlipidemia Hypertension IBS (irritable bowel syndrome) Low back pain Osteoporosis b/l hip Seizure (nonepileptic psychogenic) PSurgical Hx: Past Surgical History: Procedure Laterality Date CHOLECYSTECTOMY HYSTERECTOMY MEDIAL BRANCH BLOCK (SHX) Right 01/23/2019 Surgeon: Sukh Harris MD; Location: [facility] RADIOFREQUENCY THERMOCOAGULATION N/A 02/15/2019 Surgeon: Sukh Harris MD; Location: [facility] TONSILLECTOMY Family Hx: Family History Problem Relation Age of Onset Heart Mother Hypertension Mother Diabetes Father Hypertension Father Social Hx: Social History Tobacco Use Smoking status: Never Smoker Smokeless tobacco: Never Used Substance Use Topics Alcohol use: No Drug use: No ROS: Gen: Negative Eyes: Negative ENT: Negative CV: Negative Resp: Negative GI: Negative : Dysuria, urinary frequency Musc: R ankle pain, R hip pain Skin: Negative Psych/Neuro: Seizure, anxiety Endo: Negative Heme/Lymph: Negative Allerg/Imm: Negative PE: Vitals: Blood pressure 130/80, pulse 72, temperature 37 C (98.6 F), tempera ture source Oral, resp. rate 18, height 5' 1" (1.549 m), weight 182 lb (82.6 kg) , SpO2 96 %. General: no acute distress and alert, obese Eyes: PERRL and EOMI ENT: pharynx normal, no thyromegaly Cardiovascular: Heart regular, rate, rhythm, no murmurs; no edema Respiratory: clear to auscultation, no respiratory distress GI: abd soft, non-tender, non-distended, +BS, no HSM Musc: no spinal or paraspinal TTP, no joint effusions, RLE is in a brace Skin: intact and warm, dry Neuro: alert, oriented Psych: cooperative and mood/affect normal Heme / Lymph / Imm: no lymphadenopathy Chart Review (Labs / Radiology): CBC, BMP from 06/2019 was unremarkable DEXA from 09/2017 shows osteoporosis of bilateral femoral neck Assessment / Plan: John Nieto is a 64 year old female presents to clinic today for: Osteoporosis without current pathological fracture, unspecified osteoporosis typ e (primary encounter diagnosis) Comment: Last DEXA done showed osteoporosis of femoral neck bilaterally, patient doesn't remember if she had tried oral bisphosphonates or not. Patient and hus band hesitant to start any therapy without first confirming the diagnosis of ost eoporosis Plan: - repeat DEXA AXIAL (HIP AND SPINE) - check VITAMIN D, 25-OH, if low c/w repletion - after DEXA reaffirms diagnosis of osteoporosis, consider referral for IV bisph osphonates as patient has severe GERD requiring high dose PPI + scheduled pepcid and will not tolerate PO Dysuria Chronic interstitial cystitis Comment: Symptoms consistent with baseline dysuria, doesn't really endorse burns e but patient wishes to be checked. Previous Urine culture showed klebsiella, d ue to the numerous abx allergies patient has, will use the 2nd gen cephalosporin that worked for the patient last time (cefuroxime) if positive for UTI Plan: - URINALYSIS Chronic pain of right ankle Comment: Had been followed by ortho in the past for various joint complaints, we aring brace on RLE. Would benefit from reestablishing with ortho Plan: - CONSULT/REFERRAL ORTHOPAEDIC SURGERY Health maintenance - flu mbtgxpi43/28/19 -shingrix due, first shot today - allergic to Tdap - Colonoscopydone, 08/2016 Dr. 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 [place], [place] [phone] 08/21/2019 Office Visit Internal Medicine Zoila Rodas AGNP [address] [place] [phone] 09/06/2019 Office Visit Nephrology Beth Marquez MD [address] [place] [phone] 09/07/2019 Office Visit Psychiatry Kashif Cee MD [address] [place] [phone] 09/14/2019 Office Visit Neurology Eleno Mcnamara MD [address] [place] [phone] 09/15/2019 Office Visit Obstetrics & Gyneco logy Sukh Harris MD [address] [place] [address] [id number] [place], [place] [id number] 11/23/2019 Office Visit Pain Medicine Dieter Zhou MD [address] [place] [address] [id number] [place], [place] [phone] 01/03/2020 Office Visit Pulmonary Disease Date/Time Name Type Priority Associated Diag noses 07/26/2019 4:25 PM [employer] VITAMIN D, 25-OH LAB Routine Osteoporosis without current pathological fracture, unspecified osteoporosis type Order Schedule Name Type Priority Associated Diag noses Expected: 07/26/2019, Expires: 1 DEXA AXIAL (HIP AND IMAGING Routine Osteoporos is without SPINE) current pathological fracture, unspecified osteoporosis type Expected: 07/26/2019, Expires: 1 VITAMIN D, 25-OH LAB Routine Osteoporosis without current pathological fracture, unspecified osteoporosis type Health Maintenance Due Date Last Done Comments [...] Procedure Name Priority Date/Time Associated Diag nosis VARICELLA-ZOSTER VACCINE, Routine 07/26/2019 Need for shingles vaccine (SHINGRIX) 50 MCG/0.5 ML, 3:58 PM [employer] IM documented in this encounter Results * URINALYSIS (07/26/2019 4:25 PM [employer]) APPEARANCE Cloudy (A) Clear [facility] COLOR Yellow Yellow [facility] PH 7.0 4.8 - 8.0 [facility] SP GRAVITY 1.013 1.003 - 1.030 [facility] GLU U QUAL Normal Normal [facility] BLOOD 1+ (A) Negative [facility] KETONES Negative Negative [facility] PROTEIN Negative Negative [facility] UROBILIN Normal Normal [facility] BILIRUBIN Negative Negative [facility] NITRITE Negative Negative [facility] LEUK MICHAEL 500/uL (A) Negative [facility] RBC/HPF 1 0 - 3 HPF [facility] WBC/HPF 27 (H) 0 - 5 HPF [facility] BACTERIA Many (A) Negative [facility] MUCOUS Slight (A) Negative LPF [facility] SQ EPITH 19 (H) <=2 HPF [facility] Specimen Urine - URINE, CLEAN CATCH Performing Organization Address City/State/Zipcode Ph one Number [facility] CLIA: [id number], [address] [place] [address] [facility] documented in this encounter Visit Diagnoses Diagnosis Osteoporosis without current pathologic al fracture, unspecified osteoporosis type - Primary Dysuria Need for shingles vaccine Need for prophylactic vaccination and i noculation against varicella Chronic pain of right ankle documented in this encounter Insurance Type Payer Benefit Subscriber ID Effective Phone Address Plan / Dates Group [facility] [id number] 2019-P [address] [facility] [id number] [place] [address] documented as of this encounter
--- OUTSIDE RECORDS SUMMARY | 2019-11-09 10:06 | XMS REPORT | Summary of Care ---
Author Author [facility] - Health Organization [facility] - Health Address Unknown Phone Unavailable Care Team Providers Care Licensed Practical Nurse Clinic Nurse Name Role Phone Fabien Fernandes MD Unavailable Marvin Oconnor MD PCP Cady Team 25 Unavailable Reason for Visit * Reason Comments New Patient * (Routine) Referred By Contact Referred To Contact Status Reason Specialty Diagnoses / Procedures Mauricio Yip MD [address] [place] [id number] New Request Cardiology Diagnoses Palpitations P rocedures CONSULT CARDIAC EP/[facility]M [facility] Encounter Details Care Team Description Date Type Department Boom Montana MD [address] [place] [phone] Palpitations (Primary Dx) 07/20/2019 Office Visit [facility] [address] [phone] Allergies Comments Active Allergy Reactions Severity Noted Date Azithromycin Itching 01/07/2019 Ciprofloxacin Rash 01/27/2018 Clindamycin Other - See Medium 10/05/2016 comments, Itching Clonazepam Itching, Medium 11/23/2017 Rash, Swelling All steroids-muscle weakness Corticosteroids Other - See 01/20/2016 (Glucocorticoids) comments Iodine Rash 10/05/2016 Lincomycin Rash Medium 09/15/2017 Nitrofurantoin Rash 01/27/2018 Other [place]-3s Anaphylaxis 01/27/2018 States it would be fatal Penicillins Other - See High 01/20/2016 comments, Shortness of Breath Shellfish Derived Other - See 03/18/2019 comments BActrim Rash Sulfamethizole Rash 07/05/2019 New string of tetanus- went to ER , medication for throat closing up Tetanus Vaccines And Swelling High 6 Toxoid documented as of this encounter (statuses as of 07/20/2019) Medications End Date Status Medication Sig Dispensed [...] bedtime. 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 01/12/2019 Overview: Added automatically from request for josé luis silvestre [id number] Obesity (BMI 30-39.9) 12/16/2018 Recurrent UTI 05/17/2018 [...] as of this encounter (statuses as of 07/20/2019) Resolved Problems Problem Noted Date Resolved Date Spondylosis of lumbar region without myelopathy or radiculo johanna 01/12/2019 01/16/2019 Overview: Added automatically from request for josé luis silvestre [id number] documented as of this encounter (statuses as of 07/20/2019) Immunizations Name Administration Dates Next Due Influenza [...] Signs Reading Time Taken Comments Vital Sign 138/90 07/20/2019 11:15 AM MIRROR SPECIALIST Blood Pressure 91 07/20/2019 11:15 AM MIRROR SPECIALIST Pulse - - Temperature - - Respiratory Rate 94% 07/20/2019 11:15 AM MIRROR SPECIALIST Oxygen Saturation - - Inhaled Oxygen Concentration 81.6 kg (180 lb) 07/20/2019 11:15 AM MIRROR SPECIALIST Weight 154.9 cm (5' 1") 07/20/2019 11:15 AM MIRROR SPECIALIST Height 34.01 07/20/2019 11:15 AM MIRROR SPECIALIST Body Mass Index documented in this encounter Progress Notes * Boom Montana MD - 07/20/2019 11:20 AM MIRROR SPECIALIST Card[facility] Note Reason for Evaluation / Chief Complaint: Arrhythmia, palpitations Referring Provider: Dr. Yip HPI: John Nieto is a 64 year old female who has been diagnosed as having pseu do seizures, some "arrhythmia" states that she feels palpitations, chest pain an d has a seizure, she some times passes out during the seizure, no loss of bowel or bladder control, states that she had a heart doctor who wanted to do a proced ure, during her entire visit, her was comforting her and she appeared di stressed and frustrated that no doctor helps her, complains of dyspnea, syncope, chest pain, had an EKG done in clinic that was grossly normal, according to Dr. Portillo's note a cath and echo was normal, a holter done did not show any signi ficant arrhythmias. 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 Past Medical History: Diagnosis Date Depression Frequent falls Hyperlipidemia Hypertension IBS (irritable bowel syndrome) Low back pain Osteoporosis b/l hip Seizure (nonepileptic psychogenic) Social History Socioeconomic History Marital status: Spouse name: Truong Nieto Number of children: Not on file Years of education: Not on file Highest education level: Not on file Occupational History Occupation: Unemployed Social Needs Financial resource strain: Not hard at all Food insecurity: Worry: Never true Inability: Never true Transportation needs: Medical: No Non-medical: No Tobacco Use Smoking status: Never Smoker Smokeless tobacco: Never Used Substance and Sexual Activity Alcohol use: No Drug use: No Sexual activity: Never Partners: Male control/protection: Surgical Lifestyle Physical activity: Days per week: Not on file Minutes per session: Not on file Stress: Not on file Relationships Social connections: Talks on phone: Not on file Gets together: Not on file Attends taoist service: Not on file Active member of club or organization: Not on file Attends meetings of clubs or organizations: Not on file Relationship status: Not on file Intimate partner violence: Fear of current or ex partner: Not on file Emotionally abused: Not on file Physically abused: Not on file Forced sexual activity: Not on file Other Topics Concern Not on file Social History Narrative Not on file Family History Problem Relation Age of Onset Heart Mother Hypertension Mother Diabetes Father Hypertension Father Allergies Allergen Reactions Pcn [Penicillins] Other - See comments and Shortness of Breath States it would be fatal Tetanus Vaccines And Toxoid Swelling New string of tetanus- went to ER , medication for throat closing up Clindamycin Other - See comments and Itching Clonazepam Itching, Rash and Swelling Lincomycin Rash Azithromycin Itching Ciprofloxacin Rash Corticosteroids (Glucocorticoids) Other - See comments All steroids-muscle weakness Iodine Rash Nitrofurantoin Rash Other [place]-3s Anaphylaxis Shellfish Derived Other - See comments Sulfamethizole Rash BActrim Rash Current Outpatient Medications Medication Sig Dispense Refill gabapentin 400 mg capsule TAKE 1 CAPSULE BY MOUTH THREE TIMES A DAY 90 capsu le 2 carBAMazepine 200 mg 12 hr tablet SERTraline 25 mg tablet Take one tablet by mouth daily 60 tablet 1 ketorolac 10 mg tablet Take 1 tablet by mouth every 6 (six) hours as needed for Pain (scale 4-6) or Pain (scale 7-10). 10 tablet 0 LISINOPRIL 5 mg tablet TAKE 1 TABLET BY MOUTH EVERY DAY 30 tablet 1 triamcinolone 55 mcg nasal inhaler Use 1 [place] in each nostril 2 (two) times daily. 1 Bottle 1 amitriptyline 10 mg tablet Take 10 mg by mouth at bedtime. hydroCHLOROthiazide 25 mg tablet Take 1 tablet by mouth daily. 90 tablet 3 famotidine 20 mg tablet Take 20 [...] tablet Take 0.5 mg by mouth daily. No current facility-administered medications for this visit. Review of Systems: General: denies complaint Eyes: denies complaint Ears/Nose/Mouth/Throat: denies complaint Cardiovascular: per HPI Musculoskeletal: right foot fracture Skin: denies complaint Neurologic: "pseudo seizures" Psychiatric: stress reactions Endocrine: denies complaint Hematologic: denies complaint Allergy/Immunology: denies complaint Physical Exam: Vitals: Vitals: 07/20/19 1115 Weight: 180 lb (81.6 kg) Height: 5' 1" (1.549 m) Appearance: Well developed and well nourished female in no acute distress. Eyes: No icterus Ears/Nose/Mouth/Throat: Normal with moist mucous membranes. Neck: No thyroidmegaly, no lymphadenopathy, restricted range of motion. Cardiovascular: regular rate and regular rhythm; no rubs or gallops; no murmur. Respiratory: clear to auscultation bilateral Extremities: Normal,right foot in a support Musculoskeletal: restricted range of motion, and ambulates with assistance. Neurologic: Alert and oriented x 4; no gross abnormalities. LABS / DATA: CBC WBC (10*3/L) Date Value 07/05/2019 5.02 RBC (10*6/L) Date Value 07/05/2019 4.40 PLT (10*3/L) Date Value 07/05/2019 151 (L) HGB (g/dL) Date Value 07/05/2019 12.5 HCT (%) Date Value 07/05/2019 37.5 BMP NA (mmol/L) Date Value 07/05/2019 140 K (mmol/L) Date Value 07/05/2019 3.2 (L) CALCIUM (mg/dL) Date Value 07/05/2019 9.0 CL (mmol/L) Date Value 07/05/2019 104 BUN (mg/dL) Date Value 07/05/2019 15 CREATININE (mg/dL) Date Value 07/05/2019 0.61 GLUCOSE (mg/dL) Date Value 07/05/2019 92 CO2 TOTAL (mmol/L) Date Value 07/05/2019 26 Hepatic Function Panel ALBUMIN (g/dL) Date Value 07/02/2019 4.3 T PROTEIN (g/dL) Date Value 07/02/2019 6.7 TOTAL BILI (mg/dL) Date Value 07/02/2019 0.5 BILI UNCON (mg/dL) Date Value 06/02/2019 0.2 BILI CONJ (mg/dL) Date Value 06/02/2019 0.0 ALT(SGPT) (U/L) Date Value 03/27/2019 37 ALTv (U/L) Date Value 07/02/2019 31 AST(SGOT) (U/L) Date Value 07/02/2019 30 ALK PHOS (U/L) Date Value 07/02/2019 74 PROTIME PATIENT (Seconds) Date Value 03/18/2019 11.4 Impression: 64 year old with palpitations, randomly, negative holter, possible p seudo seizures Recommendation(s): 1. WE discussed the symptoms with her and in detail 2. Based on the negative cardiac work up and continued symptoms of palpitations, will recommend an ILR. 3. ER warnings Thank you for allowing us to participate in the care of your patient. Please fe el free to contact us for any questions or if we can be of further assistance. Boom Montana MD 07/20/2019 11:27 AM OR SPECIALIST * Tequila Mata - 07/20/2019 11:20 AM MIRROR SPECIALIST 64 year old female has been identified by and name. Previous/Current Encounter Diagnosis: No diagnosis found. 12 Lead EKG was performed as ordered. The patient tolerated the procedure well. Dr montana was notified and provided with a copy of the EKG for review. OR SPECIALIST * Tequila Mata - 07/20/2019 11:20 AM MIRROR SPECIALIST John Nieto is a 64 year old female seen for a follow up visit Appearance: healthy,alert,cooperative. Medications and allergies reviewed with patient by JOSE DAVID. OR SPECIALIST documented in this encounter Plan of Treatment Care Team Description Date Type Specialty James Palumbo MD [address] [facility] [place], [place] [id number] Beth Marquez MD [address] [place] [phone] 07/21/2019 Office Visit Psychiatry Marvin Oconnor MD [address] [place] [phone] 08/21/2019 Office Visit Internal Medicine Zoila Rodas AGNP [address] [place] [phone] 09/06/2019 Office Visit Nephrology Kashif Cee MD [address] [place] [phone] 09/14/2019 Office Visit Neurology Eleno Mcnamara MD [address] [place] [phone] 09/15/2019 Office Visit Obstetrics & Gyneco Sukh Rocha MD [address] [place] [address] [id number] [place], [place] [phone] 11/23/2019 Office Visit Pain Medicine Dieter Zhou MD [address] [place] [address] [id number] [place], [place] [phone] 01/03/2020 Office Visit Pulmonary Disease Order Schedule Name Type Priority Associated Diag noses Ordered: 07/20/2019 EKG-12 LEAD ROUTINE HEART STATION Routine Palpitatio ns Health Maintenance Due Date Last Done Comments [...] filedocumented in this encounter Visit Diagnoses Diagnosis Palpitations - Primary documented in this encounter Insurance Type Payer Benefit Subscriber ID Effective Phone Address Plan / Dates Group [facility] [id number] 2019-P [address] [facility] [id number] [place] [address] documented as of this encounter
--- OUTSIDE RECORDS SUMMARY | 2019-11-09 10:06 | XMS REPORT | Summary of Care ---
Author Author [facility] - Health Organization [facility] - Health Address Unknown Phone Unavailable Care Team Providers Care Dental Ceramist Name Role Phone Fabien Fernandes MD Unavailable Marvin Oconnor MD PCP Ulysses Lazar 25 Unavailable Reason for Visit * Reason Comments Lab Results Encounter Details Care Team Description Date Type Department Marvin Oconnor MD [address] [place] [address] Lab Results 07/31/2019 Telephone [facility] [address] [place] [phone] Allergies Comments Active Allergy Reactions Severity Noted Date Azithromycin Itching 01/07/2019 Ciprofloxacin Rash 01/27/2018 Clindamycin Other - See Medium 10/05/2016 comments, Itching Clonazepam Itching, Medium 11/23/2017 Rash, Swelling All steroids-muscle weakness Corticosteroids Other - See 01/20/2016 (Glucocorticoids) comments Iodine Rash 10/05/2016 Lincomycin Rash Medium 09/15/2017 Nitrofurantoin Rash 01/27/2018 Other [place]-3s Anaphylaxis 01/27/2018 States it would be fatal Penicillins Other - See High 01/20/2016 comments, Shortness of Breath Shellfish Derived Other - See 03/18/2019 comments BActrim Rash Sulfamethizole Rash 07/05/2019 New string of tetanus- went to ER , medication for throat closing up Tetanus Vaccines And Swelling High 6 Toxoid documented as of this encounter (statuses as of 07/31/2019) Medications End Date Status Medication Sig Dispensed [...] Dysuria (two) times daily for 7 days. Active Cholecalciferol, Vitamin Take 1 tablet 90 tablet 3 D3, 400 unit by mouth 0 ChewIndications: Vitamin daily. 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 01/12/2019 Overview: Added automatically from request for josé luis penaery [id number] Obesity (BMI 30-39.9) 12/16/2018 Recurrent UTI 05/17/2018 [...] as of this encounter (statuses as of 07/31/2019) Resolved Problems Problem Noted Date Resolved Date Spondylosis of lumbar region without myelopathy or radiculo johanna 01/12/2019 01/16/2019 Overview: Added automatically from request for ordonez konrad [id number] documented as of this encounter (statuses as of 07/31/2019) Immunizations Name Administration Dates Next Due Influenza [...] Treatment Care Team Description Date Type Specialty DellaLaurie fraizer LPC [address] [place], [place] [id number] 08/03/2019 Office Visit Psychiatry Merrill Parks MD [address] [place], [place] [phone] 08/07/2019 Office Visit Orthopedic Surgery Marvin Oconnor MD [address] [place], [place] [address] 08/21/2019 Office Visit Internal Medicine oZila Rodas AGNP [address] [place] [address] [phone] 09/06/2019 Office Visit Nephrology Beth Marquez MD [address] [place] [phone] 09/07/2019 Office Visit Psychiatry Kashif Cee MD [address] [place] [phone] 09/14/2019 Office Visit Neurology Eleno Mcnamara MD [address] [place] [phone] 09/15/2019 Office Visit Obstetrics & Gyneco Sukh Rocha MD [address] [place] [address] [id number] [place], [place] 078395 11/23/2019 Office Visit Pain Medicine Dieter Zhou MD [address] [place] [address] [id number] [place], [place] [phone] 01/03/2020 Office Visit Pulmonary Disease Health Maintenance [...] filedocumented in this encounter Visit Diagnoses Diagnosis Vitamin D insufficiency - Primary Unspecified vitamin D deficiency documented in this encounter Insurance Type Payer Benefit Subscriber ID Effective Phone Address Plan / Dates Group [facility] [id number] 2019-P [address] [facility] [id number] [place] [address] documented as of this encounter
--- OUTSIDE RECORDS SUMMARY | 2019-11-09 10:06 | XMS REPORT | Summary of Care ---
Author Author [facility] - Health Organization [facility] - Health Address Unknown Phone Unavailable Care Team Providers Care Product Development Manager Name Role Phone Fabien Fernandes MD Unavailable Marvin Oconnor MD PCP Ulysses Lazar 25 Unavailable Reason for Referral * (Routine) Referred By Contact Referred To Contact Status Reason Specialty Diagnoses / Procedures [facility]connor MD [address] [facility] [address] [place] [phone] New Request Orthopedic Diagnoses Surgery Chronic pain of right ankle P rocedures CONSULT/REFERRAL ORTHOPAEDIC SURGERY * Radiology Services (Routine) Referred By Contact Referred To Contact Status Reason Specialty Diagnoses / Procedures Marvin Oconnor MD [address] [facility] [address] [place] [phone] New Request Diagnostic Diagnoses Radiology Osteoporosis without current pathological fracture, unspecified osteoporosis type P rocedures DEXA AXIAL (HIP AND SPINE) Reason for Visit * Reason Comments Bladder Pain DYSURIA Encounter Details Care Team Description Date Type Department Marvin Oconnor MD [address] [facility] [address] [place] [phone] Osteoporosis without current pathologica l fracture, unspecified osteoporosis type (Primary Dx); Dysuria; Need for shingles vaccine; Chronic pain of right ankle 07/26/2019 Office Visit [facility] [address] [place] [phone] Allergies Comments Active Allergy Reactions Severity Noted Date Azithromycin Itching 01/07/2019 Ciprofloxacin Rash 01/27/2018 Clindamycin Other - See Medium 10/05/2016 comments, Itching Clonazepam Itching, Medium 11/23/2017 Rash, Swelling All steroids-muscle weakness Corticosteroids Other - See 01/20/2016 (Glucocorticoids) comments Iodine Rash 10/05/2016 Lincomycin Rash Medium 09/15/2017 Nitrofurantoin Rash 01/27/2018 Other [place]-3s Anaphylaxis 01/27/2018 States it would be fatal [...] 07/26/2019 Discontinued triamcinolone 55 mcg Use 1 [place] 1 Bottle 1 04/03 nasal inhalerIndications: in [...] Added automatically from request for ordonez rgery [id number] 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 01/12/2019 Overview: Added automatically from request for ordonez rgery [id number] Obesity (BMI 30-39.9) 12/16/2018 Recurrent UTI 05/17/2018 [...] automatically from request for josé luis silvestre [id number] documented as of this encounter (statuses as [...] Comments Vital Sign 144/91 07/26/2019 3:13 PM SLITTING AND SHIPPING SUPERVISOR Blood Pressure 72 07/26/2019 3:13 PM SLITTING AND SHIPPING SUPERVISOR Pulse 37 C (98.6 F) 07/26/2019 3:13 PM SLITTING AND SHIPPING SUPERVISOR Temperature 18 07/26/2019 3:13 PM SLITTING AND SHIPPING SUPERVISOR Respiratory Rate 96% 07/26/2019 3:13 PM SLITTING AND SHIPPING SUPERVISOR RA Oxygen Saturation - - Inhaled Oxygen Concentration 82.6 kg (182 lb) 07/26/2019 3:13 PM SLITTING AND SHIPPING SUPERVISOR Weight 154.9 cm (5' 1") 07/26/2019 3:13 PM SLITTING AND SHIPPING SUPERVISOR Height 34.39 07/26/2019 3:13 PM SLITTING AND SHIPPING SUPERVISOR Body Mass Index documented in this encounter Progress Notes * Marvin Oconnor MD - 07/26/2019 3:30 PM SLITTING AND SHIPPING SUPERVISOR [facility] Clinic Note CC: Dysuria HPI: John [...] pseudoseizur es. Saw neurologist on 07/24/19 at [facility] for [facility]raines (possibly to reduce the number [...] Right 01/23/2019 Surgeon: Sukh Harris MD; Location: [facility] RADIOFREQUENCY THERMOCOAGULATION N/A 02/15/2019 Surgeon: Sukh Harris MD; Location: [facility] TONSILLECTOMY Family Hx: Family History Problem Relation [...] CONSULT/REFERRAL ORTHOPAEDIC SURGERY Health maintenance - flu /28/19 -shingrix due, first shot today - allergic to Tdap - Colonoscopydone, 08/2016 Dr. Kianna Hoyt, found hemorrhoids and polyps, plan to repeat in 5 years - pap smear done 08/02/18 - mammogram done 08/08/18 Follow-up: 1 month as scheduled Marvin Oconnor MD TING AND SHIPPING SUPERVISOR documented in this encounter Plan of Treatment Care Team Description Date Type Specialty Dieter Zhou MD [id number] [place], [place] [address] Test, Vtc Pulmonary Function 07/28/2019 Gemologist Pulmonary Function Visit Technologist Laurie Hull LPC [address] [place], [place] [phone] 08/03/2019 Office Visit Psychiatry Marvin Oconnor MD [address] [place], [place] [phone] 08/21/2019 Office Visit Internal Medicine Zoila Rodas AGNP [address] [place] [address] [phone] 09/06/2019 Office Visit Nephrology Beth Marquez MD [address] [place] [phone] 09/07/2019 Office Visit Psychiatry Kashif Cee MD [address] [place] [phone] 09/14/2019 Office Visit Neurology Eleno Mcnamara MD [address] [place] [address] [phone] 09/15/2019 Office Visit Obstetrics & Gyneco logy Sukh Harris MD [address] [place] [address] [id number] [place], [place] [address] 11/23/2019 Office Visit Pain Medicine Dieter Zhou MD [address] [place] [address] [id number] [place], [place] [phone] 01/03/2020 Office Visit Pulmonary Disease Date/Time Name Type Priority Associated Diag noses 07/26/2019 4:25 PM SLITTING AND SHIPPING SUPERVISOR VITAMIN D, 25-OH LAB Routine Osteoporosis without [...] vaccine (SHINGRIX) 50 MCG/0.5 ML, 3:58 PM SLITTING AND SHIPPING SUPERVISOR IM documented in this encounter Results * URINALYSIS (07/26/2019 4:25 PM SLITTING AND SHIPPING SUPERVISOR) APPEARANCE Cloudy (A) Clear [facility] [...] Ph one Number [facility] CLIA: [id number], [address] [place] [address] [facility] documented in this encounter Visit Diagnoses Diagnosis Osteoporosis without current pathologic al fracture, unspecified osteoporosis type - Primary Dysuria Need for shingles vaccine Need for prophylactic vaccination and i noculation against varicella Chronic pain of right ankle documented in this encounter Insurance Type Payer Benefit Subscriber ID Effective Phone Address Plan / Dates Group [facility] [id number] 2019-P [address] [facility] [id number] [place] [address] documented as of this encounter
--- OUTSIDE RECORDS SUMMARY | 2019-11-09 10:06 | XMS REPORT | Clinical Summary ---
Author Author [facility] [[email or web address]] - Health Organization [facility] [[email or web address]] - Health Address Unknown Phone Unavailable Care Team Providers Care Golf Tournament Consultant Name Role Phone Fabien Fernandes MD [...] Rash Medium 09/15/2017 Nitrofurantoin Rash 01/27/2018 Other Hargill-3s Anaphylaxis 01/27/2018 States it would be fatal [...] mouth 0 ChewIndications: Vitamin daily. D insufficiency 07/10/2019 sulfamethoxazole-trimetho Take 1 tablet 14 tablet 0 prim 800-160 mg per by mouth 2 0 tabletIndications: (two) times Psychogenic nonepileptic daily for 7 seizure, Urinary tract days. infection without hematuria, site unspecified 08/03/2019 cefUROXime 250 mg Take 1 tablet 14 tablet 0 tabletIndications: by mouth 2 0 Dysuria (two) times daily for 7 days. 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 01/12/2019 Overview: Added automatically from request for ordonez rgery [id number] Obesity (BMI 30-39.9) 12/16/2018 Recurrent UTI 05/17/2018 [...] automatically from request for josé luis silvestre [id number] Encounters Care Team Description Date Type Specialty Boom Santiago MD Assessment; Seizures; Procedure 07/31/2019 Telephone Cardiology Marvin Oconnor MD Lab Results 07/31/2019 Telephone Internal Medicine Dieter Zhou MD Test, Vtc Pulmonary Function Dyspnea on exertion 07/28/2019 Kitchen Worker Pulmonary Function Visit Technologist Doctor Unassigned, Garten 07/28/2019 Orders Only Marvin Oconnor MD Results 07/27/2019 Telephone Internal [place] P[place]-Lab Osteoporosis without current pathologica l fracture, unspecified osteoporosis type; Dysuria 07/26/2019 Kitchen Worker Phlebotomy Visit Marvin Oconnor MD Osteoporosis without current pathologica l fracture, unspecified osteoporosis type (Primary Dx); Dysuria; Need for shingles vaccine; Chronic pain of right ankle 07/26/2019 Office Visit Internal Medicine Boom Santiago MD Palpitations (Primary Dx) 07/20/2019 Office Visit Cardiology Doctor Unassigned, Garten 07/17/2019 Orders Only Marvin Oconnor MD Results 07/14/2019 Telephone Internal [place] Pcp-Lab Dysuria 07/13/2019 Kitchen Worker Phlebotomy Visit Marvin Oconnor MD Dysuria (Primary [...] Fernandes MD Pcp-Lab Urinary frequency; Dysuria 06/30/2019 Kitchen Worker Phlebotomy Visit Unknown, Attending Yudy Fernandes MD Castillo, Jorge, MD Urinary frequency (Primary Dx); Dysuria; Convulsions, unspecified convulsion type 06/30/2019 Office Visit Internal Medicine Goldie Culver RN 06/29/2019 Abstract [facility] Preventive Medicine Doctor Unassigned, Garten 06/22/2019 Orders Only Eleno Mcnamara MD Notification (of medication filled) 06/19/2019 Telephone Obstetrics & Gyneco logy Eleno Mcnamara MD Recurrent UTI (urinary tract infection) (Primary Dx) 06/16/2019 Office Visit Obstetrics & Gyneco rowenay Ramiro Wright FNP Acute cystitis with hematuria (Primary D x) 06/02/2019 Emergency Emergency Medicine Eleno Mcnamara MD Assessment 06/02/2019 Telephone Obstetrics & Gyneco logy Ciara Merrill FNP Notification 06/01/2019 Telephone Urology Isak Varner FNP Lab Results 06/01/2019 Telephone Family Medicine Letciia Handy MD Surgery Clearance 05/29/2019 Telephone Internal Medicine Isak Varner FNP Results 05/26/2019 Telephone Family Medicine Unknown, Attending Doug Egan FNP Urinary tract infection without hematuri a, site unspecified (Primary Dx); Yeast infection; Cough; Seizure 05/24/2019 Urgent Care Family [place] Assessment; FLU; URINARY TRACT INFECTION ; Bladder Pain 05/24/2019 Telephone Internal Medicine Mauricio Yip MD Results 05/23/2019 Telephone Cardiology Leticia Handy MD Medical Records ([facility] [place] ) 05/17/2019 Telephone Internal Medicine Ciara Merrill FNP 05/15/2019 Hospital Radiology Encounter Sukh Harris MD Refill Request 05/15/2019 Telephone Pain Medicine Ciara Merrill FNP Xray Results 05/15/2019 Telephone Urology Mauricio Yip MD Surgery Clearance 05/12/2019 Telephone Cardiology Doctor Unassigned, Garten 05/12/2019 Orders Only Doctor Unassigned, Garten 05/08/2019 Orders Only Ciara Merrill Trisha, HOSPITALITY INTERN Recurrent UTI (Primary Dx); Right flank pain 05/04/2019 Office Visit Urology from Last 3 Months Immunizations Name Administration Dates Next Due Influenza Virus Vaccine 04/21/2018, 03/21/2017 Influenza Virus Vaccine 04/17/2019 Quad .5 mL IM 6+ MO Influenza Virus Vaccine 04/19/2018 Quad ID 18-64 YRS Zoster Vaccine 07/26/2019 Recombinant Family History Medical History Relation Name [...] Comments Vital Sign 144/91 07/26/2019 3:13 PM CONDOMINIUM PROPERTY MANAGER Blood Pressure 72 07/26/2019 3:13 PM CONDOMINIUM PROPERTY MANAGER Pulse 37 C (98.6 F) 07/26/2019 3:13 PM CONDOMINIUM PROPERTY MANAGER Temperature 18 07/26/2019 3:13 PM CONDOMINIUM PROPERTY MANAGER Respiratory Rate 96% 07/26/2019 3:13 PM CONDOMINIUM PROPERTY MANAGER RA Oxygen Saturation - - Inhaled Oxygen Concentration 82.6 kg (182 lb) 07/26/2019 3:13 PM CONDOMINIUM PROPERTY MANAGER Weight 154.9 cm (5' 1") 07/26/2019 3:13 PM CONDOMINIUM PROPERTY MANAGER Height 34.39 07/26/2019 3:13 PM CONDOMINIUM PROPERTY MANAGER Body Mass Index Plan of Treatment Care Team Description Date Type Specialty Merrill Parks MD [address] [place] [address] [phone] 08/07/2019 Office Visit Orthopedic Surgery Marvin Oconnor MD [address] [place] [address] 08/21/2019 Office Visit Internal Medicine Zoila Rodas AGNP [address] [place] [address] [phone] 09/06/2019 Office Visit Nephrology Kashif Cee MD [address] [place] [address]. [place] [address] 09/14/2019 Office Visit Neurology Eleno Mcnamara MD [address] [place] [address] [phone] 09/15/2019 Office Visit Obstetrics & Gyneco logy Sukh Harris MD [address] [place] [address] [id number] [place], [place] [phone] 11/23/2019 Office Visit Pain Medicine Dieter Zhou MD [address] [place] [address] [id number] [place], [place] [phone] 01/03/2020 Office Visit Pulmonary Disease Health Maintenance [...] Procedure Name Priority Date/Time Associated Diag nosis PULMONARY FUNCTION TEST Routine 07/28/2019 (RESULTS) 10:43 AM CONDOMINIUM PROPERTY MANAGER EXTERNAL PROVIDER RECORDS Routine 07/28/2019 12:01 AM CONDOMINIUM PROPERTY MANAGER EXTERNAL PROVIDER RECORDS Routine 07/28/2019 12:01 AM CONDOMINIUM PROPERTY MANAGER URINALYSIS Routine 07/26/2019 Dysuria 4:25 PM CONDOMINIUM PROPERTY MANAGER VITAMIN D, 25-OH Routine 07/26/2019 Osteoporosis without 4:25 PM CONDOMINIUM PROPERTY MANAGER current pathological fracture, unspecified osteoporosis type VARICELLA-ZOSTER VACCINE, Routine 07/26/2019 Need for shingles vaccine (SHINGRIX) 50 MCG/0.5 ML, 3:58 PM CONDOMINIUM PROPERTY MANAGER IM EKG-12 LEAD Routine 07/20/2019 11:23 AM CONDOMINIUM PROPERTY MANAGER EXTERNAL PROVIDER RECORDS Routine 07/17/2019 12:01 AM CONDOMINIUM PROPERTY MANAGER URINE CULTURE Routine 07/13/2019 Dysuria 4:19 PM CONDOMINIUM PROPERTY MANAGER URINALYSIS Routine 07/13/2019 Dysuria 4:19 PM CONDOMINIUM PROPERTY MANAGER EXTERNAL PROVIDER RECORDS Routine 07/11/2019 12:01 AM CONDOMINIUM PROPERTY MANAGER CBC WITH DIFFERENTIAL STAT 07/05/2019 Rash 1:35 PM CONDOMINIUM PROPERTY MANAGER CBC WITH DIFFERENTIAL STAT 07/05/2019 Rash 1:35 PM CONDOMINIUM PROPERTY MANAGER BASIC METABOLIC PANEL STAT 07/05/2019 Rash (NA, K, CL, CO2, GLUCOSE, 1:35 PM CONDOMINIUM PROPERTY MANAGER BUN, CREATININE, CA) EMERGENCY SERVICES Routine 07/05/2019 AGREEMENTS AND 12:01 AM CONDOMINIUM PROPERTY MANAGER AUTHORIZATIONS EXTRA TUBE URINE CULTURE Routine 07/02/2019 9:54 AM CONDOMINIUM PROPERTY MANAGER URINALYSIS STAT 07/02/2019 Cough 9:54 AM CONDOMINIUM PROPERTY MANAGER XR CHEST 1 VW STAT 07/02/2019 Cough 7:58 AM CONDOMINIUM PROPERTY MANAGER EXTRA TUBE LT. BLUE STAT 07/02/2019 7:40 AM CONDOMINIUM PROPERTY MANAGER CBC WITH DIFFERENTIAL STAT 07/02/2019 Cough 7:40 AM CONDOMINIUM PROPERTY MANAGER COMP. METABOLIC PANEL STAT 07/02/2019 Cough (44089) 7:40 AM CONDOMINIUM PROPERTY MANAGER CBC WITH DIFFERENTIAL Routine 07/02/2019 Cough 7:40 AM CONDOMINIUM PROPERTY MANAGER CONSENT/REFUSAL FOR Routine 07/02/2019 DIAGNOSIS AND TREATMENT 7:08 AM CONDOMINIUM PROPERTY MANAGER HOSPITAL ADMISSION Routine 07/02/2019 12:01 AM CONDOMINIUM PROPERTY MANAGER URINALYSIS JAMES 06/30/2019 Urinary frequen cy 2:37 PM CONDOMINIUM PROPERTY MANAGER Dysuria URINE CULTURE JAMES 06/30/2019 Urinary frequen cy 2:37 PM CONDOMINIUM PROPERTY MANAGER Dysuria EXTERNAL PROVIDER RECORDS Routine 06/22/2019 12:01 AM CONDOMINIUM PROPERTY MANAGER URINE CULTURE Routine 06/16/2019 Recurrent UTI ( urinary 11:12 AM CONDOMINIUM PROPERTY MANAGER tract infection) POCT URINALYSIS Routine 06/16/2019 Recurrent UTI (urinary 11:05 AM CONDOMINIUM PROPERTY MANAGER tract infection) EXTRA TUBE URINE CULTURE STAT 06/02/2019 7:24 PM CONDOMINIUM PROPERTY MANAGER EXTRA TUBE LT. BLUE STAT 06/02/2019 7:24 PM CONDOMINIUM PROPERTY MANAGER CBC WITH DIFFERENTIAL STAT 06/02/2019 Acute cy stitis with 7:24 PM CONDOMINIUM PROPERTY MANAGER hematuria HEPATIC FUNCTION PANEL STAT 06/02/2019 Acute c ystitis with (49772) (ALB,T.PRO,BILI 7:24 PM CONDOMINIUM PROPERTY MANAGER hematuria T,BU/BC,ALT,AST,ALK PHOS) BASIC METABOLIC PANEL STAT 06/02/2019 Acute cy stitis with (NA, K, CL, CO2, GLUCOSE, 7:24 PM CONDOMINIUM PROPERTY MANAGER hematuria BUN, CREATININE, CA) CBC WITH DIFFERENTIAL Routine 06/02/2019 Acute cy stitis with 7:24 PM CONDOMINIUM PROPERTY MANAGER hematuria URINALYSIS STAT 06/02/2019 Acute cystitis with 7:24 PM CONDOMINIUM PROPERTY MANAGER hematuria EMERGENCY SERVICES Routine 06/02/2019 AGREEMENTS AND 12:01 AM CONDOMINIUM PROPERTY MANAGER AUTHORIZATIONS AUTHORIZATION FOR RELEASE Routine 05/30/2019 OF PHI 12:01 AM CONDOMINIUM PROPERTY MANAGER URINE CULTURE Routine 05/24/2019 Urinary tract i nfection 1:15 PM CONDOMINIUM PROPERTY MANAGER without hematuria, site unspecified POCT URINALYSIS STAT 05/24/2019 Urinary tract infection 12:21 PM CONDOMINIUM PROPERTY MANAGER without hematuria, site unspecified CT ABDOMEN PELVIS WO Routine 05/15/2019 Recurrent UTI CONTRAST 8:18 AM CONDOMINIUM PROPERTY MANAGER Right flank pain MEDICAL RELEASE/CLEARANCE Routine 05/12/2019 FORMS 12:01 AM CONDOMINIUM PROPERTY MANAGER REFERRAL- Routine 05/08/2019 REQUEST/RESPONSE 12:01 AM CONDOMINIUM PROPERTY MANAGER from Last 3 Months Results * PULMONARY FUNCTION TEST (RESULTS) (07/28/2019 10:43 AM CONDOMINIUM PROPERTY MANAGER) Specimen Performing Organization Address City/[facility] one Number PFT * EXTERNAL PROVIDER RECORDS (07/28/2019 12:01 AM CONDOMINIUM PROPERTY MANAGER) Only the most recent of 5 results within the time period is included. Specimen Performing Organization Address [facility] one Number HIM * VITAMIN D, 25-OH (07/26/2019 4:25 PM CONDOMINIUM PROPERTY MANAGER) VIT D 25OH 23 (L) 25 - 80 ng/mL [facility] Specimen Blood Narrative Performed At Deficiency: <20 ng/mL [facility] Insufficiency: 20-24 ng/mL SERVICES Optimal: 25-80 ng/mL Performing Organization Address [facility] Ph one Number [facility] CLIA: [id number], [address] [place] [address] [facility] * URINALYSIS (07/26/2019 4:25 PM CONDOMINIUM PROPERTY MANAGER) Only the most recent of 5 results within the time period is included. APPEARANCE Cloudy (A) Clear [facility] [...] SERVICES SQ EPITH 19 (H) <=2 HPF [facility] [[email or web address]] LABORATORY SERVICES Specimen Urine - URINE, CLEAN CATCH Performing Organization Address [facility] Ph one Number [facility] [[email or web address]] LABORATORY SERVICES CLIA: [id number], [address] [place] [address] [facility] * EKG-12 LEAD (07/20/2019 11:23 AM CONDOMINIUM PROPERTY MANAGER) Specimen Performing Organization Address [facility] one Number HST * URINE CULTURE (07/13/2019 4:19 PM CONDOMINIUM PROPERTY MANAGER) Only the most recent of 4 results within the time period is included. URINE CULTURE >100,000 CFU/mL Klebsiella [facility] [[email or web address]] LABOR ATORY pneumoniae SERVICES Specimen Urine - [...] pyelonephritis or systemic disease. Performing Organization Address [facility] one Number [facility] [[email or web address]] LABORATORY SERVICES CLIA: [id number], [address] [place] [address] [facility] * CBC WITH DIFFERENTIAL (07/05/2019 1:35 PM CONDOMINIUM PROPERTY MANAGER) Only the most recent of 3 results within the time period is included. WBC 5.02 4.30 - 11.10 [facility] [[email or web address]] LABORATORY 10*3/L [facility] RBC 4.40 3.93 - 5.25 10*6/L [facility] [[email or web address]] LABO RATORY [facility] HGB 12.5 11.6 - 15.0 g/dL [facility] [[email or web address]] LABORATO RY [facility] HCT 37.5 35.7 - 45.2 % [facility] MCV 85.2 80.6 - 95.5 fL [facility] 28.4 25.9 - 32.8 pg [facility] MCHC 33.3 31.6 - 35.1 g/dL [facility] RDW-SD 42.9 39.0 - 49.9 fL [facility] RDW-CV 13.8 12.0 - 15.5 % [facility] PLT 151 (L) 166 - 358 10*3/L [facility] MPV 10.8 9.5 - 12.9 fL [facility] NRBC/100 WBC 0.0 0.0 - 10.0 /100 WBCs [facility] NRBC x10^3 <0.01 10*3/L [facility] GRAN MAT (NEUT) 64.5 % [facility] % [facility] IMM GRAN % 0.40 % [facility] LYMPH % 25.3 % [facility] MONO % 9.2 % [facility] EOS % 0.2 % [facility] BASO % 0.4 % [facility] GRAN MAT 3.24 1.88 - 7.09 10*3/uL [facility] x10^3(ANC) [facility] IMM GRAN x10^3 <0.03 0.00 - 0.06 10*3/uL [facility] LYMPH x10^3 1.27 (L) 1.32 - 3.29 10*3/uL [facility] MONO x10^3 0.46 0.33 - 0.92 10*3/uL [facility] EOS x10^3 <0.03 (L) 0.03 - 0.39 10*3/uL [facility] BASO x10^3 <0.03 0.01 - 0.07 10*3/uL [facility] [[email or web address]] LABOR ATORY [facility] Specimen Blood - HAND, RIGHT Performing Organization Address City/State/Zipcode Ph one Number [facility] [[email or web address]] LABORATORY CLIA: [id number], [address] [place], [place] [address] [facility] * BASIC METABOLIC PANEL (NA, K, CL, CO2, GLUCOSE, BUN, CREATININE, CA) (07/05/2019 1:35 PM CONDOMINIUM PROPERTY MANAGER) Only the most recent of 2 results within the time period is included. NA 140 135 - 145 mmol/L [facility] K 3.2 (L) 3.5 - 5.0 mmol/L [facility] RY [facility] CL 104 98 - 108 mmol/L [facility] [[email or web address]] LABORATOR Y [facility] CO2 TOTAL 26 23 - 31 mmol/L [facility] [[email or web address]] LABORATORY [facility] AGAP 10 2 - 16 [facility] [[email or web address]] LABORATORY [facility] BUN 15 7 - 23 mg/dL [facility] [[email or web address]] LABORATORY [facility] GLUCOSE 92 70 - 110 mg/dL [facility] [[email or web address]] LABORATORY [facility] CREATININE 0.61 0.50 - 1.04 mg/dL [facility] CALCIUM 9.0 8.6 - 10.6 mg/dL [facility] eGFR 99.1 mL/min/1.73m2 [facility] [[email or web address]] LABORATORY Calculation [facility] Japanese) eGFR 120.1 mL/min/1.73m2 [facility] [[email or web address]] LABORATORY Calculation [facility] ([facility] Japanese) Specimen Blood - HAND, RIGHT Narrative Performed At Association of Glomerular Filtration Rate (GFR) and S taging of Kidney Disease* [facility] [[email or web address]] LABORATORY + + +------ + [facility] | GFR (mL/min/1.73 m2) | With Kidney Damage | W ithout Kidney Damage CAMPUS + + -------+ + [...] abnormalities in imaging tests). Performing Organization Address [facility] one Number [facility] [[email or web address]] LABORATORY CLIA: [id number], [address] [place], [place] [address] [facility] * EMERGENCY SERVICES AGREEMENTS AND AUTHORIZATIONS (07/05/2019 12:01 AM CONDOMINIUM PROPERTY MANAGER) Only the most recent of 2 results within the time period is included. Specimen Performing Organization Address [facility] one Number HIM * EXTRA TUBE URINE CULTURE (07/02/2019 9:54 AM CONDOMINIUM PROPERTY MANAGER) Only the most recent of 2 results within the time period is included. Specimen Urine - URINE, CLEAN CATCH Performing Organization Address [facility] one Number [email or web address] LABORATORY CLIA: [id number], [address] [place], [place] [address] [facility] * Chest 1 View (07/02/2019 7:58 AM CONDOMINIUM PROPERTY MANAGER) Specimen Impressions Performed At No acute cardiopulmonary abnormality PACS/VR/DOSE Narrative Performed At EXAM: XR CHEST 1 VW PACS/VR/DOSE HISTORY: cough COMPARISON: 03/27/2019. FINDINGS: The lungs are clear. No pleural effusio n or pneumothorax is seen. No focal consolidation is seen. The heart is normal in size. No acute osseous abnormality is identif ied. Procedure Note [facility], Radiant Results Inft User - 07/02/2019 9:04 AM CONDOMINIUM PROPERTY MANAGER EXAM: XR CHEST 1 VW HISTORY: cough COMPARISON: 03/27/2019. FINDINGS: The lungs are clear. No pleural effusion or pneumothorax is seen. No focal consolidation is seen. The heart is normal in size. No acute osseous abnormality is identified. IMPRESSION No acute cardiopulmonary abnormality Performing Organization Address [facility] one Number PACS/VR/DOSE * EXTRA TUBE LT. BLUE (07/02/2019 7:40 AM CONDOMINIUM PROPERTY MANAGER) Only the most recent of 2 results within the time period is included. Specimen Blood Performing Organization Address City/State/Zipcode Ph one Number [facility] [[email or web address]] LABORATORY CLIA: [id number], [address] [place], [place] [address] [facility] * COMP. METABOLIC PANEL (42395) (07/02/2019 7:40 AM CONDOMINIUM PROPERTY MANAGER) NA 140 135 - 145 mmol/L [facility] K 3.2 (L) 3.5 - 5.0 mmol/L [facility] RY [facility] CL 101 98 - 108 mmol/L [facility] [[email or web address]] LABORATOR Y [facility] CO2 TOTAL 28 23 - 31 mmol/L [facility] AGAP 11 2 - 16 [facility] BUN 16 7 - 23 mg/dL [facility] GLUCOSE 122 (H) 70 - 110 mg/dL [facility] CREATININE 0.59 0.50 - 1.04 mg/dL [email or web address]] LABORAT ORY [facility] TOTAL BILI 0.5 0.1 - 1.1 mg/dL [facility] [[email or web address]] LABORATOR Y [facility] CALCIUM 8.7 8.6 - 10.6 mg/dL [facility] T PROTEIN 6.7 6.3 - 8.2 g/dL [facility] ALBUMIN 4.3 3.5 - 5.0 g/dL [facility] ALK PHOS 74 34 - 122 U/L [facility] ALTv 31 5 - 35 U/L [facility] AST(SGOT) 30 13 - 40 U/L [facility] eGFR 102.9 mL/min/1.73m2 [facility] Calculation [facility]-[place] (Non-[facility] Japanese) eGFR 124.8 mL/min/1.73m2 [facility] Calculation [facility] ([facility] Japanese) Specimen Blood - VENOUS Narrative Performed At Association of Glomerular Filtration Rate (GFR) and S taging of Kidney Disease* [facility] [[email or web address]] LABORATORY + + +------ + SERVICES-CLEAR QUAN | GFR (mL/min/1.73 m2) | With Kidney Damage | W ithout Kidney Damage CAMPUS + + -------+ + [...] abnormalities in imaging tests). Performing Organization Address [facility] Ph one Number [facility] [[email or web address]] LABORATORY CLIA: [id number], [address] [place] [address] [facility] * CONSENT/REFUSAL FOR DIAGNOSIS AND TREATMENT (07/02/2019 7:08 AM CONDOMINIUM PROPERTY MANAGER) Specimen Performing Organization Address [facility] Ph one Number HIM * HOSPITAL ADMISSION (07/02/2019 12:01 AM CONDOMINIUM PROPERTY MANAGER) Specimen Performing Organization Address [facility] Ph one Number HIM * POCT URINALYSIS W SPECIFIC GRAVITY (06/16/2019 11:05 AM CONDOMINIUM PROPERTY MANAGER) Only the most recent of 2 results [...] ALT, AST, ALK PHOS) (06/02/2019 7:24 PM CONDOMINIUM PROPERTY MANAGER) TOTAL BILI 0.3 0.1 - 1.1 mg/dL [facility] BILI UNCON 0.2 0.1 - 1.1 mg/dL [facility] BILI CONJ 0.0 0.0 - 0.3 mg/dL [facility] T PROTEIN 7.4 6.3 - 8.2 g/dL [facility] ALBUMIN 4.7 3.5 - 5.0 g/dL [facility] ALK PHOS 69 34 - 122 U/L [facility] ALTv 34 5 - 35 U/L [email or web address]ORAT[facility] AST(SGOT) 30 13 - 40 U/L [facility] [[email or web address]] LABORATORY [facility] Specimen Blood - ARM, RIGHT Performing Organization Address City/[facility] [place] Ph one Number [facility] [[email or web address] LABORATORY CLIA: [id number], [address] [address] 98 [facility] * AUTHORIZATION FOR RELEASE OF PHI (05/30/2019 12:01 AM CONDOMINIUM PROPERTY MANAGER) Specimen Performing Organization Address [facility] [place] Ph one Number HIM * CT ABDOMEN PELVIS WO CONTRAST (05/15/2019 8:18 AM CONDOMINIUM PROPERTY MANAGER) Specimen Impressions Performed At No nephrolithiasis or [...] Results Inft User - 05/15/2019 9:04 AM CONDOMINIUM PROPERTY MANAGER EXAM: CT ABDOMEN AND PELVIS WITHOUT CONTRAST [...] with the above report. Performing Organization Address City/State[facility] P[facility]/VR/DOSE * MEDICAL RELEASE/CLEARANCE FORMS (05/12/2019 12:01 AM CONDOMINIUM PROPERTY MANAGER) Specimen Performing Organization Address [facility] Ph one Number HIM * REFERRAL- REQUEST/RESPONSE (05/08/2019 12:01 AM CONDOMINIUM PROPERTY MANAGER) Specimen Performing Organization Address City/State[facility] Number HIM from Last 3 Months Insurance Type Payer Benefit Subscriber ID Effective Phone Address Plan / Dates Group HMO [facility] [id number] 2019-P [address] [facility] [id number] [place] [address] (Home) [place] [address]
--- OUTSIDE RECORDS SUMMARY | 2019-11-09 10:06 | XMS REPORT | Summary of Care ---
Author Author [facility] - Health Organization [facility] - Health Address Unknown Phone Unavailable Care Team Providers Care Web Content Developer Name Role Phone Fabien Fernandes MD Unavailable Marvin Oconnor MD PCP Ulysses Lazar 25 Unavailable Reason for Visit * Reason Comments Results Encounter Details Care Team Description Date Type Department Marvin Oconnor MD [address] [place] [address] Results 07/27/2019 [facility]phone [facility] [address] , [address] [place] [address] Allergies Comments Active Allergy Reactions Severity Noted Date Azithromycin Itching 01/07/2019 Ciprofloxacin Rash 01/27/2018 Clindamycin Other - See Medium 10/05/2016 comments, Itching Clonazepam Itching, Medium 11/23/2017 Rash, Swelling All steroids-muscle weakness Corticosteroids Other - See 01/20/2016 (Glucocorticoids) comments Iodine Rash 10/05/2016 Lincomycin Rash Medium 09/15/2017 Nitrofurantoin Rash 01/27/2018 Other [place]-3s Anaphylaxis 01/27/2018 States it would be fatal [...] Added automatically from request for ordonez rgery [id number] 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 01/12/2019 Overview: Added automatically from request for ordonez beckyery [id number] Obesity (BMI 30-39.9) 12/16/2018 Recurrent UTI 05/17/2018 [...] automatically from request for josé luis silvestre [id number] documented as of this encounter (statuses as [...] Date Type Specialty Dieter Zhou MD [address] [id number] [place], [place] [phone] Test, Vtc Pulmonary Function 07/28/2019 Lacquerer Pulmonary Function Visit Technologist Laurie Hull LPC [address] [place], [place] [phone] 08/03/2019 Office Visit Psychiatry Marvin Oconnor MD [address] [place], [place] [phone] 08/21/2019 Office Visit Internal Medicine Zoila Rodas AGNP [address] [place] [phone] 09/06/2019 Office Visit Nephrology Beth Marquez MD [address] [place] [phone] 09/07/2019 Office Visit Psychiatry Kashif Cee MD [address] [place] [phone] 09/14/2019 Office Visit Neurology Eleno Mcnamara MD [address] [place] [phone] 09/15/2019 Office Visit Obstetrics & Gyneco Sukh Rocha MD [address] [facility] [id number] [place], [place] [phone] 11/23/2019 Office Visit Pain Medicine Dieter Zhou MD [address] [facility] [id number] [place], [place] [phone] 01/03/2020 Office Visit Pulmonary Disease Health Maintenance [...] Phone Address Plan / Dates Group HMO [facility] [id number] 2019-P [address] [facility] [id number] [place] [address] documented as of this encounter
--- OUTSIDE RECORDS SUMMARY | 2019-11-09 10:06 | XMS REPORT | Summary of Care ---
Author Author [facility] - Health Organization [facility] - Health Address Unknown Phone Unavailable Care Team Providers Care Seconds Grader Name Role Phone Fabien Fernandes MD Unavailable Marvin Oconnor MD PCP [place] Team 25 Unavailable Reason for Visit * Reason Comments New Patient * (Routine) Referred By Contact Referred To Contact Status Reason Specialty Diagnoses / Procedures Mauricio Yip MD [address] [place] [phone] New Request Cardiology Diagnoses Palpitations P rocedures CONSULT CARDIAC EP/[facility]ART RHY[facility]M [facility] Encounter Details Care Team Description Date Type Department Boom Montana MD [address] [place] [phone] Palpitations (Primary Dx) 07/20/2019 Office Visit [facility] [address] [phone] Allergies Comments Active Allergy Reactions Severity Noted Date Azithromycin Itching 01/07/2019 Ciprofloxacin Rash 01/27/2018 Clindamycin Other - See Medium 10/05/2016 comments, Itching Clonazepam Itching, Medium 11/23/2017 Rash, Swelling All steroids-muscle weakness Corticosteroids Other - See 01/20/2016 (Glucocorticoids) comments Iodine Rash 10/05/2016 Lincomycin Rash Medium 09/15/2017 Nitrofurantoin Rash 01/27/2018 Other Sledge-3s Anaphylaxis 01/27/2018 States it would be fatal [...] bedtime. 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 01/12/2019 Overview: Added automatically from request for josé luis silvestre [id number] Obesity (BMI 30-39.9) 12/16/2018 Recurrent UTI 05/17/2018 [...] automatically from request for josé luis silvestre [id number] documented as of this encounter (statuses as [...] Comments Vital Sign 138/90 07/20/2019 11:15 AM YOKER MACHINE OPERATOR Blood Pressure 91 07/20/2019 11:15 AM YOKER MACHINE OPERATOR Pulse - - Temperature - - Respiratory Rate 94% 07/20/2019 11:15 AM YOKER MACHINE OPERATOR Oxygen Saturation - - Inhaled Oxygen Concentration 81.6 kg (180 lb) 07/20/2019 11:15 AM YOKER MACHINE OPERATOR Weight 154.9 cm (5' 1") 07/20/2019 11:15 AM YOKER MACHINE OPERATOR Height 34.01 07/20/2019 11:15 AM YOKER MACHINE OPERATOR Body Mass Index documented in this encounter Progress Notes * Boom Montana MD - 07/20/2019 11:20 AM YOKER MACHINE OPERATOR Cardiac EP [facility] Note Reason [...] file Gets together: Not on file Attends orthodox service: Not on file Active member of [...] steroids-muscle weakness Iodine Rash Nitrofurantoin Rash Other Sledge-3s Anaphylaxis Shellfish Derived Other - See comments [...] triamcinolone 55 mcg nasal inhaler Use 1 Narberth in each nostril 2 (two) times daily. [...] assistance. Boom Montana MD 07/20/2019 11:27 AM R MACHINE OPERATOR * Tequila Mata - 07/20/2019 11:20 AM YOKER MACHINE OPERATOR 64 year old female has been identified by and name. Previous/Current Encounter Diagnosis: No diagnosis found. 12 Lead EKG was performed as ordered. The patient tolerated the procedure well. Dr montana was notified and provided with a copy of the EKG for review. R MACHINE OPERATOR * Tequila Mata - 07/20/2019 11:20 AM YOKER MACHINE OPERATOR John Nieto is a 64 year old female seen for a follow up visit Appearance: healthy,alert,cooperative. Medications and allergies reviewed with patient by JOSE DAVID. R MACHINE OPERATOR documented in this encounter Plan of Treatment Care Team Description Date Type Specialty James Palumbo MD [address] [facility] [place], [place] [id number] Beth Marquez MD [address] [place] [phone] 07/21/2019 Office Visit Psychiatry Marvin Oconnor MD [address] [place] [phone] 08/21/2019 Office Visit Internal Medicine Zoila Rodas AGNP [address] [place] [phone] 09/06/2019 Office Visit Nephrology Kashif Cee MD [address] [place] [phone] 09/14/2019 Office Visit Neurology Eleno Mcnamara MD [address] [place] [phone] 09/15/2019 Office Visit Obstetrics & Gyneco Sukh Rocha MD [address] [place] [address] [id number] [place], [place] [phone] 11/23/2019 Office Visit Pain Medicine Dieter Zhou MD [address] [place] [address] [id number] [place], [place] [phone] 01/03/2020 Office Visit Pulmonary Disease Order Schedule [...] Effective Phone Address Plan / Dates Group [facility] [id number] 2019-P [address] [facility] [address] [place] [address] documented as of this encounter
--- OUTSIDE RECORDS SUMMARY | 2019-11-09 10:06 | XMS REPORT | Clinical Summary ---
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 01/12/2019 Overview: Added automatically from request for ordonez rgery [id number] Obesity (BMI 30-39.9) 12/16/2018 Recurrent UTI 05/17/2018 [...] automatically from request for josé luis silvestre [id number] Encounters Care Team Description Date Type Specialty Boom Santiago MD Assessment; Seizures; Procedure 07/31/2019 Telephone Cardiology Marvin Oconnor MD Lab Results 07/31/2019 Telephone Internal Medicine Dieter Zhou MD Test, Vtc Pulmonary Function Dyspnea on exertion 07/28/2019 Traffic Engineering Director Pulmonary Function Visit Technologist Doctor Unassigned, Central 07/28/2019 Orders Only Marvin Oconnor MD Results 07/27/2019 Telephone Internal VenetaMarvin Oconnor MD Pcp-Lab Osteoporosis without current pathologica l fracture, unspecified osteoporosis type; Dysuria 07/26/2019 Traffic Engineering Director Phlebotomy Visit Marvin Oconnor MD Osteoporosis without current pathologica l fracture, unspecified osteoporosis type (Primary Dx); Dysuria; Need for shingles vaccine; Chronic pain of right ankle 07/26/2019 Office Visit Internal Medicine Boom Santiago MD Palpitations (Primary Dx) 07/20/2019 Office Visit Cardiology Doctor Unassigned, Central 07/17/2019 Orders Only Marvin Oconnor MD Results 07/14/2019 Telephone Internal VenetaMarvin Oconnor MD Pcp-Lab Dysuria 07/13/2019 Traffic Engineering Director Phlebotomy Visit Marvin Oconnor MD Dysuria (Primary [...] Fernandes MD Pcp-Lab Urinary frequency; Dysuria 06/30/2019 Traffic Engineering Director Phlebotomy Visit Unknown, Attending Yudy Fernandes MD Castillo, Jorge, MD Urinary frequency (Primary Dx); Dysuria; Convulsions, unspecified convulsion type 06/30/2019 Office Visit Internal Medicine Goldie Culver RN 06/29/2019 Abstract [facility] Preventive Medicine Doctor Unassigned, Central 06/22/2019 Orders Only Eleno Mcnamara MD Notification [...] infection; Cough; Seizure 05/24/2019 Urgent Care Family VenetaMarvin Oconnor MD Assessment; FLU; URINARY TRACT INFECTION ; Bladder Pain 05/24/2019 Telephone Internal Medicine Mauricio Yip MD Results 05/23/2019 Telephone Cardiology Leticia Handy MD Medical Records ([facility] [place] ) 05/17/2019 Telephone Internal Medicine Ciara Merrill FNP 05/15/2019 Hospital Radiology Encounter Sukh Harris MD Refill Request 05/15/2019 Telephone Pain Medicine Ciara Merrill FNP Xray Results 05/15/2019 Telephone Urology Mauricio Yip MD Surgery Clearance 05/12/2019 Telephone Cardiology Doctor Unassigned, Central 05/12/2019 Orders Only Doctor Unassigned, Central 05/08/2019 Orders Only Ciara Merrill Trisha, CAFETERIA COOK Recurrent UTI (Primary Dx); Right flank pain [...] Comments Vital Sign 144/91 07/26/2019 3:13 PM [employer] LEAK TESTER Blood Pressure 72 07/26/2019 3:13 PM [employer] LEAK TESTER Pulse 37 C (98.6 F) 07/26/2019 3:13 PM [employer] LEAK TESTER Temperature 18 07/26/2019 3:13 PM [employer] LEAK TESTER Respiratory Rate 96% 07/26/2019 3:13 PM [employer]ACK[employer] LEAK TESTER RA Oxygen Saturation - - Inhaled Oxygen Concentration 82.6 kg (182 lb) 07/26/2019 3:13 PM [employer] LEAK TESTER Weight 154.9 cm (5' 1") 07/26/2019 3:13 PM [employer] LEAK TESTER Height 34.39 07/26/2019 3:13 PM [employer] LEAK TESTER Body Mass Index Plan of Treatment Care Team Description Date Type Specialty Merrill Parks MD [address] [place] [address] [phone] 08/07/2019 Office Visit Orthopedic Surgery Marvin Oconnor MD [address] [address] 08/21/2019 Office Visit Internal Medicine Zoila Rodas AGNP [address] [place] [address] [phone] 09/06/2019 Office Visit Nephrology Kashif Cee MD [address] [place] [address]. [place] [address] 09/14/2019 Office Visit Neurology Eleno Mcnamara MD [address] [place] [address] [phone] 09/15/2019 Office Visit Obstetrics & Gyneco logy Sukh Harris MD [address] [place] [address] [id number] [place], [place] [phone] 11/23/2019 Office Visit Pain Medicine Dieter Zhou MD [address] [place] [address] [id number] [place], [place] [phone] 01/03/2020 Office Visit Pulmonary Disease Health Maintenance [...] FUNCTION TEST Routine 07/28/2019 (RESULTS) 10:43 AM [employer]IC[employer] LEAK TESTER EXTERNAL PROVIDER RECORDS Routine 07/28/2019 12:01 AM [employer] LEAK TESTER EXTERNAL PROVIDER RECORDS Routine 07/28/2019 12:01 AM [employer] LEAK TESTER URINALYSIS Routine 07/26/2019 Dysuria 4:25 PM [employer] LEAK TESTER VITAMIN D, 25-OH Routine 07/26/2019 Osteoporosis without 4:25 PM [employer] LEAK TESTER current pathological fracture, unspecified osteoporosis type VARICELLA-ZOSTER VACCINE, Routine 07/26/2019 Need for shingles vaccine (SHINGRIX) 50 MCG/0.5 ML, 3:58 PM [employer] LEAK TESTER IM EKG-12 LEAD Routine 07/20/2019 11:23 AM [employer] LEAK TESTER EXTERNAL PROVIDER RECORDS Routine 07/17/2019 12:01 AM [employer] LEAK TESTER URINE CULTURE Routine 07/13/2019 Dysuria 4:19 PM [employer] LEAK TESTER URINALYSIS Routine 07/13/2019 Dysuria 4:19 PM [employer] LEAK TESTER EXTERNAL PROVIDER RECORDS Routine 07/11/2019 12:01 AM [employer] LEAK TESTER CBC WITH DIFFERENTIAL STAT 07/05/2019 Rash 1:35 PM [employer] LEAK TESTER CBC WITH DIFFERENTIAL STAT 07/05/2019 Rash 1:35 PM [employer] LEAK TESTER BASIC METABOLIC PANEL STAT 07/05/2019 Rash (NA, K, CL, CO2, GLUCOSE, 1:35 PM [employer] LEAK TESTER BUN, CREATININE, CA) EMERGENCY SERVICES Routine 07/05/2019 AGREEMENTS AND 12:01 AM [employer] LEAK TESTER AUTHORIZATIONS EXTRA TUBE URINE CULTURE Routine 07/02/2019 9:54 AM [employer] LEAK TESTER URINALYSIS STAT 07/02/2019 Cough 9:54 AM [employer] LEAK TESTER XR CHEST 1 VW STAT 07/02/2019 Cough 7:58 AM [employer] LEAK TESTER EXTRA TUBE LT. BLUE STAT 07/02/2019 7:40 AM [employer] LEAK TESTER CBC WITH DIFFERENTIAL STAT 07/02/2019 Cough 7:40 AM [employer] LEAK TESTER COMP. METABOLIC PANEL STAT 07/02/2019 Cough (15415) 7:40 AM [employer] LEAK TESTER CBC WITH DIFFERENTIAL Routine 07/02/2019 Cough 7:40 AM [employer] LEAK TESTER CONSENT/REFUSAL FOR Routine 07/02/2019 DIAGNOSIS AND TREATMENT 7:08 AM [employer] LEAK TESTER HOSPITAL ADMISSION Routine 07/02/2019 12:01 AM [employer] LEAK TESTER URINALYSIS JAMES 06/30/2019 Urinary frequen cy 2:37 PM [employer] LEAK TESTER Dysuria URINE CULTURE JAMES 06/30/2019 Urinary frequen cy 2:37 PM [employer] LEAK TESTER Dysuria EXTERNAL PROVIDER RECORDS Routine 06/22/2019 12:01 AM [employer] LEAK TESTER URINE CULTURE Routine 06/16/2019 Recurrent UTI ( urinary 11:12 AM [employer] LEAK TESTER tract infection) POCT URINALYSIS Routine 06/16/2019 Recurrent UTI (urinary 11:05 AM [employer] LEAK TESTER tract infection) EXTRA TUBE URINE CULTURE STAT 06/02/2019 7:24 PM [employer] LEAK TESTER EXTRA TUBE LT. BLUE STAT 06/02/2019 7:24 PM [employer] LEAK TESTER CBC WITH DIFFERENTIAL STAT 06/02/2019 Acute cy stitis with 7:24 PM [employer] LEAK TESTER hematuria HEPATIC FUNCTION PANEL STAT 06/02/2019 Acute c ystitis with (95621) (ALB,T.PRO,BILI 7:24 PM [employer] LEAK TESTER hematuria T,BU/BC,ALT,AST,ALK PHOS) BASIC METABOLIC PANEL STAT 06/02/2019 Acute cy stitis with (NA, K, CL, CO2, GLUCOSE, 7:24 PM [employer] LEAK TESTER hematuria BUN, CREATININE, CA) CBC WITH DIFFERENTIAL Routine 06/02/2019 Acute cy stitis with 7:24 PM [employer] LEAK TESTER hematuria URINALYSIS STAT 06/02/2019 Acute cystitis with 7:24 PM [employer] LEAK TESTER hematuria EMERGENCY SERVICES Routine 06/02/2019 AGREEMENTS AND 12:01 AM [employer] LEAK TESTER AUTHORIZATIONS AUTHORIZATION FOR RELEASE Routine 05/30/2019 OF PHI 12:01 AM [employer] LEAK TESTER URINE CULTURE Routine 05/24/2019 Urinary tract i nfection 1:15 PM [employer] LEAK TESTER without hematuria, site unspecified POCT URINALYSIS STAT 05/24/2019 Urinary tract infection 12:21 PM [employer] LEAK TESTER without hematuria, site unspecified CT ABDOMEN PELVIS WO Routine 05/15/2019 Recurrent UTI CONTRAST 8:18 AM [employer] LEAK TESTER Right flank pain MEDICAL RELEASE/CLEARANCE Routine 05/12/2019 FORMS 12:01 AM [employer] LEAK TESTER REFERRAL- Routine 05/08/2019 REQUEST/RESPONSE 12:01 AM [employer] LEAK TESTER from Last 3 Months Results * PULMONARY FUNCTION TEST (RESULTS) (07/28/2019 10:43 AM [employer] PACK[employer] LEAK TESTER) Specimen Performing Organization Address City/[facility] one Number PFT * EXTERNAL PROVIDER RECORDS (07/28/2019 12:01 AM [employer] PACK[employer] LEAK TESTER) Only the most recent of 5 results within the time period is included. Specimen Performing Organization Address [facility] one Number HIM * VITAMIN D, 25-OH (07/26/2019 4:25 PM [employer] LEAK TESTER) VIT D 25OH 23 (L) 25 - 80 ng/mL [facility] Specimen Blood Narrative Performed At Deficiency: <20 ng/mL [facility] Insufficiency: 20-24 ng/mL SERVICES Optimal: 25-80 ng/mL Performing Organization Address [facility] Ph one Number [facility] CLIA: [id number], [address] [place] [address] [facility] * URINALYSIS (07/26/2019 4:25 PM [employer] PACK[employer] LEAK TESTER) Only the most recent of 5 results [...] SERVICES SQ EPITH 19 (H) <=2 HPF [facility] Specimen Urine - URINE, CLEAN CATCH Performing Organization Address [facility] Ph one Number [facility] CLIA: [id number], [address] [place] [address] [facility] * EKG-12 LEAD (07/20/2019 11:23 AM [employer]ACK[employer] LEAK TESTER) Specimen Performing Organization Address [facility] one Number HST * URINE CULTURE (07/13/2019 4:19 PM [employer] PACKAGES LEAK TESTER) Only the most recent of 4 results within the time period is included. URINE CULTURE >100,000 CFU/mL Klebsiella [facility] pneumoniae SERVICES Specimen Urine - [...] pyelonephritis or systemic disease. Performing Organization Address [facility] one Number [facility] CLIA: [id number], [address] [place] [address] [facility] * CBC WITH DIFFERENTIAL (07/05/2019 1:35 PM [employer] PACK[employer] LEAK TESTER) Only the most recent of 3 results within the time period is included. WBC 5.02 4.30 - 11.10 [facility] 10*3/L [facility] RBC 4.40 3.93 - 5.25 10*6/L [facility] LABO RATORY [facility] HGB 12.5 11.6 - 15.0 g/dL [facility] RY [facility] HCT 37.5 35.7 - 45.2 % [facility] MCV 85.2 80.6 - 95.5 fL [facility] MCH 28.4 25.9 - 32.8 pg [facility] MCHC 33.3 31.6 - 35.1 g/dL [facility] RDW-SD 42.9 39.0 - 49.9 fL [facility] RDW-CV 13.8 12.0 - 15.5 % [facility] PLT 151 (L) 166 - 358 10*3/L [facility] MPV 10.8 9.5 - 12.9 fL [facility] NRBC/100 WBC 0.0 0.0 - 10.0 /100 WBCs [facility] NRBC x10^3 <0.01 10*3/L [facility] GRAN MAT (NEUT) 64.5 % [facility] % [facility] IMM GRAN % 0.40 % [facility] LYMPH % 25.3 % [facility] MONO % 9.2 % [facility] EOS % 0.2 % [facility] BASO % 0.4 % [facility] GRAN MAT 3.24 1.88 - 7.09 10*3/uL [facility] x10^3(ANC) [facility] IMM GRAN x10^3 <0.03 0.00 - 0.06 10*3/uL [facility] LYMPH x10^3 1.27 (L) 1.32 - 3.29 10*3/uL [facility] MONO x10^3 0.46 0.33 - 0.92 10*3/uL [facility] EOS x10^3 <0.03 (L) 0.03 - 0.39 10*3/uL [facility] BASO x10^3 <0.03 0.01 - 0.07 10*3/uL [facility] AT[facility] Specimen Blood - HAND, RIGHT Performing Organization Address City/State/Zipcode Ph one Number [facility] CLIA: [id number], [address] [place], [place] [address] [facility] * BASIC METABOLIC PANEL (NA, K, CL, CO2, GLUCOSE, BUN, CREATININE, CA) (07/05/2019 1:35 PM [employer]ACK[employer] LEAK TESTER) Only the most recent of 2 results within the time period is included. NA 140 135 - 145 mmol/L [facility] K 3.2 (L) 3.5 - 5.0 mmol/L [facility] RY [facility] CL 104 98 - 108 mmol/L [facility] Y [facility] CO2 TOTAL 26 23 - 31 mmol/L [facility] AGAP 10 2 - 16 [facility] BUN 15 7 - 23 mg/dL [facility] GLUCOSE 92 70 - 110 mg/dL [facility] CREATININE 0.61 0.50 - 1.04 mg/dL [facility] CAL[facility]UM 9.0 8.6 - 10.6 mg/dL [facility] eGFR 99.1 mL/min/1.73m2 [facility] Calculation [facility] ([facility] [place]) eGFR 120.1 mL/min/1.73m2 [facility] Calculation [facility] ([facility] [place]) Specimen Blood - HAND, RIGHT Narrative Performed At Association of Glomerular Filtration Rate (GFR) and S taging of Kidney Disease* [facility] + + +------ + [facility] | GFR (mL/min/1.73 m2) | [...] abnormalities in imaging tests). Performing Organization Address [facility] one Number [facility] CLIA: [id number], [address] [place], [place] [address] [facility] * EMERGENCY SERVICES AGREEMENTS AND AUTHORIZATIONS (07/05/2019 12:01 AM [employer] LEAK TESTER) Only the most recent of 2 results within the time period is included. Specimen Performing Organization Address [facility] one Number HIM * EXTRA TUBE URINE CULTURE (07/02/2019 9:54 AM [employer] LEAK TESTER) Only the most recent of 2 results within the time period is included. Specimen Urine - URINE, CLEAN CATCH Performing Organization Address [facility] one Number [facility] CLIA: [id number], [address] [place], [place] [address] [facility] * Chest 1 View (07/02/2019 7:58 AM [employer] LEAK TESTER) Specimen Impressions Performed At No acute cardiopulmonary abnormality PACS/VR/DOSE Narrative Performed At EXAM: XR CHEST 1 VW PACS/VR/DOSE HISTORY: cough COMPARISON: 03/27/2019. FINDINGS: The lungs are clear. No pleural effusio n or pneumothorax is seen. No focal consolidation is seen. The heart is normal in size. No acute osseous abnormality is identif ied. Procedure Note [facility], Radiant Results Inft User - 07/02/2019 9:04 AM [employer] LEAK TESTER EXAM: XR CHEST 1 VW HISTORY: cough COMPARISON: 03/27/2019. FINDINGS: The lungs are clear. No pleural effusion or pneumothorax is seen. No focal consolidation is seen. The heart is normal in size. No acute osseous abnormality is identified. IMPRESSION No acute cardiopulmonary abnormality Performing Organization Address [facility] one Number PACS/VR/DOSE * EXTRA TUBE LT. BLUE (07/02/2019 7:40 AM [employer] LEAK TESTER) Only the most recent of 2 results within the time period is included. Specimen Blood Performing Organization Address City/State/Zipcode Ph one Number [facility] CLIA: [id number], [address] [place], [place] [address] [facility] * COMP. METABOLIC PANEL (37265) (07/02/2019 7:40 AM [employer] LEAK TESTER) NA 140 135 - 145 mmol/L [facility] K 3.2 (L) 3.5 - 5.0 mmol/L [facility] RY [facility] CL 101 98 - 108 mmol/L [facility] Y [facility] CO2 TOTAL 28 23 - 31 mmol/L [facility] AGAP 11 2 - 16 [facility] BUN 16 7 - 23 mg/dL [facility] GLUCOSE 122 (H) 70 - 110 mg/dL [facility] CREATININE 0.59 0.50 - 1.04 mg/dL [facility]AT ORY [facility] TOTAL BILI 0.5 0.1 - 1.1 mg/dL [facility] Y [facility] CALCIUM 8.7 8.6 - 10.6 mg/dL [facility] T PROTEIN 6.7 6.3 - 8.2 g/dL [facility] ALBUMIN 4.3 3.5 - 5.0 g/dL [facility] ALK PHOS 74 34 - 122 U/L [facility] ALTv 31 5 - 35 U/L [facility] AST(SGOT) 30 13 - 40 U/L [facility] eGFR 102.9 mL/min/1.73m2 [facility] Calculation SERVICES-[facility] (Non-[facility] [place]) eGFR 124.8 mL/min/1.73m2 [facility] Calculation [facility] ([facility] [place]) Specimen Blood - VENOUS Narrative Performed At Association of Glomerular Filtration Rate (GFR) and S taging of Kidney Disease* [facility] + + +------ + SERVICES-CLEAR QUAN [...] abnormalities in imaging tests). Performing Organization Address [facility] Ph one Number [facility] CLIA: [id number], [address] [place] [address] [facility] * CONSENT/REFUSAL FOR DIAGNOSIS AND TREATMENT (07/02/2019 7:08 AM [employer] LEAK TESTER) Specimen Performing Organization Address [facility] Ph one Number HIM * HOSPITAL ADMISSION (07/02/2019 12:01 AM [employer] LEAK TESTER) Specimen Performing Organization Address [facility] Ph one Number HIM * POCT URINALYSIS W SPECIFIC GRAVITY (06/16/2019 11:05 AM [employer] LEAK TESTER) Only the most recent of 2 results [...] ALT, AST, ALK PHOS) (06/02/2019 7:24 PM [employer] LEAK TESTER) TOTAL BILI 0.3 0.1 - 1.1 mg/dL [facility] BILI UNCON 0.2 0.1 - 1.1 mg/dL [facility] BILI CONJ 0.0 0.0 - 0.3 mg/dL [facility] T PROTEIN 7.4 6.3 - 8.2 g/dL [facility] ALBUMIN 4.7 3.5 - 5.0 g/dL [facility] ALK PHOS 69 34 - 122 U/L [facility] ALTv 34 5 - 35 U/L [facility] AST(SGOT) 30 13 - 40 U/L [facility] Specimen Blood - ARM, RIGHT Performing Organization Address City[facility] Ph one Number [facility] CLIA: [id number], [address] [place] [phone] 98 [facility] * AUTHORIZATION FOR RELEASE OF PHI (05/30/2019 12:01 AM [employer] LEAK TESTER) Specimen Performing Organization Address [facility] Ph one Number HIM * CT ABDOMEN PELVIS WO CONTRAST (05/15/2019 8:18 AM [employer] PACK[employer] LEAK TESTER) Specimen Impressions Performed At No nephrolithiasis or [...] Results Inft User - 05/15/2019 9:04 AM [employer] P[employer] LEAK TESTER EXAM: CT ABDOMEN AND PELVIS WITHOUT CONTRAST [...] with the above report. Performing Organization Address City/State/[facility] Ph one Number PACS/VR/DOSE * MEDICAL RELEASE/CLEARANCE FORMS (05/12/2019 12:01 AM [employer]ACK[employer] LEAK TESTER) Specimen Performing Organization Address [facility] Ph one Number HIM * REFERRAL- REQUEST/RESPONSE (05/08/2019 12:01 AM [employer] LEAK TESTER) Specimen Performing Organization Address City/State/[facility] Centercode Ph one Number HIM from Last 3 Months Insurance Type Payer Benefit Subscriber ID Effective Phone Address Plan / Dates Group HMO [facility] [id number] 2019-P [address] [facility] [id number] [place] [address] ([place]) [place] [address]
--- OUTSIDE RECORDS SUMMARY | 2019-11-09 10:07 | XMS REPORT | Summary of Care ---
Author Author [facility] - Health Organization [facility] - Health Address Unknown Phone Unavailable Care Team Providers Care Early Interventionist Name Role Phone Fabien Fernandes MD Unavailable Marvin Oconnor MD PCP Ulysses Lazar 25 Unavailable Reason for Visit * Reason Comments Assessment Encounter Details Care Team Description Date Type Department Boom Santiago MD [address] [place] [phone] Assessment 08/23/[address] [facility] [address] [phone] Allergies Comments Active Allergy Reactions Severity Noted Date Azithromycin Itching 01/07/2019 Ciprofloxacin Rash 01/27/2018 Clindamycin Other - See Medium 10/05/2016 comments, Itching Clonazepam Itching, Medium 11/23/2017 Rash, Swelling All steroids-muscle weakness Corticosteroids Other - See 01/20/2016 (Glucocorticoids) comments Doxycycline Rash Low 08/21/2019 Iodine Rash 10/05/2016 "swelling internally" per patient Cephalexin Itching, Rash 08/18/2019 Lincomycin Rash Medium 09/15/2017 Nitrofurantoin Rash 01/27/2018 Other [place]-3s Anaphylaxis 01/27/2018 States it would be fatal Penicillins Other - See High 01/20/2016 comments, Shortness of Breath Shellfish Derived Other - See 03/18/2019 comments BActrim Rash Sulfamethizole Rash 07/05/2019 New string of tetanus- went to ER , medication for throat closing up Tetanus Vaccines And Swelling High 6 Toxoid documented as of this encounter (statuses as of 08/23/2019) Medications End Date Status Medication Sig Dispensed [...] 0 Psychogenic nonepileptic mouth daily seizure Active hydrOXYzine 25 mg tablet Take 25 mg by 0 mouth 2 (two) times daily. Active cannabidiol, CBD, Take by 0 (CANNABIDIOL ORAL) mouth 3 (three) times daily as needed. Active fluticasone propionate 50 Use 1 [place] 16 g 0 mcg/actuation nasal in each 0 sprayIndications: Viral nostril 2 URI with cough (two) times daily. Active VITAMIN D3 10 mcg (400 Take 1 tablet 0 02 unit) tablet by mouth 0 daily. 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 01/12/2019 Overview: Added automatically from request for ordonez beckyery [id number] Obesity (BMI 30-39.9) 12/16/2018 Recurrent UTI 05/17/2018 [...] as of this encounter (statuses as of 08/23/2019) Resolved Problems Problem Noted Date Resolved Date Spondylosis of lumbar region without myelopathy or radiculo johanna 01/12/2019 01/16/2019 Overview: Added automatically from request for josé luis silvestre [id number] documented as of this encounter (statuses as of 08/23/2019) Immunizations Name Administration Dates Next Due Influenza [...] [facility] [place] [address] [phone] Beth Marquez MD [address] [place] [phone] 08/25/2019 Office Visit Psychiatry Pacemaker/Icd, Clc 08/29/2019 Appointment Cardiac Electrophys iology Laurie Hull LPC [address] [place], [place] [phone] 08/31/2019 Office Visit Psychiatry Zoila Rodas, AGNP [address] [place] [phone] 09/06/2019 Office Visit Nephrology Kashif Cee MD [address] [place] [phone] 09/14/2019 Office Visit Neurology Eleno Mcnamara MD [address] [place] [address] [phone] 09/15/2019 Office Visit Obstetrics & Gyneco logy Nurse, Pcp Gen Med [place] Team 10/17/2019 Nurse Visit Internal [place] [address] [place], [place] [phone] 11/09/2019 Office Visit Internal Medicine Sukh Harris MD [address] [place] [address] [id number] [place], [place] [address] 11/23/2019 Office Visit Pain Medicine Dieter Zhou MD [address] [place] [address] [id number] [place], [place] [address] 01/03/2020 Office Visit Pulmonary Disease Health Maintenance [...] Phone Address Plan / Dates Group HMO [facility] [id number] 2019-P [address] [facility] [id number] [place] [address] documented as of this encounter
--- OUTSIDE RECORDS SUMMARY | 2019-11-09 10:07 | XMS REPORT | Summary of Care ---
Author Author [facility] - Health Organization [facility] - Health Address Unknown Phone Unavailable Care Team Providers Care Prosthetic Aide Name Role Phone Fabien Fernandes MD Unavailable Marvin Oconnor MD PCP [place] Team 25 Unavailable Reason for Visit * Reason Comments Assessment Rx Concern/Question Encounter Details Care Team Description Date Type Department Boom Santiago MD [address] [place] [phone] Assessment; Rx Concern/Question 08/21/2019 Telephone [facility] [address]io[address] [phone] Allergies Comments Active Allergy Reactions Severity Noted Date Azithromycin Itching 01/07/2019 Ciprofloxacin Rash 01/27/2018 Clindamycin Other - See Medium 10/05/2016 comments, Itching Clonazepam Itching, Medium 11/23/2017 Rash, Swelling All steroids-muscle weakness Corticosteroids Other - See 01/20/2016 (Glucocorticoids) comments Doxycycline Rash Low 08/21/2019 Iodine Rash 10/05/2016 "swelling internally" per patient Cephalexin Itching, Rash 08/18/2019 Lincomycin Rash Medium 09/15/2017 Nitrofurantoin Rash 01/27/2018 Other [place]-3s Anaphylaxis 01/27/2018 States it would be fatal Penicillins Other - See High 01/20/2016 comments, Shortness of Breath Shellfish Derived Other - See 03/18/2019 comments BActrim Rash Sulfamethizole Rash 07/05/2019 New string of tetanus- went to ER , medication for throat closing up Tetanus Vaccines And Swelling High 6 Toxoid documented as of this encounter (statuses as of 08/21/2019) Medications End Date Status Medication Sig Dispensed [...] needed. Active fluticasone propionate 50 Use 1 [place] 16 g 0 mcg/actuation nasal in each 0 sprayIndications: Viral nostril 2 URI with cough (two) times daily. Active VITAMIN D3 10 mcg (400 Take 1 tablet 0 02 unit) tablet by mouth 0 daily. 08/21/2019 Discontinued (Condition no l onger warrants) doxycycline hyclate 100 Take 1 tablet 6 tablet 0 mg tabletIndications: s-p by mouth 2 0 loop recorder insertion (two) times daily for 3 days. Indications: s-p loop recorder insertion documented as of this encounter (statuses as of 08/21/2019) Active Problems Problem Noted Date Chronic lumbar radiculopathy 01/12/2019 Overview: 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 [id number] Obesity (BMI 30-39.9) 12/16/2018 Recurrent UTI 05/17/2018 [...] as of this encounter (statuses as of 08/21/2019) Resolved Problems Problem Noted Date Resolved Date Spondylosis of lumbar region without myelopathy or radiculo johanna 01/12/2019 01/16/2019 Overview: Added automatically from request for josé luis penacarrie [id number] documented as of this encounter (statuses as of 08/21/2019) Immunizations Name Administration Dates Next Due Influenza [...] Date Type Specialty James Palumbo MD [address] [place], [place] [address] Beth Marquez MD [address] [place] [address] [phone] 08/25/2019 Office Visit Psychiatry Pacemaker/Icd, Clc 08/29/2019 Appointment Cardiac Electrophys iology Laurie Hull LPC [address] [place], [place] [phone] 08/31/2019 Office Visit Psychiatry Zoila Rodas AGNP [address] [place] [phone] 09/06/2019 Office Visit Nephrology Kashif Cee MD [address] [place] [phone] 09/14/2019 Office Visit Neurology Eleno Mcnamara MD [address] [place] [address] [phone] 09/15/2019 Office Visit Obstetrics & Gyneco logy Nurse, Pcp Gen Med [place] Team 10/17/2019 Nurse Visit Internal [place] [address] [place], [place] [phone] 11/09/2019 Office Visit Internal Medicine Sukh Harris MD [address] [place] [address] [id number] [place], [place] [phone] 11/23/2019 Office Visit Pain Medicine Dieter Zhou MD [address] [place] [address] [id number] [place] [address] [phone] 01/03/2020 Office Visit Pulmonary Disease Health Maintenance [...] Effective Phone Address Plan / Dates Group [facility] [id number] 2019-P [address] [facility] [id number] [place] [address] documented as of this encounter
--- OUTSIDE RECORDS SUMMARY | 2019-11-09 10:07 | XMS REPORT | Summary of Care ---
Author Author [facility] - Health Organization [facility] - Health Address Unknown Phone Unavailable Care Team Providers Care Evaluator Name Role Phone Fabien Fernandes MD Unavailable Marvin Oconnor MD PCP Ulysses Lazar 25 Unavailable Reason for Visit * Reason Comments Appointment Encounter Details Care Team Description Date Type Department Boom Santiago MD [address] [place] [phone] Appointment 08/17/2019 Telephone [facility] Heart C enter - Associate Software Application Engineer, [address] [phone] Allergies Comments Active Allergy Reactions Severity Noted Date Azithromycin Itching 01/07/2019 Ciprofloxacin Rash 01/27/2018 Clindamycin Other - See Medium 10/05/2016 comments, Itching Clonazepam Itching, Medium 11/23/2017 Rash, Swelling All steroids-muscle weakness Corticosteroids Other - See 01/20/2016 (Glucocorticoids) comments Iodine Rash 10/05/2016 Lincomycin Rash Medium 09/15/2017 Nitrofurantoin Rash 01/27/2018 Other [place]-3s Anaphylaxis 01/27/2018 States it would be fatal Penicillins Other - See High 01/20/2016 comments, Shortness of Breath Shellfish Derived Other - See 03/18/2019 comments BActrim Rash Sulfamethizole Rash 07/05/2019 New string of tetanus- went to ER , medication for throat closing up Tetanus Vaccines And Swelling High 6 Toxoid documented as of this encounter (statuses as of 08/17/2019) Medications End Date Status Medication Sig Dispensed [...] mouth 0 ChewIndications: Vitamin daily. D insufficiency Active fluticasone propionate 50 Use 1 [place] 16 g 0 mcg/actuation nasal in each 0 sprayIndications: Viral nostril 2 URI with cough (two) times daily. 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 01/12/2019 Overview: [facility] [id number] Obesity (BMI 30-39.9) 12/16/2018 Recurrent UTI 05/17/2018 [...] as of this encounter (statuses as of 08/17/2019) Resolved Problems Problem Noted Date Resolved Date Spondylosis of lumbar region without myelopathy or radiculo johanna 01/12/2019 01/16/2019 Overview: Added automatically from request for josé luis silvestre [id number] documented as of this encounter (statuses as of 08/17/2019) Immunizations Name Administration Dates Next Due Influenza [...] Description Date Type Specialty Boom Santiago MD [address] [place] [phone] Provider, Clc Ep Lab Area, Clc Holding 08/18/2019 Appointment Cardiac Electrophys iology James Palumbo MD [address] [facility] [address] [place], [place] [address] Beth Marquez MD [address] [place] [phone] 08/25/2019 Office Visit Psychiatry Laurie Hull LPC [address] [place], [place] [phone] 08/31/2019 Office Visit Psychiatry Zoila Rodas AGNP [address] [place] [address] [phone] 09/06/2019 Office Visit Nephrology Kashif Cee MD [address] [place] [phone] 09/14/2019 Office Visit Neurology Eleno Mcnamara MD [address] [place] [phone] 09/15/2019 Office Visit Obstetrics & Gyneco logy Nurse, Pcp Gen Med [place] Team 10/17/2019 Nurse Visit Internal [place] MD [address] [place], [place] [phone] 11/09/2019 Office Visit Internal Medicine Sukh Harris MD [address] [place] [address] [id number] [place], [place] [phone] 11/23/2019 Office Visit Pain Medicine Dieter Zhou MD [address] [place] [address] [id number] [place], [place] [address] 01/03/2020 Office Visit Pulmonary Disease Health Maintenance [...] Phone Address Plan / Dates Group HMO [facility] [id number] 2019-P [address] [facility] [id number] [place] [address] documented as of this encounter
--- OUTSIDE RECORDS SUMMARY | 2019-11-09 10:07 | XMS REPORT | Summary of Care ---
Author Author [facility] - Health Organization [facility] - Health Address Unknown Phone Unavailable Care Team Providers Care Scientific Informatics Project Leader Name Role Phone Fabien Fernandes MD Unavailable Marvin Oconnor MD PCP Ulysses Lazar 25 Unavailable Reason for Referral * Radiology Services (Routine) Referred By Contact Referred To Contact Status Reason Specialty Diagnoses / Procedures Marvin Oconnor MD [address] [facility] [address] [address] New Request Diagnostic Diagnoses Radiology Breast cancer screening by mammogram P rocedures BI SCREENING MAMMOGRAM BILATERAL Reason for Visit * Reason Comments Cough x 4 days WHEEZING Encounter Details Care Team Description Date Type Department Marvin Oconnor MD [address] [facility] [address] [address] Viral URI with cough (Primary Dx); Goiter; Mesenteric panniculitis; Breast cancer screening by mammogram 08/16/2019 Office Visit [facility] [address], [address] [place] [address] Allergies Comments Active Allergy Reactions Severity Noted Date Azithromycin Itching 01/07/2019 Ciprofloxacin Rash 01/27/2018 Clindamycin Other - See Medium 10/05/2016 comments, Itching Clonazepam Itching, Medium 11/23/2017 Rash, Swelling All steroids-muscle weakness Corticosteroids Other - See 01/20/2016 (Glucocorticoids) comments Iodine Rash 10/05/2016 Lincomycin Rash Medium 09/15/2017 Nitrofurantoin Rash 01/27/2018 Other [place]-3s Anaphylaxis 01/27/2018 States it would be fatal [...] insufficiency Active fluticasone propionate 50 Use 1 Lenox 16 g 0 mcg/actuation nasal in each 0 sprayIndications: Viral nostril 2 URI with cough (two) times daily. 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 01/12/2019 Overview: Added automatically from request for ordonez rgery [id number] Obesity (BMI 30-39.9) 12/16/2018 Recurrent UTI 05/17/2018 [...] Added automatically from request for ordonez rgery [id number] documented as of this encounter (statuses as [...] Signs Reading Time Taken Comments Vital Sign 126/77 08/16/2019 1:21 PM LEGAL STENOGRAPHER Blood Pressure 92 08/16/2019 1:21 PM LEGAL STENOGRAPHER Pulse 36.9 C (98.4 F) 08/16/2019 1:21 PM LEGAL STENOGRAPHER Temperature 18 08/16/2019 1:21 PM LEGAL STENOGRAPHER Respiratory Rate 95% 08/16/2019 1:21 PM LEGAL STENOGRAPHER RA Oxygen Saturation - - Inhaled Oxygen Concentration 81.2 kg (179 lb) 08/16/2019 1:21 PM LEGAL STENOGRAPHER Weight 154.9 cm (5' 1") 08/16/2019 1:21 PM LEGAL STENOGRAPHER Height 33.82 08/16/2019 1:21 PM LEGAL STENOGRAPHER Body Mass Index documented in this encounter Patient Instructions * Patient Instructions* Marvin Oconnor MD - 08/16/2019 1:00 PM LEGAL STENOGRAPHER Please follow up with GI for the mesenteric panniculitis seen on CT. Please start using flonase in each nostril twice daily. Remember to point the s pray at the ear on the same side of the nostril. Stop using if you start having bloody noses. Please continue using cetirizine and montelukast daily, this should help keep yo u dried up. Don't forget to get the mammogram and bone density scan. L STENOGRAPHER documented in this encounter Progress Notes * Marvin Oconnor MD - 08/16/2019 1:00 PM LEGAL STENOGRAPHER [facility] Note CC: cough HPI: John Nieto is a 64 year old female with PMH of non-epileptic seizure, c hronic interstitial cystitis,HTN, HLD,multiple drug allergies, osteoporosis, anxiety/depression, seasonal allergies, kidney stones presents for evaluation of cough. Patient has had 4 days productive cough with clear phlegm, rhinorrhea , post nasal drip, ear fullness, feeling congested in chest and subjective fever /chills. She eventually presented to the ED on 08/13 where they did a general wo rk up but did not swab for flu. They did do a CT abd/pelvis which revealed some mesenteric fat stranding and was told to follow up with PCP. notes he has been feeling unwell as well. Of note, she had OSH EMG on 08/04 which confirmed non-epileptic seizures. She st ill reports some issue with swallowing and has plans to have a swallow test done by her OSH GI doc. She also notes she was told she had a goiter by a physician in the past and wonders if her thyroid could be checked. Medications: Current Outpatient Medications Medication Sig fluticasone propionate 50 mcg/actuation nasal spray Use 1 Lenox in each nost ril 2 (two) times daily. Cholecalciferol, Vitamin D3, 400 unit Chew Take 1 tablet by mouth daily. cannabidiol, CBD, (CANNABIDIOL ORAL) Take by mouth 3 (three) times daily as needed. coenzyme Q10 100 mg softgel Take 100 mg by mouth. hydrOXYzine 25 mg tablet Take 25 mg by mouth 2 (two) times daily. SERTraline 50 mg tablet Take one tablet [...] Take 10 mg by mouth every morning. PMHx: Past Medical History: Diagnosis Date Depression Frequent falls Hyperlipidemia Hypertension IBS (irritable bowel syndrome) Low back pain Osteoporosis b/l hip Seizure (nonepileptic psychogenic) PSurgical Hx: Past Surgical History: Procedure Laterality Date CHOLECYSTECTOMY HYSTERECTOMY MEDIAL BRANCH BLOCK (SHX) Right 01/23/2019 Surgeon: Sukh aHrris MD; Location: [place] [facility] RADIOFREQUENCY THERMOCOAGULATION N/A 02/15/2019 Surgeon: Sukh Harris MD; Location: [place] OR Location TONSILLECTOMY Family Hx: Family History Problem Relation Age of Onset Heart Mother Hypertension Mother Diabetes Father Hypertension Father Social Hx: Social History Tobacco Use Smoking status: Never Smoker Smokeless tobacco: Never Used Substance Use Topics Alcohol use: No Drug use: No ROS: Gen: malaise Eyes: Negative ENT: Nasal congestion, post nasal drip, rhinorrhea, ear fullness CV: Negative Resp: Productive cough GI: Abdominal pain, dysphagia : Dysuria Musc: Negative Skin: Negative Psych/Neuro: Negative Endo: Negative Heme/Lymph: Negative Allerg/Imm: Negative PE: Vitals: Blood pressure 126/77, pulse 92, temperature 36.9 C (98.4 F), tempe rature source Oral, resp. rate 18, height 5' 1" (1.549 m), weight 179 lb (81.2 k g), SpO2 95 %. General: no acute distress and alert, obese, Eyes: PERRL and EOMI ENT: pharynx normal, no thyromegaly; enlarged neck, L tympanic membrane normal, R side with some clear mucous Cardiovascular: Heart regular, rate, rhythm, no murmurs; no edema Respiratory: soft expiratory wheezing throughout, no respiratory distress GI: abd soft, non-tender, non-distended, +BS, no HSM Musc: no spinal or paraspinal TTP, no joint effusions, strength 5/5 x4, gait nor mal Skin: intact and warm, dry Neuro: alert, oriented Psych: cooperative and mood/affect normal Heme / Lymph / Imm: no lymphadenopathy Chart Review (Labs / Radiology): Chest 1 View Result Date: 08/13/2019 Impression: Prominent cardiac silhouette with mild perihilar vascular congestion . No evidence of an acute infiltrate, pleural effusion, or pneumothorax. Ct Abdomen/pelvis W/o Contrast Result Date: 08/13/2019 Findings suggest mesenteric panniculitis. No evidence of hydronephrosis or nephr olithiasis. Prior hysterectomy, cholecystectomy, and appendectomy. A 1.0 cm hama rtoma lung nodule (hamartoma) is seen in the right lung base. This is a benign f inding and no follow-up is recommended. Assessment / Plan: John Nieto is a 64 year old female presents to clinic today for: Viral URI with cough (primary encounter diagnosis) Comment: Rapid flu in clinic was negative; supportive treatment for now Plan: - c/w cetirizine 10 mg daily and montelukast 10 mg daily - start using flonase 1 spray each nostril - maintain adequate fluid intake Goiter Comment: never had thyroid studies, was told she had goiter. Large neck on exam , thyroid felt normal Plan: - THYROID STIMULATING HORMONE Mesenteric panniculitis Comment: patient has vague abdominal pains, CT from ED revealed findings of mese nteric fat stranding and small mesenteric lymph nodes that suggest mesenteric pa nniculitis. This will require biopsy to confirm and is often treated with predn isone and tamoxifen. Will defer work up and management to specialists Plan: - f/u w/ OSH GI for further work up Health maintenance - flu kcozytk87/28/19 -shingrix07/26/19, 2nd shot pending - allergic to Tdap - Colonoscopydone, 08/2016 Dr. Kianna Hoyt, found hemorrhoids and polyps, plan to repeat in 5 years - pap smear done 08/02/18 - mammogram due, ordered today Follow-up: 3 months Marvin Oconnor MD L STENOGRAPHER documented in this encounter Plan of Treatment Care Team Description Date Type Specialty Boom Santiago MD [address] [place] [phone] Provider, [facility], [facility] 08/18/2019 Appointment Cardiac Electrophys iology James Palumbo MD [address] [facility] [place] [address] Beth Marquez MD [address] [place] [phone] 08/25/2019 Office Visit Psychiatry Laurie Hull LPC [address] [place] [address] 08/31/2019 Office Visit Psychiatry Zoila Rodas, [place] [address] [place] [address] 09/06/2019 Office Visit Nephrology Kashif Cee MD [address] [place] [address]. [place] [phone] 09/14/2019 Office Visit Neurology Eleno Mcnamara MD [address] [place] [phone] 09/15/2019 Office Visit Obstetrics & Gyneco logy Nurse, Pcp Gen Med Nicole Team 10/17/2019 Nurse Visit Internal RolfeMarvin Oconnor MD [address] [place], [place] [phone] 11/09/2019 Office Visit Internal Medicine Sukh Harris MD [address] [facility] [id number] [place], [place] [phone] 11/23/2019 Office Visit Pain Medicine Dieter Zhou MD [address] [facility] [id number] [place], [place] [phone] 01/03/2020 Office Visit Pulmonary Disease Order Schedule Name Type Priority Associated Diag noses Expected: 08/16/2019, Expires: 1 BI SCREENING MAMMOGRAM IMAGING Routine Breast cancer screening BILATERAL by mammogram Health Maintenance Due Date Last Done Comments [...] Procedure Name Priority Date/Time Associated Diag nosis POCT FLU A AND B Routine 08/16/2019 Viral URI wit h cough (MOLECULAR) documented in this encounter Results * POCT FLU A AND B (MOLECULAR) (08/16/2019) POCT INFLUENZA Negative Negative - Negative A POCT INFLUENZA Negative Negative - Negative B Specimen Swab * THYROID STIMULATING HORMONE (08/13/2019 9:02 PM LEGAL STENOGRAPHER) TSH 1.93Comment: Biotin has been 0.45 - 4.70 mIU/L [facility] reported to cause a negative SERVICES[facility]CLE[employer] bias, interpret results [facility] relative to patient's use of biotin. Specimen Blood - VENOUS Performing Organization Address City/State/Zipcode Ph one Number [facility] CLIA: [id number], [address] [id number] 98 [facility] documented in this encounter Visit Diagnoses Diagnosis Viral URI with cough - Primary Acute upper respiratory infections of u nspecified site Goiter Goiter, unspecified Mesenteric panniculitis Sclerosing mesenteritis Breast cancer screening by mammogram documented in this encounter Insurance Type Payer Benefit Subscriber ID Effective Phone Address Plan / Dates Group [facility] [id number] 2019-P [address] [place] [facility] [id number] [place] [address] (Home) [place] [address] documented as of this encounter
--- OUTSIDE RECORDS SUMMARY | 2019-11-09 10:07 | XMS REPORT | Summary of Care ---
Author Author [facility] - Health Organization [facility] - Health Address Unknown Phone Unavailable Care Team Providers Care Quality Control Auditor Name Role Phone Fabien Fernandes MD Unavailable Marvin Oconnor MD PCP Ulysses Lazar 25 Unavailable Reason for Referral * Radiology Services (Routine) Referred By Contact Referred To Contact Status Reason Specialty Diagnoses / Procedures Merrill Parks MD [address] [place] [address] New Request Diagnostic Diagnoses Radiology Right foot pain P rocedures XR ANKLE 3+ VW RIGHT * Radiology Services (Routine) Referred By Contact Referred To Contact Status Reason Specialty Diagnoses / Procedures Merrill Parks MD [address] [place] [address] New Request Diagnostic Diagnoses Radiology Right foot pain P rocedures XR FOOT 3+ VW RIGHT Reason for Visit * Reason Comments New Patient right ankle pain * (Routine) Referred By Contact Referred To Contact Status Reason Specialty Diagnoses / Procedures Marvin Oconnor MD [address] [place] [address] [address] Closed Orthopedic Diagnoses Surgery Chronic pain of right ankle P rocedures CONSULT/REFERRAL ORTHOPAEDIC SURGERY Encounter Details Care Team Description Date Type Department Merrill Parks MD [address] [place] [address] Right foot pain (Primary Dx) 08/07/2019 Office Visit [address] [place] [address] Allergies Comments Active Allergy Reactions Severity Noted Date Azithromycin Itching 01/07/2019 Ciprofloxacin Rash 01/27/2018 Clindamycin Other - See Medium 10/05/2016 comments, Itching Clonazepam Itching, Medium 11/23/2017 Rash, Swelling All steroids-muscle weakness Corticosteroids Other - See 01/20/2016 (Glucocorticoids) comments Iodine Rash 10/05/2016 Lincomycin Rash Medium 09/15/2017 Nitrofurantoin Rash 01/27/2018 Other Force-3s Anaphylaxis 01/27/2018 States it would be fatal [...] Added automatically from request for ordonez konrad [id number] 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 01/12/2019 Overview: Added automatically from request for ordonez konrad [id number] Obesity (BMI 30-39.9) 12/16/2018 Recurrent UTI 05/17/2018 [...] Added automatically from request for ordonez beckyery [id number] documented as of this encounter (statuses as [...] Signs Reading Time Taken Comments Vital Sign 133/82 08/07/2019 1:19 PM SEX THERAPIST Blood Pressure 80 08/07/2019 1:19 PM SEX THERAPIST Pulse 36.3 C (97.4 F) 08/07/2019 1:19 PM SEX THERAPIST Temperature - - Respiratory Rate - - Oxygen Saturation - - Inhaled Oxygen Concentration 82.6 kg (182 lb) 08/07/2019 1:19 PM SEX THERAPIST Weight 154.9 cm (5' 1") 08/07/2019 1:19 PM SEX THERAPIST Height 34.39 08/07/2019 1:19 PM SEX THERAPIST Body Mass Index documented in this encounter Progress Notes * Adebayo Vickers MD - 08/07/2019 1:20 PM SEX THERAPIST [facility] 08/07/2019 14:06 CC: right foot pain HPI John Nieto is a 64 year old female who presents with right foot pain after hi tting it in the shower after a seizure. She was seen at OSH and given boot. No fevers/chills, chest pain/SOB, nausea/vomiting, new numbness, tingling, weakn ess No diabetes, blood clots or bleeding disorders + non epileptic psychogenic seizures Past Medical History: Past Medical History: Diagnosis Date Depression Frequent falls Hyperlipidemia Hypertension IBS (irritable bowel syndrome) Low back pain Osteoporosis b/l hip Seizure (nonepileptic psychogenic) Past Surgical History: Past Surgical History: Procedure Laterality Date CHOLECYSTECTOMY HYSTERECTOMY MEDIAL BRANCH BLOCK (SHX) Right 01/23/2019 Surgeon: Sukh Harris MD; Location: [place] [facility] RADIOFREQUENCY THERMOCOAGULATION N/A 02/15/2019 Surgeon: Sukh Harris MD; Location: [place] OR Location TONSILLECTOMY Medications: Current Outpatient Medications Medication Sig Dispense Refill Cholecalciferol, Vitamin D3, 400 unit Chew Take 1 tablet by mouth daily. 90 tablet 3 cannabidiol, CBD, (CANNABIDIOL ORAL) Take by mouth 3 (three) times daily as needed. coenzyme Q10 100 mg softgel Take 100 mg by mouth. hydrOXYzine 25 mg tablet Take 25 mg by mouth 2 (two) times daily. SERTraline 50 mg tablet Take one tablet by mouth daily 30 tablet 2 gabapentin 400 mg capsule TAKE 1 CAPSULE BY MOUTH THREE TIMES A DAY 90 capsu le 2 hydroCHLOROthiazide 25 mg tablet Take 1 tablet by mouth daily. 90 tablet 3 famotidine 40 mg tablet Take 40 mg by mouth 2 (two) times daily. montelukast 10 mg tablet Take 10 mg by mouth. dicyclomine 20 mg tablet Take 20 mg by mouth 4 (four) times daily. omeprazole 40 mg capsule 40 mg 2 (two) times daily. 3 cetirizine 10 mg tablet Take 10 mg by mouth every morning. 3 No current facility-administered medications for this visit. Allergies: Allergies Allergen Reactions Pcn [Penicillins] Other [...] steroids-muscle weakness Iodine Rash Nitrofurantoin Rash Other Force-3s Anaphylaxis Shellfish Derived Other - See comments Sulfamethizole Rash BActrim Rash Family History: Family History Problem Relation Age of Onset Heart Mother Hypertension Mother Diabetes Father Hypertension Father Review of Systems No fevers or chills. No new motor or sensory changes to the extremities. No rece nt illness. Eats food well. Good digestion. General Physical Examination: General: NAD, AOx3 Skin: intact without lesions or sores Lungs: good diaphragmatic excursion, unlabored breathing Heart: normal peripheral perfusion Abdomen: non-distended Specific Physical Examination: Inspection: skin intact TTP over pain to every location palpated - tubercle, lateral calf, medial and la teral ankle, global foot Unsteady gait but able to bear weight Normal peripheral Perfusion Sensation grossly intact to light touch Motor exam: WNL Special Tests: Drawer's Test: Osmin Test: Squeeze test: Single heel: Double heel: Patrick block test: Silverskjiold test: First ray mobility: Imaging: XR : Heel spur Assessment/Diagnosis: ICD-10-CM ICD-9-CM 1. Right foot pain M79.671 729.5 Plan: I have discussed the patient's physical exam and reviewed their x-rays and imag ing with them in detail. All questions have been answered. We have talked abou t all the treatment options and have agreed upon: -WBAT RLE -OTC NSAID for pain -Orthotics: ankle support -Heat therapy -FOLLOW-UP PRN Patient education/Leaflets given as indicated Education on smoking cessation and proper diet as indicated THERAPIST documented in this encounter Plan of Treatment Care Team Description Date Type Specialty Marvin Oconnor MD [address] [place], [place] [address] 08/21/2019 Office Visit Internal Medicine Laurie Hull LPC [address] [place] [address] 08/31/2019 Office Visit Psychiatry Zoila Rodas AGNP [address] [place] [phone] 09/06/2019 Office Visit Nephrology Beth Marquez MD [address] [place] [phone] 09/07/2019 Office Visit Psychiatry Kashif Cee MD [address] [place] [phone] 09/14/2019 Office Visit Neurology Eleno Mcnamara MD [address] [place], [place] [address] 09/15/2019 Office Visit Obstetrics & Gyneco Sukh Rocha MD [address] [facility] [id number] [place], [place] [phone] 11/23/2019 Office Visit Pain Medicine Dieter Zhou MD [address] [facility] [id number] [place], [place] [address] 01/03/2020 Office Visit Pulmonary Disease Date/Time Name Type Priority Associated Diag noses 08/07/2019 1:50 PM SEX THERAPIST XR FOOT 3+ VW RIGHT IMAGING Routine Right foot pain 08/07/2019 1:50 PM SEX THERAPIST XR ANKLE 3+ VW RIGHT IMAGING Routine Right mike t pain Order Schedule Name Type Priority Associated Diag noses Expected: 08/07/2019, Expires: 1 XR FOOT 3+ VW RIGHT IMAGING Routine Right foot pain Expected: 08/07/2019, Expires: 1 XR ANKLE 3+ VW RIGHT IMAGING Routine Right mike t pain Health Maintenance Due Date Last Done Comments [...] filedocumented in this encounter Visit Diagnoses Diagnosis Right foot pain - Primary Pain in limb documented in this encounter Insurance Type Payer Benefit Subscriber ID Effective Phone Address Plan / Dates Group [facility] [id number] 2019-P [address] [facility] [id number] [place] [address] documented as of this encounter
--- OUTSIDE RECORDS SUMMARY | 2019-11-09 10:07 | XMS REPORT | Summary of Care ---
Author Author [facility] - Health Organization [facility] - Health Address Unknown Phone Unavailable Care Team Providers Care Manager Gyn Name Role Phone Fabien Fernandes MD Unavailable Marvin Oconnor MD PCP Ulysses Lazar 25 Unavailable Reason for Referral * (Routine) Referred By Contact Referred To Contact Status Reason Specialty Diagnoses / Procedures Boom Santiago MD [address] [place] [phone] New Request Diagnoses Syncope and collapse P rocedures Electrophysiology Lab Request for Service (Electrophysiology Use Only) Reason for Visit * Reason Comments Orders Encounter Details Care Team Description Date Type Department Boom Santiago MD [address] [place] [phone] Orders 08/14/2019 Telephone [facility] [address] [phone] Allergies Comments Active Allergy Reactions Severity Noted Date Azithromycin Itching 01/07/2019 Ciprofloxacin Rash 01/27/2018 Clindamycin Other - See Medium 10/05/2016 comments, Itching Clonazepam Itching, Medium 11/23/2017 Rash, Swelling All steroids-muscle weakness Corticosteroids Other - See 01/20/2016 (Glucocorticoids) comments Iodine Rash 10/05/2016 Lincomycin Rash Medium 09/15/2017 Nitrofurantoin Rash 01/27/2018 Other [place]-3s Anaphylaxis 01/27/2018 States it would be fatal Penicillins Other - See High 01/20/2016 comments, Shortness of Breath Shellfish Derived Other - See 03/18/2019 comments BActrim Rash Sulfamethizole Rash 07/05/2019 New string of tetanus- went to ER , medication for throat closing up Tetanus Vaccines And Swelling High 6 Toxoid documented as of this encounter (statuses as of 08/14/2019) Medications End Date Status Medication Sig Dispensed [...] as of this encounter (statuses as of 08/14/2019) Active Problems Problem Noted Date Chronic lumbar radiculopathy 01/12/2019 Overview: Added automatically from request for josé luis silvestre [id number] 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 01/12/2019 Overview: Added automatically from request for josé luis silvestre [id number] Obesity (BMI 30-39.9) 12/16/2018 Recurrent UTI 05/17/2018 [...] as of this encounter (statuses as of 08/14/2019) Resolved Problems Problem Noted Date Resolved Date Spondylosis of lumbar region without myelopathy or radiculo johanna 01/12/2019 01/16/2019 Overview: Added automatically from request for josé luis penacarrie [id number] documented as of this encounter (statuses as of 08/14/2019) Immunizations Name Administration Dates Next Due Influenza [...] Description Date Type Specialty Boom Santiago MD [address] [place] [phone] Provider, [facility] 08/18/2019 Appointment Cardiac Electrophys iology Marvin Oconnor MD [address] [place], [place] [phone] 08/21/2019 Office Visit Internal Medicine Laurie Hull, YULIANA [address] [place], [place] [phone] 08/31/2019 Office Visit Psychiatry Zoila Rodas AGNP [address] [place] [phone] 09/06/2019 Office Visit Nephrology Beth Marquez MD [address] [place] [phone] 09/07/2019 Office Visit Psychiatry Kashif Cee MD [address] [place] [phone] 09/14/2019 Office Visit Neurology Eleno Mcnamara MD [address] [place] [phone] 09/15/2019 Office Visit Obstetrics & Gyneco Sukh Rocha MD [address] [place] [address] [id number] [place], [place] [phone] 11/23/2019 Office Visit Pain Medicine Dieter Zhou MD [address] [place] [address] [id number] [place], [place] [address] 01/03/2020 Office Visit Pulmonary Disease Health Maintenance [...] filedocumented in this encounter Visit Diagnoses Diagnosis Syncope and collapse - Primary documented in this encounter Insurance Type Payer Benefit Subscriber ID Effective Phone Address Plan / Dates Group [facility] [id number] 2019-P [address] [facility] [id number] [place] [address] documented as of this encounter
--- OUTSIDE RECORDS SUMMARY | 2019-11-09 10:07 | XMS REPORT | Summary of Care ---
Author Author [facility] - Health Organization [facility] - Health Address Unknown Phone Unavailable Care Team Providers Care Systems Support Engineer Name Role Phone Fabien Fernandes MD Unavailable Marvin Oconnor MD PCP Ulysses Lazar 25 Unavailable Reason for Visit * (Routine) Referred By Contact Referred To Contact Status Reason Specialty Diagnoses / Procedures Boom Santiago MD [address] [place] [phone] Closed Cardiac Diagnoses Electrophysiolog Palpitations y P rocedures Electrophysiology Lab Request for Service (Electrophysiology Use Only) [place] INSERTION SUBQ CARDIAC RHYTHM MONITOR W/PRGRMG [place] EVENT RECORDER, CARDIAC Encounter Details Care Team Description Date Type Department Boom Santiago MD [address] [place] [phone] Provider, [facility] Ep Lab Area, [facility] Holding Psychogenic nonepileptic seizure (Primar y Dx); Status post placement of implantable loop recorder 08/18/2019 [facility] Heart C enter Encounter - Heart Station, [address] [place] [phone] Allergies Comments Active Allergy Reactions Severity Noted Date Azithromycin Itching 01/07/2019 Ciprofloxacin Rash 01/27/2018 Clindamycin Other - See Medium 10/05/2016 comments, Itching Clonazepam Itching, Medium 11/23/2017 Rash, Swelling All steroids-muscle weakness Corticosteroids Other - See 01/20/2016 (Glucocorticoids) comments Iodine Rash 10/05/2016 "swelling internally" per patient Cephalexin Itching, Rash 08/18/2019 Lincomycin Rash Medium 09/15/2017 Nitrofurantoin Rash 01/27/2018 Other [place]-3s Anaphylaxis 01/27/2018 States it would be fatal Penicillins Other - See High 01/20/2016 comments, Shortness of Breath Shellfish Derived Other - See 03/18/2019 comments BActrim Rash Sulfamethizole Rash 07/05/2019 New string of tetanus- went to ER , medication for throat closing up Tetanus Vaccines And Swelling High 6 Toxoid documented as of this encounter (statuses as of 08/19/2019) Medications End Date Status Medication Sig Dispensed [...] needed. Active fluticasone propionate 50 Use 1 [place] 16 g 0 mcg/actuation nasal in each 0 sprayIndications: Viral nostril 2 URI with cough (two) times daily. Active VITAMIN D3 10 mcg (400 Take 1 tablet 0 02 unit) tablet by mouth 0 daily. 08/21/2019 Active doxycycline hyclate 100 Take 1 tablet 6 tablet 0 mg tabletIndications: s-p by mouth 2 0 loop recorder insertion (two) times daily for 3 days. Indications: s-p loop recorder insertion 08/18/2019 Discontinued coenzyme Q10 100 mg Take 100 mg 0 softgel by mouth. 0 08/18/2019 Discontinued (Duplicate) Cholecalciferol, Vitamin Take 1 tablet 90 tablet 3 D3, 400 unit by mouth 0 ChewIndications: Vitamin daily. 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 01/12/2019 Overview: Added automatically from request for ordonez konrad [id number] Obesity (BMI 30-39.9) 12/16/2018 Recurrent UTI 05/17/2018 [...] as of this encounter (statuses as of 08/19/2019) Resolved Problems Problem Noted Date Resolved Date Spondylosis of lumbar region without myelopathy or radiculo johanna 01/12/2019 01/16/2019 Overview: Added automatically from request for ordonez beckyery [id number] documented as of this encounter (statuses as of 08/19/2019) Immunizations Name Administration Dates Next Due Influenza [...] Signs Reading Time Taken Comments Vital Sign 137/79 08/18/2019 3:15 PM CORE MACHINE TENDER Blood Pressure 71 08/18/2019 3:15 PM CORE MACHINE TENDER Pulse 36.1 C (96.9 F) 08/18/2019 11:57 AM CORE MACHINE TENDER Temperature 19 08/18/2019 3:15 PM CORE MACHINE TENDER Respiratory Rate 96% 08/18/2019 3:15 PM CORE MACHINE TENDER Oxygen Saturation - - Inhaled Oxygen Concentration 80.7 kg (178 lb) 08/18/2019 11:57 AM CORE MACHINE TENDER Weight 154.9 cm (5' 1") 08/18/2019 11:57 AM CORE MACHINE TENDER Height 33.63 08/18/2019 11:57 AM CORE MACHINE TENDER Body Mass Index documented in this encounter Discharge Instructions * Instructions* Selma Everett RN - 08/18/2019 Patient Discharge Instructions Follow instructions as indicated below: Discharge Orders Avoid making important life decisions for the first 48 hours "Do not soak in a bathtub or hot tub for the first 24 hours after procedure No strenuous acctivity for 72 hours "May not operate motorized vehicle for the first 24 hours after procedure "Keep surgical wound dry and free from water, ointments, powders, alcohol, hydro gen peroxide or creams for 2 weeks after procedure "Resume pre-procedure medications except (see comments) Order Comments: Resume all meds Resume pre-procedure diet Keep surgery site clean and dry for 24 hours after procedure Do not swim or play golf for 3 months after procedure Cardiac (2 gm Sodium, Low Fat, Low Cholesterol) Diet; Texture: Regular. Texture Regular. Diabetic: No Discharge Condition - Discharge Condition: GOOD Discharge Activity Discharge Activity: As Tolerated No VTE Prophylaxis given- Patient low risk for VTE; Not ordered during hospitali zation Weight: In general, sudden weight gains or losses should be reported to your pro vider. Cardiac patients should weigh daily and notify their provider for a weig ht gain of 3 pounds per day or 5 pounds per week. Follow-up appointments: To schedule other appointments, call the [facility] at or . You may also make appointments online by going to [email or web address] and follow the Request Appointment quicklink. Take Home Medications These are medications ordered for you by your healthcare provider. Do not take a ny other medications or supplements unless advised by your healthcare provider. Patient's Medications START taking these medications DOXYCYCLINE HYCLATE 100 MG TABLET Take 1 tablet by mouth 2 (two) times daily for 3 days. Indications: s-p loop recorder insertion CONTINUE taking these medications which have NOT CHANGED CANNABIDIOL, CBD, (CANNABIDIOL ORAL) Take by mouth 3 (three) times daily as needed. CETIRIZINE 10 MG TABLET Take 10 mg by mouth every morning. DICYCLOMINE 20 MG TABLET Take 20 mg by mouth 4 (four) times daily. FAMOTIDINE 40 MG TABLET Take 40 mg by mouth 2 (two) times daily. FLUTICASONE PROPIONATE 50 MCG/ACTUATION NASAL SPRAY Use 1 [place] in each nost ril 2 (two) times daily. GABAPENTIN 400 MG CAPSULE TAKE 1 CAPSULE BY MOUTH THREE TIMES A DAY HYDROCHLOROTHIAZIDE 25 MG TABLET Take 1 tablet by mouth daily. HYDROXYZINE 25 MG TABLET Take 25 mg by mouth 2 (two) times daily. MONTELUKAST 10 MG TABLET Take 10 mg by mouth. OMEPRAZOLE 40 MG CAPSULE 40 mg 2 (two) times daily. SERTRALINE 50 MG TABLET Take one tablet by mouth daily VITAMIN D3 10 MCG (400 UNIT) TABLET Take 1 tablet by mouth daily. START taking Modified Medications as Prescribed No medications on file STOP taking these medications CHOLECALCIFEROL, VITAMIN D3, 400 UNIT CHEW Take 1 tablet by mouth daily. COENZYME Q10 100 MG SOFTGEL Take 100 mg by mouth. Medications: Your doctor may prescribe medicine to prevent blood clots. You ma y also have to take medicine to prevent chest pain. Take your medicine as usual after the procedure unless your doctor has told you to stop. Any changes in your medicine's schedule will be explained to you. For questions regarding follow-up instructions call the [facility] Access [facility] r at or For worsening symptoms/changing condition/problems or questions: During normal business hours call the [facility] Cardiac Projection Printer at . At nights, weekends or holidays, call the [facility] hospital key operator at . Ask the key operator to page the Cardiac Cath Fellow who is on-call. Emergency: Go to the closest emergency room or call [phone] Signs and Symptoms of a Problem: Call your doctor if you have any of the follow ing problems: Fever Swelling, pain, redness around the puncture site Foul smell or drainage from the site Odd changes in sensations, like numbness, tingling, coldness or pain in the a rm or leg where the catheter was inserted. If you start Bleeding: Apply pressure to the site. If the bleeding continues, h ave someone call your doctor and make arrangements to see him/her. Please follo w the doctor's directions. Our Goal is to Always Provide You with Very Good Care! We will be mailing you a survey, Please complete and return at your convenience. Thank You TOBACCO AVOIDANCE Exposure to tobacco either from smoking or from second hand (environmental) smok e or smokeless tobacco (snuff) is damaging to your health. This information is to encourage everyone to avoid tobacco exposure. It is recommended that you: ? If you smoke or use smokeless tobacco, we encourage you to quit. ? If you have already quit smoking, continue your good work! ? If you do not smoke or use smokeless tobacco, do not start. ? Avoid secondhand smoke. Additional Resources You may want to contact these organizations for further information on smoking a nd how to quit. [place] [employer], http://www.lungusa.org/stop-smoking/ [place] [employer], http://www.cancer.org/Healthy/StayAwayfromTobacco/index [place] Heart [employer], http://www.heart.org/HEARTORG/GettingHealthy/QuitSmo harvinder/Quit-Smoking_[facility]_001085_SubHomePage.jsp documented in this encounter Plan of Treatment Care Team Description Date Type Specialty James Palumbo MD [address] [place], [place] [phone] Beth Marquez MD [address] [place] [phone] 08/25/2019 Office Visit Psychiatry Pacemaker/Icd, Clc 08/29/2019 Appointment Cardiac Electrophys iology Laurie Hull LPC [address] [place], [place] [phone] 08/31/2019 Office Visit Psychiatry Zoila Rodas AGNP [address] [place] [phone] 09/06/2019 Office Visit Nephrology Kashif Cee MD [address] [place] [phone] 09/14/2019 Office Visit Neurology Eleno Mcnamara MD [address] [place] [phone] 09/15/2019 Office Visit Obstetrics & Gyneco logy Nurse, Pcp Gen Med Nicole Team 10/17/2019 Nurse Visit Internal [place] [address] [place], [place] [phone] 11/09/2019 Office Visit Internal Medicine Sukh Harris MD [address] [facility] [id number] [place], [place] [phone] 11/23/2019 Office Visit Pain Medicine Dieter Zhou MD [address] [facility] [id number] [place] [address] [phone] 01/03/2020 Office Visit Pulmonary Disease Health Maintenance [...] Procedure Name Priority Date/Time Associated Diag nosis PROTHROMBIN TIME / INR Routine 08/18/2019 Psychog enic nonepileptic 12:00 PM CORE MACHINE TENDER seizure documented in this encounter Results * PROTHROMBIN TIME / INR (08/18/2019 12:00 PM CORE MACHINE TENDER) PROTIME PATIENT 12.1 10.1 - 12.6 Seconds [facility] INR 1.1Comment: Normal INR <1.1; [facility] Warfarin Therapeutic range 2.0 [facility] to 3.0 or 2.5 to 3.5, [facility] depending upon the indications. Specimen Blood Performing Organization Address City/State/Zipcode Ph one Number [facility] CLIA: [id number], [address] [place], [place] [address] [facility] documented in this encounter Visit Diagnoses Diagnosis Psychogenic nonepileptic seizure - Prim sushil Status post placement of implantable lo op recorder documented in this encounter Insurance Type Payer Benefit Subscriber ID Effective Phone Address Plan / Dates Group [facility] [id number] 2019-P [address] [facility] [id number] [place] [address] documented as of this encounter
--- OUTSIDE RECORDS SUMMARY | 2019-11-09 10:07 | XMS REPORT | Summary of Care ---
Author Author [facility] Organization [facility] Address Unknown Phone Unavailable Care Team Providers Care Supervisor [employer] Name Role Phone Junior Mark S PCP Reason for Visit * Reason Comments Follow Up Encounter Details Care Team Description Date Type Department Yenifer Rosario, DO [address] [facility] 9th [address] [place], [place] [id number] Follow Up 07/24/2019 Office Visit [facility] Neurology [id number] [facility], [address] [place] [address] Allergies Comments Active Allergy Reactions Severity Noted Date Sulfamethoxazole 07/24/2019 W/Trimethoprim Ciprofloxacin 01/27/2018 Clindamycin/Lincomycin 09/15/2017 Iodine 01/15/2016 Clonazepam Itching, Medium 11/23/2017 Swelling, Rash Nitrofurantoin Rash 01/27/2018 steroid Other Anaphylaxis 01/27/2018 Penicillins 01/15/2016 Other reaction(s): Other - See comments Sulfa Antibiotics Swelling 01/15/2016 documented as of this encounter (statuses as of 07/24/2019) Medications End Date Status Medication Sig Dispensed Refills Start Date Active montelukast (SINGULAIR) Take 10 mg by 0 10 MG tabletIndications: mouth daily. Essential hypertension, Dyslipidemia, Precordial pain, SU (dyspnea on exertion) Active hydrOXYzine (ATARAX) 25 Take 25 mg by 0 MG tabletIndications: mouth 2 times Palpitations daily as needed for Itching. 1 tab AM and 2 tabs PM Active Cetirizine HCl 10 MG CAPS Take by 0 mouth. Active acetaminophen-codeine TAKE ONE (1) 0 08/13/19 1 (TYLENOL #3) 300-30 MG TABLET(S) BY 8 per tablet MOUTH EVERY SIX HOURS NEEDED FOR PAIN. Active hydrochlorothiazide Take 25 mg by 0 (HYDRODIURIL) 25 MG mouth. 8 tablet Active omeprazole (PRILOSEC) 40 Take 40 mg by 0 MG capsule mouth daily. Active famotidine (PEPCID) 40 MG 3 tablet 8 Active dicyclomine (BENTYL) 20 0 MG tablet 9 Active gabapentin (NEURONTIN) TAKE 1 2 01 400 MG capsule CAPSULE BY 9 MOUTH THREE TIMES A DAY Active CANNABIDIOL OR Take by 0 mouth. Active cefUROXime (CEFTIN) 500 Take 500 mg 0 MG tablet by mouth two times daily. Active sertraline (ZOLOFT) 25 MG Take one 0 03/21 tablet tablet by 9 mouth daily Active Coenzyme Q10 (COQ10) 100 Take 100 mg 90 Each 3 0 MG CAPS by mouth 3 0 times daily as needed. 07/24/2019 Discontinued amlodipine (NORVASC) 5 MG Take 5 mg by 0 tabletIndications: mouth daily. Essential hypertension, Dyslipidemia, Precordial pain, SU (dyspnea on exertion) 07/24/2019 Discontinued albuterol (PROVENTIL HFA) Inhale 4 0 108 (90 base) mcg/act Puffs by inhaler mouth two times daily. 07/24/2019 Discontinued Ergocalciferol (VITAMIN Take 50,000 0 D2 OR) Int'l Units by mouth every 7 days. 07/24/2019 Discontinued metformin (GLUCOPHAGE) TAKE 1 TABLET 0 1000 MG tablet BY MOUTH WITH 8 A MEAL TWICE A DAY 07/24/2019 Discontinued (*Duplicate med ication) Famotidine 20 MG CHEW Take by 0 mouth. 07/24/2019 Discontinued cefdinir (OMNICEF) 300 MG Take 300 mg 0 04/21 capsule by mouth. 8 07/24/2019 Discontinued lisinopril (PRINIVIL, TAKE 1 TABLET 1 09/21/19 1 ZESTRIL) 5 MG tablet BY MOUTH 9 EVERY DAY 07/24/2019 Discontinued mirtazapine (REMERON) 15 Take one tab 0 10/19 MG tablet at night for 9 10 days then 2 tablets at night for ten days then 3 tablets at night 07/24/2019 Discontinued (*Alternate the rapy) amitriptyline (ELAVIL) 10 Take 1 Tab by 30 Tab 5 MG tablet mouth 9 nightly. 07/24/2019 Discontinued lorazepam (ATIVAN) 0.5 MG TAKE 1/2 45 Tab 3 tabletIndications: TABLET BY 9 Anxiety disorder, MOUTH 3 TIMES unspecified type A DAY documented as of this encounter (statuses as of 07/24/2019) Active Problems Problem Noted Date Psychogenic nonepileptic seizure 01/27/2018 Essential hypertension 12/23/2017 Precordial pain 11/30/2017 Altered gait 11/30/2017 Episodic altered awareness 02/19/2016 documented as of this encounter (statuses as of 07/24/2019) Immunizations Name Administration Dates Next Due Influenza Quadrivalent 04/17/2019 (RIV4) documented as of this encounter Social History [...] Signs Reading Time Taken Comments Vital Sign 145/90 07/24/2019 2:24 PM LAWN TECHNICIAN Blood Pressure 85 07/24/2019 2:24 PM LAWN TECHNICIAN Pulse - - Temperature - - Respiratory Rate - - Oxygen Saturation - - Inhaled Oxygen Concentration 81.6 kg (180 lb) 07/24/2019 2:24 PM LAWN TECHNICIAN Weight 160 cm (5' 3") 07/24/2019 2:24 PM LAWN TECHNICIAN Height 31.89 07/24/2019 2:24 PM LAWN TECHNICIAN Body Mass Index documented in this encounter Patient Instructions * Patient Instructions* Yenifer Rosario DO - 07/24/2019 2:20 PM LAWN TECHNICIAN Migraine Vitamins CoQ10 - 100mg three times daily TECHNICIAN documented in this encounter Progress Notes * Yenifer Rosario DO - 07/24/2019 2:20 PM LAWN TECHNICIAN Chief Complaint Patient presents with Follow Up HPI: John Nieto is a 64 y.o. year old female with history of pre-DM, HT N, HLD, chronic anxiety/depression and seizure-like episodes that have been dete rmined to be Psychogenic Nonepileptic Events. She has had her EEG 01/2016: showing 51 typical episodes with no epileptiform act ivities. MRI brain 01/2018: [facility] w/wo - normal Past meds: topamax, keppra, Zoloft Currently: Neurontin She had her EMU stay 10/2017: with 50+ typical episodes and no epileptiform activ ity. EKG 11/2017: QTc 416 Interval hx: Patient continues to have seizures all the time. Her whole body feels numb and t ingly. Her arm will start to feel numb and tingling on the right arm. A headache will start and then a seizure will start. She feels like she has been electrocu koko all over. She has about 10-20 seizures per day. Her brain and her heart "spikes" each other now. When her heart skips she gets t his feeling of tightness and she will get a seizure. She has another event right when she mentions this - she pushes on her hear and says her heart and brain is spiking each other. She is still talking. Shakes who le body. She fractured her right foot after a fall recently. She is seeing a car diologist. Her EKG's have not shown anything. Patient has been diagnosed with a lung disease - DIPNECH? Patient continues to have headaches every day. She has nausea all the time but n ot necessarily with headache. +photo/phonophobia. DIAGNOSIS OF CHRONIC MIGRAINE: G43.719 HISTORY OF HEADACHES Number of headache days per month: 30 Number of headache hours per day: 24 hours Symptoms (2 or more): nausea, photo/phonophobia PROPHYLACTIC DRUG (TRIED AND FAILED 2 or more): Topamax, Elavil, Lisinopril, Zol oft Estimated Units to be used: 155 Units Frequency: Every 12 weeks (4-5 times a year) Past Medical History: Diagnosis Date Glaucoma High blood sugar HLD (hyperlipidemia) HTN (hypertension) Kidney stone Sensorineural hearing loss acetaminophen-codeine (TYLENOL #3) 300-30 MG per tablet TAKE ONE (1) TABLET( S) BY MOUTH EVERY SIX HOURS NEEDED FOR PAIN. CANNABIDIOL OR Take by mouth. cefUROXime (CEFTIN) 500 MG tablet Take 500 mg by mouth two times daily. Cetirizine HCl 10 MG CAPS Take by mouth. dicyclomine (BENTYL) 20 MG tablet famotidine (PEPCID) 40 MG tablet gabapentin (NEURONTIN) 400 MG capsule TAKE 1 CAPSULE BY MOUTH THREE TIMES A DAY hydrochlorothiazide (HYDRODIURIL) 25 MG tablet Take 25 mg by mouth. hydrOXYzine (ATARAX) 25 MG tablet Take 25 mg by mouth 2 times daily as neede d for Itching. 1 tab AM and 2 tabs PM montelukast (SINGULAIR) 10 MG tablet Take 10 mg by mouth daily. omeprazole (PRILOSEC) 40 MG capsule Take 40 mg by mouth daily. sertraline (ZOLOFT) 25 MG tablet Take one tablet by mouth daily Review of Systems: all negative except as [...] recent infections Neurologic:See above Vital Signs: Vitals: 07/24/19 1424 BP: 145/90 BP Location: right arm Patient Position: Sitting Cuff Size: regular Pulse: 85 Weight: 180 lb (81.6 kg) Height: 5' 3" (1.6 m) NEUROLOGICAL EXAMINATION: GEN: NAD, intact attention and concentration Fundi: discs sharp on right, patient started having an event and could not exami ne. Patient sensitive to light. Patient's event involved bilateral UE and LE sha harvinder, head shaking, hip shaking with no urinary incontinence. [facility]. Neck: no LAD, supple Mental status: Alert, [...] Triceps 5 5 Wrist Extension 5 5 Finger Flexion 5 5 Iliopsoas 5 5 Quadriceps 5 5 Hamstrings 5 5 Tibialis Anterior - 5 Right foot in AFO Deep Tendon Reflexes toes downgoing bilaterally DTRs Bic Tric BR Pat Right 2+ 2+ 2+ 2+ Left 2+ 2+ 2+ 2+ Sensory Examination Decreased on left arm/leg Coordination Finger to nose testing: intact markell Heel to polk: intact bilaterally Gait and Station Straight Away: Steady with good arm swing bilaterally On Turns: No en bloc turning Posture: normal, not stooped Impression: John Nieto is a 64 y.o. year old female with pre-DM, HTN, HLD, kidney s tones, glaucoma, chronic anxiety/depression and seizure-like episodes that have been determined to be Psychogenic Nonepileptic Seizures. Patient wants to be wor ked up. Patient had a Normal CT head 11/2018. Last MRI brain 01/2018 was normal. E xam is unchanged today. EEG can be repeated. Ultimately, patient's shaking episo loreto are not her main problem. She has migraines daily and Botox may be very bene ficial for these headaches and these shaking episodes. I would prefer not to put patient on Keppra again since this may facilitate her belief that these events are true seizures. 1. Psychogenic nonepileptic seizure 2. Chronic migraine without aura, intractable, without status migrainosus 3. Episodic altered awareness Plan: 1. Botox 2. Neurontin 400mg TID 3. CoQ10 100mg TID Time spent: 40 minutes, > 75% spent in counseling and coordination of care Yenifer Rosario D.O. Special Library Librarian Department of Neurology [facility] TECHNICIAN documented in this encounter Plan of Treatment Care Team Description Date Type Specialty Yenifer Rosario DO [address] [facility] 9th [address] [place], [place] [phone] 11/22/2019 Office Visit Neurology Order Schedule Name Type Priority Associated Diag noses Ordered: 07/24/2019 EEG AWAKE OR DROWSY Neurology Routine Psychogeni c nonepileptic ROUTINE seizure Episodic altered awareness Health Maintenance Due Date Last Done Comments COLON CANCER SCREENIN1956 COLONOSCOPY TETANUS SHOT (ADULT) 02/23/1971 BMI FOLLOW UP PLAN 02/23/1974 HEPATITIS C SCREENING 02/23/1974 HIV SCREENING 02/23/1974 CERVICAL CANCER SCREENING 02/23/1977 3 YEAR FOLLOW UP MAMMOGRAM ANNUAL 08/08/2019 08/08/2018 FLU VACCINE > 6 MONTHS Completed 04/17/2019, , 07/07/2018 (Declined) documented as of this encounter Results Not on filedocumented in this encounter Visit Diagnoses Diagnosis Psychogenic nonepileptic seizure - Prim sushil Chronic migraine without aura, intracta ble, without status migrainosus Episodic altered awareness Transient alteration of awareness documented in this encounter Insurance Type Payer Benefit Subscriber ID Effective Phone Address Plan / Dates Group [facility] [employer] xxxxxxxxxxxx 2019-P [id number] [place] [address] documented as of this encounter
--- OUTSIDE RECORDS SUMMARY | 2019-11-09 10:07 | XMS REPORT | Summary of Care ---
Author Author [facility] - Health Organization [facility] - Health Address Unknown Phone Unavailable Care Team Providers Care Analyst Name Role Phone Fabien Fernandes MD Unavailable Marvin Oconnor MD PCP Ulysses Lazar 25 Unavailable Reason for Visit * Reason Comments Lab Results Encounter Details Care Team Description Date Type Department Marvin Oconnor MD [address] [place] [address] Lab Results 08/17/2019 Telephone [facility] [address] [place] [address] Allergies Comments Active Allergy Reactions Severity Noted Date Azithromycin Itching 01/07/2019 Ciprofloxacin Rash 01/27/2018 Clindamycin Other - See Medium 10/05/2016 comments, Itching Clonazepam Itching, Medium 11/23/2017 Rash, Swelling All steroids-muscle weakness Corticosteroids Other - See 01/20/2016 (Glucocorticoids) comments Iodine Rash 10/05/2016 Lincomycin Rash Medium 09/15/2017 Nitrofurantoin Rash 01/27/2018 Other [place]-3s Anaphylaxis 01/27/2018 States it would be fatal [...] insufficiency Active fluticasone propionate 50 Use 1 Sanborn 16 g 0 mcg/actuation nasal in each 0 sprayIndications: Viral nostril 2 URI with cough (two) times daily. 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 [place] [phone] Provider, Clc Ep Lab Area, Clc Holding 08/18/2019 Appointment Cardiac Electrophys iology James Palumbo MD [address] [place], [place] [address] Beth Marquez MD [address] [place] [phone] 08/25/2019 Office Visit Psychiatry Laurie Hull LPC [address] [place], [place] [phone] 08/31/2019 Office Visit Psychiatry Zoila Rodas, [place] [address] [place] [phone] 09/06/2019 Office Visit Nephrology Kashif Cee MD [address] [place] [address]. [place] [phone] 09/14/2019 Office Visit Neurology Eleno Mcnamara MD [address] [place] [phone] 09/15/2019 Office Visit Obstetrics & Gyneco logy Nurse, Pcp Gen Med [place] Team 10/17/2019 Nurse Visit Internal LyonsMarvin Oconnor MD [address] [place], [place] [address] 11/09/2019 Office Visit Internal Medicine Sukh [place] MD [address] [facility] [address] [place], [place] [address] 11/23/2019 Office Visit Pain Medicine Dieter Zhou MD [address] [place] [address] [id number] [place], [place] [phone] 01/03/2020 Office Visit Pulmonary Disease Health Maintenance [...] Dates Group O [facility] [id number] 2019-P [address] [facility] [id number] [place] [address] documented as of this encounter
--- OUTSIDE RECORDS SUMMARY | 2019-11-09 10:07 | XMS REPORT | Summary of Care ---
Author Author [facility] - Health Organization [facility] - Health Address Unknown Phone Unavailable Care Team Providers Care Prepared Foods Service Team Member Name Role Phone Fabien Fernandes MD Unavailable Mavrin Oconnor MD PCP Ulysses Lazar 25 Unavailable Reason for Referral * Radiology Services (Routine) Referred By Contact Referred To Contact Status Reason Specialty Diagnoses / Procedures Merrill Parks MD [address] [place] [address] New Request Diagnostic Diagnoses Radiology Right foot pain P rocedures XR ANKLE 3+ VW RIGHT * Radiology Services (Routine) Referred By Contact Referred To Contact Status Reason Specialty Diagnoses / Procedures Merrill Parks MD [address] [place] [address] New Request Diagnostic Diagnoses Radiology Right foot pain P rocedures XR FOOT 3+ VW RIGHT Reason for Visit * Radiology Services (Routine) Referred By Contact Referred To Contact Status Reason Specialty Diagnoses / Procedures Merrill Parks MD [address] [place] [address] New Request Diagnostic Diagnoses Radiology Right foot pain P rocedures XR FOOT 3+ VW RIGHT Encounter Details Care Team Description Date Type Department Merrill Parks MD [address] [place] [address] Arrived 08/07/2019 [facility] Encounter [facility] [address] [place] [address] Allergies Comments Active Allergy Reactions Severity Noted Date Azithromycin Itching 01/07/2019 Ciprofloxacin Rash 01/27/2018 Clindamycin Other - See Medium 10/05/2016 comments, Itching Clonazepam Itching, Medium 11/23/2017 Rash, Swelling All steroids-muscle weakness Corticosteroids Other - See 01/20/2016 (Glucocorticoids) comments Iodine Rash 10/05/2016 Lincomycin Rash Medium 09/15/2017 Nitrofurantoin Rash 01/27/2018 Other [place]-3s Anaphylaxis 01/27/2018 States it would be fatal Penicillins Other - See High 01/20/2016 comments, Shortness of Breath Shellfish Derived Other - See 03/18/2019 comments BActrim Rash Sulfamethizole Rash 07/05/2019 New string of tetanus- went to ER , medication for throat closing up Tetanus Vaccines And Swelling High 6 Toxoid documented as of this encounter (statuses as of 08/08/2019) Medications End Date Status Medication Sig Dispensed [...] as of this encounter (statuses as of 08/08/2019) Active Problems Problem Noted Date Chronic lumbar radiculopathy 01/12/2019 Overview: Added automatically from request for josé luis silvestre [id number] 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 [place], [place] [phone] 08/21/2019 Office Visit Internal Medicine Laurie Hull LPC [address] [place], [place] [phone] 08/31/2019 Office Visit Psychiatry Zoila Rodas AGNP [address] [place] [phone] 09/06/2019 Office Visit Nephrology Beth Marquez MD [address] [place] [phone] 09/07/2019 Office Visit Psychiatry Kashif Cee MD [address] [place] [phone] 09/14/2019 Office Visit Neurology Eleno Mcnamara MD [address] [place] [address] 09/15/2019 Office Visit Obstetrics & Gyneco Sukh Rocha MD [address] [place] [address] [address] [place], [place] [phone] 11/23/2019 Office Visit Pain Medicine Dieter Zhou MD [address] [facility] [address] [place] [address] [phone] 01/03/2020 Office Visit Pulmonary Disease Health Maintenance [...] Procedure Name Priority Date/Time Associated Diag nosis XR FOOT 3+ VW RIGHT Routine 08/07/2019 Right mike t pain 1:50 PM GIFT BASKET PACKER XR ANKLE 3+ VW RIGHT Routine 08/07/2019 Right mike t pain 1:50 PM GIFT BASKET PACKER documented in this encounter Results * XR ANKLE 3+ VW RIGHT (08/07/2019 1:50 PM GIFT BASKET PACKER) Specimen Impressions Performed At No acute bony abnormality. PACS/VR/DOSE Mild osteoarthrosis. Narrative Performed At EXAM: PACS/VR/DOSE XR FOOT 3+ VW RIGHT, EXAM: XR ANKLE 3+ VW RIGHT HISTORY: pain COMPARISON: 11/16/2017 FINDINGS: Imaging of the right foot and ankle was obtained. Osteopenia is noted. Joint spaces are maintained. Calcaneal enthesophytes are noted. Mild dorsal talonavicular osteophytosis is present. The ankle mortise is congruent. Procedure Note [facility], Radiant Results Inft User - 08/07/2019 3:14 PM GIFT BASKET PACKER EXAM: XR FOOT 3+ VW RIGHT, EXAM: XR ANKLE 3+ VW RIGHT HISTORY: pain COMPARISON: 11/16/2017 FINDINGS: Imaging of the right foot and ankle was obtained. Osteopenia is noted. Joint spaces are maintained. Calcaneal enthesophytes are noted. Mild dorsal talonavicular osteophytosis is present. The ankle mortise is congruent. IMPRESSION No acute bony abnormality. Mild osteoarthrosis. Performing Organization Address City/State/Zipcode Ph one Number PACS/VR/DOSE * XR FOOT 3+ VW RIGHT (08/07/2019 1:50 PM GIFT BASKET PACKER) Specimen Impressions Performed At No acute bony abnormality. PACS/VR/DOSE Mild osteoarthrosis. Narrative Performed At EXAM: PACS/VR/DOSE XR FOOT 3+ VW RIGHT, EXAM: XR ANKLE 3+ VW RIGHT HISTORY: pain COMPARISON: 11/16/2017 FINDINGS: Imaging of the right foot and ankle was obtained. Osteopenia is noted. Joint spaces are maintained. Calcaneal enthesophytes are noted. Mild dorsal talonavicular osteophytosis is present. The ankle mortise is congruent. Procedure Note [facility], Radiant Results Inft User - 08/07/2019 3:14 PM GIFT BASKET PACKER EXAM: XR FOOT 3+ VW RIGHT, EXAM: XR ANKLE 3+ VW RIGHT HISTORY: pain COMPARISON: 11/16/2017 FINDINGS: Imaging of the right foot and ankle was obtained. Osteopenia is noted. Joint spaces are maintained. Calcaneal enthesophytes are noted. Mild dorsal talonavicular osteophytosis is present. The ankle mortise is congruent. IMPRESSION No acute bony abnormality. Mild osteoarthrosis. Performing Organization Address [facility] one Number PACS/VR/DOSE documented in this encounter Visit Diagnoses Diagnosis Right foot pain Pain in limb documented in this encounter Insurance Type Payer Benefit Subscriber ID Effective Phone Address Plan / Dates Group [facility] [id number] 2019-P [address] [facility] [id number] [place] [address] documented as of this encounter
--- OUTSIDE RECORDS SUMMARY | 2019-11-09 10:07 | XMS REPORT | Summary of Care ---
Author Author [facility] - Health Organization [facility] - Health Address Unknown Phone Unavailable Care Team Providers Care Forensic Structural Engineer Name Role Phone Fabien Fernandes MD Unavailable Marvin Oconnor MD PCP Ulysses Lazar 25 Unavailable Reason for Referral * Radiology Services (Routine) Referred By Contact Referred To Contact Status Reason Specialty Diagnoses / Procedures Merrill Parks MD [address] [place] [address] New Request Diagnostic Diagnoses Radiology Right foot pain P rocedures XR ANKLE 3+ VW RIGHT * Radiology Services (Routine) Referred By Contact Referred To Contact Status Reason Specialty Diagnoses / Procedures Merrill Parks MD [address] [place] [address] New Request Diagnostic Diagnoses Radiology Right foot pain P rocedures XR FOOT 3+ VW RIGHT Reason for Visit * Reason Comments New Patient right ankle pain * (Routine) Referred By Contact Referred To Contact Status Reason Specialty Diagnoses / Procedures Marvin Oconnor MD [address] [place] [address] [address] Closed Orthopedic Diagnoses Surgery Chronic pain of right ankle P rocedures CONSULT/REFERRAL ORTHOPAEDIC SURGERY Encounter Details Care Team Description Date Type Department Merrill Parks MD [address] [place] [address] Right foot pain (Primary Dx) 08/07/2019 Office Visit [address] [place] [address] Allergies Comments Active Allergy Reactions Severity Noted Date Azithromycin Itching 01/07/2019 Ciprofloxacin Rash 01/27/2018 Clindamycin Other - See Medium 10/05/2016 comments, Itching Clonazepam Itching, Medium 11/23/2017 Rash, Swelling All steroids-muscle weakness Corticosteroids Other - See 01/20/2016 (Glucocorticoids) comments Iodine Rash 10/05/2016 Lincomycin Rash Medium 09/15/2017 Nitrofurantoin Rash 01/27/2018 Other [employer] Anaphylaxis 01/27/2018 States it would be fatal [...] Added automatically from request for ordonez konrad [id number] 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 01/12/2019 Overview: Added automatically from request for ordonez konrad [id number] Obesity (BMI 30-39.9) 12/16/2018 Recurrent UTI 05/17/2018 [...] Added automatically from request for ordonez beckyery [id number] documented as of this encounter (statuses as [...] Comments Vital Sign 133/82 08/07/2019 1:19 PM INSIDE FINISHER Blood Pressure 80 08/07/2019 1:19 PM INSIDE FINISHER Pulse 36.3 C (97.4 F) 08/07/2019 1:19 PM INSIDE FINISHER Temperature - - Respiratory Rate - - Oxygen Saturation - - Inhaled Oxygen Concentration 82.6 kg (182 lb) 08/07/2019 1:19 PM INSIDE FINISHER Weight 154.9 cm (5' 1") 08/07/2019 1:19 PM INSIDE FINISHER Height 34.39 08/07/2019 1:19 PM INSIDE FINISHER Body Mass Index documented in this encounter Progress Notes * Adebayo Vickers MD - 08/07/2019 1:20 PM INSIDE FINISHER [facility] Note 08/07/2019 14:06 CC: [...] Right 01/23/2019 Surgeon: Sukh Harris MD; Location: [facility] RADIOFREQUENCY THERMOCOAGULATION N/A 02/15/2019 Surgeon: Sukh Harris MD; Location: [facility] Location TONSILLECTOMY Medications: Current Outpatient Medications [...] steroids-muscle weakness Iodine Rash Nitrofurantoin Rash Other [employer] Anaphylaxis Shellfish Derived Other - See comments [...] smoking cessation and proper diet as indicated DE FINISHER documented in this encounter Plan of Treatment Care Team Description Date Type Specialty Marvin Oconnor MD [address] [place], [place] [phone] 08/21/2019 Office Visit Internal Medicine Laurie Hull LPC [address] [place] [address] 08/31/2019 Office Visit Psychiatry Zoila Rodas AGNP [address] [place] [phone] 09/06/2019 Office Visit Nephrology Beth Marquez MD [address] [place] [phone] 09/07/2019 Office Visit Psychiatry Kashif Cee MD [address] [place] [phone] 09/14/2019 Office Visit Neurology Eleno Mcnamara MD [address] [place], [place] [phone] 09/15/2019 Office Visit Obstetrics & Gyneco Sukh Rocha MD [address] [facility] [id number] [place], [place] [phone] 11/23/2019 Office Visit Pain Medicine Dieter Zhou MD [address] [facility] [id number] [place], [place] [phone] 01/03/2020 Office Visit Pulmonary Disease Date/Time Name Type Priority Associated Diag noses 08/07/2019 1:50 PM INSIDE FINISHER XR FOOT 3+ VW RIGHT IMAGING Routine Right foot pain 08/07/2019 1:50 PM INSIDE FINISHER XR ANKLE 3+ VW RIGHT IMAGING Routine [...] Phone Address Plan / Dates Group [facility] [id number] 2019-P [address] [facility] [id number] [place] [address] documented as of this encounter
--- OUTSIDE RECORDS SUMMARY | 2019-11-09 10:07 | XMS REPORT | Summary of Care ---
Author Author [facility] - Health Organization [facility] - Health Address Unknown Phone Unavailable Care Team Providers Care Suspect Artist Name Role Phone Fabien Fernandes MD Unavailable Marvin Oconnor MD PCP Ulysses Lazar 25 Unavailable Reason for Referral * Radiology Services (STAT) Referred By Contact Referred To Contact Status Reason Specialty Diagnoses / Procedures Jennifer Warner MD [address] [address] New Request Diagnostic Diagnoses Radiology Lower abdominal pain P rocedures Chest 1 View * MRI/CAT Scan (STAT) Referred By Contact Referred To Contact Status Reason Specialty Diagnoses / Procedures Jennifer Warner MD [address] [address] New Request Diagnostic Diagnoses Radiology Lower abdominal pain P rocedures CT Abdomen/Pelvis W/O Contrast Reason for Visit * Reason Comments Urinary Problem * Auth/Cert Referred By Contact Referred To Contact Status Reason Specialty Diagnoses / Procedures [facility] Emergency Dept [address] [place] [phone] Emergency Medicine Encounter Details Care Team Description Date Type Department Jennifer Warner MD [address] [address] Lower abdominal pain (Primary Dx); Upper respiratory tract infection, unspecified type; Mesenteric adenitis 08/13/2019 Emergency [facility] Depar tment [address] [place] [address] Allergies Comments Active Allergy Reactions Severity Noted Date Azithromycin Itching 01/07/2019 Ciprofloxacin Rash 01/27/2018 Clindamycin Other - See Medium 10/05/2016 comments, Itching Clonazepam Itching, Medium 11/23/2017 Rash, Swelling All steroids-muscle weakness Corticosteroids Other - See 01/20/2016 (Glucocorticoids) comments Iodine Rash 10/05/2016 Lincomycin Rash Medium 09/15/2017 Nitrofurantoin Rash 01/27/2018 Other Mark-3s Anaphylaxis 01/27/2018 States it would be fatal Penicillins Other - See High 01/20/2016 comments, Shortness of Breath Shellfish Derived Other - See 03/18/2019 comments BActrim Rash Sulfamethizole Rash 07/05/2019 New string of tetanus- went to ER , medication for throat closing up Tetanus Vaccines And Swelling High 6 Toxoid documented as of this encounter (statuses as of 08/13/2019) Medications End Date Status Medication Sig Dispensed [...] as of this encounter (statuses as of 08/13/2019) Active Problems Problem Noted Date Chronic lumbar radiculopathy 01/12/2019 Overview: Added automatically from request for josé luis silvestre [id number] 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 01/12/2019 Overview: Added automatically from request for josé luis silvestre [id number] Obesity (BMI 30-39.9) 12/16/2018 Recurrent UTI 05/17/2018 [...] as of this encounter (statuses as of 08/13/2019) Resolved Problems Problem Noted Date Resolved Date Spondylosis of lumbar region without myelopathy or radiculo johanna 01/12/2019 01/16/2019 Overview: Added automatically from request for josé luis silvestre [id number] documented as of this encounter (statuses as of 08/13/2019) Immunizations Name Administration Dates Next Due Influenza [...] Signs Reading Time Taken Comments Vital Sign 138/87 08/13/2019 10:15 PM INSIDE SALES ADMINISTRATOR Blood Pressure 96 08/13/2019 10:15 PM INSIDE SALES ADMINISTRATOR Pulse 36.8 C (98.3 F) 08/13/2019 6:50 PM INSIDE SALES ADMINISTRATOR Temperature 158 08/13/2019 10:15 PM INSIDE SALES ADMINISTRATOR Respiratory Rate 96% 08/13/2019 10:15 PM INSIDE SALES ADMINISTRATOR Oxygen Saturation - - Inhaled Oxygen Concentration 90.7 kg (200 lb) 08/13/2019 6:50 PM INSIDE SALES ADMINISTRATOR Weight - - Height 37.79 08/07/2019 1:19 PM INSIDE SALES ADMINISTRATOR Body Mass Index documented in this encounter Discharge Instructions * Attachments The following attachments cannot be sent through Care Everywhere.* Adenitis, Mesenteric (Kyrgyz) * URI, Viral, No Abx (Adult) (Kyrgyz) documented in this encounter Plan of Treatment Care Team Description Date Type Specialty Boom Santiago MD [address] [place] [address]. [place] [address] Provider, Chris Ep Lab Area, [facility] 08/18/2019 Appointment Cardiac Electrophys iology Marvin Oconnor MD [address] [place] [address] 08/21/2019 Office Visit Internal Medicine Laurie Hull LPC [address] [place] [address] 08/31/2019 Office Visit Psychiatry Zoila Rodas AGNP [address] [place] [address] 09/06/2019 Office Visit Nephrology Beth Marquez MD [address] [place] [phone] 09/07/2019 Office Visit Psychiatry Kashif Cee MD [address] [place] [phone] 09/14/2019 Office Visit Neurology Eleno Mcnamara MD [address] [place] [phone] 09/15/2019 Office Visit Obstetrics & Gyneco logy Sukh Harris MD [address] [place] [address] [id number] [place], [place] [phone] 11/23/2019 Office Visit Pain Medicine Dieter Zhou MD [address] [place] [address] [id number] [place], [place] [phone] 01/03/2020 Office Visit Pulmonary Disease Health Maintenance [...] Associated Diag nosis CBC WITH DIFFERENTIAL STAT 08/13/2019 Lower ab dominal pain 9:02 PM INSIDE SALES ADMINISTRATOR CBC WITH DIFFERENTIAL Routine 08/13/2019 Lower ab dominal pain 9:02 PM INSIDE SALES ADMINISTRATOR BASIC METABOLIC PANEL STAT 08/13/2019 Lower ab dominal pain (NA, K, CL, CO2, GLUCOSE, 9:02 PM INSIDE SALES ADMINISTRATOR BUN, CREATININE, CA) HEPATIC FUNCTION PANEL STAT 08/13/2019 Lower a bdominal pain (15616) (ALB,T.PRO,BILI 9:02 PM INSIDE SALES ADMINISTRATOR T,BU/BC,ALT,AST,ALK PHOS) TROPONIN I STAT 08/13/2019 Lower abdominal pain 9:02 PM INSIDE SALES ADMINISTRATOR LIPASE STAT 08/13/2019 Lower abdominal pain 9:02 PM INSIDE SALES ADMINISTRATOR CT ABDOMEN PELVIS WO STAT 08/13/2019 Lower abd ominal pain CONTRAST 8:19 PM INSIDE SALES ADMINISTRATOR XR CHEST 1 VW STAT 08/13/2019 Lower abdominal pain 8:12 PM INSIDE SALES ADMINISTRATOR URINALYSIS STAT 08/13/2019 Lower abdominal pain 7:56 PM INSIDE SALES ADMINISTRATOR EKG-12 LEAD STAT 08/13/2019 7:48 PM INSIDE SALES ADMINISTRATOR documented in this encounter Results * CBC WITH DIFFERENTIAL (08/13/2019 9:02 PM INSIDE SALES ADMINISTRATOR) WBC 6.09 4.30 - 11.10 [facility] 10*3/L [facility] RBC 4.96 3.93 - 5.25 10*6/L [facility] HGB 14.1 11.6 - 15.0 g/dL [facility] HCT 42.5 35.7 - 45.2 % [facility] MCV 85.7 80.6 - 95.5 fL [facility] MCH 28.4 25.9 - 32.8 pg [facility] MCHC 33.2 31.6 - 35.1 g/dL [facility] RDW-SD 41.0 39.0 - 49.9 fL [facility] RDW-CV 13.3 12.0 - 15.5 % [facility] PLT 205 166 - 358 10*3/L [facility] TORY [facility] MPV 11.0 9.5 - 12.9 fL [facility] NRBC/100 WBC 0.0 0.0 - 10.0 /100 WBCs [facility] NRBC x10^3 <0.01 10*3/L [facility] GRAN MAT (NEUT) 57.1 % [facility] Y % [facility] IMM GRAN % 0.30 % [facility] LYMPH % 31.0 % [facility] MONO % 8.5 % [facility] EOS % 2.6 % [facility] BASO % 0.5 % [facility] GRAN MAT 3.47 1.88 - 7.09 10*3/uL [facility] x10^3(ANC) [facility] IMM GRAN x10^3 <0.03 0.00 - 0.06 10*3/uL [facility] LYMPH x10^3 1.89 1.32 - 3.29 10*3/uL [facility] MONO x10^3 0.52 0.33 - 0.92 10*3/uL [facility] EOS x10^3 0.16 0.03 - 0.39 10*3/uL [facility] BASO x10^3 0.03 0.01 - 0.07 10*3/uL [facility] Specimen Blood - VENOUS Performing Organization Address City/State/Zipcode Ph one Number [facility] CLIA: [id number], [address] [place], [place] [address] [facility] * Troponin I (08/13/2019 9:02 PM INSIDE SALES ADMINISTRATOR) TROPONIN I 0.001 <=0.034 ng/mL [facility] Specimen Blood - VENOUS Narrative Performed At Equal or Less than 0.034 ng/ml---Normal [facility] Note: Cardiac troponin begins to rise 3-4 hours after the onset of ischemia. [facility] Repeat in 4-6 hours if the sample was d rawn within 3-4 hours of the onset of the CAMPUS symptom and found normal. Between 0.035 and 0.120 ng/mL--- Border line. Questionable myocardial injury or necrosis Note: Serial measurement may be necessa ry to confirm or exclude the diagnosis of myocardial injury or necrosis; Clinical correlation (symptoms, EKGs, imaging studies, and others) required; Repeat i n 4-6 hours if clinically indicated. Equal or Higher than 0.121 ng/mL---Abno rmal. Myocardial Injury or Necrosis Likely Biotin has been reported to cause a neg ative bias, interpret results relative to patient's use of biotin. Performing Organization Address [facility] one Number [facility] CLIA: [id number], [address] [place] [address] [address] [facility] * Lipase Serum (08/13/2019 9:02 PM INSIDE SALES ADMINISTRATOR) LIPASE 205 0 - 220 U/L [facility] Specimen Blood - VENOUS Performing Organization Address [facility] one Number [facility] CLIA: [id number], [address] [place] [address] [address] [facility] * Hepatic Function Panel (ALB, T.PRO, BILI T, BU/BC, ALT, AST, ALK PHOS) (08/13/2019 9:02 PM INSIDE SALES ADMINISTRATOR) TOTAL BILI 0.5 0.1 - 1.1 mg/dL [facility] Y [facility] BILI UNCON 0.4 0.1 - 1.1 mg/dL [facility] BILI CONJ 0.0 0.0 - 0.3 mg/dL [facility] T PROTEIN 7.2 6.3 - 8.2 g/dL [facility] ALBUMIN 4.7 3.5 - 5.0 g/dL [facility] ALK PHOS 74 34 - 122 U/L [facility] ALTv 31 5 - 35 U/L [facility] AST(SGOT) 28 13 - 40 U/L [facility] Specimen Blood - VENOUS Performing Organization Address City/State/Zipcode Ph one Number [facility] CLIA: [id number], [address] [facility] [place] [address] [address] [facility] * Basic Metabolic Panel (NA, K, CL, CO2, GLUCOSE, BUN, CREATININE, CA) (08/13/2019 9:02 PM INSIDE SALES ADMINISTRATOR) NA 142 135 - 145 mmol/L [facility] RY [facility] K 3.5 3.5 - 5.0 mmol/L [facility] RY [facility] CL 103 98 - 108 mmol/L [facility] LABORATOR Y [facility] CO2 TOTAL 27 23 - 31 mmol/L [facility] AGAP 12 2 - 16 [facility] BUN 20 7 - 23 mg/dL [facility] GLUCOSE 99 70 - 110 mg/dL [facility] CREATININE 0.64 0.50 - 1.04 mg/dL [facility] CALCIUM 9.3 8.6 - 10.6 mg/dL [facility] eGFR 93.7 mL/min/1.73m2 [facility] Calculation [facility] ([facility]) eGFR 113.6 mL/min/1.73m2 [facility] Calculation [facility] ([facility]) Specimen Blood - VENOUS Narrative Performed At [facility] of Glomerular Filtration Rate (GFR) and S taging of Kidney Disease* [facility] + + +------ + [facility] | GFR (mL/min/1.73 m2) | With Kidney Damage | [facility] Kidney Damage [place] + + -------+ + | >90 | [...] in imaging tests). Performing Organization Address City/State/Zipcode Ph one Number [facility] CLIA: [id number], [address] [address] [facility] * CT Abdomen/Pelvis W/O Contrast (08/13/2019 8:19 PM INSIDE SALES ADMINISTRATOR) Specimen Impressions Performed At Findings suggest mesenteric panniculitis. No evidence of hydronephrosis or PACS/VR/DOSE nephrolithiasis. Prior hysterectomy, cholecystectomy, an d appendectomy. A 1.0 cm hamartoma lung nodule (hamarto ma) is seen in the right lung base. This is a benign finding and no follow- up is recommended. Narrative Performed At EXAM: CT ABDOMEN AND PELVIS WITHOUT CONTRAST PACS/VR /DOSE HISTORY: 64-year-old female with flank pain, stone disease suspected. COMPARISON: None. DOSE: Total exam DLP 1180 mGy-cm TECHNIQUE AND FINDINGS: Contiguous axia l imaging was performed without contrast. Coronal and sagittal reconstr uctions were obtained. FINDINGS: A nodule in the right middle lobe is pa rtially visualized (3:1), measuring 0.6 cm. Another nodule in the left lung base has fat attenuation and measures 1.0 cm (3:12), likely a hamart mell. There is no evidence of pleural pericardial effusion. Limited evaluation of the solid organs in the absence of IV contrast. The liver, spleen, adrenals, and the pancre as appear normal. Prior cholecystectomy. Bilaterally the kidney s show no evidence of hydronephrosis or nephrolithiasis. No evidence of free fluid, air, or lymp hadenopathy seen in the abdomen and pelvis. Mesenteric fat stranding and sm all mesenteric lymph nodes best seen on the coronal images (601:55) suggest mesenteric panniculitis. No dilated bowel loops. Prior appendect bert. No evidence of diverticulitis. The urinary bladder is collapsed and un remarkable. Prior hysterectomy. No adnexal masses are seen. No focal lesions are seen in the bones. Procedure Note [facility], Radiant Results Inft User - 08/13/2019 9:04 PM INSIDE SALES ADMINISTRATOR EXAM: CT ABDOMEN AND PELVIS WITHOUT CONTRAST HISTORY: 64-year-old female with flank pain, stone disease suspected. COMPARISON: None. DOSE: Total exam DLP 1180 mGy-cm TECHNIQUE AND FINDINGS: Contiguous axial imaging was performed without contrast. Coronal and sagittal reconstructions were obtained. FINDINGS: A nodule in the right middle lobe is partially visualized (3:1), measuring 0.6 cm. Another nodule in the left lung base has fat attenuation and measures 1.0 cm (3:12), likely a hamartoma. There is no evidence of pleural pericardial effusion. Limited evaluation of the solid organs in the absence of IV contrast. The liver, spleen, adrenals, and the pancreas appear normal. Prior cholecystectomy. Bilaterally the kidneys show no evidence of hydronephrosis or nephrolithiasis. No evidence of free fluid, air, or lymphadenopathy seen in the abdomen and pelvis. Mesenteric fat stranding and small mesenteric lymph nodes best seen on the coronal images (601:55) suggest mesenteric panniculitis. No dilated bowel loops. Prior appendectomy. No evidence of diverticulitis. The urinary bladder is collapsed and unremarkable. Prior hysterectomy. No adnexal masses are seen. No focal lesions are seen in the bones. IMPRESSION Findings suggest mesenteric panniculitis. No evidence of hydronephrosis or nephrolithiasis. Prior hysterectomy, cholecystectomy, and appendectomy. A 1.0 cm hamartoma lung nodule (hamartoma) is seen in the right lung base. This is a benign finding and no follow-up is recommended. Performing Organization Address City/State/Zipcomt Ph one Number PACS/VR/DOSE * Chest 1 View (08/13/2019 8:12 PM INSIDE SALES ADMINISTRATOR) Specimen Impressions Performed At Impression: PACS/VR/DOSE Prominent cardiac silhouette with mild perihilar vascular congestion. No evidence of an acute infiltrate, ple ural effusion, or pneumothorax. Narrative Performed At Exam: XR CHEST 1 VW PACS/VR/DOSE Clinical History: cough Comparison: July 10, 2019 Findings: Single frontal view of the chest is com pared to the prior study. The cardiac silhouette is prominent and the re is mild perihilar vascular congestion. No evidence of an acute inf iltrate, pleural effusion, or pneumothorax. The trachea is in midline . The regional bones and the visualized upper abdomen are unremarkab le. Procedure Note [facility], Radiant Results Inft User - 08/13/2019 8:36 PM INSIDE SALES ADMINISTRATOR Exam: XR CHEST 1 VW Clinical History: cough Comparison: July 10, 2019 Findings: Single frontal view of the chest is compared to the prior study. The cardiac silhouette is prominent and there is mild perihilar vascular congestion. No evidence of an acute infiltrate, pleural effusion, or pneumothorax. The trachea is in midline. The regional bones and the visualized upper abdomen are unremarkable. IMPRESSION Impression: Prominent cardiac silhouette with mild perihilar vascular congestion. No evidence of an acute infiltrate, pleural effusion, or pneumothorax. Performing Organization Address City/[facility] Ph one Number PACS/VR/DOSE * Urinalysis (08/13/2019 7:56 PM INSIDE SALES ADMINISTRATOR) APPEARANCE Clear Clear [facility] COLOR Yellow Yellow [facility] PH 5.0 4.8 - 8.0 [facility] SP GRAVITY 1.027 1.003 - 1.030 [facility] GLU U QUAL Normal Normal [facility] BLOOD Negative Negative [facility] KETONES Negative Negative [facility] PROTEIN Negative Negative [facility] UROBILIN Normal Normal [facility] BILIRUBIN Negative Negative [facility] NITRITE Negative Negative [facility] LEUK MICHAEL Negative Negative [facility] RBC/HPF 2 0 - 3 HPF [facility] WBC/HPF 6 (H) 0 - 5 HPF [facility] BACTERIA Few (A) Negative [facility] MUCOUS Slight (A) Negative LPF [facility] AMORPHOUS Rare Rare HPF [facility] SQ EPITH 2 <=2 HPF [facility] Specimen Urine - URINE, CATHETERIZED Performing Organization Address City/[facility] Ph one Number [facility] CLIA: [id number], [address] [place], [place] [address] [facility] documented in this encounter Visit Diagnoses Diagnosis Lower abdominal pain - Primary Abdominal pain, other specified site Upper respiratory tract infection, unsp ecified type Mesenteric adenitis Nonspecific mesenteric lymphadenitis documented in this encounter Administered Medications Action Date Dose Rate Site Medication Order MAR Action 08/13/2019 9:07 PM INSIDE SALES ADMINISTRATOR 30 mg ketorolac (TORADOL) injection 30 mg Given 30 mg, Slow IV Push, ONCE, 1 dose, 08/13/19 at 2000, JAMES, membership correspondent approving Restricted medication: JENNIFER WARNER documented in this encounter Insurance Type Payer Benefit Subscriber ID Effective Phone Address Plan / Dates Group [facility] [id number] 2019-P [address] [facility] [place] [address] [place] [address] documented as of this encounter"
--- OUTSIDE RECORDS SUMMARY | 2019-11-09 10:07 | XMS REPORT | Summary of Care ---
Author Author [facility] - Health Organization [facility] - Health Address Unknown Phone Unavailable Care Team Providers Care Padded Products Inspector Trimmer Name Role Phone Fabien Fernandes MD Unavailable Marvin Oconnor MD PCP Ulysses Lazar 25 Unavailable Reason for Referral * Radiology Services (Routine) Referred By Contact Referred To Contact Status Reason Specialty Diagnoses / Procedures Marvin Oconnor MD [facility] [address] [address] New Request Diagnostic Diagnoses Radiology Breast cancer screening by mammogram P rocedures BI SCREENING MAMMOGRAM BILATERAL Reason for Visit * Reason Comments Cough x 4 days WHEEZING Encounter Details Care Team Description Date Type Department Marvin Oconnor MD [facility] [address] [address] Viral URI with cough (Primary Dx); Goiter; Mesenteric panniculitis; Breast cancer screening by mammogram 08/16/2019 Office Visit [facility] [address], [address] [place] [address] Allergies Comments Active Allergy Reactions Severity Noted Date Azithromycin Itching 01/07/2019 Ciprofloxacin Rash 01/27/2018 Clindamycin Other - See Medium 10/05/2016 comments, Itching Clonazepam Itching, Medium 11/23/2017 Rash, Swelling All steroids-muscle weakness Corticosteroids Other - See 01/20/2016 (Glucocorticoids) comments Iodine Rash 10/05/2016 Lincomycin Rash Medium 09/15/2017 Nitrofurantoin Rash 01/27/2018 Other [place]-3s Anaphylaxis 01/27/2018 States it would be fatal [...] insufficiency Active fluticasone propionate 50 Use 1 [place] 16 g 0 mcg/actuation nasal in each 0 sprayIndications: Viral nostril 2 URI with cough (two) times daily. 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 01/12/2019 Overview: Added automatically from request for ordonez rgery [id number] Obesity (BMI 30-39.9) 12/16/2018 Recurrent UTI 05/17/2018 [...] Added automatically from request for ordonez rgery [id number] documented as of this encounter (statuses as [...] Comments Vital Sign 126/77 08/16/2019 1:[address] JUDGE Blood Pressure 92 08/16/2019 1:[address] JUDGE Pulse 36.9 C (98.4 F) 08/16/2019 1:[address] JUDGE Temperature 18 08/16/2019 1:[address] JUDGE Respiratory Rate 95% 08/16/2019 1:[address] JUDGE RA Oxygen Saturation - - Inhaled Oxygen Concentration 81.2 kg (179 lb) 08/16/2019 1:[address] JUDGE Weight 154.9 cm (5' 1") 08/16/2019 1:[address] JUDGE Height 33.82 08/16/2019 1:[address] JUDGE Body Mass Index documented in this encounter Patient Instructions * Patient Instructions* Marvin Oconnor MD - 08/16/2019 1:[address] JUDGE Please follow up with GI for the [...] get the mammogram and bone density scan. LLATE COURT JUDGE documented in this encounter Progress Notes * Marvin Oconnor MD - 08/16/2019 1:[address] JUDGE [facility] Clinic Note CC: cough HPI: John [...] propionate 50 mcg/actuation nasal spray Use 1 [place] in each nost ril 2 (two) times [...] Right 01/23/2019 Surgeon: Sukh Harris MD; Location: [place] [facility] RADIOFREQUENCY THERMOCOAGULATION N/A 02/15/2019 Surgeon: Sukh Harris MD; Location: [place] [facility] Location TONSILLECTOMY Family Hx: Family History [...] further work up Health maintenance - flu /28/19 -shingrix07/26/19, 2nd shot pending - allergic to Tdap - Colonoscopydone, 08/2016 Dr. Kianna Hoyt, found hemorrhoids and polyps, plan to repeat in 5 years - pap smear done 08/02/18 - mammogram due, ordered today Follow-up: 3 months Marvin Oconnor MD LLATE COURT JUDGE documented in this encounter Plan of Treatment Care Team Description Date Type Specialty Boom Santiago MD [address] [place] [phone] Provider, [facility], [facility] 08/18/2019 Appointment Cardiac Electrophys iology James Palumbo MD 400 [facility] [place] [address] Beth Marquez MD [address] [place] [phone] 08/25/2019 Office Visit Psychiatry Laurie Hull LPC [address] [facility] [place] [address] 08/31/2019 Office Visit Psychiatry Zoila Rodas, [place] [address] [place] [phone] 09/06/2019 Office Visit Nephrology Kashif Cee MD [address] [place] [address]. [place] [phone] 09/14/2019 Office Visit Neurology Eleno Mcnamara MD [address] [place] [phone] 09/15/2019 Office Visit Obstetrics & Gyneco logy Nurse, Pcp Gen Med Nicole Team 10/17/2019 Nurse [place] [address] [facility] [address] [place], [place] [phone] 11/09/2019 Office Visit Internal Medicine Sukh Harris MD [address] [facility] [id number] [place], [place] [phone] 11/23/2019 Office Visit Pain Medicine Dieter Zhou MD [address] [facility] [id number] [place], [place] [phone] 01/03/2020 Office Visit Pulmonary Disease Order Schedule [...] * THYROID STIMULATING HORMONE (08/13/2019 9:[address] JUDGE) TSH 1.93Comment: Biotin has been 0.45 - 4.70 mIU/L [facility] reported to cause a negative [facility] bias, interpret results [facility] relative to patient's use of biotin. Specimen Blood - VENOUS Performing Organization Address City/State/Zipcode Ph one Number [facility] CLIA: [id number], [address] [id number] 98 [facility] documented in this encounter Visit Diagnoses Diagnosis Viral URI with cough - Primary Acute upper respiratory infections of u nspecified site Goiter Goiter, unspecified Mesenteric panniculitis Sclerosing mesenteritis Breast cancer screening by mammogram documented in this encounter Insurance Type Payer Benefit Subscriber ID Effective Phone Address Plan / Dates Group [facility] [id number] 2019-P [address] [facility] [id number] [place] [address] (Home) [place] [address] documented as of this encounter
--- OUTSIDE RECORDS SUMMARY | 2019-11-09 10:07 | XMS REPORT | Summary of Care ---
Author Author [facility] - Health Organization [facility] - Health Address Unknown Phone Unavailable Care Team Providers Care Events Associate Name Role Phone Fabien Fernandes MD Unavailable Marvin Oconnor MD PCP [place] Team 25 Unavailable Reason for Referral * (Routine) Referred By Contact Referred To Contact Status Reason Specialty Diagnoses / Procedures Boom Santiago MD [address] [place] [phone] Authorized Cardiac Diagnoses Electrophysiolog Palpitations y P rocedures Electrophysiology Lab Request for Service (Electrophysiology Use Only) [place] INSERTION SUBQ CARDIAC RHYTHM MONITOR W/PRGRMG [place] EVENT RECORDER, CARDIAC Reason for Visit * Reason Comments Assessment Seizures Procedure Encounter Details Care Team Description Date Type Department Boom Santiago MD [address] [place] [phone] Assessment; Seizures; Procedure 07/31/2019 Telephone [facility] [address] [phone] Allergies Comments Active Allergy Reactions Severity Noted Date Azithromycin Itching 01/07/2019 Ciprofloxacin Rash 01/27/2018 Clindamycin Other - See Medium 10/05/2016 comments, Itching Clonazepam Itching, Medium 11/23/2017 Rash, Swelling All steroids-muscle weakness Corticosteroids Other - See 01/20/2016 (Glucocorticoids) comments Iodine Rash 10/05/2016 Lincomycin Rash Medium 09/15/2017 Nitrofurantoin Rash 01/27/2018 Other [place]-3s Anaphylaxis 01/27/2018 States it would be fatal Penicillins Other - See High 01/20/2016 comments, Shortness of Breath Shellfish Derived Other - See 03/18/2019 comments BActrim Rash Sulfamethizole Rash 07/05/2019 New string of tetanus- went to ER , medication for throat closing up Tetanus Vaccines And Swelling High 6 Toxoid documented as of this encounter (statuses as of 08/10/2019) Medications End Date Status Medication Sig Dispensed [...] mouth 0 ChewIndications: Vitamin daily. D insufficiency 08/03/2019 cefUROXime 250 mg Take 1 tablet 14 tablet 0 tabletIndications: by mouth 2 0 Dysuria (two) times daily for 7 days. 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 01/12/2019 Overview: Added automatically from request for ordonez rgery [id number] Obesity (BMI 30-39.9) 12/16/2018 Recurrent UTI 05/17/2018 [...] as of this encounter (statuses as of 08/10/2019) Resolved Problems Problem Noted Date Resolved Date Spondylosis of lumbar region without myelopathy or radiculo johanna 01/12/2019 01/16/2019 Overview: Added automatically from request for josé luis penaery [id number] documented as of this encounter (statuses as of 08/10/2019) Immunizations Name Administration Dates Next Due Influenza [...] Description Date Type Specialty Boom Santiago MD [address] [place] [phone] Provider, [facility] 08/18/2019 Appointment Cardiac Electrophys iology Marvin Oconnor MD [address] [place], [place] [phone] 08/21/2019 Office Visit Internal Medicine Laurie Hull LPC [address] [place], [place] [phone] 08/31/2019 Office Visit Psychiatry Zoila Rodas AGNP [address] [place] [phone] 09/06/2019 Office Visit Nephrology Beth Marquez MD [address] [place] [phone] 09/07/2019 Office Visit Psychiatry Kashif Cee MD [address] [place] [phone] 09/14/2019 Office Visit Neurology Eleno Mcnamara MD [address] [place] [phone] 09/15/2019 Office Visit Obstetrics & Gyneco Sukh Rocha MD [address] [place] [address] [id number] [place], [place] [phone] 11/23/2019 Office Visit Pain Medicine Dieter Zhou MD [id number] [place] [address] [phone] 01/03/2020 Office Visit Pulmonary Disease Order Schedule Name Type Priority Associated Diag noses Expected: 08/03/2019, Expires: 1 CBC W/O DIFF LAB Routine Palpitations Pre-procedure lab exam Expected: 08/03/2019, Expires: 1 MAGNESIUM LAB Routine Palpitations Pre-procedure lab exam Expected: 08/03/2019, Expires: 1 BASIC METABOLIC PANEL LAB Routine Palpitat ions (98082)(NA, K, CL, CO2, Pre-procedure lab exam GLUCOSE, BUN, CREATININE, CA) Expected: 08/03/2019, Expires: 1 PROTHROMBIN TIME / INR LAB Routine Palpita tions Pre-procedure lab exam Health Maintenance Due Date Last Done Comments [...] encounter Visit Diagnoses Diagnosis Palpitations - Primary Pre-procedure lab exam Pre-procedural laboratory examination documented in this encounter Insurance Type Payer Benefit Subscriber ID Effective Phone Address Plan / Dates Group [facility] [id number] 2019-P [address] [facility] [id number] [place] [address] documented as of this encounter
--- OUTSIDE RECORDS SUMMARY | 2019-11-09 10:08 | XMS REPORT | Clinical Summary ---
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 Active cannabidiol, CBD, Take by 0 (CANNABIDIOL ORAL) mouth 3 (three) times daily as needed. Active fluticasone propionate 50 Use 1 [place] 16 g 0 mcg/actuation nasal in each 0 sprayIndications: Viral nostril 2 URI with cough (two) times daily. Active VITAMIN D3 10 mcg (400 Take 1 tablet 0 02 unit) tablet by mouth 0 daily. Active SERTraline 50 mg Take one and 30 tablet 0 08/25/19 2 tabletIndications: a half 0 Psychogenic nonepileptic tablets daily seizure for two weeks. Then increase to two tablets daily. 08/03/2019 cefUROXime 250 mg Take 1 tablet 14 tablet 0 tabletIndications: by mouth 2 0 Dysuria (two) times daily for 7 days. 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 01/12/2019 Overview: Added automatically from request for ordonez rgery [id number] Obesity (BMI 30-39.9) 12/16/2018 Recurrent UTI 05/17/2018 [...] automatically from request for josé luis silvestre [id number] Encounters Care Team Description Date Type Specialty Boom Santiago MD Assessment 08/23/2019 Telephone Cardiology Boom Santiago MD Assessment; Rx Concern/Question 08/21/2019 Telephone Cardiology Boom Santiago MD Provider, Clc Ep Lab Area, Clc Holding Psychogenic nonepileptic seizure (Primar y Dx); Status post placement of implantable loop recorder 08/18/2019 [facility] Cardiac Electrophys iology Encounter Boom Santiago MD Appointment 08/17/2019 Telephone Cardiac Life Skills Educator Marvin Oconnor MD Lab Results 08/17/2019 Telephone [place] Viral URI with cough (Primary Dx); Goiter; Mesenteric panniculitis; Breast cancer screening by mammogram 08/16/2019 Office Visit Internal Medicine Boom Santiago MD Orders 08/14/2019 Telephone Cardiology Jamison Warner MD Lower abdominal pain (Primary Dx); Upper respiratory tract infection, unspecified type; Mesenteric adenitis; Goiter 08/13/2019 Emergency Emergency Medicine Merrill Parks MD 08/07/2019 Hospital Radiology Encounter Merrill Parks MD Right foot pain (Primary Dx) 08/07/2019 Office Visit Orthopedic Surgery Merrill Parks MD Assessment 08/07/2019 Telephone Orthopedic Surgery Boom Santiago MD Assessment; Seizures; Procedure 07/31/2019 Telephone Cardiology Marvin Oconnor MD Lab Results 07/31/2019 Telephone Internal Medicine Dieter Zhou MD Test, [facility] Pulmonary Function Dyspnea on exertion 07/28/2019 Bilingual Hr Generalist Pulmonary Function Visit Technologist Doctor Unassigned, [place] 07/28/2019 Orders Only Marvin Oconnor MD Results 07/27/2019 Telephone Internal [place] Pcp-Lab Osteoporosis without current pathologica l fracture, unspecified osteoporosis type; Dysuria 07/26/2019 Bilingual Hr Generalist Phlebotomy Visit Marvin Oconnor MD Osteoporosis without current pathologica l fracture, unspecified osteoporosis type (Primary Dx); Dysuria; Need for shingles vaccine; Chronic pain of right ankle 07/26/2019 Office Visit Internal Medicine Boom Santiago MD Palpitations (Primary Dx) 07/20/2019 Office Visit Cardiology Doctor Unassigned, [place] 07/17/2019 Orders Only Marvin Oconnor MD Results 07/14/2019 Telephone [place] Pcp-Lab Dysuria 07/13/2019 Bilingual Hr Generalist Phlebotomy Visit Marvin Oconnor MD Dysuria (Primary [...] Fernandes MD Pcp-Lab Urinary frequency; Dysuria 06/30/2019 Bilingual Hr Generalist Phlebotomy Visit Unknown, Attending Yudy Fernandes MD Castillo, Jorge, MD Urinary frequency (Primary Dx); Dysuria; Convulsions, unspecified convulsion type 06/30/2019 Office Visit Internal Medicine Goldie Culver RN 06/29/2019 Abstract Public Health & Gen delightl Preventive Medicine Doctor Unassigned, [place] 06/22/2019 Orders Only Eleno Mcnamara MD Notification [...] Varner FNP Results 05/26/2019 Telephone Family Medicine from Last 3 Months Immunizations Name [...] Signs Reading Time Taken Comments Vital Sign 131/83 08/25/2019 2:59 PM MANAGER UNIX Blood Pressure 85 08/25/2019 2:59 PM MANAGER UNIX Pulse 36.1 C (96.9 F) 08/18/2019 11:57 AM MANAGER UNIX Temperature 18 08/25/2019 2:59 PM MANAGER UNIX Respiratory Rate 96% 08/18/2019 3:15 PM MANAGER UNIX Oxygen Saturation - - Inhaled Oxygen Concentration 80.7 kg (178 lb) 08/25/2019 2:59 PM MANAGER UNIX Weight 154.9 cm (5' 1") 08/18/2019 11:57 AM MANAGER UNIX Height 33.63 08/18/2019 11:57 AM MANAGER UNIX Body Mass Index Plan of Treatment Care Team Description Date Type Specialty Pacemaker/Icd, Clc 08/29/2019 Appointment Cardiac Electrophys iology Zoila Rodas AGNP [address] [place] [address] [phone] 09/06/2019 Office Visit Nephrology Kashif Cee MD [address] [place] [address]. [place] [phone] 09/14/2019 Office Visit Neurology Eleno Mcnamara MD [address] [place] [address] [phone] 09/15/2019 Office Visit Obstetrics & Gyneco logy Nurse, Pcp Gen Med Nicole Team 10/17/2019 Nurse Visit Internal [place] MD [address] [phone] 11/09/2019 Office Visit Internal Medicine Sukh Harris MD [address] [facility] [id number] [place], [place] [phone] 11/23/2019 Office Visit Pain Medicine Dieter Zhou MD [address] [place] [address] [id number] [place], [place] [phone] 01/03/2020 Office Visit Pulmonary Disease Health Maintenance [...] Routine 08/18/2019 Psychog enic nonepileptic 12:00 PM MANAGER UNIX seizure NOTICE OF PRIVACY Routine 08/18/2019 PRACTICES 10:37 AM MANAGER UNIX CONSENT/REFUSAL FOR Routine 08/18/2019 DIAGNOSIS AND TREATMENT 10:36 AM MANAGER UNIX ASSIGNMENT OF BENEFITS Routine 08/18/2019 10:35 AM MANAGER UNIX EP PROCEDURES Routine 08/18/2019 12:01 AM MANAGER UNIX POCT FLU A AND B Routine 08/16/2019 Viral URI wit h cough (MOLECULAR) THYROID STIMULATING STAT 08/13/2019 Goiter HORMONE 9:02 PM MANAGER UNIX CBC WITH DIFFERENTIAL STAT 08/13/2019 Lower ab dominal pain 9:02 PM MANAGER UNIX TROPONIN I STAT 08/13/2019 Lower abdominal pain 9:02 PM MANAGER UNIX LIPASE STAT 08/13/2019 Lower abdominal pain 9:02 PM MANAGER UNIX HEPATIC FUNCTION PANEL STAT 08/13/2019 Lower a bdominal pain (85947) (ALB,T.PRO,BILI 9:02 PM MANAGER UNIX T,BU/BC,ALT,AST,ALK PHOS) BASIC METABOLIC PANEL STAT 08/13/2019 Lower ab dominal pain (NA, K, CL, CO2, GLUCOSE, 9:02 PM MANAGER UNIX BUN, CREATININE, CA) CBC WITH DIFFERENTIAL Routine 08/13/2019 Lower ab dominal pain 9:[address] ABDOMEN PELVIS WO STAT 08/13/2019 Lower abd ominal pain CONTRAST 8:19 PM MANAGER UNIX XR CHEST 1 VW STAT 08/13/2019 Lower abdominal pain 8:12 PM MANAGER UNIX URINALYSIS STAT 08/13/2019 Lower abdominal pain 7:56 PM MANAGER UNIX EKG-12 LEAD Routine 08/13/2019 7:52 PM MANAGER UNIX EKG-12 LEAD STAT 08/13/2019 7:48 PM MANAGER UNIX EKG-12 LEAD Routine 08/13/2019 6:37 PM MANAGER UNIX EMERGENCY SERVICES Routine 08/13/2019 AGREEMENTS AND 12:01 AM MANAGER UNIX AUTHORIZATIONS XR ANKLE 3+ VW RIGHT Routine 08/07/2019 Right mike t pain 1:50 PM MANAGER UNIX XR FOOT 3+ VW RIGHT Routine 08/07/2019 Right mike t pain 1:50 PM MANAGER UNIX EXTERNAL PROVIDER RECORDS Routine 08/04/2019 12:01 AM MANAGER UNIX PULMONARY FUNCTION TEST Routine 07/28/2019 (RESULTS) 10:43 AM MANAGER UNIX EXTERNAL PROVIDER RECORDS Routine 07/28/2019 12:01 AM MANAGER UNIX EXTERNAL PROVIDER RECORDS Routine 07/28/2019 12:01 AM MANAGER UNIX URINALYSIS Routine 07/26/2019 Dysuria 4:25 PM MANAGER UNIX VITAMIN D, 25-OH Routine 07/26/2019 Osteoporosis without 4:25 PM MANAGER UNIX current pathological fracture, unspecified osteoporosis type VARICELLA-ZOSTER VACCINE, Routine 07/26/2019 Need for shingles vaccine (SHINGRIX) 50 MCG/0.5 ML, 3:58 PM MANAGER UNIX IM EKG-12 LEAD Routine 07/20/2019 11:23 AM MANAGER UNIX EXTERNAL PROVIDER RECORDS Routine 07/17/2019 12:01 AM MANAGER UNIX URINE CULTURE Routine 07/13/2019 Dysuria 4:19 PM MANAGER UNIX URINALYSIS Routine 07/13/2019 Dysuria 4:19 PM MANAGER UNIX EXTERNAL PROVIDER RECORDS Routine 07/11/2019 12:01 AM MANAGER UNIX CBC WITH DIFFERENTIAL STAT 07/05/2019 Rash 1:35 PM MANAGER UNIX CBC WITH DIFFERENTIAL STAT 07/05/2019 Rash 1:35 PM MANAGER UNIX BASIC METABOLIC PANEL STAT 07/05/2019 Rash (NA, K, CL, CO2, GLUCOSE, 1:35 PM MANAGER UNIX BUN, CREATININE, CA) EMERGENCY SERVICES Routine 07/05/2019 AGREEMENTS AND 12:01 AM MANAGER UNIX AUTHORIZATIONS EXTRA TUBE URINE CULTURE Routine 07/02/2019 9:54 AM MANAGER UNIX URINALYSIS STAT 07/02/2019 Cough 9:54 AM MANAGER UNIX XR CHEST 1 VW STAT 07/02/2019 Cough 7:58 AM MANAGER UNIX EXTRA TUBE LT. BLUE STAT 07/02/2019 7:40 AM MANAGER UNIX CBC WITH DIFFERENTIAL STAT 07/02/2019 Cough 7:40 AM MANAGER UNIX COMP. METABOLIC PANEL STAT 07/02/2019 Cough (22385) 7:40 AM MANAGER UNIX CBC WITH DIFFERENTIAL Routine 07/02/2019 Cough 7:40 AM MANAGER UNIX CONSENT/REFUSAL FOR Routine 07/02/2019 DIAGNOSIS AND TREATMENT 7:08 AM MANAGER UNIX HOSPITAL ADMISSION Routine 07/02/2019 12:01 AM MANAGER UNIX URINALYSIS JAMES 06/30/2019 Urinary frequen cy 2:37 PM MANAGER UNIX Dysuria URINE CULTURE JAMES 06/30/2019 Urinary frequen cy 2:37 PM MANAGER UNIX Dysuria EXTERNAL PROVIDER RECORDS Routine 06/22/2019 12:01 AM MANAGER UNIX URINE CULTURE Routine 06/16/2019 Recurrent UTI ( urinary 11:12 AM MANAGER UNIX tract infection) POCT URINALYSIS Routine 06/16/2019 Recurrent UTI (urinary 11:05 AM MANAGER UNIX tract infection) EXTRA TUBE URINE CULTURE STAT 06/02/2019 7:24 PM MANAGER UNIX EXTRA TUBE LT. BLUE STAT 06/02/2019 7:24 PM MANAGER UNIX CBC WITH DIFFERENTIAL STAT 06/02/2019 Acute cy stitis with 7:24 PM MANAGER UNIX hematuria HEPATIC FUNCTION PANEL STAT 06/02/2019 Acute c ystitis with (30083) (ALB,T.PRO,BILI 7:24 PM MANAGER UNIX hematuria T,BU/BC,ALT,AST,ALK PHOS) BASIC METABOLIC PANEL STAT 06/02/2019 Acute cy stitis with (NA, K, CL, CO2, GLUCOSE, 7:24 PM MANAGER UNIX hematuria BUN, CREATININE, CA) CBC WITH DIFFERENTIAL Routine 06/02/2019 Acute cy stitis with 7:24 PM MANAGER UNIX hematuria URINALYSIS STAT 06/02/2019 Acute cystitis with 7:24 PM MANAGER UNIX hematuria EMERGENCY SERVICES Routine 06/02/2019 AGREEMENTS AND 12:01 AM MANAGER UNIX AUTHORIZATIONS AUTHORIZATION FOR RELEASE Routine 05/30/2019 OF PHI 12:01 AM MANAGER UNIX from Last 3 Months Results * PROTHROMBIN TIME / INR (08/18/2019 12:00 PM MANAGER UNIX) PROTIME PATIENT 12.1 10.1 - 12.6 Seconds [facility] INR 1.1Comment: Normal INR <1.1; [facility] Warfarin Therapeutic range 2.0 [facility] to 3.0 or 2.5 to 3.5, [facility] depending upon the indications. Specimen Blood Performing Organization Address [facility] Ph one Number [facility] CLIA: [id number], [address] [phone] 98 [facility] * NOTICE OF PRIVACY PRACTICES (08/18/2019 10:37 AM MANAGER UNIX) Specimen Performing Organization Address [facility] Ph one Number HIM * CONSENT/REFUSAL FOR DIAGNOSIS AND TREATMENT (08/18/2019 10:36 AM MANAGER UNIX) Only the most recent of 2 results within the time period is included. Specimen Performing Organization Address [facility] Ph one Number HIM * ASSIGNMENT OF BENEFITS (08/18/2019 10:35 AM MANAGER UNIX) Specimen Performing Organization Address [facility] Ph one Number HIM * EP PROCEDURES (08/18/2019 12:01 AM MANAGER UNIX) Specimen Performing Organization Address [facility] Ph one Number HIM * POCT FLU A AND B (MOLECULAR) (08/16/2019) POCT INFLUENZA Negative Negative - Negative A POCT INFLUENZA Negative Negative - Negative B Specimen Swab * CBC WITH DIFFERENTIAL (08/13/2019 9:02 PM MANAGER UNIX) Only the most recent of 4 results within the time period is included. Pathologist [facility] WBC 6.09 4.30 - 11.10 [facility] 10*3/L [facility] RBC 4.96 3.93 - 5.25 10*6/L [facility] HGB 14.1 11.6 - 15.0 g/dL [facility] HCT 42.5 35.7 - 45.2 % [facility] MCV 85.7 80.6 - 95.5 fL [facility] MCH 28.4 25.9 - 32.8 pg [facility] MCHC 33.2 31.6 - 35.1 g/dL [facility] RDW-SD 41.0 39.0 - 49.9 fL [facility] RDW-CV 13.3 12.0 - 15.5 % [facility] PLT 205 166 - 358 10*3/L [facility] MPV 11.0 9.5 - 12.9 fL [facility] NRBC/100 WBC 0.0 0.0 - 10.0 /100 WBCs [facility] NRBC x10^3 <0.01 10*3/L [facility] GRAN MAT (NEUT) 57.1 % [facility] % [facility] IMM GRAN % 0.30 % [facility] LYMPH % 31.0 % [facility] MONO % 8.5 % [facility] EOS % 2.6 % [facility] BASO % 0.5 % [facility] GRAN MAT 3.47 1.88 - 7.09 10*3/uL [facility] x10^3(ANC) [facility] IMM GRAN x10^3 <0.03 0.00 - 0.06 10*3/uL [facility] LYMPH x10^3 1.89 1.32 - 3.29 10*3/uL [facility] MONO x10^3 0.52 0.33 - 0.92 10*3/uL [facility] EOS x10^3 0.16 0.03 - 0.39 10*3/uL [facility] BASO x10^3 0.03 0.01 - 0.07 10*3/uL [facility] Specimen Blood - VENOUS Performing Organization Address City/State/Zipcode Ph one Number [facility] CLIA: [id number], [address] [place] [address] [facility] * Basic Metabolic Panel (NA, K, CL, CO2, GLUCOSE, BUN, CREATININE, CA) (08/13/2019 9:02 PM MANAGER UNIX) Only the most recent of 3 results within the time period is included. NA 142 135 - 145 mmol/L [facility] K 3.5 3.5 - 5.0 mmol/L [facility] RY [facility] CL 103 98 - 108 mmol/L [facility] CO2 TOTAL 27 23 - 31 mmol/L [facility] AGAP 12 2 - 16 [facility] BUN 20 7 - 23 mg/dL [facility] GLUCOSE 99 70 - 110 mg/dL [facility] CREATININE 0.64 0.50 - 1.04 mg/dL [facility] CALCIUM 9.3 8.6 - 10.6 mg/dL [facility] eGFR 93.7 mL/min/1.73m2 [facility] Calculation [facility]) eGFR 113.6 mL/min/1.73m2 [facility] Calculation [facility] ([facility]) Specimen Blood - VENOUS Narrative Performed At Association of Glomerular Filtration Rate (GFR) and S taging of Kidney Disease* [facility] + + +------ + [facility] | GFR (mL/min/1.73 m2) | With Kidney Damage | [facility] Kidney Damage [place] + + -------+ + | >90 | [...] abnormalities in imaging tests). Performing Organization Address [facility] one Number [facility] CLIA: [id number], [address] [address] 98 [facility] * Hepatic Function Panel (ALB, T.PRO, BILI T, BU/BC, ALT, AST, ALK PHOS) (08/13/2019 9:02 PM MANAGER UNIX) Only the most recent of 2 results within the time period is included. Pathologist [facility] TOTAL BILI 0.5 0.1 - 1.1 mg/dL [facility] BILI UNCON 0.4 0.1 - 1.1 mg/dL [facility] BILI CONJ 0.0 0.0 - 0.3 mg/dL [facility] T PROTEIN 7.2 6.3 - 8.2 g/dL [facility] ALBUMIN 4.7 3.5 - 5.0 g/dL [facility] ALK PHOS 74 34 - 122 U/L [facility] ALTv 31 5 - 35 U/L [facility] AST(SGOT) 28 13 - 40 U/L [facility] Specimen Blood - VENOUS Performing Organization Address [facility] one Number [facility] CLIA: [id number], [address] [address] [facility] * THYROID STIMULATING HORMONE (08/13/2019 9:02 PM MANAGER UNIX) Pathologist [facility] TSH 1.93Comment: Biotin has been 0.45 - 4.70 mIU/L [facility] reported to cause a negative SERVICES-CLEAR bias, interpret results [facility] relative to patient's use of biotin. Specimen Blood - VENOUS Performing Organization Address [facility] one Number [facility] CLIA: [id number], [address] [place], [place] [address] [facility] * Troponin I (08/13/2019 9:02 PM MANAGER UNIX) TROPONIN I 0.001 <=0.034 ng/mL [facility] Specimen Blood - VENOUS Narrative Performed At Equal or Less than 0.034 ng/ml---Normal [facility] Note: Cardiac troponin begins to rise 3-4 hours after the onset of ischemia. [facility] Repeat in 4-6 hours if the sample was d rawn within 3-4 hours of the onset of the [place] symptom and found normal. Between 0.035 and [...] patient's use of biotin. Performing Organization Address City/State[facility] Ph one Number [facility] CLIA: [id number], [address] [place], [place] [address] [facility] * Lipase Serum (08/13/2019 9:02 PM MANAGER UNIX) LIPASE 205 0 - 220 U/L [facility] Specimen Blood - VENOUS Performing Organization Address City/State/Zipcode Ph one Number [facility] CLIA: [id number], [address] [place], [place] [address] [address] [facility] * CT Abdomen/Pelvis W/O Contrast (08/13/2019 8:19 PM MANAGER UNIX) Specimen Impressions Performed At Findings suggest mesenteric [...] are seen in the bones. Procedure Note [facility], Radiant Results Inft User - 08/13/2019 9:04 PM MANAGER UNIX EXAM: CT ABDOMEN AND PELVIS WITHOUT CONTRAST [...] no follow-up is recommended. Performing Organization Address [facility] one Number PACS/VR/DOSE * Chest 1 View (08/13/2019 8:12 PM MANAGER UNIX) Only the most recent of 2 results within the time period is included. Specimen Impressions Performed At Impression: PACS/VR/DOSE Prominent [...] Results Inft User - 08/13/2019 8:36 PM MANAGER UNIX Exam: XR CHEST 1 VW Clinical History: [...] pleural effusion, or pneumothorax. Performing Organization Address [facility] one Number PACS/VR/DOSE * Urinalysis (08/13/2019 7:56 PM MANAGER UNIX) Only the most recent of 6 results within the time period is included. APPEARANCE Clear Clear [facility] COLOR Yellow Yellow [facility] PH 5.0 4.8 - 8.0 [facility] SP GRAVITY 1.027 1.003 - 1.030 [facility] GLU U QUAL Normal Normal [facility] BLOOD Negative Negative [facility] KETONES Negative Negative [facility] PROTEIN Negative Negative [facility] UROBILIN Normal Normal [facility] BILIRUBIN Negative Negative [facility] NITRITE Negative Negative [facility] LEUK MICHAEL Negative Negative [facility] RBC/HPF 2 0 - 3 HPF [facility] WBC/HPF 6 (H) 0 - 5 HPF [facility] BACTERIA Few (A) Negative [facility] MUCOUS Slight (A) Negative LPF [facility] AMORPHOUS Rare Rare HPF [facility] SQ EPITH 2 <=2 HPF [facility] Specimen Urine - URINE, CATHETERIZED Performing Organization Address [facility] Ph one Number [facility] CLIA: [id number], [address] [place], [place] [address] [facility] * EKG-12 LEAD (08/13/2019 7:52 PM MANAGER UNIX) Specimen Performing Organization Address [facility] Ph one Number [facility] * EKG-12 LEAD (08/13/2019 6:37 PM MANAGER UNIX) Specimen Performing Organization Address [facility] Ph one Number [facility] * EMERGENCY SERVICES AGREEMENTS AND AUTHORIZATIONS (08/13/2019 12:01 AM MANAGER UNIX) Only the most recent of 3 results within the time period is included. Specimen Performing Organization Address City/[facility] Ph one Number HIM * XR FOOT 3+ VW RIGHT (08/07/2019 1:50 PM MANAGER UNIX) Specimen Impressions Performed At No acute bony [...] Results Inft User - 08/07/2019 3:14 PM MANAGER UNIX EXAM: XR FOOT 3+ VW RIGHT, EXAM: XR ANKLE 3+ VW RIGHT HISTORY: pain COMPARISON: 11/16/2017 FINDINGS: Imaging of the right foot and ankle was obtained. Osteopenia is noted. Joint spaces are maintained. Calcaneal enthesophytes are noted. Mild dorsal talonavicular osteophytosis is present. The ankle mortise is congruent. IMPRESSION No acute bony abnormality. Mild osteoarthrosis. Performing Organization Address [facility] one Number PACS/VR/DOSE * XR ANKLE 3+ VW RIGHT (08/07/2019 1:50 PM MANAGER UNIX) Specimen Impressions Performed At No acute bony [...] Results Inft User - 08/07/2019 3:14 PM MANAGER UNIX EXAM: XR FOOT 3+ VW RIGHT, EXAM: XR ANKLE 3+ VW RIGHT HISTORY: pain COMPARISON: 11/16/2017 FINDINGS: Imaging of the right foot and ankle was obtained. Osteopenia is noted. Joint spaces are maintained. Calcaneal enthesophytes are noted. Mild dorsal talonavicular osteophytosis is present. The ankle mortise is congruent. IMPRESSION No acute bony abnormality. Mild osteoarthrosis. Performing Organization Address [facility] Ph one Number PACS/VR/DOSE * EXTERNAL PROVIDER RECORDS (08/04/2019 12:01 AM MANAGER UNIX) Only the most recent of 6 results within the time period is included. Specimen Performing Organization Address [facility] Ph one Number HIM * PULMONARY FUNCTION TEST (RESULTS) (07/28/2019 10:43 AM MANAGER UNIX) Specimen Performing Organization Address [facility] [facility] one Number PFT * VITAMIN D, 25-OH (07/26/2019 4:25 PM MANAGER UNIX) VIT D 25OH 23 (L) 25 - 80 ng/mL [facility] Specimen Blood Narrative Performed At Deficiency: <20 ng/mL [facility] Insufficiency: 20-24 ng/mL SERVICES Optimal: 25-80 ng/mL Performing Organization Address [facility] one Number [facility] CLIA: [id number], [address] [place] [address] [facility] * EKG-12 LEAD (07/20/2019 11:23 AM MANAGER UNIX) Specimen Performing Organization Address [facility] one Number HST * URINE CULTURE (07/13/2019 4:19 PM MANAGER UNIX) Only the most recent of 3 results within the time period is included. URINE CULTURE >100,000 CFU/mL Klebsiella [facility] pneumoniae SERVICES Specimen [...] pyelonephritis or systemic disease. Performing Organization Address [facility] one Number [facility] CLIA: [id number], [address] [place] [address] [facility] * EXTRA TUBE URINE CULTURE (07/02/2019 9:54 AM MANAGER UNIX) Only the most recent of 2 results within the time period is included. Specimen Urine - URINE, CLEAN CATCH Performing Organization Address [facility] one [facility] CLIA: [id number], [address] [place], [place] [address] [facility] * EXTRA TUBE LT. BLUE (07/02/2019 7:40 AM MANAGER UNIX) Only the most recent of 2 results within the time period is included. Specimen Blood Performing Organization Address City/State/Zipcode Ph one Number [facility] CLIA: [id number], [address] [place], [place] [address] [facility] * COMP. METABOLIC PANEL ([id number]) (07/02/2019 7:40 AM MANAGER UNIX) NA 140 135 - 145 mmol/L [facility] K 3.2 (L) 3.5 - 5.0 mmol/L [facility] CL 101 98 - 108 mmol/L [facility] CO2 TOTAL 28 23 - 31 mmol/L [facility] AGAP 11 2 - 16 [facility] BUN 16 7 - 23 mg/dL [facility] GLUCOSE 122 (H) 70 - 110 mg/dL [facility] CREATININE 0.59 0.50 - 1.04 mg/dL [facility] TOTAL BILI 0.5 0.1 - 1.1 mg/dL [facility] CALCIUM 8.7 8.6 - 10.6 mg/dL [facility] T PROTEIN 6.7 6.3 - 8.2 g/dL [facility] ALBUMIN 4.3 3.5 - 5.0 g/dL [facility] ALK PHOS 74 34 - 122 U/L [facility] ALTv 31 5 - 35 U/L [facility] AST(SGOT) 30 13 - 40 U/L [facility] eGFR 102.9 mL/min/1.73m2 [facility] Calculation [facility] eGFR 124.8 mL/min/1.73m2 [facility] Calculation [facility] ( [facility] [place]) Specimen Blood - VENOUS Narrative Performed At Association of Glomerular Filtration Rate (GFR) and S taging of Kidney Disease* [facility] + + +------ + SERVICES-CLEAR QUAN | GFR (mL/min/1.73 m2) | With Kidney Damage | [facility] + + -------+ + [...] abnormalities in imaging tests). Performing Organization Address City/[facility] one Number [facility] CLIA: [id number], [address] [place], [place] [address] [facility] * HOSPITAL ADMISSION (07/02/2019 12:01 AM MANAGER UNIX) Specimen Performing Organization Address [facility] one Number HIM * POCT URINALYSIS W SPECIFIC GRAVITY (06/16/2019 11:05 AM MANAGER UNIX) POCT U SP GRAV 1.015 1.005 - [...] and interpretation of all internal controls * AUTHORIZATION FOR RELEASE OF PHI (05/30/2019 12:01 AM MANAGER UNIX) Specimen Performing Organization Address [facility]/Zipcode Ph one Number HIM from Last 3 Months Insurance Type Payer Benefit Subscriber ID Effective Phone Address Plan / Dates Group HMO HIM [facility] [id number] 2019-P [address] [facility] [id number] [place] [address]
--- OUTSIDE RECORDS SUMMARY | 2019-11-09 10:08 | XMS REPORT | Summary of Care ---
Author Author [facility] - Health Organization [facility] - Health Address Unknown Phone Unavailable Care Team Providers Care Publication Distributor Name Role Phone Fabien Fernandes MD Unavailable Marvin Oconnor MD PCP Ulysses Lazar 25 Unavailable Reason for Visit * Reason Comments ILR Check * (Routine) Referred By Contact Referred To Contact Status Reason Specialty Diagnoses / Procedures Marvin Oconnor MD [address] [address] [facility] Ep Device [facility] [address] [place] [address] [place] [phone] Authorized IM-CARDIOVASCULA Diagnoses R DISEASE / Device Cardiac P Electrophysiolog rocedures y EP DEVICE CHECK NEW EP DEVICE Encounter Details Care Team Description Date Type Department Joseph Kat MD [address] [place] [address] Pacemaker/Icd, Clc Syncope, unspecified syncope type 08/29/2019 [facility] Cardiol [facility]gy, Encounter [facility] [address] [facility] [address] [place] [phone] Allergies Comments Active Allergy Reactions Severity Noted Date Azithromycin Itching 01/07/2019 Ciprofloxacin Rash 01/27/2018 Clindamycin Other - See Medium 10/05/2016 comments, Itching Clonazepam Itching, Medium 11/23/2017 Rash, Swelling All steroids-muscle weakness Corticosteroids Other - See 01/20/2016 (Glucocorticoids) comments Doxycycline Rash Low 08/21/2019 Iodine Rash 10/05/2016 "swelling internally" per patient Cephalexin Itching, Rash 08/18/2019 Lincomycin Rash Medium 09/15/2017 Nitrofurantoin Rash 01/27/2018 Other [place]-3s Anaphylaxis 01/27/2018 States it would be fatal Penicillins Other - See High 01/20/2016 comments, Shortness of Breath Shellfish Derived Other - See 03/18/2019 comments BActrim Rash Sulfamethizole Rash 07/05/2019 New string of tetanus- went to ER , medication for throat closing up Tetanus Vaccines And Swelling High 6 Toxoid documented as of this encounter (statuses as of 08/30/2019) Medications End Date Status Medication Sig Dispensed [...] needed. Active fluticasone propionate 50 Use 1 [place] 16 g 0 mcg/actuation nasal in each [...] weeks. Then increase to two tablets daily. 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 01/12/2019 Overview: Added automatically from request for josé luis silvestre [id number] Obesity (BMI 30-39.9) 12/16/2018 Recurrent UTI 05/17/2018 [...] as of this encounter (statuses as of 08/30/2019) Resolved Problems Problem Noted Date Resolved Date Spondylosis of lumbar region without myelopathy or radiculo johanna 01/12/2019 01/16/2019 Overview: Added automatically from request for josé luis silvestre [id number] documented as of this encounter (statuses as of 08/30/2019) Immunizations Name Administration Dates Next Due Influenza [...] Treatment Care Team Description Date Type Specialty Unknown, Attending Fortunato Silver MD [address] [place] [phone] 08/30/2019 Office Visit Internal Medicine Laurie Hull, [employer] ASSISTANT [address] MACK [address] [place] [address] 08/31/2019 Office Visit Psychiatry Boom Santiago MD [address] [place] [phone] Provider, Clc Ep Lab 2, Clc Cardiac Proc Room 09/05/2019 Appointment Cardiac Electrophys iology Zoila Rodas AGNP [address] [place] [phone] 09/06/2019 Office Visit Nephrology Kashif Cee MD [address] [place] [phone] 09/14/2019 Office Visit Neurology Eleno Mcnamara MD [address] [place] [address] 09/15/2019 Office Visit Obstetrics & Gyneco logy Nurse, Pcp Gen Med Nicole Team 10/17/2019 Nurse Visit Internal Medicine Beth Marquez MD [address] [place] [phone] 10/26/2019 Office Visit Psychiatry Marvin Oconnor MD [address] [place], [place] [phone] 11/09/2019 Office Visit Internal Medicine Sukh Harris MD [id number] [place], [place] [phone] 11/23/2019 Office Visit Pain Medicine Dieter Zhou MD [id number] [place], [place] [phone] 01/03/2020 Office Visit Pulmonary Disease Health Maintenance [...] filedocumented in this encounter Visit Diagnoses Diagnosis Syncope, unspecified syncope type documented in this encounter Insurance Type Payer Benefit Subscriber ID Effective Phone Address Plan / Dates Group [facility] [id number] 2019-P [address] [employer] [facility] [id number] [place] [address] documented as of this encounter
--- OUTSIDE RECORDS SUMMARY | 2019-11-09 10:08 | XMS REPORT | Summary of Care ---
Author Author [facility] - Health Organization [facility] - Health Address Unknown Phone Unavailable Care Team Providers Care Associate Financial Planner Name Role Phone Fabien Fernandes MD Unavailable Marvin Oconnor MD PCP Cady Team 25 Unavailable Reason for Referral * (Routine) Referred By Contact Referred To Contact Status Reason Specialty Diagnoses / Procedures Boom Santiago MD [address] [place] [phone] New Request IM-CLINICAL Diagnoses CARDIAC Cellulitis of ELECTROPHYSIOLOG chest wall Y P rocedures Discharge Follow-Up: Specialty Service IM-CLINICAL CARDIAC ELECTROPHYSIOLOGY; 1 Week * Radiology Services (STAT) Referred By Contact Referred To Contact Status Reason Specialty Diagnoses / Procedures Giuliano Edwards DO [address] [address] New Request Diagnostic Diagnoses Radiology Seizures P rocedures Chest 1 View Reason for Visit * Reason Comments Seizures * Auth/Cert Referred By Contact Referred To Contact Status Reason Specialty Diagnoses / Procedures [facility] Emergency Dept [address] [place] [address] Emergency Medicine Encounter Details Care Team Description Date Type Department Giuliano Edwards DO [address] [id number] Luis Cullen MD [address] [place] [address] Altered mental status 09/04/2019 Emergency [facility] - Medicine/Surgery CLC 6B 09/05/2019 [address] [place] [address] Allergies Comments Active Allergy Reactions Severity Noted Date Azithromycin Itching 01/07/2019 Ciprofloxacin Rash 01/27/2018 Clindamycin Other - See Medium 10/05/2016 comments, Itching Clonazepam Itching, Medium 11/23/2017 Rash, Swelling All steroids-muscle weakness Corticosteroids Other - See 01/20/2016 (Glucocorticoids) comments Doxycycline Rash Low 08/21/2019 Iodine Rash 10/05/2016 "swelling internally" per patient Cephalexin Itching, Rash 08/18/2019 Lincomycin Rash Medium 09/15/2017 Nitrofurantoin Rash 01/27/2018 Other [place]-3s Anaphylaxis 01/27/2018 States it would be fatal Penicillins Other - See High 01/20/2016 comments, Shortness of Breath Shellfish Derived Other - See 03/18/2019 comments BActrim Rash Sulfamethizole Rash 07/05/2019 New string of tetanus- went to ER , medication for throat closing up Tetanus Vaccines And Swelling High 6 Toxoid documented as of this encounter (statuses as of 09/05/2019) Medications End Date Status Medication Sig Dispensed Refills Start Date Active cetirizine 10 mg tablet Take 10 mg by 3 mouth every 8 morning. Active omeprazole 40 mg capsule 40 mg 2 (two) 3 08/19 times daily. 9 Active dicyclomine 20 mg tablet Take 20 mg by 0 06/27 mouth 4 9 (four) times daily. Active montelukast 10 mg tablet Take 10 mg by 0 10/31 mouth. 8 Active hydroCHLOROthiazide 25 mg Take 1 tablet 90 tablet 3 tabletIndications: by mouth 9 Hypertension, unspecified daily. type Active gabapentin 400 mg TAKE 1 90 capsule 2 07/13/19 2 capsuleIndications: CAPSULE BY 0 Radiculopathy of MOUTH THREE thoracolumbar region TIMES A DAY Active cannabidiol, CBD, Take by 0 (CANNABIDIOL ORAL) mouth 3 (three) times daily as needed. Active fluticasone propionate [address] 16 g 0 mcg/actuation nasal in each [...] weeks. Then increase to two tablets daily. Active cefUROXime 250 mg tablet Take 1 tablet 14 tablet 0 by mouth 2 0 (two) times daily. Active famotidine 40 mg Take 1 tablet 30 tablet 0 02 tabletIndications: by mouth 0 Gastroesophageal reflux daily. disease without esophagitis Active hydrOXYzine 25 mg Take 2 30 tablet 0 09/05/19 2 tabletIndications: tablets by 0 History of asthma mouth 2 (two) times daily as needed for Itching. Active cefUROXime 500 mg Take 1 tablet 6 tablet 0 tabletIndications: by mouth 2 0 Cellulitis of chest wall (two) times daily. 09/05/2019 Discontinued (Reorder) famotidine 40 mg tablet Take 40 mg by 0 mouth 2 (two) 8 times daily. 09/05/2019 Discontinued (Reorder) hydrOXYzine 25 mg tablet Take 50 mg by 0 mouth 2 (two) times daily. 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 01/12/2019 Overview: Added automatically from request for ordonez rgery [id number] Obesity (BMI 30-39.9) 12/16/2018 Recurrent UTI 05/17/2018 [...] as of this encounter (statuses as of 09/05/2019) Resolved Problems Problem Noted Date Resolved Date Spondylosis of lumbar region without myelopathy or radiculo johanna 01/12/2019 01/16/2019 Overview: Added automatically from request for josé luis silvestre [id number] documented as of this encounter (statuses as of 09/05/2019) Immunizations Name Administration Dates Next Due Influenza [...] Signs Reading Time Taken Comments Vital Sign 134/72 09/05/2019 2:35 PM CDT Blood Pressure 66 09/05/2019 2:35 PM CDT Pulse 37.1 C (98.8 F) 09/05/2019 12:15 PM CDT Temperature 18 09/05/2019 2:35 PM CDT Respiratory Rate 93% 09/05/2019 2:35 PM CDT Oxygen Saturation - - Inhaled Oxygen Concentration 81.6 kg (180 lb) 09/04/2019 7:20 AM CDT Weight 154.9 cm (5' 1") 09/04/2019 7:20 AM CDT Height 34.01 09/04/2019 7:20 AM CDT Body Mass Index documented in this encounter Discharge Summaries * Tony WardNICOLE - 09/05/2019 1:18 PM CDT RED TEAM ([facility]) DISCHARGE SUMMARY DATE OF SERVICE: 09/05/19 ADMIT DATE: 09/04/2019 DISCHARGE DATE: 09/05/19 REASON FOR ADMISSION: altered mental status FINAL DIAGNOSIS: Cellulitis of chest wall Pseudoseizures ACTIVE PROBLEMS: Patient Active Problem List Diagnosis Psychogenic nonepileptic seizure Recurrent UTI Diarrhea, unspecified type Frequent falls Obesity (BMI 30-39.9) Chronic lumbar radiculopathy Spondylosis of lumbar region without myelopathy or radiculopathy Acute stress reaction Altered gait Episodic altered awareness Essential hypertension GERD (gastroesophageal reflux disease) History of asthma History of depression Hypokalemia Left sided numbness Precordial pain Seizure Urinary tract infection without hematuria Altered mental status Cellulitis SIGNIFICANT LAB/X-RAYS: Recent Results (from the past 24 hour(s)) Lipid Panel (Total Cholesterol, Triglycerides, HDL) - Fasting Collection Time: 09/05/19 4:26 AM Result Value Ref Range CHOL 254 (H) 120 - 200 mg/dL HDL 38 (L) >50 mg/dL HDLC RATIO 6.7 (H) <=4.5 TRIG 285 (H) 30 - 170 mg/dL LDL CHOL 159 <=160 mg/dL VLDL 57 5 - 60 mg/dL VITAL SIGNS Vitals: 09/05/19 1215 09/05/19 1230 09/05/19 1245 09/05/19 1300 BP: 125/70 113/68 123/68 124/64 Patient Position: Supine Supine Pulse: 60 60 60 62 Resp: Temp: 37.1 C (98.8 F) TempSrc: SpO2: 92% 94% 95% 94% Weight: Height: HOSPITAL COURSE: John Sarmiento is a 64 year old female presenting with: 1. Left Chest Cellulitis - Continue IV abx and switch to PO tomorrow. - Per chart review, patient started on doxycycline and developed all ergies to that. 2. Pseudo-Seizures - Continue home medications. She was given ativan in ED and seizure subsided. - Consult neuro 3. Infected Device - Continue abx as above. - Consult Dr. Santiago for possible removal of device. 4. Depression/Anxiety - Resume home meds. 5. HTN - Will resume home meds and adjust as needed. 6. HLD. - Home meds. 7. DVT ppx - Heparin. DISPO - Likely DC tomorrow if stable and device removed. 09/05/19 - S/p removal of event monitor, no complications. Site looks much better. - DC home with cefuroxime for 3 days. - No further seizures noted. Continue outpatient follow-up with psych. - F/u with EP in 1 week. DISCHARGE CONDITION: good DIET: Cardiac ACTIVITY: as tolerated DISCHARGE MEDICATIONS: Gerson John Home Medication Instructions REMY:[id number] Printed on:09/05/19 4370 Medication Information cannabidiol, CBD, (CANNABIDIOL ORAL) Take by mouth 3 (three) times daily as needed. cefUROXime 250 mg tablet Take 1 tablet by mouth 2 (two) times daily. cefUROXime 500 mg tablet Take 1 tablet by mouth 2 (two) times daily. cetirizine 10 mg tablet Take 10 mg by mouth every morning. dicyclomine 20 mg tablet Take 20 mg by mouth 4 (four) times daily. famotidine 40 mg tablet Take 1 tablet by mouth daily. fluticasone propionate 50 mcg/actuation nasal spray Use [address] in each nostril 2 (two) times daily. gabapentin 400 mg capsule TAKE 1 CAPSULE BY MOUTH THREE TIMES A DAY hydroCHLOROthiazide 25 mg tablet Take 1 tablet by mouth daily. hydrOXYzine 25 mg tablet Take 2 tablets by mouth 2 (two) times daily as needed for Itching. montelukast 10 mg tablet Take 10 mg by mouth. omeprazole 40 mg capsule 40 mg 2 (two) times daily. SERTraline 50 mg tablet Take one and a half tablets daily for two weeks. Then increase to two tablets da bailey. VITAMIN D3 10 mcg (400 unit) tablet Take 1 tablet by mouth daily. DISCHARGE: Home FOLLOW-UP APPOINTMENT: Dr. Santiago in 1 week TIME SPENT: Greater than 30 minutes. KARYN Miller [place] [employer] [facility] [phone] documented in this encounter Discharge Instructions * Attachments The following attachments cannot be sent through Care Everywhere.* Seizures: First Aid (Afghan) documented in this encounter Progress Notes * Sherly Hurley RN - 09/05/2019 2:08 PM CDT Care Management Discharge Disposition Note (DCDN) 5-2-1 Interventions: Disease specific education;Intensive medication reconciliat ion/management;Teach back;Clear discharge plan 5-2-1 Providers: Physician;Commercial Counsel/Co Founder And Ceo;Nurse 5-2-1 Patient Capacity Improvements: Avoidance of adverse events/readmission Discharge location(s): Home Patient choice completed for referred services: Discussed with patient/patients family involved in decision making: Yes Patient or family caregiver understands, and agrees with discharge plan. Community resources/referrals made or provided to patient: No Transportation: Private Vehicle(RICK SARMIENTO Spouse [phone]; ELLY ARAGON Child [phone]) Mental Status: Alert & Oriented to Person,Place & Time Living Arrangement: Home Address of living arrangement: [address] [place] [address] Funding Resources: Commercial Nursing informed of discharge plan: Yes Name of RN informed: Peyton ZAZUETA Estimated discharge date: 09/05/19 Time: 1430 Additional Information: DC home with family. CM/SW Name & Contact number: Sherly Hurley RN, BSN, ACM-RN Global Account Manager [email or web address] The following information has been provided to the facility noted above: reason for the patient discharge or transfer; patients physical and psychosocial sta tus; summary of care, treatment, services provided to patient; and the patient p rogress toward goals. * Sherly Hurley RN - 09/05/2019 2:06 PM CDT Care Management Social Functional Assessment Patient Name: John Sarmiento Age: [age] year old Sex: female L Patient's Previous Admission Date at [facility]: 12/16/2018 Current diagnosis and co-morbidities: altered mental status Readmission Questions: Was patient discharged from any acute care hospital within the last 30 days: No Social Functional Assessment: Primary language spoken/preferred: Afghan Mental Status: Alert & Oriented to Person,Place & Time Information given by: Self Patient's support system: Spouse;Child Name and number of support system: RICK SARMIENTO Spouse [phone]; ELLY IBANEZ Child [phone] Primary Player Piano Technician: Self;Same as Support System MPOA: No Living Arrangement: Home Address of living arrangement : [address] [place] [id number] Persons living in home: Self;Same as support system Baseline functional status- ambulation: Independent Functional status-baseline personal care: Independent Baseline functional status- driving: Independent Baseline functional status- grocery shopping: Independent Functional status-baseline housekeeping: Independent Functional status-baseline meal prep: Independent Current functional status same as prior: Yes Do you have a PCP?: Yes Name of PCP: Marvin Oconnor MD Home Health Care Agency: No Provider Services: No DME Company: No Hemodialysis: No Funding Resources: Commercial Prescription coverage plan: Commercial Pharmacy where meds are filled: Other Other pharmacy: [facility] Pharmacy [place], [place] - [address] [phone] (Phone) Anticipated services prior to disharge: Continue Medical Eval;Lab Values;Consult ;IV Antibiotic Therapy Expected mode of discharge transportation: Same as support system Additional info required for discharge planning: Pending medical evaluation;No n eeds identified Recommended discharge plan: Home Any issues or concerns with obtaining/affording your medications at home: no. Are you or your support system able to pickup driver medications at discharge: yes. D escribe: spouse. SFA Complete: Social Functional Assessment complete: Yes Alcohol Use Screening (AUDIT-C) How often do you have a drink containing alcohol?: Never SCORE: 0 Did patient elect to have resources provided: No Role of Care Management explained. Sherly Hurley RN, BSN, ACM-RN Global Account Manager [email or web address] * Guru Henderson MD - 09/05/2019 9:11 AM CDT Progress note Neurology DATE OF SERVICE: 09/05/19 Day of Hospitalization: 0 Neurology follow up: For: Pseudoseizures SUBJECTIVE: HPI: She said that last night she had couple of seizure activities and she called the nurse for her Ativan. This morning, she Is alert , awake and conversing witho ut distress. Past Medical History: Diagnosis Date Depression Frequent falls Hyperlipidemia Hypertension IBS (irritable bowel syndrome) Low back pain Osteoporosis b/l hip Seizure (nonepileptic psychogenic) Past Surgical History: Procedure Laterality Date CHOLECYSTECTOMY HYSTERECTOMY MEDIAL BRANCH BLOCK (SHX) Right 01/23/2019 Surgeon: Sukh Harris MD; Location: [place] [facility] RADIOFREQUENCY THERMOCOAGULATION N/A 02/15/2019 Surgeon: Sukh Harris MD; Location: [place] [facility] TONSILLECTOMY Family History Problem Relation Age of Onset Heart Mother Hypertension Mother Diabetes Father Hypertension Father Social History Tobacco Use Smoking status: Never Smoker Smokeless tobacco: Never Used Substance Use Topics Alcohol use: No Drug use: No Allergies Allergen Reactions Pcn [Penicillins] Other - [...] See comments All steroids-muscle weakness Iodine Rash Keflex [Cephalexin] Itching and Rash "swelling internally" per patient Nitrofurantoin Rash Other [place]-3s Anaphylaxis Shellfish Derived Other - See comments Sulfamethizole Rash BActrim Rash Doxycycline Rash Patient Active Problem List Diagnosis Psychogenic nonepileptic seizure Recurrent UTI Diarrhea, unspecified type Frequent falls Obesity (BMI 30-39.9) Chronic lumbar radiculopathy Spondylosis of lumbar region without myelopathy or radiculopathy Acute stress reaction Altered gait Episodic altered awareness Essential hypertension GERD (gastroesophageal reflux disease) History of asthma History of depression Hypokalemia Left sided numbness Precordial pain Seizure Urinary tract infection without hematuria Altered mental status Cellulitis Meds: Current Facility-Administered Medications: acetaminophen (TYLENOL) tablet 650 mg, 650 mg, Oral, Q6HPRN, Achuo, Tony , ON AIR DIRECTOR dicyclomine (BENTYL) tablet 20 mg, 20 mg, Oral, QID, Achuo, Tony, ON AIR DIRECTOR, 2 0 mg at 09/05/19 0857 famotidine (PEPCID AC) tablet 40 mg, 40 mg, Oral, DAILY, Achuo, Tony, FN P, 40 mg at 09/05/19 0857 fluticasone propionate 50 mcg/actuation nasal spray [address], [address], Nasal , BID, Achuo, Tony, ON AIR DIRECTOR, Stopped at 09/05/19 0800 gabapentin (NEURONTIN) capsule 400 mg, 400 mg, Oral, TID, Achuo, Tony, F EDUCATIONAL TECHNICIAN, 400 mg at 09/05/19 0857 heparin (porcine) injection 5,000 Units, 5,000 Units, Subcutaneous, Q12H, A chuo, Tony, ON AIR DIRECTOR hydroCHLOROthiazide (ESIDRIX) tablet 25 mg, 25 mg, Oral, DAILY, Achuo, Rossy nce, ON AIR DIRECTOR, 25 mg at 09/05/19 0857 HYDROcodone-acetaminophen (NORCO 5) 5-325 mg tablet 1 tablet, 1 tablet, Ora l, Q6HPRN, Achuo, Tony, ON AIR DIRECTOR hydrOXYzine (ATARAX) tablet 25 mg, 25 mg, Oral, BID, Achuo, Tony, ON AIR DIRECTOR, 2 5 mg at 09/05/19 08 LORazepam (ATIVAN) injection 2 mg, 2 mg, Slow IV Push, Q4HPRN, Achuo, Teren ce, ON AIR DIRECTOR, 2 mg at 09/04/192136 montelukast (SINGULAIR) tablet 10 mg, 10 mg, Oral, DAILY, Achuo, Tony, F EDUCATIONAL TECHNICIAN, 10 mg at 09/05/19 08 ondansetron (ZOFRAN (PF)) injection 4 mg, 4 mg, Slow IV Push, Q6HPRN, Achuo , Tony, ON AIR DIRECTOR SERTraline (ZOLOFT) tablet 75 mg, 75 mg, Oral, QHS, Achuo, Tony, ON AIR DIRECTOR, 75 mg at 09/04/192022 Review of Systems: Review of Systems Constitutional: Negative. Negative for weight gain and weight loss. HENT: Negative for ear pain, hearing loss, sore throat, tinnitus and voice burns e. Eyes: Negative for photophobia, pain and visual disturbance. Respiratory: Negative for cough, chest tightness and wheezing. Cardiovascular: Positive for chest pain. Negative for palpitations and leg swell ing. Gastrointestinal: Negative for abdominal distention, abdominal pain, constipatio n, diarrhea, nausea and vomiting. Genitourinary: Negative for dysuria, urgency, flank pain, difficulty urinating a nd pelvic pain. Musculoskeletal: Positive for arthralgias. Negative for back pain, gait problem, joint swelling, myalgias, neck pain and neck stiffness. Skin: Negative for color change, pallor and rash. Neurological: Positive for seizures and speech difficulty. Negative for dizzines s, tremors, syncope, facial asymmetry, weakness, light-headedness, numbness and headaches. Psychiatric/Behavioral: Negative for agitation, behavioral problems, confusion, decreased concentration, hallucinations, sleep disturbance and suicidal ideas. T he patient is not nervous/anxious. Hematological: Negative for cold intolerance and heat intolerance. Endocrine: Negative for cold intolerance, heat intolerance, weight gain and weig ht loss. OBJECTIVE: Vitals: 09/04/19 2000 09/05/19 0000 09/05/19 0400 09/05/19 0805 BP: 129/86 135/73 131/74 (!) 140/88 Patient Position: Supine Supine Lying left side Supine Pulse: 75 70 66 78 Resp: 18 18 19 17 Temp: 36.9 C (98.5 F) 36.8 C (98.2 F) 37 C (98.6 F) 35.7 C (96.3 F) TempSrc: Oral Oral Oral Temporal Artery SpO2: 95% 93% 92% 94% Weight: Height: Physical Exam: Physical Exam Constitutional: She appears well-developed and well-nourished. She is active and cooperative. She is not intubated. HENT: Head: Normocephalic and atraumatic. Head is without contusion. Right Ear: Hearing normal. No decreased hearing is noted. Left Ear: Hearing normal. No decreased hearing is noted. Nose: Nose normal. Mouth/Throat: Uvula is midline and oropharynx is clear and moist. Eyes: Pupils are equal, round, and reactive to light. Conjunctivae, EOM and lids are normal. Lids are everted and swept, no foreign bodies found. Neck: Trachea normal, normal range of motion and phonation normal. Neck supple. Carotid bruit is not present. No tracheal deviation present. Cardiovascular: Normal rate, regular rhythm, S1 normal, S2 normal and normal hea rt sounds. Pulmonary/Chest: Effort normal and breath sounds normal. She is not intubated. N o respiratory distress. She exhibits no tenderness. Abdominal: Soft. Normal appearance and bowel sounds are normal. There is no hepa tosplenomegaly. Musculoskeletal: Normal range of motion. Neurological: She is alert. She displays abnormal reflex. A sensory deficit is p resent. No cranial nerve deficit. She exhibits normal muscle tone. Coordination and gait abnormal. She displays no Babinski's sign on the right side. She displa ys no Babinski's sign on the left side. Reflex Scores: Tricep reflexes are 1+ on the right side and 1+ on the left side. Bicep reflexes are 1+ on the right side and 1+ on the left side. Brachioradialis reflexes are 1+ on the right side and 1+ on the left side. Patellar reflexes are 1+ on the right side and 1+ on the left side. Achilles reflexes are 1+ on the right side and 1+ on the left side. Skin: Skin is warm, dry and intact. No rash noted. She is not diaphoretic. Psychiatric: Her affect is labile. Her speech is rapid and/or pressured and bev yed. She is hyperactive and withdrawn. She is not actively hallucinating. Though t content is not paranoid. Cognition and memory are impaired. She expresses inap propriate judgment. She is attentive. Neurologic Exam Cranial Nerves CN III, IV, Pupils are equal, round, and reactive to light. Extraocular motions are normal. Gait, Coordination, and Reflexes Reflexes Right brachioradialis: 1+ Left brachioradialis: 1+ Right biceps: 1+ Left biceps: 1+ Right triceps: 1+ Left triceps: 1+ Right patellar: 1+ Left patellar: 1+ Right achilles: 1+ Left achilles: 1+ Laboratory: Recent Results (from the past 24 hour(s)) Urinalysis Collection Time: 09/04/19 9:13 AM Result Value Ref Range APPEARANCE Cloudy (A) Clear COLOR Yellow Yellow PH 6.0 4.8 - 8.0 SP GRAVITY 1.009 1.003 - 1.030 GLU U QUAL Normal Normal BLOOD Negative Negative KETONES Negative Negative PROTEIN Negative Negative UROBILIN Normal Normal BILIRUBIN Negative Negative NITRITE Negative Negative LEUK MICHAEL 250/uL (A) Negative RBC/HPF 0 0 - 3 HPF WBC/HPF 4 0 - 5 HPF BACTERIA Few (A) Negative MUCOUS Slight (A) Negative LPF SQ EPITH 2 <=2 HPF Drug Screen ER Collection Time: 09/04/19 9:13 AM Result Value Ref Range AMPHET Negative Negative Cocaine Metabolite Negative Negative OPIATES Negative Negative THC Negative Negative Lipid Panel (Total Cholesterol, Triglycerides, HDL) - Fasting Collection Time: 09/05/19 4:26 AM Result Value Ref Range CHOL 254 (H) 120 - 200 mg/dL HDL 38 (L) >50 mg/dL HDLC RATIO 6.7 (H) <=4.5 TRIG 285 (H) 30 - 170 mg/dL LDL CHOL 159 <=160 mg/dL VLDL 57 5 - 60 mg/dL Diagnostic Results: No final results containing an impression from the past 48 hours were found. ASSESSMENT/PLAN: Assessment: . Pseudoseizure: previously evaluated By neurology . No changes in the medicati on , she is on. Advised to relax when she feels tensed up and seizure is coming. R56.9 Seizures (primary encounter diagnosis) R41.82 Altered mental status, unspecified altered mental status type R41.0 Confusion Patient Active Problem List Diagnosis Psychogenic nonepileptic seizure Recurrent UTI Diarrhea, unspecified type Frequent falls Obesity (BMI 30-39.9) Chronic lumbar radiculopathy Spondylosis of lumbar region without myelopathy or radiculopathy Acute stress reaction Altered gait Episodic altered awareness Essential hypertension GERD (gastroesophageal reflux disease) History of asthma History of depression Hypokalemia Left sided numbness Precordial pain Seizure Urinary tract infection without hematuria Altered mental status Cellulitis Plan: This is 30 minutes visits. More than half of the time spent with the patie nt and family discussing problems , going through labs and imaging studies. Time spent in coordinating care with other providers. Note has been written through [employer], has not been revised thoroughly. Some typo mistakes might hapen Call me fo r any question and concern. Kay Henderson MD Asst. Professor in Clinical Neurology [facility]. [facility] ( C) [phone]. documented in this encounter Plan of Treatment Care Team Description Date Type Specialty Kashif Cee MD [address] [place] [address] [phone] 09/14/2019 Office Visit Neurology Eleno Mcnamara MD [address] [place], [place] [phone] 09/15/2019 Office Visit Obstetrics & Gyneco logy Pacemaker/Icd, Clc 09/19/2019 Appointment Cardiac Electrophys iology Nurse, Pcp Gen Med Nicole Team 10/17/2019 Nurse Visit Internal Medicine Beth Marquez MD [address] [place] [address] [phone] 10/26/2019 Office Visit Psychiatry Marvin Oconnor MD [address] Casanova [address] [place] [phone] 11/09/2019 Office Visit Internal Medicine Sukh Harris MD [address] [facility] [id number] [place], [place] [phone] 11/23/2019 Office Visit Pain Medicine Dieter Zhou MD [address] [facility] [id number] [place], [place] [id number] 01/03/2020 Office Visit Pulmonary Disease Date/Time Name Type Priority Associated Diag noses 09/04/2019 7:43 AM CDT BLOOD CULTURE SCREEN LAB STAT Seizures 09/04/2019 7:43 AM CDT BLOOD CULTURE SCREEN LAB STAT Seizures Order Schedule Name Type Priority Associated Diag noses STAT for 1 Occurrences starting 09/04/19 20 Lactic Acid Whole Blood LAB Routine Seizur es Health Maintenance Due Date Last Done Comments HEPATITIS C (HCV) SCREEN 1955 Breast Cancer Screening 08/08/2019 08/08/2018 (MAMMOGRAM) Zoster Recombinant 09/20/2019 07/26/2019 Vaccine (SHINGRIX) (2 of 2) PAP SMEAR 08/02/2021 08/02/2018 COLONOSCOPY 06/22/2023 06/22/2018, 017 INFLUENZA VACCINE Completed 04/17/2019, 018, 03/21/2017 DTaP,Tdap,and Td Vaccines Discontinued PNEUMOCOCCAL 0-64 YEARS Discontinued COMBINED SERIES documented as of this encounter Implants Device Identifier Shelf Expiration Date Model / Serial / L ot Implanted Type Area Manufactur er Loop Recorder-08/18/2019 Chest Implanted: 08/18/2019 (Quantity not on file) documented as of this encounter Procedures Comments Procedure Name Priority Date/Time Associated Diag nosis LIPID PANEL (88251)(TOTAL Routine 09/05/2019 CHOLESTEROL, 4:26 AM CDT TRIGLYCERIDES, HDL) URINALYSIS STAT 09/04/2019 Seizures 9:13 AM CDT GALV/CLC ONLY - URINE STAT 09/04/2019 Seizures DRUG (IMMUNOASSAY) - 4 ER 9:13 AM CDT PANEL XR CHEST 1 VW STAT 09/04/2019 Seizures 8:09 AM CDT EKG-12 LEAD Routine 09/04/2019 7:50 AM CDT LACTIC ACID WHOLE BLOOD STAT 09/04/2019 Seizur es 7:44 AM CDT BLOOD CULTURE SCREEN STAT 09/04/2019 Seizures 7:43 AM CDT BLOOD CULTURE SCREEN STAT 09/04/2019 Seizures 7:43 AM CDT CBC WITH DIFFERENTIAL STAT 09/04/2019 Seizures 7:39 AM CDT N-TERMINAL PRO-BNP STAT 09/04/2019 Seizures 7:39 AM CDT ACTIVATED PARTIAL STAT 09/04/2019 Seizures THRMPLAS ULI 7:39 AM CDT PROTHROMBIN TIME / INR STAT 09/04/2019 Seizure s 7:39 AM CDT GLYCOSYLATED HEMOGLOBIN Add-on 09/04/2019 (A1C) 7:39 AM CDT CBC WITH DIFFERENTIAL Routine 09/04/2019 Seizures 7:39 AM CDT ETHANOL STAT 09/04/2019 Seizures 7:39 AM CDT BASIC METABOLIC PANEL STAT 09/04/2019 Seizures (NA, K, CL, CO2, GLUCOSE, 7:39 AM CDT BUN, CREATININE, CA) HEPATIC FUNCTION PANEL STAT 09/04/2019 Seizure s (87614) (ALB,T.PRO,BILI 7:39 AM CDT T,BU/BC,ALT,AST,ALK PHOS) TROPONIN I STAT 09/04/2019 Seizures 7:39 AM CDT EKG-12 LEAD STAT 09/04/2019 7:32 AM CDT CONSENT/REFUSAL FOR Routine 09/04/2019 DIAGNOSIS AND TREATMENT 7:11 AM CDT EXTERNAL PROVIDER RECORDS Routine 09/04/2019 12:01 AM CDT documented in this encounter Results * Lipid Panel (Total Cholesterol, Triglycerides, HDL) - Fasting (09/05/2019 4:26 AM CDT) CHOL 254 (H) 120 - 200 mg/dL [facility] HDL 38 (L) >50 mg/dL [facility] HDLC RATIO 6.7 (H) <=4.5 [facility] TRIG 285 (H) 30 - 170 mg/dL [facility] LDL CHOL 159 <=160 mg/dL [facility] VLDL 57 5 - 60 mg/dL [facility] Specimen Blood - VENOUS Performing Organization Address City/State/[facility] Ph one Number [facility] CLIA: [id number], [address] [place], [place] [address] [facility] * Drug Screen ER (09/04/2019 9:13 AM CDT) AMPHET Negative Negative [facility] Cocaine Negative Negative [facility] Metabolite [facility] OPIATES Negative Negative [facility] THC Negative Negative [facility] Specimen Urine - URINE, CLEAN CATCH Narrative Performed At Urine Drug Cutoff Ranges [facility] Amphetamine: 1,000 ng/mL SERVICES-CLEAR QUAN Cocaine: 150 ng/mL CAMPUS Opiates: 300 ng/mL Cannabinoids: 50 ng/mL The results are to be used only for med ical (i.e., treatment) purposes. Unconfirmed screening results must not be used for non-medical purposes (e.g., employment testing, legal testing). Performing Organization Address [facility] [place] one Number [facility] CLIA: [id number], [address] [place] [address] [facility] * Urinalysis (09/04/2019 9:13 AM CDT) APPEARANCE Cloudy (A) Clear [facility] COLOR Yellow Yellow [facility] PH 6.0 4.8 - 8.0 [facility] SP GRAVITY 1.009 1.003 - 1.030 [facility] GLU U QUAL Normal Normal [facility] BLOOD Negative Negative [facility] KETONES Negative Negative [facility] PROTEIN Negative Negative [facility] UROBILIN Normal Normal [facility] BILIRUBIN Negative Negative [facility] NITRITE Negative Negative [facility] LEUK MICHAEL 250/uL (A) Negative [facility] RBC/HPF 0 0 - 3 HPF [facility] WBC/HPF 4 0 - 5 HPF [facility] BACTERIA Few (A) Negative [facility] MUCOUS Slight (A) Negative LPF [facility] SQ EPITH 2 <=2 HPF [facility] Specimen Urine - URINE, CLEAN CATCH Performing Organization Address [facility] [place] one Number [facility] CLIA: [id number], [address] [place] [address] [facility] * Chest 1 View (09/04/2019 8:09 AM CDT) Specimen Narrative Performed At EXAM: XR CHEST 1 VW PACS/VR/DOSE HISTORY: weakness COMPARISON: None. FINDINGS: The heart and great vessels are normal and the lungs are satisfactorily expanded and clear except for minor bas ilar subsegmental atelectasis on the left. A loop recorder is superimposed u brittany the heart. Procedure Note [facility], Radiant Results Inft User - 09/04/2019 8:38 AM CDT EXAM: XR CHEST 1 VW HISTORY: weakness COMPARISON: None. FINDINGS: The heart and great vessels are normal and the lungs are satisfactorily expanded and clear except for minor basilar subsegmental atelectasis on the left. A loop recorder is superimposed upon the heart. Performing Organization Address [facility] [place] one Number PACS/VR/DOSE * Lactic Acid Whole Blood (09/04/2019 7:44 AM CDT) LACTIC ACID 1.90 0.50 - 2.20 mmol/L [facility] Specimen Blood - VENOUS Performing Organization Address [facility] [place] one Number [facility] CLIA: [id number], [address] [place] [phone] [address] [facility] * Glycosylated Hemoglobin (A1C) (09/04/2019 7:39 AM CDT) HGB A1C 6.2 (H) 4.0 - 6.0 % NGSP [facility] Specimen Blood - VENOUS Performing Organization Address [facility] [place] one Number [facility] CLIA: [id number], [address] [place], [place] [address] [facility] * CBC WITH DIFFERENTIAL (09/04/2019 7:39 AM CDT) WBC 5.87 4.30 - 11.10 [facility] 10*3/L [facility] RBC 4.98 3.93 - 5.25 10*6/L [facility] HGB 14.0 11.6 - 15.0 g/dL [facility] HCT 41.9 35.7 - 45.2 % [facility] MCV 84.1 80.6 - 95.5 fL [facility] MCH 28.1 25.9 - 32.8 pg [facility] MCHC 33.4 31.6 - 35.1 g/dL [facility] RY [facility] RDW-SD 39.8 39.0 - 49.9 fL [facility] RDW-CV 13.1 12.0 - 15.5 % [facility] PLT 186 166 - 358 10*3/L [facility] MPV 10.8 9.5 - 12.9 fL [facility] NRBC/100 WBC 0.0 0.0 - 10.0 /100 WBCs [facility] NRBC x10^3 <0.01 10*3/L [facility] GRAN MAT (NEUT) 55.1 % [facility] Y % [facility] IMM GRAN % 0.30 % [facility] LYMPH % 32.9 % [facility] MONO % 9.2 % [facility] EOS % 2.0 % [facility] BASO % 0.5 % [facility] GRAN MAT 3.23 1.88 - 7.09 10*3/uL [facility] x10^3(ANC) [facility] IMM GRAN x10^3 <0.03 0.00 - 0.06 10*3/uL [facility] LYMPH x10^3 1.93 1.32 - 3.29 10*3/uL [facility] MONO x10^3 0.54 0.33 - 0.92 10*3/uL [facility] EOS x10^3 0.12 0.03 - 0.39 10*3/uL [facility] BASO x10^3 0.03 0.01 - 0.07 10*3/uL [facility] Specimen Blood - VENOUS Performing Organization Address City/State/Zipcode Ph one Number [facility] CLIA: [id number], [address] [place], [place] [address] [facility] * Ethanol Level (09/04/2019 7:39 AM CDT) ALCOHOL <10 mg/dL [facility] Specimen Blood - VENOUS Narrative Performed At Toxic Greater than or equal to 80 mg/dL. [facility] NOTE: Whole blood values are approximately 10% to 15% lower than serum and [facility] plasma. CAMPUS Performing Organization Address [facility] [place] one Number [facility] CLIA: [id number], [address] [place] [address] [facility] * N-TERMINAL PRO-BNP (09/04/2019 7:39 AM CDT) Pathologist [facility] NT-proBNP 24 <=125 pg/mL [facility] Specimen Blood - VENOUS Narrative Performed At Biotin has been reported to cause a neg ative bias, interpret results relative to [facility] patient's use of biotin. [facility] Performing Organization Address [facility] [place] one Number [facility] CLIA: [id number], [address] [place] [address] [facility] * Prothrombin Time (PT) / INR (09/04/2019 7:39 AM CDT) PROTIME PATIENT 11.1 10.1 - 12.6 Seconds [facility] INR 1.0Comment: Normal INR <1.1; [facility] Warfarin Therapeutic range 2.0 [facility] to 3.0 or 2.5 to 3.5, [facility] depending upon the indications. Specimen Blood - VENOUS Performing Organization Address [facility] [place] one Number [facility] CLIA: [id number], [address] [place] [address] [facility] * aPTT (09/04/2019 7:39 AM CDT) APTT Patient 33 26 - 36 Seconds [facility] Y [facility] Specimen Blood - VENOUS Performing Organization Address [facility] [place] one Number [facility] CLIA: [id number], [address] [place] [address] [address] [facility] * Troponin I (09/04/2019 7:39 AM CDT) TROPONIN I <0.012 <=0.034 ng/mL [facility] Specimen Blood - VENOUS Narrative Performed At Equal or Less than 0.034 ng/ml---Normal [facility] Note: Cardiac troponin begins to rise 3-4 hours after the onset of ischemia. [facility] Repeat in 4-6 hours if the sample was d rawn within 3-4 hours of the onset of the PAOLI symptom and found normal. Between 0.035 and [...] use of biotin. Performing Organization Address City/State/Zipcode Ph one Number [facility] CLIA: [id number], [address] [place] [address] [address] [facility] * Hepatic Function Panel (ALB, T.PRO, BILI T, BU/BC, ALT, AST, ALK PHOS) (09/04/2019 7:39 AM CDT) TOTAL BILI 0.3 0.1 - 1.1 mg/dL [facility] BILI UNCON 0.3 0.1 - 1.1 mg/dL [facility] BILI CONJ 0.0 0.0 - 0.3 mg/dL [facility] T PROTEIN 7.1 6.3 - 8.2 g/dL [facility] ALBUMIN 4.4 3.5 - 5.0 g/dL [facility] ALK PHOS 66 34 - 122 U/L [facility] ALTv 24 5 - 35 U/L [facility] AST(SGOT) 22 13 - 40 U/L [facility] Specimen Blood - VENOUS Performing Organization Address City/State/Zipcode Ph one Number [facility] CLIA: [id number], [address] [place], [place] [address] [facility] * Basic Metabolic Panel (NA, K, CL, CO2, GLUCOSE, BUN, CREATININE, CA) (09/04/2019 7:39 AM CDT) NA 140 135 - 145 mmol/L [facility] K 3.3 (L) 3.5 - 5.0 mmol/L [facility] CL 99 98 - 108 mmol/L [facility] CO2 TOTAL 28 23 - 31 mmol/L [facility] AGAP 13 2 - 16 [facility] BUN 17 7 - 23 mg/dL [facility] GLUCOSE 113 (H) 70 - 110 mg/dL [facility] CREATININE 0.65 0.50 - 1.04 mg/dL [facility] CALCIUM 9.3 8.6 - 10.6 mg/dL [facility] eGFR 92.1 mL/min/1.73m2 [facility] Calculation [facility] ([facility]) eGFR 111.6 mL/min/1.73m2 [facility] Calculation [facility] ([facility]) Specimen Blood - VENOUS Narrative Performed At Association of Glomerular Filtration Rate (GFR) and S taging of Kidney Disease* [facility] + + +------ + [facility] | GFR (mL/min/1.73 m2) | With Kidney Damage | [facility] Kidney Damage PAOLI + + -------+ + | >90 | [...] Performing Organization Address City/State/Zipcode Ph one Number [facility] CLIA: [id number], [address] [place], [place] [address] [facility] documented in this encounter Visit Diagnoses Diagnosis Seizures - Primary Other convulsions Altered mental status, unspecified alte red mental status type Confusion Unspecified psychosis Cellulitis of chest wall Cellulitis and abscess of trunk Gastroesophageal reflux disease without esophagitis Esophageal reflux History of asthma Personal history of other diseases of r espiratory system Cellulitis Cellulitis and abscess of unspecified s ite documented in this encounter Administered Medications Action Date Dose Rate Site Medication Order MAR Action acetaminophen (TYLENOL) tablet 650 mg 650 mg, Oral, Q6HPRN, Starting Wed09/04/19 at 0954, Until Discontinued, Routine, Pain (scale 1-3) 09/05/2019 12:50 PM CDT 500 mg cefUROXime (CEFTIN) tablet 500 mg Given 500 mg, Oral, Q12H, 6 doses, First dose on Wed09/05/19 at 1130, Last dose on 09/07/19 at 2000, Routine, Reason for Anti-Infective: Surgical Prophylaxis, Surgical Prophylaxis: Cardiothoracic, Duration of therapy: within 24 hours of surgery 09/05/2019 12:47 PM CDT 20 mg dicyclomine (BENTYL) tablet 20 mg Given 20 mg, Oral, QID, First dose on Wed09/04/19 at 1200, Until Discontinued, Routine 20 mg Given 09/05/2019 8:57 AM CDT 20 mg Given 09/04/2019 8:23 PM CDT 09/05/2019 8:57 AM CDT 40 mg famotidine (PEPCID AC) tablet 40 mg Given 40 mg, Oral, DAILY, First dose on Wed09/05/19 at 0900, Until Discontinued, Routine 09/05/2019 12:47 PM CDT 400 mg gabapentin (NEURONTIN) capsule 400 mg Given 400 mg, Oral, TID, First dose on Wed09/04/19 at 1400, Until Discontinued, Routine 400 mg Given 09/05/2019 8:57 AM CDT 400 mg Given 09/04/2019 8:23 PM CDT heparin (porcine) injection 5,000 Units 5,000 Units, Subcutaneous, Q12H, First dose on Wed09/04/19 at 2000, Until Discontinued, Routine 09/05/2019 8:57 AM CDT 25 mg hydroCHLOROthiazide (ESIDRIX) tablet 25 Given mg 25 mg, Oral, DAILY, First dose on Wed09/05/19 at 0900, Until Discontinued, Routine HYDROcodone-acetaminophen (NORCO 5) 5-325 mg tablet 1 tablet 1 tablet, Oral, Q6HPRN, Starting Wed09/04/19 at 0954, Until Wed09/06/19 at 0953, Routine, Pain (scale 4-6) 09/05/2019 8:57 AM CDT 25 mg hydrOXYzine (ATARAX) tablet 25 mg Given 25 mg, Oral, BID, First dose on Wed09/04/19 at 2000, Until Discontinued, Routine 25 mg Given 09/04/2019 8:23 PM CDT 09/04/2019 9:37 PM CDT 2 mg LORazepam (ATIVAN) injection 2 mg Given 2 mg, Slow IV Push, Q4HPRN, Starting Mo n 09/04/19 at 0959, Until Discontinued, Routine, Seizures 09/05/2019 8:57 AM CDT 10 mg montelukast (SINGULAIR) tablet 10 mg Given 10 mg, Oral, DAILY, First dose on Wed09/05/19 at 0900, Until Discontinued, Routine ondansetron (ZOFRAN (PF)) injection 4 m g 4 mg, Slow IV Push, Q6HPRN, Starting Mo n 09/04/19 at 0954, Until Discontinued, Routine, Nausea and Vomiting (N/V) 09/04/2019 8:23 PM CDT 75 mg SERTraline (ZOLOFT) tablet 75 mg Given 75 mg, Oral, QHS, First dose on Wed09/04/19 at 2100, Until Discontinued, Routine Action Date Dose Rate Site Medication Order MAR Action 09/04/2019 3:32 PM CDT 40 mEq KCL (KLOR-CON M20) tablet 40 mEq Given 40 mEq, Oral, ONCE, 1 dose, 09/04/19 at 1630, Routine 09/04/2019 7:59 AM CDT 1 mg LORazepam (ATIVAN) injection 1 mg Given 1 mg, Slow IV Push, ONCE, 1 dose, 09/04/19 at 0900, STAT 09/04/2019 7:52 AM CDT 1,000 mL 999 mL/hr NaCl 0.9% (NS) bolus infusion 1,000 mL New Bag at 999 mL/hr, 1,000 mL, IV Infusion, ONCE, 1 dose, 09/04/19 at 0745, JAMES 09/04/2019 7:51 AM CDT 1,000 mg vancomycin (VANCOCIN) 1,000 mg in NaCl Given 0.9% (NS) 250 mL VIAL-MATE IV piggyback 1,000 mg, IV Piggyback, ONCE, 1 dose, 09/04/19 at 0845, 250 mL, Reason for Anti-Infective: Empiric Therapy for Suspected Infection, Empiric Therapy Site: Blood, Duration of therapy: 72 hours documented in this encounter Insurance Type Payer Benefit Subscriber ID Effective Phone Address Plan / Dates Group [facility] [id number] 2019-P [address] [facility] [id number] [place] [address] documented as of this encounter
--- OUTSIDE RECORDS SUMMARY | 2019-11-09 10:08 | XMS REPORT | Summary of Care ---
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 [place] [address] Right wrist pain (Primary Dx); Compulsive behavior disorder; Primary osteoarthritis of right wrist 08/30/2019 [facility] [address], [address] [place] [address] Allergies Comments Active Allergy Reactions Severity Noted Date Azithromycin Itching 01/07/2019 Ciprofloxacin Rash 01/27/2018 Clindamycin Other - See Medium 10/05/2016 comments, Itching Clonazepam Itching, Medium 11/23/2017 Rash, Swelling All steroids-muscle weakness Corticosteroids Other - See 01/20/2016 (Glucocorticoids) comments Doxycycline Rash Low 08/21/2019 Iodine Rash 10/05/2016 "swelling internally" per patient Cephalexin Itching, Rash 08/18/2019 Lincomycin Rash Medium 09/15/2017 Nitrofurantoin Rash 01/27/2018 Other [place]-3s Anaphylaxis 01/27/2018 States it would be fatal [...] needed. 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 01/12/2019 Overview: Added automatically from request for josé luis epnaery [id number] Obesity (BMI 30-39.9) 12/16/2018 Recurrent UTI 05/17/2018 [...] Added automatically from request for ordonez konrad [id number] documented as of this encounter (statuses as [...] Signs Reading Time Taken Comments Vital Sign 131/81 08/30/2019 8:53 AM CDT Blood Pressure 61 08/30/2019 8:53 AM CDT Pulse 36.5 C (97.7 F) 08/30/2019 8:53 AM CDT Temperature 18 08/30/2019 8:53 AM CDT Respiratory Rate 96% 08/30/2019 8:53 AM CDT RA Oxygen Saturation - - Inhaled Oxygen Concentration 81.6 kg (180 lb) 08/30/2019 8:53 AM CDT Weight - - Height 34.01 08/18/2019 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 She has a hx of falls although denies any recent falls with trauma to hand. Per she does have abnormal movements of the wrist during the seizure-type ep isodes which increases her pain. She claims of radiation to her right elbow and shoulder. Denies numbness/tingling, redness but does admit to mind swelling. She takes Tylenol for pain and uses an bharti bandage for support. She had a loop recorder placed on 08/18 and claims the site is now infected. Paul es fevers/chills, tenderness around left chest or discharge. Review of Systems Constitutional: Negative for chills and fever. HENT: Negative for facial swelling. Eyes: Negative for visual disturbance. Respiratory: Positive for shortness of breath (chronic). Negative for cough. Breasts: Negative for pain. Cardiovascular: Negative for chest pain and palpitations. Gastrointestinal: Negative for abdominal pain. Musculoskeletal: Positive for arthralgias, gait problem and joint swelling. Nega tive for neck pain. Skin: Positive for wound. Neurological: Positive for seizures (pseudo). Psychiatric/Behavioral: Positive for behavioral problems. Past Medical History: Past Medical History: Diagnosis Date Depression Frequent falls Hyperlipidemia Hypertension IBS (irritable bowel syndrome) Low back pain Osteoporosis b/l hip Seizure (nonepileptic psychogenic) Allergies: Allergies Allergen Reactions Pcn [Penicillins] Other [...] "swelling internally" per patient Nitrofurantoin Rash Other [place]-3s Anaphylaxis Shellfish Derived Other - See comments Sulfamethizole Rash BActrim Rash Doxycycline Rash Medications: Current Outpatient Medications Medication Sig SERTraline 50 mg tablet Take one and a half tablets daily for two weeks. The n increase to two tablets daily. VITAMIN D3 10 mcg (400 unit) tablet Take 1 tablet by mouth daily. fluticasone propionate 50 mcg/actuation nasal spray Use 1 [place] in each nost ril 2 (two) times daily. cannabidiol, CBD, (CANNABIDIOL ORAL) Take by mouth 3 (three) times daily as needed. hydrOXYzine 25 mg tablet Take 25 mg by mouth 2 (two) times daily. gabapentin 400 mg [...] Take 10 mg by mouth every morning. Past Surgical History: Past Surgical History: Procedure Laterality Date CHOLECYSTECTOMY HYSTERECTOMY MEDIAL BRANCH BLOCK (SHX) Right 01/23/2019 Surgeon: Sukh Harris MD; Location: [facility] RADIOFREQUENCY THERMOCOAGULATION N/A 02/15/2019 Surgeon: Sukh Harris MD; Location: [facility] TONSILLECTOMY Family History: Family History Problem Relation Age of Onset Heart Mother Hypertension Mother Diabetes Father Hypertension Father Social History: Social History Tobacco Use Smoking status: Never Smoker Smokeless tobacco: Never Used Substance Use Topics Alcohol use: No Drug use: No OBJECTIVE Vitals: Blood pressure 131/81, pulse 61, temperature 36.5 C (97.7 F), temper ature source Oral, resp. rate 18, weight 81.6 kg (180 lb), SpO2 96 %. Physical Exam Cardiovascular: Normal rate and regular rhythm. No murmur heard. Pulmonary/Chest: Effort normal and breath sounds normal. No respiratory distress . Musculoskeletal: Right shoulder: She exhibits no tenderness, no swelling and normal strength . Right elbow: She exhibits normal range of motion, no swelling and no deform ity. No tenderness found. Right wrist: She exhibits tenderness, bony tenderness and swelling (minimal ). She exhibits normal range of motion (ROM noted to be intact with distreacted observation ), no crepitus, no deformity and no laceration. Left wrist: Normal. Labs/Radiology: reviewed ASSESSMENT & PLAN John Nieto is a 64 year old female presents to clinic today for: 1. Right wrist pain 2. Compulsive behavior disorder 3. Primary osteoarthritis of right wrist Patient has compulsive behaviors during her seizure-type episodes that are likel y worsening her possible underlying osteoarthritis. Addressed goal of primary pr evention of pseudo-seizure with psychiatry-CBT. No concern for trauma with normal physical exam when distracted. - c/w Tylenol use and avoid NSAIDs - can use RICE therapy for arthritis related swelling Follow-up: As needed Discussed and saw patient with Dr. Santos Rivero D.O. Department of Internal Medicine PGY-2, [facility] Team Doctor's Number: [id number] Pager: [phone] documented in this encounter Plan of Treatment Care Team Description Date Type Specialty Laurie Hull LPC [address] [place] [address] 08/31/2019 Office Visit Psychiatry Boom Santiago MD [address] [place] [address]. [place] [address] Provider, [facility], [facility] Cardiac Proc Room 09/05/2019 Appointment Cardiac Electrophys iology Zoila Rodas AGNP [address] [place] [address] [phone] 09/06/2019 Office Visit Nephrology Kashif Cee MD [address] [place] [address]. [place] [phone] 09/14/2019 Office Visit Neurology Eleno Mcnamara MD [address] [place] [phone] 09/15/2019 Office Visit Obstetrics & Gyneco logy Nurse, Pcp Gen Med Nicole Team 10/17/2019 Nurse Visit Internal Medicine Beth Marquez MD [address] [place] [address]. [place] [address] 10/26/2019 Office Visit Psychiatry Marvin Oconnor MD [address] 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 [facility] [id number] [place] [address] documented as of this encounter
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
--- OUTSIDE RECORDS SUMMARY | 2019-11-09 10:08 | XMS REPORT | Summary of Care ---
Author Author [facility] - Health Organization [facility] - Health Address Unknown Phone Unavailable Care Team Providers Care Classification Counselor Name Role Phone Fabien Fernandes MD Unavailable Marvin Oconnor MD PCP Cady Team 25 Unavailable Reason for Referral * (Routine) Referred By Contact Referred To Contact Status Reason Specialty Diagnoses / Procedures Boom Santiago MD [address] [place] [phone] New Request Diagnoses Syncope, unspecified syncope type P rocedures Electrophysiology Lab Request for Service (Electrophysiology Use Only) Reason for Visit * Reason Comments Assessment ILR wound infection Encounter Details Care Team Description Date Type Department Boom Santiago MD [address] [place] [phone] Assessment (ILR wound infection) 08/29/2019 Telephone [facility] [address] [phone] Allergies Comments Active Allergy Reactions Severity Noted Date Azithromycin Itching 01/07/2019 Ciprofloxacin Rash 01/27/2018 Clindamycin Other - See Medium 10/05/2016 comments, Itching Clonazepam Itching, Medium 11/23/2017 Rash, Swelling All steroids-muscle weakness Corticosteroids Other - See 01/20/2016 (Glucocorticoids) comments Doxycycline Rash Low 08/21/2019 Iodine Rash 10/05/2016 "swelling internally" per patient Cephalexin Itching, Rash 08/18/2019 Lincomycin Rash Medium 09/15/2017 Nitrofurantoin Rash 01/27/2018 Other [place]-3s Anaphylaxis 01/27/2018 States it would be fatal Penicillins Other - See High 01/20/2016 comments, Shortness of Breath Shellfish Derived Other - See 03/18/2019 comments BActrim Rash Sulfamethizole Rash 07/05/2019 New string of tetanus- went to ER , medication for throat closing up Tetanus Vaccines And Swelling High 6 Toxoid documented as of this encounter (statuses as of 08/29/2019) Medications End Date Status Medication Sig Dispensed [...] needed. 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 01/12/2019 Overview: Added automatically from request for josé luis penaery [id number] Obesity (BMI 30-39.9) 12/16/2018 Recurrent UTI 05/17/2018 [...] as of this encounter (statuses as of 08/29/2019) Resolved Problems Problem Noted Date Resolved Date Spondylosis of lumbar region without myelopathy or radiculo johanna 01/12/2019 01/16/2019 Overview: Added automatically from request for josé luis penaery [id number] documented as of this encounter (statuses as of 08/29/2019) Immunizations Name Administration Dates Next Due Influenza [...] Type Specialty Unknown, Attending Fortunato Silver MD [address] [place] [phone] 08/30/2019 Office Visit Internal Medicine Laurie Hull LPC [address] [place] [address] 08/31/2019 Office Visit Psychiatry Boom Santiago MD [address] [place] [phone] Provider, Clc Ep Lab 2, Clc Cardiac Proc Room 09/05/2019 Appointment Cardiac Electrophys iology Zoila Rodas AGNP [address] [place] [address] [phone] 09/06/2019 Office Visit Nephrology Kashif Cee MD [address] [place] [phone] 09/14/2019 Office Visit Neurology Eleno Mcnamara MD [address] [place] [phone] 09/15/2019 Office Visit Obstetrics & Gyneco logy Nurse, Pcp Gen Med Nicole Team 10/17/2019 Nurse Visit Internal Medicine Beth Marquez MD [address] [place] [phone] 10/26/2019 Office Visit Psychiatry Marvin Oconnor MD [address] [place] [address] 11/09/2019 Office Visit Internal Medicine Sukh Harris MD [address] [id number] [place], [place] [address] 11/23/2019 Office Visit Pain Medicine Dieter Zhou MD [address] [id number] [place], [place] [phone] 01/03/2020 Office Visit Pulmonary Disease Health Maintenance [...] Visit Diagnoses Diagnosis Syncope, unspecified syncope type - Magaly brad documented in this encounter Insurance Type Payer Benefit Subscriber ID Effective Phone Address Plan / Dates Group [facility] [id number] 2019-P [address] [facility] [address] [place] [address] documented as of this encounter
--- OUTSIDE RECORDS SUMMARY | 2019-11-09 10:08 | XMS REPORT | Summary of Care ---
Author Author [facility] - Health Organization [facility] - Health Address Unknown Phone Unavailable Care Team Providers Care Compensation Programs Manager Name Role Phone Fabien Fernandes MD Unavailable Marvin Oconnor MD PCP Ulysses Lazar 25 Unavailable Reason for Visit * Reason Comments Hand Pain RT hand x 1 week Encounter Details Care Team Description Date Type Department Unknown, Attending Sanket Rivero, [address] [place] [address]. [place] [phone] Right wrist pain (Primary Dx); Compulsive behavior disorder; Primary osteoarthritis of right wrist 08/30/[address] [facility] [address], [address] [place] [address] Allergies Comments Active Allergy Reactions Severity Noted Date Azithromycin Itching 01/07/2019 Ciprofloxacin Rash 01/27/2018 Clindamycin Other - See Medium 10/05/2016 comments, Itching Clonazepam Itching, Medium 11/23/2017 Rash, Swelling All steroids-muscle weakness Corticosteroids Other - See 01/20/2016 (Glucocorticoids) comments Doxycycline Rash Low 08/21/2019 Iodine Rash 10/05/2016 "swelling internally" per patient Cephalexin Itching, Rash 08/18/2019 Lincomycin Rash Medium 09/15/2017 Nitrofurantoin Rash 01/27/2018 Other [place]-3s Anaphylaxis 01/27/2018 States it would be fatal [...] needed. 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 The n increase to two tablets daily. VITAMIN D3 10 mcg (400 unit) tablet Take 1 tablet by mouth daily. fluticasone propionate 50 mcg/actuation nasal spray Use 1 [place] in each nost ril 2 (two) times [...] Right 01/23/2019 Surgeon: Sukh Harris MD; Location: [facility] RADIOFREQUENCY THERMOCOAGULATION N/A 02/15/2019 Surgeon: Sukh Harris MD; Location: [facility] TONSILLECTOMY Family History: Family History Problem Relation [...] Rivero D.O. Department of Internal Medicine PGY-2, [facility] Team Doctor's Number: [phone] Pager: [phone] documented in this encounter Plan of Treatment Care Team Description Date Type Specialty Laurie Hull LPC [address] [address] 08/31/2019 Office Visit Psychiatry Boom Santiago MD [address] [place] [address]. [place] [phone] Provider, Chris Ep Lab 2, Clc Cardiac Proc Room 09/05/2019 Appointment Cardiac Electrophys iology Zoila Rodas AGNP [address] [place] [address] [phone] 09/06/2019 Office Visit Nephrology Kashif Cee MD [address] [place] [address]. [place] [phone] 09/14/2019 Office Visit Neurology Eleno Mcnamara MD [address] [place] [phone] 09/15/2019 Office Visit Obstetrics & Gyneco logy Nurse, Pcp Gen Med Nicole Team 10/17/2019 Nurse Visit Internal Medicine Beth Marquez MD [address] [place] [address]. [place] [phone] 10/26/2019 Office Visit Psychiatry Marvin Oconnor MD [address] [place], [place] [phone] 11/09/2019 Office Visit Internal Medicine Sukh Harris MD [address] [facility] [id number] [place], [place] [address] 11/23/2019 Office Visit Pain Medicine Dieter Zhou MD [address] [facility] [id number] [place], [place] [address] 01/03/2020 Office Visit Pulmonary Disease Health Maintenance [...] Effective Phone Address Plan / Dates Group [facility] [id number] 2019-P [address] [facility] [id number] [place] [address] documented as of this encounter
--- OUTSIDE RECORDS SUMMARY | 2019-11-09 10:08 | XMS REPORT | Summary of Care ---
Author Author [facility] - Health Organization [facility] - Health Address Unknown Phone Unavailable Care Team Providers Care Hat Measurer Name Role Phone Fabien Fernandes MD Unavailable Marvin Oconnor MD PCP Cady Team 25 Unavailable Reason for Visit * Reason Comments Assessment Encounter Details Care Team Description Date Type Department Boom Santiago MD [address] [place] [phone] Assessment 08/31/2019 Telephone [facility] [employer] Cardiol [address] [phone] Allergies Comments Active Allergy Reactions Severity Noted Date Azithromycin Itching 01/07/2019 Ciprofloxacin Rash 01/27/2018 Clindamycin Other - See Medium 10/05/2016 comments, Itching Clonazepam Itching, Medium 11/23/2017 Rash, Swelling All steroids-muscle weakness Corticosteroids Other - See 01/20/2016 (Glucocorticoids) comments Doxycycline Rash Low 08/21/2019 Iodine Rash 10/05/2016 "swelling internally" per patient Cephalexin Itching, Rash 08/18/2019 Lincomycin Rash Medium 09/15/2017 Nitrofurantoin Rash 01/27/2018 Other [place]-3s Anaphylaxis 01/27/2018 States it would be fatal Penicillins Other - See High 01/20/2016 comments, Shortness of Breath Shellfish Derived Other - See 03/18/2019 comments BActrim Rash Sulfamethizole Rash 07/05/2019 New string of tetanus- went to ER , medication for throat closing up Tetanus Vaccines And Swelling High 6 Toxoid documented as of this encounter (statuses as of 08/31/2019) Medications End Date Status Medication Sig Dispensed [...] needed. Active fluticasone propionate 50 Use 1 [place] 16 g 0 mcg/actuation nasal in each [...] by mouth 2 0 (two) times daily. 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 01/12/2019 Overview: Added automatically from request for josé luis penaery [id number] Obesity (BMI 30-39.9) 12/16/2018 Recurrent UTI 05/17/2018 [...] as of this encounter (statuses as of 08/31/2019) Resolved Problems Problem Noted Date Resolved Date Spondylosis of lumbar region without myelopathy or radiculo johanna 01/12/2019 01/16/2019 Overview: Added automatically from request for josé luis penacarrie [id number] documented as of this encounter (statuses as of 08/31/2019) Immunizations Name Administration Dates Next Due Influenza [...] Date Type Specialty Boom Santiago MD [address] [place] [phone] Provider, Chris Ep Lab 2, Clc Cardiac Proc Room 09/05/2019 Appointment Cardiac Electrophys iology Zoila Rodas AGNP [address] [place] [address] [phone] 09/06/2019 Office Visit Nephrology Kashif Cee MD [address] [place] [phone] 09/14/2019 Office Visit Neurology Eleno Mcnamara MD [address] [place] [phone] 09/15/2019 Office Visit Obstetrics & Gyneco logy Nurse, Pcp Gen Med Nicole Team 10/17/2019 Nurse Visit Internal Medicine Beth Marquez MD [address] [place] [address]. [place] [phone] 10/26/2019 Office Visit Psychiatry Marvin Oconnor MD [address] [place] [address] Dr. [address] [place] [address] [phone] 11/09/2019 Office Visit Internal Medicine Sukh Harris MD [address] [place] [address] [id number] [place], [place] [phone] 11/23/2019 Office Visit Pain Medicine Dieter Zhou MD [address] [place] [address] [id number] [place], [place] [phone] 01/03/2020 Office Visit Pulmonary Disease Health Maintenance [...] Phone Address Plan / Dates Group HMO [facility] [id number] 2019-P [address] [facility] [id number] [place] [address] documented as of this encounter
--- OUTSIDE RECORDS SUMMARY | 2019-11-09 10:09 | XMS REPORT | Summary of Care ---
Author Author [facility] - Health Organization [facility] - Health Address Unknown Phone Unavailable Care Team Providers Care Official Court Reporter Name Role Phone Fabien Fernandes MD Unavailable Marvin Oconnor MD PCP Cady Team 25 Unavailable Encounter Details Care Team Description Date Type Department Boom Santiago MD [address] [place] [phone] 09/18/2019 Patient Secure [facility] Cardiol lizzie, [address] [phone] Allergies Comments Active Allergy Reactions Severity Noted Date Azithromycin Itching 01/07/2019 Ciprofloxacin Rash 01/27/2018 Clindamycin Other - See Medium 10/05/2016 comments, Itching Clonazepam Itching, Medium 11/23/2017 Rash, Swelling All steroids-muscle weakness Corticosteroids Other - See 01/20/2016 (Glucocorticoids) comments Doxycycline Rash Low 08/21/2019 Iodine Rash 10/05/2016 "swelling internally" per patient Cephalexin Itching, Rash 08/18/2019 Lincomycin Rash Medium 09/15/2017 Nitrofurantoin Rash 01/27/2018 Other [place]-3s Anaphylaxis 01/27/2018 States it would be fatal Penicillins Other - See High 01/20/2016 comments, Shortness of Breath Shellfish Derived Other - See 03/18/2019 comments BActrim Rash Sulfamethizole Rash 07/05/2019 New string of tetanus- went to ER , medication for throat closing up Tetanus Vaccines And Swelling High 6 Toxoid documented as of this encounter (statuses as of 09/18/2019) Medications End Date Status Medication Sig Dispensed [...] needed. Active fluticasone propionate 50 Use 1 [place] 16 g 0 mcg/actuation nasal in each 0 sprayIndications: Viral nostril 2 URI with cough (two) times daily. Active VITAMIN D3 10 mcg (400 Take 1 tablet 0 02 unit) tablet by mouth 0 daily. Active cefUROXime 250 mg tablet Take [...] Cellulitis of chest wall (two) times daily. Active SERTraline 100 mg Take 1 tablet 30 tablet 1 tabletIndications: by mouth 0 Psychogenic nonepileptic daily. 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 01/12/2019 Overview: Added automatically from request for josé luis silvestre [id number] Obesity (BMI 30-39.9) 12/16/2018 Recurrent UTI 05/17/2018 [...] as of this encounter (statuses as of 09/18/2019) Resolved Problems Problem Noted Date Resolved Date Spondylosis of lumbar region without myelopathy or radiculo johanna 01/12/2019 01/16/2019 Overview: Added automatically from request for josé luis silvestre [id number] documented as of this encounter (statuses as of 09/18/2019) Immunizations Name Administration Dates Next Due Influenza [...] Treatment Care Team Description Date Type Specialty Outpt-Anna, Pacemaker/Icd 09/19/2019 Appointment Cardiac Electrophys iology Zoila Rodas AGNP [address] [place] [address] [phone] 09/27/2019 Telemedicine Nephrology Visit Laurie Hull LPC [address] [place], [place] [phone] 09/28/2019 Telemedicine Psychiatry Visit Nurse, Pcp Gen Med Nicole Team 10/17/2019 Nurse Visit Internal Medicine Eleno Mcnamara MD [address] [place] [address] [phone] 10/20/2019 Office Visit Obstetrics & Gyneco Kashif Linares MD [address] [place] [address]. [place] [phone] 10/26/2019 Office Visit Neurology Beth Marquez MD [address] [place] [address]. [place] [phone] 10/26/2019 Telemedicine Psychiatry Visit Marvin Oconnor MD [address] [place], [place] [phone] 11/09/2019 Office Visit Internal Medicine Sukh Harris MD [address] [place] [address] [id number] [place], [place] [address] 11/23/2019 Office Visit Pain Medicine Dieter Zhou MD [address] [place] [address] [id number] [place], [place] [address] 01/03/2020 Office Visit Pulmonary Disease Health Maintenance [...] on file) documented as of this encounter Results Not on filedocumented in this encounter Insurance Type Payer Benefit Subscriber ID Effective Phone Address Plan / Dates Group [facility] [id number] 2019-P [address] [employer] [facility] [id number] [place] [address] documented as of this encounter
--- OUTSIDE RECORDS SUMMARY | 2019-11-09 10:09 | XMS REPORT | Summary of Care ---
Author Author [facility] - Health Organization [facility] - Health Address Unknown Phone Unavailable Care Team Providers Care Maintenance Service Dispatcher Name Role Phone Fabien Fernandes MD Unavailable Marvin Oconnor MD PCP Cady Team 25 Unavailable Encounter Details Care Team Description Date Type Department Boom Santiago MD [address] [place] [phone] 09/18/2019 Patient Secure [facility] Cardiol lizzie, [address] [phone] Allergies Comments Active Allergy Reactions Severity Noted Date Azithromycin Itching 01/07/2019 Ciprofloxacin Rash 01/27/2018 Clindamycin Other - See Medium 10/05/2016 comments, Itching Clonazepam Itching, Medium 11/23/2017 Rash, Swelling All steroids-muscle weakness Corticosteroids Other - See 01/20/2016 (Glucocorticoids) comments Doxycycline Rash Low 08/21/2019 Iodine Rash 10/05/2016 "swelling internally" per patient Cephalexin Itching, Rash 08/18/2019 Lincomycin Rash Medium 09/15/2017 Nitrofurantoin Rash 01/27/2018 Other [place]-3s Anaphylaxis 01/27/2018 States it would be fatal [...] needed. 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 01/12/2019 Overview: Added automatically from request for josé luis silvestre [id number] Obesity (BMI 30-39.9) 12/16/2018 Recurrent UTI 05/17/2018 [...] automatically from request for josé luis silvestre [id number] documented as of this encounter (statuses as [...] Appointment Cardiac Electrophys iology Zoila Rodas AGNP [address] [place] [address] [phone] 09/27/2019 Telemedicine Nephrology Visit Laurie Hull LPC [address] [place], [place] [phone] 09/28/2019 Telemedicine Psychiatry Visit Nurse, Pcp Gen Med Nicole Team 10/17/2019 Nurse Visit Internal Medicine Eleno Mcnamara MD [address] [place] [address] [phone] 10/20/2019 Office Visit Obstetrics & Gyneco Kashif Linares MD [address] [place] [address]. [place] [phone] 10/26/2019 Office Visit Neurology Beth Marquez MD [address] [place] [address]. [place] [phone] 10/26/2019 Telemedicine Psychiatry Visit Marvin Oconnor MD [address] [place], [place] [phone] 11/09/2019 Office Visit Internal Medicine Sukh Harris MD [address] [place] [address] [id number] [place], [place] [phone] 11/23/2019 Office Visit Pain Medicine Dieter Zhou MD [address] [place] [address] [id number] [place], [place] [phone] 01/03/2020 Office Visit Pulmonary Disease Health Maintenance [...] Phone Address Plan / Dates Group O [facility] [id number] 2019-P [address] [facility] [id number] [place] [address] documented as of this encounter
--- OUTSIDE RECORDS SUMMARY | 2019-11-09 10:09 | XMS REPORT | Summary of Care ---
Author Author [facility] - Health Organization [facility] - Health Address Unknown Phone Unavailable Care Team Providers Care Finish Machine Tender Name Role Phone Fabien Fernandes MD Unavailable Marvin Oconnor MD PCP Ulysses Lazar 25 Unavailable Reason for Visit * Reason Comments Appointment new patient / Jaye Encounter Details Care Team Description Date Type Department Kashif Cee MD [address] [place] [phone] Appointment (new patient / Jaye) 09/08/[address] [facility], [facility] [address] [place] [phone] Allergies Comments Active Allergy Reactions Severity Noted Date Azithromycin Itching 01/07/2019 Ciprofloxacin Rash 01/27/2018 Clindamycin Other - See Medium 10/05/2016 comments, Itching Clonazepam Itching, Medium 11/23/2017 Rash, Swelling All steroids-muscle weakness Corticosteroids Other - See 01/20/2016 (Glucocorticoids) comments Doxycycline Rash Low 08/21/2019 Iodine Rash 10/05/2016 "swelling internally" per patient Cephalexin Itching, Rash 08/18/2019 Lincomycin Rash Medium 09/15/2017 Nitrofurantoin Rash 01/27/2018 Other [place]-3s Anaphylaxis 01/27/2018 States it would be fatal Penicillins Other - See High 01/20/2016 comments, Shortness of Breath Shellfish Derived Other - See 03/18/2019 comments BActrim Rash Sulfamethizole Rash 07/05/2019 New string of tetanus- went to ER , medication for throat closing up Tetanus Vaccines And Swelling High 6 Toxoid documented as of this encounter (statuses as of 09/08/2019) Medications End Date Status Medication Sig Dispensed [...] needed. Active fluticasone propionate 50 Use 1 [place] 16 g 0 mcg/actuation nasal in each [...] Cellulitis of chest wall (two) times daily. 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 01/12/2019 Overview: Added automatically from request for josé luis silvestre [id number] Obesity (BMI 30-39.9) 12/16/2018 Recurrent UTI 05/17/2018 [...] as of this encounter (statuses as of 09/08/2019) Resolved Problems Problem Noted Date Resolved Date Spondylosis of lumbar region without myelopathy or radiculo johanna 01/12/2019 01/16/2019 Overview: Added automatically from request for josé luis silvestre [id number] documented as of this encounter (statuses as of 09/08/2019) Immunizations Name Administration Dates Next Due Influenza [...] Team Description Date Type Specialty Pacemaker/Icd, Clc 09/19/2019 Appointment Cardiac Electrophys iology Zoila Rodas AGNP [address] [place] [address] [phone] 09/27/2019 Office Visit Nephrology Laurie Hull LPC [address] [place], [place] [phone] 09/28/2019 Telemedicine Psychiatry Visit Nurse, Pcp Gen Med Nicole Team 10/17/2019 Nurse Visit Internal Medicine Eleno Mcnamara MD [address] [place] [address] [phone] 10/20/2019 Office Visit Obstetrics & Gyneco Kashif Linares MD [address] [place] [phone] 10/26/2019 Office Visit Neurology Beth Marquez MD [address] [place] [phone] 10/26/2019 Office Visit Psychiatry Marvin Oconnor MD [address] [place], [place] [phone] 11/09/2019 Office Visit Internal Medicine Sukh Harris MD [address] [place] [address] [id number] [place], [place] [phone] 11/23/2019 Office Visit Pain Medicine Zhou, Dieter George, MD [id number] [place], [place] [phone] 01/03/2020 Office Visit Pulmonary Disease Health Maintenance [...] Phone Address Plan / Dates Group O [facility] [id number] 2019-P [address] [employer] [facility] [id number] [place] [address] documented as of this encounter
--- OUTSIDE RECORDS SUMMARY | 2019-11-09 10:09 | XMS REPORT | Summary of Care ---
Author Author [facility] - Health Organization [facility] - Health Address Unknown Phone Unavailable Care Team Providers Care Biostatistician Name Role Phone Fabien Fernandes MD Unavailable Marvin Oconnor MD PCP Cady Team 25 Unavailable Reason for Visit * (Routine) Referred By Contact Referred To Contact Status Reason Specialty Diagnoses / Procedures Boom Santiago MD [address] [place] [phone] [facility] [address] [place] [phone] Closed IM-CARDIOVASCULA Diagnoses R DISEASE / Syncope and Cardiac collapse Electrophysiolog MARIA DE JESUS-ILR REMOVAL y P rocedures SC REMOVAL SUBCUTANEOUS CARDIAC RHYTHM MONITOR STRUCTURAL HEART Encounter Details Care Team Description Date Type Department Boom Santiago MD [address] [place] [phone] Provider, Chris Ep Lab 2, [facility] Cardiac Proc Room 09/05/2019 [facility] enter Encounter - Heart Station, [address] [phone] Allergies Comments Active Allergy Reactions Severity Noted Date Azithromycin Itching 01/07/2019 Ciprofloxacin Rash 01/27/2018 Clindamycin Other - See Medium 10/05/2016 comments, Itching Clonazepam Itching, Medium 11/23/2017 Rash, Swelling All steroids-muscle weakness Corticosteroids Other - See 01/20/2016 (Glucocorticoids) comments Doxycycline Rash Low 08/21/2019 Iodine Rash 10/05/2016 "swelling internally" per patient Cephalexin Itching, Rash 08/18/2019 Lincomycin Rash Medium 09/15/2017 Nitrofurantoin Rash 01/27/2018 Other [place]-3s Anaphylaxis 01/27/2018 States it would be fatal Penicillins Other - See High 01/20/2016 comments, Shortness of Breath Shellfish Derived Other - See 03/18/2019 comments BActrim Rash Sulfamethizole Rash 07/05/2019 New string of tetanus- went to ER , medication for throat closing up Tetanus Vaccines And Swelling High 6 Toxoid documented as of this encounter (statuses as of 09/06/2019) Medications End Date Status Medication Sig Dispensed [...] needed. Active fluticasone propionate 50 Use 1 [place] 16 g 0 mcg/actuation nasal in each [...] by mouth 2 0 (two) times daily. 09/05/2019 Discontinued (Reorder) famotidine 40 mg tablet Take 40 mg by 0 mouth 2 (two) 8 times daily. 09/05/2019 Discontinued (Reorder) hydrOXYzine 25 mg tablet Take 50 mg by 0 mouth 2 (two) times daily. 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 01/12/2019 Overview: Added automatically from request for josé luis penaery [id number] Obesity (BMI 30-39.9) 12/16/2018 Recurrent UTI 05/17/2018 [...] as of this encounter (statuses as of 09/06/2019) Resolved Problems Problem Noted Date Resolved Date Spondylosis of lumbar region without myelopathy or radiculo johanna 01/12/2019 01/16/2019 Overview: Added automatically from request for ordonez rgery [id number] documented as of this encounter (statuses as of 09/06/2019) Immunizations Name Administration Dates Next Due Influenza [...] Signs Reading Time Taken Comments Vital Sign 109/56 09/05/2019 12:00 PM CDT Blood Pressure 58 09/05/2019 12:00 PM CDT Pulse - - Temperature 16 09/05/2019 12:00 PM CDT Respiratory Rate 94% 09/05/2019 12:00 PM CDT Oxygen Saturation - - Inhaled Oxygen Concentration - - Weight - - Height - - Body Mass Index documented in this encounter Plan of Treatment Care Team Description Date Type Specialty Kashif Cee MD [address] [place] [address]. [place] [phone] 09/14/2019 Office Visit Neurology Eleno Mcnamara MD [address] [place] [address] [phone] 09/15/2019 Office Visit Obstetrics & Gyneco logy Pacemaker/Icd, Clc 09/19/2019 Appointment Cardiac Electrophys iology Nurse, Pcp Gen Med Nicole Team 10/17/2019 Nurse Visit Internal Medicine Beth Marquez MD [address] [place] [address]. [place] [phone] 10/26/2019 Office Visit Psychiatry Marvin Oconnor MD [address] [place] [address] [place], [place] [phone] 11/09/2019 Office Visit Internal Medicine Sukh Harris MD [address] [id number] [place], [place] [address] 11/23/2019 Office Visit Pain Medicine Dieter Zhou MD [address] [id number] [place], [place] [phone] 01/03/2020 Office Visit Pulmonary Disease Health Maintenance [...] Results Not on filedocumented in this encounter Administered Medications Action Date Dose Rate Site Medication Order MAR Action 09/05/2019 10:45 AM CDT 25 mcg FENTanyl PF (SUBLIMAZE (PF)) injection Given Slow IV Push, TITRATE - FOR PROCEDURE USE, 1 dose, Starting 09/05/19 at 1045, Until 09/05/19 at 1045, Routin e 09/05/2019 10:49 AM CDT 15 mL lidocaine 1% (PF) (XYLOCAINE) injection Given Infiltration, TITRATE - FOR PROCEDURE USE, 1 dose, Starting 09/05/19 at 1049, Until 09/05/19 at 1049, Routin e 09/05/2019 10:45 AM CDT 1 mg midazolam (VERSED) injection Given IV Push, TITRATE - FOR PROCEDURE USE, 1 dose, Starting 09/05/19 at 1045, Until Tu09/05/19 at 1045, Routine 09/05/2019 10:52 AM CDT 1 mg midazolam (VERSED) injection Given IV Push, TITRATE - FOR PROCEDURE USE, 1 dose, Starting Wed09/05/19 at 1052, Until Wed09/05/19 at 1052, Routine 09/05/2019 11:00 AM CDT 1 g See Comm ent vancomycin 1 g in NS 200 mL RTU IV Given Piggyback IV Piggyback, TITRATE - FOR PROCEDURE USE, 1 dose, Starting Wed09/05/19 at 1100, Until Wed09/05/19 at 1100 documented in this encounter Insurance Type Payer Benefit Subscriber ID Effective Phone Address Plan / Dates Group [facility] [id number] 2019-P [address] [facility] [id number] [place] [address] documented as of this encounter
--- OUTSIDE RECORDS SUMMARY | 2019-11-09 10:09 | XMS REPORT | Clinical Summary ---
Author Author [facility] - Health Organization [facility] - Health Address Unknown Phone Unavailable Care Team Providers Care Handstitching Machine Armhole Feller Name Role Phone Fabien Fernandes MD Unavailable [...] Rash Medium 09/15/2017 Nitrofurantoin Rash 01/27/2018 Other [place]-3s Anaphylaxis 01/27/2018 States it would be fatal [...] needed. Active fluticasone propionate 50 Use 1 [place] 16 g 0 mcg/actuation nasal in each [...] by mouth 0 Psychogenic nonepileptic daily. 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 01/12/2019 Overview: Added automatically from request for ordonez rgery [id number] Obesity (BMI 30-39.9) 12/16/2018 Recurrent UTI 05/17/2018 [...] automatically from request for josé luis silvestre [id number] Encounters Care Team Description Date Type Specialty Boom Santiago MD Appointment; Talk To Nurse 09/08/2019 Telephone Cardiology Kashif Cee MD Appointment (new patient / Jaye) 09/08/2019 Telephone Neurology Boom Santiago MD Provider, Chris Ep Lab 2, Clc Cardiac Proc Room 09/05/2019 Hospital Cardiac Electrophys iology Encounter Giuliano Edwards DO Armstrong, Robin, MD Altered mental status 09/04/2019 Emergency Medicine - Inpatien t only - 09/05/2019 Boom Santiago MD Assessment 08/31/2019 Telephone Cardiology Unknown, Attending Sanket Rivero DO Right wrist pain (Primary Dx); Compulsive behavior disorder; Primary osteoarthritis of right wrist 08/30/2019 Office Visit Internal Medicine Joseph Kat MD Pacemaker/Icd, Clc Marvin Oconnor MD Syncope, unspecified syncope type 08/29/2019 Hospital Cardiac Electrophys iology Encounter Boom Santiago MD Assessment (ILR wound infection) 08/29/2019 Telephone Cardiac Electrophys iology Boom Santiago MD Assessment 08/23/2019 Telephone Cardiology Boom Santiago MD Assessment; Rx Concern/Question 08/21/2019 Telephone Cardiology Boom Santiago MD Provider, Chris Ep Lab Area, Clc Holding Psychogenic nonepileptic seizure (Primar y Dx); Status post placement of implantable loop recorder 08/18/2019 Hospital Cardiac Electrophys iology Encounter Boom Santiago MD Appointment 08/17/2019 Telephone Cardiac Tdp Displays Analyst Marvin Oconnor MD Lab Results 08/17/2019 Telephone Internal BaileyMarvin Oconnor MD Viral URI with cough (Primary [...] Telephone Internal Medicine Dieter Zhou MD Test, Vt Pulmonary Function Dyspnea on exertion 07/28/2019 Management Department Chair Pulmonary Function Visit Technologist Doctor Unassigned, [place] 07/28/2019 Orders Only Marvin Oconnor MD Results 07/27/2019 Telephone Internal BaileyMarvin Oconnor MD Pcp-Lab Osteoporosis without current pathologica l fracture, unspecified osteoporosis type; Dysuria 07/26/2019 Management Department Chair Phlebotomy Visit Marvin Oconnor MD Osteoporosis without current pathologica l fracture, unspecified osteoporosis type (Primary Dx); Dysuria; Need for shingles vaccine; Chronic pain of right ankle 07/26/2019 Office Visit Internal Medicine Boom Santiago MD Palpitations (Primary Dx) 07/20/2019 Office Visit Cardiology Doctor Unassigned, [place] 07/17/2019 Orders Only Marvin Oconnor MD Results 07/14/2019 Telephone Internal BaileyMarvin Oconnor MD Pcp-Lab Dysuria 07/13/2019 Management Department Chair Phlebotomy Visit Marvin Oconnor MD Dysuria (Primary [...] Fernandes MD Pcp-Lab Urinary frequency; Dysuria 06/30/2019 Management Department Chair Phlebotomy Visit Unknown, Attending Yudy Fernandes MD Castillo, Jorge, MD Urinary frequency (Primary Dx); Dysuria; Convulsions, unspecified convulsion type 06/30/2019 Office Visit Internal Medicine Goldie Culver RN 06/29/2019 Abstract Public Health [facility] Preventive Medicine Doctor Unassigned, [place] 06/22/2019 Orders Only Eleno Mcnamara MD Notification (of medication filled) 06/19/2019 Telephone Obstetrics & Gyneco logy Eleno Mcnamara MD Recurrent UTI (urinary tract infection) (Primary Dx) 06/16/2019 Office Visit Obstetrics & Gyneco logy from Last 3 Months Immunizations Name Administration [...] 09/04/2019 7:20 AM CDT Body Mass Index Plan of Treatment Care Team Description Date Type Specialty Outpt-Anna, Pacemaker/Icd 09/19/2019 Appointment Cardiac Electrophys iology Zoila Rodas AGNP [address] [place] [address] [id number] 09/27/2019 Telemedicine Nephrology Visit Nurse, Pcp Gen Med Corey Team 10/17/2019 Nurse Visit Internal Medicine Eleno Mcnamara MD [address] [place] [address] [id number] 10/20/2019 Office Visit Obstetrics & Gyneco Kashif Linares MD [address] [place] [address]. [place] [address] 10/26/2019 Office Visit Neurology Marvin Oconnor MD [address] [place], [place] [phone] 11/09/2019 Office Visit Internal Medicine Sukh Harris MD [id number] [place], [place] [address] 11/23/2019 Office Visit Pain Medicine Dieter Zhou MD [address] [place] [address] [id number] [place] [address] [phone] 01/03/2020 Office Visit Pulmonary Disease Health Maintenance Due Date Last Done Comments HEPATITIS C (HCV) SCREEN 1955 Breast Cancer Screening 08/08/2019 08/08/2018 (MAMMOGRAM) Zoster Recombinant 09/20/2019 07/26/2019 Vaccine (SHINGRIX) (2 of 2) PAP SMEAR 08/02/2021 08/02/2018 COLONOSCOPY 06/22/2023 06/22/2018, 017 INFLUENZA VACCINE Completed 04/17/2019, 018, 03/21/2017 DTaP,Tdap,and Td Vaccines Discontinued PNEUMOCOCCAL 0-64 YEARS Discontinued COMBINED SERIES Implants Device Identifier Shelf Expiration Date Model / Serial / L ot Implanted Type Area Manufactur er Loop Recorder-08/18/2019 Chest Implanted: 08/18/2019 (Quantity not on file) Procedures Comments Procedure Name Priority Date/Time Associated Diag nosis LIPID PANEL (76580)(TOTAL Routine 09/05/2019 CHOLESTEROL, 4:26 AM CDT TRIGLYCERIDES, HDL) GALV/CLC ONLY - URINE STAT 09/04/2019 Seizures DRUG (IMMUNOASSAY) - 4 ER 9:13 AM CDT PANEL URINALYSIS STAT 09/04/2019 Seizures 9:13 AM CDT XR CHEST 1 VW STAT 09/04/2019 Seizures 8:09 AM CDT EKG-12 LEAD Routine 09/04/2019 7:50 AM CDT LACTIC ACID WHOLE BLOOD STAT 09/04/2019 Seizur es 7:44 AM CDT BLOOD CULTURE SCREEN STAT 09/04/2019 Seizures 7:43 AM CDT BLOOD CULTURE SCREEN STAT 09/04/2019 Seizures 7:43 AM CDT GLYCOSYLATED HEMOGLOBIN Add-on 09/04/2019 (A1C) 7:39 AM CDT CBC WITH DIFFERENTIAL STAT 09/04/2019 Seizures 7:39 AM CDT ETHANOL STAT 09/04/2019 Seizures 7:39 AM CDT N-TERMINAL PRO-BNP STAT 09/04/2019 Seizures 7:39 AM CDT PROTHROMBIN TIME / INR STAT 09/04/2019 Seizure s 7:39 AM CDT ACTIVATED PARTIAL STAT 09/04/2019 Seizures THRMPLAS ULI 7:39 AM CDT TROPONIN I STAT 09/04/2019 Seizures 7:39 AM CDT HEPATIC FUNCTION PANEL STAT 09/04/2019 Seizure s ([id number]) (ALB,T.PRO,BILI 7:39 AM CDT T,BU/BC,ALT,AST,ALK PHOS) BASIC METABOLIC PANEL STAT 09/04/2019 Seizures (NA, K, CL, CO2, GLUCOSE, 7:39 AM CDT BUN, CREATININE, CA) CBC WITH DIFFERENTIAL Routine 09/04/2019 Seizures 7:39 AM CDT EKG-12 LEAD STAT 09/04/2019 7:32 AM CDT CONSENT/REFUSAL FOR Routine 09/04/2019 DIAGNOSIS AND TREATMENT 7:11 AM CDT HOSPITAL ADMISSION Routine 09/04/2019 12:01 AM CDT EXTERNAL PROVIDER RECORDS Routine 09/04/2019 12:01 AM CDT ILR DEVICE CHECK Routine 08/29/2019 12:00 AM CDT PROTHROMBIN TIME / INR Routine 08/18/2019 Psychog enic nonepileptic 12:00 PM METER READER INSPECTOR seizure NOTICE OF PRIVACY Routine 08/18/2019 PRACTICES 10:37 AM METER READER INSPECTOR CONSENT/REFUSAL FOR Routine 08/18/2019 DIAGNOSIS AND TREATMENT 10:36 AM METER READER INSPECTOR ASSIGNMENT OF BENEFITS Routine 08/18/2019 10:35 AM METER READER INSPECTOR EP PROCEDURES Routine 08/18/2019 12:01 AM METER READER INSPECTOR POCT FLU A AND B Routine 08/16/2019 Viral URI wit h cough (MOLECULAR) THYROID STIMULATING STAT 08/13/2019 Goiter HORMONE 9:02 PM METER READER INSPECTOR CBC WITH DIFFERENTIAL STAT 08/13/2019 Lower ab dominal pain 9:02 PM METER READER INSPECTOR TROPONIN I STAT 08/13/2019 Lower abdominal pain 9:02 PM METER READER INSPECTOR LIPASE STAT 08/13/2019 Lower abdominal pain 9:02 PM METER READER INSPECTOR HEPATIC FUNCTION PANEL STAT 08/13/2019 Lower a bdominal pain (34096) (ALB,T.PRO,BILI 9:02 PM METER READER INSPECTOR T,BU/BC,ALT,AST,ALK PHOS) BASIC METABOLIC PANEL STAT 08/13/2019 Lower ab dominal pain (NA, K, CL, CO2, GLUCOSE, 9:02 PM METER READER INSPECTOR BUN, CREATININE, CA) CBC WITH DIFFERENTIAL Routine 08/13/2019 Lower ab dominal pain 9:02 PM METER READER INSPECTOR CT ABDOMEN PELVIS WO STAT 08/13/2019 Lower abd ominal pain CONTRAST 8:19 PM METER READER INSPECTOR XR CHEST 1 VW STAT 08/13/2019 Lower abdominal pain 8:12 PM METER READER INSPECTOR URINALYSIS STAT 08/13/2019 Lower abdominal pain 7:56 PM METER READER INSPECTOR EKG-12 LEAD Routine 08/13/2019 7:52 PM METER READER INSPECTOR EKG-12 LEAD STAT 08/13/2019 7:48 PM METER READER INSPECTOR EKG-12 LEAD Routine 08/13/2019 6:37 PM METER READER INSPECTOR EMERGENCY SERVICES Routine 08/13/2019 AGREEMENTS AND 12:01 AM METER READER INSPECTOR AUTHORIZATIONS XR ANKLE 3+ VW RIGHT Routine 08/07/2019 Right mike t pain 1:50 PM METER READER INSPECTOR XR FOOT 3+ VW RIGHT Routine 08/07/2019 Right mike t pain 1:50 PM METER READER INSPECTOR EXTERNAL PROVIDER RECORDS Routine 08/04/2019 12:01 AM METER READER INSPECTOR PULMONARY FUNCTION TEST Routine 07/28/2019 (RESULTS) 10:43 AM METER READER INSPECTOR EXTERNAL PROVIDER RECORDS Routine 07/28/2019 12:01 AM METER READER INSPECTOR EXTERNAL PROVIDER RECORDS Routine 07/28/2019 12:01 AM METER READER INSPECTOR URINALYSIS Routine 07/26/2019 Dysuria 4:25 PM METER READER INSPECTOR VITAMIN D, 25-OH Routine 07/26/2019 Osteoporosis without 4:25 PM METER READER INSPECTOR current pathological fracture, unspecified osteoporosis type VARICELLA-ZOSTER VACCINE, Routine 07/26/2019 Need for shingles vaccine (SHINGRIX) 50 MCG/0.5 ML, 3:58 PM METER READER INSPECTOR IM EKG-12 LEAD Routine 07/20/2019 11:23 AM METER READER INSPECTOR EXTERNAL PROVIDER RECORDS Routine 07/17/2019 12:01 AM METER READER INSPECTOR URINE CULTURE Routine 07/13/2019 Dysuria 4:19 PM METER READER INSPECTOR URINALYSIS Routine 07/13/2019 Dysuria 4:19 PM METER READER INSPECTOR EXTERNAL PROVIDER RECORDS Routine 07/11/2019 12:01 AM METER READER INSPECTOR CBC WITH DIFFERENTIAL STAT 07/05/2019 Rash 1:35 PM METER READER INSPECTOR CBC WITH DIFFERENTIAL STAT 07/05/2019 Rash 1:35 PM METER READER INSPECTOR BASIC METABOLIC PANEL STAT 07/05/2019 Rash (NA, K, CL, CO2, GLUCOSE, 1:35 PM METER READER INSPECTOR BUN, CREATININE, CA) EMERGENCY SERVICES Routine 07/05/2019 AGREEMENTS AND 12:01 AM METER READER INSPECTOR AUTHORIZATIONS EXTRA TUBE URINE CULTURE Routine 07/02/2019 9:54 AM METER READER INSPECTOR URINALYSIS STAT 07/02/2019 Cough 9:54 AM METER READER INSPECTOR XR CHEST 1 VW STAT 07/02/2019 Cough 7:58 AM METER READER INSPECTOR EXTRA TUBE LT. BLUE STAT 07/02/2019 7:40 AM METER READER INSPECTOR CBC WITH DIFFERENTIAL STAT 07/02/2019 Cough 7:40 AM METER READER INSPECTOR COMP. METABOLIC PANEL STAT 07/02/2019 Cough (61319) 7:40 AM METER READER INSPECTOR CBC WITH DIFFERENTIAL Routine 07/02/2019 Cough 7:40 AM METER READER INSPECTOR CONSENT/REFUSAL FOR Routine 07/02/2019 DIAGNOSIS AND TREATMENT 7:08 AM METER READER INSPECTOR HOSPITAL ADMISSION Routine 07/02/2019 12:01 AM METER READER INSPECTOR URINALYSIS JAMES 06/30/2019 Urinary frequen cy 2:37 PM METER READER INSPECTOR Dysuria URINE CULTURE JAMES 06/30/2019 Urinary frequen cy 2:37 PM METER READER INSPECTOR Dysuria EXTERNAL PROVIDER RECORDS Routine 06/22/2019 12:01 AM METER READER INSPECTOR URINE CULTURE Routine 06/16/2019 Recurrent UTI ( urinary 11:12 AM METER READER INSPECTOR tract infection) POCT URINALYSIS Routine 06/16/2019 Recurrent UTI (urinary 11:05 AM METER READER INSPECTOR tract infection) from Last 3 Months Results * Lipid Panel (Total Cholesterol, Triglycerides, HDL) - Fasting (09/05/2019 4:26 AM CDT) CHOL 254 (H) 120 - 200 mg/dL [facility] Y [facility] HDL 38 (L) >50 mg/dL [facility] HDLC RATIO 6.7 (H) <=4.5 [facility] TRIG 285 (H) 30 - 170 mg/dL [facility] LDL CHOL 159 <=160 mg/dL [facility] VLDL 57 5 - 60 mg/dL [facility] Specimen Blood - VENOUS Performing Organization Address City/State/[facility] Ph one Number [facility] CLIA: [id number], [address] [place], [place] [address] [facility] * Urinalysis (09/04/2019 9:13 AM CDT) Only the most recent of 6 results within the time period is included. APPEARANCE Cloudy (A) Clear [facility] COLOR Yellow Yellow [facility] PH 6.0 4.8 - 8.0 [facility] SP GRAVITY 1.009 1.003 - 1.030 [facility] GLU U QUAL Normal Normal [facility] BLOOD Negative Negative [facility] KETONES Negative Negative [facility] PROTEIN Negative Negative [facility] UR[facility]ILIN Normal Normal [facility] BILIRUBIN Negative Negative [facility] NITRITE Negative Negative [facility] LEUK MICHAEL 250/uL (A) Negative [facility] RBC/HPF 0 0 - 3 HPF [facility] WBC/HPF 4 0 - 5 HPF [facility] BACTERIA Few (A) Negative [facility] MUCOUS Slight (A) Negative LPF [facility] SQ EPITH 2 <=2 HPF [facility] Specimen Urine - URINE, CLEAN CATCH Performing Organization Address [facility] one Number [facility] CLIA: [id number], [address] [place] [address] [address] [facility] * Drug Screen ER (09/04/2019 9:13 AM CDT) AMPHET Negative Negative [facility] Cocaine Negative Negative [facility] Metabolite [facility] OPIATES Negative Negative [facility] THC Negative Negative [facility] Specimen Urine - URINE, CLEAN CATCH Narrative Performed At Urine Drug Cutoff Ranges [facility] Amphetamine: 1,000 ng/mL [facility] Cocaine: 150 ng/mL [facility] Opiates: 300 ng/mL Cannabinoids: 50 ng/mL The results are to be used only for med ical (i.e., treatment) purposes. Unconfirmed screening results must not be used for non-medical purposes (e.g., employment testing, legal testing). Performing Organization Address [facility] one Number [facility] CLIA: [id number], [address] [place] [address] [facility] * Chest 1 View (09/04/2019 8:09 AM CDT) Only the most recent of 3 results within the time period is included. Specimen Narrative Performed At EXAM: XR CHEST 1 VW PACS/VR/DOSE HISTORY: weakness COMPARISON: None. FINDINGS: The heart and great vessels are normal and the lungs are satisfactorily expanded and clear except for minor bas ilar subsegmental atelectasis on the left. A loop recorder is superimposed u brittany the heart. Procedure Note [facility], Radiant Results Inft User - 09/04/2019 8:38 AM CDT EXAM: XR CHEST 1 VW HISTORY: weakness COMPARISON: None. FINDINGS: The heart and great vessels are normal and the lungs are satisfactorily expanded and clear except for minor basilar subsegmental atelectasis on the left. A loop recorder is superimposed upon the heart. Performing Organization Address City/[facility] Centercode Ph one Number PACS/VR/DOSE * EKG-12 LEAD (09/04/2019 7:50 AM CDT) Specimen Performing Organization Address [facility] Ph one Number HST * Lactic Acid Whole Blood (09/04/2019 7:44 AM CDT) LACTIC ACID 1.90 0.50 - 2.20 mmol/L [facility] Specimen Blood - VENOUS Performing Organization Address [facility] one Number [facility] CLIA: [id number], [address] [place], [place] [address] [address] [facility] * BLOOD CULTURE SCREEN (09/04/2019 7:43 AM CDT) Only the most recent of 2 results within the time period is included. Blood No organisms isolated No growth [facility] Culture-Aerobic Comment: [facility] Previous preliminary verified [facility] result was Culture In Progress on 09/04/2019 at 1601 CDT Previous preliminary verified result was No growth at 24 hours on 09/05/2019 at 1301 CDT Previous preliminary verified result was No growth at 48 hours on 09/06/2019 at 1301 CDT Previous preliminary verified result was No growth at 72 hours on 09/07/2019 at 1301 CDT Blood No organisms isolated No growth [facility] Culture-Anaerob Comment: [facility] ic Previous preliminary verified [facility] result was Culture In Progress on 09/04/2019 at 1601 CDT Previous preliminary verified result was No growth at 24 hours on 09/05/2019 at 1301 CDT Previous preliminary verified result was No growth at 48 hours on 09/06/2019 at 1301 CDT Previous preliminary verified result was No growth at 72 hours on 09/07/2019 at 1301 CDT Specimen Blood - VENOUS Performing Organization Address [facility] Ph one Number [facility] CLIA: [id number], [address] [place], [place] [address] [facility] * CBC WITH DIFFERENTIAL (09/04/2019 7:39 AM CDT) Only the most recent of 4 results within the time period is included. WBC 5.87 4.30 - 11.10 [facility] 10*3/L [facility] RBC 4.98 3.93 - 5.25 10*6/L [facility] HGB 14.0 11.6 - 15.0 g/dL [facility] RY [facility] HCT 41.9 35.7 - 45.2 % [facility] MCV 84.1 80.6 - 95.5 fL [facility] MCH 28.1 25.9 - 32.8 pg [facility] MCHC 33.4 31.6 - 35.1 g/dL [facility] RDW-SD 39.8 39.0 - 49.9 fL [facility] RDW-CV 13.1 12.0 - 15.5 % [facility] PLT 186 166 - 358 10*3/L [facility] T[facility] MPV 10.8 9.5 - 12.9 fL [facility] NRBC/100 WBC 0.0 0.0 - 10.0 /100 WBCs [facility] NRBC x10^3 <0.01 10*3/L [facility] GRAN MAT (NEUT) 55.1 % [facility] Y % [facility] IMM GRAN % 0.30 % [facility] LYMPH % 32.9 % [facility] MONO % 9.2 % [facility] EOS % 2.0 % [facility] BASO % 0.5 % [facility] GRAN MAT 3.23 1.88 - 7.09 10*3/uL [facility] AT[facility] x10^3(ANC) [facility] IMM GRAN x10^3 <0.03 0.00 - 0.06 10*3/uL [facility] LYMPH x10^3 1.93 1.32 - 3.29 10*3/uL [facility] ATORY [facility] MONO x10^3 0.54 0.33 - 0.92 10*3/uL [facility] EOS x10^3 0.12 0.03 - 0.39 10*3/uL [facility] BASO x10^3 0.03 0.01 - 0.07 10*3/uL [facility] Specimen Blood - VENOUS Performing Organization Address City/[facility]/Zipcode Ph one Number [facility] CLIA: [id number], [address] [place] [address] [address] [facility] * N-TERMINAL PRO-BNP (09/04/2019 7:39 AM CDT) NT-proBNP 24 <=125 pg/mL [facility] Specimen Blood - VENOUS Narrative Performed At [facility] has been reported to cause a neg ative bias, interpret results relative to [facility] patient's use of biotin. [facility] Performing Organization Address [facility] one Number [facility] CLIA: [id number], [address] [place] [address] [address] [facility] * aPTT (09/04/2019 7:39 AM CDT) APTT Patient 33 26 - 36 Seconds [facility] Y [facility] Specimen Blood - VENOUS Performing Organization Address City/[facility]/Zipcode Ph one Number [facility] CLIA: [id number], [address] [place] [address] [address] [facility] * Prothrombin Time (PT) / INR (09/04/2019 7:39 AM CDT) Only the most recent of 2 results within the time period is included. PROTIME PATIENT 11.1 10.1 - 12.6 Seconds [facility] R[facility] INR 1.0Comment: Normal INR <1.1; [facility] Warfarin Therapeutic range 2.0 [facility] to 3.0 or 2.5 to 3.5, [facility] depending upon the indications. Specimen Blood - VENOUS Performing Organization Address [facility] one Number [facility] CLIA: [id number], [address] [place], [place] [address] [facility] * Glycosylated Hemoglobin (A1C) (09/04/2019 7:39 AM CDT) HGB A1C 6.2 (H) 4.0 - 6.0 % NGSP [facility] Specimen Blood - VENOUS Performing Organization Address [facility] one Number [facility] CLIA: [id number], [address] [place] [address] [address] [facility] * Ethanol Level (09/04/2019 7:39 AM CDT) ALCOHOL <10 mg/dL [facility] Specimen Blood - VENOUS Narrative Performed At Toxic Greater than or equal to 80 mg/dL. [facility] NOTE: Whole blood values are approximately 10% to 15% lower than serum and [facility] plasma. CAMPUS Performing Organization Address [facility] one Number [facility] CLIA: [id number], [address] [place] [address] [address] [facility] * Basic Metabolic Panel (NA, K, CL, CO2, GLUCOSE, BUN, CREATININE, CA) (09/04/2019 7:39 AM CDT) Only the most recent of 3 results within the time period is included. NA 140 135 - 145 mmol/L [facility] K 3.3 (L) 3.5 - 5.0 mmol/L [facility] CL 99 98 - 108 mmol/L [facility] CO2 TOTAL 28 23 - 31 mmol/L [facility] [place] AGAP 13 2 - 16 [facility] BUN 17 7 - 23 mg/dL [facility] GLUCOSE 113 (H) 70 - 110 mg/dL [facility] SERVICES-CLEAR [facility] CREATININE 0.65 0.50 - 1.04 mg/dL [facility] ORY SERVICES-CLEAR [facility] CALCIUM 9.3 8.6 - 10.6 mg/dL [facility] RY SERVICES-CLEAR [facility] eGFR 92.1 mL/min/1.73m2 [facility] Calculation SERVICES-CLEAR (Non-[facility] Palestinian) eGFR 111.6 mL/min/1.73m2 [facility] Calculation SERVICES-CLEAR ([facility]) Specimen Blood - VENOUS Narrative Performed At [facility] of Glomerular Filtration Rate (GFR) and S taging of Kidney Disease* [facility] + + +------ + [facility] | GFR (mL/min/1.73 m2) | With Kidney Damage | [facility] Kidney Damage CORRIGAN + + -------+ + | >90 | [...] Performing Organization Address City/State/Zipcode Ph one Number [facility] CLIA: [id number], [address] [place], [place] [address] [facility] * Hepatic Function Panel (ALB, T.PRO, BILI T, BU/BC, ALT, AST, ALK PHOS) (09/04/2019 7:39 AM CDT) Only the most recent of 2 results within the time period is included. TOTAL BILI 0.3 0.1 - 1.1 mg/dL [facility] Y [facility] BILI UNCON 0.3 0.1 - 1.1 mg/dL [facility] BILI CONJ 0.0 0.0 - 0.3 mg/dL [facility] T PROTEIN 7.1 6.3 - 8.2 g/dL [facility] ALBUMIN 4.4 3.5 - 5.0 g/dL [facility] ALK PHOS 66 34 - 122 U/L [facility] ALTv 24 5 - 35 U/L [facility] AST(SGOT) 22 13 - 40 U/L [facility] Specimen Blood - VENOUS Performing Organization Address [facility] one Number [facility] CLIA: [id number], [address] [place] [address] [address] [facility] * Troponin I (09/04/2019 7:39 AM CDT) Only the most recent of 2 results within the time period is included. TROPONIN I <0.012 <=0.034 ng/mL [facility] Specimen Blood - VENOUS Narrative Performed At Equal or Less than 0.034 ng/ml---Normal [facility] Note: Cardiac troponin begins to rise 3-4 hours after the onset of ischemia. [facility] Repeat in 4-6 hours if the sample was d rawn within 3-4 hours of the onset of the CORRIGAN symptom and found normal. Between 0.035 and [...] patient's use of biotin. Performing Organization Address City/[facility] Ph one Number [facility] CLIA: [id number], [address] [place] [address] [address] [facility] * CONSENT/REFUSAL FOR DIAGNOSIS AND TREATMENT (09/04/2019 7:11 AM CDT) Only the most recent of 3 results within the time period is included. Specimen Performing Organization Address [facility] Ph one Number HIM * HOSPITAL ADMISSION (09/04/2019 12:01 AM CDT) Only the most recent of 2 results within the time period is included. Specimen Performing Organization Address [facility] Ph one Number HIM * EXTERNAL PROVIDER RECORDS (09/04/2019 12:01 AM CDT) Only the most recent of 7 results within the time period is included. Specimen Performing Organization Address [facility]/State/[facility] Ph one Number HIM * ILR DEVICE CHECK (08/29/2019 12:00 AM CDT) Specimen Performing Organization [facility] one Number EP * NOTICE OF PRIVACY PRACTICES (08/18/2019 10:37 AM METER READER INSPECTOR) Specimen Performing Organization [facility] one Number HIM * ASSIGNMENT OF BENEFITS (08/18/2019 10:35 AM METER READER INSPECTOR) Specimen Performing Organization [facility] one Number HIM * EP PROCEDURES (08/18/2019 12:01 AM METER READER INSPECTOR) Specimen Performing Organization [facility] one Number HIM * POCT FLU A AND B (MOLECULAR) (08/16/2019) [facility] POCT INFLUENZA Negative Negative - Negative A POCT INFLUENZA Negative Negative - Negative B Specimen Swab * THYROID STIMULATING HORMONE (08/13/2019 9:02 PM METER READER INSPECTOR) [facility] TSH 1.93Comment: Biotin has been 0.45 - 4.70 mIU/L [facility] reported to cause a negative SERVICES-QUAIL bias, interpret results [facility] relative to patient's use of biotin. Specimen Blood - VENOUS Performing Organization Address [facility] one Number [facility] CLIA: [id number], [address] [place] [address] [facility] * Lipase Serum (08/13/2019 9:02 PM METER READER INSPECTOR) Pathologist [facility] LIPASE 205 0 - 220 U/L [facility] SERVICES-[facility] Specimen Blood - VENOUS Performing Organization Address [facility] Ph one Number [facility] CLIA: [id number], [address] [place], [place] [address] [facility] * CT Abdomen/Pelvis W/O Contrast (08/13/2019 8:19 PM METER READER INSPECTOR) Specimen Impressions Performed At Findings suggest mesenteric [...] Results Inft User - 08/13/2019 9:04 PM METER READER INSPECTOR EXAM: CT ABDOMEN AND PELVIS WITHOUT CONTRAST [...] no follow-up is recommended. Performing Organization Address [facility] Ph one Number PACS/VR/DOSE * EKG-12 LEAD (08/13/2019 7:52 PM METER READER INSPECTOR) Specimen Performing Organization Address [facility] Ph one Number HST * EKG-12 LEAD (08/13/2019 6:37 PM METER READER INSPECTOR) Specimen Performing Organization Address [facility] Ph one Number HST * EMERGENCY SERVICES AGREEMENTS AND AUTHORIZATIONS (08/13/2019 12:01 AM METER READER INSPECTOR) Only the most recent of 2 results within the time period is included. Specimen Performing Organization Address [facility] Ph one Number HIM * XR FOOT 3+ VW RIGHT (08/07/2019 1:50 PM METER READER INSPECTOR) Specimen Impressions Performed At No acute bony [...] Results Inft User - 08/07/2019 3:14 PM METER READER INSPECTOR EXAM: XR FOOT 3+ VW RIGHT, EXAM: XR ANKLE 3+ VW RIGHT HISTORY: pain COMPARISON: 11/16/2017 FINDINGS: Imaging of the right foot and ankle was obtained. Osteopenia is noted. Joint spaces are maintained. Calcaneal enthesophytes are noted. Mild dorsal talonavicular osteophytosis is present. The ankle mortise is congruent. IMPRESSION No acute bony abnormality. Mild osteoarthrosis. Performing Organization Address [facility] one Number PACS/VR/DOSE * XR ANKLE 3+ VW RIGHT (08/07/2019 1:50 PM METER READER INSPECTOR) Specimen Impressions Performed At No acute bony [...] Results Inft User - 08/07/2019 3:14 PM METER READER INSPECTOR EXAM: XR FOOT 3+ VW RIGHT, EXAM: XR ANKLE 3+ VW RIGHT HISTORY: pain COMPARISON: 11/16/2017 FINDINGS: Imaging of the right foot and ankle was obtained. Osteopenia is noted. Joint spaces are maintained. Calcaneal enthesophytes are noted. Mild dorsal talonavicular osteophytosis is present. The ankle mortise is congruent. IMPRESSION No acute bony abnormality. Mild osteoarthrosis. Performing Organization Address [facility] one Number PACS/VR/DOSE * PULMONARY FUNCTION TEST (RESULTS) (07/28/2019 10:43 AM METER READER INSPECTOR) Specimen Performing Organization Address [facility] one Number PFT * VITAMIN D, 25-OH (07/26/2019 4:25 PM METER READER INSPECTOR) VIT D 25OH 23 (L) 25 - 80 ng/mL [facility] SERVICES Specimen Blood Narrative Performed At Deficiency: <20 ng/mL [facility] Insufficiency: 20-24 ng/mL SERVICES Optimal: 25-80 ng/mL Performing Organization Address [facility] one Number [facility] SERVICES CLIA: [id number], [address] [place] [address] [facility] * EKG-12 LEAD (07/20/2019 11:23 AM METER READER INSPECTOR) Specimen Performing Organization Address [facility] one Number HST * URINE CULTURE (07/13/2019 4:19 PM METER READER INSPECTOR) Only the most recent of 3 results within the time period is included. URINE CULTURE >100,000 CFU/mL Klebsiella [facility] pneumoniae SERVICES Specimen Urine [...] pyelonephritis or systemic disease. Performing Organization Address [facility] one Number [facility] SERVICES CLIA: [id number], [address] [place] [address] [facility] * EXTRA TUBE URINE CULTURE (07/02/2019 9:54 AM METER READER INSPECTOR) Specimen Urine - URINE, CLEAN CATCH Performing Organization Address [facility] one Number [facility] CLIA: [id number], [address] [place], [place] [address] [facility] * EXTRA TUBE LT. BLUE (07/02/2019 7:40 AM METER READER INSPECTOR) Specimen Blood Performing Organization Address [facility] one Number [facility] CLIA: [id number], [address] [place], [place] [address] [facility] * COMP. METABOLIC PANEL ([id number]) (07/02/2019 7:40 AM METER READER INSPECTOR) NA 140 135 - 145 mmol/L [facility] K 3.2 (L) 3.5 - 5.0 mmol/L [facility] CL 101 98 - 108 mmol/L [facility] CO2 TOTAL 28 23 - 31 mmol/L [facility] AGAP 11 2 - 16 [facility] BUN 16 7 - 23 mg/dL [facility] GLUCOSE 122 (H) 70 - 110 mg/dL [facility] CREATININE 0.59 0.50 - 1.04 mg/dL [facility] TOTAL BILI 0.5 0.1 - 1.1 mg/dL [facility] CALCIUM 8.7 8.6 - 10.6 mg/dL [facility] T PROTEIN 6.7 6.3 - 8.2 g/dL [facility] ALBUMIN 4.3 3.5 - 5.0 g/dL [facility] ALK PHOS 74 34 - 122 U/L [facility] ALTv 31 5 - 35 U/L [facility] AST(SGOT) 30 13 - 40 U/L [facility] eGFR 102.9 mL/min/1.73m2 [facility] Calculation SERVICES-CLEAR (Non-[facility] Palestinian) eGFR 124.8 mL/min/1.73m2 [facility] Calculation [facility] ([facility]) Specimen Blood - VENOUS Narrative Performed At Association of Glomerular Filtration Rate (GFR) and S taging of Kidney Disease* [facility] + + +------ + [facility] | GFR (mL/min/1.73 m2) | With Kidney Damage | [facility] Kidney Damage CAMPUS + + -------+ + [...] Performing Organization Address City/State/Zipcode Ph one Number [facility] CLIA: [id number], [address] [place], [place] [address] [facility] * POCT URINALYSIS W SPECIFIC GRAVITY (06/16/2019 11:05 AM METER READER INSPECTOR) POCT U SP GRAV 1.015 1.005 - [...] development and interpretation of all internal controls from Last 3 Months Insurance Type Payer Benefit Subscriber ID Effective Phone Address Plan / Dates Group [facility] [id number] 2019-[address] [facility] SI-BONE [facility] [id number] [place] [address]
--- OUTSIDE RECORDS SUMMARY | 2019-11-09 10:09 | XMS REPORT | Summary of Care ---
Author Author [facility] - Health Organization [facility] - Health Address Unknown Phone Unavailable Care Team Providers Care Refund Clerk Name Role Phone Fabien Fernandes MD Unavailable Marvin Oconnor MD PCP Cady Team 25 Unavailable Reason for Visit * Reason Comments Appointment Talk To Nurse Encounter Details Care Team Description Date Type Department Boom Santiago MD [address] [place] [phone] Appointment; Talk To Nurse 09/08/2019 Telephone [facility] [address] [phone] Allergies Comments Active Allergy Reactions Severity Noted Date Azithromycin Itching 01/07/2019 Ciprofloxacin Rash 01/27/2018 Clindamycin Other - See Medium 10/05/2016 comments, Itching Clonazepam Itching, Medium 11/23/2017 Rash, Swelling All steroids-muscle weakness Corticosteroids Other - See 01/20/2016 (Glucocorticoids) comments Doxycycline Rash Low 08/21/2019 Iodine Rash 10/05/2016 "swelling internally" per patient Cephalexin Itching, Rash 08/18/2019 Lincomycin Rash Medium 09/15/2017 Nitrofurantoin Rash 01/27/2018 Other [place]-3s Anaphylaxis 01/27/2018 States it would be fatal [...] needed. 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 01/12/2019 Overview: Added automatically from request for josé luis penaery [id number] Obesity (BMI 30-39.9) 12/16/2018 Recurrent UTI 05/17/2018 [...] Added automatically from request for ordonez rgery [id number] documented as of this encounter (statuses as [...] Appointment Cardiac Electrophys iology Zoila Rodas AGNP [address] [place] [phone] 09/27/2019 Office Visit Nephrology Laurie Hull LPC [address] [place], [place] [phone] 09/28/2019 Telemedicine Psychiatry Visit Nurse, Pcp Gen [facility] Team 10/17/2019 Nurse Visit Internal Medicine Eleno Mcnamara MD [address] [place] [phone] 10/20/2019 Office Visit Obstetrics & Gyneco Kashif Linares MD [address] [place] [address]. [place] [phone] 10/26/2019 Office Visit Neurology Beth Marquez MD [address] [place] [phone] 10/26/2019 Office Visit Psychiatry Marvin Oconnor MD [address] [place], [place] [phone] 11/09/2019 Office Visit Internal Medicine Sukh Harris MD [address] [place] [address] [id number] [place], [place] [phone] 11/23/2019 Office Visit Pain Medicine Dieter Zhou MD [address] [place] [address] [id number] [place] [address] [phone] 01/03/2020 Office Visit Pulmonary Disease Health Maintenance [...] / Dates Group HMO [facility] [id number] 2019-[address] [facility] [id number] [place] [address] documented as of this encounter
--- OUTSIDE RECORDS SUMMARY | 2019-11-09 10:09 | XMS REPORT | Summary of Care ---
Author Author [facility] - Health Organization [facility] - Health Address Unknown Phone Unavailable Care Team Providers Care Port Purser Name Role Phone Fabien Fernandes MD Unavailable Marvin Oconnor MD PCP Cady Team 25 Unavailable Encounter Details Care Team Description Date Type Department Boom Santiago MD [address] [place] [phone] 09/18/2019 Patient Secure [facility] Cardiol lizzie, [address] [phone] Allergies Comments Active Allergy Reactions Severity Noted Date Azithromycin Itching 01/07/2019 Ciprofloxacin Rash 01/27/2018 Clindamycin Other - See Medium 10/05/2016 comments, Itching Clonazepam Itching, Medium 11/23/2017 Rash, Swelling All steroids-muscle weakness Corticosteroids Other - See 01/20/2016 (Glucocorticoids) comments Doxycycline Rash Low 08/21/2019 Iodine Rash 10/05/2016 "swelling internally" per patient Cephalexin Itching, Rash 08/18/2019 Lincomycin Rash Medium 09/15/2017 Nitrofurantoin Rash 01/27/2018 Other [place]-3s Anaphylaxis 01/27/2018 States it would be fatal [...] needed. 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 01/12/2019 Overview: Added automatically from request for josé luis silvestre [id number] Obesity (BMI 30-39.9) 12/16/2018 Recurrent UTI 05/17/2018 [...] automatically from request for josé luis silvestre [id number] documented as of this encounter (statuses as [...] Appointment Cardiac Electrophys iology Zoila Rodas AGNP [address] [place] [phone] 09/27/2019 Telemedicine Nephrology Visit Laurie Hull LPC [address] [place], [place] [phone] 09/28/2019 Telemedicine Psychiatry Visit Nurse, Pcp Gen Med [place] Team 10/17/2019 Nurse Visit Internal Medicine Eleno Mcnamara MD [address] [place] [phone] 10/20/2019 Office Visit Obstetrics & Gyneco Kashif Linares MD [address] [place] [address]. [place] [phone] 10/26/2019 Office Visit Neurology Beth Marquez MD [address] [place] [address]. [place] [phone] 10/26/2019 Telemedicine Psychiatry Visit Marvin Oconnor MD [address] [place], [place] [address] 11/09/2019 Office Visit Internal Medicine Sukh Harris MD [address] [place] [address] [id number] [place], [place] [phone] 11/23/2019 Office Visit Pain Medicine Dieter Zhou MD [address] [place] [address] [id number] [place], [place] 158[address] 01/03/2020 Office Visit Pulmonary Disease Health Maintenance [...] Phone Address Plan / Dates Group [facility] [id number] 2019-P [address] [facility] [id number] [place] [address] documented as of this encounter
--- OUTSIDE RECORDS SUMMARY | 2019-11-09 10:09 | XMS REPORT | Summary of Care ---
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 09/18/2019 Telephone [facility] [address] [phone] Allergies Comments Active Allergy Reactions Severity Noted Date Azithromycin Itching 01/07/2019 Ciprofloxacin Rash 01/27/2018 Clindamycin Other - See Medium 10/05/2016 comments, Itching Clonazepam Itching, Medium 11/23/2017 Rash, Swelling All steroids-muscle weakness Corticosteroids Other - See 01/20/2016 (Glucocorticoids) comments Doxycycline Rash Low 08/21/2019 Iodine Rash 10/05/2016 "swelling internally" per patient Cephalexin Itching, Rash 08/18/2019 Lincomycin Rash Medium 09/15/2017 Nitrofurantoin Rash 01/27/2018 Other [place]-3s Anaphylaxis 01/27/2018 States it would be fatal [...] needed. 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 01/12/2019 Overview: Added automatically from request for ordonez rgery [id number] Obesity (BMI 30-39.9) 12/16/2018 Recurrent UTI 05/17/2018 [...] Added automatically from request for ordonez rgery [id number] documented as of this encounter (statuses as [...] Appointment Cardiac Electrophys iology Zoila Rodas AGNP [address] [place] [phone] 09/27/2019 Telemedicine Nephrology Visit Laurie Hull LPC [address] [place], [place] [phone] 09/28/2019 Telemedicine Psychiatry Visit Nurse, Pcp Gen Med [place] Team 10/17/2019 Nurse Visit Internal Medicine Eleno Mcnamara MD [address] [place] [phone] 10/20/2019 Office Visit Obstetrics & Gyneco Kashif Linares MD [address] [place] [phone] 10/26/2019 Office Visit Neurology Beth Marquez MD [address] [place] [phone] 10/26/2019 Telemedicine Psychiatry Visit Marvin Oconnor MD [address] [place] [address] 11/09/2019 Office Visit Internal Medicine Sukh Harris MD [address] [place] [address] [id number] [place], [place] [phone] 11/23/2019 Office Visit Pain Medicine Dieter Zhou MD [address] [id number] [place], [place] [phone] 01/03/2020 Office Visit Pulmonary Disease Health Maintenance [...] Phone Address Plan / Dates Group [facility] [id number] 2019-P [address] [facility] [employer] [facility] [address] [place] [address] documented as of this encounter
--- OUTSIDE RECORDS SUMMARY | 2019-11-09 10:09 | XMS REPORT | Summary of Care ---
Author Author [facility] - Health Organization [facility] - Health Address Unknown Phone Unavailable Care Team Providers Care Frit Mixer Name Role Phone Fabien Fernandes MD Unavailable Marvin Oconnor MD PCP Cady Team 25 Unavailable Encounter Details Care Team Description Date Type Department Boom Santiago MD [address] [place] [phone] 09/18/2019 Patient Secure [facility] lizzie, [address] [phone] Allergies Comments Active Allergy Reactions Severity Noted Date Azithromycin Itching 01/07/2019 Ciprofloxacin Rash 01/27/2018 Clindamycin Other - See Medium 10/05/2016 comments, Itching Clonazepam Itching, Medium 11/23/2017 Rash, Swelling All steroids-muscle weakness Corticosteroids Other - See 01/20/2016 (Glucocorticoids) comments Doxycycline Rash Low 08/21/2019 Iodine Rash 10/05/2016 "swelling internally" per patient Cephalexin Itching, Rash 08/18/2019 Lincomycin Rash Medium 09/15/2017 Nitrofurantoin Rash 01/27/2018 Other [place]-3s Anaphylaxis 01/27/2018 States it would be fatal [...] needed. 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 01/12/2019 Overview: Added automatically from request for josé luis silvestre [id number] Obesity (BMI 30-39.9) 12/16/2018 Recurrent UTI 05/17/2018 [...] automatically from request for josé luis silvestre [id number] documented as of this encounter (statuses as [...] Appointment Cardiac Electrophys iology Zoila Rodas AGNP [address] [place] [address] [phone] 09/27/2019 Telemedicine Nephrology Visit Laurie Hull LPC [address] [place], [place] [phone] 09/28/2019 Telemedicine Psychiatry Visit Nurse, Pcp Gen Med Nicole Team 10/17/2019 Nurse Visit Internal Medicine Eleno Mcnamara MD [address] [place] [address] [phone] 10/20/2019 Office Visit Obstetrics & Gyneco Kashif Linares MD [address] [place] [address]. [place] [address] 10/26/2019 Office Visit Neurology Beth Marquez MD [address] [place] [address]. [place] [address] 10/26/2019 Telemedicine Psychiatry Visit Marvin Oconnor MD [address] [place], [place] 797035 11/09/2019 Office Visit Internal Medicine Sukh Harris MD [address] [place] [address] [id number] [place], [place] 516225 11/23/2019 Office Visit Pain Medicine Dieter Zhou MD [address] [place] [address] [id number] [place], [place] 229375 01/03/2020 Office Visit Pulmonary Disease Health Maintenance [...] Phone Address Plan / Dates Group O [facility] [id number] 2019-P [address] [employer] [facility] [id number] [place] [address] documented as of this encounter
--- OUTSIDE RECORDS SUMMARY | 2019-11-09 10:09 | XMS REPORT | Summary of Care ---
Author Author [facility] - Health Organization [facility] - Health Address Unknown Phone Unavailable Care Team Providers Care Diesel Crane Operator Name Role Phone Fabien Fernandes MD Unavailable Marvin Oconnor MD PCP Cady Team 25 Unavailable Reason for Visit * Reason Comments Assessment Encounter Details Care Team Description Date Type Department Boom Santiago MD [address] [place] [phone] Assessment 09/18/2019 Telephone [facility] [address] [phone] Allergies Comments Active Allergy [...] Rash Medium 09/15/2017 Nitrofurantoin Rash 01/27/2018 Other [place]-3s Anaphylaxis 01/27/2018 States it would be fatal [...] needed. 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 01/12/2019 Overview: Added automatically from request for josé luis penaery [id number] Obesity (BMI 30-39.9) 12/16/2018 Recurrent UTI 05/17/2018 [...] automatically from request for josé luis silvestre [id number] documented as of this encounter (statuses as [...] Appointment Cardiac Electrophys iology Zoila Rodas AGNP [address] [place] [address] [phone] 09/27/2019 Telemedicine Nephrology Visit Laurie Hull LPC [address] [place], [place] [phone] 09/28/2019 Telemedicine Psychiatry Visit Nurse, Pcp Gen Med [place] Team 10/17/2019 Nurse Visit Internal Medicine Eleno Mcnamara MD [address] [place] [address] [phone] 10/20/2019 Office Visit Obstetrics & Gyneco Kashif Linares MD [address] [place] [address]. [place] [address] 10/26/2019 Office Visit Neurology Beth Marquez MD [address] [place] [address]. [place] [address] 10/26/2019 Telemedicine Psychiatry Visit Marvin Oconnor MD [address] [place], [place] 012205 11/09/2019 Office Visit Internal Medicine Sukh Harris MD [address] [place] [address] [id number] [place], [place] 651925 11/23/2019 Office Visit Pain Medicine Dieter Zhou MD [address] [place] [address] [id number] [place] [address] [phone] 01/03/2020 Office Visit Pulmonary Disease Health Maintenance [...] Phone Address Plan / Dates Group O [facility] [id number] 2019-P [address] [facility] [id number] [place] [address] documented as of this encounter
--- OUTSIDE RECORDS SUMMARY | 2019-11-09 10:09 | XMS REPORT | Summary of Care ---
Author Author [facility] - Health Organization [facility] - Health Address Unknown Phone Unavailable Care Team Providers Care Oil Heater Installer Name Role Phone Fabien Fernandes MD Unavailable Marvin Oconnor MD PCP Cady Team 25 Unavailable Encounter Details Care Team Description Date Type Department Boom Santiago MD [address] [place] [phone] 09/18/2019 Patient Secure [facility] Cardiol lizzie, [address] [phone] Allergies Comments Active Allergy Reactions Severity Noted Date Azithromycin Itching 01/07/2019 Ciprofloxacin Rash 01/27/2018 Clindamycin Other - See Medium 10/05/2016 comments, Itching Clonazepam Itching, Medium 11/23/2017 Rash, Swelling All steroids-muscle weakness Corticosteroids Other - See 01/20/2016 (Glucocorticoids) comments Doxycycline Rash Low 08/21/2019 Iodine Rash 10/05/2016 "swelling internally" per patient Cephalexin Itching, Rash 08/18/2019 Lincomycin Rash Medium 09/15/2017 Nitrofurantoin Rash 01/27/2018 Other [place]-3s Anaphylaxis 01/27/2018 States it would be fatal [...] needed. 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 01/12/2019 Overview: Added automatically from request for josé luis silvestre [id number] Obesity (BMI 30-39.9) 12/16/2018 Recurrent UTI 05/17/2018 [...] automatically from request for josé luis silvestre [id number] documented as of this encounter (statuses as [...] Appointment Cardiac Electrophys iology Zoila Rodas AGNP [address] [place] [address] [phone] 09/27/2019 Telemedicine Nephrology Visit Laurie Hull LPC [address] [place], [place] [phone] 09/28/2019 Telemedicine Psychiatry Visit Nurse, Pcp Gen Med Nicole Team 10/17/2019 Nurse Visit Internal Medicine Eleno Mcnamara MD [address] [place] [address] [phone] 10/20/2019 Office Visit Obstetrics & Gyneco Kashif Linares MD [address] [place] [address]. [place] [address] 10/26/2019 Office Visit Neurology Beth Marquez MD [address] [place] [address]. [place] [address] 10/26/2019 Telemedicine Psychiatry Visit Marvin Oconnor MD [address] [place], [place] 0[address] 11/09/2019 Office Visit Internal Medicine Sukh Harris MD [address] [place] [address] [id number] [place], [place] 117015 11/23/2019 Office Visit Pain Medicine Dieter Zhou MD [address] [place] [address] [id number] [place], [place] 105885 01/03/2020 Office Visit Pulmonary Disease Health Maintenance [...] Phone Address Plan / Dates Group O [facility] [id number] 2019-P [address] [employer] [facility] [address] [place] [address] documented as of this encounter
--- OUTSIDE RECORDS SUMMARY | 2019-11-09 10:10 | XMS REPORT | Summary of Care ---
Author Author [facility] - Health Organization [facility] - Health Address Unknown Phone Unavailable Care Team Providers Care Cath Lab Nurse Name Role Phone Fabien Fernandes MD Unavailable Marvin Oconnor MD PCP Ulysses Lazar 25 Unavailable Reason for Visit * Reason Comments DISCHARGE Encounter Details Care Team Description Date Type Department Juanita Casas, PT DISCHARGE 09/28/2019 Clinic [facility] Health Physica l and Assessment Occupational Therapy-[address], [address] [place] [address] Allergies Comments Active Allergy Reactions Severity Noted Date Azithromycin Itching 01/07/2019 Ciprofloxacin Rash 01/27/2018 Clindamycin Other - See Medium 10/05/2016 comments, Itching Clonazepam Itching, Medium 11/23/2017 Rash, Swelling All steroids-muscle weakness Corticosteroids Other - See 01/20/2016 (Glucocorticoids) comments Doxycycline Rash Low 08/21/2019 Iodine Rash 10/05/2016 "swelling internally" per patient Cephalexin Itching, Rash 08/18/2019 Lincomycin Rash Medium 09/15/2017 Nitrofurantoin Rash 01/27/2018 Other [place]-3s Anaphylaxis 01/27/2018 States it would be fatal Penicillins Other - See High 01/20/2016 comments, Shortness of Breath Shellfish Derived Other - See 03/18/2019 comments BActrim Rash Sulfamethizole Rash 07/05/2019 New string of tetanus- went to ER , medication for throat closing up Tetanus Vaccines And Swelling High 6 Toxoid documented as of this encounter (statuses as of 09/28/2019) Medications End Date Status Medication Sig Dispensed Refills Start Date Active cetirizine 10 mg tablet Take 10 mg by 3 07/30/ 201 mouth every 8 morning. Active omeprazole 40 [...] needed. 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 01/12/2019 Overview: Added automatically from request for josé luis penaery [id number] Obesity (BMI 30-39.9) 12/16/2018 Recurrent UTI 05/17/2018 [...] as of this encounter (statuses as of 09/28/2019) Resolved Problems Problem Noted Date Resolved Date Spondylosis of lumbar region without myelopathy or radiculo johanna 01/12/2019 01/16/2019 Overview: Added automatically from request for josé luis penaery [id number] documented as of this encounter (statuses as of 09/28/2019) Immunizations Name Administration Dates Next Due Influenza [...] filedocumented in this encounter Progress Notes * Juanita Casas, PT - 09/28/2019 10:56 AM CDT Outpatient Discharge Note Physical Therapy Diagnosis: No diagnosis found. Date of initial visit: 11/10/18 Date of last visit: 01/05/19 Total number of visits: 4 Functional status at discharge:History of Condition: First in PT 11/10/18. Was ch ildlike and anxious. 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 The obs ervation impression at the time was low participation in her life and poor indep endent function. At today's re-eval 7 weeks later, she arrives using her rolling walker because h er W/C is broken. She is walking w/o personal assistance of others. Walking with her feet flat and not twisting from the low legs and ankles. Home program: Verbal and written instructions provided (with department phone nu mblatoya) to the patient and patient's family. Goals achieved:Short Term Goals:4 sessions 1. Decrease painfrom 7 to 3 at rest in her back -met 2. Becomecooperativewith home exercise program when supervised by -m et 3.Able to photo mask inspector walker on both feet with knees and hips extended -met Skilled Nursing Goals:8 sessions 1. Able to demonstrate ADL's of socks, overhead shirt, and assist with shoes -me t 2. Sit in proper posture without writhing motions in her chair -met 3. Pt will report improved back pain with standing to 3/10 -met Goals met at discharge: 100% Discharged from Physical Therapy to home with home program. documented in this encounter Plan of Treatment Care Team Description Date Type Specialty Laurie Hull LPC [address] [address] Arrived 09/28/2019 Telemedicine Psychiatry Visit Eleno Mcnamara MD [address] [place] [address] [phone] 10/20/2019 Telemedicine Obstetrics & Gyneco logy Visit Kashif Cee MD [address] [place] [phone] 10/26/2019 Telemedicine Neurology Visit Beth Marquez MD [address] [place] [phone] 10/26/2019 Telemedicine Psychiatry Visit Marvin Oconnor MD [address] [place] [place], [place] [address] 11/09/2019 Telemedicine Internal Medicine Visit Sukh Harris MD [address] [facility] [address] [id number] [place], [place] [address] 11/23/2019 Office Visit Pain Medicine Dieter Zhou MD [address] [facility] [id number] [place], [place] [address] 01/03/2020 Office Visit Pulmonary Disease Health Maintenance [...] Effective Phone Address Plan / Dates Group [facility] [id number] 2019-P [address] [facility] [id number] [place] [address] documented as of this encounter
--- OUTSIDE RECORDS SUMMARY | 2019-11-09 10:10 | XMS REPORT | Summary of Care ---
Author Author [facility] - Health Organization [facility] - Health Address Unknown Phone Unavailable Care Team Providers Care Certified Orthoptist Name Role Phone Fabien Fernandes MD Unavailable Marvin Oconnor MD PCP Ulysses Lazar Unavailable Reason for Visit * Reason Comments Wound Check * (Routine) Referred By Contact Referred To Contact Status Reason Specialty Diagnoses / Procedures Marvin Oconnor MD [address] [address] [facility] Ep Device Clin [address] [place] [address] [place] [phone] Authorized IM-CARDIOVASCULA Diagnoses R DISEASE / Device Cardiac P Electrophysiolog rocedures y EP DEVICE CHECK NEW EP DEVICE Encounter Details Care Team Description Date Type Department Boom Santiago MD [address] [place] [phone] Outpt-Anna, Pacemaker/Icd Encounter for post surgical wound check (Primary Dx); Syncope, unspecified syncope type 09/18/2019 [facility] Health Heart C enter Encounter EP Device Clinic The [address] [place] [address] Allergies Comments Active Allergy Reactions Severity Noted Date Azithromycin Itching 01/07/2019 Ciprofloxacin Rash 01/27/2018 Clindamycin Other - See Medium 10/05/2016 comments, Itching Clonazepam Itching, Medium 11/23/2017 Rash, Swelling All steroids-muscle weakness Corticosteroids Other - See 01/20/2016 (Glucocorticoids) comments Doxycycline Rash Low 08/21/2019 Iodine Rash 10/05/2016 "swelling internally" per patient Cephalexin Itching, Rash 08/18/2019 Lincomycin Rash Medium 09/15/2017 Nitrofurantoin Rash 01/27/2018 Other [place]-3s Anaphylaxis 01/27/2018 States it would be fatal Penicillins Other - See High 01/20/2016 comments, Shortness of Breath Shellfish Derived Other - See 03/18/2019 comments BActrim Rash Sulfamethizole Rash 07/05/2019 New string of tetanus- went to ER , medication for throat closing up Tetanus Vaccines And Swelling High 6 Toxoid documented as of this encounter (statuses as of 09/20/2019) Medications End Date Status Medication Sig Dispensed [...] needed. 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 01/12/2019 Overview: Added automatically from request for ordonez [facility] [id number] Obesity (BMI 30-39.9) 12/16/2018 Recurrent UTI 05/17/2018 [...] as of this encounter (statuses as of 09/20/2019) Resolved Problems Problem Noted Date Resolved Date Spondylosis of lumbar region without myelopathy or radiculo johanna 01/12/2019 01/16/2019 Overview: [facility] [id number] documented as of this encounter (statuses as of 09/20/2019) Immunizations Name Administration Dates Next Due Influenza [...] Description Date Type Specialty Zoila Rodas AGNP [address] [place] [address] 09/27/2019 Telemedicine Nephrology Visit Laurie Hull, MANAGER ACTION [address] [place] [address] 09/28/2019 Telemedicine Psychiatry Visit Nurse, Pcp Gen Med Nicole Team 10/17/2019 Nurse Visit Internal Medicine Eleno Mcnamara MD [address] [place] [address] 10/20/2019 Office Visit Obstetrics & Gyneco Kashif Linares MD [address] [place] [phone] 10/26/2019 Office Visit Neurology Beth Marquez MD [address] [place] [phone] 10/26/2019 Telemedicine Psychiatry Visit Marvin Oconnor MD [address] [place] [place], [place] 359145 11/09/2019 Office Visit Internal Medicine Sukh Harirs MD [address] [id number] [place], [place] [address] 11/23/2019 Office Visit Pain Medicine Dieter Zhou MD [address] [id number] [place], [place] [phone] 01/03/2020 Office Visit Pulmonary Disease Health Maintenance [...] filedocumented in this encounter Visit Diagnoses Diagnosis Encounter for post surgical wound check - Primary Syncope, unspecified syncope type documented in this encounter Insurance Type Payer Benefit Subscriber ID Effective Phone Address Plan / Dates Group O [facility] [id number] 2019-P [address] [employer] [facility] [id number] [place] [address] documented as of this encounter
--- OUTSIDE RECORDS SUMMARY | 2019-11-09 10:10 | XMS REPORT | Summary of Care ---
Author Author [facility] - Health Organization [facility] - Health Address Unknown Phone Unavailable Care Team Providers Care Environmental Inspector Name Role Phone Fabien Fernandes MD Unavailable Marvin Oconnor MD PCP Ulysses Lazar 25 Unavailable Reason for Visit * Reason Comments Pre-Visit Planning Encounter Details Care Team Description Date Type Department Zoila Rodas AGNP [address] [place] [address] Pre-Visit Planning 09/20/2019 Telephone [facility] [address] [place] [address] Allergies Comments Active Allergy Reactions Severity Noted Date Azithromycin Itching 01/07/2019 Ciprofloxacin Rash 01/27/2018 Clindamycin Other - See Medium 10/05/2016 comments, Itching Clonazepam Itching, Medium 11/23/2017 Rash, Swelling All steroids-muscle weakness Corticosteroids Other - See 01/20/2016 (Glucocorticoids) comments Doxycycline Rash Low 08/21/2019 Iodine Rash 10/05/2016 "swelling internally" per patient Cephalexin Itching, Rash 08/18/2019 Lincomycin Rash Medium 09/15/2017 Nitrofurantoin Rash 01/27/2018 Other [place]-3s Anaphylaxis 01/27/2018 States it would be fatal [...] needed. 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 01/12/2019 Overview: Added automatically from request for ordonez rgery [id number] Obesity (BMI 30-39.9) 12/16/2018 Recurrent UTI 05/17/2018 [...] Added automatically from request for josé luis rgery [id number] documented as of this encounter (statuses as [...] Description Date Type Specialty Zoila Rodas AGNP [address] [place] [address] [phone] 09/27/2019 Telemedicine Nephrology Visit Laurie Hull LPC [address] [place], [place] [phone] 09/28/2019 Telemedicine Psychiatry Visit Nurse, Pcp Gen Med Nicole Team 10/17/2019 Nurse Visit Internal Medicine Eleno Mcnamara MD [address] [place] [address] [phone] 10/20/2019 Office Visit Obstetrics & Gyneco Kashif Linares MD [address] [place] [address]. [place] [phone] 10/26/2019 Office Visit Neurology Beth Marquez MD [address] [place] [address]. [place] [phone] 10/26/2019 Telemedicine Psychiatry Visit Marvin Ocnonor MD [address] [place], [place] 529175 11/09/2019 Office Visit Internal Medicine Sukh Harris MD [address] [place] [address] [id number] [place], [place] [address] 11/23/2019 Office Visit Pain Medicine Dieter Zhou MD [address] [place] [address] [id number] [place], [place] 518965 01/03/2020 Office Visit Pulmonary Disease Order Schedule Name Type Priority Associated Diag noses 1 Occurrences starting 09/20/2019 until 03/21/2020 VITAMIN D, 25-OH LAB Routine Hypertension, unspecified type 1 Occurrences starting 09/20/2019 until 03/21/2020 INTACT PTH CALCIUM GROUP LAB Routine Hyper tension, unspecified type 1 Occurrences starting 09/20/2019 until 03/21/2020 BASIC METABOLIC PANEL LAB Routine Hyperten elvin, unspecified (NA, K, CL, CO2, GLUCOSE, type BUN, CREATININE, CA) 1 Occurrences starting 09/20/2019 until 03/21/2020 PROTEIN CREAT RATIO URINE LAB Routine Hype rtension, unspecified RANDOM type 1 Occurrences starting 09/20/2019 until 03/21/2020 PHOSPHORUS LAB Routine Hypertension, u nspecified type 1 Occurrences starting 09/20/2019 until 03/21/2020 PROFILE / HEMOGRAM LAB Routine Hypertensio n, unspecified type 1 Occurrences starting 09/20/2019 until 03/21/2020 URIC ACID LAB Routine Hypertension, u nspecified type 1 Occurrences starting 09/20/2019 until 03/21/2020 URINALYSIS LAB Routine Hypertension, u nspecified type 1 Occurrences starting 09/20/2019 until 03/21/2020 MAGNESIUM LAB Routine Hypertension, u nspecified type Health Maintenance Due Date Last Done [...] Visit Diagnoses Diagnosis Hypertension, unspecified type - Primar y documented in this encounter Insurance Type Payer Benefit Subscriber ID Effective Phone Address Plan / Dates Group [facility] [id number] 2019-P [address] [facility] 688270 [place] [address] documented as of this encounter
--- OUTSIDE RECORDS SUMMARY | 2019-11-09 10:10 | XMS REPORT | Summary of Care ---
Author Author [facility] - Health Organization [facility] - Health Address Unknown Phone Unavailable Care Team Providers Care Marketing Systems Analyst Name Role Phone Fabien Fernandes MD Unavailable Marvin Oconnor MD PCP Cady Team 25 Unavailable Encounter Details Care Team Description Date Type Department Doctor Unassigned, [place] [address] [place] [id number] 08/15/2019 Orders Only [facility] [address] [place] [address] Allergies Comments Active Allergy Reactions Severity Noted Date Azithromycin Itching 01/07/2019 Ciprofloxacin Rash 01/27/2018 Clindamycin Other - See Medium 10/05/2016 comments, Itching Clonazepam Itching, Medium 11/23/2017 Rash, Swelling All steroids-muscle weakness Corticosteroids Other - See 01/20/2016 (Glucocorticoids) comments Doxycycline Rash Low 08/21/2019 Iodine Rash 10/05/2016 "swelling internally" per patient Cephalexin Itching, Rash 08/18/2019 Lincomycin Rash Medium 09/15/2017 Nitrofurantoin Rash 01/27/2018 Other [place]-3s Anaphylaxis 01/27/2018 States it would be fatal Penicillins Other - See High 01/20/2016 comments, Shortness of Breath Shellfish Derived Other - See 03/18/2019 comments BActrim Rash Sulfamethizole Rash 07/05/2019 New string of tetanus- went to ER , medication for throat closing up Tetanus Vaccines And Swelling High 6 Toxoid documented as of this encounter (statuses as of 09/27/2019) Medications End Date Status Medication Sig Dispensed [...] as of this encounter (statuses as of 09/27/2019) Active Problems Problem Noted Date Altered mental status 09/04/2019 Cellulitis 09/04/2019 Chronic lumbar radiculopathy 01/12/2019 Overview: Added automatically from request for [employer] [id number] 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 01/12/2019 Overview: Added automatically from request for ordonez [employer] [id number] Obesity (BMI 30-39.9) 12/16/2018 Recurrent UTI 05/17/2018 [...] as of this encounter (statuses as of 09/27/2019) Resolved Problems Problem Noted Date Resolved Date Spondylosis of lumbar region without myelopathy or radiculo johanna 01/12/2019 01/16/2019 Overview: [facility] [id number] documented as of this encounter (statuses as of 09/27/2019) Immunizations Name Administration Dates Next Due Influenza [...] Description Date Type Specialty Zoila Rodas AGNP [address] [place] [address] Arrived 09/27/2019 Telemedicine Nephrology Visit Laurie Hull, SLITTER SCORER CUT OFF OPERATOR [address] MACK [address] [place] [address] 09/28/2019 Telemedicine Psychiatry Visit Eleno Mcnamara MD [address] [place] [address] 10/20/2019 Office Visit Obstetrics & Gyneco Kashif Linares MD [address] [place] [address]. [place] [address] 10/26/2019 Telemedicine Neurology Visit Beth Marquez MD [address] [facility] [place] [phone] 10/26/2019 Telemedicine Psychiatry Visit Marvin Oconnor MD [address] [place] [address] [phone] 11/09/2019 Office Visit Internal Medicine Sukh Harris MD [address] [facility] [id number] [place] [address] [phone] 11/23/2019 Office Visit Pain Medicine Dieter Zhou MD [address] [facility] [id number] [place], [place] [phone] 01/03/2020 Office Visit Pulmonary Disease Health Maintenance [...] Procedure Name Priority Date/Time Associated Diag nosis AUTHORIZATION FOR RELEASE Routine 08/15/2019 OF PHI 12:01 AM FUEL CELL BUILDER documented in this encounter Results Not on filedocumented in this encounter Insurance Type Payer Benefit Subscriber ID Effective Phone Address Plan / Dates Group O [facility] [id number] 2019-P [address] [employer] [facility] [address] [place] [address] documented as of this encounter
--- OUTSIDE RECORDS SUMMARY | 2019-11-09 10:10 | XMS REPORT | Summary of Care ---
Author Author [facility] - Health Organization [facility] - Health Address Unknown Phone Unavailable Care Team Providers Care Suspender Cutter Name Role Phone Fabien Fernandes MD Unavailable Marvin Oconnor MD PCP Ulysses Lazar 25 Unavailable Reason for Visit * Reason Comments Appointment Telehealth Encounter Details Care Team Description Date Type Department Eleno Mcnamara MD [address] [place] [address] Appointment (Telehealth) 09/25/[address] [place] [address] Allergies Comments Active Allergy Reactions Severity Noted Date Azithromycin Itching 01/07/2019 Ciprofloxacin Rash 01/27/2018 Clindamycin Other - See Medium 10/05/2016 comments, Itching Clonazepam Itching, Medium 11/23/2017 Rash, Swelling All steroids-muscle weakness Corticosteroids Other - See 01/20/2016 (Glucocorticoids) comments Doxycycline Rash Low 08/21/2019 Iodine Rash 10/05/2016 "swelling internally" per patient Cephalexin Itching, Rash 08/18/2019 Lincomycin Rash Medium 09/15/2017 Nitrofurantoin Rash 01/27/2018 Other [place]-3s Anaphylaxis 01/27/2018 States it would be fatal Penicillins Other - See High 01/20/2016 comments, Shortness of Breath Shellfish Derived Other - See 03/18/2019 comments BActrim Rash Sulfamethizole Rash 07/05/2019 New string of tetanus- went to ER , medication for throat closing up Tetanus Vaccines And Swelling High 6 Toxoid documented as of this encounter (statuses as of 09/25/2019) Medications End Date Status Medication Sig Dispensed [...] needed. 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 01/12/2019 Overview: Added automatically from request for ordonez rgery [id number] Obesity (BMI 30-39.9) 12/16/2018 Recurrent UTI 05/17/2018 [...] as of this encounter (statuses as of 09/25/2019) Resolved Problems Problem Noted Date Resolved Date Spondylosis of lumbar region without myelopathy or radiculo johanna 01/12/2019 01/16/2019 Overview: Added automatically from request for ordonez rgery [id number] documented as of this encounter (statuses as of 09/25/2019) Immunizations Name Administration Dates Next Due Influenza [...] Description Date Type Specialty Zoila Rodas AGNP [address] [place] [address] [phone] 09/27/2019 Telemedicine Nephrology Visit Laurie Hull LPC [address] [place], [place] [phone] 09/28/2019 Telemedicine Psychiatry Visit Nurse, Pcp Gen Med Nicole Team 10/17/2019 Nurse Visit Internal Medicine Eleno Mcnamara MD [address] [place] [address] [phone] 10/20/2019 Office Visit Obstetrics & Gyneco Kashif Linares MD [address] [place] [address]. [place] [address] 10/26/2019 Telemedicine Neurology Visit Beth Marquez MD [address] [place] [address]. [place] [phone] 10/26/2019 Telemedicine Psychiatry Visit Marvin Oconnor MD [address] [place], [place] [address] 11/09/2019 Office Visit Internal Medicine Sukh Harris MD [address] [place] [address] [id number] [place], [place] 6[address] 11/23/2019 Office Visit Pain Medicine Dieter Zhou MD [address] [place] [address] [id number] [place], [place] [phone] 01/03/2020 Office Visit Pulmonary Disease Health Maintenance [...] Phone Address Plan / Dates Group O [facility] [id number] 2019-P [address] [employer] [facility] [id number] [place] [address] documented as of this encounter
--- OUTSIDE RECORDS SUMMARY | 2019-11-09 10:10 | XMS REPORT | Summary of Care ---
Author Author [facility] - Health Organization [facility] - Health Address Unknown Phone Unavailable Care Team Providers Care Senior Salesforce Developer Name Role Phone Fabien Fernandes MD Unavailable Marvin Oconnor MD PCP Ulysses Lazar 25 Unavailable Reason for Visit * Reason Comments Appointment Encounter Details Care Team Description Date Type Department Eleno Mcnamara MD [address] [place] [address] Appointment 09/27/2019 Telephone [facility] [address] [place] [address] [address] [place] [address] Allergies Comments Active Allergy Reactions Severity Noted Date Azithromycin Itching 01/07/2019 Ciprofloxacin Rash 01/27/2018 Clindamycin Other - See Medium 10/05/2016 comments, Itching Clonazepam Itching, Medium 11/23/2017 Rash, Swelling All steroids-muscle weakness Corticosteroids Other - See 01/20/2016 (Glucocorticoids) comments Doxycycline Rash Low 08/21/2019 Iodine Rash 10/05/2016 "swelling internally" per patient Cephalexin Itching, Rash 08/18/2019 Lincomycin Rash Medium 09/15/2017 Nitrofurantoin Rash 01/27/2018 Other [place]-3s Anaphylaxis 01/27/2018 States it would be fatal [...] needed. 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 01/12/2019 Overview: Added automatically from request for josé luis penaery [id number] Obesity (BMI 30-39.9) 12/16/2018 Recurrent UTI 05/17/2018 [...] automatically from request for josé luis penaery [id number] documented as of this encounter (statuses as [...] Description Date Type Specialty Zoila Rodas AGNP [address] [place] [address] [phone] Arrived 09/27/2019 Telemedicine Nephrology Visit Laurie Hull LPC [address] [place], [place] [phone] 09/28/2019 Telemedicine Psychiatry Visit Eleno Mcnamara MD [address] [place] [address] [phone] 10/20/2019 Office Visit Obstetrics & Gyneco Kashif Linares MD [address] [place] [phone] 10/26/2019 Telemedicine Neurology Visit Beth Marquez MD [address] [place] [phone] 10/26/2019 Telemedicine Psychiatry Visit Marvin Oconnor MD [address] [address] [place], [place] [phone] 11/09/2019 Office Visit Internal Medicine Sukh Harris MD [address] [place] [address] [id number] [place], [place] [phone] 11/23/2019 Office Visit Pain Medicine Dieter Zhou MD [address] [place] [address] [id number] [place], [place] [phone] 01/03/2020 Office Visit Pulmonary Disease Health Maintenance [...] Effective Phone Address Plan / Dates Group [facility] [id number] 2019-P [address] [facility] [place] [id number] [place] [address] documented as of this encounter
--- OUTSIDE RECORDS SUMMARY | 2019-11-09 10:10 | XMS REPORT | Clinical Summary ---
Author Author [facility] - Health Organization [facility] - Health Address Unknown Phone Unavailable Care Team Providers Care Chef German Name Role Phone Fabien Fernandes MD Unavailable [...] Rash Medium 09/15/2017 Nitrofurantoin Rash 01/27/2018 Other [place]-3s Anaphylaxis 01/27/2018 States it would be fatal [...] needed. 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 01/12/2019 Overview: Added automatically from request for ordonez rgery [id number] Obesity (BMI 30-39.9) 12/16/2018 Recurrent UTI 05/17/2018 [...] automatically from request for josé luis silvestre [id number] Encounters Care Team Description Date Type Specialty Juanita Casas, PT DISCHARGE 09/28/2019 Clinic Physical Therapy Assessment Zoila Rodas AGNP Hypokalemia (Primary Dx) 09/27/2019 Telemedicine Nephrology Visit Eleno Mcnamara MD Appointment 09/27/2019 Telephone Obstetrics & Gyneco logy Eleno Mcnamara MD Appointment (Telehealth) 09/25/2019 Telephone Obstetrics & Gyneco logy Zoila Rodas AGNP Pre-Visit Planning 09/20/2019 Telephone Nephrology Boom Santiago MD Outpt-Anna, Pacemaker/Icd Encounter for post surgical wound check (Primary Dx); Syncope, unspecified syncope type 09/18/2019 Hospital Cardiac Electrophys iology Encounter Boom Santiago MD Assessment (ILR explant wound check); 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; jig grinder problem 09/18/2019 Telephone Cardiology Boom Santiago MD Assessment 09/18/2019 Telephone Cardiology Boom Santiago MD Appointment; Talk To Nurse 09/08/2019 Telephone Cardiology Kashif Cee MD Appointment (new patient / Jaye) 09/08/2019 Telephone Neurology Boom Santiago MD Provider, [facility] Ep Lab 2, Clc Cardiac Proc Room 09/05/2019 [facility] Cardiac Electrophys iology Encounter Giuliano Edwards [...] Boom Santiago MD Appointment 08/17/2019 Telephone Cardiac Mash Grinder Marvin Oconnor MD Lab Results 08/17/2019 Telephone Internal HammonMarvin Oconnor MD Viral URI with cough (Primary Dx); Goiter; Mesenteric panniculitis; Breast cancer screening by mammogram 08/16/2019 Office Visit Internal Medicine Doctor Unassigned, [place] 08/15/2019 Orders Only Boom Santiago MD Orders 08/14/2019 Telephone Cardiology [...] Telephone Internal Medicine Dieter Zhou MD Test, [facility] Pulmonary Function Dyspnea on exertion 07/28/2019 [facility] Pulmonary Function Visit Technologist Doctor Unassigned, [place] 07/28/2019 Orders Only Marvin Oconnor MD Results 07/27/2019 Telephone Internal HammonMarvin Oconnor MD Pcp-Lab Osteoporosis without current pathologica l fracture, unspecified osteoporosis type; Dysuria 07/26/2019 [facility] Phlebotomy Visit Marvin Oconnor MD Osteoporosis without current pathologica l fracture, unspecified osteoporosis type (Primary Dx); Dysuria; Need for shingles vaccine; Chronic pain of right ankle 07/26/2019 Office Visit Internal Medicine Boom Santiago MD Palpitations (Primary Dx) 07/20/2019 Office Visit Cardiology Doctor Unassigned, [place] 07/17/2019 Orders Only Marvin Oconnor MD Results 07/14/2019 Telephone Internal HammonMarvin Oconnor MD Pcp-Lab Dysuria 07/13/2019 [place] [facility] Phlebotomy Visit Marvin Oconnor MD Dysuria (Primary [...] Fernandes MD Pcp-Lab Urinary frequency; Dysuria 06/30/2019 [facility] Phlebotomy Visit Unknown, Attending Yduy Fernandes MD Castillo, Jorge, MD Urinary frequency (Primary Dx); Dysuria; Convulsions, unspecified convulsion type 06/30/2019 Office Visit Internal Medicine Goldie Culver RN 06/29/2019 Abstract Public Health & Gen eral Preventive Medicine from Last 3 Months Immunizations Name [...] Treatment Care Team Description Date Type Specialty Eleno Mcnamara MD [address] [place] [id number] 10/20/2019 Telemedicine Obstetrics & Gyneco logy Visit Kashif Cee MD [address] [place] [address] [address] 10/26/2019 Telemedicine Neurology Visit Marvin Oconnor MD [address] [place] [address] [place] [address] 11/09/2019 Telemedicine Internal Medicine Visit Sukh Harris MD [id number] [place] [address] [phone] 11/23/2019 Office Visit Pain Medicine DenverDieter MD [id number] [place] [address] [phone] 01/03/2020 Office Visit Pulmonary Disease Health Maintenance [...] Procedure Name Priority Date/Time Associated Diag nosis CORONARY ANGIOGRAPHY Routine 09/05/2019 10:50 AM CDT LIPID PANEL (59648)(TOTAL Routine 09/05/2019 CHOLESTEROL, 4:26 AM CDT TRIGLYCERIDES, [...] HEPATIC FUNCTION PANEL STAT 09/04/2019 Seizure s (89718) (ALB,T.PRO,BILI 7:39 AM CDT T,BU/BC,ALT,AST,ALK PHOS) BASIC [...] Routine 08/18/2019 Psychog enic nonepileptic 12:00 PM SHARE HOLDER seizure NOTICE OF PRIVACY Routine 08/18/2019 PRACTICES 10:37 AM SHARE HOLDER CONSENT/REFUSAL FOR Routine 08/18/2019 DIAGNOSIS AND TREATMENT 10:36 AM SHARE HOLDER ASSIGNMENT OF BENEFITS Routine 08/18/2019 10:35 AM SHARE HOLDER EP PROCEDURES Routine 08/18/2019 12:01 AM SHARE HOLDER POCT FLU A AND B Routine 08/16/2019 Viral URI wit h cough (MOLECULAR) AUTHORIZATION FOR RELEASE Routine 08/15/2019 OF PHI 12:01 AM SHARE HOLDER THYROID STIMULATING STAT 08/13/2019 Goiter HORMONE 9:02 PM SHARE HOLDER CBC WITH DIFFERENTIAL STAT 08/13/2019 Lower ab dominal pain 9:02 PM SHARE HOLDER TROPONIN I STAT 08/13/2019 Lower abdominal pain 9:02 PM SHARE HOLDER LIPASE STAT 08/13/2019 Lower abdominal pain 9:02 PM SHARE HOLDER HEPATIC FUNCTION PANEL STAT 08/13/2019 Lower a bdominal pain (26659) (ALB,T.PRO,BILI 9:02 PM SHARE HOLDER T,BU/BC,ALT,AST,ALK PHOS) BASIC METABOLIC PANEL STAT 08/13/2019 Lower ab dominal pain (NA, K, CL, CO2, GLUCOSE, 9:02 PM SHARE HOLDER BUN, CREATININE, CA) CBC WITH DIFFERENTIAL Routine 08/13/2019 Lower ab dominal pain 9:[address] ABDOMEN PELVIS WO STAT 08/13/2019 Lower abd ominal pain CONTRAST 8:19 PM SHARE HOLDER XR CHEST 1 VW STAT 08/13/2019 Lower abdominal pain 8:12 PM SHARE HOLDER URINALYSIS STAT 08/13/2019 Lower abdominal pain 7:56 PM SHARE HOLDER EKG-12 LEAD Routine 08/13/2019 7:52 PM SHARE HOLDER EKG-12 LEAD STAT 08/13/2019 7:48 PM SHARE HOLDER EKG-12 LEAD Routine 08/13/2019 6:37 PM SHARE HOLDER EMERGENCY SERVICES Routine 08/13/2019 AGREEMENTS AND 12:01 AM SHARE HOLDER AUTHORIZATIONS XR ANKLE 3+ VW RIGHT Routine 08/07/2019 Right mike t pain 1:50 PM SHARE HOLDER XR FOOT 3+ VW RIGHT Routine 08/07/2019 Right mike t pain 1:50 PM SHARE HOLDER EXTERNAL PROVIDER RECORDS Routine 08/04/2019 12:01 AM SHARE HOLDER PULMONARY FUNCTION TEST Routine 07/28/2019 (RESULTS) 10:43 AM SHARE HOLDER EXTERNAL PROVIDER RECORDS Routine 07/28/2019 12:01 AM SHARE HOLDER EXTERNAL PROVIDER RECORDS Routine 07/28/2019 12:01 AM SHARE HOLDER URINALYSIS Routine 07/26/2019 Dysuria 4:25 PM SHARE HOLDER VITAMIN D, 25-OH Routine 07/26/2019 Osteoporosis without 4:25 PM SHARE HOLDER current pathological fracture, unspecified osteoporosis type VARICELLA-ZOSTER VACCINE, Routine 07/26/2019 Need for shingles vaccine (SHINGRIX) 50 MCG/0.5 ML, 3:58 PM SHARE HOLDER IM EKG-12 LEAD Routine 07/20/2019 11:23 AM SHARE HOLDER EXTERNAL PROVIDER RECORDS Routine 07/17/2019 12:01 AM SHARE HOLDER URINE CULTURE Routine 07/13/2019 Dysuria 4:19 PM SHARE HOLDER URINALYSIS Routine 07/13/2019 Dysuria 4:19 PM SHARE HOLDER EXTERNAL PROVIDER RECORDS Routine 07/11/2019 12:01 AM SHARE HOLDER CBC WITH DIFFERENTIAL STAT 07/05/2019 Rash 1:35 PM SHARE HOLDER CBC WITH DIFFERENTIAL STAT 07/05/2019 Rash 1:35 PM SHARE HOLDER BASIC METABOLIC PANEL STAT 07/05/2019 Rash (NA, K, CL, CO2, GLUCOSE, 1:35 PM SHARE HOLDER BUN, CREATININE, CA) EMERGENCY SERVICES Routine 07/05/2019 AGREEMENTS AND 12:01 AM SHARE HOLDER AUTHORIZATIONS EXTRA TUBE URINE CULTURE Routine 07/02/2019 9:54 AM SHARE HOLDER URINALYSIS STAT 07/02/2019 Cough 9:54 AM SHARE HOLDER XR CHEST 1 VW STAT 07/02/2019 Cough 7:58 AM SHARE HOLDER EXTRA TUBE LT. BLUE STAT 07/02/2019 7:40 AM SHARE HOLDER CBC WITH DIFFERENTIAL STAT 07/02/2019 Cough 7:40 AM SHARE HOLDER COMP. METABOLIC PANEL STAT 07/02/2019 Cough (29098) 7:40 AM SHARE HOLDER CBC WITH DIFFERENTIAL Routine 07/02/2019 Cough 7:40 AM SHARE HOLDER CONSENT/REFUSAL FOR Routine 07/02/2019 DIAGNOSIS AND TREATMENT 7:08 AM SHARE HOLDER HOSPITAL ADMISSION Routine 07/02/2019 12:01 AM SHARE HOLDER URINALYSIS [facility] 06/30/2019 Urinary frequen cy 2:37 PM SHARE HOLDER Dysuria URINE CULTURE [facility] 06/30/2019 Urinary frequen cy 2:37 PM SHARE HOLDER Dysuria from Last 3 Months Results * CORONARY ANGIOGRAPHY (09/05/2019 10:50 AM CDT) Specimen Performing Organization Address [facility] one Number CATH * Lipid Panel (Total Cholesterol, Triglycerides, HDL) - Fasting (09/05/2019 4:26 AM CDT) CHOL 254 (H) 120 - 200 mg/dL [facility] LABORATOR Y [facility] HDL 38 (L) >50 mg/dL [facility]AT[facility] HDLC RATIO 6.7 (H) <=4.5 [facility] LAB[facility]AT[facility] TRIG 285 (H) 30 - 170 mg/dL [facility] LDL CHOL 159 <=160 mg/dL [facility] VLDL 57 5 - 60 mg/dL [facility] Specimen Blood - VENOUS Performing Organization Address [facility] one Number [facility] LABORATORY CLIA: [id number], [address] [place], [place] [address] [facility] * Urinalysis (09/04/2019 9:13 AM CDT) Only the most recent of 6 results within the time period is included. APPEARANCE Cloudy (A) Clear [facility] COLOR Yellow Yellow [facility] PH 6.0 4.8 - 8.0 [facility] SP GRAVITY 1.009 1.003 - 1.030 [facility] GLU U QUAL Normal Normal [facility] BLOOD Negative Negative [facility] KETONES Negative Negative [facility] PROTEIN Negative Negative [facility] UROBILIN Normal Normal [facility] BILIRUBIN Negative Negative [facility] LABORATORY [facility] NITRITE Negative Negative [facility] LABORATORY [facility] LEUK MICHAEL 250/uL (A) Negative [facility] LABORATORY [facility] RBC/HPF 0 0 - 3 HPF [facility] LABORATORY [facility] WBC/HPF 4 0 - 5 HPF [facility] LABORATORY [facility] BACTERIA Few (A) Negative [facility] LABORATORY [facility] MUCOUS Slight (A) Negative LPF [facility] LABORATORY [facility] SQ EPITH 2 <=2 HPF [facility] LABORATORY [facility] Specimen Urine - URINE, CLEAN CATCH Performing Organization Address [facility] [place] [facility] Ph one Number [facility]OR[facility]ORY CLIA: [id number], [address] [place] [address] [facility] * Drug Screen ER (09/04/2019 9:13 AM CDT) AMPHET Negative Negative [facility] LABORATORY [facility] Cocaine Negative Negative [facility]OR[facility]ORY Metabolite [facility] OPIATES Negative Negative [facility]OR[facility] THC Negative Negative [facility] LABORATORY [facility] Specimen Urine - URINE, CLEAN CATCH Narrative Performed At Urine Drug Cutoff Ranges [facility] Amphetamine: 1,000 ng/mL [facility] Cocaine: 150 ng/mL [place] Opiates: 300 ng/mL Cannabinoids: 50 ng/mL The results are to be used only for med ical (i.e., treatment) purposes. Unconfirmed screening results must not be used for non-medical purposes (e.g., employment testing, legal testing). Performing Organization Address City/[facility] [place] Ph one Number [facility]OR[facility] CLIA: [id number], [address] [place] [address] [facility] * Chest 1 View (09/04/2019 8:09 [...] superimposed u brittany the heart. Procedure Note [facility], Radiant Results Inft User - 09/04/2019 8:38 AM CDT EXAM: XR CHEST 1 VW HISTORY: weakness COMPARISON: None. FINDINGS: The heart and great vessels are normal and the lungs are satisfactorily expanded and clear except for minor basilar subsegmental atelectasis on the left. A loop recorder is superimposed upon the heart. Performing Organization Address City/State/Zipcode Ph one Number PACS/VR/DOSE * EKG-12 LEAD (09/04/2019 7:50 AM CDT) Specimen Performing Organization Address [facility] Ph one Number HST * Lactic Acid Whole Blood (09/04/2019 7:44 AM CDT) [facility] LACTIC ACID 1.90 0.50 - 2.20 mmol/L [facility] Specimen Blood - VENOUS Performing Organization Address [facility] [place] Ph one Number [facility] CLIA: [id number], [address] [place], [place] [address] [facility] * BLOOD CULTURE SCREEN (09/04/2019 7:43 AM CDT) Only the most recent of 2 results within the time period is included. Pathologist [facility] Blood No organisms isolated No growth [facility] LAB ORATORY Culture-Aerobic Comment: GRACE Previous preliminary verified [facility] result was Culture In Progress on 09/04/2019 at 1601 CDT Previous preliminary verified result was No growth at 24 hours on 09/05/2019 at 1301 CDT Previous preliminary verified result was No growth at 48 hours on 09/06/2019 at 1301 CDT Previous preliminary verified result was No growth at 72 hours on 09/07/2019 at 1301 CDT Blood No organisms isolated No growth [facility] ORATORY Culture-Anaerob Comment: GRACE ic Previous preliminary verified [facility] result was Culture In Progress on [...] Performing Organization Address City/State/Zipcode Ph one Number [facility]OR[facility]ORY CLIA: [id number], [address] [place], [place] [address] [facility] * CBC WITH DIFFERENTIAL (09/04/2019 7:39 AM CDT) Only the most recent of 4 results within the time period is included. WBC 5.87 4.30 - 11.10 [facility] 10*3/L [facility] RBC 4.98 3.93 - 5.25 10*6/L [facility] HGB 14.0 11.6 - 15.0 g/dL [facility] HCT 41.9 35.7 - 45.2 % [facility] MCV 84.1 80.6 - 95.5 fL [facility] MCH 28.1 25.9 - 32.8 pg [facility] MCHC 33.4 31.6 - 35.1 g/dL [facility] RDW-SD 39.8 39.0 - 49.9 fL [facility] RDW-CV 13.1 12.0 - 15.5 % [facility] PLT 186 166 - 358 10*3/L [facility] MPV 10.8 9.5 - 12.9 fL [facility] NRBC/100 WBC 0.0 0.0 - 10.0 /100 WBCs [facility] NRBC x10^3 <0.01 10*3/L [facility] GRAN MAT (NEUT) 55.1 % [facility] LABORATOR Y % [facility] IMM GRAN % 0.30 % [facility] LYMPH % 32.9 % [facility] MONO % 9.2 % [facility] EOS % 2.0 % [facility] BASO % 0.5 % [facility] GRAN MAT 3.23 1.88 - 7.09 10*3/uL [facility] LABOR ATORY x10^3(ANC) [facility] IMM GRAN x10^3 <0.03 0.00 - 0.06 10*3/uL [facility] LABOR ATORY [facility] LYMPH x10^3 1.93 1.32 - 3.29 10*3/uL [facility] LABOR ATORY [facility] MONO x10^3 0.54 0.33 - 0.92 10*3/uL [facility] LABOR ATORY [facility] EOS x10^3 0.12 0.03 - 0.39 10*3/uL [facility] LABOR ATORY [facility] BASO x10^3 0.03 0.01 - 0.07 10*3/uL [facility] LABOR ATORY [facility] Specimen Blood - VENOUS Performing Organization Address [facility] one Number [facility] CLIA: [id number], [address] [place] [address] [facility] * N-TERMINAL PRO-BNP (09/04/2019 7:39 AM CDT) NT-proBNP 24 <=125 pg/mL [facility] LABORATORY [facility] Specimen Blood - VENOUS Narrative Performed At [facility] has been reported to cause a neg ative bias, interpret results relative to [facility] patient's use of biotin. [facility] Performing Organization Address [facility] one Number [facility] CLIA: [id number], [address] [place] [address] [facility] * aPTT (09/04/2019 7:39 AM CDT) APTT Patient 33 26 - 36 Seconds [facility] LABORATOR Y [facility] Specimen Blood - VENOUS Performing Organization Address [facility] one Number [facility] CLIA: [id number], [address] [place] [address] [facility] * Prothrombin Time (PT) / INR (09/04/2019 7:39 AM CDT) Only the most recent of 2 results within the time period is included. PROTIME PATIENT 11.1 10.1 - 12.6 Seconds [facility] LABO RATORY [facility] INR 1.0Comment: Normal INR <1.1; [facility] LAB ORATORY Warfarin Therapeutic range 2.0 [facility] to 3.0 or 2.5 to 3.5, [facility] depending upon the indications. Specimen Blood - VENOUS Performing Organization Address [facility] one Number [facility] CLIA: [id number], [address] [place] [address] [facility] * Glycosylated Hemoglobin (A1C) (09/04/2019 7:39 AM CDT) Pathologist [facility] HGB A1C 6.2 (H) 4.0 - 6.0 % NGSP [facility] Specimen Blood - VENOUS Performing Organization Address [facility] one Number [facility] CLIA: [id number], [address] [place] [address] [facility] * Ethanol Level (09/04/2019 7:39 AM CDT) Pathologist [facility] ALCOHOL <10 mg/dL [facility] LABOR[facility]ORY [facility] Specimen Blood - VENOUS Narrative Performed At Toxic Greater than or equal to 80 mg/dL. [facility] LABORA TORY NOTE: Whole blood values are approximately 10% to 15% lower than serum and [facility] plasma. CAMPUS Performing Organization Address [facility] one Number [facility] CLIA: [id number], [address] [place] [address] [facility] * Basic Metabolic Panel (NA, K, CL, CO2, GLUCOSE, BUN, CREATININE, CA) (09/04/2019 7:39 AM CDT) Only the most recent of 3 results within the time period is included. NA 140 135 - 145 mmol/L [facility] K 3.3 (L) 3.5 - 5.0 mmol/L [facility] CL 99 98 - 108 mmol/L [facility] LABORATOR Y [facility] CO2 TOTAL 28 23 - 31 mmol/L [facility] LABORATORY [facility] AGAP 13 2 - 16 [facility] LABORAT[facility] BUN 17 7 - 23 mg/dL [facility]ORAT[facility] GLUCOSE 113 (H) 70 - 110 mg/dL [facility] LABORATORY [facility] CREATININE 0.65 0.50 - 1.04 mg/dL [facility] LABORAT ORY [facility]PAR[facility] CALCIUM 9.3 8.6 - 10.6 mg/dL [facility] LABORATO RY [facility] eGFR 92.1 mL/min/1.73m2 [facility] LABORAT[facility] Calculation SERVICES-CLEAR (Non-[facility] Iraqi) eGFR 111.6 mL/min/1.73m2 [facility] LABORATORY Calculation SERVICES-CLEAR ([facility] Iraqi) Specimen Blood - VENOUS Narrative Performed At [facility] of Glomerular Filtration Rate (GFR) and S taging of Kidney Disease* [facility] LABORATORY + + +------ + [facility] | GFR (mL/min/1.73 m2) | With Kidney Damage | [facility] Kidney Damage [place] + + -------+ + | >90 | [...] Performing Organization Address City/State/Zipcode Ph one Number [facility] CLIA: [id number], [address] [place] [phone] SERVICES-[facility] * Hepatic Function Panel (ALB, T.PRO, BILI T, BU/BC, ALT, AST, ALK PHOS) (09/04/2019 7:39 AM CDT) Only the most recent of 2 results within the time period is included. TOTAL BILI 0.3 0.1 - 1.1 mg/dL [facility] LABORATOR Y [facility] BILI UNCON 0.3 0.1 - 1.1 mg/dL [facility] LABORATOR Y [facility] BILI CONJ 0.0 0.0 - 0.3 mg/dL [facility] LABORATOR Y [facility] T PROTEIN 7.1 6.3 - 8.2 g/dL [facility] ALBUMIN 4.4 3.5 - 5.0 g/dL [facility] ALK PHOS 66 34 - 122 U/L [facility] LAB[facility] ALTv 24 5 - 35 U/L [facility] LABORATORY [facility] AST(SGOT) 22 13 - 40 U/L [facility] LABORATORY [facility] Specimen Blood - VENOUS Performing Organization Address [facility] one Number [facility] CLIA: [id number], [address] [address] 98 [facility] * Troponin I (09/04/2019 7:39 AM CDT) Only the most recent of 2 results within the time period is included. Pathologist [facility] TROPONIN I <0.012 <=0.034 ng/mL [facility] Specimen Blood - VENOUS Narrative Performed At Equal or Less than 0.034 ng/ml---Normal [facility] Note: Cardiac troponin begins to rise 3-4 hours after the onset of ischemia. [facility] Repeat in 4-6 hours if the sample was d rawn within 3-4 hours of the onset of the HINCKLEY symptom and found normal. Between 0.035 and [...] patient's use of biotin. Performing Organization Address City/[facility] [place] Ph one Number [facility] CLIA: [id number], 200 [facility], [place] [address] [facility] * CONSENT/REFUSAL FOR DIAGNOSIS AND TREATMENT (09/04/2019 7:11 AM CDT) Only the most recent of 3 results within the time period is included. Specimen Performing Organization Address City/State/Zipcode Ph one Number HIM * HOSPITAL ADMISSION (09/04/2019 12:01 AM CDT) Only the most recent of 2 results within the time period is included. Specimen Performing Organization Address City/State/Zipcode Ph one Number HIM * EXTERNAL PROVIDER RECORDS (09/04/2019 12:01 AM CDT) Only the most recent of 6 results within the time period is included. Specimen Performing Organization Address City/State/Zipcode Ph one Number HIM * ILR DEVICE CHECK (08/29/2019 12:00 AM CDT) Specimen Performing Organization Address [facility]/State/Zipcode Ph one Number EP * NOTICE OF PRIVACY PRACTICES (08/18/2019 10:37 AM SHARE HOLDER) Specimen Performing Organization Address [facility] one Number HIM * ASSIGNMENT OF BENEFITS (08/18/2019 10:35 AM SHARE HOLDER) Specimen Performing Organization Address [facility]/State/Zipcode Ph one Number HIM * EP PROCEDURES (08/18/2019 12:01 AM SHARE HOLDER) Specimen Performing Organization Address [facility] Ph one Number HIM * POCT FLU A AND B (MOLECULAR) (08/16/2019) POCT INFLUENZA Negative Negative - Negative A POCT INFLUENZA Negative Negative - Negative B Specimen Swab * AUTHORIZATION FOR RELEASE OF PHI (08/15/2019 12:01 AM SHARE HOLDER) Specimen Performing Organization Address [facility]/State[facility] Ph one Number HIM * THYROID STIMULATING HORMONE (08/13/2019 9:02 PM SHARE HOLDER) TSH 1.93Comment: Biotin has been 0.45 - 4.70 mIU/L [facility] reported to cause a negative SERVICES-CLEAR bias, interpret results [facility] relative to patient's use of biotin. Specimen Blood - VENOUS Performing Organization Address [facility]/State/[facility] Ph one Number [facility] CLIA: [id number], [address] [place], [place] [address] [facility] * Lipase Serum (08/13/2019 9:02 PM SHARE HOLDER) LIPASE 205 0 - 220 U/L [facility] SERVICES[facility] Specimen Blood - VENOUS Performing Organization Address City/State/Zipcode Ph one Number [facility] CLIA: [id number], [address] [address] SERVICES-[facility] * CT Abdomen/Pelvis W/O Contrast (08/13/2019 8:19 PM SHARE HOLDER) Specimen Impressions Performed At Findings suggest mesenteric [...] are seen in the bones. Procedure Note [facility], Radiant Results Inft User - 08/13/2019 9:04 PM SHARE HOLDER EXAM: CT ABDOMEN AND PELVIS WITHOUT CONTRAST [...] no follow-up is recommended. Performing Organization Address [facility] [place] Ph one Number PACS/VR/DOSE * EKG-12 LEAD (08/13/2019 7:52 PM SHARE HOLDER) Specimen Performing Organization Address [facility] Ph one Number HST * EKG-12 LEAD (08/13/2019 6:37 PM SHARE HOLDER) Specimen Performing Organization Address [facility] [place] Ph one Number HST * EMERGENCY SERVICES AGREEMENTS AND AUTHORIZATIONS (08/13/2019 12:01 AM SHARE HOLDER) Only the most recent of 2 results within the time period is included. Specimen Performing Organization Address [facility] [place] Ph one Number HIM * XR FOOT 3+ VW RIGHT (08/07/2019 1:50 PM SHARE HOLDER) Specimen Impressions Performed At No acute bony [...] Results Inft User - 08/07/2019 3:14 PM SHARE HOLDER EXAM: XR FOOT 3+ VW RIGHT, EXAM: XR ANKLE 3+ VW RIGHT HISTORY: pain COMPARISON: 11/16/2017 FINDINGS: Imaging of the right foot and ankle was obtained. Osteopenia is noted. Joint spaces are maintained. Calcaneal enthesophytes are noted. Mild dorsal talonavicular osteophytosis is present. The ankle mortise is congruent. IMPRESSION No acute bony abnormality. Mild osteoarthrosis. Performing Organization Address [facility] [place] Ph one Number PACS/VR/DOSE * XR ANKLE 3+ VW RIGHT (08/07/2019 1:50 PM SHARE HOLDER) Specimen Impressions Performed At No acute bony [...] Results Inft User - 08/07/2019 3:14 PM SHARE HOLDER EXAM: XR FOOT 3+ VW RIGHT, EXAM: XR ANKLE 3+ VW RIGHT HISTORY: pain COMPARISON: 11/16/2017 FINDINGS: Imaging of the right foot and ankle was obtained. Osteopenia is noted. Joint spaces are maintained. Calcaneal enthesophytes are noted. Mild dorsal talonavicular osteophytosis is present. The ankle mortise is congruent. IMPRESSION No acute bony abnormality. Mild osteoarthrosis. Performing Organization Address [facility] [place] Ph one Number PACS/VR/DOSE * PULMONARY FUNCTION TEST (RESULTS) (07/28/2019 10:43 AM SHARE HOLDER) Specimen Performing Organization Address [facility] [place] Ph one Number PFT * VITAMIN D, 25-OH (07/26/2019 4:25 PM SHARE HOLDER) VIT D 25OH 23 (L) 25 - 80 ng/mL [facility] SERVICES Specimen Blood Narrative Performed At Deficiency: <20 ng/mL [facility] Insufficiency: 20-24 ng/mL SERVICES Optimal: 25-80 ng/mL Performing Organization Address City/[facility] one Number [facility] SERVICES CLIA: [id number], [address] [place] [address] [facility] * EKG-12 LEAD (07/20/2019 11:23 AM SHARE HOLDER) Specimen Performing Organization Address [facility] one Number HST * URINE CULTURE (07/13/2019 4:19 PM SHARE HOLDER) Only the most recent of 2 results within the time period is included. URINE CULTURE >100,000 CFU/mL Klebsiella [facility] pneumoniae SERVICES Specimen [...] pyelonephritis or systemic disease. Performing Organization Address City/[facility] one Number [facility] SERVICES CLIA: [id number], [address] [place] [address] [facility] * EXTRA TUBE URINE CULTURE (07/02/2019 9:54 AM SHARE HOLDER) Specimen Urine - URINE, CLEAN CATCH Performing Organization Address [facility] one Number [facility] CLIA: [id number], [address] [place], [place] [address] [facility] * EXTRA TUBE LT. BLUE (07/02/2019 7:40 AM SHARE HOLDER) Specimen Blood Performing Organization Address City/State/Zipcode Ph one Number [facility] CLIA: [id number], [address] [place], [place] [address] [facility] * COMP. METABOLIC PANEL ([id number]) (07/02/2019 7:40 AM SHARE HOLDER) NA 140 135 - 145 mmol/L [facility] K 3.2 (L) 3.5 - 5.0 mmol/L [facility] CL 101 98 - 108 mmol/L [facility] CO2 TOTAL 28 23 - 31 mmol/L [facility] AGAP 11 2 - 16 [facility] BUN 16 7 - 23 mg/dL [facility] GLUCOSE 122 (H) 70 - 110 mg/dL [facility] CREATININE 0.59 0.50 - 1.04 mg/dL [facility] TOTAL BILI 0.5 0.1 - 1.1 mg/dL [facility] CALCIUM 8.7 8.6 - 10.6 mg/dL [facility] T PROTEIN 6.7 6.3 - 8.2 g/dL [facility] ALBUMIN 4.3 3.5 - 5.0 g/dL [facility] ALK PHOS 74 34 - 122 U/L [facility] ALTv 31 5 - 35 U/L [facility] AST(SGOT) 30 13 - 40 U/L [facility] eGFR 102.9 mL/min/1.73m2 [facility] Calculation [facility] (Non-[facility]) eGFR 124.8 mL/min/1.73m2 [facility] Calculation [facility]) Specimen Blood - VENOUS Narrative Performed At [facility] [place] of Glomerular Filtration Rate (GFR) and S taging of Kidney Disease* [facility] + + +------ + [...] abnormalities in imaging tests). Performing Organization Address City/State/[facility] Ph one Number [facility] CLIA: [id number], [address] [place], [place] [address] [facility] from Last 3 Months Insurance Type Payer Benefit Subscriber ID Effective Phone Address Plan / Dates Group HMO [facility] [id number] 2019-P [address] [facility] [place] [facility] [id number] [place] [address]
--- OUTSIDE RECORDS SUMMARY | 2019-11-09 10:10 | XMS REPORT | Summary of Care ---
Author Author [facility] - Health Organization [facility] - Health Address Unknown Phone Unavailable Care Team Providers Care Prescriptionist Name Role Phone Fabien Fernandes MD Unavailable Marvin Oconnor MD PCP Ulysses Lazar 25 Unavailable Reason for Visit * Reason Comments Appointment Telehealth Encounter Details Care Team Description Date Type Department Eleno Mcnamara MD [address] [place] [phone] Appointment (Telehealth) 09/25/[address] [place] [address] Allergies Comments Active Allergy Reactions Severity Noted Date Azithromycin Itching 01/07/2019 Ciprofloxacin Rash 01/27/2018 Clindamycin Other - See Medium 10/05/2016 comments, Itching Clonazepam Itching, Medium 11/23/2017 Rash, Swelling All steroids-muscle weakness Corticosteroids Other - See 01/20/2016 (Glucocorticoids) comments Doxycycline Rash Low 08/21/2019 Iodine Rash 10/05/2016 "swelling internally" per patient Cephalexin Itching, Rash 08/18/2019 Lincomycin Rash Medium 09/15/2017 Nitrofurantoin Rash 01/27/2018 Other [place]-3s Anaphylaxis 01/27/2018 States it would be fatal Penicillins Other - See High 01/20/2016 comments, Shortness of Breath Shellfish Derived Other - See 03/18/2019 comments BActrim Rash Sulfamethizole Rash 07/05/2019 New string of tetanus- went to ER , medication for throat closing up Tetanus Vaccines And Swelling High 6 Toxoid documented as of this encounter (statuses as of 09/26/2019) Medications End Date Status Medication Sig Dispensed [...] needed. 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/2019 Overview: Added automatically from request for ordonez rgery [id number] Obesity (BMI 30-39.9) 12/16/2018 Recurrent UTI 05/17/2018 [...] as of this encounter (statuses as of 09/26/2019) Resolved Problems Problem Noted Date Resolved Date Spondylosis of lumbar region without myelopathy or radiculo johanna 01/12/2019 01/16/2019 Overview: Added automatically from request for ordonez rgery [id number] documented as of this encounter (statuses as of 09/26/2019) Immunizations Name Administration Dates Next Due Influenza [...] Description Date Type Specialty Zoila Rodas AGNP [address] [place] [phone] 09/27/2019 Telemedicine Nephrology Visit Laurie Hull LPC [address] [place], [place] [phone] 09/28/2019 Telemedicine Psychiatry Visit Eleno Mcnamara MD [address] [place] [phone] 10/20/2019 Office Visit Obstetrics & Gyneco Kashif Linares MD [address] [place] [phone] 10/26/2019 Telemedicine Neurology Visit Beth Marquez MD [address] [place] [phone] 10/26/2019 Telemedicine Psychiatry Visit Marvin Oconnor MD [address] [place], [place] [phone] 11/09/2019 Office Visit Internal Medicine Sukh Harris MD [address] [place] [address] [id number] [place], [place] [phone] 11/23/2019 Office Visit Pain Medicine iDeter Zhou MD [address] [place] [address] [id number] [place], [place] [phone] 01/03/2020 Office Visit Pulmonary Disease Health Maintenance [...] Plan / Dates Group [facility] [id number] 2019-P [address] [employer] [facility] [id number] [place] [address] documented as of this encounter
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
--- OUTSIDE RECORDS SUMMARY | 2019-11-09 10:11 | XMS REPORT | Clinical Summary ---
Author Author [facility] - Health Organization [facility] - Health Address Unknown Phone Unavailable Care Team Providers Care State Attorney Name Role Phone Fabien Fernandes MD Unavailable [...] Rash Medium 09/15/2017 Nitrofurantoin Rash 01/27/2018 Other Haugan-3s Anaphylaxis 01/27/2018 States it would be fatal [...] needed. Active fluticasone propionate 50 Use 1 [place] 16 g 0 mcg/actuation nasal in each [...] mouth 0 Psychogenic nonepileptic daily. seizure Active KCL 10 mEq tablet Take 1 tablet 30 tablet 0 by mouth 0 daily. 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 01/12/2019 Overview: Added automatically from request for ordonez beckyery [id number] Obesity (BMI 30-39.9) 12/16/2018 Recurrent UTI 05/17/2018 [...] automatically from request for josé luis silvestre [id number] Encounters Care Team Description Date Type Specialty Marvin Oconnor MD Pain of right hand (Primary Dx) 10/11/2019 Telemedicine Internal Medicine Visit Zoila Rodas AGNP Rx Concern/Question 09/28/2019 Telephone Nephrology Juanita Casas, PT DISCHARGE 09/28/2019 Clinic Physical Therapy Assessment Zoila Rodas AGNP Hypokalemia (Primary Dx); Essential hypertension; Calcium oxalate crystals in urine 09/27/2019 Telemedicine Nephrology Visit Eleno Mcnamara MD [...] Assessment (ILR explant wound check); 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; clip riveter problem 09/18/2019 Telephone Cardiology Boom Santiago MD Assessment 09/18/2019 Telephone Cardiology Boom Santiago MD Appointment; Talk To Nurse 09/08/2019 Telephone Cardiology Kashif Cee MD Appointment (new patient / Jaye) 09/08/2019 Telephone Neurology Boom Santiago MD Provider, Clc Ep Lab 2, Clc Cardiac [...] Boom Santiago MD Appointment 08/17/2019 Telephone Cardiac Sap Pp Consultant Marvin Oconnor MD Lab Results 08/17/2019 Telephone Internal [place] Viral URI with cough (Primary Dx); Goiter; Mesenteric panniculitis; Breast cancer screening by mammogram 08/16/2019 Office Visit Internal Medicine Doctor Unassigned, [place] 08/15/2019 Orders Only Boom Santiago MD Orders [...] Zhou MD Test, [facility] Pulmonary Function Dyspnea on exertion 07/28/2019 Data Entry Supervisor Pulmonary Function Visit Technologist Doctor Unassigned, [place] 07/28/2019 Orders Only Marvin Oconnor MD Results 07/27/2019 Telephone Internal [place] Pcp-Lab Osteoporosis without current pathologica l fracture, unspecified osteoporosis type; Dysuria 07/26/2019 Data Entry Supervisor Phlebotomy Visit Marvin Oconnor MD Osteoporosis without current pathologica l fracture, unspecified osteoporosis type (Primary Dx); Dysuria; Need for shingles vaccine; Chronic pain of right ankle 07/26/2019 Office Visit Internal Medicine Boom Santiago MD Palpitations (Primary Dx) 07/20/2019 Office Visit Cardiology Doctor Unassigned, [place] 07/17/2019 Orders Only Marvin Oconnor MD Results 07/14/2019 Telephone Internal Medicine from Last 3 Months Immunizations Name [...] Description Date Type Specialty Eleno Mcnamara MD [address] [place] [address] [id number] 10/20/2019 Telemedicine Obstetrics & Gyneco logy Visit Kashif Cee MD [address] [place] [address]. [place] [address] 10/26/2019 Telemedicine Neurology Visit Marvin Oconnor MD [address] Casanova [address] [place] [address] [phone] 11/09/2019 Telemedicine Internal Medicine Visit Sukh Harris MD [address] [place] [address] [id number] [place], [place] [id number] 11/23/2019 Office Visit Pain Medicine Dieter Zhou MD [address] [place] [address] [id number] [place], [place] [id number] 01/03/2020 Office Visit Pulmonary Disease Marvin Oconnor MD [address] Casanova [address] [place] [address] [id number] 01/09/2020 Appointment Radiology Marvin Oconnor MD [address] Casanova [address] [place] [address] [id number] 01/09/2020 Appointment Radiology Health Maintenance Due Date Last Done Comments [...] Routine 09/05/2019 10:50 AM CDT LIPID PANEL ([id number])(TOTAL Routine 09/05/2019 CHOLESTEROL, 4:26 AM CDT TRIGLYCERIDES, [...] HEPATIC FUNCTION PANEL STAT 09/04/2019 Seizure s ([id number]) (ALB,T.PRO,BILI 7:39 AM CDT T,BU/BC,ALT,AST,ALK PHOS) BASIC [...] Routine 08/18/2019 Psychog enic nonepileptic 12:00 PM PLASTIC TOP ASSEMBLER seizure NOTICE OF PRIVACY Routine 08/18/2019 PRACTICES 10:37 AM PLASTIC TOP ASSEMBLER CONSENT/REFUSAL FOR Routine 08/18/2019 DIAGNOSIS AND TREATMENT 10:36 AM PLASTIC TOP ASSEMBLER ASSIGNMENT OF BENEFITS Routine 08/18/2019 10:35 AM PLASTIC TOP ASSEMBLER EP PROCEDURES Routine 08/18/2019 12:01 AM PLASTIC TOP ASSEMBLER POCT FLU A AND B Routine 08/16/2019 Viral URI wit h cough (MOLECULAR) AUTHORIZATION FOR RELEASE Routine 08/15/2019 OF PHI 12:01 AM PLASTIC TOP ASSEMBLER THYROID STIMULATING STAT 08/13/2019 Goiter HORMONE 9:02 PM PLASTIC TOP ASSEMBLER CBC WITH DIFFERENTIAL STAT 08/13/2019 Lower ab dominal pain 9:02 PM PLASTIC TOP ASSEMBLER TROPONIN I STAT 08/13/2019 Lower abdominal pain 9:02 PM PLASTIC TOP ASSEMBLER LIPASE STAT 08/13/2019 Lower abdominal pain 9:02 PM PLASTIC TOP ASSEMBLER HEPATIC FUNCTION PANEL STAT 08/13/2019 Lower a bdominal pain (07229) (ALB,T.PRO,BILI 9:02 PM PLASTIC TOP ASSEMBLER T,BU/BC,ALT,AST,ALK PHOS) BASIC METABOLIC PANEL STAT 08/13/2019 Lower ab dominal pain (NA, K, CL, CO2, GLUCOSE, 9:02 PM PLASTIC TOP ASSEMBLER BUN, CREATININE, CA) CBC WITH DIFFERENTIAL Routine 08/13/2019 Lower ab dominal pain 9:02 PM P[employer]IC [employer]ER CT ABDOMEN PELVIS WO STAT 08/13/2019 Lower abd ominal pain CONTRAST 8:19 PM PLASTIC TOP ASSEMBLER XR CHEST 1 VW STAT 08/13/2019 Lower abdominal pain 8:12 PM PLASTIC TOP ASSEMBLER URINALYSIS STAT 08/13/2019 Lower abdominal pain 7:56 PM PLASTIC TOP ASSEMBLER EKG-12 LEAD Routine 08/13/2019 7:52 PM PLASTIC TOP ASSEMBLER EKG-12 LEAD STAT 08/13/2019 7:48 PM PLASTIC TOP ASSEMBLER EKG-12 LEAD Routine 08/13/2019 6:37 PM PLASTIC TOP ASSEMBLER EMERGENCY SERVICES Routine 08/13/2019 AGREEMENTS AND 12:01 AM PLASTIC TOP ASSEMBLER AUTHORIZATIONS XR ANKLE 3+ VW RIGHT Routine 08/07/2019 Right mike t pain 1:50 PM PLASTIC TOP ASSEMBLER XR FOOT 3+ VW RIGHT Routine 08/07/2019 Right mike t pain 1:50 PM PLASTIC TOP ASSEMBLER EXTERNAL PROVIDER RECORDS Routine 08/04/2019 12:01 AM PLASTIC TOP ASSEMBLER PULMONARY FUNCTION TEST Routine 07/28/2019 (RESULTS) 10:43 AM PLASTIC TOP ASSEMBLER EXTERNAL PROVIDER RECORDS Routine 07/28/2019 12:01 AM PLASTIC TOP ASSEMBLER EXTERNAL PROVIDER RECORDS Routine 07/28/2019 12:01 AM PLASTIC TOP ASSEMBLER URINALYSIS Routine 07/26/2019 Dysuria 4:25 PM PLASTIC TOP ASSEMBLER VITAMIN D, 25-OH Routine 07/26/2019 Osteoporosis without 4:25 PM PLASTIC TOP ASSEMBLER current pathological fracture, unspecified osteoporosis type VARICELLA-ZOSTER VACCINE, Routine 07/26/2019 Need for shingles vaccine (SHINGRIX) 50 MCG/0.5 ML, 3:58 PM PLASTIC TOP ASSEMBLER IM EKG-12 LEAD Routine 07/20/2019 11:23 AM PLASTIC TOP ASSEMBLER EXTERNAL PROVIDER RECORDS Routine 07/17/2019 12:01 AM PLASTIC TOP ASSEMBLER from Last 3 Months Results * CORONARY ANGIOGRAPHY (09/05/2019 10:50 AM CDT) Specimen Performing Organization Address City/[facility] Ph one Number CATH * Lipid Panel (Total Cholesterol, Triglycerides, HDL) - Fasting (09/05/2019 4:26 AM CDT) CHOL 254 (H) 120 - 200 mg/dL [facility] HDL 38 (L) >50 mg/dL [facility] HDLC RATIO 6.7 (H) <=4.5 [facility] TRIG 285 (H) 30 - 170 mg/dL [facility] LDL CHOL 159 <=160 mg/dL [facility] VLDL 57 5 - 60 mg/dL [facility] Specimen Blood - VENOUS Performing Organization Address City/[facility] Ph one Number [facility] CLIA: [id number], [address] [place], [place] [address] [facility] * Urinalysis (09/04/2019 9:13 AM CDT) Only the most recent of 3 results within the time period is included. APPEARANCE Cloudy (A) Clear [facility] COLOR Yellow Yellow [facility] PH 6.0 4.8 - 8.0 [facility] SP GRAVITY 1.009 1.003 - 1.030 [facility] GLU U QUAL Normal Normal [facility] BLOOD Negative Negative [facility] KETONES Negative Negative [facility] PROTEIN Negative Negative [facility] UROBILIN Normal Normal [facility] BILIRUBIN Negative Negative [facility] NITRITE Negative Negative [facility] LEUK MICHAEL 250/uL (A) Negative [facility] RBC/HPF 0 0 - 3 HPF [facility] WBC/HPF 4 0 - 5 HPF [facility] BACTERIA Few (A) Negative [facility] MUCOUS Slight (A) Negative LPF [facility] SQ EPITH 2 <=2 HPF [facility] Specimen Urine - URINE, CLEAN CATCH Performing Organization Address [facility] one Number [facility] CLIA: [id number], [address] [place] [address] 98 [facility] * Drug Screen ER (09/04/2019 9:13 AM CDT) AMPHET Negative Negative [facility] Cocaine Negative Negative [facility] Metabolite [facility] OPIATES Negative Negative [facility] THC Negative Negative [facility] Specimen Urine - URINE, CLEAN CATCH Narrative Performed At Urine Drug Cutoff Ranges [facility] Amphetamine: 1,000 ng/mL [facility] Cocaine: 150 ng/mL TRURO Opiates: 300 ng/mL Cannabinoids: 50 ng/mL The results are to be used only for med ical (i.e., treatment) purposes. Unconfirmed screening results must not be used for non-medical purposes (e.g., employment testing, legal testing). Performing Organization Address [facility] one Number [facility] CLIA: [id number], [address] [place] [address] 98 [facility] * Chest 1 View (09/04/2019 8:09 AM [...] 7:50 AM CDT) Specimen Performing Organization Address City/State[facility] Ph one Number HST * Lactic Acid Whole Blood (09/04/2019 7:44 AM CDT) LACTIC ACID 1.90 0.50 - 2.20 mmol/L [facility] DAPHNE GARCIA [facility] Specimen Blood - VENOUS Performing Organization Address [facility] Ph one Number [facility] CLIA: [id number], [address] [place], [place] [address] [facility] * BLOOD CULTURE SCREEN (09/04/2019 7:43 AM CDT) Only the most recent of 2 results within the time period is included. Blood No organisms isolated No growth [facility] Culture-Aerobic Comment: [facility] Previous preliminary verified [facility] result was Culture In Progress on 09/04/2019 at 1601 CDT Previous preliminary verified result was No growth at 24 hours on 09/05/2019 at 1301 CDT Previous preliminary verified result was No growth at 48 hours on 09/06/2019 at 1301 CDT Previous preliminary verified result was No growth at 72 hours on 09/07/2019 at 1301 CDT Blood No organisms isolated No growth [facility] Culture-Anaerob Comment: [facility] Previous preliminary verified [facility] MPUS result was Culture In Progress [...] Organization Address [facility] Ph one Number [facility] CLIA: [id number], [address] [place], [place] [address] [facility] * CBC WITH DIFFERENTIAL (09/04/2019 7:39 AM CDT) Only the most recent of 2 results within the time period is included. WBC 5.87 4.30 - 11.10 [facility] 10*3/L [facility] RBC 4.98 3.93 - 5.25 10*6/L [facility] HGB 14.0 11.6 - 15.0 g/dL [facility] HCT 41.9 35.7 - 45.2 % [facility] MCV 84.1 80.6 - 95.5 fL [facility] MCH 28.1 25.9 - 32.8 pg [facility] MCHC 33.4 31.6 - 35.1 g/dL [facility] RDW-SD 39.8 39.0 - 49.9 fL [facility] RDW-CV 13.1 12.0 - 15.5 % [facility] PLT 186 166 - 358 10*3/L [facility] MPV 10.8 9.5 - 12.9 fL [facility] NRBC/100 WBC 0.0 0.0 - 10.0 /100 WBCs [facility] NRBC x10^3 <0.01 10*3/L [facility] GRAN MAT (NEUT) 55.1 % [facility] % [facility] IMM GRAN % 0.30 % [facility] LYMPH % 32.9 % [facility] MONO % 9.2 % [facility] EOS % 2.0 % [facility] BASO % 0.5 % [facility] GRAN MAT 3.23 1.88 - 7.09 10*3/uL [facility] x10^3(ANC) [facility] IMM GRAN x10^3 <0.03 0.00 - 0.06 10*3/uL [facility] LYMPH x10^3 1.93 1.32 - 3.29 10*3/uL [facility] MONO x10^3 0.54 0.33 - 0.92 10*3/uL [facility] EOS x10^3 0.12 0.03 - 0.39 10*3/uL [facility]OR ATORY [facility] BASO x10^3 0.03 0.01 - 0.07 10*3/uL [facility] LABOR [facility] Specimen Blood - VENOUS Performing Organization Address [facility] one Number [facility] CLIA: [id number], [address] [place] [address] [facility] * N-TERMINAL PRO-BNP (09/04/2019 7:39 AM CDT) NT-proBNP 24 <=125 pg/mL [facility] Specimen Blood - VENOUS Narrative Performed At [facility] has been reported to cause a neg ative bias, interpret results relative to [facility] patient's use of biotin. [facility] Performing Organization Address City/[facility] one Number [facility] CLIA: [id number], [address] [place] [address] [facility] * aPTT (09/04/2019 7:39 AM CDT) APTT Patient 33 26 - 36 Seconds [facility] LABORATOR Y [facility] Specimen Blood - VENOUS Performing Organization Address [facility] one Number [facility] CLIA: [id number], [address] [place] [address] [facility] * Prothrombin Time (PT) / INR (09/04/2019 7:39 AM CDT) Only the most recent of 2 results within the time period is included. PROTIME PATIENT 11.1 10.1 - 12.6 Seconds [facility] LAB[facility] RATORY [facility] INR 1.0Comment: Normal INR <1.1; [facility] Warfarin Therapeutic range 2.0 [facility] to 3.0 or 2.5 to 3.5, [facility] depending upon the indications. Specimen Blood - VENOUS Performing Organization Address [facility] one Number [facility] CLIA: [id number], [address] [place], [place] [address] [facility] * Glycosylated Hemoglobin (A1C) (09/04/2019 7:39 AM CDT) HGB A1C 6.2 (H) 4.0 - 6.0 % NGSP [facility] Specimen Blood - VENOUS Performing Organization Address [facility] one Number [facility] CLIA: [id number], [address] [place], [place] [address] [facility] * Ethanol Level (09/04/2019 7:39 AM CDT) ALCOHOL <10 mg/dL [facility] Specimen Blood - VENOUS Narrative Performed At Toxic Greater than or equal to 80 mg/dL. [facility] NOTE: Whole blood values are approximately 10% to 15% lower than serum and [facility] plasma. CAMPUS Performing Organization Address [facility] one Number [facility] CLIA: [id number], [address] [place] [address] 98 [facility] * Basic Metabolic Panel (NA, K, CL, CO2, GLUCOSE, BUN, CREATININE, CA) (09/04/2019 7:39 AM CDT) Only the most recent of 2 results within the time period is included. NA 140 135 - 145 mmol/L [facility] K 3.3 (L) 3.5 - 5.0 mmol/L [facility] CL 99 98 - 108 mmol/L [facility] LABORATOR Y [facility] CO2 TOTAL 28 23 - 31 mmol/L [facility] AGAP 13 2 - 16 [facility] BUN 17 7 - 23 mg/dL [facility] GLUCOSE 113 (H) 70 - 110 mg/dL [facility] CREATININE 0.65 0.50 - 1.04 mg/dL [facility] LABORAT ORY SERVICES-CLEAR [facility] CALCIUM 9.3 8.6 - 10.6 mg/dL [facility] LABORATO RY SERVICES-CLEAR [facility] eGFR 92.1 mL/min/1.73m2 [facility] Calculation SERVICES-[facility] ([facility] [place]) eGFR 111.6 mL/min/1.73m2 [facility] Calculation SERVICES-CLEAR ([facility]) Specimen Blood - VENOUS Narrative Performed At [facility] of Glomerular Filtration Rate (GFR) and S taging of Kidney Disease* [facility] + + +------ + [facility] | GFR (mL/min/1.73 m2) | With Kidney Damage | [facility] Kidney Damage TRURO + + -------+ + | >90 | [...] Performing Organization Address City/State/Zipcode Ph one Number [facility] CLIA: [id number], [address] [place] [address] 98 [facility] * Hepatic Function Panel (ALB, T.PRO, BILI T, BU/BC, ALT, AST, ALK PHOS) (09/04/2019 7:39 AM CDT) Only the most recent of 2 results within the time period is included. TOTAL BILI 0.3 0.1 - 1.1 mg/dL [facility] LABORATOR [facility] BILI UNCON 0.3 0.1 - 1.1 mg/dL [facility] BILI CONJ 0.0 0.0 - 0.3 mg/dL [facility] T PROTEIN 7.1 6.3 - 8.2 g/dL [facility] ALBUMIN 4.4 3.5 - 5.0 g/dL [facility] ALK PHOS 66 34 - 122 U/L [facility] ALTv 24 5 - 35 U/L [facility] AST(SGOT) 22 13 - 40 U/L [facility] Specimen Blood - VENOUS Performing Organization Address [facility] one Number [facility] CLIA: [id number], [address] [place] [address] [facility] * Troponin I (09/04/2019 7:39 AM CDT) Only the most recent of 2 results within the time period is included. TROPONIN I <0.012 <=0.034 ng/mL [facility] Specimen Blood - VENOUS Narrative Performed At Equal or Less than 0.034 ng/ml---Normal [facility] Note: Cardiac troponin begins to rise 3-4 hours after the onset of ischemia. [facility] Repeat in 4-6 hours if the sample was d rawn within 3-4 hours of the onset of the TRURO symptom and found normal. Between 0.035 and [...] patient's use of biotin. Performing Organization Address [facility] one Number [facility] CLIA: [id number], [address] [place] [address] [facility] * CONSENT/REFUSAL FOR DIAGNOSIS AND TREATMENT (09/04/2019 7:11 AM CDT) Only the most recent of 2 results within the time period is included. Specimen Performing Organization Address City/State/Zipcode Ph one Number HIM * HOSPITAL ADMISSION (09/04/2019 12:01 AM CDT) Specimen Performing Organization Address [facility] Ph one Number HIM * EXTERNAL PROVIDER RECORDS (09/04/2019 12:01 AM CDT) Only the most recent of 5 results within the time period is included. Specimen Performing Organization Address [facility]/State/[facility] Ph one Number HIM * ILR DEVICE CHECK (08/29/2019 12:00 AM CDT) Specimen Performing Organization Address [facility] Ph one Number EP * NOTICE OF PRIVACY PRACTICES (08/18/2019 10:37 AM PLASTIC TOP ASSEMBLER) Specimen Performing Organization Address [facility]/State/[facility] Ph one Number HIM * ASSIGNMENT OF BENEFITS (08/18/2019 10:35 AM PLASTIC TOP ASSEMBLER) Specimen Performing Organization Address [facility]/State/[facility] Ph one Number HIM * EP PROCEDURES (08/18/2019 12:01 AM PLASTIC TOP ASSEMBLER) Specimen Performing Organization Address [facility] Ph one Number HIM * POCT FLU A AND B (MOLECULAR) (08/16/2019) Pathologist [facility] POCT INFLUENZA Negative Negative - Negative A POCT INFLUENZA Negative Negative - Negative B Specimen Swab * AUTHORIZATION FOR RELEASE OF PHI (08/15/2019 12:01 AM PLASTIC TOP ASSEMBLER) Specimen Performing Organization Address [facility] Ph one Number HIM * THYROID STIMULATING HORMONE (08/13/2019 9:02 PM PLASTIC TOP ASSEMBLER) [facility] TSH 1.93Comment: Biotin has been 0.45 - 4.70 mIU/L [facility] reported to cause a negative [place] bias, interpret results [facility] relative to patient's use of biotin. Specimen Blood - VENOUS Performing Organization Address [facility] one Number [facility] CLIA: [id number], [address] [facility], [place] [address] [facility] * Lipase Serum (08/13/2019 9:02 PM PLASTIC TOP ASSEMBLER) Pathologist [facility] LIPASE 205 0 - 220 U/L [facility] Specimen Blood - VENOUS Performing Organization Address [facility] Ph one Number [facility] CLIA: [id number], [address] [place], [place] [address] [facility] * CT Abdomen/Pelvis W/O Contrast (08/13/2019 8:19 PM PLASTIC TOP ASSEMBLER) Specimen Impressions Performed At Findings suggest mesenteric [...] Results Inft User - 08/13/2019 9:04 PM PLASTIC TOP ASSEMBLER EXAM: CT ABDOMEN AND PELVIS WITHOUT CONTRAST [...] no follow-up is recommended. Performing Organization Address [facility] Ph one Number PACS/VR/DOSE * EKG-12 LEAD (08/13/2019 7:52 PM PLASTIC TOP ASSEMBLER) Specimen Performing Organization Address [facility] Ph one Number HST * EKG-12 LEAD (08/13/2019 6:37 PM PLASTIC TOP ASSEMBLER) Specimen Performing Organization Address [facility] Ph one Number HST * EMERGENCY SERVICES AGREEMENTS AND AUTHORIZATIONS (08/13/2019 12:01 AM PLASTIC TOP ASSEMBLER) Specimen Performing Organization Address [facility] Ph one Number HIM * XR FOOT 3+ VW RIGHT (08/07/2019 1:50 PM PLASTIC TOP ASSEMBLER) Specimen Impressions Performed At No acute bony [...] Results Inft User - 08/07/2019 3:14 PM PLASTIC TOP ASSEMBLER EXAM: XR FOOT 3+ VW RIGHT, EXAM: XR ANKLE 3+ VW RIGHT HISTORY: pain COMPARISON: 11/16/2017 FINDINGS: Imaging of the right foot and ankle was obtained. Osteopenia is noted. Joint spaces are maintained. Calcaneal enthesophytes are noted. Mild dorsal talonavicular osteophytosis is present. The ankle mortise is congruent. IMPRESSION No acute bony abnormality. Mild osteoarthrosis. Performing Organization Address [facility] one Number PACS/VR/DOSE * XR ANKLE 3+ VW RIGHT (08/07/2019 1:50 PM PLASTIC TOP ASSEMBLER) Specimen Impressions Performed At No acute bony [...] The ankle mortise is congruent. Procedure Note [facility], Radiant Results Inft User - 08/07/2019 3:14 PM PLASTIC TOP ASSEMBLER EXAM: XR FOOT 3+ VW RIGHT, EXAM: XR ANKLE 3+ VW RIGHT HISTORY: pain COMPARISON: 11/16/2017 FINDINGS: Imaging of the right foot and ankle was obtained. Osteopenia is noted. Joint spaces are maintained. Calcaneal enthesophytes are noted. Mild dorsal talonavicular osteophytosis is present. The ankle mortise is congruent. IMPRESSION No acute bony abnormality. Mild osteoarthrosis. Performing Organization Address [facility] one Number PACS/VR/DOSE * PULMONARY FUNCTION TEST (RESULTS) (07/28/2019 10:43 AM PLASTIC TOP ASSEMBLER) Specimen Performing Organization [facility] one Number PFT * VITAMIN D, 25-OH (07/26/2019 4:25 PM PLASTIC TOP ASSEMBLER) VIT D 25OH 23 (L) 25 - 80 ng/mL [facility] Specimen Blood Narrative Performed At Deficiency: <20 ng/mL [facility] Insufficiency: 20-24 ng/mL SERVICES Optimal: 25-80 ng/mL Performing Organization [facility] one Number [facility] CLIA: [id number], [address] [place] [address] * EKG-12 LEAD (07/20/2019 11:23 AM PLASTIC TOP ASSEMBLER) Specimen Performing Organization Address City/State/Zipcode Ph one Number HST from Last 3 Months Insurance Type Payer Benefit Subscriber ID Effective Phone Address Plan / Dates Group [facility] [id number] 2019-P [address] [facility] [id number] [place] [address]
--- OUTSIDE RECORDS SUMMARY | 2019-11-09 10:11 | XMS REPORT | Summary of Care ---
Author Author [facility] - [facility] Organization [facility] - [facility] Address Unknown Phone Unavailable Care Team Providers Care Wort Extractor Name Role Phone Fabien Fernandes MD Unavailable Marvin Oconnor MD PCP Ulysses Lazar 25 Unavailable Reason for Referral * Radiology Services (JAMES) Referred By Contact Referred To Contact Status Reason Specialty Diagnoses / Procedures Marvin Oconnor MD [address] [place] [address] [place], [place] [phone] New Request Diagnostic Diagnoses Radiology Pain of right hand Right wrist pain Right elbow pain P rocedures XR FOREARM 2 VW RIGHT * Radiology Services (JAMES) Referred By Contact Referred To Contact Status Reason Specialty Diagnoses / Procedures Marvin Oconnor MD [address] [place] [address] [place], [place] [phone] New Request Diagnostic Diagnoses Radiology Pain of right hand Right wrist pain Right elbow pain P rocedures XR ELBOW >3 VW RIGHT * Radiology Services (JAMES) Referred By Contact Referred To Contact Status Reason Specialty Diagnoses / Procedures Marvin Oconnor MD [address] [place] [address] [place] [phone] New Request Diagnostic Diagnoses Radiology Pain of right hand Right wrist pain Right elbow pain P rocedures XR HAND 3+ VW RIGHT Reason for Visit * Radiology Services (JAMES) Referred By Contact Referred To Contact Status Reason Specialty Diagnoses / Procedures Marvin Oconnor MD [address] [place] [address] [place] [phone] New Request Diagnostic Diagnoses Radiology Pain of right hand Right wrist pain Right elbow pain P rocedures XR HAND 3+ VW RIGHT Encounter Details Care Team Description Date Type Department Marvin Oconnor MD [address] [place] [address] [phone] Arrived 10/25/2019 [facility] Encounter [facility] [address] [place] [phone] Allergies Comments Active Allergy Reactions Severity Noted Date Azithromycin Itching 01/07/2019 Ciprofloxacin Rash 01/27/2018 Clindamycin Other - See Medium 10/05/2016 comments, Itching Clonazepam Itching, Medium 11/23/2017 Rash, Swelling All steroids-muscle weakness Corticosteroids Other - See 01/20/2016 (Glucocorticoids) comments Doxycycline Rash Low 08/21/2019 Iodine Rash 10/05/2016 "swelling internally" per patient Cephalexin Itching, Rash 08/18/2019 Lincomycin Rash Medium 09/15/2017 Nitrofurantoin Rash 01/27/2018 Other Mccormick-3s Anaphylaxis 01/27/2018 States it would be fatal Penicillins Other - See High 01/20/2016 comments, Shortness of Breath Shellfish Derived Other - See 03/18/2019 comments BActrim Rash Sulfamethizole Rash 07/05/2019 New string of tetanus- went to ER , medication for throat closing up Tetanus Vaccines And Swelling High 6 Toxoid documented as of this encounter (statuses as of 10/26/2019) Medications End Date Status Medication Sig Dispensed [...] mg by 0 10/31 mouth. 8 Active gabapentin 400 mg TAKE 1 90 capsule 2 07/13/19 2 capsuleIndications: CAPSULE BY 0 Radiculopathy of MOUTH THREE thoracolumbar region TIMES A DAY Active cannabidiol, CBD, Take by 0 (CANNABIDIOL ORAL) mouth 3 (three) times daily as needed. Active fluticasone propionate 50 Use 1 [place] 16 g 0 mcg/actuation nasal in each [...] tablet 0 by mouth 0 daily. Active hydroCHLOROthiazide 25 mg Take 1 tablet 90 tablet 3 tabletIndications: by mouth 0 Hypertension, unspecified daily. type Active conjugated estrogens Insert 0.5 g 30 g 2 (PREMARIN) 0.625 mg/gram into vagina 0 vaginal creamIndications: at bedtime. 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 Date Recorded COVID-19 Exposure Response 10/25/2019 12:57 PM CDT In the last month, have you been in contact with No / Unsure someone who was confirmed or suspected to have Coronavirus / COVID-19? documented as of this encounter Last Filed Vital Signs Not on filedocumented in this encounter Plan of Treatment Care Team Description Date Type Specialty Kashif Cee MD [address] [place] [address] [phone] 10/26/2019 Telemedicine Neurology Visit Jamison Blank MD [address] [place] [phone] Beth Marquez MD [address] [place] [phone] 10/26/2019 Telemedicine Psychiatry Visit Marvin Oconnor MD [address] [place] [address] [place] [phone] 11/09/2019 Telemedicine Internal Medicine Visit Sukh Harris MD [address] [place] [address] [id number] [place], [place] [phone] 11/23/2019 Office Visit Pain Medicine Dieter Zhou MD [address] [place] [address] [id number] [place], [place] [phone] 01/03/2020 Office Visit Pulmonary Disease Marvin Oconnor MD [address] [place] [address] [place] [phone] 01/09/2020 Appointment Radiology Marvin Oconnor MD [address] [place] [address] [place] [phone] 01/09/2020 Appointment Radiology Health Maintenance Due Date Last Done Comments HEPATITIS C (HCV) SCREEN 1955 Breast Cancer Screening 08/08/2019 08/08/2018 (MAMMOGRAM) Zoster Recombinant 09/20/2019 07/26/2019 Vaccine (SHINGRIX) (2 of 2) PAP SMEAR 08/02/2021 08/02/2018 COLONOSCOPY 06/22/202306/22/2018, 017 INFLUENZA VACCINE Completed 04/17/2019, 018, 03/21/2017 DTaP,Tdap,and Td Vaccines Discontinued PNEUMOCOCCAL 0-64 YEARS Discontinued COMBINED SERIES documented as of this encounter Implants Device Identifier Shelf Expiration Date Model / Serial / L ot Implanted Type Area Manufactur er Loop Recorder-08/18/2019 Chest Implanted: 08/18/2019 (Quantity not on file) documented as of this encounter Procedures Comments Procedure Name Priority Date/Time Associated Diag nosis XR HAND 3+ VW RIGHT JAMES 10/25/2019 Pain of ri ght hand 1:33 PM CDT Right wrist pain Right elbow pain XR FOREARM 2 VW RIGHT JAMES 10/25/2019 Pain of right hand 1:33 PM CDT Right wrist pain Right elbow pain XR ELBOW >3 VW RIGHT JAMES 10/25/2019 Pain of r ight hand 1:33 PM CDT Right wrist pain Right elbow pain ASSIGNMENT OF BENEFITS Routine 10/25/2019 12:59 PM CDT CONSENT/REFUSAL FOR Routine 10/25/2019 DIAGNOSIS AND TREATMENT 12:59 PM CDT documented in this encounter Results * XR FOREARM 2 VW RIGHT (10/25/2019 1:33 PM CDT) Specimen Impressions Performed At Dorsal proximal forearm soft tissue contusion. PACS/ VR/DOSE Osteoarthrosis of the hand. Narrative Performed At EXAM: PACS/VR/DOSE XR HAND 3+ VW RIGHT, EXAM: XR FOREARM 2 VW RIGHT, EXAM: XR ELBOW >3 VW RIGHT HISTORY: R hand, wrist and thumb pain, please ru le out fracture COMPARISON: None FINDINGS: Imaging of the hand, elbow and forearm demonstrates DIP joint space narrowing with subchondral sclerosis an d osteophyte formation. Distal humeral epicondylar enthesophyte format ion is present. Alignment is maintained. No fractures or effusions a re seen. Mild swelling is seen over the dorsal proximal forearm. Procedure Note [facility], Radiant Results Inft User - 10/25/2019 1:45 PM CDT EXAM: XR HAND 3+ VW RIGHT, EXAM: XR FOREARM 2 VW RIGHT, EXAM: XR ELBOW >3 VW RIGHT HISTORY: R hand, wrist and thumb pain, please rule out fracture COMPARISON: None FINDINGS: Imaging of the hand, elbow and forearm demonstrates DIP joint space narrowing with subchondral sclerosis and osteophyte formation. Distal humeral epicondylar enthesophyte formation is present. Alignment is maintained. No fractures or effusions are seen. Mild swelling is seen over the dorsal proximal forearm. IMPRESSION Dorsal proximal forearm soft tissue contusion. Osteoarthrosis of the hand. Performing Organization Address [facility] one Number PACS/VR/DOSE * XR ELBOW >3 VW RIGHT (10/25/2019 1:33 PM CDT) Specimen Impressions Performed At Dorsal proximal forearm soft tissue contusion. PACS/ VR/DOSE Osteoarthrosis of the hand. Narrative Performed At EXAM: PACS/VR/DOSE XR HAND 3+ VW RIGHT, EXAM: XR FOREARM 2 VW RIGHT, EXAM: XR ELBOW >3 VW RIGHT HISTORY: R hand, wrist and thumb pain, please ru le out fracture COMPARISON: None FINDINGS: Imaging of the hand, elbow and forearm demonstrates DIP joint space narrowing with subchondral sclerosis an d osteophyte formation. Distal humeral epicondylar enthesophyte format ion is present. Alignment is maintained. No fractures or effusions a re seen. Mild swelling is seen over the dorsal proximal forearm. Procedure Note [facility], Radiant Results Inft User - 10/25/2019 1:45 PM CDT EXAM: XR HAND 3+ VW RIGHT, EXAM: XR FOREARM 2 VW RIGHT, EXAM: XR ELBOW >3 VW RIGHT HISTORY: R hand, wrist and thumb pain, please rule out fracture COMPARISON: None FINDINGS: Imaging of the hand, elbow and forearm demonstrates DIP joint space narrowing with subchondral sclerosis and osteophyte formation. Distal humeral epicondylar enthesophyte formation is present. Alignment is maintained. No fractures or effusions are seen. Mild swelling is seen over the dorsal proximal forearm. IMPRESSION Dorsal proximal forearm soft tissue contusion. Osteoarthrosis of the hand. Performing Organization Address [facility] Ph one Number PACS/VR/DOSE * XR HAND 3+ VW RIGHT (10/25/2019 1:33 PM CDT) Specimen Impressions Performed At Dorsal proximal forearm soft tissue contusion. PACS/ VR/DOSE Osteoarthrosis of the hand. Narrative Performed At EXAM: PACS/VR/DOSE XR HAND 3+ VW RIGHT, EXAM: XR FOREARM 2 VW RIGHT, EXAM: XR ELBOW >3 VW RIGHT HISTORY: R hand, wrist and thumb pain, please ru le out fracture COMPARISON: None FINDINGS: Imaging of the hand, elbow and forearm demonstrates DIP joint space narrowing with subchondral sclerosis an d osteophyte formation. Distal humeral epicondylar enthesophyte format ion is present. Alignment is maintained. No fractures or effusions a re seen. Mild swelling is seen over the dorsal proximal forearm. Procedure Note [facility], Radiant Results Inft User - 10/25/2019 1:45 PM CDT EXAM: XR HAND 3+ VW RIGHT, EXAM: XR FOREARM 2 VW RIGHT, EXAM: XR ELBOW >3 VW RIGHT HISTORY: R hand, wrist and thumb pain, please rule out fracture COMPARISON: None FINDINGS: Imaging of the hand, elbow and forearm demonstrates DIP joint space narrowing with subchondral sclerosis and osteophyte formation. Distal humeral epicondylar enthesophyte formation is present. Alignment is maintained. No fractures or effusions are seen. Mild swelling is seen over the dorsal proximal forearm. IMPRESSION Dorsal proximal forearm soft tissue contusion. Osteoarthrosis of the hand. Performing Organization Address City/State/Zipcode Ph one Number PACS/VR/DOSE documented in this encounter Visit Diagnoses Diagnosis Pain of right hand Pain in limb Right wrist pain Pain in joint, forearm Right elbow pain Pain in joint, upper arm documented in this encounter Insurance Type Payer Benefit Subscriber ID Effective Phone Address Plan / Dates Group [facility] [id number] 2019-[address] [employer] [facility] [id number] [place] [address] n [facility] [place] [address] documented as of this encounter
--- OUTSIDE RECORDS SUMMARY | 2019-11-09 10:11 | XMS REPORT | Summary of Care ---
Author Author [facility] - Health Organization [facility] - Health Address Unknown Phone Unavailable Care Team Providers Care Research Fellow Name Role Phone Fabien Fernandes MD Unavailable Marvin Oconnor MD PCP Ulysses Lazar 25 Unavailable Reason for Referral * Radiology Services (JAMES) Referred By Contact Referred To Contact Status Reason Specialty Diagnoses / Procedures Marvin Oconnor MD [facility] Casanova [address] [place] [address] New Request Diagnostic Diagnoses Radiology Pain of right hand P rocedures XR HAND 3+ VW RIGHT Reason for Visit * Reason Comments Hand Pain Encounter Details Care Team Description Date Type Department Marvin Oconnor MD [facility] Peace [address] [address] Pain of right hand (Primary Dx) 10/11/2019 Telemedicine [facility] Health Interna l Visit Medicine- [facility] [address], [address] [place] [address] Allergies Comments Active Allergy Reactions Severity Noted Date Azithromycin Itching 01/07/2019 Ciprofloxacin Rash 01/27/2018 Clindamycin Other - See Medium 10/05/2016 comments, Itching Clonazepam Itching, Medium 11/23/2017 Rash, Swelling All steroids-muscle weakness Corticosteroids Other - See 01/20/2016 (Glucocorticoids) comments Doxycycline Rash Low 08/21/2019 Iodine Rash 10/05/2016 "swelling internally" per patient Cephalexin Itching, Rash 08/18/2019 Lincomycin Rash Medium 09/15/2017 Nitrofurantoin Rash 01/27/2018 Other [place]-3s Anaphylaxis 01/27/2018 States it would be fatal Penicillins Other - See High 01/20/2016 comments, Shortness of Breath Shellfish Derived Other - See 03/18/2019 comments BActrim Rash Sulfamethizole Rash 07/05/2019 New string of tetanus- went to ER , medication for throat closing up Tetanus Vaccines And Swelling High 6 Toxoid documented as of this encounter (statuses as of 10/11/2019) Medications End Date Status Medication Sig Dispensed [...] needed. Active fluticasone propionate 50 Use 1 [place] 16 g 0 mcg/actuation nasal in each [...] 30 tablet 0 by mouth 0 daily. 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 01/12/2019 Overview: Added automatically from request for josé luis silvestre [id number] Obesity (BMI 30-39.9) 12/16/2018 Recurrent UTI 05/17/2018 [...] as of this encounter (statuses as of 10/11/2019) Resolved Problems Problem Noted Date Resolved Date Spondylosis of lumbar region without myelopathy or radiculo johanna 01/12/2019 01/16/2019 Overview: Added automatically from request for josé luis penaery [id number] documented as of this encounter (statuses as of 10/11/2019) Immunizations Name Administration Dates Next Due Influenza [...] filedocumented in this encounter Progress Notes * Marvin Oconnor MD - 10/11/2019 1:00 PM CDT Internal Medicine Telemedicine Clinic Note Location of Patient: Home Location or Provider: Faculty Office Date of Service: 10/11/2019 Chief Complaint: R hand pain HPI: John Nieto is a 64 year old female who has given verbal consent for a te lemedicine encounter today. Telemedicine encounter conducted due to the COVID-19 pandemic. ID was confirmed by Name. Today's telemedicine encounter was conducted via video (audio and video) encounter. Patient with PMH of non-epileptic seiz ure, chronic interstitial cystitis,HTN, HLD,multiple drug allergies, osteopo rosis,anxiety/depression, seasonal allergies, kidney stones presents for follo w up evaluation of her R hand pain. Patient notes that since last visit on 08/29, her R hand/wrist/thumb pain has persisted, tender to palpation and making i t difficult to do every day tasks. She notes swelling is somewhat improved but still very painful. She denies overt falls or trauma but does think she may hav e injured it during one of her epileptic episodes. She has tried wrapping it, p utting it in splints (both soft and hard) and found all of those too painful to do. She has been using ice and Tylenol as needed. ROS: Review of Systems Constitutional: Negative for fever. HENT: Negative for sore throat. Respiratory: Negative for cough and shortness of breath. Cardiovascular: Negative for chest pain. Gastrointestinal: Positive for abdominal distention and abdominal pain. Negative for constipation and diarrhea. Genitourinary: Positive for dysuria and frequency. Musculoskeletal: Positive for arthralgias and joint swelling. Neurological: Positive for seizures. Psychiatric/Behavioral: Positive for agitation. Medications: Current Outpatient Medications Medication Sig Dispense Refill KCL 10 mEq tablet Take 1 tablet by mouth daily. 30 tablet 0 SERTraline 100 mg tablet Take 1 tablet by mouth daily. 30 tablet 1 cefUROXime 500 mg tablet Take 1 tablet by mouth 2 (two) times daily. 6 table t 0 famotidine 40 mg tablet Take 1 tablet by mouth daily. 30 tablet 0 hydrOXYzine 25 mg tablet Take 2 tablets by mouth 2 (two) times daily as need ed for Itching. 30 tablet 0 cefUROXime 250 mg tablet Take 1 tablet by mouth 2 (two) times daily. 14 tabl et 0 VITAMIN D3 10 mcg (400 unit) tablet Take 1 tablet by mouth daily. fluticasone propionate 50 mcg/actuation nasal spray Use 1 [place] in each nost ril 2 (two) times daily. 16 g 0 cannabidiol, CBD, (CANNABIDIOL ORAL) Take by mouth 3 (three) times daily as needed. gabapentin 400 mg capsule TAKE 1 CAPSULE BY MOUTH THREE TIMES A DAY 90 capsu le 2 hydroCHLOROthiazide 25 mg tablet Take 1 tablet by mouth daily. 90 tablet 3 montelukast 10 mg tablet Take 10 mg by mouth. dicyclomine 20 mg tablet Take 20 mg by mouth 4 (four) times daily. omeprazole 40 mg capsule 40 mg 2 (two) times daily. 3 cetirizine 10 mg tablet Take 10 mg by mouth every morning. 3 No current facility-administered medications for this visit. Past Medical Hx: Past Medical History: Diagnosis Date Depression Frequent falls Hyperlipidemia Hypertension IBS (irritable bowel syndrome) Low back pain Osteoporosis b/l hip Seizure (nonepileptic psychogenic) Physical Exam: A physical exam was not conducted during this telemedicine encoun ter, however upon verbal evaluation the following was noted: Constitutional: Alert and in no distress Resp: Breathing comfortably Neuro: answers questions appropriately Psych: mood/ affect normal ASSESSMENT/PLAN John Nieto is a 64 year old female with PMH as above presenting with: Pain of right hand (primary encounter diagnosis) Comment: while on visual exam, patient's hand did not appear swollen and only charles d mild bruising, given that symptoms have been ongoing for over 1 month, will ob tain XR to rule out fracture Plan: - XR HAND 3+ VW RIGHT - c/w Tylenol prn pain - c/w RICE therapy Follow up in 1 month as scheduled A total of 15 minutes were spent on this encounter which includes time spent wit h the patient, chart review, ordering tests/ referrals, and documentation. Marvin Oconnor MD 10/11/2019 1:14 PM documented in this encounter Plan of Treatment Care Team Description Date Type Specialty Eleno Mcnamara MD [address] [place] [address] [phone] 10/20/2019 Telemedicine Obstetrics & Gyneco logy Visit Kashif Cee MD [address] [place] [address] [phone] 10/26/2019 Telemedicine Neurology Visit Beth Marquez MD [address] [place] [address] [phone] 10/26/2019 Telemedicine Psychiatry Visit Marvin Oconnor MD [facility] [address] Casanova [address] [place] [address] [phone] 11/09/2019 Telemedicine Internal Medicine Visit Sukh Harris MD [address] [place] [address] [id number] [place], [place] 274705 11/23/2019 Office Visit Pain Medicine Dieter Zhou MD [address] [place] [address] [id number] [place], [place] 309715 01/03/2020 Office Visit Pulmonary Disease Marvin Oconnor MD [address] [facility] [address] Casanova [address] [place] [address] [phone] 01/09/2020 Appointment Radiology Marvin Oconnor MD [address] [place] [place], [place] 836165 01/09/2020 Appointment Radiology Order Schedule Name Type Priority Associated Diag noses Expected: 10/11/2019, Expires: 1 XR HAND 3+ VW RIGHT IMAGING JAMES Pain of ri ght hand Health Maintenance Due Date Last Done Comments [...] filedocumented in this encounter Visit Diagnoses Diagnosis Pain of right hand - Primary Pain in limb documented in this encounter Insurance Type Payer Benefit Subscriber ID Effective Phone Address Plan / Dates Group [facility] [id number] 2019-P [address] [employer] [facility] [address] [place] [address] (Home) [place] [address] documented as of this encounter
--- OUTSIDE RECORDS SUMMARY | 2019-11-09 10:11 | XMS REPORT | Summary of Care ---
Author Author [facility] - Health Organization [facility] - Health Address Unknown Phone Unavailable Care Team Providers Care Polymer Tester Name Role Phone Fabien Fernandes MD Unavailable Marvin Oconnor MD PCP Ulysses Lazar 25 Unavailable Reason for Visit * Reason Comments Follow-up Encounter Details Care Team Description Date Type Department Zoila Rodas AGNP [address] [place] [phone] Hypokalemia (Primary Dx); Essential hypertension; Calcium oxalate crystals in urine 09/27/2019 Telemedicine [facility] Health Visit [facility]phrology-[facility] [address] [place] [address] Allergies Comments Active Allergy Reactions Severity Noted Date Azithromycin Itching 01/07/2019 Ciprofloxacin Rash 01/27/2018 Clindamycin Other - See Medium 10/05/2016 comments, Itching Clonazepam Itching, Medium 11/23/2017 Rash, Swelling All steroids-muscle weakness Corticosteroids Other - See 01/20/2016 (Glucocorticoids) comments Doxycycline Rash Low 08/21/2019 Iodine Rash 10/05/2016 "swelling internally" per patient Cephalexin Itching, Rash 08/18/2019 Lincomycin Rash Medium 09/15/2017 Nitrofurantoin Rash 01/27/2018 Other [place]-3s Anaphylaxis 01/27/2018 States it would be fatal Penicillins Other - See High 01/20/2016 comments, Shortness of Breath Shellfish Derived Other - See 03/18/2019 comments BActrim Rash Sulfamethizole Rash 07/05/2019 New string of tetanus- went to ER , medication for throat closing up Tetanus Vaccines And Swelling High 6 Toxoid documented as of this encounter (statuses as of 09/29/2019) Medications End Date Status Medication Sig Dispensed [...] needed. 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 01/12/2019 Overview: Added automatically from request for josé luis penaery [id number] Obesity (BMI 30-39.9) 12/16/2018 Recurrent UTI 05/17/2018 [...] as of this encounter (statuses as of 09/29/2019) Resolved Problems Problem Noted Date Resolved Date Spondylosis of lumbar region without myelopathy or radiculo johanna 01/12/2019 01/16/2019 Overview: Added automatically from request for ordonez rgery [id number] documented as of this encounter (statuses as of 09/29/2019) Immunizations Name Administration Dates Next Due Influenza [...] filedocumented in this encounter Progress Notes * Zoila Rodas AGNP - 09/27/2019 4:00 PM CDT DATE OF SERVICE: 09/27/2019 Patient and were both present for the appointment and verbally consented to this visit. Televisit was completed via telephone (audio) per patient preference. Patient Location: Home Provider's Location: Home Office CHIEF COMPLAINT: Follow-Up for HTN and "Bladder [...] Tuberculosis. who presents for routine follow-u p. 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 Denies need to go to ED. Denies chest pain, palpitations, dizziness, syncope, presyncope, or peripheral edema. Denies flank pain, dysuria, hematuria, slow stream, feeling of not emptying bladder, foul-smelling urine, and/or foamy/frothy urine. BP is well-controlled. She is recovering from infection s/p loop recorder implantation. MEDICATIONS: Current Outpatient Medications on File Prior to Visit Medication Sig Dispense Refill SERTraline 100 mg tablet Take 1 tablet [...] propionate 50 mcg/actuation nasal spray Use 1 [place] in each nost ril 2 (two) times [...] every morning. 3 No current facility-administered medications on file prior to visit. PHYSICAL EXAMINATION: Physical Exam is Limited by Televisit. BP 137/78 per home cuff GENERAL: Patient is awake, alert, oriented, and cooperative. CHEST: No audible difficulty breathing. NEURO: Mood appropriate. No non-epileptic seizures during this visit. LABORATORY DATA: BMP NA (mmol/L) Date Value 09/04/2019 140 K (mmol/L) Date Value 09/04/2019 3.3 (L) CALCIUM (mg/dL) Date Value 09/04/2019 9.3 CL (mmol/L) Date Value 09/04/2019 99 BUN (mg/dL) Date Value 09/04/2019 17 CREATININE (mg/dL) Date Value 09/04/2019 0.65 GLUCOSE (mg/dL) Date Value 09/04/2019 113 (H) CO2 TOTAL (mmol/L) Date Value 09/04/2019 28 ASSESSMENT/PLAN: Calcium oxalate crystals in urine (primary encounter diagnosis) Comment: Patient has history calcium oxalate that are currently resolved per uri nalysis. Repeat CTAP (10/18/2018) showed no hydronephrosis, stones, or masses. Serum creatinine stable and WNL. UA unremarkable. Plan: Continue HCTZ 25mg daily. Hypertension, unspecified type Comment: Home BP is 137/78. Plan: Continue HCTZ 25mg daily. She is not taking any additional antihypertensiv es. Keep home record BID twice weekly. Call office if BP is >150/90 or <100 systolic persistently. Hypokalemia Comment: K 3.3 Plan: Start KCl 10mEq daily. Repeat BMP in 4 weeks. 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 Plan: Continue to follow neurology. FOLLOW-UP: ANNUALLY and PRN if labs remain stable in 4 weeks. VISIT TIME: 15 MINUTES Zoila Rodas, DNP, TECHNICAL OPERATIONS VICE PRESIDENT, AGPCNP-BC Nurse Practitioner Division of Nephrology & Hypertension 4.200 [facility] O [phone] F [phone] M [phone] E [email or web address] documented in this encounter Plan of Treatment Care Team Description Date Type Specialty Eleno Mcnamara MD [address] [place] [address] [phone] 10/20/2019 Telemedicine Obstetrics & Gyneco logy Visit Kashif Cee MD [address] [place] [address] [phone] 10/26/2019 Telemedicine Neurology Visit Beth Marquez MD [address] [place] [address] [phone] 10/26/2019 Telemedicine Psychiatry Visit Marvin Oconnor MD [address] [place] [address] Dr. [place] [place], [place] [phone] 11/09/2019 Telemedicine Internal Medicine Visit Sukh Harris MD [address] [place] [address] [id number] [place], [place] 411505 11/23/2019 Office Visit Pain Medicine Dieter Zhou MD [address] [place] [address] [id number] [place], [place] 357685 01/03/2020 Office Visit Pulmonary Disease Order Schedule Name Type Priority Associated Diag noses Expected: 09/27/2019, Expires: 1 BASIC METABOLIC PANEL LAB Routine Hypokale alexandr Health Maintenance Due Date Last Done Comments [...] filedocumented in this encounter Visit Diagnoses Diagnosis Hypokalemia - Primary Hypopotassemia Essential hypertension Unspecified essential hypertension Calcium oxalate crystals in urine Other nonspecific finding on examinatio n of urine documented in this encounter Insurance Type Payer Benefit Subscriber ID Effective Phone Address Plan / Dates Group [facility] [id number] 2019-P [address] [facility] [id number] [place] [address] n christine (Home) [place] [address] documented as of this encounter
--- OUTSIDE RECORDS SUMMARY | 2019-11-09 10:11 | XMS REPORT | Summary of Care ---
Author Author [facility] - Health Organization [facility] - Health Address Unknown Phone Unavailable Care Team Providers Care Mental Health Tech Name Role Phone Fabien Fernandes MD Unavailable Marvin Oconnor MD PCP Cady Team 25 Unavailable Encounter Details Care Team Description Date Type Department Marvin Oconnor MD [address] [place] [address] 10/23/2019 Patient Secure [facility] [address] [place] [address] Allergies Comments Active Allergy Reactions Severity Noted Date Azithromycin Itching 01/07/2019 Ciprofloxacin Rash 01/27/2018 Clindamycin Other - See Medium 10/05/2016 comments, Itching Clonazepam Itching, Medium 11/23/2017 Rash, Swelling All steroids-muscle weakness Corticosteroids Other - See 01/20/2016 (Glucocorticoids) comments Doxycycline Rash Low 08/21/2019 Iodine Rash 10/05/2016 "swelling internally" per patient Cephalexin Itching, Rash 08/18/2019 Lincomycin Rash Medium 09/15/2017 Nitrofurantoin Rash 01/27/2018 Other [place]-3s Anaphylaxis 01/27/2018 States it would be fatal Penicillins Other - See High 01/20/2016 comments, Shortness of Breath Shellfish Derived Other - See 03/18/2019 comments BActrim Rash Sulfamethizole Rash 07/05/2019 New string of tetanus- went to ER , medication for throat closing up Tetanus Vaccines And Swelling High 6 Toxoid documented as of this encounter (statuses as of 10/24/2019) Medications End Date Status Medication Sig Dispensed [...] needed. 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 Date Recorded COVID-19 Exposure Response 10/23/2019 4:44 PM CDT In the last month, have you been in contact with No / Unsure someone who was confirmed or suspected to have Coronavirus / COVID-19? documented as of this encounter Last Filed Vital Signs Not on filedocumented in this encounter Plan of Treatment Care Team Description Date Type Specialty Marvin Oconnor MD [address] Casanova [address] [place] [address] [phone] 10/25/2019 Appointment Radiology Marvin Oconnor MD [address] Casanova [address] [place] [address] 10/25/2019 Appointment Radiology Marvin Oconnor MD [address] Casanova [address] [place] [address] [phone] 10/25/2019 Appointment Radiology Kashif Cee MD [address] [place] [phone] 10/26/2019 Telemedicine Neurology Visit Jamison Blank MD [address] [place] [address] Beth Marquez MD [address] [place] [address] [phone] 10/26/2019 Telemedicine Psychiatry Visit Marvin Oconnor MD [address] Casanova [address] [place] [address] [phone] 11/09/2019 Telemedicine Internal Medicine Visit Sukh Harris MD [address] [id number] [place] [address] [phone] 11/23/2019 Office Visit Pain Medicine Dieter Zhou MD [address] [id number] [place], [place] [phone] 01/03/2020 Office Visit Pulmonary Disease Marvin Oconnor MD [address] Casanova [address] [place] [address] [phone] 01/09/2020 Appointment Radiology Marvin Oconnor MD [address] [place] [place], [place] 4996[address] 01/09/2020 Appointment Radiology Health Maintenance Due Date [...] Phone Address Plan / Dates Group O [facility] [id number] 2019-P [address] [facility] [address] [place] [address] documented as of this encounter
--- OUTSIDE RECORDS SUMMARY | 2019-11-09 10:11 | XMS REPORT | Summary of Care ---
Author Author [facility] - Health Organization [facility] - Health Address Unknown Phone Unavailable Care Team Providers Care Planning Consultant Name Role Phone Fabien Fernandes MD Unavailable Marvin Oconnor MD PCP Cady Team 25 Unavailable Reason for Visit * Reason Comments Follow-up Encounter Details Care Team Description Date Type Department Eleno Mcnamara MD [address] [place] [id number] Vaginal atrophy (Primary Dx) 10/20/2019 Telemedicine [facility]- [address] [place] [address] Allergies Comments Active Allergy Reactions Severity Noted Date Azithromycin Itching 01/07/2019 Ciprofloxacin Rash 01/27/2018 Clindamycin Other - See Medium 10/05/2016 comments, Itching Clonazepam Itching, Medium 11/23/2017 Rash, Swelling All steroids-muscle weakness Corticosteroids Other - See 01/20/2016 (Glucocorticoids) comments Doxycycline Rash Low 08/21/2019 Iodine Rash 10/05/2016 "swelling internally" per patient Cephalexin Itching, Rash 08/18/2019 Lincomycin Rash Medium 09/15/2017 Nitrofurantoin Rash 01/27/2018 Other [place]-3s Anaphylaxis 01/27/2018 States it would be fatal Penicillins Other - See High 01/20/2016 comments, Shortness of Breath Shellfish Derived Other - See 03/18/2019 comments BActrim Rash Sulfamethizole Rash 07/05/2019 New string of tetanus- went to ER , medication for throat closing up Tetanus Vaccines And Swelling High 6 Toxoid documented as of this encounter (statuses as of 10/20/2019) Medications End Date Status Medication Sig Dispensed [...] needed. 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 01/12/2019 Overview: Added automatically from request for josé luis silvestre [id number] Obesity (BMI 30-39.9) 12/16/2018 Recurrent UTI 05/17/2018 [...] as of this encounter (statuses as of 10/20/2019) Resolved Problems Problem Noted Date Resolved Date Spondylosis of lumbar region without myelopathy or radiculo johanna 01/12/2019 01/16/2019 Overview: Added automatically from request for josé luis silvestre [id number] documented as of this encounter (statuses as of 10/20/2019) Immunizations Name Administration Dates Next Due Influenza [...] filedocumented in this encounter Progress Notes * Eleno Mcnamara MD - 10/20/2019 1:30 PM CDT TELEHEALTH NOTE Verbal consent obtained from Patient: John Nieto due to the COVID-19 pandemic for telehealth services provided below. Communication with patient was conducted via Telephone due to patient unable to obtain video call option. Location of Patient: Home Location of Provider: Home Date of Service: 10/20/2019 Chief Complaint: Estring follow up HPI: John Nieto is a 64 year old female with vaginal atrophy and recurrent UT Is. Patient tried the estring but it was too uncomfortable and she had to remove it. She has not had as many episodes of bladder discomfort in the past few desiree hs and is open to trying vaignal estrogen cream instead of reinserting the ring. No other complaints. Past Medical History: Diagnosis Date Depression Frequent falls Hyperlipidemia Hypertension IBS (irritable bowel syndrome) Low back pain Osteoporosis b/l hip Seizure (nonepileptic psychogenic) MEDICATIONS: Current Outpatient Medications Medication Sig Dispense Refill conjugated estrogens (PREMARIN) 0.625 mg/gram vaginal cream Insert 0.5 g int o vagina at bedtime. 30 g 2 hydroCHLOROthiazide 25 mg tablet Take 1 tablet by mouth daily. 90 tablet 3 KCL 10 mEq tablet Take 1 tablet [...] propionate 50 mcg/actuation nasal spray Use 1 Apison in each nost ril 2 (two) times daily. 16 g 0 cannabidiol, CBD, (CANNABIDIOL ORAL) Take by mouth 3 (three) times daily as needed. gabapentin 400 mg capsule TAKE 1 CAPSULE BY MOUTH THREE TIMES A DAY 90 capsu le 2 montelukast 10 mg tablet Take 10 mg by mouth. dicyclomine 20 mg tablet Take 20 mg by mouth 4 (four) times daily. omeprazole 40 mg capsule 40 mg 2 (two) times daily. 3 cetirizine 10 mg tablet Take 10 mg by mouth every morning. 3 No current facility-administered medications for this visit. ROS ROS: General: No headache, nausea, fever, chills CV: No chest pain, palpitations. Pul: No shortness of breath. AB: No abdominal pain, constipation, diarrhea. TELEHEALTH EXAM General: NAD. AAOx3. Pul: Normal respirations. Psychiatric: Normal mood, speech. ASSESSMENT/ PLAN John Nieto is a 64 year old female with PMH as above presenting with: 1. Vaginal atrophy Start vaginal estrogen, twice weekly. No other intervention needed at this time. - conjugated estrogens (PREMARIN) 0.625 mg/gram vaginal cream; Insert 0.5 g into vagina at bedtime. Dispense: 30 g; Refill: 2 Follow up PRN After visit summary (AVS ) documentation will be available through [facility] for t his encounter. A total of 15 minutes was spent on the Telephone due to patient unable to obtain video call option. Eleno Mcnamara MD documented in this encounter Plan of Treatment Care Team Description Date Type Specialty Kashif Cee MD [address] [place] [address]. [place] [phone] 10/26/2019 Telemedicine Neurology Visit Jamison Blank MD [address] [place] [address] [id number] Beth Marquez MD [address] [place] [address]. [place] [phone] 10/26/2019 Telemedicine Psychiatry Visit Marvin Oconnor MD [address] [place] [address] [place] [address] [id number] 11/09/2019 Telemedicine Internal Medicine Visit Sukh Harris MD [address] [facility] [id number] [place], [place] [phone] 11/23/2019 Office Visit Pain Medicine Dieter Zhou MD [address] [facility] [id number] [place], [place] [phone] 01/03/2020 Office Visit Pulmonary Disease Marvin Oconnor MD [address] [place] [address] [place] [address] [phone] 01/09/2020 Appointment Radiology Marvin Oconnor MD [address] [place] [address] [place] [address] [phone] 01/09/2020 Appointment Radiology Health Maintenance Due Date [...] filedocumented in this encounter Visit Diagnoses Diagnosis Vaginal atrophy - Primary Postmenopausal atrophic vaginitis documented in this encounter Insurance Type Payer Benefit Subscriber ID Effective Phone Address Plan / Dates Group [facility] [id number] 2019-P [address] [facility] [id number] [place] [address] documented as of this encounter
--- OUTSIDE RECORDS SUMMARY | 2019-11-09 10:11 | XMS REPORT | Summary of Care ---
Author Author [facility] - Health Organization [facility] - Health Address Unknown Phone Unavailable Care Team Providers Care Stem Frazer Name Role Phone Fabien Fernandes MD Unavailable Marvin Oconnor MD PCP Ulysses Lazar 25 Unavailable Reason for Visit * Reason Comments Rx Concern/Question Encounter Details Care Team Description Date Type Department Zoila Rodas AGNP [address] [place] [address] Rx Concern/Question 09/28/2019 Telephone [facility] [address] [place] [address] Allergies Comments Active Allergy Reactions Severity Noted Date Azithromycin Itching 01/07/2019 Ciprofloxacin Rash 01/27/2018 Clindamycin Other - See Medium 10/05/2016 comments, Itching Clonazepam Itching, Medium 11/23/2017 Rash, Swelling All steroids-muscle weakness Corticosteroids Other - See 01/20/2016 (Glucocorticoids) comments Doxycycline Rash Low 08/21/2019 Iodine Rash 10/05/2016 "swelling internally" per patient Cephalexin Itching, Rash 08/18/2019 Lincomycin Rash Medium 09/15/2017 Nitrofurantoin Rash 01/27/2018 Other [place]-3s Anaphylaxis 01/27/2018 States it would be fatal Penicillins Other - See High 01/20/2016 comments, Shortness of Breath Shellfish Derived Other - See 03/18/2019 comments BActrim Rash Sulfamethizole Rash 07/05/2019 New string of tetanus- went to ER , medication for throat closing up Tetanus Vaccines And Swelling High 6 Toxoid documented as of this encounter (statuses as of 10/03/2019) Medications End Date Status Medication Sig Dispensed [...] needed. 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 01/12/2019 Overview: Added automatically from request for ordonez rgery [id number] Obesity (BMI 30-39.9) 12/16/2018 Recurrent UTI 05/17/2018 [...] as of this encounter (statuses as of 10/03/2019) Resolved Problems Problem Noted Date Resolved Date Spondylosis of lumbar region without myelopathy or radiculo johanna 01/12/2019 01/16/2019 Overview: Added automatically from request for ordonez rgery [id number] documented as of this encounter (statuses as of 10/03/2019) Immunizations Name Administration Dates Next Due Influenza [...] Description Date Type Specialty Eleno Mcnamara MD [address] [place] [address] [phone] 10/20/2019 Telemedicine Obstetrics & Gyneco logy Visit Kashif Cee MD [address] [place] [phone] 10/26/2019 Telemedicine Neurology Visit Beth Marquez MD [address] [place] [phone] 10/26/2019 Telemedicine Psychiatry Visit Marvin Oconnor MD [address] [place] [address] Dr. [place], [place] [phone] 11/09/2019 Telemedicine Internal Medicine Visit Sukh Harris MD [address] [facility] [id number] [place], [place] [address] 11/23/2019 Office Visit Pain Medicine Dieter Zhou MD [address] [facility] [id number] [place], [place] [phone] 01/03/2020 Office Visit Pulmonary Disease Health Maintenance [...] Phone Address Plan / Dates Group [facility] [id number] 2019-P [address] [facility] [id number] [place] [address] documented as of this encounter
--- OUTSIDE RECORDS SUMMARY | 2019-11-09 10:11 | XMS REPORT | Clinical Summary ---
Author Author [facility] - Health Organization [facility] - Health Address Unknown Phone Unavailable Care Team Providers Care Top Coater Name Role Phone Fabien Fernandes MD Unavailable [...] Medium 09/15/2017 Nitrofurantoin Rash 01/27/2018 Other [place]-3s Anaphylaxis 01/27/2018 States it would be fatal [...] needed. 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 09/18/2019 Telephone Cardiology Boom Santiago MD [...] Boom Santiago MD Appointment 08/17/2019 Telephone Cardiac National Insurance Officer Marvin Oconnor MD Lab Results 08/17/2019 Telephone Internal [place] Viral URI with cough (Primary Dx); Goiter; Mesenteric panniculitis; Breast cancer screening by mammogram 08/16/2019 Office Visit Internal Medicine Doctor Unassigned, [place] 08/15/2019 Orders Only Boom Santiago MD Orders [...] Telephone Internal Medicine Dieter Zhou MD Test, [facility] Pulmonary Function Dyspnea on exertion 07/28/2019 Manager Home Healthcare Pulmonary Function Visit Technologist Doctor Unassigned, [place] 07/28/2019 Orders Only Marvin Oconnor MD Results 07/27/2019 Telephone Internal [place] Pcp-Lab Osteoporosis without current pathologica l fracture, unspecified osteoporosis type; Dysuria 07/26/2019 [facility] Phlebotomy Visit Marvin Oconnor MD Osteoporosis without current pathologica l fracture, unspecified osteoporosis type (Primary Dx); Dysuria; Need for shingles vaccine; Chronic pain of right ankle 07/26/2019 Office Visit Internal Medicine Boom Santiago MD Palpitations (Primary Dx) 07/20/2019 Office Visit Cardiology Doctor Unassigned, [place] 07/17/2019 Orders Only Marvin Oconnor MD Results [...] Care Team Description Date Type Specialty Eleno cMnamara MD [address] [place] [address] [id number] 10/20/2019 Telemedicine Obstetrics & Gyneco logy Visit Kashif Cee MD [address] [place] [address]. [place] [phone] 10/26/2019 Telemedicine Neurology Visit Marvin Oconnor MD [address] [place] [address] [place] [address] [phone] 11/09/2019 Telemedicine Internal Medicine Visit Sukh Harris MD [address] [place] [address] [id number] [place], [place] [phone] 11/23/2019 Office Visit Pain Medicine Dieter Zhou MD [address] [place] [address] [id number] [place], [place] [phone] 01/03/2020 Office Visit Pulmonary Disease Marvin Oconnor MD [address] [place] [address] [place] [address] [phone] 01/09/2020 Appointment Radiology Marvin Oconnor MD [address] [place] [address] [place] [address] [phone] 01/09/2020 Appointment Radiology Health Maintenance Due Date [...] Routine 09/05/2019 10:50 AM CDT LIPID PANEL (20737)(TOTAL Routine 09/05/2019 CHOLESTEROL, 4:26 AM CDT TRIGLYCERIDES, [...] HEPATIC FUNCTION PANEL STAT 09/04/2019 Seizure s (00920) (ALB,T.PRO,BILI 7:39 AM CDT T,BU/BC,ALT,AST,ALK PHOS) BASIC [...] Routine 08/18/2019 Psychog enic nonepileptic 12:00 PM RIG MANAGER seizure NOTICE OF PRIVACY Routine 08/18/2019 PRACTICES 10:37 AM RIG MANAGER CONSENT/REFUSAL FOR Routine 08/18/2019 DIAGNOSIS AND TREATMENT 10:36 AM RIG MANAGER ASSIGNMENT OF BENEFITS Routine 08/18/2019 10:35 AM RIG MANAGER EP PROCEDURES Routine 08/18/2019 12:01 AM RIG MANAGER POCT FLU A AND B Routine 08/16/2019 Viral URI wit h cough (MOLECULAR) AUTHORIZATION FOR RELEASE Routine 08/15/2019 OF PHI 12:01 AM RIG MANAGER THYROID STIMULATING STAT 08/13/2019 Goiter HORMONE 9:02 PM RIG MANAGER CBC WITH DIFFERENTIAL STAT 08/13/2019 Lower ab dominal pain 9:02 PM RIG MANAGER TROPONIN I STAT 08/13/2019 Lower abdominal pain 9:02 PM RIG MANAGER LIPASE STAT 08/13/2019 Lower abdominal pain 9:02 PM RIG MANAGER HEPATIC FUNCTION PANEL STAT 08/13/2019 Lower a bdominal pain (43786) (ALB,T.PRO,BILI 9:02 PM RIG MANAGER T,BU/BC,ALT,AST,ALK PHOS) BASIC METABOLIC PANEL STAT 08/13/2019 Lower ab dominal pain (NA, K, CL, CO2, GLUCOSE, 9:02 PM RIG MANAGER BUN, CREATININE, CA) CBC WITH DIFFERENTIAL Routine 08/13/2019 Lower ab dominal pain 9:[address] ABDOMEN PELVIS WO STAT 08/13/2019 Lower abd ominal pain CONTRAST 8:19 PM RIG MANAGER XR CHEST 1 VW STAT 08/13/2019 Lower abdominal pain 8:12 PM RIG MANAGER URINALYSIS STAT 08/13/2019 Lower abdominal pain 7:56 PM RIG MANAGER EKG-12 LEAD Routine 08/13/2019 7:52 PM RIG MANAGER EKG-12 LEAD STAT 08/13/2019 7:48 PM RIG MANAGER EKG-12 LEAD Routine 08/13/2019 6:37 PM RIG MANAGER EMERGENCY SERVICES Routine 08/13/2019 AGREEMENTS AND 12:01 AM RIG MANAGER AUTHORIZATIONS XR ANKLE 3+ VW RIGHT Routine 08/07/2019 Right mike t pain 1:50 PM RIG MANAGER XR FOOT 3+ VW RIGHT Routine 08/07/2019 Right mike t pain 1:50 PM RIG MANAGER EXTERNAL PROVIDER RECORDS Routine 08/04/2019 12:01 AM RIG MANAGER PULMONARY FUNCTION TEST Routine 07/28/2019 (RESULTS) 10:43 AM RIG MANAGER EXTERNAL PROVIDER RECORDS Routine 07/28/2019 12:01 AM RIG MANAGER EXTERNAL PROVIDER RECORDS Routine 07/28/2019 12:01 AM RIG MANAGER URINALYSIS Routine 07/26/2019 Dysuria 4:25 PM RIG MANAGER VITAMIN D, 25-OH Routine 07/26/2019 Osteoporosis without 4:25 PM RIG MANAGER current pathological fracture, unspecified osteoporosis type VARICELLA-ZOSTER VACCINE, Routine 07/26/2019 Need for shingles vaccine (SHINGRIX) 50 MCG/0.5 ML, 3:58 PM RIG MANAGER IM EKG-12 LEAD Routine 07/20/2019 11:23 AM RIG MANAGER EXTERNAL PROVIDER RECORDS Routine 07/17/2019 12:01 AM RIG MANAGER from Last 3 Months Results * CORONARY ANGIOGRAPHY (09/05/2019 10:50 AM CDT) Specimen Performing Organization Address City/[facility] Ph one Number CATH * Lipid Panel (Total Cholesterol, Triglycerides, HDL) - Fasting (09/05/2019 4:26 AM CDT) CHOL 254 (H) 120 - 200 mg/dL [facility] HDL 38 (L) >50 mg/dL [facility] HDLC RATIO 6.7 (H) <=4.5 [facility] TRIG 285 (H) 30 - 170 mg/dL [facility] LDL CHOL 159 <=160 mg/dL [facility] VLDL 57 5 - 60 mg/dL [facility] Specimen Blood - VENOUS Performing Organization Address City/[facility] Ph one Number [facility] CLIA: [id number], [address] [place], [place] [address] [facility] * Urinalysis (09/04/2019 9:13 AM CDT) Only the most recent of 3 results within the time period is included. APPEARANCE Cloudy (A) Clear [facility] COLOR Yellow Yellow [facility] PH 6.0 4.8 - 8.0 [facility] SP GRAVITY 1.009 1.003 - 1.030 [facility] GLU U QUAL Normal Normal [facility] BLOOD Negative Negative [facility] KETONES Negative Negative [facility] PROTEIN Negative Negative [facility] UROBILIN Normal Normal [facility] BILIRUBIN Negative Negative [facility] NITRITE Negative Negative [facility] LEUK MICHAEL 250/uL (A) Negative [facility] RBC/HPF 0 0 - 3 HPF [facility] WBC/HPF 4 0 - 5 HPF [facility] BACTERIA Few (A) Negative [facility] MUCOUS Slight (A) Negative LPF [facility] SQ EPITH 2 <=2 HPF [facility] Specimen Urine - URINE, CLEAN CATCH Performing Organization Address [facility] one Number [facility] CLIA: [id number], [address] [place] [address] [facility] * Drug Screen ER (09/04/2019 9:13 AM CDT) AMPHET Negative Negative [facility] Cocaine Negative Negative [facility] Metabolite [facility] OPIATES Negative Negative [facility] THC Negative Negative [facility] Specimen Urine - URINE, CLEAN CATCH Narrative Performed At Urine Drug Cutoff Ranges [facility] Amphetamine: 1,000 ng/mL [facility] Cocaine: 150 ng/mL [facility] Opiates: 300 ng/mL Cannabinoids: 50 ng/mL The results are to be used only for med ical (i.e., treatment) purposes. Unconfirmed screening results must not be used for non-medical purposes (e.g., employment testing, legal testing). Performing Organization Address [facility] one Number [facility] CLIA: [id number], [address] [place] [address] [facility] * Chest 1 View (09/04/2019 8:09 [...] 7:50 AM CDT) Specimen Performing Organization Address City/[facility] Ph one Number HST * Lactic Acid Whole Blood (09/04/2019 7:44 AM CDT) LACTIC ACID 1.90 0.50 - 2.20 mmol/L [facility] DAPHNE GARCIA [facility] Specimen Blood - VENOUS Performing Organization Address [facility] Ph one Number [facility] CLIA: [id number], [address] [place], [place] [address] [facility] * BLOOD CULTURE SCREEN (09/04/2019 7:43 AM CDT) Only the most recent of 2 results within the time period is included. Blood No organisms isolated No growth [facility] Culture-Aerobic Comment: [facility] Previous preliminary verified [facility] result was Culture In Progress on 09/04/2019 at 1601 CDT Previous preliminary verified result was No growth at 24 hours on 09/05/2019 at 1301 CDT Previous preliminary verified result was No growth at 48 hours on 09/06/2019 at 1301 CDT Previous preliminary verified result was No growth at 72 hours on 09/07/2019 at 1301 CDT Blood No organisms isolated No growth [facility] Culture-Anaerob Comment: [facility] Previous preliminary verified [facility] MPUS result was Culture In Progress on 09/04/2019 at 1601 CDT Previous preliminary verified result was No growth at 24 hours on 09/05/2019 at 1301 CDT Previous preliminary verified result was No growth at 48 hours on 09/06/2019 at 1301 CDT Previous preliminary verified result was No growth at 72 hours on 09/07/2019 at 1301 CDT Specimen Blood - VENOUS Performing Organization Address [facility] Ph one Number [facility] CLIA: [id number], [address] [place], [place] [address] [facility] * CBC WITH DIFFERENTIAL (09/04/2019 7:39 AM CDT) Only the most recent of 2 results within the time period is included. WBC 5.87 4.30 - 11.10 [facility] 10*3/L [facility] RBC 4.98 3.93 - 5.25 10*6/L [facility] HGB 14.0 11.6 - 15.0 g/dL [facility] RY [facility] HCT 41.9 35.7 - 45.2 % [facility] MCV 84.1 80.6 - 95.5 fL [facility] MCH 28.1 25.9 - 32.8 pg [facility] MCHC 33.4 31.6 - 35.1 g/dL [facility] RDW-SD 39.8 39.0 - 49.9 fL [facility] RDW-CV 13.1 12.0 - 15.5 % [facility] PLT 186 166 - 358 10*3/L [facility] MPV 10.8 9.5 - 12.9 fL [facility] NRBC/100 WBC 0.0 0.0 - 10.0 /100 WBCs [facility] NRBC x10^3 <0.01 10*3/L [facility] GRAN MAT (NEUT) 55.1 % [facility] Y % [facility] IMM GRAN % 0.30 % [facility] LYMPH % 32.9 % [facility] MONO % 9.2 % [facility] EOS % 2.0 % [facility] BASO % 0.5 % [facility] GRAN MAT 3.23 1.88 - 7.09 10*3/uL [facility] x10^3(ANC) [facility] IMM GRAN x10^3 <0.03 0.00 - 0.06 10*3/uL [facility] LYMPH x10^3 1.93 1.32 - 3.29 10*3/uL [facility] MONO x10^3 0.54 0.33 - 0.92 10*3/uL [facility] LABOR [facility] DORALY [facility] EOS x10^3 0.12 0.03 - 0.39 10*3/uL [facility] LABOR ATORY [facility] BASO x10^3 0.03 0.01 - 0.07 10*3/uL [facility] LABOR [facility] Specimen Blood - VENOUS Performing Organization Address [facility] one Number [facility] CLIA: [id number], [address] [place] [address] [facility] * N-TERMINAL PRO-BNP (09/04/2019 7:39 AM CDT) NT-proBNP 24 <=125 pg/mL [facility] Specimen Blood - VENOUS Narrative Performed At [facility] has been reported to cause a neg ative bias, interpret results relative to [facility] patient's use of biotin. [facility] Performing Organization Address City/[facility] one Number [facility] CLIA: [id number], [address] [place] [address] [facility] * aPTT (09/04/2019 7:39 AM CDT) APTT Patient 33 26 - 36 Seconds [facility] LABORATOR Y [facility] Specimen Blood - VENOUS Performing Organization Address [facility] one Number [facility] CLIA: [id number], [address] [place] [address] [facility] * Prothrombin Time (PT) / INR (09/04/2019 7:39 AM CDT) Only the most recent of 2 results within the time period is included. PROTIME PATIENT 11.1 10.1 - 12.6 Seconds [facility] LABO RATORY [facility] INR 1.0Comment: Normal INR <1.1; [facility]ORY Warfarin Therapeutic range 2.0 [facility] to 3.0 or 2.5 to 3.5, [facility] depending upon the indications. Specimen Blood - VENOUS Performing Organization Address [facility] one Number [facility] CLIA: [id number], [address] [place], [place] [address] [facility] * Glycosylated Hemoglobin (A1C) (09/04/2019 7:39 AM CDT) HGB A1C 6.2 (H) 4.0 - 6.0 % NGSP [facility] Specimen Blood - VENOUS Performing Organization Address [facility] one Number [facility] CLIA: [id number], [address] [place], [place] [address] [facility] * Ethanol Level (09/04/2019 7:39 AM CDT) ALCOHOL <10 mg/dL [facility] Specimen Blood - VENOUS Narrative Performed At Toxic Greater than or equal to 80 mg/dL. [facility] TORY NOTE: Whole blood values are approximately 10% to 15% lower than serum and [facility] plasma. CAMPUS Performing Organization Address [facility] one Number [facility] CLIA: [id number], [address] [place] [phone] 98 [facility] * Basic Metabolic Panel (NA, K, CL, CO2, GLUCOSE, BUN, CREATININE, CA) (09/04/2019 7:39 AM CDT) Only the most recent of 2 results within the time period is included. NA 140 135 - 145 mmol/L [facility] K 3.3 (L) 3.5 - 5.0 mmol/L [facility] CL 99 98 - 108 mmol/L [facility] LABORATOR Y [facility] CO2 TOTAL 28 23 - 31 mmol/L [facility] AGAP 13 2 - 16 [facility] BUN 17 7 - 23 mg/dL [facility] GLUCOSE 113 (H) 70 - 110 mg/dL [facility] CREATININE 0.65 0.50 - 1.04 mg/dL [facility] LABORAT ORY SERVICES-CLEAR [facility] CALCIUM 9.3 8.6 - 10.6 mg/dL [facility] LABORATO RY SERVICES-CLEAR [facility] eGFR 92.1 mL/min/1.73m2 [facility] Calculation SERVICES-CLEAR (Non-[facility] [place]) eGFR 111.6 mL/min/1.73m2 [facility] Calculation SERVICES-CLEAR ([facility]) Specimen Blood - VENOUS Narrative Performed At [facility] Glomerular Filtration Rate (GFR) and S taging of Kidney Disease* [facility] + + +------ + [facility] | GFR (mL/min/1.73 m2) | With Kidney Damage | [facility] Kidney Damage [facility] + + -------+ + | >90 | [...] Performing Organization Address City/State/Zipcode Ph one Number [facility] CLIA: [id number], [address] [place] [phone] 98 [facility] * Hepatic Function Panel (ALB, T.PRO, BILI T, BU/BC, ALT, AST, ALK PHOS) (09/04/2019 7:39 AM CDT) Only the most recent of 2 results within the time period is included. TOTAL BILI 0.3 0.1 - 1.1 mg/dL [facility] LABORATOR [facility] BILI UNCON 0.3 0.1 - 1.1 mg/dL [facility] BILI CONJ 0.0 0.0 - 0.3 mg/dL [facility] T PROTEIN 7.1 6.3 - 8.2 g/dL [facility] ALBUMIN 4.4 3.5 - 5.0 g/dL [facility] ALK PHOS 66 34 - 122 U/L [facility] ALTv 24 5 - 35 U/L [facility] AST(SGOT) 22 13 - 40 U/L [facility] Specimen Blood - VENOUS Performing Organization Address [facility] one Number [facility] CLIA: [id number], [address] [place] [address] [facility] * Troponin I (09/04/2019 7:39 AM CDT) Only the most recent of 2 results within the time period is included. TROPONIN I <0.012 <=0.034 ng/mL [facility] Specimen Blood - VENOUS Narrative Performed At Equal or Less than 0.034 ng/ml---Normal [facility] Note: Cardiac troponin begins to rise 3-4 hours after the onset of ischemia. [facility] Repeat in 4-6 hours if the sample was d rawn within 3-4 hours of the onset of the [facility] symptom and found normal. Between 0.035 and [...] patient's use of biotin. Performing Organization Address [facility] one Number [facility] CLIA: [id number], [address] [place] [address] [facility] * CONSENT/REFUSAL FOR DIAGNOSIS AND TREATMENT (09/04/2019 7:11 AM CDT) Only the most recent of 2 results within the time period is included. Specimen Performing Organization Address City/State/Zipcode Ph one Number HIM * HOSPITAL ADMISSION (09/04/2019 12:01 AM CDT) Specimen Performing Organization Address [facility] Ph one Number HIM * EXTERNAL PROVIDER RECORDS (09/04/2019 12:01 AM CDT) Only the most recent of 5 results within the time period is included. Specimen Performing Organization Address [facility]/State[facility] Ph one Number HIM * ILR DEVICE CHECK (08/29/2019 12:00 AM CDT) Specimen Performing Organization Address [facility] Ph one Number EP * NOTICE OF PRIVACY PRACTICES (08/18/2019 10:37 AM RIG MANAGER) Specimen Performing Organization Address [facility]/State[facility] Ph one Number HIM * ASSIGNMENT OF BENEFITS (08/18/2019 10:35 AM RIG MANAGER) Specimen Performing Organization Address [facility] Ph one Number HIM * EP PROCEDURES (08/18/2019 12:01 AM RIG MANAGER) Specimen Performing Organization Address [facility] Ph one Number HIM * POCT FLU A AND B (MOLECULAR) (08/16/2019) Pathologist [facility] POCT INFLUENZA Negative Negative - Negative A POCT INFLUENZA Negative Negative - Negative B Specimen Swab * AUTHORIZATION FOR RELEASE OF PHI (08/15/2019 12:01 AM RIG MANAGER) Specimen Performing Organization Address [facility] Ph one Number HIM * THYROID STIMULATING HORMONE (08/13/2019 9:02 PM RIG MANAGER) [facility] TSH 1.93Comment: Biotin has been 0.45 - 4.70 mIU/L [facility] reported to cause a negative SERVICES[facility] bias, interpret results [facility] relative to patient's use of biotin. Specimen Blood - VENOUS Performing Organization Address [facility] one Number [facility] CLIA: [id number], [address] [facility], [place] [address] [facility] * Lipase Serum (08/13/2019 9:02 PM RIG MANAGER) Pathologist [facility] LIPASE 205 0 - 220 U/L [facility] Specimen Blood - VENOUS Performing Organization Address [facility] Ph one Number [facility] CLIA: [id number], [address] [place], [place] [address] [facility] * CT Abdomen/Pelvis W/O Contrast (08/13/2019 8:19 PM RIG MANAGER) Specimen Impressions Performed At Findings suggest mesenteric [...] Results Inft User - 08/13/2019 9:04 PM RIG MANAGER EXAM: CT ABDOMEN AND PELVIS WITHOUT [...] no follow-up is recommended. Performing Organization Address [facility] [facility] Ph one Number PACS/VR/DOSE * EKG-12 LEAD (08/13/2019 7:52 PM RIG MANAGER) Specimen Performing Organization Address [facility] Ph one Number HST * EKG-12 LEAD (08/13/2019 6:37 PM RIG MANAGER) Specimen Performing Organization Address [facility] Ph one Number HST * EMERGENCY SERVICES AGREEMENTS AND AUTHORIZATIONS (08/13/2019 12:01 AM RIG MANAGER) Specimen Performing Organization Address [facility] Ph one Number HIM * XR FOOT 3+ VW RIGHT (08/07/2019 1:50 PM RIG MANAGER) Specimen Impressions Performed At No acute bony [...] Results Inft User - 08/07/2019 3:14 PM RIG MANAGER EXAM: XR FOOT 3+ VW RIGHT, EXAM: XR ANKLE 3+ VW RIGHT HISTORY: pain COMPARISON: 11/16/2017 FINDINGS: Imaging of the right foot and ankle was obtained. Osteopenia is noted. Joint spaces are maintained. Calcaneal enthesophytes are noted. Mild dorsal talonavicular osteophytosis is present. The ankle mortise is congruent. IMPRESSION No acute bony abnormality. Mild osteoarthrosis. Performing Organization Address [facility] one Number PACS/VR/DOSE * XR ANKLE 3+ VW RIGHT (08/07/2019 1:50 PM RIG MANAGER) Specimen Impressions Performed At No acute bony [...] The ankle mortise is congruent. Procedure Note [facility] [place], Radiant Results Inft User - 08/07/2019 3:14 PM RIG MANAGER EXAM: XR FOOT 3+ VW RIGHT, EXAM: XR ANKLE 3+ VW RIGHT HISTORY: pain COMPARISON: 11/16/2017 FINDINGS: Imaging of the right foot and ankle was obtained. Osteopenia is noted. Joint spaces are maintained. Calcaneal enthesophytes are noted. Mild dorsal talonavicular osteophytosis is present. The ankle mortise is congruent. IMPRESSION No acute bony abnormality. Mild osteoarthrosis. Performing Organization Address [facility] one Number PACS/VR/DOSE * PULMONARY FUNCTION TEST (RESULTS) (07/28/2019 10:43 AM RIG MANAGER) Specimen Performing Organization [facility] one Number PFT * VITAMIN D, 25-OH (07/26/2019 4:25 PM RIG MANAGER) VIT D 25OH 23 (L) 25 - 80 ng/mL [facility] Specimen Blood Narrative Performed At Deficiency: <20 ng/mL [facility] Insufficiency: 20-24 ng/mL SERVICES Optimal: 25-80 ng/mL Performing Organization [facility] one Number [facility] CLIA: [id number], [address] [place] [address] * EKG-12 LEAD (07/20/2019 11:23 AM RIG MANAGER) Specimen Performing Organization Address City/State/Zipcode Ph one Number HST from Last 3 Months Insurance Type Payer Benefit Subscriber ID Effective Phone Address Plan / Dates Group O [facility] [id number] 2019-P [address] [facility] [id number] [place] [address]
--- OUTSIDE RECORDS SUMMARY | 2019-11-09 10:12 | XMS REPORT | Summary of Care ---
Author Author [facility] - Health Organization [facility] - Health Address Unknown Phone Unavailable Care Team Providers Care Biomedical Electronics Technician Name Role Phone Fabien Fernandes MD Unavailable Marvin Oconnor MD PCP Cady Team 25 Unavailable Reason for Visit * Reason Comments Other spells Encounter Details Care Team Description Date Type Department Kashif Cee MD [address] [place] [phone] Psychogenic nonepileptic seizure (Primar y Dx); Obesity (BMI 30-39.9); Chronic pain disorder 10/26/2019 Telemedicine [facility] Neurolo gy- Visit [facility] [address] [facility] [place] [address] Allergies Comments Active Allergy Reactions Severity Noted Date Azithromycin Itching 01/07/2019 Ciprofloxacin Rash 01/27/2018 Clindamycin Other - See Medium 10/05/2016 comments, Itching Clonazepam Itching, Medium 11/23/2017 Rash, Swelling All steroids-muscle weakness Corticosteroids Other - See 01/20/2016 (Glucocorticoids) comments Doxycycline Rash Low 08/21/2019 Iodine Rash 10/05/2016 "swelling internally" per patient Cephalexin Itching, Rash 08/18/2019 Lincomycin Rash Medium 09/15/2017 Nitrofurantoin Rash 01/27/2018 Other [place]-3s Anaphylaxis 01/27/2018 States it would be fatal Penicillins Other - See High 01/20/2016 comments, Shortness of Breath Shellfish Derived Other - See 03/18/2019 comments BActrim Rash Sulfamethizole Rash 07/05/2019 New string of tetanus- went to ER , medication for throat closing up Tetanus Vaccines And Swelling High 6 Toxoid documented as of this encounter (statuses as of 11/01/2019) Medications End Date Status Medication Sig Dispensed [...] needed. Active fluticasone propionate 50 Use 1 [place] 16 g 0 mcg/actuation nasal in each [...] of chest wall (two) times daily. Active KCL 10 mEq tablet Take 1 tablet 30 tablet 0 by mouth 0 daily. Active hydroCHLOROthiazide 25 mg Take 1 tablet 90 tablet 3 tabletIndications: by mouth 0 Hypertension, unspecified daily. type Active conjugated estrogens Insert 0.5 g 30 g 2 (PREMARIN) 0.625 mg/gram into vagina 0 vaginal creamIndications: at bedtime. Vaginal atrophy 10/26/2019 Discontinued (Reorder) SERTraline 100 mg Take 1 tablet 30 tablet 1 tabletIndications: by mouth 0 Psychogenic nonepileptic daily. 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 01/12/2019 Overview: Added automatically from request for josé luis penaery [id number] Obesity (BMI 30-39.9) 12/16/2018 Recurrent UTI 05/17/2018 [...] as of this encounter (statuses as of 11/01/2019) Resolved Problems Problem Noted Date Resolved Date Spondylosis of lumbar region without myelopathy or radiculo johanna 01/12/2019 01/16/2019 Overview: Added automatically from request for josé luis penaery [id number] documented as of this encounter (statuses as of 11/01/2019) Immunizations Name Administration Dates Next Due Influenza [...] filedocumented in this encounter Progress Notes * Kashif Cee MD - 10/26/2019 10:00 AM CDT TELEHEALTH NOTE Verbal consent obtained from Patient: John Nieto due to the COVID-19 pandemic for telehealth services provided below. Communication with patient was conducted via Video Call. Location of Patient: Home Location of Provider: Clinic Date of Service: 10/26/2019 Chief Complaint: Pseudoseizures. HPI: John Nieto is a 64 year old female.Most of the conversation was conducte d with the , although the patient herself did also participate. I have se en her in the past, and she has pseudoseizures. She was being seen by physicians at [facility], and her said that they "threw their hands up". I did tell th em that anticonvulsant medications will not help people that have spells that ar e not actually due to brain abnormalities. She also has issues of significant ch ronic pain in various body locations, I had gone to the medications with the pat ient and her . I was asking about gabapentin, and this was utilized more for pain rather than as an anticonvulsant. She also has been taking Zoloft, and she uses CBD oil, this does help with anxiety. Past Medical History: Diagnosis Date Depression Frequent falls Hyperlipidemia Hypertension IBS (irritable bowel syndrome) Low back pain Osteoporosis b/l hip Seizure (nonepileptic psychogenic) Current Outpatient Medications on File Prior to Visit Medication Sig Dispense Refill SERTraline 100 mg tablet Take 1 tablet by mouth daily. 90 tablet 0 conjugated estrogens (PREMARIN) 0.625 mg/gram vaginal cream Insert 0.5 g int o vagina at bedtime. 30 g 2 hydroCHLOROthiazide 25 mg tablet Take 1 tablet by mouth daily. 90 tablet 3 KCL 10 mEq tablet Take 1 tablet by mouth daily. 30 tablet 0 cefUROXime 500 mg tablet Take 1 tablet [...] propionate 50 mcg/actuation nasal spray Use 1 [place] in each nost ril 2 (two) times [...] facility-administered medications on file prior to visit. TELEHEALTH EXAM Alert, oriented times 3. Intact speech hotel receptionist/expression. Eye movements obser reanna. No facial asymmetry Hearing intact to conversation. Arms/legs move symmetri hipolito. No UE/LE ataxia. No tremors. ASSESSMENT/ PLAN John Nieto is a 64 year old female with PMH as above presenting with: ICD-10-CM ICD-9-CM 1. Psychogenic nonepileptic seizure F44.5 300.11 2. Obesity (BMI 30-39.9) E66.9 278.00 3. Chronic pain disorder G89.4 338.4 I had recommended that the patient probably should see psychiatry, that I did no t think neurology was going to cure the spells because she does not actually hav e epilepsy. In terms of her chronic pain, that certainly can contribute to anxie ty which may in turn increase the incidences of her spells and so I have recomme nded a gradual increase of the gabapentin. This medication will be taken at a do ron of eventually 800 mg, 3 times per day. I did of course go over chronic type side effects that can be expected with this medication. If this can help her so me, I really think that the more proper provider for the patient is going to be psychiatry. I have not planned on any other follow-ups at this point, but if she needs continued provider support, then psychiatry would be the best option. Her had been asking about the prescription of CBD oil and I did tell him th at I was not a part of the state program that would allow me to prescribe this m edication. After visit summary (AVS ) documentation will be available through [employer] for t his encounter. A total of 25 minutes was spent on the Video call, chart review. Medication tr eatment options/Side effects discussed. Workup/Plan of care discussed. Kashif Cee MD documented in this encounter Plan of Treatment Care Team Description Date Type Specialty Marvin Oconnor MD [address] [place], [place] [phone] 11/09/2019 Telemedicine Internal Medicine Visit Sukh Harris MD [address] [facility] [id number] [place], [place] [address] 11/23/2019 Office Visit Pain Medicine Laurie Hull LPC [address] [place], [place] [address] 11/30/2019 Office Visit Psychiatry Dieter Zhou MD [address] [facility] [id number] [place] [address] [phone] 01/03/2020 Office Visit Pulmonary Disease Marvin Oconnor MD [address] [place], [place] [phone] 01/09/2020 Appointment Radiology Marvin Oconnor MD [address] [place], [place] [address] 01/09/2020 Appointment Radiology Beth Marquez MD [address] [place] [phone] 01/11/2020 Office Visit Psychiatry Health Maintenance Due Date Last Done Comments [...] Diagnosis Psychogenic nonepileptic seizure - Prim sushil Obesity (BMI 30-39.9) Obesity, unspecified Chronic pain disorder Chronic pain syndrome documented in this encounter Insurance Type Payer Benefit Subscriber ID Effective Phone Address Plan / Dates Group O [facility] [id number] 2019-P [address] [employer] [facility] [id number] [place] [address] documented as of this encounter
--- OUTSIDE RECORDS SUMMARY | 2019-11-09 10:12 | XMS REPORT | Summary of Care ---
Author Author [facility] - Health Organization [facility] - Health Address Unknown Phone Unavailable Care Team Providers Care Bank Teller Name Role Phone Fabien Fernandes MD Unavailable Marvin Oconnor MD PCP Cady Team 25 Unavailable Reason for Visit * Reason Comments Other spells Encounter Details Care Team Description Date Type Department Kashif Cee MD [address] [place] [phone] Psychogenic nonepileptic seizure (Primar y Dx); Obesity (BMI 30-39.9); Chronic pain disorder 10/26/2019 Telemedicine [facility]- Visit [facility] [address] [facility], 6th [place] [phone] Allergies Comments Active Allergy Reactions Severity Noted Date Azithromycin Itching 01/07/2019 Ciprofloxacin Rash 01/27/2018 Clindamycin Other - See Medium 10/05/2016 comments, Itching Clonazepam Itching, Medium 11/23/2017 Rash, Swelling All steroids-muscle weakness Corticosteroids Other - See 01/20/2016 (Glucocorticoids) comments Doxycycline Rash Low 08/21/2019 Iodine Rash 10/05/2016 "swelling internally" per patient Cephalexin Itching, Rash 08/18/2019 Lincomycin Rash Medium 09/15/2017 Nitrofurantoin Rash 01/27/2018 Other [place]-3s Anaphylaxis 01/27/2018 States it would be fatal Penicillins Other - See High 01/20/2016 comments, Shortness of Breath Shellfish Derived Other - See 03/18/2019 comments BActrim Rash Sulfamethizole Rash 07/05/2019 New string of tetanus- went to ER , medication for throat closing up Tetanus Vaccines And Swelling High 6 Toxoid documented as of this encounter (statuses as of 10/31/2019) Medications End Date Status Medication Sig Dispensed [...] needed. 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 01/12/2019 Overview: Added automatically from request for josé luis penaery [id number] Obesity (BMI 30-39.9) 12/16/2018 Recurrent UTI 05/17/2018 [...] as of this encounter (statuses as of 10/31/2019) Resolved Problems Problem Noted Date Resolved Date Spondylosis of lumbar region without myelopathy or radiculo johanna 01/12/2019 01/16/2019 Overview: Added automatically from request for josé luis penaery [id number] documented as of this encounter (statuses as of 10/31/2019) Immunizations Name Administration Dates Next Due Influenza [...] She was being seen by physicians at [facility], and her said that they "threw their [...] propionate 50 mcg/actuation nasal spray Use 1 [place] in each nost ril 2 (two) times [...] EXAM Alert, oriented times 3. Intact speech reception manager/expression. Eye movements obser reanna. No facial asymmetry [...] (AVS ) documentation will be available through [employer] for t his encounter. A total of 25 minutes was spent on the Video call, chart review. Medication tr eatment options/Side effects discussed. Workup/Plan of care discussed. Kashif Cee MD documented in this encounter Plan of Treatment Care Team Description Date Type Specialty Marvin Oocnnor MD [address] [place], [place] [address] 11/09/2019 Telemedicine Internal Medicine Visit Sukh Harris MD [address] [facility] [id number] [place], [place] [address] 11/23/2019 Office Visit Pain Medicine Laurie Hull LPC [address] [place], [place] [address] 11/30/2019 Office Visit Psychiatry Dieter Zhou MD [address] [facility] [id number] [place] [address] [phone] 01/03/2020 Office Visit Pulmonary Disease Marvin Oconnor MD [address] [place], [place] [phone] 01/09/2020 Appointment Radiology Marvin Oconnor MD [address] [place], [place] [address] 01/09/2020 Appointment Radiology Beth Marquez MD [address] [place] [phone] 01/11/2020 Office Visit Psychiatry Health Maintenance [...] Phone Address Plan / Dates Group O [facility] [id number] 2019-P [address] [employer] [facility] [id number] [place] [address] documented as of this encounter
--- OUTSIDE RECORDS SUMMARY | 2019-11-09 10:12 | XMS REPORT | Summary of Care ---
Author Author [facility] - Health Organization [facility] - Health Address Unknown Phone Unavailable Care Team Providers Care Freight And Passenger Agent Name Role Phone Fabien Fernandes MD Unavailable Marvin Oconnor MD PCP Cady Team 25 Unavailable Reason for Visit * Reason Comments Other spells Encounter Details Care Team Description Date Type Department Kashif Cee MD [address] [place] [phone] Psychogenic nonepileptic seizure (Primar y Dx); Obesity (BMI 30-39.9); Chronic pain disorder; Radiculopathy of thoracolumbar region 10/26/2019 Telemedicine [facility] Neurolo gy- Visit [facility] [address] [facility], 6th [place] [address] Allergies Comments Active Allergy Reactions Severity Noted Date Azithromycin Itching 01/07/2019 Ciprofloxacin Rash 01/27/2018 Clindamycin Other - See Medium 10/05/2016 comments, Itching Clonazepam Itching, Medium 11/23/2017 Rash, Swelling All steroids-muscle weakness Corticosteroids Other - See 01/20/2016 (Glucocorticoids) comments Doxycycline Rash Low 08/21/2019 Iodine Rash 10/05/2016 "swelling internally" per patient Cephalexin Itching, Rash 08/18/2019 Lincomycin Rash Medium 09/15/2017 Nitrofurantoin Rash 01/27/2018 Other [place]-3s Anaphylaxis 01/27/2018 States it would be fatal [...] mg by 0 10/31 mouth. 8 Active cannabidiol, CBD, Take by 0 (CANNABIDIOL ORAL) mouth 3 (three) times daily as needed. Active fluticasone propionate 50 Use 1 [place] 16 g 0 mcg/actuation nasal in each [...] 0 vaginal creamIndications: at bedtime. Vaginal atrophy Active gabapentin 400 mg Take two 400 165 capsule 0 02 capsuleIndications: mg tablets PO 0 Radiculopathy of in the thoracolumbar region morning, one 400 mg tablet PO in the afternoon, and one 400mg PO in the evening times 5 days, then take two 400mg tablets PO in the morning, two 400mg tablets PO in the afternoon, and one 400mg tablet PO in the evening x 5 days, then take two 400 mg tablets PO THREE TIMES A DAY on going. 11/01/2019 Discontinued (Reorder) gabapentin 400 mg TAKE 1 90 capsule 2 07/13/19 2 capsuleIndications: CAPSULE BY 0 Radiculopathy of MOUTH THREE thoracolumbar region TIMES A DAY 10/26/2019 Discontinued (Reorder) SERTraline 100 mg Take 1 tablet 30 tablet 1 tabletIndications: by mouth 0 Psychogenic nonepileptic daily. seizure 11/01/2019 Discontinued (Reorder) gabapentin 400 mg Take two 400 90 capsule 2 02 capsuleIndications: mg tablets PO 0 Radiculopathy of in the thoracolumbar region morning, one 400 mg tablet PO in the afternoon, and one 400mg PO in the evening times 5 days, then take two 400mg tablets PO in the morning, two 400mg tablets PO in the afternoon, and one 400mg tablet PO in the evening x 5 days, then take two 400 mg tablets PO THREE TIMES A DAY on going. documented as of this encounter (statuses as of 11/01/2019) Active Problems Problem Noted Date Altered mental status 09/04/2019 Cellulitis 09/04/2019 Chronic lumbar radiculopathy 01/12/2019 Overview: Added automatically from request for ordonez rgery [id number] 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 01/12/2019 Overview: Added automatically from request for ordonez rgery [id number] Obesity (BMI 30-39.9) 12/16/2018 Recurrent UTI 05/17/2018 [...] automatically from request for josé luis silvestre [id number] documented as of this encounter (statuses as [...] She was being seen by physicians at [facility], and her said that they [...] propionate 50 mcg/actuation nasal spray Use 1 [place] in each nost ril 2 (two) times [...] EXAM Alert, oriented times 3. Intact speech spa receptionist/expression. Eye movements obser reanna. No facial [...] (AVS ) documentation will be available through [employer] for t his encounter. A total of 25 minutes was spent on the Video call, chart review. Medication tr eatment options/Side effects discussed. Workup/Plan of care discussed. Kashif Cee MD documented in this encounter Plan of Treatment Care Team Description Date Type Specialty Marvin Oconnor MD [address] [place], [place] [phone] 11/09/2019 Telemedicine Internal Medicine Visit Sukh Harris MD [address] [facility] [id number] [place], [place] [phone] 11/23/2019 Office Visit Pain Medicine Laurie Hull LPC [address] [place], [place] [phone] 11/30/2019 Office Visit Psychiatry Dieter Zhou MD [address] [facility] [id number] [place], [place] [phone] 01/03/2020 Office Visit Pulmonary Disease Marvin Oconnor MD [address] [place] [phone] 01/09/2020 Appointment Radiology Marvin Oconnor MD [address] [place] [phone] 01/09/2020 Appointment Radiology Beth Marquez MD [address] [place] [address]. [place] [phone] 01/11/2020 Office Visit Psychiatry Health Maintenance [...] unspecified Chronic pain disorder Chronic pain syndrome Radiculopathy of thoracolumbar region Thoracic or lumbosacral neuritis or rad iculitis, unspecified documented in this encounter Insurance Type Payer Benefit Subscriber ID Effective Phone Address Plan / Dates Group O [facility] [id number] 2019-P [address] [facility] [id number] [place] [address] documented as of this encounter
--- OUTSIDE RECORDS SUMMARY | 2019-11-09 10:12 | XMS REPORT | Clinical Summary ---
Author Author [facility] - Health Organization [facility] - Health Address Unknown Phone Unavailable Care Team Providers Care Np Name Role Phone Fabien Fernandes MD Unavailable [...] Rash Medium 09/15/2017 Nitrofurantoin Rash 01/27/2018 Other [place]-3s Anaphylaxis 01/27/2018 States it would be fatal [...] needed. Active fluticasone propionate 50 Use 1 [place] 16 g 0 mcg/actuation nasal in each [...] vaginal creamIndications: at bedtime. Vaginal atrophy Active SERTraline 100 mg Take 1 tablet 90 tablet 0 tabletIndications: by mouth 0 Psychogenic nonepileptic daily. 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/12/2019 Overview: Added automatically from request for josé luis penaery [id number] Obesity (BMI 30-39.9) 12/16/2018 Recurrent UTI 05/17/2018 [...] automatically from request for josé luis silvestre [id number] Encounters Care Team Description Date Type Specialty Marvin Oconnor MD Arrived 10/25/2019 Hospital Radiology Encounter 10/25/2019 Travel 10/23/2019 Travel Eleno Mcnamara MD Vaginal atrophy (Primary Dx) 10/20/2019 Telemedicine Obstetrics & Gyneco logy Visit Doctor Unassigned, [place] Refill Request 10/15/2019 Refill Nephrology Marvin Oconnor MD Pain of right hand [...] Assessment (ILR explant wound check); 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; 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 09/18/2019 Telephone Cardiology Boom Santiago MD Assessment 09/18/2019 Telephone Cardiology Boom Santiago MD Appointment; Talk To Nurse 09/08/2019 Telephone Cardiology Kashif Cee MD Appointment (new patient / Jaye) 09/08/2019 Telephone Neurology Boom Santiago MD Provider, [facility] Ep Lab 2, Clc Cardiac Proc Room [...] Visit Internal Medicine Joseph Kat MD Pacemaker/Icd, [facility] Marvin Oconnor MD Syncope, unspecified syncope type 08/29/2019 Hospital Cardiac Electrophys iology Encounter Boom Santiago MD Assessment (ILR wound infection) 08/29/2019 Telephone Cardiac Electrophys iology Boom Santiago MD Assessment 08/23/2019 Telephone Cardiology Boom Santiago MD Assessment; Rx Concern/Question 08/21/2019 Telephone Cardiology Boom Santiago MD Provider, [facility] Ep Lab Area, Clc Holding Psychogenic nonepileptic seizure (Primar y Dx); Status post placement of implantable loop recorder 08/18/2019 Hospital Cardiac Electrophys iology Encounter Boom Santiago MD Appointment 08/17/2019 Telephone Cardiac Seo Manager Marvin Oconnor MD Lab Results 08/17/2019 Telephone Internal [place] MD Viral URI with cough (Primary Dx); Goiter; Mesenteric panniculitis; Breast cancer screening by mammogram 08/16/2019 Office Visit Internal Medicine Doctor Unassigned, [place] 08/15/2019 Orders Only Boom Santiago MD Orders [...] MD Assessment; Seizures; Procedure 07/31/2019 Telephone Cardiology Mavrin Oconnor MD Lab Results 07/31/2019 Telephone Internal Medicine Dieter Zhou MD Test, [facility] Pulmonary Function Dyspnea on exertion 07/28/2019 Care Process Manager Pulmonary Function Visit Technologist Doctor Unassigned, [place] 07/28/2019 Orders Only from Last 3 Months Immunizations Name Administration [...] or suspected to have Coronavirus / COVID-19? Last Filed Vital Signs Reading Time Taken [...] Marvin Oconnor MD [address] [place] [address] [place] [address] [phone] 11/09/2019 Telemedicine Internal Medicine Visit Sukh Harris MD [id number] [place], [place] [id number] 11/23/2019 Office Visit Pain Medicine Dieter Zhou MD [id number] [place], [place] [id number] 01/03/2020 Office Visit Pulmonary Disease Marvin Oconnor MD [address] [place] [address] [place] [address] [phone] 01/09/2020 Appointment Radiology Marvin Oconnor MD [address] [place], [place] [phone] 01/09/2020 Appointment Radiology Health Maintenance Due Date [...] Name Priority Date/Time Associated Diag nosis XR FOREARM 2 VW RIGHT JAMES 10/25/2019 Pain of right hand 1:33 PM CDT Right wrist pain Right elbow pain XR ELBOW >3 VW RIGHT JAMES 10/25/2019 Pain of r ight hand 1:33 PM CDT Right wrist pain Right elbow pain XR HAND 3+ VW RIGHT JAMES 10/25/2019 Pain of ri ght hand 1:33 PM CDT Right wrist pain Right elbow pain ASSIGNMENT OF BENEFITS Routine 10/25/2019 12:59 PM CDT CONSENT/REFUSAL FOR Routine 10/25/2019 DIAGNOSIS AND TREATMENT 12:59 PM CDT CORONARY ANGIOGRAPHY Routine 09/05/2019 10:50 AM CDT LIPID PANEL ([id number])(TOTAL Routine 09/05/2019 CHOLESTEROL, 4:26 AM CDT TRIGLYCERIDES, [...] HEPATIC FUNCTION PANEL STAT 09/04/2019 Seizure s ([id number]) (ALB,T.PRO,BILI 7:39 AM CDT T,BU/BC,ALT,AST,ALK PHOS) BASIC [...] Routine 08/18/2019 Psychog enic nonepileptic 12:00 PM SHEET METAL WELDER seizure NOTICE OF PRIVACY Routine 08/18/2019 PRACTICES 10:37 AM SHEET METAL WELDER CONSENT/REFUSAL FOR Routine 08/18/2019 DIAGNOSIS AND TREATMENT 10:36 AM SHEET METAL WELDER ASSIGNMENT OF BENEFITS Routine 08/18/2019 10:35 AM SHEET METAL WELDER EP PROCEDURES Routine 08/18/2019 12:01 AM SHEET METAL WELDER POCT FLU A AND B Routine 08/16/2019 Viral URI wit h cough (MOLECULAR) AUTHORIZATION FOR RELEASE Routine 08/15/2019 OF PHI 12:01 AM SHEET METAL WELDER THYROID STIMULATING STAT 08/13/2019 Goiter HORMONE 9:02 PM SHEET METAL WELDER CBC WITH DIFFERENTIAL STAT 08/13/2019 Lower ab dominal pain 9:02 PM SHEET METAL WELDER TROPONIN I STAT 08/13/2019 Lower abdominal pain 9:02 PM SHEET METAL WELDER LIPASE STAT 08/13/2019 Lower abdominal pain 9:02 PM SHEET METAL WELDER HEPATIC FUNCTION PANEL STAT 08/13/2019 Lower a bdominal pain (54297) (ALB,T.PRO,BILI 9:02 PM SHEET METAL WELDER T,BU/BC,ALT,AST,ALK PHOS) BASIC METABOLIC PANEL STAT 08/13/2019 Lower ab dominal pain (NA, K, CL, CO2, GLUCOSE, 9:02 PM SHEET METAL WELDER BUN, CREATININE, CA) CBC WITH DIFFERENTIAL Routine 08/13/2019 Lower ab dominal pain 9:[address] ABDOMEN PELVIS WO STAT 08/13/2019 Lower abd ominal pain CONTRAST 8:19 PM SHEET METAL WELDER XR CHEST 1 VW STAT 08/13/2019 Lower abdominal pain 8:12 PM SHEET METAL WELDER URINALYSIS STAT 08/13/2019 Lower abdominal pain 7:56 PM SHEET METAL WELDER EKG-12 LEAD Routine 08/13/2019 7:52 PM SHEET METAL WELDER EKG-12 LEAD STAT 08/13/2019 7:48 PM SHEET METAL WELDER EKG-12 LEAD Routine 08/13/2019 6:37 PM SHEET METAL WELDER EMERGENCY SERVICES Routine 08/13/2019 AGREEMENTS AND 12:01 AM SHEET METAL WELDER AUTHORIZATIONS XR ANKLE 3+ VW RIGHT Routine 08/07/2019 Right mike t pain 1:50 PM SHEET METAL WELDER XR FOOT 3+ VW RIGHT Routine 08/07/2019 Right mike t pain 1:50 PM SHEET METAL WELDER EXTERNAL PROVIDER RECORDS Routine 08/04/2019 12:01 AM SHEET METAL WELDER PULMONARY FUNCTION TEST Routine 07/28/2019 (RESULTS) 10:43 AM SHEET METAL WELDER EXTERNAL PROVIDER RECORDS Routine 07/28/2019 12:01 AM SHEET METAL WELDER EXTERNAL PROVIDER RECORDS Routine 07/28/2019 12:01 AM SHEET METAL WELDER from Last 3 Months Results * XR HAND 3+ VW RIGHT (10/25/2019 [...] City/State/Zipcode Ph one Number PACS/VR/DOSE * XR FOREARM 2 VW RIGHT (10/25/2019 [...] Osteoarthrosis of the hand. Performing Organization Address [facility] one Number PACS/VR/DOSE * XR ELBOW >3 [...] Osteoarthrosis of the hand. Performing Organization Address [facility] Ph one Number PACS/VR/DOSE * ASSIGNMENT OF BENEFITS (10/25/2019 12:59 PM CDT) Only the most recent of 2 results within the time period is included. Specimen Performing Organization Address [facility] Ph one Number HIM * CONSENT/REFUSAL FOR DIAGNOSIS AND TREATMENT (10/25/2019 12:59 PM CDT) Only the most recent of 3 results within the time period is included. Specimen Performing Organization Address City/[facility] one Number HIM * CORONARY ANGIOGRAPHY (09/05/2019 10:50 AM CDT) Specimen Performing Organization Address [facility] one Number CATH * Lipid Panel (Total Cholesterol, Triglycerides, HDL) - Fasting (09/05/2019 4:26 AM CDT) CHOL 254 (H) 120 - 200 mg/dL [facility] HDL 38 (L) >50 mg/dL [facility] HDLC RATIO 6.7 (H) <=4.5 [facility] TRIG 285 (H) 30 - 170 mg/dL [facility] LDL CHOL 159 <=160 mg/dL [facility] VLDL 57 5 - 60 mg/dL [facility] Specimen Blood - VENOUS Performing Organization Address [facility] one Number [facility] CLIA: [id number], [address] [place], [place] [address] [facility] * Urinalysis (09/04/2019 9:13 AM CDT) Only the most recent of 2 results within the time period is included. APPEARANCE Cloudy (A) Clear [facility] COLOR Yellow Yellow [facility] PH 6.0 4.8 - 8.0 [facility] SP GRAVITY 1.009 1.003 - 1.030 [facility] GLU U QUAL Normal Normal [facility] BLOOD Negative Negative [facility] KETONES Negative Negative [facility] PROTEIN Negative Negative [facility] UROBILIN Normal Normal [facility] BILIRUBIN Negative Negative [facility] NITRITE Negative Negative [facility] LEUK MICHAEL 250/uL (A) Negative [facility] RBC/HPF 0 0 - 3 HPF [facility] WBC/HPF 4 0 - 5 HPF [facility] BACTERIA Few (A) Negative [facility] MUCOUS Slight (A) Negative LPF [facility] SQ EPITH 2 <=2 HPF [facility] Specimen Urine - URINE, CLEAN CATCH Performing Organization Address [facility] one Number [facility] CLIA: [id number], [address] [place], [place] [address] [facility] * Drug Screen ER (09/04/2019 9:13 AM CDT) AMPHET Negative Negative [facility] Cocaine Negative Negative [facility] Metabolite [facility] OPIATES Negative Negative [facility] THC Negative Negative [facility] Specimen Urine - URINE, CLEAN CATCH Narrative Performed At Urine Drug Cutoff Ranges [facility] Amphetamine: 1,000 ng/mL [facility] Cocaine: 150 ng/mL [facility] Opiates: 300 ng/mL Cannabinoids: 50 ng/mL The results are to be used only for med ical (i.e., treatment) purposes. Unconfirmed screening results must not be used for non-medical purposes (e.g., employment testing, legal testing). Performing Organization Address [facility] one Number [facility] CLIA: [id number], [address] [place], [place] [address] [facility] * Chest 1 View (09/04/2019 8:09 AM [...] superimposed u brittany the heart. Procedure Note Ut, Radiant Results Inft User - 09/04/2019 8:38 AM CDT EXAM: XR CHEST 1 VW HISTORY: weakness COMPARISON: None. FINDINGS: The heart and great vessels are normal and the lungs are satisfactorily expanded and clear except for minor basilar subsegmental atelectasis on the left. A loop recorder is superimposed upon the heart. Performing Organization Address City/[facility] one Number PACS/VR/DOSE * EKG-12 LEAD (09/04/2019 7:50 AM CDT) Specimen Performing Organization Address [facility] Ph one Number HST * Lactic Acid Whole Blood (09/04/2019 7:44 AM CDT) LACTIC ACID 1.90 0.50 - 2.20 mmol/L [facility] Specimen Blood - VENOUS Performing Organization Address [facility] Ph one Number [facility] CLIA: [id number], [address] [place], [place] [address] [facility] * BLOOD CULTURE SCREEN (09/04/2019 7:43 AM CDT) Only the most recent of 2 results within the time period is included. Blood No organisms isolated No growth [facility] Culture-Aerobic Comment: [facility] Previous preliminary verified [facility] result was Culture In Progress on 09/04/2019 at 1601 CDT Previous preliminary verified result was No growth at 24 hours on 09/05/2019 at 1301 CDT Previous preliminary verified result was No growth at 48 hours on 09/06/2019 at 1301 CDT Previous preliminary verified result was No growth at 72 hours on 09/07/2019 at 1301 CDT Blood No organisms isolated No growth [facility] Culture-Anaerob Comment: [facility] Previous preliminary verified [facility] MPUS result was Culture In [...] Specimen Blood - VENOUS Performing Organization Address [facility] one Number [facility] CLIA: [id number], [address] [place], [place] [address] [facility] * CBC WITH DIFFERENTIAL (09/04/2019 7:39 AM CDT) Only the most recent of 2 results within the time period is included. WBC 5.87 4.30 - 11.10 [facility] 10*3/L [facility] RBC 4.98 3.93 - 5.25 10*6/L [facility] HGB 14.0 11.6 - 15.0 g/dL [facility] HCT 41.9 35.7 - 45.2 % [facility] MCV 84.1 80.6 - 95.5 fL [facility] MCH 28.1 25.9 - 32.8 pg [facility] MCHC 33.4 31.6 - 35.1 g/dL [facility] RDW-SD 39.8 39.0 - 49.9 fL [facility] RDW-CV 13.1 12.0 - 15.5 % [facility] PLT 186 166 - 358 10*3/L [facility] MPV 10.8 9.5 - 12.9 fL [facility] NRBC/100 WBC 0.0 0.0 - 10.0 /100 WBCs [facility] NRBC x10^3 <0.01 10*3/L [facility] GRAN MAT (NEUT) 55.1 % [facility] % [facility] IMM GRAN % 0.30 % [facility] LYMPH % 32.9 % [facility] MONO % 9.2 % [facility] EOS % 2.0 % [facility] BASO % 0.5 % [facility] GRAN MAT 3.23 1.88 - 7.09 10*3/uL [facility] x10^3(ANC) [facility] IMM GRAN x10^3 <0.03 0.00 - 0.06 10*3/uL [facility] LYMPH x10^3 1.93 1.32 - 3.29 10*3/uL [facility] MONO x10^3 0.54 0.33 - 0.92 10*3/uL [facility] EOS x10^3 0.12 0.03 - 0.39 10*3/uL [facility] BASO x10^3 0.03 0.01 - 0.07 10*3/uL [facility] Specimen Blood - VENOUS Performing Organization Address City/[facility] Ph one Number [facility] CLIA: [id number], [address] [place] [address] [facility] * N-TERMINAL PRO-BNP (09/04/2019 7:39 AM CDT) NT-proBNP 24 <=125 pg/mL [facility] Specimen Blood - VENOUS Narrative Performed At Biotin has been reported to cause a neg ative bias, interpret results relative to [facility] patient's use of biotin. [facility] Performing Organization Address [facility] one Number [facility] CLIA: [id number], [address] [place] [address] [facility] * aPTT (09/04/2019 7:39 AM CDT) APTT Patient 33 26 - 36 Seconds [facility] Specimen Blood - VENOUS Performing Organization Address [facility] one Number [facility] CLIA: [id number], [address] [place] [address] [facility] * Prothrombin Time (PT) / INR (09/04/2019 7:39 AM CDT) Only the most recent of 2 results within the time period is included. PROTIME PATIENT 11.1 10.1 - 12.6 Seconds [facility] INR 1.0Comment: Normal INR <1.1; [facility] Warfarin Therapeutic range 2.0 [facility] to 3.0 or 2.5 to 3.5, [facility] depending upon the indications. Specimen Blood - VENOUS Performing Organization Address City/[facility] Ph one Number [facility] CLIA: [id number], [address] [place], [place] [address] [facility] * Glycosylated Hemoglobin (A1C) (09/04/2019 7:39 AM CDT) HGB A1C 6.2 (H) 4.0 - 6.0 % NGSP [facility] Specimen Blood - VENOUS Performing Organization Address [facility] Ph one Number [facility] CLIA: [id number], [address] [place] [address] [facility] * Ethanol Level (09/04/2019 7:39 AM CDT) ALCOHOL <10 mg/dL [facility] Specimen Blood - VENOUS Narrative Performed At Toxic Greater than or equal to 80 mg/dL. [facility] NOTE: Whole blood values are approximately 10% to 15% lower than serum and [facility] plasma. CAMPUS Performing Organization Address [facility] Ph one Number [facility] CLIA: [id number], [address] [place] [address] [facility] * Basic Metabolic Panel (NA, K, CL, CO2, GLUCOSE, BUN, CREATININE, CA) (09/04/2019 7:39 AM CDT) Only the most recent of 2 results within the time period is included. NA 140 135 - 145 mmol/L [facility] K 3.3 (L) 3.5 - 5.0 mmol/L [facility] CL 99 98 - 108 mmol/L [facility] Y [facility] CO2 TOTAL 28 23 - 31 mmol/L [facility] AGAP 13 2 - 16 [facility] BUN 17 7 - 23 mg/dL [facility] GLUCOSE 113 (H) 70 - 110 mg/dL [facility] CREATININE 0.65 0.50 - 1.04 mg/dL [facility] ORY [facility] CALCIUM 9.3 8.6 - 10.6 mg/dL [facility] eGFR 92.1 mL/min/1.73m2 [facility] Calculation SERVICES[facility] ([facility] Bulgarian) eGFR 111.6 mL/min/1.73m2 [facility] Calculation [facility] ([facility]) Specimen Blood - VENOUS Narrative Performed At [facility] Glomerular Filtration Rate (GFR) and S taging of Kidney Disease* [facility] + + +------ + SERVICES[facility] | GFR (mL/min/1.73 m2) | With Kidney Damage | [facility] Kidney Damage SARANAC + + -------+ + | >90 | [...] one Number [facility] CLIA: [id number], [address] [place], [place] [address] [facility] * Hepatic Function Panel (ALB, T.PRO, BILI T, BU/BC, ALT, AST, ALK PHOS) (09/04/2019 7:39 AM CDT) Only the most recent of 2 results within the time period is included. TOTAL BILI 0.3 0.1 - 1.1 mg/dL [facility] BILI UNCON 0.3 0.1 - 1.1 mg/dL [facility] BILI CONJ 0.0 0.0 - 0.3 mg/dL [facility] T PROTEIN 7.1 6.3 - 8.2 g/dL [facility] ALBUMIN 4.4 3.5 - 5.0 g/dL [facility] ALK PHOS 66 34 - 122 U/L [facility] ALTv 24 5 - 35 U/L [facility] AST(SGOT) 22 13 - 40 U/L [facility] Specimen Blood - VENOUS Performing Organization Address City/State/[facility] Ph one Number [facility] CLIA: [id number], [address] [place], [place] [address] [facility] * Troponin I (09/04/2019 7:39 AM CDT) Only the most recent of 2 results within the time period is included. TROPONIN I <0.012 <=0.034 ng/mL [facility] Specimen Blood - VENOUS Narrative Performed At Equal or Less than 0.034 ng/ml---Normal [facility] Note: Cardiac troponin begins to rise 3-4 hours after the onset of ischemia. [facility] Repeat in 4-6 hours if the sample was d rawn within 3-4 hours of the onset of the SARANAC symptom and found normal. Between 0.035 and [...] one Number [facility] CLIA: [id number], [address] [place], [place] [address] [facility] * HOSPITAL ADMISSION (09/04/2019 12:01 AM CDT) Specimen Performing Organization Address City/State/Zipcode Ph one Number HIM * EXTERNAL PROVIDER RECORDS (09/04/2019 12:01 AM CDT) Only the most recent of 4 results within the time period is included. Specimen Performing Organization Address City/State/Zipcode Ph one Number HIM * ILR DEVICE CHECK (08/29/2019 12:00 AM CDT) Specimen Performing Organization [facility] one Number EP * NOTICE OF PRIVACY PRACTICES (08/18/2019 10:37 AM SHEET METAL WELDER) Specimen Performing Organization Address [facility] one Number HIM * EP PROCEDURES (08/18/2019 12:01 AM SHEET METAL WELDER) Specimen Performing Organization [facility] one Number HIM * POCT FLU A AND B (MOLECULAR) (08/16/2019) POCT INFLUENZA Negative Negative - Negative A POCT INFLUENZA Negative Negative - Negative B Specimen Swab * AUTHORIZATION FOR RELEASE OF PHI (08/15/2019 12:01 AM SHEET METAL WELDER) Specimen Performing Organization [facility] one Number HIM * THYROID STIMULATING HORMONE (08/13/2019 9:02 PM SHEET METAL WELDER) TSH 1.93Comment: Biotin has been 0.45 - 4.70 mIU/L [facility] reported to cause a negative SERVICES-CLEAR bias, interpret results [facility] relative to patient's use of biotin. Specimen Blood - VENOUS Performing Organization [facility] one Number [facility] CLIA: [id number], [address] [address] 98 [facility] * Lipase Serum (08/13/2019 9:02 PM SHEET METAL WELDER) LIPASE 205 0 - 220 U/L [facility] Specimen Blood - VENOUS Performing Organization [facility] one Number [facility] CLIA: [id number], [address] [place], [place] [address] [facility] * CT Abdomen/Pelvis W/O Contrast (08/13/2019 8:19 PM SHEET METAL WELDER) Specimen Impressions Performed At Findings suggest mesenteric [...] Results Inft User - 08/13/2019 9:04 PM SHEET METAL WELDER EXAM: CT ABDOMEN AND PELVIS WITHOUT CONTRAST [...] no follow-up is recommended. Performing Organization Address [facility]/State[facility] one Number PACS/VR/DOSE * EKG-12 LEAD (08/13/2019 7:52 PM SHEET METAL WELDER) Specimen Performing Organization Address [facility] one Number HST * EKG-12 LEAD (08/13/2019 6:37 PM SHEET METAL WELDER) Specimen Performing Organization Address [facility] Ph one Number HST * EMERGENCY SERVICES AGREEMENTS AND AUTHORIZATIONS (08/13/2019 12:01 AM SHEET METAL WELDER) Specimen Performing Organization Address [facility] Ph one Number HIM * XR FOOT 3+ VW RIGHT (08/07/2019 1:50 PM SHEET METAL WELDER) Specimen Impressions Performed At No acute bony [...] Results Inft User - 08/07/2019 3:14 PM SHEET METAL WELDER EXAM: XR FOOT 3+ VW RIGHT, EXAM: XR ANKLE 3+ VW RIGHT HISTORY: pain COMPARISON: 11/16/2017 FINDINGS: Imaging of the right foot and ankle was obtained. Osteopenia is noted. Joint spaces are maintained. Calcaneal enthesophytes are noted. Mild dorsal talonavicular osteophytosis is present. The ankle mortise is congruent. IMPRESSION No acute bony abnormality. Mild osteoarthrosis. Performing Organization Address [facility] Ph one Number PACS/VR/DOSE * XR ANKLE 3+ VW RIGHT (08/07/2019 1:50 PM SHEET METAL WELDER) Specimen Impressions Performed At No acute bony [...] Results Inft User - 08/07/2019 3:14 PM SHEET METAL WELDER EXAM: XR FOOT 3+ VW RIGHT, EXAM: XR ANKLE 3+ VW RIGHT HISTORY: pain COMPARISON: 11/16/2017 FINDINGS: Imaging of the right foot and ankle was obtained. Osteopenia is noted. Joint spaces are maintained. Calcaneal enthesophytes are noted. Mild dorsal talonavicular osteophytosis is present. The ankle mortise is congruent. IMPRESSION No acute bony abnormality. Mild osteoarthrosis. Performing Organization Address City/State[facility] Ph one Number PACS/VR/DOSE * PULMONARY FUNCTION TEST (RESULTS) (07/28/2019 10:43 AM SHEET METAL WELDER) Specimen Performing Organization Address City/State/Zipcode Ph one Number PFT from Last 3 Months Insurance Type Payer Benefit Subscriber ID Effective Phone Address Plan / Dates Group HMO [facility] [id number] 2019-P [address] [employer] [facility] [id number] [place] [address]
--- OUTSIDE RECORDS SUMMARY | 2019-11-09 10:12 | XMS REPORT | Summary of Care ---
Author Author [facility] - Health Organization [facility] - Health Address Unknown Phone Unavailable Care Team Providers Care Agricultural Service Technician Name Role Phone Fabien Fernandes MD Unavailable Marvni Oconnor MD PCP Cady Team 25 Unavailable Encounter Details Care Team Description Date Type Department Zoila Rodas AGNP [address] [place] [address] 10/31/2019 Patient Secure [facility] [address] [place] [phone] Allergies Comments Active Allergy Reactions Severity Noted Date Azithromycin Itching 01/07/2019 Ciprofloxacin Rash 01/27/2018 Clindamycin Other - See Medium 10/05/2016 comments, Itching Clonazepam Itching, Medium 11/23/2017 Rash, Swelling All steroids-muscle weakness Corticosteroids Other - See 01/20/2016 (Glucocorticoids) comments Doxycycline Rash Low 08/21/2019 Iodine Rash 10/05/2016 "swelling internally" per patient Cephalexin Itching, Rash 08/18/2019 Lincomycin Rash Medium 09/15/2017 Nitrofurantoin Rash 01/27/2018 Other [place]-3s Anaphylaxis 01/27/2018 States it would be fatal [...] needed. 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 [place] [phone] 11/09/2019 Telemedicine Internal Medicine Visit Sukh Harris MD [address] [facility] [address] [place], [place] [address] 11/23/2019 Office Visit Pain Medicine Laurie Hull LPC [address] [place] [address] [phone] 11/30/2019 Office Visit Psychiatry Dieter Zhou MD [address] [id number] [place] [address] [phone] 01/03/2020 Office Visit Pulmonary Disease Marvin Oconnor MD [address] [place], [place] [phone] 01/09/2020 Appointment Radiology Marvin Oconnor MD [address] [place], [place] [phone] 01/09/2020 Appointment Radiology Beth Marquez MD [address] [place] [address]. [place] [address] [phone] 01/11/2020 Office Visit Psychiatry Health Maintenance Due [...] Phone Address Plan / Dates Group O [facility] [id number] 2019-P [address] [facility] [facility] [id number] [place] [address] documented as of this encounter
--- OUTSIDE RECORDS SUMMARY | 2019-11-09 10:12 | XMS REPORT | Summary of Care ---
Author Author [facility] - Health Organization [facility] - Health Address Unknown Phone Unavailable Care Team Providers Care Python Architect Name Role Phone Fabien Fernandes MD Unavailable Marvin Oconnor MD PCP Cady Team 25 Unavailable Encounter Details Care Team Description Date Type Department Doctor Unassigned, [place] [address] [place] [address] 11/08/2019 Orders Only [facility] 301 [place] [address] Allergies Comments Active Allergy Reactions Severity Noted Date Azithromycin Itching 01/07/2019 Ciprofloxacin Rash 01/27/2018 Clindamycin Other - See Medium 10/05/2016 comments, Itching Clonazepam Itching, Medium 11/23/2017 Rash, Swelling All steroids-muscle weakness Corticosteroids Other - See 01/20/2016 (Glucocorticoids) comments Doxycycline Rash Low 08/21/2019 Iodine Rash 10/05/2016 "swelling internally" per patient Cephalexin Itching, Rash 08/18/2019 Lincomycin Rash Medium 09/15/2017 Nitrofurantoin Rash 01/27/2018 Other [place]-3s Anaphylaxis 01/27/2018 States it would be fatal Penicillins Other - See High 01/20/2016 comments, Shortness of Breath Shellfish Derived Other - See 03/18/2019 comments BActrim Rash Sulfamethizole Rash 07/05/2019 New string of tetanus- went to ER , medication for throat closing up Tetanus Vaccines And Swelling High 6 Toxoid documented as of this encounter (statuses as of 11/08/2019) Medications End Date Status Medication Sig Dispensed [...] needed. Active fluticasone propionate 50 Use 1 [place] 16 g 0 mcg/actuation nasal in each 0 sprayIndications: Viral nostril 2 URI with cough (two) times daily. Active VITAMIN D3 10 mcg (400 Take 1 tablet 0 unit) tablet by mouth 0 daily. Active famotidine 40 mg Take 1 tablet 30 tablet 0 02 tabletIndications: by mouth 0 Gastroesophageal reflux daily. disease without esophagitis Active hydrOXYzine 25 mg Take 2 30 tablet 0 09/05/19 2 tabletIndications: tablets by 0 History of asthma mouth 2 (two) times daily as needed for Itching. Active KCL 10 mEq tablet Take 1 [...] mouth 0 Psychogenic nonepileptic daily. seizure Active gabapentin 400 mg Take two 400 [...] PO THREE TIMES A DAY on going. 11/12/2019 Active cefUROXime 250 mg Take 1 tablet 14 tablet 0 tabletIndications: by mouth 2 0 Urinary tract infection (two) times without hematuria, site daily for 7 unspecified days. 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 01/12/2019 Overview: Added automatically from request for josé luis silvestre [id number] Obesity (BMI 30-39.9) 12/16/2018 Recurrent UTI 05/17/2018 [...] as of this encounter (statuses as of 11/08/2019) Resolved Problems Problem Noted Date Resolved Date Spondylosis of lumbar region without myelopathy or radiculo johanna 01/12/2019 01/16/2019 Overview: Added automatically from request for josé luis silvestre [id number] documented as of this encounter (statuses as of 11/08/2019) Immunizations Name Administration Dates Next Due Influenza [...] Treatment Care Team Description Date Type Specialty Mravin Oconnor MD [address] [place] [address] [place] [phone] 11/09/2019 Telemedicine Internal Medicine Visit Sukh Harris MD 301 [facility] [id number] [place], [place] [address] 11/23/2019 Office Visit Pain Medicine Laurie Hull LPC [address] [place] [address] [phone] 11/30/2019 Office Visit Psychiatry Dieter Zhou MD 301 [facility] [id number] [place], [place] [address] 01/03/2020 Office Visit Pulmonary Disease Marvin Oconnor MD [address] [place] [address] [place] [phone] 01/09/2020 Appointment Radiology Marvin Oconnor MD [address] [place] [address] [place] [phone] 01/09/2020 Appointment Radiology Floresita Bañuelos MD [address] [place] [address]. [place] [phone] 01/11/2020 Office Visit Psychiatry Health Maintenance Due [...] Associated Diag nosis EXTERNAL PROVIDER RECORDS Routine 11/08/2019 12:01 AM CDT documented in this encounter Results Not on filedocumented in this encounter Insurance Type Payer Benefit Subscriber ID Effective Phone Address Plan / Dates Group O [facility] [id number] 2019-P [address] [employer] [facility] [id number] [place] [address] documented as of this encounter
--- OUTSIDE RECORDS SUMMARY | 2019-11-09 10:12 | XMS REPORT | Summary of Care ---
Author Author [facility] - Health Organization [facility] - Health Address Unknown Phone Unavailable Care Team Providers Care Dictionary Editor Name Role Phone Fabien Fernandes MD Unavailable Marvin Oconnor MD PCP Cady Team 25 Unavailable Encounter Details Care Team Description Date Type Department Zoila Rodas AGNP [address] [place] [address] 10/31/2019 Patient Secure [facility] [address] [place] [phone] Allergies Comments Active Allergy Reactions Severity Noted Date Azithromycin Itching 01/07/2019 Ciprofloxacin Rash 01/27/2018 Clindamycin Other - See Medium 10/05/2016 comments, Itching Clonazepam Itching, Medium 11/23/2017 Rash, Swelling All steroids-muscle weakness Corticosteroids Other - See 01/20/2016 (Glucocorticoids) comments Doxycycline Rash Low 08/21/2019 Iodine Rash 10/05/2016 "swelling internally" per patient Cephalexin Itching, Rash 08/18/2019 Lincomycin Rash Medium 09/15/2017 Nitrofurantoin Rash 01/27/2018 Other [place]-3s Anaphylaxis 01/27/2018 States it would be fatal [...] needed. 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 [place] [address] [place] [phone] 11/09/2019 Telemedicine Internal Medicine Visit Sukh Harris MD [address] [facility] NW[address] [place], [place] [address] 11/23/2019 Office Visit Pain Medicine Laurie Hull LPC [address] [place] [address] [phone] 11/30/2019 Office Visit Psychiatry Dieter Zhou MD [address] SU[address] [place] [address] [phone] 01/03/2020 Office Visit Pulmonary Disease Marvin Oconnor MD [address] [place], [place] [phone] 01/09/2020 Appointment Radiology Marvin Oconnor MD [address] [place], [place] [phone] 01/09/2020 Appointment Radiology Beth Marquez MD [address] [place] [address]. [place] [address] [phone] 01/11/2020 Office Visit Psychiatry Health Maintenance Due [...] Phone Address Plan / Dates Group O [facility] [id number] 2019-P [address] [employer] [facility] [id number] [place] [address] documented as of this encounter
--- OUTSIDE RECORDS SUMMARY | 2019-11-09 10:12 | XMS REPORT | Summary of Care ---
Author Author [facility] - Health Organization [facility] - Health Address Unknown Phone Unavailable Care Team Providers Care Plant Anatomist Name Role Phone Fabien Fernandes MD Unavailable Marvin Oconnor MD PCP Cady Team 25 Unavailable Reason for Visit * Reason Comments Bladder Pain burning with urination, sei zures Encounter Details Care Team Description Date Type Department Kiana Dale RN [address] [place] [id number] Bladder Pain (burning with urination, se izures) 11/05/2019 Nurse Triage [facility] [address] [place] [phone] Allergies Comments Active Allergy Reactions Severity Noted Date Azithromycin Itching 01/07/2019 Ciprofloxacin Rash 01/27/2018 Clindamycin Other - See Medium 10/05/2016 comments, Itching Clonazepam Itching, Medium 11/23/2017 Rash, Swelling All steroids-muscle weakness Corticosteroids Other - See 01/20/2016 (Glucocorticoids) comments Doxycycline Rash Low 08/21/2019 Iodine Rash 10/05/2016 "swelling internally" per patient Cephalexin Itching, Rash 08/18/2019 Lincomycin Rash Medium 09/15/2017 Nitrofurantoin Rash 01/27/2018 Other [place]-3s Anaphylaxis 01/27/2018 States it would be fatal Penicillins Other - See High 01/20/2016 comments, Shortness of Breath Shellfish Derived Other - See 03/18/2019 comments BActrim Rash Sulfamethizole Rash 07/05/2019 New string of tetanus- went to ER , medication for throat closing up Tetanus Vaccines And Swelling High 6 Toxoid documented as of this encounter (statuses as of 11/05/2019) Medications End Date Status Medication Sig Dispensed [...] needed. 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 [place], [place] [phone] 11/09/2019 Telemedicine Internal Medicine Visit Sukh Harris MD 301 [facility] [id number] [place], [place] 552[address] 11/23/2019 Office Visit Pain Medicine Laurie Hull LPC [address] [place], [place] [phone] 11/30/2019 Office Visit Psychiatry Dieter Zhou MD 301 [facility] [id number] [place], [place] [address] 01/03/2020 Office Visit Pulmonary Disease Marvin Oconnor MD [address] [place], [place] [phone] 01/09/2020 Appointment Radiology Marvin Oconnor MD [address] [place] [address] [place] [address] 01/09/2020 Appointment Radiology Beth Marquez MD [address] [place] [phone] 01/11/2020 Office Visit Psychiatry Health Maintenance Due [...] Phone Address Plan / Dates Group O [facility] [id number] 2019-P [facility] [address] [place] [address] documented as of this encounter
--- OUTSIDE RECORDS SUMMARY | 2019-11-09 10:12 | XMS REPORT | Summary of Care ---
Author Author [facility] - Health Organization [facility] - Health Address Unknown Phone Unavailable Care Team Providers Care Money Order Clerk Name Role Phone Fabien Fernandes MD Unavailable Marvin Oconnor MD PCP Ulysses Lazar 25 Unavailable Reason for Visit * Reason Comments LAB Encounter Details Care Team Description Date Type Department Zoila Rodas AGNP [address] [place] [address] Draw, Clc-Bls Lab Palpitations; Pre-procedure lab exam; Hypertension, unspecified type; Hypokalemia; Urinary tract infection without hematuria, site unspecified 11/06/[address] [facility] Visit Laboratory, [address] [phone] Allergies Comments Active Allergy Reactions Severity Noted Date Azithromycin Itching 01/07/2019 Ciprofloxacin Rash 01/27/2018 Clindamycin Other - See Medium 10/05/2016 comments, Itching Clonazepam Itching, Medium 11/23/2017 Rash, Swelling All steroids-muscle weakness Corticosteroids Other - See 01/20/2016 (Glucocorticoids) comments Doxycycline Rash Low 08/21/2019 Iodine Rash 10/05/2016 "swelling internally" per patient Cephalexin Itching, Rash 08/18/2019 Lincomycin Rash Medium 09/15/2017 Nitrofurantoin Rash 01/27/2018 Other [place]-3s Anaphylaxis 01/27/2018 States it would be fatal Penicillins Other - See High 01/20/2016 comments, Shortness of Breath Shellfish Derived Other - See 03/18/2019 comments BActrim Rash Sulfamethizole Rash 07/05/2019 New string of tetanus- went to ER , medication for throat closing up Tetanus Vaccines And Swelling High 6 Toxoid documented as of this encounter (statuses as of 11/06/2019) Medications End Date Status Medication Sig Dispensed [...] needed. 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 [place], [place] [phone] 11/09/2019 Telemedicine Internal Medicine Visit Sukh Harris MD 301 [facility] [id number] [place], [place] [address] 11/23/2019 Office Visit Pain Medicine Laurie Hull LPC [address] [place], [place] [phone] 11/30/2019 Office Visit Psychiatry Dieter Zhou MD 301 [id number] [place], [place] [address] 01/03/2020 Office Visit Pulmonary Disease Marvin Oconnor MD [address] [place], [place] [phone] 01/09/2020 Appointment Radiology Marvin Oconnor MD [address] [place], [place] [phone] 01/09/2020 Appointment Radiology Floresita Bañuelos MD [address] [place] [phone] 01/11/2020 Office Visit Psychiatry Date/Time Name Type Priority Associated Diag noses 11/06/2019 9:54 AM CDT CBC W/O DIFF LAB Routine Palpitations Pre-procedure lab exam 11/06/2019 9:54 AM CDT MAGNESIUM LAB Routine Palpitations Pre-procedure lab exam 11/06/2019 9:54 AM CDT BASIC METABOLIC PANEL LAB Routine Palpitat ions (79150)(NA, K, CL, CO2, Pre-procedure lab exam GLUCOSE, BUN, CREATININE, CA) 11/06/2019 9:54 AM CDT PROTHROMBIN TIME / INR LAB Routine Palpita tions Pre-procedure lab exam 11/06/2019 9:54 AM CDT VITAMIN D, 25-OH LAB Routine Hypertension, unspecified type 11/06/2019 9:54 AM CDT INTACT PTH CALCIUM GROUP LAB Routine Hyper tension, unspecified type 11/06/2019 9:55 AM CDT PROTEIN CREAT RATIO URINE LAB Routine Hype rtension, unspecified RANDOM type 11/06/2019 9:54 AM CDT PHOSPHORUS LAB Routine Hypertension, u nspecified type 11/06/2019 9:54 AM CDT URIC ACID LAB Routine Hypertension, u nspecified type 11/06/2019 9:55 AM CDT URINALYSIS LAB Routine Hypertension, u nspecified type Health [...] in this encounter Visit Diagnoses Diagnosis Palpitations Pre-procedure lab exam Pre-procedural laboratory examination Hypertension, unspecified type Hypokalemia Hypopotassemia Urinary tract infection without hematur ia, site unspecified documented in this encounter Insurance Type Payer Benefit Subscriber ID Effective Phone Address Plan / Dates Group [facility] [id number] 2019-P [address] [facility] 215426 [place] [address] documented as of this encounter
--- OUTSIDE RECORDS SUMMARY | 2019-11-09 10:12 | XMS REPORT | Summary of Care ---
Author Author [facility] - Health Organization [facility] - Health Address Unknown Phone Unavailable Care Team Providers Care Cyber Reverse Engineer Name Role Phone Fabien Fernandes MD Unavailable Marvin Oconnor MD PCP Cady Team 25 Unavailable Reason for Visit * Reason Comments Other spells Encounter Details Care Team Description Date Type Department Kashif Cee MD [address] [place] [phone] Psychogenic nonepileptic seizure (Primar y Dx); Obesity (BMI 30-39.9); Chronic pain disorder 10/26/2019 Telemedicine [facility]rol[facility]- Visit [facility] [address] [facility]th [place] [address] Allergies Comments Active Allergy Reactions Severity Noted Date Azithromycin Itching 01/07/2019 Ciprofloxacin Rash 01/27/2018 Clindamycin Other - See Medium 10/05/2016 comments, Itching Clonazepam Itching, Medium 11/23/2017 Rash, Swelling All steroids-muscle weakness Corticosteroids Other - See 01/20/2016 (Glucocorticoids) comments Doxycycline Rash Low 08/21/2019 Iodine Rash 10/05/2016 "swelling internally" per patient Cephalexin Itching, Rash 08/18/2019 Lincomycin Rash Medium 09/15/2017 Nitrofurantoin Rash 01/27/2018 Other Dexter-3s Anaphylaxis 01/27/2018 States it would be fatal [...] needed. 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 Intact speech rehab spec/expression. Eye movements obser reanna. No facial asymmetry [...] (AVS ) documentation will be available through [employer] for t his encounter. A total of 25 minutes was spent on the Video call, chart review. Medication tr eatment options/Side effects discussed. Workup/Plan of care discussed. Kashif Cee MD documented in this encounter Plan of Treatment Care Team Description Date Type Specialty Marvin Oconnor MD [address] [place], [place] [address] 11/09/2019 Telemedicine Internal Medicine Visit Sukh Harris MD [address] [facility] [id number] [place], [place] [address] 11/23/2019 Office Visit Pain Medicine Laurie Hull LPC [address] [place], [place] [address] 11/30/2019 Office Visit Psychiatry Dieter Zhou MD [address] [facility] [id number] [place] [address] [phone] 01/03/2020 Office Visit Pulmonary Disease Marvin Oconnor MD [address] [place], [place] [phone] 01/09/2020 Appointment Radiology Marvin Oconnor MD [address] [place], [place] [address] 01/09/2020 Appointment Radiology Beth Mraquez MD [address] [place] [phone] 01/11/2020 Office Visit Psychiatry Health Maintenance [...] / Dates Group O [facility] [id number] 2019-P [address] [facility] [id number] [place] [address] documented as of this encounter
--- OUTSIDE RECORDS SUMMARY | 2019-11-09 10:12 | XMS REPORT | Summary of Care ---
Author Author [facility] - Health Organization [facility] - Health Address Unknown Phone Unavailable Care Team Providers Care Salt Cutter Name Role Phone Fabien Fernandes MD Unavailable Marvin Oconnor MD PCP Cady Team 25 Unavailable Encounter Details Care Team Description Date Type Department Doctor Unassigned, [place] [address] [place] [address] 09/26/2019 Patient Secure [facility] Res[facility] [address] [facility] [place] [phone] Allergies Comments Active Allergy Reactions Severity Noted Date Azithromycin Itching 01/07/2019 Ciprofloxacin Rash 01/27/2018 Clindamycin Other - See Medium 10/05/2016 comments, Itching Clonazepam Itching, Medium 11/23/2017 Rash, Swelling All steroids-muscle weakness Corticosteroids Other - See 01/20/2016 (Glucocorticoids) comments Doxycycline Rash Low 08/21/2019 Iodine Rash 10/05/2016 "swelling internally" per patient Cephalexin Itching, Rash 08/18/2019 Lincomycin Rash Medium 09/15/2017 Nitrofurantoin Rash 01/27/2018 Other [place]-3s Anaphylaxis 01/27/2018 States it would be fatal Penicillins Other - See High 01/20/2016 comments, Shortness of Breath Shellfish Derived Other - See 03/18/2019 comments BActrim Rash Sulfamethizole Rash 07/05/2019 New string of tetanus- went to ER , medication for throat closing up Tetanus Vaccines And Swelling High 6 Toxoid documented as of this encounter (statuses as of 10/28/2019) Medications End Date Status Medication Sig Dispensed [...] needed. 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 [place], [place] [phone] 11/09/2019 Telemedicine Internal Medicine Visit Sukh Harris MD [address] [facility] [id number] [place], [place] [phone] 11/23/2019 Office Visit Pain Medicine Laurie Hull LPC [address] [place] [address] 11/30/2019 Office Visit Psychiatry Dieter Zhou MD [address] [facility] [id number] [place], [place] [phone] 01/03/2020 Office Visit Pulmonary Disease Marvin Oconnor MD [address] [place] [phone] 01/09/2020 Appointment Radiology Marvin Oconnor MD [address] [place] [phone] 01/09/2020 Appointment Radiology Beth Marquez MD [address] [place] [phone] 01/11/2020 Office Visit Psychiatry Health Maintenance [...] Phone Address Plan / Dates Group O [facility] [id number] 2019-P [address] [facility] [address] [place] [address] documented as of this encounter
== END 2019-11-08 20:36 | disposition home or self-care (01) ==
LOC: ER 15:26
DX: S00.83XA Contusion of other part of head, initial encounter (principal); M54.2 Cervicalgia; W17.89XA Other fall from one level to another, initial encounter; Y92.512 Supermarket, store or market as the place of occurrence of the external cause; I10 Essential (primary) hypertension; E78.5 Hyperlipidemia, unspecified; F41.9 Anxiety disorder, unspecified
CPT/HCPCS: 36415; 70450; 72125; 72131; 72170; 80053; 80307; 81001; 82550; 82553; 84484; 85025; 87086; 93005; 99284; J7030

== ENCOUNTER 2019-11-10 19:51 | Emergency (ER) | payer OTHER ==
[~2019-11-10] VITALS: Ht 154.9 cm; Wt 87.1 kg
--- OUTSIDE RECORDS SUMMARY | 2019-11-10 19:55 | XMS REPORT | Clinical Summary ---
Author Author [facility] Address Unknown Phone Unavailable Care Team Providers Care Transportation Planning Engineer Name Role Phone Mark Pacheco MD PCP [...] VACCINE 01/20/2020 04/21/2018 Results Not on fileafter 11/09/2018 Insurance Type Payer Benefit Subscriber ID Effective Phone Address Plan / Dates Group HMO [employer] MEDICAID [employer] xxxxxxxxx 2016-P COMM STAR+ resent [facility] Advance Directives For more information, please contact: [phone] Patient Mock Up Maker Explanation Type Date Recorded Advance Directives, 11/18/2017 8:07 AM Living Will and Medical Power of Technical Support Specialist
--- OUTSIDE RECORDS SUMMARY | 2019-11-10 19:55 | XMS REPORT | Clinical Summary ---
Author Author [facility] Organization [facility] Address Unknown Phone Unavailable Care Team Providers Care Commercial Review Appraiser Name Role Phone PCP Unavailable Allergies Comments [...] Nose bleed Triamcinolone Acetonide Itching, 07/29/2012 Other Suraisfy-Dwiqggibn-Cn Itching 02/27/2013 Bilateral leg numbness Neuromuscular Blockers, [...] Additional history exists Results Not on fileafter 11/09/2018 Insurance Type Payer Benefit Subscriber ID Effective Phone Address Plan / Dates Group [facility] xxxxxxxxx 2015- [phone] P [address]O. [facility] Present [id number] [facility] [address] [facility] xxxxxxxxx 2015- [phone] P .O. [facility] Present [id number] [place] [address]
--- OUTSIDE RECORDS SUMMARY | 2019-11-10 19:55 | XMS REPORT | Continuity of Care Document ---
Author Author [facility] [employer] [employer] Address Unknown Phone Unavailable Care Team Providers Care Painter Structural Steel Name Role Phone Dreampod Information Exchange Unavailable Un available Problems Problem [...] Active 40 MG Orally Once a day [facility] Diovan HCT 1 tablet Orally Active 80-12.5 MG Orally Once a day [facility] Atenolol 1 tablet Orally Active 25 MG Orally [facility] Allergies, Adverse Reactions, Alerts Substance Category Reaction Severity Reaction type Status Date Reported Comments Source Penicillin Adverse Reaction Info Not Available Adverse Reaction Active 10/19/2017 Robbin Greshammed sulfa Adverse Reaction Info Not Available Adverse Reaction Active 10/19/2017 med [facility] Iodine Adverse Reaction Info Not Available Adverse Reaction Active 10/19/2017 med med steroids Adverse Reaction Info Not Available Adverse Reaction [facility]19[facility]2017 [facility] No Data Provided for This [...]
--- OUTSIDE RECORDS SUMMARY | 2019-11-10 19:55 | XMS REPORT | Clinical Summary ---
Author Author JOHAN 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] External Ris In - 08/04/2019 2:51 PM 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 DATE OF TEST: 08-04-2019 DATE OF REPORT: 08-04-2019 [id number] ACC: [id number] Start: 1349 Stop: 1421 ICD-10: R56.9 CPT Code: 39110 HISTORY: 64 yo female here for psychogenic [...] City/State/Zipcode Ph one Number GE RIS after 11/09/2018 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
--- OUTSIDE RECORDS SUMMARY | 2019-11-10 19:56 | XMS REPORT ---
Author Author [facility] t Organization [facility] Address [facility] [place] [address] Phone Unavailable Care Team Providers Care Manager Of Drilling Name Role Phone NONSTAFF PCP Unavailable Anastasia ASENCIO, Carlyn Wong Attphys LAVONNE SAHNI Attphys Unavailable Doctor Unassigned, Name No Attphys Unavailable Draw, [facility] Attphys Unavailable Chito ZAZUETA, Benny Bruno Attphys Unavailable Jaye ASENCIO, Dakotah Rowland Attphys KIANNA JACOB Attphys Unavailable DILLAN IBRAHIM Attphys Unavailable ABBY AGUILARBORAYMOND Attphys Unavailable MACO DODD Attphys Unavailable KIANNA JACOB Admphys Unavailable ABBY AGUILARBORAYMOND Admphys Unavailable MACO DODD Admphys Unavailable Payers Payer Name Policy Type Policy Number Effective Date Expiration Date [facility] Excha [id number] 2018 00:0 0:00 [facility] Problems Condition Name Condition Details Condition Category Status Onset Date Resolution Date Last Treatment Date Treating Clinician Comments Source Other chest pain Other chest pain Disease Active 2018-05-08 00:00:00 Porter Emanuel Psychogenic nonepileptic seizure Psychogenic nonepileptic seizur e Disease Active 2018-04-20 00:00:00 [place] [facility] Seizure Seizure Disease Active 2018-01-23 00:00:00 Porter Emanuel Left sided numbness Left sided numbness Disease Active 2018-01-20 00:00 :00 Porter Emanuel Urinary tract infection without hematuria Urinary trac t infection without hematuria Disease Active 2017-11-25 00:00:00 [facility] Seizure Seizure Problem Active 2016-01-24 00:00:00 [facility] Angina pectoris Angina pectoris Problem Active 2015-12-23 00:00:00 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 URI (upper respiratory infection) URI (upper respiratory infecti on) Disease Active 2015-03-29 00:00:00 [employer] JARON (generalized anxiety disorder) JARON (generalized anxiety diso rder) Disease Active 2014-12-19 00:00:00 [facility] [employer] [facility] Osteopenia- 2014 - to review next visit with pt O steopenia- 2014 - to review next visit with pt Disease Active 2014-12-06 00:00:00 [facility] Knee pain Knee pain Disease Active 2014-06-10 00:00:00 [facility] Diverticulosis; int hemorrhoids per colonoscopy 10/2013 Diverticulosis; int hemorrhoids per colonoscopy 10/2013 Disease Active 2014-05-20 00:00:00 [facility] Asthma Asthma Disease Active 2014-04-10 00:00:00 [facility] Glaucoma suspect Glaucoma suspect Disease Active 2013-12-13 00:00:00 [facility] Dry eye syndrome Dry eye syndrome Disease Active 2013-12-13 00:00:00 [facility] Glaucoma Glaucoma Disease Active 2013-10-13 00:00:00 [facility] Cyst- 1 cm- rt forearm ; non tender Cyst- 1 cm- rt forearm ; non tender Disease Active 2013-10-13 00:00:00 [facility] Bladder spasm Bladder spasm Disease Active 2013-01-19 00:00:00 [facility] Multiple drug allergies Multiple drug allergies Disease Active 2012-11-21 00:00:00 [facility] HISTORY OF HYSTERECTOMY/ BSO; endometriosis HISTORY OF HYSTERECTOMY/ BSO; endometriosis Disease Active 2012-08-23 00:00:00 [facility] Interstitial cystitis Interstitial cystitis Disease Active 201 08-20-21 00:00:00 [facility] Fatty liver Fatty liver Disease Active 2012-08-12 00:00:00 [facility] Hearing impaired- since , ; had tubes early; 1979 last hearing evaluation Hearing impaired- since , ; had tubes early; 1979 last hearing evaluation Disease Active 2012-07-29 00:00:00 [facility] Caregiver stress- daughter 28 yr with TB I needing help and has sz history- pt finds difficult to handle sz Caregiver stress- daughter 28 yr with TB I needing help and has sz history- pt finds difficult to handle sz Disease Ac tive 2012-07-29 00:00:00 [facility]alth Hyperlipidemia-on diet; rash itching wit h zocor ; started zetia as of 07/2013 - not taking as of 06/2014; allergic to fish/oil Hyperlipidemia-on diet; rash itching with zocor ; started zetia as of 07/2013 -not taking as of 06/2014; allergic to fish/oil Disease Active 2012-07-29 00:00:00 [facility] HTN (hypertension)- taking toprol HTN (hypertension)- taking top rol Disease Active 2012-07-29 00:00:00 [facility] H/O allergy to multiple drugs[facility]O allergy to multiple drugs- ref to senior quality methods specialist done Disease Active 2012-07-29 00:00:00 [facility] Non-cardiac chest pain Non-cardiac chest pain Problem Active [facility] Benign hypertensive heart disease without congestive h eart failure Benign hypertensive heart disease without congestive heart failure Active Problem 01/20/2018 Robbin Siegel Problem Active 2018-01-20 02:46 :35 Robbin Siegel Uncomplicated asthma, unspecified asthma severity Uncomplicated asthma, unspecified asthma severity Active Diagnosis 01/20/2018 Robbin Siegel Diagnosis Active 2018-01-20 02:46:35 A hmed Ahmed Reflux esophagitis Refl ux esophagitis Active Diagnosis 01/20/2018 Mpmed Ahmed Diagnosis Active 2018-01-20 02:46:35 Robbin Siegel PTSD (post-traumatic stress disorder) PTSD (post- traumatic stress disorder) Active Diagnosis 01/20/2018 Ahmed Ahmed Diagnosis Active 2018-01-20 02:46:35 Robbin Greshammed Palpitations Palp itations Active Diagnosis 01/20/2018 Ahmed Ahmed Diagnosis Active 2018-01-20 02:46:35 A hmed Mpmed Seizure Seiz ure Active Diagnosis 01/20/2018 Ahmed Ahmed Diagnosis Active 2018-01-20 02:46:35 Robbin Greshammed Precordial pain Prec ordial pain Active Diagnosis 01/20/2018 Mpmed Ahmed Diagnosis Active 2018-01-20 02:46:35 Robbin Siegel Allergies, Adverse Reactions, Alerts Allergy Name Allergy Type Status Severity Reaction(s) Onset Date Inacti ve Date Treating Clinician Comments Source shellfish derived FA Active SV 2018-04-25 00:00:00 [facility] BLOOD THINNERS DA Active U 2018-04-25 00:00:00 [facility] STEROIDS DA Active [place] 2018-04-25 00:00:00 [facility] shellfish derived DA Active SV 2018-04-25 00:00:00 [facility] Nitrofurantoin Monohyd/M-Cryst Propensity to adverse reactions to d rug Active 2018-04-20 00:00:00 rash Porter Emanuel Clindamycin Propensity to adverse reactions to drug Active Itching 2017-11-25 00:00:00 Porter cool sulfa sulfa Active Info Not Available 2017-10-19 00:00:00 [facility] Iodine Iodine Active Info Not Available 2017-10-19 00:00:00 [facility] steroids steroids Active Info Not Available 2017-10-19 00:00:00 [facility] Shellfish Containing Products Propensity to adverse reactions to dr ug Active Rash 2017-10-04 00:00:00 Porter Emanuel Lincomycin Propensity to adverse reactions to drug Active Rash 2017-09-15 00:00:00 Porter cool tetanus and diphtheria toxoids DA Active SV 2017-08-01 00: 00:00 [facility] penicillin G DA Active SV 2017-08-01 00:00:00 [facility] Sulfa (Sulfonamide Antibiotics) DA Active [place] 2016-06-17 00 :00:00 [facility] iodine DA Active [place] 2016-06-17 00:00:00 [facility] benzonatate DA Active [place] 2016-06-17 00:00:00 [facility] aminocaproic acid DA Active [place] 2016-06-17 00:00:00 [facility] clindamycin DA Active [place] 2016-06-17 00:00:00 [facility] ciprofloxacin DA Active [place] 2016-06-17 00:00:00 [facility] cyclobenzaprine DA Active [place] 2016-06-17 00:00:00 [facility] brimonidine DA Active [place] 2016-06-17 00:00:00 [facility] Tetanus Vaccines and Toxoid DA Active [place] 2016-06-17 00:00: 00 [facility] codeine DA Active [place] 2016-06-17 00:00:00 [facility] albuterol DA Active [place] 2016-06-17 00:00:00 [facility] STERIODS DA Active [place] 2016-06-17 00:00:00 [facility] Sulfa (Sulfonamide Antibiotics) Allergy to Substance Active Unkno wn 2016-05-16 00:00:00 [facility] Niacin Allergy to Substance Active Unknown 2016-05-16 00:00:00 [facility] Albuterol Allergy to Substance Active Unknown 2016-05-16 00:00:00 [facility] Neomycin Allergy to Substance Active Unknown 2016-05-16 00:00:00 [facility] Clindamycin Allergy to Substance Active Unknown 2016-05-16 00:00:0 0 [facility] Mupirocin Allergy to Substance Active Unknown 2016-05-16 00:00:00 [facility] Budesonide Allergy to Substance Active Unknown 2016-05-16 00:00:00 [facility] Buspirone Allergy to Substance Active Unknown 2016-05-16 00:00:00 [facility] Phenazopyridine Allergy to Substance Active Unknown 2016-05-16 00: 00:00 [facility] Fluticasone Allergy to Substance Active Unknown 2016-05-16 00:00:0 0 [facility] Citalopram Allergy to Substance Active Unknown 2016-05-16 00:00:00 [facility] Formoterol Allergy to Substance Active Unknown 2016-05-16 00:00:00 [facility] Mirtazapine Allergy to Substance Active Unknown 2016-05-16 00:00:0 0 [facility] Corticosteroids (Glucocorticoids) Propensity to adverse reac tions to drug Active Rash 2016-01-20 00:00:00 Unknown re action [facility] Iodine And Iodide Containing Products Propensity to adverse reactions to drug Active Shortness Of Breath 2016-01-20 00:00:00 Unknown reaction Porter [facility] Penicillins Propensity to adverse reactions to drug Active Shortness Of Breath 2016-01-20 00:00:00 Porter Emanuel Sulfa (Sulfonamide Antibiotics) Propensity to adverse reactions to drug Active Rash 2016-01-20 00:00:00 unknown Sujata gonzalez [facility] Tetanus Vaccines And Toxoid Propensity to adverse reactions to drug Active Rash 2016-01-20 00:00:00 Unknown reaction Halina chavarria [facility] phenylephrine HCl Allergy to Substance Active Unknown 2015-12-20 8 00:00:00 [facility] pseudoephedrine HCl Allergy to Substance Active Unknown 2015-12 00:00:00 [facility] iodine Allergy to Substance Active Unknown 2016-01-06 00:00:00 [facility] brimonidine tartrate Allergy to Substance Active Unknown 2016-01-06 00:00:00 [facility] Penicillin Allergy to Substance Active Unknown 2016-01-06 00:00:00 [facility] Tetanus Vaccines and Toxoid Allergy to Substance Active Unknown 2016-01-06 00:00:00 [facility] Shellfish Allergy to Substance Active Unknown 2016-01-06 00:00:00 [facility] Guaifenesin Allergy to Substance Active Unknown 2016-01-06 00:00:0 0 [facility] Misoprostol Allergy to Substance Active Unknown 2016-01-06 00:00:0 0 [facility] Alprazolam Allergy to Substance Active Unknown 2016-01-06 00:00:00 [facility] Codeine Allergy to Substance Active Unknown 2016-01-06 00:00:00 [facility] Hydrocodone Allergy to Substance Active Unknown 2016-01-06 00:00:0 0 [facility] Benzonatate Allergy to Substance Active Unknown 2016-01-06 00:00:0 0 [facility] Pilocarpine Allergy to Substance Active Unknown 2016-01-06 00:00:0 0 [facility] Pseudoephedrine Allergy to Substance Active Unknown 2016-01-06 00: 00:00 [facility] aminocaproic acid Allergy to Substance Active Unknown 2015-12-20 8 00:00:00 [facility] Prednisone Allergy to Substance Active Unknown 2016-01-06 00:00:00 [facility] Triamcinolone Allergy to Substance Active Unknown 2016-01-06 00:00 :00 [facility] Ibuprofen Allergy to Substance Active Unknown 2016-01-06 00:00:00 [facility] Naproxen Allergy to Substance Active Unknown 2016-01-06 00:00:00 [facility] Cephalexin Allergy to Substance Active Unknown 2016-01-06 00:00:00 [facility] Cefaclor Allergy to Substance Active Unknown 2016-01-06 00:00:00 [facility] Doxycycline Allergy to Substance Active Unknown 2016-01-06 00:00:0 0 [facility] Erythromycin base Allergy to Substance Active Unknown 2015-12-20 8 00:00:00 [facility] Sulfamethoxazole Allergy to Substance Active Unknown 2016-01-06 00:00:00 [facility] Nitrofurantoin Allergy to Substance Active Unknown 2016-01-06 00:0 0:00 [facility] Trimethoprim Allergy to Substance Active Unknown 2016-01-06 00:00: 00 [facility] Ciprofloxacin Allergy to Substance Active Unknown 2016-01-06 00:00 :00 [facility] Famotidine Allergy to Substance Active Unknown 2016-01-06 00:00:00 [facility] Cefuroxime Allergy to Substance Active Unknown 2016-01-06 00:00:00 [facility] Clarithromycin Allergy to Substance Active Unknown 2016-01-06 00:0 0:00 [facility] Simvastatin Allergy to Substance Active Unknown 2016-01-06 00:00:0 0 [facility] Metoprolol Allergy to Substance Active Unknown 2016-01-06 00:00:00 [facility] Azithromycin Allergy to Substance Active Unknown 2016-01-06 00:00: 00 [facility] Loratadine Allergy to Substance Active Unknown 2016-01-06 00:00:00 [facility] Fluvastatin Allergy to Substance Active Unknown 2016-01-06 00:00:0 0 [facility] Clemastine Allergy to Substance Active Unknown 2016-01-06 00:00:00 [facility] Fluoxetine Allergy to Substance Active Unknown 2016-01-06 00:00:00 [facility] Dicyclomine Allergy to Substance Active Unknown 2016-01-06 00:00:0 0 [facility] Flavoxate Allergy to Substance Active Unknown 2016-01-06 00:00:00 [facility] Diphenhydramine Allergy to Substance Active Unknown 2016-01-06 00: 00:00 [facility] Polymyxin b Allergy to Substance Active Unknown 2016-01-06 00:00:0 0 [facility] Ipratropium Allergy to Substance Active Unknown 2016-01-06 00:00:0 0 [facility] Latanoprost Allergy to Substance Active Unknown 2016-01-06 00:00:0 0 [facility] Fexofenadine Allergy to Substance Active Unknown 2016-01-06 00:00: 00 [facility] Brimonidine Allergy to Substance Active Unknown 2016-01-06 00:00:0 0 [facility] Zafirlukast Allergy to Substance Active Unknown 2016-01-06 00:00:0 0 [facility] Valsartan Allergy to Substance Active Unknown 2016-01-06 00:00:00 [facility] cerivastatin Allergy to Substance Active Unknown 2016-01-06 00:00: 00 [facility] Rofecoxib Allergy to Substance Active Unknown 2016-01-06 00:00:00 [facility] Latex Allergy to Substance Active Unknown 2016-01-06 00:00:00 [facility] Levocetirizine Allergy to Substance Active Unknown 2016-01-06 00:0 0:00 [facility] Neuromuscular Blockers, Steroidal Allergy to Substance Active Unk nown 2015-06-17 00:00:00 [facility] Acetaminophen Allergy to Substance Active Unknown 2015-06-17 00:00 :00 [facility] Diclofenac Allergy to Substance Active Unknown 2015-06-17 00:00:00 [facility] Cyclobenzaprine Allergy to Substance Active Unknown 2015-06-17 00: 00:00 [facility] ALBUTEROL PILL FORM Allergy to Substance Active Unknown 2015-05 00:00:00 [facility] STEROIDS Allergy to Substance Active Unknown 2015-06-17 00:00:00 [facility] Zafirlukast Propensity to adverse reactions to drug Active 2014-03-08 00:00:00 [facility] Flavoxate Hcl Propensity to adverse reactions to drug Active 2014-03-08 00:00:00 [facility] Brimonidine Tartrate Propensity to adverse reactions to drug Active 2013-12-13 00:00:[address] [facility] Latanoprost Propensity to adverse reactions to drug Active 2013-12-13 00:00:[address] [facility] Latex, Natural Rubber Propensity to adverse reactions to drug Active 2013-03-10 00:00:00 [facility] Cerivastatin Propensity to adverse reactions to drug Active Rash, Itching 2013-02-27 00:00:00 [facility] Blfsmkuo-Oemto[address]a-Ln Propensity to adverse reactions to drug Active Itching 2013-02-27 00:00:00 [facility] Fluoxetine Propensity to adverse reactions to drug Active Rash, Itching 2012-09-21 00:00:00 laryngoedema [facility] Metoprolol Tartrate Propensity to adverse reactions to drug Active Rash 2012-08-02 00:00:00 [facility] Tetanus Vaccines And Toxoid Propensity to adverse reactions to drug Active Rash, Itching, Swelling 2012-08-02 00:00:00 [facility] went to ED for allergic reaction to Tdap. [facility] Fexofenadine Propensity to adverse reactions to drug Active Rash, Itching 2012-07-29 00:00:00 [facility] Diclofenac-Misoprostol Propensity to adverse reactions to drug Acti ve Rash, Itching 2012-07-29 00:00:00 [facility] Sulfamethoxazole-Trimethoprim Propensity to adverse reactions to dr ug Active Rash, Itching 2012-07-29 00:00:00 [facility] Diphenhydramine Hcl Propensity to adverse reactions to drug Active Breathing problems, Rash, Itching 2012-07-29 00:00:00 [facility] Dicyclomine Propensity to adverse reactions to drug Active Rash, Itching 2012-07-29 00:00:00 [facility] Clarithromycin Propensity to adverse reactions to drug Active Rash, Itching 2012-07-29 00:00:00 [facility] Cefaclor Propensity to adverse reactions to drug Active Rash, Itching 2012-07-29 00:00:00 [facility] Cefuroxime Axetil Propensity to adverse reactions to drug Active Rash, Itching 2012-07-29 00:00:00 [facility] Cephalexin Propensity to adverse reactions to drug Active Rash, Itching, Swelling 2012-07-29 00:00:00 [facility] Ciprofloxacin Propensity to adverse reactions to drug Active Rash, Itching 2012-07-29 00:00:00 [facility] Loratadine Propensity to adverse reactions to drug Active Rash, Itching, Angioedema 2012-07-29 00:00:00 [facility] Codeine Propensity to adverse reactions to drug Active Rash, Itching 2012-07-29 00:[facility] Propensity to adverse reactions to drug Active Rash, Itching 2012-07-29 00:00:00 [facility] Doxycycline Propensity to adverse reactions to drug Active Itching 2012-07-29 00:00:00 [facility] Phenylephrine-Guaifenesin Propensity to adverse reactions to drug A ctive Rash, Itching 2012-07-29 00:00:00 [facility] katty Erythromycin Lactobionate Propensity to adverse reactions to drug A ctive Rash, Itching 2012-07-29 00:00:00 [facility] Erythromycin (Bulk) Propensity to adverse reactions to drug Active Rash, Itching, Angioedema 2012-07-29 00:00:00 [facility] Iodine And Iodide Containing Products Propensity to adverse reactions to drug Active Hives, Itching, Swelling 2012-07-29 00:00:00 [facility] Fluvastatin Propensity to adverse reactions to drug Active Rash, Itching 2012-07-29 00:00:00 [facility] Hydrocod[facility]-Acetaminophen Propensity to adverse reactions to drug A ctive Rash, Itching 2012-07-29 00:00:00 [facility] katty Nitrofurantoin Monohyd/M-Cryst Propensity to adverse reactions to d rug Active Rash, Itching 2012-07-29 00:00:00 [facility] Nitrofurantoin Macrocrystalline Propensity to adverse reactions to drug Active Rash, Itching 2012-07-29 00:00:00 [facility] Ibuprofen Propensity to adverse reactions to drug Active Rash, Itching 2012-07-29 00:00:00 [facility] Guaifenesin Propensity to adverse reactions to drug Active Rash, Itching 2012-07-29 00:00:00 [facility] Triamcinolone Acetonide Propensity to adverse reactions to drug Act frederick Itching, Other 2012-07-29 00:00:[address] [facility] Neuromuscular Blockers, Steroidal Propensity to adverse reac tions to drug Active Other 2012-07-29 00:00:[address] [facility] Penicillins Propensity to adverse reactions to drug Active Anaphylaxis 2012-07-29 00:00:00 [facility] Famot[facility] Propensity to adverse reactions to drug Active Rash, Itching 2012-07-29 00:00:00 [facility] Prednisone Propensity to adverse reactions to drug Active Rash, Itching 2012-07-29 00:00:00 [facility] Shellfish Containing Products Propensity to adverse reactions to dr ug Active Hives, Itching, Swelling 2012-07-29 00:00:00 [facility] Sulfa (Sulfonamide Antibiotics) Propensity to adverse reactions to drug Active Rash, Itching, Swelling 2012-07-29 00:00:00 [facility] Clemastine Propensity to adverse reactions to drug Active Rash, Itching 2012-07-29 00:00:00 [facility] Rofecoxib Propensity to adverse reactions to drug Active Rash, Itching 2012-07-29 00:00:00 [facility] Alprazolam Propensity to adverse reactions to drug Active Rash, Itching 2012-07-29 00:00:00 [facility] Levocetirizine Propensity to adverse reactions to drug Active Rash, Itching 2012-07-29 00:00:00 [facility] Azithromycin Propensity to adverse reactions to drug Active Rash, Itching 2012-07-29 00:00:00 itching of the throa t, tightness in the neck, chest pain, and heavy breathing; last dose was 04/02/2015; stated she only took [address] [facility] Simvastatin Propensity to adverse reactions to drug Active Rash, Itching 2012-07-29 00:00:00 [facility] Family History Family Member Diagnosis Comments Start Date Stop Date Source Natural brother Cancer [facility] ethodist Natural brother Lung cancer Mcdaniel Anglican Natural father Hearing loss Mcdaniel Anglican Natural father Heart disease Mcdaniel Anglican Natural father Hyperlipidemia [place] [facility] Natural father Vision loss [facility] ethodist Natural father Cancer [facility] Natural father Diabetes [facility] Natural mother Dementia [facility] thodist Natural mother Hearing loss Mcdaniel Anglican Natural mother Heart disease Mcdaniel Anglican Natural mother Hyperlipidemia [place] [facility] Natural mother Mental illness [place] [facility] Natural sister Multiple sclerosis [facility] Social History Social Habit Start Date Stop Date Quantity Comments Source Sex Assigned At [facility] Alcohol intake 2016-01-09 00:00:00 2016-01-09 00:00:00 [facility] Smoking Status Start Date Stop Date Source Never smoker [facility] Medications Ordered Medication Name Filled Medication Name [...] (six) hours as needed (RESCUE INHALER). Porter Methtracy king acetaminophen (TYLENOL) 500 MG tablet 2018-05-11 18:27:00 Y es 500mg Q6H Take 500 mg by mouth every 6 (six) hours as needed for mild pain. Porter Emanuel sertraline (ZOLOFT) 100 MG tablet 2018-05-11 18:27:00 Yes 100mg QD Take 100 mg by mouth nightly. Porter Methtracy king gabapentin (NEURONTIN) 300 mg capsule 2018-05-11 18:27:00 Yes 300mg Q.[id number] Take 300 mg by mouth 3 (three) [...] MG capsule 2018-05-11 18:27:00 Y es 10mg Q.[id number] Take 10 mg by mouth 3 (three) times a day. Porter Emanuel amLODIPine (NORVASC) 5 mg tablet 2018-05-11 18:27:00 Yes 5mg QD Take 5 mg by mouth daily. Porter Emanuel hydroCHLOROthiazide (HYDRODIURIL) 25 MG tablet 2018-05-11 [...] needed Robbin Siegel Ativan 2018-01-20 02:46:35 Yes Robbin Greshammed 1 tablet at bedtime as needed Robbin Siegel Sertraline HCl 2018-01-20 02:46:35 Yes Robbin Greshammed 1 tablet Robbin Siegel Montelukast Sodium 2018-01-20 02:46:35 Yes Ahmed Mpmed 1 tablet in the evening Robbin Siegel Advair Diskus 2018-01-20 02:46:35 Yes Robbin Greshammed not defined Robbin Siegel Metoprolol 2018-01-20 02:46:35 Yes Robbin Siegel no t defined Ahmed Mpmed Amlodipine Besylate 2018-01-20 02:46:35 Yes Robbin Greshammed 1 tablet Robbin Siegel Atenolol 2018-01-20 02:46:35 Yes Robbin Greshammed 1 ta blet Robbin Siegel HydrOXYzine HCl 2018-01-20 02:46:35 Yes Mpmed Ahmed 1 tablet 3 times a day and 2 tablets at bed time Robbin Lundy ed Lorazepam 2018-01-20 02:46:35 Yes Robbin Siegel 1 t ablet as needed Robbin Siegel Omeprazole 2018-01-20 02:46:35 Yes Robbin Greshammed 1 capsule Robbin Siegel Diovan HCT 2018-01-20 02:46:35 Yes Robbin Greshammed 1 tablet Robbin Siegel Atenolol 2018-01-20 02:46:35 Yes Ahmed Ahmed 1 ta blet Mpmed Ahmed losartan (COZAAR) 50 MG tablet 2017-11-13 00:00:00 Yes 50mg QD Take 50 mg by mouth every morning. Mcdaniel Methtracy dist cetirizine (ZyrTEC) 10 MG tablet 2017-11-11 00:00:00 Yes 10mg QD Take 10 mg by mouth every morning. Mcdaniel thodist VITAMIN D2 50,000 unit capsule 2017-11-11 00:00:00 Yes [id number] Q1W Take 50,000 Units by mouth every 7 days. Pt takes on Wednesday Mcdaniel Anglican hydrOXYzine (ATARAX) 25 MG tablet 2017-11-11 00:00:00 Yes 25mg QD Take 25 mg by mouth every morning. Mcdaniel Me costast LORAZepam (ATIVAN) 0.5 MG tablet 2017-11-01 00:00:00 Yes 1.5mg Q.[id number] Take 1.5 mg by mouth 3 (three) times a day. Mcdaniel Anglican montelukast (SINGULAIR) 10 mg tablet 2017-10-31 00:00:00 Ye s 10mg QD Take 10 mg by mouth every evening. [facility] ADVAIR HFA 115-21 mcg/actuation inhaler 2017-09-25 00:00:00 Yes 2{puff} Q.5D Inhale 2 puffs 2 (two) times a day. Mcdaniel Anglican Diovan HCT 2017-09-20 00:00:00 Yes Ahmed Ahmed 1 tablet Mpmed Mpmed clonazePAM (KLONOPIN) 1 mg tablet 2016-01-09 00:00:00 Yes JARON (generalized anxiety disorder) 1mg Q.5D Take 1 tablet by mouth [address] [facility] Amlodipine Besylate (Norvasc) 5 Mg Tab, 5 Mg Oral Amlo dipine Besylate (Norvasc) 5 Mg Tab, 5 Mg Oral 2015-12-25 00:00:00 2019-05-30 00:00:00 No Ancelmo mcgee Md 5 Daily [facility] Aspirin 81 Mg Tabec, 81 Mg Oral Aspirin 81 Mg Tabec, 81 Mg O ral 2015-12-25 00:00:00 2019-05-30 00:00:00 No Ancelmo Vazquez Md 81 Every Mo rning [facility] Colesevelam Hcl (Welchol) 625 Mg Tablet, 1875 Mg Oral Colesevelam Hcl (Welchol) 625 Mg Tablet, 1875 Mg Oral 2015-12-25 00:00:00 2019-05-30 00:00:00 No Ancelmo Vazquez Md 1875 Twice Daily With Meals [facility] Pantoprazole Sod (Protonix) 40 Mg/Ml Susp, 40 Mg Oral Pantoprazole Sod (Protonix) 40 Mg/Ml Susp, 40 Mg Oral 2015-12-25 00:00:00 2019-05-30 00:00:00 No Ancelmo Vazquez Md 40 Daily [facility] theophylline (THEOCHRON) 100 mg extended release tablet 2015-05-30 00:00:00 Yes Asthmatic bronchitis, severe persistent, with acute ex acerbation 100mg QD Take 1 tablet by mouth daily. [facility] hydrOXYzine (ATARAX) 25 mg tablet 2015-05-23 00:00:00 Yes Anxiety state, unspecified Take 1 tab in the morning and 2 tabs at bedtim e. [facility] artificial tears (LACRI-LUBE) 56.8-42.5 % Oint 2015-05-17 00 :00:00 Yes Eye pain, bilateral Instill in each eye As directed. [facility] traMADol (ULTRAM) 50 mg tablet 2015-02-28 00:00:00 Yes Right-sided low back pain without sciatica 50mg Take 1 tablet by mouth every 6 hours as needed for Pain. [facility] Nebulizer & Compressor For Neb Marie 2015-01-14 00:00:00 Yes Asthma by Misc.(Non-Drug; Combo Route) route. [facility] nystatin (NYSTOP) 100,000 unit/gram topical powder 2014-12 00:00:00 Yes Intertrigo Apply to affected area [address] [facility] nystatin (MYCOSTATIN) topical cream 2015-01-08 00:00:00 Yes Intertrigo Q.5D Apply to affected area [address] [facility] traMADol (ULTRAM) 50 mg tablet 2014-12-03 00:00:00 Yes Caries 50mg Take 1 tablet by mouth every 6 hours as needed for Pain. [facility] metoprolol (TOPROL XL) 50 mg extended release tablet 2 00:00:00 Yes HTN (hypertension) 50mg QD Take 1 tablet by mouth daily. [facility] cyclobenzaprine (FLEXERIL) 10 mg tablet 2014-11-22 00:00:00 Yes Musculoskeletal pain 10mg Take 1 tablet by mo ut 2 times daily as needed for Muscle Spasms. [facility] naproxen (NAPROSYN) 375 mg tablet 2014-11-06 00:00:00 Ye s Back pain 375mg Take 1 tablet by mouth 2 times daily as needed for Pain. [facility] albuterol (PROVENTIL) 2.5 mg /3 mL (0.083 %) nebulizer solut ion 2014-09-27 00:00:00 Yes Asthma 2.5mg Inhale 3 m L by mouth every 4 hours as needed for Wheezing or Shortness of Breath. [facility] ezetimibe (ZETIA) 10 mg tablet 2014-09-19 00:00:00 Yes 10mg QD Take 1 tablet by mouth daily. [facility] aminocaproic acid (AMICAR) 25 % syrup 2014-08-22 00:00:00 Y es take 16ml by mouth swish around in your mouth for 2 minutes and then spit out. take every 4 hours for 1 to [address] [facility] albuterol (PROVENTIL HFA) 90 mcg/actuation inhaler 2014-05 00:00:00 Yes Asthma 2{puff} Inhale 2 Puffs by mouth 4 ti mes daily as needed for Wheezing. [facility] EPINEPHrine (EPIPEN 2-ERIC) 0.3 mg/0.3 mL (1:1,000) injection 2014-05-30 00:00:00 Yes Itching .3mg Inject 0.3 mL intramuscularly as needed for Anaphylaxis. [facility] benzonatate (TESSALON PERLES) 100 mg capsule 2014-05-30 00:0 0:00 Yes Sorethroat 100mg Take 1 capsule by mo ut 3 times daily as needed for up to [address] doses [address] [facility] ipratropium (ATROVENT) 0.02 % nebulizer solution 2014-05-03 00:00:00 Yes Asthmatic bronchitis .5mg Inhale 2.5 mL by mouth [address] [facility] Nebulizer & Compressor For Neb Marie 2014-04-10 00:00:00 Yes Asthma by Misc.(Non-Drug; Combo Route) route. [facility] albuterol (PROVENTIL) 2 mg tablet 2014-02-22 00:00:00 Yes Asthmatic bronchitis 2mg Take 1 tablet by sofia th 3 times daily as needed for Other (prn for shortness of breath). [facility] pilocarpine (ISOPTO CARPINE) 1 % ophthalmic solution 2 00:00:00 Yes Glaucoma suspect 1[drp] Instill 1 Drop in each eye [address] [facility] brimonidine (ALPHAGAN P) 0.15 % ophthalmic solution 10-27 00:00:00 Yes 1[drp] Q.5D Instill 1 Drop in each eye [address] [facility] latanoprost (XALATAN) 0.005 % ophthalmic solution 2013-10-17 00:00:00 Yes instill 1 drop into both eyes every night at be dtime [facility] peak flow meter Marie 2013-10-13 00:00:00 Yes Asth ma by [facility].(Non-Drug; Combo Route) route. [facility] niacin, antihyperlipidemic, (NIASPAN) 500 mg extended releas e tablet 2013-04-26 00:00:00 Yes Hyperlipidemia 500mg Take 1 tablet by mouth at bedtime. [facility] Cetirizine Hcl 10 Mg Tablet Cetirizine Hcl 10 Mg Tablet Yes Daily [facility] Dicyclomine Hcl 20 Mg Tablet Dicyclomine Hcl 20 Mg Tablet Y es 20 Daily [facility] Famotidine 20 Mg Tab Famotidine 20 Mg Tab Yes 20 Bedtime [facility] Gabapentin 400 Mg Capsule Gabapentin 400 Mg Capsule Yes 400 Three Times A Day [facility] Hydrochlorothiazide 25 Mg Tablet Hydrochlorothiazide 25 Mg Tablet Yes 25 Daily [facility] Mirtazapine 15 Mg Tab Mirtazapine 15 Mg Tab Yes 7.5 Bedtime [facility] Montelukast Sodium 10 Mg Tablet Montelukast Sodium 10 Mg Tablet Yes 10 Daily [facility] Omeprazole 40 Mg Capsule. Omeprazole 40 Mg Capsule. Yes Daily [facility] Sertraline Hcl 50 Mg Tablet Sertraline Hcl 50 Mg Tablet Yes 25 Daily [facility] Smx/Tmp Smx/Tmp Yes 1 Twice A Day [facility] Amitriptyline Hcl 10 Mg Tablet, 10 Mg Oral Amitriptyli ne Hcl 10 Mg Tablet, 10 Mg Oral 2019-06-07 00:00:00 No 10 Bedtime [facility] Hydroxyzine Hcl 25 Mg Tablet, 25 Mg Oral Hydroxyzine H cl 25 Mg Tablet, 25 Mg Oral 2019-06-07 00:00:00 No 25 Twice A Day [facility] Mirtazapine 15 Mg Tab, 15 Mg Oral Mirtazapine 15 Mg Tab, 15 Mg O ral 2019-06-07 00:00:00 No 15 Bedtime [facility] Albuterol Sulfate (Proventil Hfa) 6.7 Gm Hfa.aer.ad, 2 Dose Inhalation Albuterol Sulfate (Proventil Hfa) 6.7 Gm Hfa.aer.ad, 2 Dose Inhalation 2019-05-30 00:00:00 No 2 Four Times Daily as needed for Wheezing [facility] Albuterol Sulfate (Proventil Hfa) 6.7 Gm Hfa.aer.ad, A lbuterol Sulfate (Proventil Hfa) 6.7 Gm Hfa.aer.ad, 2019-05-30 00:00:00 No [facility] Albuterol Sulfate (Proventil Hfa) 6.7 Gm Hfa.aer.ad, A lbuterol Sulfate (Proventil Hfa) 6.7 Gm Hfa.aer.ad, 2019-05-30 00:00:00 No [facility] Atorvastatin Calcium 10 Mg Tablet, 10 Mg Oral Atorvast atin Calcium 10 Mg Tablet, 10 Mg Oral 2019-05-30 00:00:00 No 10 Today At 9:0 0PM [facility] Baclofen 10 Mg Tablet, 10 Mg Oral Baclofen 10 Mg Tablet, 10 Mg O ral 2019-05-30 00:00:00 No 10 Bedtime [facility] Carboxymethylcellulos/Glycerin (Refresh Optive Eye Noah ps) 15 Ml Drops, Carboxymethylcellulos/Glycerin (Refresh Optive Eye Drops) 15 Ml Drops, 2019-05-30 00:00:00 No [facility] Clonazepam 1 Mg Tablet, 1 Mg Oral Clonazepam 1 Mg Tablet, 1 Mg O ral 2019-05-30 00:00:00 No 1 Twice A Day [facility] Clonazepam 0.5 Mg Tablet, 0.5 Mg Oral Clonazepam 0.5 Mg Tablet, 0.5 Mg Oral 2019-05-30 00:00:00 No .5 Daily [facility] Clonazepam 1 Mg Tablet, 1 Mg Oral Clonazepam 1 Mg Tablet, 1 Mg O ral 2019-05-30 00:00:00 No 1 Bedtime [facility] Fluticasone/Salmeterol (Advair Hfa 115-2 1 Mcg Inhaler) 12 Gm Hfa.aer.ad, 1 Inh Inhalation Fluticasone/Salmeterol (Advair Hfa 115-2 1 Mcg Inhaler) 12 Gm Hfa.aer.ad, 1 Inh Inhalation 2019-05-30 00:00:00 No 1 Twice A Day [facility] Fluticasone/Salmeterol (Advair Hfa 115-2 1 Mcg Inhaler) 12 Gm Hfa.aer.ad, 1 Inh Inhalation Fluticasone/Salmeterol (Advair Hfa 115-2 1 Mcg Inhaler) 12 Gm Hfa.aer.ad, 1 Inh Inhalation 2019-05-30 00:00:00 No 1 Twice A Day [facility] Fluticasone/Salmeterol (Advair Hfa 115-21 Mcg Inhaler) 12 Gm Hfa.aer.ad, Fluticasone/Salmeterol (Advair Hfa 115-21 Mcg Inhaler) 12 Gm Hfa.aer.ad, 2019-05-30 00:00:00 No [facility] Hydroxyzine Hcl 25 Mg Tablet, 50 Mg Oral Hydroxyzine H cl 25 Mg Tablet, 50 Mg Oral 2019-05-30 00:00:00 No 50 Bedtime [facility] Hydroxyzine Hcl 25 Mg Tablet, 25 Mg Oral Hydroxyzine H cl 25 Mg Tablet, 25 Mg Oral 2019-05-30 00:00:00 No 25 Daily [facility] Metoprolol Succinate 50 Mg Tab.er.24h, 50 Mg Oral Meto prolol Succinate 50 Mg Tab.er.24h, 50 Mg Oral 2019-05-30 00:00:00 No 50 D aily [facility] Montelukast Sodium 10 Mg Tablet, 10 Mg Oral Montelukas t Sodium 10 Mg Tablet, 10 Mg Oral 2019-05-30 00:00:00 No 10 Daily [facility] Omeprazole 40 Mg Capsule.dr, 40 Mg Oral Omeprazole 40 Mg Cap prateek.dr, 40 Mg Oral 2019-05-30 00:00:00 No 40 Daily [facility] Theophylline Anhydrous (Willam-24) 100 Mg Cap.er.24h, 10 0 Mg Oral Theophylline Anhydrous (Willam-24) 100 Mg Cap.er.24h, 100 Mg Oral 2019-05-30 00:00:0 0 No 100 Daily [facility] Immunizations Ordered Immunization Name Filled Immunization Name Date Status Comments Source FLUCELVAX QUAD PF 2018-04-21 00:00:00 Completed [facility] Influenza Vaccine 2015-05-30 00:00:[address] [facility] Ipratropium 0.02t (2.5ml) 2014-07-26 00:00:[address] [facility] Tdap Tetanus, diphtheria, acellular pertussis Vaccine 2012-07-29 00:00:[address] [facility] Vital Signs Vital Name Observation Time Observation Value Comments Source Weight 2017-10-19 18:30:00 Ahmed Ah med Heart Rate 2017-10-19 18:30:00 Ahmed Ah med Diastolic (mm Hg) 2017-10-19 18:30:00 [facility] ed Ahmed Systolic (mm Hg) 2017-10-19 18:30:00 Ahme d Ahmed Weight 2017-05-20 19:15:00 Ahmed Ah med Heart Rate 2017-05-20 19:15:00 Ahmed Ah med Diastolic (mm Hg) 2017-05-20 19:15:00 [facility] ed Ahmed Systolic (mm Hg) 2017-05-20 19:15:00 Ahme d [...] Date / Time Performed Performing Clinician [facility] e Computed tomography of brain without radiopaque contrast 201 03-02-18 00:00:00 KIANNA JACOB [facility] EGD (esophagogastroduodenoscopy) 2019-06-06 00:00:00 ANGELATNKARTIK Lambert [facility] Plan of Care Planned Activity Planned Date Details Comments Source Future Scheduled Test 2020-01-20 00:00:00 INFLUENZA VACCINE [code = INFLUENZA VACCINE] [facility] Scheduled Test 2016-08-03 00:00:00 Cervical Cancer Sc rn (3 Yrs) [code = Cervical Cancer Scrn (3 Yrs)] [facility] Scheduled Test 2016-03-11 00:00:00 Breast Cancer Scrn (Yearly) [code = Breast Cancer Scrn (Yearly)] [facility] Scheduled Test 2014-07-24 00:00:00 Colorectal Cancer Scrn Annual (FIT/FOBT) Age 50 to 75 [code = Colorectal Cancer Scrn Annual (FIT/FOBT) Age 50 to 75] [facility] Scheduled Test 2006-02-23 00:00:00 BREAST CANCER SCRE ENING [code = BREAST CANCER SCREENING] [facility] Scheduled Test 2006-02-23 00:00:00 COLONOSCOPY SCREEN ING [code = COLONOSCOPY SCREENING] [facility] Scheduled Test 2006-02-23 00:00:00 SHINGLES VACCINES (#1) [code = SHINGLES VACCINES (#1)] [facility] Scheduled Test 1977-02-23 00:00:00 Screening for lc gnant neoplasm of cervix (procedure) [code = 109395329] [facility] t Encounters Start Date/Time End Date/Time Encounter Type Admission Type Attendi [facility] Care Department Encounter ID Source 2019-11-10 19:55:31 Outpatient MHIEALT MHIEALT [id number] [facility] 2019-11-09 13:14:21 2019-11-09 13:44:21 Telemedicine Visit Anastasia Marvin Bellamybala [facility] [id number] 2019-11-08 00:00:00 2019-11-08 00:00:00 Orders Only D octor Unassigned, [place] [facility] [id number] 2019-11-06 09:46:57 2019-11-06 10:01:57 Paleontological Helper Visit Chris [facility] [id number] 2019-11-05 00:00:00 2019-11-05 00:00:00 Nurse Triage Kiana Dale [facility] [id number] 2019-10-26 07:32:56 2019-11-01 16:04:39 Telemedicine Visit Kashif Cee [facility] [id number] 2019-06-06 15:55:00 2019-06-07 18:13:00 Discharged Inpatient (obs) [address] [facility] [id number] [facility] 2019-03-08 13:44:00 2019-03-08 13:44:00 Emergency E MHSE MHSE [id number] [facility]SE 2017-10-19 13:30:00 2017-10-19 13:30:00 Outpatient [facility] [id number] eClinicalWorks 2017-09-22 09:18:00 2017-09-22 09:18:00 Outpatient [facility] [id number] eClinicalWorks 2017-05-20 13:15:00 2017-05-20 13:15:00 Outpatient [facility] [id number] eClinicalWorks 2017-03-18 13:45:00 2017-03-18 13:45:00 Outpatient [facility] [id number] eClinicalWorks 2017-02-11 14:15:00 2017-02-11 14:15:00 Outpatient [facility] [place] [id number] [employer]ues[employer] Results Test Description Test Time Test Comments Results Result Comments Source CT LUMBAR SPINE WO 2019-11-08 18:52:00 [place] [address] Patient Name: FIDELINA SARMIENTO MR #: [id number] : 1955 Age/Sex: 64/F Req #: [id number] Adm Physician: Ordered by: LAVONNE RAMON STEM DRYER MAINTAINER Report #: [id number] Location: ER Room/Bed: Procedure: [id number] CT/CT LUMBAR SPINE WO Exam Date: 11/08/19 [...] DAREN on 11/08/191854 COPY TO: LAVONNE RAMON STEM DRYER MAINTAINER CT CERVICAL SPINE WO 2019-11-08 18:46:00 [place] [address] Patient Name: FIDELINA SARMIENTO MR #: [id number] : 1955 Age/Sex: 64/F Req #: [id number] Adm Physician: Ordered by: LAVONNE RAMON STEM DRYER MAINTAINER Report #: [id number] Location: ER Room/Bed: Procedure: [id number] CT/CT CERVICAL SPINE WO Exam Date: 11/08/19 [...] RAMON NP CT BRAIN WO 2019-11-08 18:46:00 [facility] [address] [place] [address] Patient Name: FIDELINA SARMIENTO MR #: [id number] : 1955 Age/Sex: 64/F Req #: [id number] Adm Physician: Ordered by: LAVONNE RAMON STEM DRYER MAINTAINER Report #: [id number] Location: ER Room/Bed: Procedure: [id number] CT/CT BRAIN WO Exam Date: 11/08/19 Exam [...] DAREN on 11/08/191850 COPY TO: LAVONNE RAMON STEM DRYER MAINTAINER PELVIS AP 1-2 VIEWS 2019-11-08 18:34:00 [place] [address] Patient Name: FIDELINA SARMIENTO MR #: [id number] : 1955 Age/Sex: 64/F Req #: [id number] [facility] Physician: Ordered by: LAVONNE RAMON STEM DRYER MAINTAINER Report #: [id number] Location: ER Room/Bed: Procedure: [id number] DX/PELVIS AP 1-2 VIEWS Exam Date: 11/08/19 Exam Time: 0 REPORT STATUS: Signed EXAMINATION: AP pelvis Film [...] DAREN on 11/08/191834 COPY TO: LAVONNE RAMON STEM DRYER MAINTAINER - XR SWLW [facility] W/C V 2019-09-29 13:08:00 FAX: Kianna Navarro MD [phone] [place]: St: [facility] FAX: Marvin Carver MD [phone] Name: FIDELINA SARMIENTO [facility] : 1955 Age/S: 64/F [address] [place] [address] Unit #: [id number] Loc: [place] [address] Phys: Kianna Jacob MD Acct: [id number] Dis Date: Status: REG CLI PHONE #: [phone] Exam Date: 09/29/2019 1127 FAX #: [phone] Reason: DYSPHAGIA R13.10 EXAMS: CPT CODE: [id number] XR SWLW [facility] W/C V 96427 Modified barium swallow: HISTORY: Dysphasia, epilepsy, lung [...] 1.86 mGy, fluoroscopy time 58 seconds SL: [id number] at 1308 Reported and signed by: Jan Shaffer M.D. 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 DATE OF TEST: 08-04-2019 DATE OF REPORT: 08-04-2019 EE- 0264 ACC: [id number] Start: 1349 Stop: 1421 ICD-10: R56.9 CPT Code: 87018 HISTORY: 64 yo female here for psychogenic [...] MS Neurophysiology/Epilepsy Attending BRAIN WO 2019-06-07 11:00:00 [place] [address] Patient Name: FIDELINA SARMIENTO MR #: [id number] : 1955 Age/Sex: 64/F Req #: [id number] Adm Physician: KIANNA JACOB MD Ordered by: KIANNA JACOB MD Report #: [id number] Location: [facility] Room/Bed: [place] [address] Procedure: [id number] CT/CT BRAIN WO Exam Date: 06/07/19 Exam [...] Count (test code = 6690-2) 5.52 4.8-10.8 [facility] [id number] 12:03:00* Test Item Value Reference Range Interpretation Comments Red Blood Count (test code = 789-8) 4.81 3.6-5.1 [facility]2019-12-10 12:03:00* Test Item Value Reference Range Interpretation Comments Hemoglobin (test code = 81714-5) 13.6 12.0-16.0 [facility]2019-12-10 12:03:00* Test Item Value Reference Range Interpretation Comments Hematocrit (test code = 4544-3) 42.1 34.2-44.1 [facility] Corpuscular [id number] 12:03:00* Test Item Value Reference Range Interpretation Comments Mean Corpuscular Volume (test code = 787-2) 87.5 81-99 [facility] [facility] Corpuscular [id number] 12:03:00* Test Item Value Reference Range Interpretation Comments Mean Corpuscular Hemoglobin (test code = 785-6) 28.3 28-32 [facility] Corpuscular Hemoglobin Concent 2019-05-30 12:03:00* Test Item Value Reference Range Interpretation Comments Mean Corpuscular Hemoglobin Concent (test code = 786-4) 32.3 31-35 [facility] Distribution [id number] 12:03:00* Test Item Value Reference Range Interpretation Comments Red Cell Distribution Width (test code = 43816-1) 13.7 11.7 -14.4 [facility] CenterPlatelet [id number] 12:03:00* Test Item Value Reference Range Interpretation Comments Platelet Count (test code = 777-3) 192 140-360 [facility] CenterNeutrophils (%) (Auto)2019-05-30 12:03:00 * Test Item Value Reference Range Interpretation Comments Neutrophils (%) (Auto) (test code = 03198-9) 51.1 38.7-80.0 [facility] CenterLymphocytes (%) (Auto)2019-05-30 12:03:00 * Test Item Value Reference Range Interpretation Comments Lymphocytes (%) (Auto) (test code = 736-9) 34.1 18.0-39.1 [facility] CenterMonocytes (%) (Auto)2019-05-30 12:03:00* Test Item Value Reference Range Interpretation Comments Monocytes (%) (Auto) (test code = 5905-5) 11.8 4.4-11.3 [facility] CenterEosinophils (%) (Auto)2019-05-30 12:03:00 * Test Item Value Reference Range Interpretation Comments Eosinophils (%) (Auto) (test code = 713-8) 1.8 0.0-6.0 [facility] CenterBasophils (%) (Auto)2019-05-30 12:03:00* Test Item Value Reference Range Interpretation Comments Basophils (%) (Auto) (test code = 706-2) 0.7 0.0-1.0 [facility] CenterIM GRANULOCYTES %2019-05-30 12:03:00* Test Item Value Reference Range Interpretation Comments IM GRANULOCYTES % (test code = IM GRANULOCYTES %) 0.5 0.0- 1.0 [facility] CenterNeutrophils # (Auto)2019-05-30 12:03:00* Test Item Value Reference Range Interpretation Comments Neutrophils # (Auto) (test code = 751-8) 2.8 2.1-6.9 [facility] CenterLymphocytes # (Auto)2019-05-30 12:03:00* Test Item Value Reference Range Interpretation Comments Lymphocytes # (Auto) (test code = 73051-1) 1.9 1.0-3.2 [facility] CenterMonocytes # (Auto)2019-05-30 12:03:00* Test Item Value Reference Range Interpretation Comments Monocytes # (Auto) (test code = 742-7) 0.7 0.2-0.8 [facility] CenterEosinophils # (Auto)2019-05-30 12:03:00* Test Item Value Reference Range Interpretation Comments Eosinophils # (Auto) (test code = 711-2) 0.1 0.0-0.4 [facility] CenterBasophils # (Auto)2019-05-30 12:03:00* Test Item Value Reference Range Interpretation Comments Basophils # (Auto) (test code = 704-7) 0.0 0.0-0.1 [facility] CenterAbsolute Immature Granulocyte (auto 2019-05-30 12:03:00* Test Item Value Reference Range Interpretation Comments Absolute Immature Granulocyte (auto (geneva t code = Absolute Immature Granulocyte (auto) 0.03 0-0.1 [facility] CenterTERMINAL [id number] 13:02:00 RUN DATE: 07/18/18 [facility] PAGE 1 RUN TIME: 1302 Specimen Inqui ry RUN USER: INTERFACE PATIENT: FIDELINA SARMIENTO ACCT #: V [id number] [facility] [id number] AGE/SX: 63/F ROOM: RE07/14/18[facility] DR: Kianna Jacob MD : 57 BED: DIS: STATUS: VLAD [facility] TLOC: SPEC #: [id number] RECD: 07/15/18 STATUS: FEMI CAROLA #: [id number] BOB: 07/14/18 [facility] DR: Kianna Jacob MD ENTERED: 07/15/18 SP TYPE: TERM ILEUM OTHR DR: Mark Pacheco MD ORDERED: GROSS COPIES TO: Kianna Jacob MD [address] [place] [address] Mark Pacheco MD [address] [address] PROCEDURES: GR OSS (07/18/18-1157) TISSUES: [...] HY PERPLASTIC OR ADENOMATOUS CHANGE PRESENT JANESSA VALLEJO ON NEXT PAGE RUN DATE: 07/18/18 [facility] - Lab PAGE 2 RUN TIME: 1302 Specimen Inquiry RUN USER: INTERFACE SPEC #: [id number] ATIENT: FIDELINA SARMIENTO #[id number] (Continued) FINAL DIAGNOSIS (Continued) NEGATIVE FOR MALIGNANCY RRB/sm D [phone] MACROSCOPIC Specimen (1) is received in formalin, [...] as (2). Specimen (3) is received in [facility], labeled with the patient's name, identified as "descending colon", and consists of red-brown biopsy tissue measuring 0.25 cm in aggregate, submitted as (3). GROSS PERFORMED AT [facility] [address] [place] [address] (P)[phone] MICROSCOP IC MICROSCOPIC PERFORMED AT [facility] All of the stains, inclu ding any controls performed, stain appropriately. [facility] [address] [place] [address] (P)[phone] PERFORMING SIT E Diagnosis performed at: [facility] [address] [place] [address] CONTINUED ON NEXT PAGE RUN DATE: 07/18/18 [facility] PAGE 3 RUN TIME: 1302 Specimen Inquiry RUN USER: Cecy URRUTIA S PEC #: [id number] PATIENT: FIDELINA SARMIENTO #[id number] (Continued) Signed SIGNATURE ON FILE Luis Chew 07/18/18 1302 END OF REPORT GLUBED 2018-07-14 13:39:00* Test Item Value Reference Range Interpretation Comments GLUBED (test code = GLUBED) 91 mg/dL 74-106 N Performed by certified coagulation operator at [facility] [id number] 12:18:00* Test Item Value Reference Range Interpretation Comments POTASSIUM (test code = K) 3.2 mmol/L 3.5-5.1 L BASIC METABOLIC [id number] 12:23:00* Test Item Value Reference Range Interpretation [...] CA) 9.5 mg/dL 8.5-10.1 N CBC W/AUTO [id number] 12:19:00* Test Item Value Reference Range Interpretation [...] (test code = MDIFF) NO BASIC METABOLIC [id number] 12:18:00* Test Item Value Reference Range Interpretation [...] CALCIUM (test code = CA) mg/dL 8.5-10.1 GASTRIC,[id number] 15:58:00 RUN DATE: 06/10/18 [employer] PAGE 1 RUN TIME: 1558 Specimen Inqui ry RUN USER: INTERFACE PATIENT: FIDELINA SARMIENTO ACCT #: V [id number] [facility] U #: [id number] AGE/SX: 63/F ROOM: RE06/09/18REG DR: Kianna Jacob MD : 57 BED: DIS: STATUS: [facility] TLOC: SPEC #: [id number] RECD: 06/09/18 STATUS: FEMI RE #: [id number] BOB: 06/09/18 DR: Kianna Jacob MD ENTERED: 06/09/18 SP TYPE: GASTRIC BX OTHR DR: Mark Pacheco MD ORDERED: GROSS COPIES TO: Kianna Jacob MD [address] [place] [address] Mark Pacheco MD [address] [address] PROCEDURES: GR OSS (06/10/18-105) TISSUES: GASTRIC FUNDUS - POLYP BX CS CLIN ICAL HISTORY COLLECTION DATE: 06/09/2018 HX: STOMACH POLYP DIANE VASQUEZ POLYPS FINAL DIAGNOSIS Gastric polyps, biopsy: FUNDIC TYPE GASTRIC POLYPS NEGATIVE FOR MALIGNANCY DMW/sm D 84430 MACROSCOPIC The specimen is received in formalin, labeled with the taylor ent's name, and identified as "gastric polyp snare". It consists of a oviedo dc ypoid fragment of tissue measuring 0.6 X 0.4 X 0.4 cm and multiple oviedo fragmen ts of tissue measuring 1.2 cm in aggregate. The polypoid portion is bisected and submitted CONTINUED ON NEXT PAGE ------ ------RUN DATE: 06/10/18 [place] - Lab PAGE 2 RUN TIME: 1558 Specimen Inquiry RUN USER: INTERFACE SPEC #: [id number] PATIENT: FIDELINA SARMIENTO #[id number] (Continued) MACROSCOPIC (Continued) for microscopic evaluation in cassette (1A) and the remaining fragments are submitted for microscopic evaluation in cassette (1B). GROSS PERFORMED AT [facility] [address] [place] [address] ([phone] MICROSCOPIC MICR OSCOPIC PERFORMED AT [facility] All of the stains, including any c ontrols performed, stain appropriately. [facility] [address] [place] [address] ([phone] PERFORMING SITE Mabel gnosis performed at: [facility], SAR[place] [address] [place] [address] Signed SIGN ATURE ON FILE Dee Dee Dey 06/10/18 1558 -------- ---- END OF REPORT TROPONIN [id number] 16:49:00* Test Item Value Reference Range Interpretation Comments TROPONIN I (BEAKER) (test code = 397) < ng/mL 0.00-0.03 B-TYPE NATRIURETIC FACTOR (BNP)2018-05-14 16:49:00* Test Item Value Reference Range Interpretation Comments B-TYPE NATRIURETIC PEPTIDE (BEAKER) (test code = 700) 13 pg/mL 0-100 [id number] 16:42:00* Test Item Value Reference Range Interpretation Comments MAGNESIUM (BEAKER) (test code = 627) 2.2 mg/dL 1.6-2.6 Specimen slightly hemolyzed BASIC METABOLIC [id number] 16:42:00* Test Item Value Reference Range Interpretation [...] DIALYSIS PATIENTS. CBC W/PLT COUNT & AUTO [id number] 16:27:00* Test Item Value Reference Range Interpretation [...] % 0-1 RAD, CHEST, 1 VIEW, NON [id number] 15:54:00Reason for exam:->chest painFINAL REPORT INDICATION: chest pain COMPARISON:January 20, 2016 TECHNIQUE: Chest radiograph, single view, portable technique. FINDINGS / IM PRESSION: No pneumothorax, consolidation, pulmonary edema, or pleural effusion i s demonstrated. Cardiac and mediastinal contours are unremarkable for portable t echnique. Osseous structures unremarkable. Signed: Daja Adam MDReport Cyndi ified Date/Time: 05/14/2018 15:54:56 Reading Location: [facility] C013 Ortho Consu Reading Room Electronically signed by: DAJA ADAM M.D. on 05/14 03:54 PM [id number] 13:35:00 RUN DATE: 04/01/18 [facility] RUN TIME: 1335 Specimen Inqui ry RUN USER: INTERFACE PATIENT: FIDELINA SARMIENTO ACCT #: V [id number] LOC: [facility] U #: [id number] AGE/SX: 63/F ROOM: RE03/31/18REG DR: Kianna Jacob MD : 57 BED: DIS: STATUS: [facility] TLOC: SPEC #: [id number] RECD: 03/31/18 STATUS: FEMI [facility] #: [id number] BOB: 03/31/[address]: Kianna Jacob MD ENTERED: 03/31/18 SP TYPE: STOMACH OTHR DR: Mark Pacheco MD ORDERED: GROSS COPIES TO: Kianna Jacob MD [address] [place] [id number] Mark Pacheco MD [address] [address] PROCEDURES: GR OSS (04/01/18) TISSUES: 1. BODY BIOPSY OF STOMACH - [...] INUED ON NEXT PAGE RUN DATE: 04/01/18 [place] - Lab PAGE 2 RUN TIME: 1335 Specimen Inquiry RUN USER: INTERFACE SPEC #: [id number] PATIENT: FIDELINA SARMIENTO #[id number] (Continued) FINAL DIAGNOSIS (Continued) REACTIVE GASTROPATHY NO ACUTE INFLAMMATORY INFILTRATE PRESENT NEGATIVE FOR INTESTINAL METAPLA ROMA NEGATIVE FOR HELICOBACTER ORGANISMS NEGATIVE FOR MALIGNANCY Gastric body, biopsy: FRAGMENT OF GASTRIC MUCOSA WITH NO PATHOLO GIC ALTERATION NEGATIVE FOR HELICOBACTER ORGANISMS RRB/duke D [phone] MACROSCOPIC The first specimen is received in [...] fourth specimen is received in formalin, lab eledannie with the patient's name, identified as "body", and consists of pink biops y tissue measuring 0.4 cm in aggregate, submitted as (4). GROSS PERFORME D AT [facility] [address] [facility] [place] [address] ([phone] MICROSCOPIC MICROSCOPIC PERFORMED A T [facility] All of the stains, including any controls performed, stain appropriately. [facility] [address] [facility] CONTINUED ON NEXT PAGE RUN DATE: [facility] PAGE 3 RUN TIME: 1335 Specimen Inquiry RUN US ER: INTERFACE -------- ----SPEC #: [id number] PATIENT: GERSONFIDELINA RENTERIA #[id number] (Continued) MICROSCOPIC (Continued) DARLENE ESCALERA [address]32324 (p)[phone] PERFORMING SITE Diagnosis performe d at: [facility] [address] [place] [address] Signed SIGNATURE ON FILE Luis Chew 04/01/18 1335 END OF REPORT BASIC METABOLIC [id number] 09:09:00* Test Item Value Reference Range Interpretation [...] GFR IS NOT APPLICABLE FOR DIALYSIS PATIENTS. [id number] 08:53:00* Test Item Value Reference Range Interpretation [...] EEG MONITORING WITH VIDEO RECORDING EACH 24 [id number] 16:47:00Reason for exam:->EMU admit- h/o PNESEPILEPSY MONITORING UNIT - VIDEO EEG STUDY EEG NUMBER: [id number] ACCESSION NUMBERS: [id number], [id number], [id number], [id number] OF RECORDIN10/04/17, and recording started at 10:42 [...] observed as detailed above, described by travon he patient and her as representing the [...] her involvement in psychotherapy with her current drug counselor or (with anticipated hypnosis therapy) and [...] Attending MONITORING WITH VIDEO RECORDING EACH 24 [id number] 16:47:00Reason for exam:->EMU admit- h/o PNESEPILEPSY MONITORING UNIT - VIDEO EEG STUDY EEG NUMBER: [id number] ACCESSION NUMBERS: [id number], [id number], [id number], [id number] OF RECORDIN10/04/17, and recordi ng started at [...] to an underlying functional neurologic process. Supporti this impression are the clinical features of [...] Attending MONITORING WITH VIDEO RECORDING EACH 24 [id number] 16:47:00Reason for exam:->EMU admit- h/o PNESEPILEPSY MONITORING UNIT - VIDEO EEG STUDY EEG NUMBER: [id number] ACCESSION NUMBERS: [id number], [id number], [id number], [id number] OF RECORDIN10/04/17, and recordi ng started at [...] as learning disability requiring special education. O verrajeev, we discussed our impression with Mrs. Sarmiento [...] Attending MONITORING WITH VIDEO RECORDING EACH 24 [id number] 16:47:00Reason for exam:->EMU admit- h/o PNESEPILEPSY MONITORING UNIT - VIDEO EEG STUDY EEG NUMBER: [id number] ACCESSION NUMBERS: [id number], [id number], [id number], [id number] OF RECORDIN10/04/17, and recordi ng started at [...] to an underlying functional neurologic process. Supporti this impression are the clinical features of [...] Fellow Galdino Dodd MD Epilepsy Attending -GLUCOSE [id number] 08:21:00* Test Item Value Reference Range Interpretation Comments POC-GLUCOSE METER (BEAKER) (test code = 1538) 110 mg/dL 70-110 TESTED AT [facility] [address] [address] POCT-GLUCOSE [id number] 02:27:00* Test Item Value Reference Range Interpretation Comments POC-GLUCOSE METER (BEAKER) (test code = 1538) 97 mg/dL 70-110 TESTED AT [address] [address] POCT-GLUCOSE [id number] 13:17:00* Test Item Value Reference Range Interpretation Comments POC-GLUCOSE METER (BEAKER) (test code = 1538) 86 mg/dL 70-110 TESTED AT [address] [address] TSH/FREE T4 IF [id number] 05:33:00* Test Item Value Reference Range Interpretation Comments THYROID STIMULATING HORMONE (BEAKER) (test code = 772) 2.39 uIU/mL 0.35-4.94 POCT-GLUCOSE [id number] 19:58:00* Test Item Value Reference Range Interpretation Comments POC-GLUCOSE METER (BEAKER) (test code = 1538) 119 mg/dL 70-110 H TESTED AT [address] [address] POCT-GLUCOSE [id number] 15:43:00* Test Item Value Reference Range Interpretation Comments POC-GLUCOSE METER (BEAKER) (test code = 1538) 93 mg/dL 70-110 TESTED AT [address] [address] POCT-GLUCOSE [id number] 14:34:00* Test Item Value Reference Range Interpretation Comments POC-GLUCOSE METER (BEAKER) (test code = 1538) 96 mg/dL 70-110 TESTED AT [address] [address] POCT-GLUCOSE [id number] 14:34:00* Test Item Value Reference Range Interpretation Comments POC-GLUCOSE METER (BEAKER) (test code = 1538) 95 mg/dL 70-110 TESTED AT [address] [address] COMPREHENSIVE METABOLIC [id number] 12:36:00* Test Item Value Reference Range Interpretation [...] DIALYSIS PATIENTS. CBC W/PLT COUNT & AUTO [id number] 11:53:00* Test Item Value Reference Range Interpretation [...]
--- OUTSIDE RECORDS SUMMARY | 2019-11-10 20:03 | XMS REPORT | Summary of Care ---
Author Author [facility] - Health Organization [facility] - Health Address Unknown Phone Unavailable Care Team Providers Care Foreign Exchange Clerk Name Role Phone Fabien Fernandes MD Unavailable Marvin Oconnor MD PCP Ulysses Lazar 25 Unavailable Reason for Visit * Reason Comments Fall Encounter Details Care Team Description Date Type Department Marvin Oconnor MD [address] [place] [id number] Pseudoseizure (Primary Dx); Rash; Hypokalemia 11/09/2019 Telemedicine [facility] Health Interna l Visit Medicine- [facility] [address], [address] [place] [address] Allergies Comments Active Allergy Reactions Severity Noted Date Azithromycin Itching 01/07/2019 Ciprofloxacin Rash 01/27/2018 Clindamycin Other - See Medium 10/05/2016 comments, Itching Clonazepam Itching, Medium 11/23/2017 Rash, Swelling All steroids-muscle weakness Corticosteroids Other - See 01/20/2016 (Glucocorticoids) comments Doxycycline Rash Low 08/21/2019 Iodine Rash 10/05/2016 "swelling internally" per patient Cephalexin Itching, Rash 08/18/2019 Lincomycin Rash Medium 09/15/2017 Nitrofurantoin Rash 01/27/2018 Other [place]-3s Anaphylaxis 01/27/2018 States it would be fatal Penicillins Other - See High 01/20/2016 comments, Shortness of Breath Shellfish Derived Other - See 03/18/2019 comments BActrim Rash Sulfamethizole Rash 07/05/2019 New string of tetanus- went to ER , medication for throat closing up Tetanus Vaccines And Swelling High 6 Toxoid documented as of this encounter (statuses as of 11/10/2019) Medications End Date Status Medication Sig Dispensed [...] needed. Active fluticasone propionate 50 Use 1 [place] 16 g 0 mcg/actuation nasal in each [...] times daily as needed for Itching. Active hydroCHLOROthiazide 25 mg Take 1 tablet [...] hematuria, site daily for 7 unspecified days. Active KCL 10 mEq Take 1 tablet 30 tablet 0 tabletIndications: by mouth 0 Hypokalemia daily. 11/09/2019 Discontinued (Reorder) KCL 10 mEq tablet Take 1 tablet 30 tablet 0 by mouth 0 daily. 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 01/12/2019 Overview: Added automatically from request for josé luis penaery [id number] Obesity (BMI 30-39.9) 12/16/2018 Recurrent UTI 05/17/2018 [...] as of this encounter (statuses as of 11/10/2019) Resolved Problems Problem Noted Date Resolved Date Spondylosis of lumbar region without myelopathy or radiculo johanna 01/12/2019 01/16/2019 Overview: Added automatically from request for ordonez beckyery [id number] documented as of this encounter (statuses as of 11/10/2019) Immunizations Name Administration Dates Next Due Influenza [...] Progress Notes * Marvin Oconnor MD - 11/09/2019 2:00 PM CDT Internal Medicine Telemedicine Clinic Note Location of Patient: Home Location or Provider: Faculty Office Date of Service: 11/09/2019 Chief Complaint: fall HPI: John Nieto is a 64 year old female who has given verbal consent for a te lemedicine encounter today. Telemedicine encounter conducted due to the COVID-19 pandemic. ID was confirmed by Name. Today's telemedicine encounter was conducted via video (audio and video) encounter. Patient PMH of non-epileptic seizure, chronic interstitial cystitis,HTN, HLD,multiple drug allergies, osteoporos is,anxiety/depression, seasonal allergies, kidney stones presents for ED follo w up and evaluation after fall. Patient had a epileptic episode at [employer] y esterday, tried to move her to a less public area and tripped in a 5 in hole and patient hit the back of her head. She was taken to the neared ED which was [facility] in [place]. Blood work was unremarkable except for a K 3.1 of so was replaced by PO in the ED. CT scan was done of head, neck, shoulder, spin e which was negative for fracture or hematoma. Had another seizure episode in th e ED which resolved without intervention. Reassurance was provided nothing was abnormal and was recommended to follow up with PCP afterwards. Since then she notes she has felt sore "all over" but most notably her head, albina ulders, back and arms. She has tried Tylenol which has not helped. She had bee n avoid NSAIDs because of her gastritis/esophagitis. Patient also complaining of a diffuse itchy papular rash across both her arms an d legs. They appear as small red bumps in no specific pattern other than being spaced a few centimeters apart. This has been ongoing for some time (patient di d not specify how long). She has tried taking atarax for itching with mild reli ef but has not tried any hydrocortisone cream that she has at home because of he r reported history of steroid allergy. ROS: Review of Systems Constitutional: Negative for fever. HENT: Negative for congestion and sore throat. Respiratory: Negative for cough and shortness of breath. Gastrointestinal: Negative. Genitourinary: Positive for dysuria, urgency and frequency. Musculoskeletal: Positive for arthralgias and back pain. Skin: Positive for rash. Neurological: Positive for seizures, weakness and headaches. Psychiatric/Behavioral: The patient is nervous/anxious. Medications: Current Outpatient Medications Medication Sig Dispense Refill cefUROXime 250 mg tablet Take 1 tablet by mouth 2 (two) times daily for 7 da ys. 14 tablet 0 gabapentin 400 mg capsule Take two 400 mg tablets PO in the morning, one 400 mg tablet PO in the afternoon, and one 400mg PO in the evening times 5 days, th en take two 400mg tablets PO in the morning, two 400mg tablets PO in the afterno on, and one 400mg tablet PO in the evening x 5 days, then take two 400 mg tablet s PO THREE TIMES A DAY on going. 165 capsule 0 SERTraline 100 mg tablet Take 1 tablet by mouth daily. 90 tablet 0 conjugated estrogens (PREMARIN) 0.625 mg/gram vaginal cream Insert 0.5 g int o vagina at bedtime. 30 g 2 hydroCHLOROthiazide 25 mg tablet Take 1 tablet by mouth daily. 90 tablet 3 KCL 10 mEq tablet Take 1 tablet by mouth daily. 30 tablet 0 famotidine 40 mg tablet Take 1 tablet by mouth daily. 30 tablet 0 hydrOXYzine 25 mg tablet Take 2 tablets by mouth 2 (two) times daily as need ed for Itching. 30 tablet 0 VITAMIN D3 10 mcg (400 unit) tablet Take 1 tablet by mouth daily. fluticasone propionate 50 mcg/actuation nasal spray Use 1 [place] in each nost ril 2 (two) times daily. 16 g 0 cannabidiol, CBD, (CANNABIDIOL ORAL) Take by mouth 3 (three) times daily as needed. montelukast 10 mg tablet Take 10 mg [...] female with PMH as above presenting with: Pseudoseizure (primary encounter diagnosis) Recent fall on head Comment: ED imaging shows no fractures or bleeding. Patient has known Hx of pse udoseizures, confirmed by several neurologists and also witnessed an episode mys elf allowing me to conclude the same (patient able to communicate and follow com mands while having total body convulsions which is inconsistent with a generaliz ed seizure). Has close follow up with all the appropriate specialists Plan: - NSAID prn okay for pain in the short term, if pain remains uncontrolled or unable to tolerate NSAID, can try 1 week of tramadol - c/w zoloft 100 mg daily per psychiatry on 10/25 - c/w psychotherapy w/ ms Della, next visit scheduled for November 29 - Last saw neuro on 10/25, has deferred all future management of this condition to psychiatry Rash Comment: appearance on video appear to be mild eczema. While patient endorses " steroid allergy", not entirely clear if that is a true allergy given how rare th is condition is, the reported effect is "muscle weakness" and the fact that taylor ent was able to use nasal steroids without an allergic reaction. (though does n ot like flonase because it causes nose bleeds for her) Plan: - recommended trying a small amount of OTC hydrocortisone on one small pat ch of affected skin and if well tolerated, use for her rashes until resolution Hypokalemia Comment: K low at ED visit, has had consistently mildly low K in the past Plan: - refill KCL 10 mEq tablet daily Health maintenance - flu beebmck00/28/19 -shingrix07/26/19, 2nd shot pending - allergic to Tdap - Colonoscopydone, 08/2016 Dr. Kianna Hoyt, found hemorrhoids and polyps, plan to repeat in 5 years - pap smear done 08/02/18 - mammogram due, scheduled on 01/09/20 Follow up in 3 months Video encounter: A total of 30 minutes were spent on this encounter which includ es time spent with the patient, chart review, ordering tests/ referrals, and doc umentation. Marvin Oconnor MD 11/09/2019 2:06 PM documented in this encounter Plan of Treatment Care Team Description Date Type Specialty Sukh Harris MD [address] [facility] [id number] [place], [place] [address] 11/23/2019 Office Visit Pain Medicine [facility]ie [facility] [address] [place], [place] [address] 11/30/2019 Office Visit Psychiatry Dieter Zhou MD [id number] [place], [place] [id number] 01/03/2020 Office Visit Pulmonary Disease Marvin Oconnor MD [address] [place] [address] [phone] 01/09/2020 Appointment Radiology Marvin Oconnor MD [address] [place] [place], [place] [id number] 01/09/2020 Appointment Radiology Floresita Bañuelos MD [address] [place] [phone] 01/11/2020 Office Visit Psychiatry Health Maintenance [...] filedocumented in this encounter Visit Diagnoses Diagnosis Pseudoseizure - Primary Other convulsions Rash Rash and other nonspecific skin eruptio n Hypokalemia Hypopotassemia documented in this encounter Insurance Type Payer Benefit Subscriber ID Effective Phone Address Plan / Dates Group HMO [facility] [id number] 2019-P [address] [employer] [facility] [id number] [place] [address] documented as of this encounter
[2019-11-10] MEDS ORDERED: LEVETIRACETAM 500MG/5ML VIAL 500 MG in SODIUM CHLORIDE 0.9% 100 ML 100 ML IV STA (20:13)
[2019-11-10 20:44] LABS: BASOPHILS % 0.4 % (0.0-1.0); HEMATOCRIT 39.4 % (34.2-44.1); HEMOGLOBIN 12.6 g/dL (12.0-16.0); LYMPHOCYTES # (AUTO) 1.8 (1.0-3.2); LYMPHOCYTES % 31.9 % (18.0-39.1); MEAN CORPUSCULAR HEMOGLOBIN 26.4 pg (28-32); MEAN CORPUSCULAR VOLUME 82.4 fL (81-99); MONOCYTES # (AUTO) 0.4 (0.2-0.8); MONOCYTES % 7.2 % (4.4-11.3); NEUTROPHILS # (AUTO) 3.4 (2.1-6.9); NEUTROPHILS % 60.1 % (38.7-80.0); PLATELET COUNT 180 x10e3/uL (140-360); RED BLOOD COUNT 4.78 x10e6/uL (3.6-5.1); RED CELL DISTRIBUTION WIDTH 13.4 % (11.7-14.4)
[2019-11-10 20:51] LABS: PARTIAL THROMBOPLASTIN TIME 28.2 seconds (23.8-35.5)
[2019-11-10 20:57] LABS: INR 0.89; PROTHROMBIN TIME 12.6 seconds (11.9-14.5)
[2019-11-10 21:02] LABS: ALANINE AMINOTRANSFERASE 27 IU/L (0-55); ALBUMIN/GLOBULIN RATIO 1.3 (0.8-2.0); ALKALINE PHOSPHATASE 66 IU/L (40-150); ANION GAP 13.9 mmol/L (8-16); BLOOD UREA NITROGEN 19 mg/dL (7-26); BUN/CREATININE RATIO 23 (6-25); CALCIUM 9.5 mg/dL (8.4-10.2); CARBON DIOXIDE 28 mmol/L (22-29); CHLORIDE 102 mmol/L (98-107); CREATINE KINASE 83 IU/L (29-168); CREATININE, SERUM 0.84 mg/dL (0.57-1.11); EST GLOMERULAR FILTRATION RATE > 60 ML/MIN (60-); GLUCOSE 141 mg/dL (74-118); LIPASE 43 U/L (8-78); SODIUM 141 mmol/L (136-145)
[2019-11-10 21:09] LABS: POTASSIUM 2.9 mmol/L (3.5-5.1)
--- NOTE | 2019-11-10 21:15 | NUR ---
ER MD AND PRIMARY RN NOTIFIED AND AWARE OF CRITICAL LACB VALUE, POTASSIUM 2.9.
[2019-11-10] MEDS ORDERED: POTASSIUM CHLORIDE 20 MEQ TAB CR PO STA (21:37)
[2019-11-10 21:40] LABS: BILIRUBIN,URINE NEGATIVE (NEGATIVE); CLARITY,URINE SL CLOUDY (CLEAR); COLOR,URINE YELLOW (YELLOW); KETONES,URINE NEGATIVE (NEGATIVE); LEUKOCYTE ESTERASE ,URINE TRACE (NEGATIVE); NITRITE,URINE NEGATIVE (NEGATIVE); PROTEIN,URINE DIPSTICK NEGATIVE (NEGATIVE); URINE UROBILINOGEN 0.2 mg/dL (0.2 - 1)
--- NOTE | 2019-11-10 21:49 | Diagnostic Imaging Report ---
History: Fall 2 days ago Comparison studies: CT head 11/08/2019 Technique: Axial images were obtained from the skull base to the vertex. Coronal and sagittal reconstructions obtained from the axial data. Dose modulation, iterative reconstruction, and/or weight based adjustment of the mA/kV was utilized to reduce the radiation dose to as low as reasonably achievable. Findings: Scalp/skull: No abnormalities. No fractures, blastic or lytic lesions. Extra-axial spaces: No masses. No fluid collections. Brain sulci: Appropriate for age. Prominent cerebellar vermian folia. Ventricles: Normal in size and configuration. No hydrocephalus. Parenchyma: No abnormal density. No masses, hemorrhage, acute or chronic cortical vascular insults. Sellar/suprasellar region: No abnormalities Craniocervical junction: Patent foramen magnum. No Chiari one malformation. Atherosclerotic calcifications of the carotid siphons and vertebral arteries Under pneumatization right mastoid air cells. IMPRESSION: No acute abnormalities . Mild cerebellar vermis volume loss, stable. Signed by: DR Greg Bosch M.D. on 11/10/2019 9:46 PM
[2019-11-10 21:53] LABS: BACTERIA,URINE FEW /HPF; EPITHELIAL CELLS,URINE FEW /LPF; WBC,URINE (MAN) 0-5 /HPF (0-5)
--- NOTE | 2019-11-10 22:30 | Diagnostic Imaging Report ---
EXAMINATION: CHEST SINGLE (PORTABLE) INDICATION: None provided. COMPARISON: None FINDINGS: TUBES and LINES: None. LUNGS: Lungs are well inflated. Central vascular congestion with mild interstitial opacities. Minimal patchy bibasilar opacities, likely atelectasis. Linear subsegmental atelectasis in the left lower lung. PLEURA: No pleural effusion or pneumothorax. HEART AND MEDIASTINUM: The cardiomediastinal silhouette is unremarkable. There are atherosclerotic calcifications within the aorta. BONES AND SOFT TISSUES: No acute osseous abnormality. Globular hyperdensity adjacent to the greater tuberosity on the right, likely rotator cuff tendinopathy. UPPER ABDOMEN: No free air under the diaphragm. IMPRESSION: Findings suggestive of mild pulmonary interstitial edema. Minimal patchy bibasilar opacities, likely atelectasis, although infection is possible in the appropriate clinical setting. Signed by: Dr. Conrado Ulloa MD on 11/10/2019 10:27 PM
--- NOTE | 2019-11-10 23:37 | Emergency Department Note ---
History of Present Illnes History of Present Illness Chief Complaint: Neurological History of Present Illness This is a 64 year old female returns to the ED for evaluation of "sl urring" of speech . 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 Any updates have been documented here. Past Medical History Recent Fever: No Clinical Suspicion of Infectio: No New/Unexplained Change in Ment: No Past Medical History: Hypertension, Asthma, Seizure Disorder (pseudoseizure), Migraines, Anxiety, Depression, Hyperlipedemia, Chronic Back Pain Other Medical History: OSTEOPOROSIS SLEEP APNEA IRRITABLE BOWEL DISEASE Past Surgical History: Hysterectomy, T&A Other Surgery: NOSE SURGERY BLADDER SUSPENSION LEFT & RIGHT BREAST-FIB. CYSTS REMOVED Social History Smoking Cessation: Never Smoker Alcohol Use: None Any Illegal Drug Use: No Other Last Tetanus: UTD Review of Systems Review of Systems Constitutional: no symptoms EENTM: no symptoms Cardiovascular: no symptoms Respiratory: no symptoms Gastrointestinal: no symptoms Genitourinary: no symptoms Musculoskeletal: no symptoms Neurological: seizure, weakness, other (slurring of speech) Psychological: no symptoms Endocrine: no symptoms Hematological/Lymphatic: no symptoms Review of other systems All other systems reviewed and negative. Physical Exam Related Data Allergies: Coded Allergies: Neuromuscular Blockers, Steroidal (Verified Allergy, Unknown, 06/17/15) Penicillins (Verified Allergy, Unknown, 01/06/16) Shellfish (Verified Allergy, Unknown, 01/06/16) Sulfa (Sulfonamide Antibiotics) (Verified Allergy, Unknown, 05/16/16) Tetanus Vaccines and Toxoid (Verified Allergy, Unknown, 01/06/16) acetaminophen (Verified Allergy, Unknown, 06/17/15) albuterol (Unverified Allergy, Unknown, 05/16/16) alprazolam (Verified Allergy, Unknown, 01/06/16) aminocaproic acid (Verified Allergy, Unknown, 01/06/16) azithromycin (Verified Allergy, Unknown, 01/06/16) benzonatate (Verified Allergy, Unknown, 01/06/16) brimonidine (Verified Allergy, Unknown, 01/06/16) brimonidine tartrate (Verified Allergy, Unknown, 01/06/16) budesonide (Unverified Allergy, Unknown, 05/16/16) buspirone (Unverified Allergy, Unknown, 05/16/16) cefaclor (Verified Allergy, Unknown, 01/06/16) cefuroxime (Verified Allergy, Unknown, 01/06/16) cephalexin (Verified Allergy, Unknown, 01/06/16) cerivastatin (Verified Allergy, Unknown, 01/06/16) ciprofloxacin (Verified Allergy, Unknown, 01/06/16) citalopram (Unverified Allergy, Unknown, 05/16/16) clarithromycin (Verified Allergy, Unknown, 01/06/16) clemastine (Verified Allergy, Unknown, 01/06/16) clindamycin (Unverified Allergy, Unknown, 05/16/16) codeine (Verified Allergy, Unknown, 01/06/16) cyclobenzaprine (Verified Allergy, Unknown, 06/17/15) diclofenac (Verified Allergy, Unknown, 06/17/15) dicyclomine (Verified Allergy, Unknown, 01/06/16) diphenhydramine (Verified Allergy, Unknown, 01/06/16) doxycycline (Verified Allergy, Unknown, 01/06/16) erythromycin base (Verified Allergy, Unknown, 01/06/16) famotidine (Verified Allergy, Unknown, 01/06/16) fexofenadine (Verified Allergy, Unknown, 01/06/16) flavoxate (Verified Allergy, Unknown, 01/06/16) fluoxetine (Verified Allergy, Unknown, 01/06/16) fluticasone (Unverified Allergy, Unknown, 05/16/16) fluvastatin (Verified Allergy, Unknown, 01/06/16) formoterol (Unverified Allergy, Unknown, 05/16/16) guaifenesin (Verified Allergy, Unknown, 01/06/16) hydrocodone (Verified Allergy, Unknown, 01/06/16) ibuprofen (Verified Allergy, Unknown, 01/06/16) iodine (Verified Allergy, Unknown, 01/06/16) ipratropium (Verified Allergy, Unknown, 01/06/16) latanoprost (Verified Allergy, Unknown, 01/06/16) latex (Verified Allergy, Unknown, 01/06/16) levocetirizine (Verified Allergy, Unknown, 01/06/16) loratadine (Verified Allergy, Unknown, 01/06/16) metoprolol (Verified Allergy, Unknown, 01/06/16) mirtazapine (Unverified Allergy, Unknown, 05/16/16) misoprostol (Verified Allergy, Unknown, 01/06/16) mupirocin (Unverified Allergy, Unknown, 05/16/16) naproxen (Verified Allergy, Unknown, 01/06/16) neomycin (Verified Allergy, Unknown, 05/16/16) niacin (Unverified Allergy, Unknown, 05/16/16) nitrofurantoin (Verified Allergy, Unknown, 01/06/16) phenazopyridine (Unverified Allergy, Unknown, 05/16/16) phenylephrine HCl (Verified Allergy, Unknown, 01/06/16) pilocarpine (Verified Allergy, Unknown, 01/06/16) polymyxin B (Verified Allergy, Unknown, 01/06/16) prednisone (Verified Allergy, Unknown, 01/06/16) pseudoephedrine (Verified Allergy, Unknown, 01/06/16) pseudoephedrine HCl (Verified Allergy, Unknown, 01/06/16) rofecoxib (Verified Allergy, Unknown, 01/06/16) simvastatin (Verified Allergy, Unknown, 01/06/16) sulfamethoxazole (Verified Allergy, Unknown, 01/06/16) triamcinolone (Verified Allergy, Unknown, 01/06/16) trimethoprim (Verified Allergy, Unknown, 01/06/16) valsartan (Verified Allergy, Unknown, 01/06/16) zafirlukast (Verified Allergy, Unknown, 01/06/16) Uncoded Allergies: ALBUTEROL PILL FORM (Allergy, Unknown, 06/17/15) STEROIDS (Allergy, Unknown, 06/17/15) Triage Vital Signs Vital Signs Date Time Temp Pulse Resp B/P (MAP) Pulse Ox O2 Delivery O2 Flow Rate FiO2 11/10/19 20:09 99.3 70 20 136/82 94 Physical Exam CONSTITUTIONAL Constitutional: well-nourished, morbidly obese HENT HENT: normocephalic, atraumatic, oropharynx clear/moist, nose normal HENT L/R: left ext ear normal, right ext ear normal EYES Eyes: PERRL, conjunctivae normal NECK Neck: ROM normal PULMONARY Pulmonary: effort normal, breath sounds normal CARDIOVASCULAR Cardiovascular: regular rhythm, heart sounds normal, capillary refill normal, normal rate GASTROINTESTINAL Abdominal: soft, nontender, bowel sounds normal GENITOURINARY Genitourinary: exam deferred SKIN Skin: warm, dry MUSCULOSKELETAL Musculoskeletal: ROM normal NEUROLOGICAL Neurological: alert, oriented x 3, no gross motor or sensory deficits PSYCHOLOGICAL Psychological: mood/affect normal, judgement normal Results Laboratory Lab results reviewed: Yes Laboratory comments Laboratory Tests Test 11/10/19 20:31 11/10/19 20:21 Urine Color Yellow (YELLOW) Urine Clarity Sl cloudy (CLEAR) Urine pH 5.5 (5 - 7) Urine Specific [place] 1.025 (1.010-1.025) Urine Protein Negative (NEGATIVE) Urine Glucose (UA) Negative (NEGATIVE) Urine Ketones Negative (NEGATIVE) Urine Blood Negative (NEGATIVE) Urine Nitrite Negative (NEGATIVE) Urine Bilirubin Negative (NEGATIVE) Urine Urobilinogen 0.2 mg/dL (0.2 - 1) Urine Leukocyte Esterase Trace (NEGATIVE) Urine RBC None /HPF (0-5) Urine WBC 0-5 /HPF (0-5) Urine Epithelial Cells Few /LPF (NONE) Urine Bacteria Few /HPF (NONE) White Blood Count 5.67 x10e3/uL (4.8-10.8) Red Blood Count 4.78 x10e6/uL (3.6-5.1) Hemoglobin 12.6 g/dL (12.0-16.0) Hematocrit 39.4 % (34.2-44.1) Mean Corpuscular Volume 82.4 fL (81-99) Mean Corpuscular Hemoglobin 26.4 pg (28-32) Mean Corpuscular Hemoglobin Concent 32.0 g/dL (31-35) Red Cell Distribution Width 13.4 % (11.7-14.4) Platelet Count 180 x10e3/uL (140-360) Neutrophils (%) (Auto) 60.1 % (38.7-80.0) Lymphocytes (%) (Auto) 31.9 % (18.0-39.1) Monocytes (%) (Auto) 7.2 % (4.4-11.3) Eosinophils (%) (Auto) 0.0 % (0.0-6.0) Basophils (%) (Auto) 0.4 % (0.0-1.0) Neutrophils # (Auto) 3.4 (2.1-6.9) Lymphocytes # (Auto) 1.8 (1.0-3.2) Monocytes # (Auto) 0.4 (0.2-0.8) Eosinophils # (Auto) 0.0 (0.0-0.4) Basophils # (Auto) 0.0 (0.0-0.1) Absolute Immature Granulocyte (auto 0.02 x10e3/uL (0-0.1) Prothrombin Time 12.6 seconds (11.9-14.5) Prothromb Time International Ratio 0.89 Activated Partial Thromboplast Time 28.2 seconds (23.8-35.5) Sodium Level 141 mmol/L (136-145) Potassium Level 2.9 mmol/L (3.5-5.1) Chloride Level 102 mmol/L (98-107) Carbon Dioxide Level 28 mmol/L (22-29) Anion Gap 13.9 mmol/L (8-16) Blood Urea Nitrogen 19 mg/dL (7-26) Creatinine 0.84 mg/dL (0.57-1.11) Estimat Glomerular Filtration Rate > 60 ML/MIN (60-) BUN/Creatinine Ratio 23 (6-25) Glucose Level 141 mg/dL (74-118) Calcium Level 9.5 mg/dL (8.4-10.2) Total Bilirubin 0.3 mg/dL (0.2-1.2) Aspartate Amino Transf (AST/SGOT) 21 IU/L (5-34) Alanine Aminotransferase (ALT/SGPT) 27 IU/L (0-55) Alkaline Phosphatase 66 IU/L (40-150) Creatine Kinase 83 IU/L (29-168) Creatine Kinase MB 0.80 ng/mL (0-5.0) Troponin I < 0.001 ng/mL (0-0.300) Total Protein 7.0 g/dL (6.5-8.1) Albumin 4.0 g/dL (3.5-5.0) Globulin 3.0 g/dL (2.3-3.5) Albumin/Globulin Ratio 1.3 (0.8-2.0) Lipase 43 U/L (8-78) Imaging Imaging results reviewed: Yes Impressions [facility] [address] [address] Patient Name: FIDELINA SARMIENTO MR #: [id number] : 1955 Age/Sex: 64/F Req #: [id number] Adm Physician: Ordered by: LORA MURO NP Report #: [id number] Location: ER Room/Bed: Procedure: [id number] CT/CT BRAIN WO Exam Date: 11/10/19 Exam Time: 2119 REPORT STATUS: Signed History: Fall 2 days ago Comparison studies: CT head 11/08/2019 Technique: Axial images were obtained from the skull base to the vertex. Coronal and sagittal reconstructions obtained from the axial data. Dose modulation, iterative reconstruction, and/or weight based adjustment of the mA/kV was utilized to reduce the radiation dose to as low as reasonably achievable. Findings: Scalp/skull: No abnormalities. No fractures, blastic or lytic lesions. Extra-axial spaces: No masses. No fluid collections. Brain sulci: Appropriate for age. Prominent cerebellar vermian folia. Ventricles: Normal in size and configuration. No hydrocephalus. Parenchyma: No abnormal density. No masses, hemorrhage, acute or chronic cortical vascular insults. Sellar/suprasellar region: No abnormalities Craniocervical junction: Patent foramen magnum. No Chiari one malformation. Atherosclerotic calcifications of the carotid siphons and vertebral arteries Under pneumatization right mastoid air cells. IMPRESSION: No acute abnormalities . Mild cerebellar vermis volume loss, stable. Signed by: Jesus PenaD. on 11/10/2019 9:46 PM Dictated By: LOLA CAMARGO MD 45 Transcribed By: DAREN on 11/10/192145 COPY TO: LORA MURO NP~ [place] [address] Patient Name: FIDELINA SARMIENTO MR #: [id number] : 1955 Age/Sex: 64/F Req #: [id number] Adm Physician: Ordered by: LORA MURO NP Report #: [id number] Location: ER Room/Bed: Procedure: [id number] DX/CHEST SINGLE (PORTABLE) Exam Date: 11/10/19 Exam Time: 2119 REPORT STATUS: Signed EXAMINATION: CHEST SINGLE (PORTABLE) INDICATION: None provided. COMPARISON: None FINDINGS: TUBES and LINES: None. LUNGS: Lungs are well inflated. Central vascular congestion with mild interstitial opacities. Minimal patchy bibasilar opacities, likely atelectasis. Linear subsegmental atelectasis in the left lower lung. PLEURA: No pleural effusion or pneumothorax. HEART AND MEDIASTINUM: The cardiomediastinal silhouette is unremarkable. There are atherosclerotic calcifications within the aorta. BONES AND SOFT TISSUES: No acute osseous abnormality. Globular hyperdensity adjacent to the greater tuberosity on the right, likely rotator cuff tendinopathy. UPPER ABDOMEN: No free air under the diaphragm. IMPRESSION: Findings suggestive of mild pulmonary interstitial edema. Minimal patchy bibasilar opacities, likely atelectasis, although infection is possible in the appropriate clinical setting. Signed by: Dr. 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 Multiple seizure- like activity at bedside of the R side however patient fully cognizant during each episodes. EMR from 2016 Neuro consultation reviewed and 05/2019 reviewed which showed that patient with same type of behavior and pattern as before. Prior ED visitation patient with multiple requests for pain medication and patient would progress to seizure-like activity. Patient given IV keppra during this ED evaluation. Instructed to f/u with PCP and neurology for outpatient evaluation. Rx Keppra and tylenol #3 Depart Disposition: HOME, SELF-CARE Last Vital Signs Date Time Temp Pulse Resp B/P (MAP) Pulse Ox O2 Delivery O2 Flow Rate FiO2 11/10/19 20:09 99.3 70 20 136/82 94 Home Meds Reported Medications Dicyclomine Hcl (DICYCLOMINE HCL) 20 Mg Tablet, 20 MG PO DAILY, TAB 05/30/19 Omeprazole (OMEPRAZOLE) 40 Mg Capsule.dr, PO DAILY 05/30/19 Gabapentin (GABAPENTIN) 400 Mg Capsule, 400 MG PO TID, #30 CAP 05/30/19 Hydrochlorothiazide (HYDROCHLOROTHIAZIDE) 25 Mg Tablet, 25 MG PO DAILY, #30 TAB 05/30/19 Cetirizine Hcl (CETIRIZINE HCL) 10 Mg Tablet, PO DAILY 05/30/19 Famotidine (FAMOTIDINE) 20 Mg Tab, 20 MG PO HS, #30 TAB 05/30/19 Montelukast Sodium (MONTELUKAST SODIUM) 10 Mg Tablet, 10 MG PO DAILY, #30 TAB 05/30/19 Mirtazapine (MIRTAZAPINE) 15 Mg Tab, 7.5 MG PO HS, TAB 05/30/19 Sertraline Hcl (SERTRALINE HCL) 50 Mg Tablet, 25 MG PO DAILY, #30 TAB 05/30/19 [Smx/Tmp] No Conflict Check, 1 TAB PO BID 05/30/19 Medications in the ED Levetiracetam 500 mg/Sodium Chloride 105 ml @ 420 mls/hr Q12H STAT IV ; Start 11/10/19 at 20:13; Stop 11/10/19 at 20:27; Status LAVONNE MOORE DO November 10, 2019 20:28
--- NOTE | 2019-11-10 23:53 | NUR ---
Note shekharmabel in ED - 11/10/19 at 2359 by PIETRO CALLED INTO ROOM PATIENT APPARENTLY WAS CHOKING ON POTASSIUM PILL? SHE WAS SITTING UP IN BED WITH ATTEMPTING HEIMLACH MANEUVER? INSTRUCTED PT'S HU[place]AND TO STOP SINCE PATIENT WAS MOVING AIR AND CLEARING THROAT WITH PROBLEM, NO INDICATION OF RESP DISTRESS NOTED, PT ALSO HAVING A SZ PER , PT'S RIGHT ARM AND LEG WERE "SHAKING", INSTRUCTED PT'S HUSBANDS MOST TONIC/CLONIC SZ ARE USALLY NOT UNILATERAL? PT LAID BACK DOWN AND BEGAN TO REST COMFORTABLY WITHOUT ANY RESPIATORY DISTRESS, STATES WILL WAIT FOR HER TO WAKE UP?
--- NOTE | 2019-11-10 23:53 | NUR ---
CALLED INTO ROOM PATIENT APPARENTLY WAS CHOKING ON POTASSIUM PILL? SHE WAS SITTING UP IN BED WITH ATTEMPTING HEIMLACH MANEUVER? INSTRUCTED PT'S TO STOP SINCE PATIENT WAS MOVING AIR AND CLEARING THROAT WITHOUT PROBLEM, NO INDICATION OF RESP DISTRESS NOTED, PT ALSO HAVING A SZ PER , PT'S RIGHT ARM AND LEG WERE "SHAKING", INSTRUCTED PT'S HUSBANDS MOST TONIC/CLONIC SZ ARE USALLY NOT UNILATERAL? PT LAID BACK DOWN AND BEGAN TO REST COMFORTABLY WITHOUT ANY RESPIATORY DISTRESS, NOTIFIED PT'S THAT APPEARS PT PASSED THE PILL, AND SINCE NOT CHOKING OR COUGHING IT MORE THAN LIKELY NOT IN AIRWAY PASSAGES, STATES WILL WAIT FOR HER TO WAKE UP?
== END 2019-11-11 01:05 | disposition home or self-care (01) ==
LOC: ER 19:51
DX: E87.6 Hypokalemia (principal); F44.5 Conversion disorder with seizures or convulsions
CPT/HCPCS: 36415; 70450; 71045; 80053; 81001; 82550; 82553; 83690; 84484; 85025; 85610; 85730; 99284; J1953

== ENCOUNTER 2023-05-26 18:13 | Emergency (ER) | payer MEDICARE, OTHER ==
[~2023-05-26] VITALS: Ht 154.9 cm; Wt 72.1 kg
[~2023-05-26 18:13] MED LIST changes: +AMLODIPINE BESYL5 MG PO; +HYDROXYZIN10 MG/5 ML PO; +KEPPRA1000 M1 PO; +LINZESS145 MCG PO; +LINZESS290 MCG; +NITROFURANTOIN100 MG PO; +NORTRIPTYLINE H50 MG PO; +OXYBUTYNIN CHLOR5 MG PO; +TRAZODONE HCL100 MG PO; +VITAMIN C1000 MG PO; +ZOLOFT100 MG PO; +ZYRTEC10 MG
[2023-05-26 18:20] VITALS: BP 154/89; PULSE 92; RESP 17; TEMP 99.1; O2SAT 99
[2023-05-26 19:38] LABS: BILIRUBIN,URINE NEGATIVE (NEGATIVE); CLARITY,URINE SL CLOUDY (CLEAR); COLOR,URINE YELLOW (YELLOW); GLUCOSE, URINE NEGATIVE (NEGATIVE); KETONES,URINE NEGATIVE (NEGATIVE); LEUKOCYTE ESTERASE ,URINE TRACE (NEGATIVE); NITRITE,URINE NEGATIVE (NEGATIVE); PH,URINE 5.5 (5 - 7); PROTEIN,URINE DIPSTICK NEGATIVE (NEGATIVE); URINE UROBILINOGEN 0.2 mg/dL (0.2 - 1)
[2023-05-26 19:56] LABS: BACTERIA,URINE FEW /HPF; EPITHELIAL CELLS,URINE MODERATE /LPF
[2023-05-26 20:06] LABS: BASOPHILS % 0.5 % (0.0-1.0); HEMATOCRIT 37.3 % (34.2-44.1); HEMOGLOBIN 12.3 g/dL (12.0-16.0); LYMPHOCYTES # (AUTO) 1.4 (1.0-3.2); LYMPHOCYTES % 25.8 % (18.0-39.1); MEAN CORPUSCULAR HEMOGLOBIN 29.1 pg (28-32); MEAN CORPUSCULAR VOLUME 88.2 fL (81-99); MONOCYTES # (AUTO) 0.4 (0.2-0.8); MONOCYTES % 7.1 % (4.4-11.3); NEUTROPHILS # (AUTO) 3.7 (2.1-6.9); NEUTROPHILS % 66.4 % (38.7-80.0); PLATELET COUNT 165 x10e3/uL (140-360); RED BLOOD COUNT 4.23 x10e6/uL (3.6-5.1); WHITE BLOOD COUNT 5.51 x10e3/uL (4.8-10.8)
[2023-05-26 20:27] LABS: ALBUMIN 4.3 g/dL (3.5-5.0); ALBUMIN/GLOBULIN RATIO 1.6 (0.8-2.0); ANION GAP 13.3 mmol/L (8-16); BILIRUBIN,TOTAL 0.5 mg/dL (0.2-1.2); CALCIUM 8.9 mg/dL (8.4-10.2); CREATININE, SERUM 0.68 mg/dL (0.57-1.11)
[2023-05-26 20:30] LABS: POTASSIUM 3.3 mmol/L (3.5-5.1)
[2023-05-26 21:46] VITALS: BP 128/71; PULSE 80; RESP 15; TEMP 98.7; O2SAT 100
== END 2023-05-26 22:15 | disposition home or self-care (01) ==
LOC: ER 18:20
DX: R10.84 Generalized abdominal pain (principal); R56.9 Unspecified convulsions; I10 Essential (primary) hypertension; K76.9 Liver disease, unspecified; E78.5 Hyperlipidemia, unspecified; F41.9 Anxiety disorder, unspecified; F31.9 Bipolar disorder, unspecified
CPT/HCPCS: 36415; 70450; 71250; 74176; 80053; 81001; 83690; 85025; 99284

== ENCOUNTER → 2023-11-03 | Outpatient (REF) | payer MEDICARE, OTHER ==
[~2023-11-03] MED LIST changes: +ATORVASTATIN CA20 MG PO; +EPIPEN; +GEMTESA75 MG PO; +MACROBID 100 M100 MG PO; +PROBIOTICS
== END ==
LOC: DX 09:01
PROVIDERS: ATTEND Internal Medicine Gastroenterology
DX: R13.10 Dysphagia, unspecified (principal)
CPT/HCPCS: 74220